=== PATIENT | female | born 1945 | race Caucasian/White ===

== ENCOUNTER 2016-10-14 11:08 | Inpatient (IN) | payer OTHER ==
[~2016-10-14] VITALS: Ht 157.5 cm; Wt 41.0 kg
[~2016-10-14 11:08] MED LIST: ATOR-22 PO; CALC-20 PO; ESOM45CA PO; FENO145T26 PO; MULT-845 PO; SERT1TAB71 PO
--- NOTE | 2016-10-14 11:41 | EMERGENCY ROOM VISIT NOTE ---
History Report prepared by Tanesha: Fiorella Cisse Under the Supervision of: Dr. Miracle Guerra M.D. First contact with patient: 11:27 Chief Complaint: VOMITING Stated Complaint: VOMITING, DIARRHEA, DIZZINESS Nursing Triage Summary: Triage note: Pt reports since sunday diarrhea, nausea, some vomitting, headache and dizziness. pt also reports cough x 2 weeks "my right ribs are sore and i don't know why." History of Present Illness The patient is a 71 year old female who presents to the Emergency Room with complaints of a persistent cough starting 4 days ago. She also complains of right sided chest pain and some shortness of breath. She has worsening pain with breathing. She has been smoking 1 pack of cigarettes a day for the past 50 years. She has a history of emphysema. She does not wear oxygen at home. She has not had any worsened difficulty breathing in the past few weeks. The patient initially had nausea and vomiting which has resolved. She also started having persistent diarrhea 4 days ago. A few days ago, the patient also started having dizziness and lightheadedness. When she feels lightheaded she attempts to lie down to prevent falling. She denies any injuries. This morning she had a syncopal episode. The patient denies fevers, chills, or any other complaints. She did not receive her flu shot this year. Source of History: patient Onset: 4 days ago Position: other (global) Quality: other (cough) Timing: other (persistent) Associated Symptoms: + SOB, + chest pain (right sided), + diarrhea, + nausea (resolved), + vomiting (resolved), No chills, No fevers Review of Systems See HPI for pertinent positives and negatives. A total of 10 systems reviewed and were otherwise negative. Past Medical & Surgical Medical Problems: (1) Emphysema lung (2) Syncope Family History No significant family history Social History Smoking Status: Current Every Day Smoker Housing Status: lives with family Occupation Status: retired Current/Historical Medications Scheduled Atorvastatin (Lipitor), 20 MG PO DAILY Calcium Carbonate-Vitamin D (Calcium 600 + D), 1 TAB PO BID Fenofibrate (Tricor ), 145 MG PO DAILY Sertraline Hcl (Zoloft), 50 MG PO DAILY Allergies Coded Allergies: No Known Allergies (Unverified , 12/25/14) Physical Exam Vital Signs Date Time Temp Pulse Resp B/P Pulse Ox O2 Delivery O2 Flow Rate FiO2 10/14/16 12:55 82 119/62 95 Room Air 82 127/58 84 117/63 10/14/16 12:12 92 10/14/16 12:07 91 18 106/58 92 Room Air 10/14/16 11:12 36.6 98 20 116/64 93 Room Air Physical Exam GENERAL: Patient is well appearing and in no acute distress. HEENT: No acute trauma, normocephalic atraumatic, mucous membranes moist, no nasal congestion, no scleral icterus. NECK: No stridor, no adenopathy, no meningismus, trachea is midline. LUNGS: Tactile fremitus. Prolonged I:E ratio. HEART: Tachycardic rate and regular rhythm. No murmurs, rubs, gallops appreciated. ABDOMEN: Soft, nontender, bowel sounds positive, no masses appreciated, no peritonitis. BACK: No midline tenderness, no CVA tenderness EXTREMITIES: Normal motion all extremities, no cyanosis, no edema. NEUROLOGIC: Alert and oriented, no acute motor or sensory deficits, no focal weakness, cranial nerves grossly intact. SKIN: No rash, no jaundice, no diaphoresis. Medical Decision & Procedures ER Provider Diagnostic Interpretation: X ray results and stated below per my interpretation and radiologist interpretation. CHEST 2 VIEWS ROUTINE CLINICAL HISTORY: Pneumonia, dizziness, diarrhea. COMPARISON STUDY: 12/25/2014 FINDINGS: The heart is normal in size. There is radiographic evidence of emphysema. There is dense consolidation involving the periphery of the right upper lobe. There is right hilar enlargement. Also evident are subtle left basal airspace opacities. There are no pleural effusions.[ IMPRESSION: 1. Right upper lobe pulmonary consolidation, consistent with pneumonia 2. Mild left basilar airspace opacities, likely secondary to an additional area of pneumonitis 3. Right hilar fullness. This could indicate reactive adenopathy although a central mass is not excluded 4. Radiographic follow-up subsequent to antibiotic therapy is recommended. Electronically signed by: Jon Woodruff M.D. 10/14/2016 12:56 PM Dictated Date/Time: 10/14/2016 12:54 PM As per my interpretation; right upper lobe pneumonia versus mass. Laboratory Results 10/14/16 11:35 Red Blood Count 4.21, Mean Corpuscular Volume 77.2, Mean Corpuscular Hemoglobin 27.3, Mean Corpuscular Hemoglobin Concent 35.4, Mean Platelet Volume 9.5, Neutrophils (%) (Auto) 94.5, Lymphocytes (%) (Auto) 1.1, Monocytes (%) (Auto) 2.8, Eosinophils (%) (Auto) 0.0, Basophils (%) (Auto) 0.0, Neutrophils # (Auto) 19.24, Lymphocytes # (Auto) 0.23, Monocytes # (Auto) 0.57, Eosinophils # (Auto) 0.00, Basophils # (Auto) 0.00 10/14/16 11:35 Test 10/14/16 11:35 10/14/16 12:35 10/14/16 13:03 White Blood Count 20.36 K/uL (4.8-10.8) Red Blood Count 4.21 M/uL (4.2-5.4) Hemoglobin 11.5 g/dL (12.0-16.0) Hematocrit 32.5 % (37-47) Mean Corpuscular Volume 77.2 fL (80-100) Mean Corpuscular Hemoglobin 27.3 pg (25-34) Mean Corpuscular Hemoglobin Concent 35.4 g/dl (32-36) Platelet Count 323 K/uL (130-400) Mean Platelet Volume 9.5 fL (7.4-10.4) Neutrophils (%) (Auto) 94.5 % Lymphocytes (%) (Auto) 1.1 % Monocytes (%) (Auto) 2.8 % Eosinophils (%) (Auto) 0.0 % Basophils (%) (Auto) 0.0 % Neutrophils # (Auto) 19.24 K/uL (1.4-6.5) Lymphocytes # (Auto) 0.23 K/uL (1.2-3.4) Monocytes # (Auto) 0.57 K/uL (0.11-0.59) Eosinophils # (Auto) 0.00 K/uL (0-0.5) Basophils # (Auto) 0.00 K/uL (0-0.2) RDW Standard Deviation 41.6 fL (36.4-46.3) RDW Coefficient of Variation 14.6 % (11.5-14.5) Immature Granulocyte % (Auto) 1.6 % Immature Granulocyte # (Auto) 0.32 K/uL (0.00-0.02) Anion Gap 16.0 mmol/L (3-11) Est Creatinine Clear Calc Drug Dose 16.4 ml/min Estimated GFR () 28.8 Estimated GFR (Non- 24.8 BUN/Creatinine Ratio 22.4 (10-20) Calcium Level 8.7 mg/dl (8.5-10.1) Phosphorus Level 3.3 mg/dl (2.5-4.9) Magnesium Level 1.6 mg/dl (1.8-2.4) Total Bilirubin 0.5 mg/dl (0.2-1) Direct Bilirubin 0.2 mg/dl (0-0.2) Aspartate Amino Transf (AST/SGOT) 76 U/L (15-37) Alanine Aminotransferase (ALT/SGPT) 62 U/L (12-78) Alkaline Phosphatase 225 U/L (45-117) Troponin I < 0.015 ng/ml (0-0.045) Total Protein 7.9 gm/dl (6.4-8.2) Albumin 3.1 gm/dl (3.4-5.0) Lipase 47 U/L (73-393) Venous Blood pH 7.42 (7.36-7.41) Venous Blood Partial Pressure CO2 32 mmHg (38.0-50.0) Venous Blood Partial Pressure O2 19 mmHg Venous Blood HCO3 20 mmol/L Venous Blood Oxygen Saturation < 60.0 % Venous Blood Base Excess -3.8 mmol/L Medications Administered Medications (Trade) Dose Ordered Sig/Jarrod Route Start Time Stop Time Status Last Admin Dose Admin Sodium Chloride (Nss 1000ml) 2,000 ml @ 999 mls/hr Q2H1M IV 10/14/16 12:00 11/13/16 11:59 10/14/16 12:00 999 MLS/HR Potassium Chloride (Klor-Con M10) 40 meq NOW STAT PO 10/14/16 12:36 10/14/16 12:40 DC 10/14/16 12:53 40 MEQ Magnesium Sulfate (Magnesium Sulfate) 1 gm NOW STAT IV 10/14/16 12:36 10/14/16 12:41 DC 10/14/16 12:54 1 GM ECG Indication: chest pain, SOB/dyspnea Rate (beats per minute): 91 Rhythm: normal sinus Findings: other (normal axis; normal intervals; poor r wave progression) Comparison ECG Date: December 25, 2014 Change: no significant change ED Course 1127: The patient was evaluated in room B04B. A complete history and physical exam was performed. 1200: Sodium Chloride 2000 ml @ 999 mls/hr IV 1236: Magnesium Sulfate 1 gm IV, Potassium Chloride 40 meq PO 1257: Rocephin Inj 1 gm IV 1300: Tamiflu Cap 75 mg PO, Levofloxacin 750 mg IV 1305: Upon reevaluation, the patient is resting comfortably. Discussed results and treatment plan with the patient. She verbalized understanding and agreement with the treatment plan. I discussed the patient's case with Dr. Gallegos, from [facility]. The patient will be evaluated for further management. Medical Decision Differential diagnosis: Etiologies such as infections, reactive airway disease, pneumonia, pneumothorax , COPD, CHF, cardiac ischemia, pulmonary embolism, musculoskeletal, gastrointestinal, as well as others were entertained. Patient is 71-year-old female without significant past medical history with the exception of COPD and a 50+ pack year smoking history who presents with a 5 day history of generalized weakness and syncope, vomiting, diarrhea, dehydration. She was found today to have a right upper lobe pneumonia she is at risk with structural lung disease for incontinent influenza, I have started her on empiric 1 g Rocephin IV, 750 mg of Levaquin IV, and Tamiflu 75 mg by mouth 1, her influenza antigen and reflexed PCR are still pending at this time. I discussed the case with Dr. Mortensen at [facility] for further inpatient management, she has an JAMARI which given the multiple medical conditions and complex of these she requires further inpatient management. Consults Time Called: 1300 Consulting Physician: Dr. Gallegos, from [facility] Returned Call: 1305 I discussed the patient's case with Dr. Gallegos, from [facility]. Impression Primary Impression: Right upper lobe pneumonia Additional Impressions: Nausea, vomiting, and diarrhea Hypokalemia Vomiting Hypomagnesemia JAMARI (acute kidney injury) COPD (chronic obstructive pulmonary disease) Hyponatremia Elevated alkaline phosphatase level Hypoalbuminemia Scribe Attestation The scribes documentation has been prepared under my direction and personally reviewed by me in its entirety. I confirm that the note above accurately reflects all work, treatment, procedures, and medical decision making performed by me. Departure Information Dispostion Being Evaluated By Hospitalist Referrals Uziel Fontaine M.D.(OSCAR) (PCP) Patient Instructions My [facility] Problem Qualifiers
[2016-10-14] MEDS ORDERED: SODIUM CHLORIDE 0.9% 1000ML 2,000 ML IV SCH (12:00)
[2016-10-14 12:15] LABS: COMPLETE YES; HEMATOCRIT 32.5 % (37-47); IG% 1.6 %; LYMPH % 1.1 %; LYMPH ABS # 0.23 K/uL (1.2-3.4); MEAN CELL VOLUME 77.2 fL (80-100); MEAN CORPUSCULAR HEMOGLOBIN 27.3 pg (25-34); MEAN CORPUSCULAR HGB CONC 35.4 g/dl (32-36); MEAN PLATELET VOLUME 9.5 fL (7.4-10.4); MONO % 2.8 %; NEUT % 94.5 %; PLATELET COUNT 323 K/uL (130-400); RED BLOOD COUNT 4.21 M/uL (4.2-5.4); WHITE BLOOD COUNT 20.36 K/uL (4.8-10.8)
[2016-10-14 12:36] LABS: ALKALINE PHOSPHATASE 225 U/L (45-117); ALT/SGPT 62 U/L (12-78); AST/SGOT 76 U/L (15-37); BLOOD UREA NITROGEN 45 mg/dl (7-18); BUN/CREATININE RATIO 22.4 (10-20); CALCIUM 8.7 mg/dl (8.5-10.1); CARBON DIOXIDE 19 mmol/L (21-32); CHLORIDE 95 mmol/L (98-107); GLUCOSE 124 mg/dl (70-99); MAGNESIUM 1.6 mg/dl (1.8-2.4); PHOSPHORUS 3.3 mg/dl (2.5-4.9); POTASSIUM 2.5 mmol/L (3.5-5.1); SODIUM 131 mmol/L (136-145)
[2016-10-14] MEDS ORDERED: POTASSIUM CHLORIDE 10 MEQ TABCR PO STA ×3 (12:36→21:12)
[2016-10-14] MEDS ORDERED: MAGNESIUM SULFATE 1GM / D5W 1 GM BAG IV STA (12:36)
[2016-10-14 12:53] LABS: VEN BLD GAS O2 SATURATION < 60.0 %; VEN BLOOD GAS BASE EXCESS -3.8 mmol/L; VENOUS BLOOD GAS PCO2 32 mmHg (38.0-50.0); VENOUS BLOOD GAS PO2 19 mmHg
[2016-10-14] MEDS ORDERED: CEFTRIAXONE SOD INJ 1 GM ADDVIAL IV STA (12:57)
--- NOTE | 2016-10-14 12:57 | DIAGNOSTIC IMAGING REPORT ---
CHEST 2 VIEWS ROUTINE CLINICAL HISTORY: Pneumonia, dizziness, diarrhea. COMPARISON STUDY: 12/25/2014 FINDINGS: The heart is normal in size. There is radiographic evidence of emphysema. There is dense consolidation involving the periphery of the right upper lobe. There is right hilar enlargement. Also evident are subtle left basal airspace opacities. There are no pleural effusions.[ IMPRESSION: 1. Right upper lobe pulmonary consolidation, consistent with pneumonia 2. Mild left basilar airspace opacities, likely secondary to an additional area of pneumonitis 3. Right hilar fullness. This could indicate reactive adenopathy although a central mass is not excluded 4. Radiographic follow-up subsequent to antibiotic therapy is recommended. Electronically signed by: Jon Woodruff M.D. 10/14/2016 12:56 PM Dictated Date/Time: 10/14/2016 12:54 PM
[2016-10-14] MEDS ORDERED: OSELTAMIVIR PHOSPHATE 75 MG CAP PO ONE (13:00)
[2016-10-14] MEDS ORDERED: LEVAQUIN 750MG / 150ML D5W IV ONE (13:00)
[2016-10-14] MEDS ORDERED: MAGNESIUM HYDROXIDE SUSP 30 ML UDC PO PRN (13:45)
[2016-10-14] MEDS ORDERED: ONDANSETRON INJ 2 MG/ML 2 ML VIAL IV PRN (13:45)
[2016-10-14] MEDS ORDERED: ALUMINUM/MAGNESIUM/SIMETH (MAALOX MAX) 30 ML UDC PO PRN (13:45)
[2016-10-14 14:31] VITALS: BP 146/72; PULSE 92; TEMP 36.4; O2SAT 90; O2SAT 93; Ht 157.5 cm; Wt 41.0 kg
[2016-10-14] MEDS ORDERED: POTASSIUM CHLORIDE INJ 40 MEQ in SODIUM CHLORIDE 0.9% 1000ML 1,000 ML IV SCH (15:30)
[2016-10-14 15:34] LABS: INFLUENZA A PCR Neg for Influ A (NEG); INFLUENZA B PCR Neg for Influ B (NEG)
--- NOTE | 2016-10-14 15:35 | History and Physical ---
History & Physical Date & Time of Service: Oct 14, 2016 at 15:35 Chief Complaint: Hypokalemia,Hypomagnesemia,R Upper Lobe Pneumonia Primary Care Physician: Uziel Fontaine M.D.(OSCAR) History of Present Illness Source: patient this is a 71 yo F with hx of Depression , anxiety disorder , heavy tobacco use , brought to ED by her Daughters , as pt this AM fell down in her bathroom , having ongoing nausea , vomiting , diarrhea Pt has not been feeling well since last Sunday , had fever and chills ongoing nausea , vomiting , fever , severe body ache had diarrhea pt smokes 1 pk cig a day , has chronic cough this morning -pt was found on floor of bathroom by her daughter , ongoing diarrhea , in coherent ED lab showed : WBC 20 K , hyponatremia , Hypokalemia, low mg Cxray shows dense Rt upper lobe infiltrate pt initially refused to be admitted -stating she does not like hospital, wants to go home and wants to have instructions how she can take care of her pneumonia, dehydration at home pt is counselled , updated that she is in Sepsis -critical illness due to pneumonia with severe dehydration , electrolyte derangement, need IV Abx , IVF , close monitoring in Hospital setting -good recovering with early aggressive treatment with out that she can develop septic shock -which could be life threatening pt is agreeable to stay in hospital for over weekend for treatment Daughters present at bedside Past Medical/Surgical History Medical Problems: (1) Emphysema lung Status: Chronic (2) Syncope Status: Resolved Family History No significant family history Social History Smoking Status: Current Every Day Smoker Occupational Status: retired Allergies Coded Allergies: No Known Allergies (Unverified , 12/25/14) Home Medications Scheduled Atorvastatin (Lipitor), 20 MG PO DAILY Calcium Carbonate-Vitamin D (Calcium 600 + D), 1 TAB PO BID Fenofibrate (Tricor ), 145 MG PO DAILY Sertraline Hcl (Zoloft), 50 MG PO DAILY Review of Systems Constitutional: + chills, + fatigue, + fever, + sweats, + weakness Respiratory: + cough, + dyspnea on exertion, + shortness of breath, + sputum, + wheezing Cardiovascular: + PND, + chest pain, + orthopnea Abdomen: + diarrhea, + nausea, + pain, + vomiting Musculoskeletal: + muscle pain Neurologic: + vertigo, + weakness Physical Exam Vital Signs Date Time Temp Pulse Resp B/P Pulse Ox O2 Delivery O2 Flow Rate FiO2 10/14/16 14:31 36.4 92 25 146/72 90 Room Air 10/14/16 14:21 87 16 129/71 93 Room Air 10/14/16 13:45 82 20 137/74 92 Room Air 10/14/16 12:55 82 119/62 95 Room Air 82 127/58 84 117/63 10/14/16 12:12 92 10/14/16 12:07 91 18 106/58 92 Room Air 10/14/16 11:12 36.6 98 20 116/64 93 Room Air General Appearance: no apparent distress, + thin Head: normocephalic, atraumatic Eyes: normal inspection Respiratory/Chest: + decreased breath sounds, + rales (at rt base ) Cardiovascular: regular rate, rhythm Abdomen/GI: non tender, soft Extremities/Musculoskelatal: normal capillary refill, no pedal edema, normal range of motion Neurologic/Psych: no motor/sensory deficits, alert, normal mood/affect, oriented x 3 Skin: normal color, warm/dry, no rash Lymphatic: no adenopathy Diagnostics Laboratory Results Results Past 24 Hours Test 10/14/16 11:34 10/14/16 11:35 10/14/16 12:35 10/14/16 13:03 Range/Units D-Dimer 930 0-500 ug/L FEU Influenza Type A (RT-PCR) Neg for Influ A NEG Influenza Type B (RT-PCR) Neg for Influ B NEG White Blood Count 20.36 4.8-10.8 K/uL Red Blood Count 4.21 4.2-5.4 M/uL Hemoglobin 11.5 12.0-16.0 g/dL Hematocrit 32.5 37-47 % Mean Corpuscular Volume 77.2 80-100 fL Mean Corpuscular Hemoglobin 27.3 25-34 pg Mean Corpuscular Hemoglobin Concent 35.4 32-36 g/dl Platelet Count 323 130-400 K/uL Mean Platelet Volume 9.5 7.4-10.4 fL Neutrophils (%) (Auto) 94.5 % Lymphocytes (%) (Auto) 1.1 % Monocytes (%) (Auto) 2.8 % Eosinophils (%) (Auto) 0.0 % Basophils (%) (Auto) 0.0 % Neutrophils # (Auto) 19.24 1.4-6.5 K/uL Lymphocytes # (Auto) 0.23 1.2-3.4 K/uL Monocytes # (Auto) 0.57 0.11-0.59 K/uL Eosinophils # (Auto) 0.00 0-0.5 K/uL Basophils # (Auto) 0.00 0-0.2 K/uL RDW Standard Deviation 41.6 36.4-46.3 fL RDW Coefficient of Variation 14.6 11.5-14.5 % Immature Granulocyte % (Auto) 1.6 % Immature Granulocyte # (Auto) 0.32 0.00-0.02 K/uL Sodium Level 131 136-145 mmol/L Potassium Level 2.5 3.5-5.1 mmol/L Chloride Level 95 98-107 mmol/L Carbon Dioxide Level 19 21-32 mmol/L Anion Gap 16.0 3-11 mmol/L Blood Urea Nitrogen 45 7-18 mg/dl Creatinine 2.00 0.60-1.20 mg/dl Est Creatinine Clear Calc Drug Dose 16.4 ml/min Estimated GFR () 28.8 Estimated GFR (Non- 24.8 BUN/Creatinine Ratio 22.4 10-20 Random Glucose 124 70-99 mg/dl Calcium Level 8.7 8.5-10.1 mg/dl Phosphorus Level 3.3 2.5-4.9 mg/dl Magnesium Level 1.6 1.8-2.4 mg/dl Total Bilirubin 0.5 0.2-1 mg/dl Direct Bilirubin 0.2 0-0.2 mg/dl Aspartate Amino Transf (AST/SGOT) 76 15-37 U/L Alanine Aminotransferase (ALT/SGPT) 62 12-78 U/L Alkaline Phosphatase 225 45-117 U/L Troponin I < 0.015 0-0.045 ng/ml Total Protein 7.9 6.4-8.2 gm/dl Albumin 3.1 3.4-5.0 gm/dl Lipase 47 73-393 U/L Venous Blood pH 7.42 7.36-7.41 Venous Blood Partial Pressure CO2 32 38.0-50.0 mmHg Venous Blood Partial Pressure O2 19 mmHg Venous Blood HCO3 20 mmol/L Venous Blood Oxygen Saturation < 60.0 % Venous Blood Base Excess -3.8 mmol/L Lactic Acid Level 0.9 0.4-2.0 mmol/L Diagnostic Radiology CHEST 2 VIEWS ROUTINE CLINICAL HISTORY: Pneumonia, dizziness, diarrhea. COMPARISON STUDY: 12/25/2014 FINDINGS: The heart is normal in size. There is radiographic evidence of emphysema. There is dense consolidation involving the periphery of the right upper lobe. There is right hilar enlargement. Also evident are subtle left basal airspace opacities. There are no pleural effusions.[ IMPRESSION: 1. Right upper lobe pulmonary consolidation, consistent with pneumonia 2. Mild left basilar airspace opacities, likely secondary to an additional area of pneumonitis 3. Right hilar fullness. This could indicate reactive adenopathy although a central mass is not excluded 4. Radiographic follow-up subsequent to antibiotic therapy is recommended. Impression Assessment and Plan SEPSIS : meets criteria -presents with fever , leukocytosis , tachycardia source of infection -Rt upper lobe pneumonia IV fluids Abx with Levaquin follow blood culture Influenza Ag negative RT UPPER LOBE PNEUMONIA presents with non productive cough 3-4 days of fever , not feeling well , poor appetite Cxray shows RUL pneumonia pt is a chronic heavy smoker -did not had formal diagnosis of COPD empiric Abx with Levaquin blood //sputum culture and gram statin ordered repeat Cxray in AM does not have any audible wheeze no evidence of Hypoxia cont to monitor clinically pt is counselled for smoking cessation NAUSEA/VOMITING /DIARRHEA possible due to viral gastroenteritis Flu PCR negative supportive care with IV Fluids antiemetics ordered stool for C diff MARKED LEUKOCYTOSIS due to above viral illness /RUL pneumonia Lactic acid level 0.9 Abx , fluid resuscitation follow blood /urine /sputum culture stool c diff daily CBC ordered ELECTROLYTE DERANGEMENTS ( LOW NA/LOW K/LOW MG ) Hyponatremia Na 131 /Marked Hypokalemia K 2.5 /Hypomagnesemia Mg 1.6 due to GI loss -as per Daughters pt has not eaten for past 2-3 days had ongoing Diarrhea /vomiting given 40 meq KCL PO in ED ordered for 20 meq PO IVF NSS + 40 meq @ 100 ml /hr given 1 gm Mg sulfate in ER repeat Labs at 1600 cont to monitor PRP and correct lytes accordingly JAMARI : due to above GI loss ( cr 0.8 on 06/02 ) /poor PO intake , pneumonia IVF avoid nephrotoxins -no NSAID's , contrast studies follow PRP HX OF HYPERLIPIDEMIA cont statin ANXIETY DISORDER/DEPRESSION cont Zoloft PRN Ativan ordered FULL CODE DVT PROPHYLAXIS : DISPOSITION : expected to return to home when medically stable Medicine follow up with Dr Fontaine at [facility] Plan of care d/w patient and daughters Pt was initially very reluctant to stay in hospital -later agreeable to stay till Sunday to receive IV antibiotics , Fluids and electrolyte supplement pt will be followed by Dr Langford form tomorrow 10/15/16 Advanced Directives Existing Advance Directive: No Existing Living Will: No Existing Power of Inspector Fibrous Wallboard: No VTE Prophylaxis VTE Risk Assessment Done? Y/N: Yes Risk Level: Moderate
[2016-10-14] MEDS ORDERED: ALBUT/IPRATROP 3MG/0.5MG NEB 3 ML VIAL INH PRN (15:45)
[2016-10-14 15:54] LABS: INR 1.6 (0.9-1.1); PROTHROMBIN TIME (PATIENT) 17.8 SECONDS (9.0-12.0)
[2016-10-14 16:00] VITALS: PULSE 95
[2016-10-14 16:10] LABS: URINE APPEARANCE CLEAR (CLEAR); URINE BILIRUBIN NEG (NEG); URINE COLOR YELLOW; URINE EPITHELIAL CELL AUTO >30 /lpf (0-5); URINE NITRITE NEG (NEG); URINE SPECIFIC GRAVITY 1.015 (1.000-1.030); UROBILINOGEN NEG (NEG); ZZUR CULT IF INDIC CLEAN CATCH NO
[2016-10-14] MEDS ORDERED: LEVOFLOXACIN CONSULT ACTIVE PRN (16:15)
[2016-10-14] MEDS ORDERED: POTASSIUM PHOS 3 MMOL/1 ML INFUSION IV STA (16:18)
[2016-10-14 16:24] LABS: MANUAL MICROSCOPIC REQUIRED? NO; REVIEW REQ? YES
[2016-10-14] MEDS ORDERED: NURSING VERBAL MED ORDER ONE ×2 (16:30→17:15)
[2016-10-14 16:41] LABS: BUN/CREATININE RATIO 23.6 (10-20); CALCIUM 8.2 mg/dl (8.5-10.1); CREATININE 1.7 mg/dl (0.60-1.20); MAGNESIUM 2.1 mg/dl (1.8-2.4); POTASSIUM 2.5 mmol/L (3.5-5.1)
[2016-10-14] MEDS ORDERED: MAGNESIUM SULFATE 1GM / D5W 1 GM in PREMIXED IN D5W 100 ML IV SCH (17:00)
[2016-10-14] MEDS: POTASSIUM CHLORIDE 20 MEQ TABCR PO SCH ×2 (17:44→18:18)
[2016-10-14 20:47] VITALS: BP 120/64; PULSE 104; TEMP 36.7; O2SAT 91
[2016-10-14 20:56] LABS: BUN/CREATININE RATIO 24.6 (10-20); CREATININE 1.6 mg/dl (0.60-1.20); POTASSIUM 2.8 mmol/L (3.5-5.1)
[2016-10-14] MEDS ORDERED: METOPROLOL TARTRATE 50 MG TAB PO SCH (21:00)
[2016-10-14] MEDS: NSS + 20MEQ KCL 1000ML 1,000 ML IV SCH (21:26)
[2016-10-14] MEDS: CALCIUM 600MG + VIT D 400 IU TAB PO SCH (21:28)
[2016-10-14] MEDS: HEPARIN SOD 5000 UNIT/0.5 ML CARP SQ SCH (21:29)
--- NOTE | 2016-10-14 21:30 | Progress Note ---
Progress Note ATTENDING NOTE : repeat lab checked at 1999 continues to improve : NA 133 , k 2.8 , cr improved 1.6 , Mg 2.1 ordered for 40meq PO K changed IVF NSS + 20 meq rate increased 125 ml /hr repeat all labs in AM remains afebrile, mild tachycardia 104 ; BP stable cont to monitor in tele
[2016-10-14 23:33] VITALS: BP 148/69; PULSE 99; TEMP 36.7; O2SAT 92
[2016-10-15] VITALS (13 sets, daily range): BP systolic 108–200; BP diastolic 60–85; PULSE 90–109; TEMP 36.3–36.7; O2SAT 75–90
[2016-10-15] MEDS: POTASSIUM CHLR 10 MEQ / WTR 10 MEQ in PREMIXED WATER 100 ML IV SCH ×2 (05:15→05:16)
[2016-10-15] MEDS: NSS + 20MEQ KCL 1000ML 1,000 ML IV SCH ×2 (05:17→17:54)
[2016-10-15] MEDS ORDERED: VANCOMYCIN HCL 125 MG/2.5ML SOLN PO ONE (05:52)
[2016-10-15 05:55] LABS: HEMATOCRIT 28.3 % (37-47); MEAN CELL VOLUME 76.7 fL (80-100); MEAN CORPUSCULAR HEMOGLOBIN 26.8 pg (25-34); MEAN PLATELET VOLUME 9.3 fL (7.4-10.4); PLATELET COUNT 280 K/uL (130-400); RED BLOOD COUNT 3.69 M/uL (4.2-5.4); WHITE BLOOD COUNT 15.73 K/uL (4.8-10.8)
[2016-10-15] MEDS ORDERED: RASPBERRY SYRUP 5 ML UDP PO STA (06:05)
[2016-10-15 06:15] LABS: COMPLETE YES; IG% 7.4 %; LYMPH % 1.8 %; LYMPH ABS # 0.28 K/uL (1.2-3.4); MONO % 2.9 %; NEUT % 87.9 %
[2016-10-15 06:30] LABS: BUN/CREATININE RATIO 29.8 (10-20); CALCIUM 8.8 mg/dl (8.5-10.1); CREATININE 1.2 mg/dl (0.60-1.20); MAGNESIUM 1.9 mg/dl (1.8-2.4); POTASSIUM 4.2 mmol/L (3.5-5.1)
[2016-10-15 06:41] LABS: ALB/GLOB RATIO 0.6 (0.9-2)
[2016-10-15] MEDS: HEPARIN SOD 5000 UNIT/0.5 ML CARP SQ SCH ×2 (08:03→20:56)
[2016-10-15] MEDS: POTASSIUM CHLORIDE 20 MEQ TABCR PO SCH (08:05)
[2016-10-15] MEDS: SERTRALINE HCL 50 MG TAB PO SCH (08:05)
[2016-10-15] MEDS: VANCOMYCIN HCL 125 MG/2.5ML SOLN PO SCH ×4 (08:05→20:57)
[2016-10-15] MEDS: RASPBERRY SYRUP 5 ML UDP PO SCH ×4 (08:05→20:57)
[2016-10-15] MEDS: ATORVASTATIN 20 MG TAB PO SCH (08:05)
[2016-10-15] MEDS: FENOFIBRATE 145 MG TAB PO SCH (08:05)
--- NOTE | 2016-10-15 08:22 | DIAGNOSTIC IMAGING REPORT ---
CHEST ONE VIEW PORTABLE HISTORY: right upper lobe pneumonia COMPARISON: Chest 10/14/2016. FINDINGS: Progressive airspace opacity involving the right lung. The heart is normal in size. Left basilar interstitial thickening remains unchanged. No pneumothorax. Mild emphysema. Right hilar fullness is again noted. IMPRESSION: Progressive right lung airspace opacity consistent with worsening pneumonia. Right hilar fullness and left lower lobe interstitial opacities persist. Recommend follow to complete resolution. Electronically signed by: Chandra Tomas M.D. 10/15/2016 8:21 AM Dictated Date/Time: 10/15/2016 8:20 AM
[2016-10-15] MEDS: CALCIUM 600MG + VIT D 400 IU TAB PO SCH ×2 (09:27→21:08)
[2016-10-15] MEDS: LACTOBACILLUS ACIDOPHILUS (FLORANEX) TAB PO SCH ×3 (09:27→18:30)
--- NOTE | 2016-10-15 10:56 | Progress Note ---
Internal Med Progress Note Date of Service: Oct 15, 2016. Provider Documentation: SUBJECTIVE: Patient is alert/awake & is sitting comfortably in the bed in no distress. Breathing comfortably. Denies any nausea/vomiting. Diarrhea is improving. No abdominal pain. No other new change or complaint. OBJECTIVE: Vital Signs-as noted below Examination: General Appearance: Alert/Awake in no apparent distress, + thin Head: normocephalic, atraumatic Eyes: normal inspection ENT: Hearing is normal.Ears, Nose & Throat are normal looking. Neck: Supple, Midline trachea, No JVD. Respiratory/Chest: B/L Moderate air entry, Few fine rales heard at Right lung base. Cardiovascular: regular rate, rhythm, Normal S1,S2. Abdomen/GI: non tender, soft Extremities/Musculoskeletal: normal capillary refill, no pedal edema, normal range of motion Neurologic/Psych: no motor/sensory deficits, alert, normal mood/affect, oriented x 3 Skin: normal color, warm/dry, no rash Lymphatic: no adenopathy Lab data as noted below. ASSESSMENT & PLAN: Right Upper Lobe Pneumonia: Presents with non productive cough with3-4 days of fever , not feeling well , poor appetite Chest X-Ray shows RUL pneumonia. Patient is a chronic heavy smoker -did not had formal diagnosis of COPD. Clinically improving. -Continue Levaquin (Day # 2), -Cultures are negative so far -Reviewed repeat Chest X-Ray in AM -Patient is counselled for smoking cessation -Encouraged to ambulate in AM. C, Diff Colitis: Started on PO Vancomycin(Day # 1)and Lactobacillus. -Nausea/Vomiting has resolved -Diarrhea is resolving. Electrolyte Abnormalities: Resolving.Following closely. -Will replace as needed. Acute Kidney Injury: Due to volume depletion. Gradually improving. -Continue IVF -Avoid any Nephrotoxin. Hyperlipidemia: Continue Statin. History Anxiety/Depression: Stable. Continue Zoloft. -Ativan as needed. Code Status: FULL CODE DVT Prophylaxis: SCDs. Disposition: : Expected to return to home when medically stable. Ordered PT. Medicine follow up with Dr Fontaine at [facility] Vital Signs: Date Time Temp Pulse Resp B/P Pulse Ox O2 Delivery O2 Flow Rate FiO2 10/15/16 08:00 Nasal Cannula 2.0 10/15/16 07:45 36.3 101 18 151/65 90 2.0 10/15/16 04:33 Nasal Cannula 2.0 10/15/16 03:59 36.4 91 20 108/60 89 Nasal Cannula 2.0 10/15/16 00:06 Nasal Cannula 2.0 10/14/16 23:33 36.7 99 20 148/69 92 Nasal Cannula 2.0 10/14/16 20:47 36.7 104 22 120/64 91 Nasal Cannula 2.0 10/14/16 20:07 Nasal Cannula 2.0 10/14/16 16:10 Nasal Cannula 2.0 10/14/16 16:00 95 18 10/14/16 14:31 36.4 92 25 146/72 90 Room Air 10/14/16 14:21 87 16 129/71 93 Room Air 10/14/16 13:45 82 20 137/74 92 Room Air 10/14/16 12:55 82 119/62 95 Room Air 82 127/58 84 117/63 10/14/16 12:12 92 10/14/16 12:07 91 18 106/58 92 Room Air 10/14/16 11:12 36.6 98 20 116/64 93 Room Air Lab Results: Results Past 24 Hours Test 10/14/16 11:34 10/14/16 11:35 10/14/16 12:35 10/14/16 13:03 Range/Units Prothrombin Time 17.8 9.0-12.0 SECONDS Prothromb Time International Ratio 1.6 0.9-1.1 D-Dimer 930 0-500 ug/L FEU Influenza Type A (RT-PCR) Neg for Influ A NEG Influenza Type B (RT-PCR) Neg for Influ B NEG White Blood Count 20.36 4.8-10.8 K/uL Red Blood Count 4.21 4.2-5.4 M/uL Hemoglobin 11.5 12.0-16.0 g/dL Hematocrit 32.5 37-47 % Mean Corpuscular Volume 77.2 80-100 fL Mean Corpuscular Hemoglobin 27.3 25-34 pg Mean Corpuscular Hemoglobin Concent 35.4 32-36 g/dl Platelet Count 323 130-400 K/uL Mean Platelet Volume 9.5 7.4-10.4 fL Neutrophils (%) (Auto) 94.5 % Lymphocytes (%) (Auto) 1.1 % Monocytes (%) (Auto) 2.8 % Eosinophils (%) (Auto) 0.0 % Basophils (%) (Auto) 0.0 % Neutrophils # (Auto) 19.24 1.4-6.5 K/uL Lymphocytes # (Auto) 0.23 1.2-3.4 K/uL Monocytes # (Auto) 0.57 0.11-0.59 K/uL Eosinophils # (Auto) 0.00 0-0.5 K/uL Basophils # (Auto) 0.00 0-0.2 K/uL RDW Standard Deviation 41.6 36.4-46.3 fL RDW Coefficient of Variation 14.6 11.5-14.5 % Immature Granulocyte % (Auto) 1.6 % Immature Granulocyte # (Auto) 0.32 0.00-0.02 K/uL Sodium Level 131 136-145 mmol/L Potassium Level 2.5 3.5-5.1 mmol/L Chloride Level 95 98-107 mmol/L Carbon Dioxide Level 19 21-32 mmol/L Anion Gap 16.0 3-11 mmol/L Blood Urea Nitrogen 45 7-18 mg/dl Creatinine 2.00 0.60-1.20 mg/dl Est Creatinine Clear Calc Drug Dose 16.4 ml/min Estimated GFR () 28.8 Estimated GFR (Non- 24.8 BUN/Creatinine Ratio 22.4 10-20 Random Glucose 124 70-99 mg/dl Calcium Level 8.7 8.5-10.1 mg/dl Phosphorus Level 3.3 2.5-4.9 mg/dl Magnesium Level 1.6 1.8-2.4 mg/dl Total Bilirubin 0.5 0.2-1 mg/dl Direct Bilirubin 0.2 0-0.2 mg/dl Aspartate Amino Transf (AST/SGOT) 76 15-37 U/L Alanine Aminotransferase (ALT/SGPT) 62 12-78 U/L Alkaline Phosphatase 225 45-117 U/L Troponin I < 0.015 0-0.045 ng/ml Total Protein 7.9 6.4-8.2 gm/dl Albumin 3.1 3.4-5.0 gm/dl Lipase 47 73-393 U/L Hepatitis C Antibody Screen NEG NEG Venous Blood pH 7.42 7.36-7.41 Venous Blood Partial Pressure CO2 32 38.0-50.0 mmHg Venous Blood Partial Pressure O2 19 mmHg Venous Blood HCO3 20 mmol/L Venous Blood Oxygen Saturation < 60.0 % Venous Blood Base Excess -3.8 mmol/L Lactic Acid Level 0.9 0.4-2.0 mmol/L Test 10/14/16 15:55 10/14/16 16:00 10/14/16 20:30 10/15/16 05:10 Range/Units Urine Color YELLOW Urine Appearance CLEAR CLEAR Urine pH 5.0 4.5-7.5 Urine Specific Ucon 1.015 1.000-1.030 Urine Protein 1+ NEG Urine Glucose (UA) NEG NEG Urine Ketones NEG NEG Urine Occult Blood TRACE NEG Urine Nitrite NEG NEG Urine Bilirubin NEG NEG Urine Urobilinogen NEG NEG Urine Leukocyte Esterase NEG NEG Urine WBC (Auto) 5-10 0-5 /hpf Urine RBC (Auto) 0-4 0-4 /hpf Urine Hyaline Casts (Auto) 1-5 0-5 /lpf Urine Epithelial Cells (Auto) >30 0-5 /lpf Urine Bacteria (Auto) NEG NEG Urine Renal Epithelial Cells 0-5 0-5 /lpf Sodium Level 134 133 135 136-145 mmol/L Potassium Level 2.5 2.8 4.2 3.5-5.1 mmol/L Chloride Level 99 100 107 98-107 mmol/L Carbon Dioxide Level 19 18 18 21-32 mmol/L Anion Gap 16.0 15.0 10.0 3-11 mmol/L Blood Urea Nitrogen 40 39 36 7-18 mg/dl Creatinine 1.70 1.60 1.20 0.60-1.20 mg/dl Est Creatinine Clear Calc Drug Dose 19.2 20.4 27.2 ml/min Estimated GFR () 35.0 37.7 53.4 Estimated GFR (Non- 30.2 32.5 46.1 BUN/Creatinine Ratio 23.6 24.6 29.8 10-20 Random Glucose 96 84 65 70-99 mg/dl Calcium Level 8.2 8.0 8.8 8.5-10.1 mg/dl Magnesium Level 2.1 1.9 1.8-2.4 mg/dl White Blood Count 15.73 4.8-10.8 K/uL Red Blood Count 3.69 4.2-5.4 M/uL Hemoglobin 9.9 12.0-16.0 g/dL Hematocrit 28.3 37-47 % Mean Corpuscular Volume 76.7 80-100 fL Mean Corpuscular Hemoglobin 26.8 25-34 pg Mean Corpuscular Hemoglobin Concent 35.0 32-36 g/dl Platelet Count 280 130-400 K/uL Mean Platelet Volume 9.3 7.4-10.4 fL Neutrophils (%) (Auto) 87.9 % Lymphocytes (%) (Auto) 1.8 % Monocytes (%) (Auto) 2.9 % Eosinophils (%) (Auto) 0.0 % Basophils (%) (Auto) 0.0 % Neutrophils # (Auto) 13.83 1.4-6.5 K/uL Lymphocytes # (Auto) 0.28 1.2-3.4 K/uL Monocytes # (Auto) 0.46 0.11-0.59 K/uL Eosinophils # (Auto) 0.00 0-0.5 K/uL Basophils # (Auto) 0.00 0-0.2 K/uL RDW Standard Deviation 41.8 36.4-46.3 fL RDW Coefficient of Variation 14.6 11.5-14.5 % Immature Granulocyte % (Auto) 7.4 % Immature Granulocyte # (Auto) 1.16 0.00-0.02 K/uL Total Bilirubin 0.4 0.2-1 mg/dl Aspartate Amino Transf (AST/SGOT) 52 15-37 U/L Alanine Aminotransferase (ALT/SGPT) 46 12-78 U/L Alkaline Phosphatase 213 45-117 U/L Total Protein 6.5 6.4-8.2 gm/dl Albumin 2.4 3.4-5.0 gm/dl Globulin 4.1 2.5-4.0 gm/dl Albumin/Globulin Ratio 0.6 0.9-2 Microbiology Results 10/14/16 Blood Culture, Received Pending 10/14/16 Blood Culture, Received Pending 10/15/16 Shiga Toxin Test, Received Pending 10/15/16 Stool Culture, Received Pending 10/15/16 WBC Smear - Final, Complete 10/15/16 C.difficile Toxin B Gene (PCR) - Final, Complete Positive for C. difficile toxin B gene
[2016-10-15] MEDS: BOOST PLUS VANILLA PO SCH ×4 (14:10→20:57)
[2016-10-15] MEDS ORDERED: ALBUT/IPRATROP 3MG/0.5MG NEB 3 ML VIAL INH ONE (22:09)
--- NOTE | 2016-10-15 22:41 | DIAGNOSTIC IMAGING REPORT ---
CHEST ONE VIEW PORTABLE CLINICAL HISTORY: reps distress dyspnea COMPARISON STUDY: 10/15/2016 7:22 AM FINDINGS: Slightly progressive interstitial infiltrative change at both lung bases. Unchanging right midlung and right upper lobe consolidative change. Left upper lung remains generally clear. No evidence for significant cardiac enlargement. IMPRESSION: Slightly progressive bibasilar parenchymal infiltrative change. All remaining findings are similar. Electronically signed by: Allan Taylor M.D. 10/15/2016 10:40 PM Dictated Date/Time: 10/15/2016 10:39 PM
[2016-10-15 22:54] LABS: ARTERIAL BLD GAS O2 SATURATION 87.2 % (90-95); ARTERIAL BLOOD GAS BASE EXCESS -3.1 mEq/L (-9-1.8); ARTERIAL BLOOD GAS HCO3 20 mmol/L (19-24); ARTERIAL BLOOD GAS PO2 65 mm/Hg (80-95); ARTERIAL BLOOD GAS pH 7.48 (7.35-7.45)
[2016-10-15 22:55] LABS: ALLEN TEST POS (POS); O2 ADMINISTRATION 6 L
[2016-10-15] MEDS ORDERED: VANCOMYCIN INJ 0 MG in SODIUM CHLORIDE 0.9% 250ML 250 ML IV SCH (23:15)
--- NOTE | 2016-10-15 23:18 | Progress Note ---
Progress Note [facility] Called to see patient for worsening oxygenation. Staff noted O2 sats in the 70's and 80's on 5 L NC. Patient denies SOB. No chest pain. Occasional nonproductive cough. Exam: General - chronically-ill appearing, somewhat tachypneic, no acute distress Neck- + JVD Lungs- diffuse moderate wheezing, coarse rales RUL, finer rales at bases Heart- distant heart sounds, RRR, tachy Extr- trace pretibial edema Stat portable chest x-ray: RUL infiltrate, worsening multilobar infiltrates bilaterally. ABG on 6 L NC: pO2 65, pCO2 27, HCO3 20, pH 7.48. A/P: 71 YO smoker, admitted with RUL pneumonia. O2 sats 93% on RA in ED. Influenza PCR negative. Now with acute respiratory failure, worsening CXR. Differential diagnosis includes progressive pneumonia, ARDS, pulmonary edema. Patent transferred to ICU and stat labs ordered. Case discussed with [facility] medicine who assumed care of patient. Daughter called with update. .
[2016-10-15] MEDS ORDERED: VANCOMYCIN INJ 1,000 MG in SODIUM CHLORIDE 0.9% 250ML 250 ML IV SCH (23:30)
[2016-10-15] MEDS ORDERED: VANCOMYCIN CONSULT ACTIVE PRN (23:30)
[2016-10-15] MEDS ORDERED: PIPERACILL/TAZOBAC IV 3.375 GM in DEXTROSE 5% 100ML 100 ML IV SCH (23:30)
[2016-10-15] MEDS ORDERED: RAPID SEQUENCE INDUCTION BAG ONE (23:37)
[2016-10-15 23:54] LABS: BASO % 0.1 %; BASO ABS # 0.01 K/uL (0-0.2); COMPLETE YES; EOS % 0.1 %; HEMATOCRIT 31.4 % (37-47); IG% 2.5 %; LYMPH % 3.6 %; MEAN CELL VOLUME 76.2 fL (80-100); MEAN CORPUSCULAR HEMOGLOBIN 27.4 pg (25-34); MONO % 3.4 %; NEUT % 90.3 %; PLATELET COUNT 370 K/uL (130-400); RED BLOOD COUNT 4.12 M/uL (4.2-5.4); WHITE BLOOD COUNT 16.71 K/uL (4.8-10.8)
[2016-10-16] VITALS (23 sets, daily range): BP systolic 117–180; BP diastolic 64–95; PULSE 78–102; TEMP 36.4–36.9; O2SAT 75–100
[2016-10-16 00:08] LABS: INR 1.5 (0.9-1.1); PARTIAL THROMBOPLASTIN RATIO 1.7
[2016-10-16 00:20] LABS: BUN/CREATININE RATIO 25.9 (10-20); CREATININE 0.79 mg/dl (0.60-1.20); MAGNESIUM 1.6 mg/dl (1.8-2.4); POTASSIUM 3.4 mmol/L (3.5-5.1)
[2016-10-16] MEDS ORDERED: [UNRECOGNIZED DRUG - OTHER] IV STA (00:26)
[2016-10-16] MEDS ORDERED: PREMIXED IV STA (00:26)
[2016-10-16] MEDS ORDERED: D5W IV STA (00:26)
[2016-10-16] MEDS ORDERED: MAGNESIUM SULFATE IV STA (00:26)
[2016-10-16 00:27] LABS: ALB/GLOB RATIO 0.6 (0.9-2)
[2016-10-16] MEDS ORDERED: PIPERACILL/TAZOBAC CONSULT ACTIVE PRN (00:30)
[2016-10-16] MEDS ORDERED: POTASSIUM CHLR 10 MEQ / WTR 10 MEQ in PREMIXED WATER 100 ML IV SCH (00:30)
[2016-10-16] MEDS ORDERED: ASPIRIN 81 MG CHEW PO STA ×2 (00:33→00:39)
[2016-10-16] MEDS ORDERED: HEPARIN IV LOW DOSE NO BOLUS STA (00:33)
[2016-10-16] MEDS ORDERED: METOPROLOL TARTRATE 1 MG/ML VIAL IV STA (00:39)
[2016-10-16] MEDS ORDERED: PANTOprazole INJ 40 MG in SYRINGE 0 ML IV STA (00:39)
[2016-10-16] MEDS ORDERED: FUROSEMIDE INJ 20 MG in SYRINGE 0 ML IV STA (00:40)
[2016-10-16] MEDS ORDERED: FUROSEMIDE 40 MG/4 ML VIAL IV STA (00:41)
[2016-10-16] MEDS ORDERED: POTASSIUM CHLORIDE 10 MEQ TABCR PO STA (00:41)
[2016-10-16] MEDS: NITROGLYCERIN OINT 2% 1GM PACKET EXT SCH ×5 (00:50→23:29)
[2016-10-16 01:03] LABS: CKMB/CK RATIO 14.9 (0-3.0)
[2016-10-16] MEDS ORDERED: HEPARIN IV BOLUS 3,000 UNIT in SYRINGE 0 ML IV STA (01:19)
--- NOTE | 2016-10-16 01:22 | Critical Care Consultation ---
Critical Care Consultation Date of Consultation: Oct 16, 2016. Attending Physician: Frank Langford MD Reason for Consultation: Hypoxic respiratory failure History of Present Illness Patient is a 71-year-old female who has a significant past medical history for gastroesophageal reflux, mild depression, and emphysematous lung disease with a greater than 84-liah-cecf smoking history, the patient continues to smoke at the present time. She was initially seen in the emergency department for a cough on October 14, she was diagnosed with an acute kidney injury, right upper lobe pneumonia, nausea vomiting diarrhea, hypomagnesemia, hypo-Jackie anemia, and hyponatremia. He was started on Levaquin and Rocephin for presumptive community-acquired pneumonia. She was later discovered to be positive for C. difficile colitis. There is no significant antibiotic use history in the recent past. She has influenza negative, and and was feeling better in the last 24 hours until early this evening she started having increasing shortness of breath. She's noticed to have increasing oxygen requirements and her oxygen saturations were dipping into the 70s. Repeat chest x-ray revealed bilateral alveolar infiltrates, improvement in the right upper lobe pneumonia. When I evaluated the patient in the ICU, she was mildly dyspneic, however able to talk in full sentences, and requiring 6 L of oxygen via nasal cannula, this was switched to a simple Ventimask as her saturations were still low 80s with conversation. At this point were antibiotics have been changed to vancomycin, Zosyn, discontinuation of Levaquin, and oral vancomycin. Family History No significant family history Social History Smoking Status: Current Every Day Smoker Housing Status: lives with family Occupation Status: retired Allergies Coded Allergies: No Known Allergies (Unverified , 12/25/14) Home Medications Scheduled Atorvastatin (Lipitor), 20 MG PO DAILY Calcium Carbonate-Vitamin D (Calcium 600 + D), 1 TAB PO BID Fenofibrate (Tricor ), 145 MG PO DAILY Sertraline Hcl (Zoloft), 50 MG PO DAILY Current Inpatient Medications Current Inpatient Medications Medications (Trade) Dose Ordered Sig/Jarrod Route Start Time Stop Time Status Last Admin Dose Admin Heparin Sodium (Porcine) (Heparin Sq 5000 Unit/0.5ml) 5,000 unit Q12 SQ 10/14/16 21:00 11/13/16 20:59 10/15/16 20:56 5,000 UNIT Acetaminophen (Tylenol Tab) 650 mg Q4H PRN PO 10/14/16 13:45 11/13/16 13:44 Al Hydrox/Mg Hydrox/Simethicone (Maalox Max Susp) 15 ml Q4H PRN PO 10/14/16 13:45 11/13/16 13:44 Magnesium Hydroxide (Milk Of Magnesia Susp) 30 ml Q12H PRN PO 10/14/16 13:45 11/13/16 13:44 Ondansetron HCl (Zofran Inj) 4 mg Q6H PRN IV 10/14/16 13:45 11/13/16 13:44 Atorvastatin Calcium (Lipitor Tab) 20 mg DAILY PO 10/15/16 09:00 11/14/16 08:59 10/15/16 08:05 20 MG Fenofibrate (Tricor Tab) 145 mg DAILY PO 10/15/16 09:00 11/14/16 08:59 10/15/16 08:05 145 MG Sertraline HCl (Zoloft Tab) 50 mg DAILY PO 10/15/16 09:00 11/14/16 08:59 10/15/16 08:05 50 MG Calcium/Vitamin D (Caltrate Plus Tab) 1 tab BID PO 10/14/16 21:00 11/13/16 20:59 10/15/16 21:08 1 TAB Albuterol/ Ipratropium (Duoneb) 3 ml Q4R PRN INH 10/14/16 15:45 Levofloxacin (Consult) 1 ea UD PRN N/A 10/14/16 16:15 11/13/16 16:14 Potassium Chloride (Klor-Con Tab) 20 meq QAM PO 10/15/16 09:00 11/14/16 08:59 10/15/16 08:05 20 MEQ Vancomycin HCl (Vancomycin Oral Soln) 125 mg QID PO 10/15/16 09:00 10/25/16 08:59 10/15/16 20:57 125 MG Raspberry (Raspberry Syrup 5ml Cup) 5 ml QID PO 10/15/16 09:00 10/25/16 08:59 10/15/16 20:57 5 ML Lactobacillus Acidophilus (Floranex Tab) 4 tab TIDM PO 10/15/16 07:30 11/14/16 07:29 10/15/16 18:30 4 TAB Enteral Nutritional Formula 1 can 1 can TID PO 10/15/16 14:00 11/14/16 13:59 10/15/16 20:57 1 CAN Levofloxacin 750 mg/Prmx 150 ml @ 100 mls/hr Q2D@1200 IV 10/16/16 12:00 10/21/16 11:59 Piperacillin Sod/ Tazobactam Sod 3.375 gm/Dextrose 115 ml @ 200 mls/hr TODAY@2330 IV 10/15/16 23:30 10/16/16 00:05 10/15/16 23:30 200 MLS/HR Vancomycin HCl/ Sodium Chloride (Vancomycin Inj/ Nss 250ml) 250 ml @ 125 mls/hr UD IV 10/15/16 23:15 10/22/16 23:14 UNV Lorazepam 0.25 mg 0.25 mg Q4H PRN PO 10/15/16 23:30 11/14/16 23:29 Vancomycin HCl/ Sodium Chloride (Vancomycin Inj/ Nss 250ml) 270 ml @ 125 mls/hr TODAY@2330 IV 10/15/16 23:30 10/16/16 01:40 10/15/16 23:30 125 MLS/HR Vancomycin HCl (Consult) 1 ea UD PRN N/A 10/15/16 23:30 11/14/16 23:29 Physical Exam Date Time Temp Pulse Resp B/P Pulse Ox O2 Delivery O2 Flow Rate FiO2 10/15/16 23:28 36.7 101 24 84 6.0 10/15/16 22:40 100 20 85 BiPAP/CPAP 6.0 10/15/16 21:57 36.7 101 24 200/85 84 Nasal Cannula 6.0 10/15/16 20:00 75 Nasal Cannula 5.0 10/15/16 15:50 Nasal Cannula 5.0 10/15/16 15:20 36.4 100 18 158/72 89 Nasal Cannula 5.0 10/15/16 14:51 36.4 109 20 90 5.0 10/15/16 14:43 109 90 10/15/16 12:00 Nasal Cannula 5.0 10/15/16 11:18 36.4 90 20 152/77 84 2.0 10/15/16 08:00 Nasal Cannula 2.0 10/15/16 07:45 36.3 101 18 151/65 90 2.0 10/15/16 04:33 Nasal Cannula 2.0 10/15/16 03:59 36.4 91 20 108/60 89 Nasal Cannula 2.0 GENERAL: Patient is well appearing and in no acute distress. HEENT: No acute trauma, normocephalic atraumatic, mucous membranes moist, no nasal congestion, no scleral icterus. NECK: No stridor, no adenopathy, no meningismus, trachea is midline. LUNGS: Tactile fremitus. No obvious wheezes HEART: Regular rate and regular rhythm. No murmurs, rubs, gallops appreciated. ABDOMEN: Soft, nontender, bowel sounds positive, no masses appreciated, no peritonitis. BACK: No midline tenderness, no CVA tenderness EXTREMITIES: Normal motion all extremities, no cyanosis, no edema. NEUROLOGIC: Alert and oriented, no acute motor or sensory deficits, no focal weakness, cranial nerves grossly intact. SKIN: No rash, no jaundice, no diaphoresis. Laboratory Results Last 24 Hours Test 10/15/16 05:10 10/15/16 22:42 10/15/16 23:45 White Blood Count 15.73 K/uL 16.71 K/uL Red Blood Count 3.69 M/uL 4.12 M/uL Hemoglobin 9.9 g/dL 11.3 g/dL Hematocrit 28.3 % 31.4 % Mean Corpuscular Volume 76.7 fL 76.2 fL Mean Corpuscular Hemoglobin 26.8 pg 27.4 pg Mean Corpuscular Hemoglobin Concent 35.0 g/dl 36.0 g/dl Platelet Count 280 K/uL 370 K/uL Mean Platelet Volume 9.3 fL 9.0 fL Neutrophils (%) (Auto) 87.9 % 90.3 % Lymphocytes (%) (Auto) 1.8 % 3.6 % Monocytes (%) (Auto) 2.9 % 3.4 % Eosinophils (%) (Auto) 0.0 % 0.1 % Basophils (%) (Auto) 0.0 % 0.1 % Neutrophils # (Auto) 13.83 K/uL 15.10 K/uL Lymphocytes # (Auto) 0.28 K/uL 0.60 K/uL Monocytes # (Auto) 0.46 K/uL 0.57 K/uL Eosinophils # (Auto) 0.00 K/uL 0.02 K/uL Basophils # (Auto) 0.00 K/uL 0.01 K/uL RDW Standard Deviation 41.8 fL 42.2 fL RDW Coefficient of Variation 14.6 % 15.0 % Immature Granulocyte % (Auto) 7.4 % 2.5 % Immature Granulocyte # (Auto) 1.16 K/uL 0.41 K/uL Sodium Level 135 mmol/L Potassium Level 4.2 mmol/L Chloride Level 107 mmol/L Carbon Dioxide Level 18 mmol/L Anion Gap 10.0 mmol/L Blood Urea Nitrogen 36 mg/dl Creatinine 1.20 mg/dl Est Creatinine Clear Calc Drug Dose 27.2 ml/min Estimated GFR () 53.4 Estimated GFR (Non- 46.1 BUN/Creatinine Ratio 29.8 Random Glucose 65 mg/dl Calcium Level 8.8 mg/dl Magnesium Level 1.9 mg/dl Total Bilirubin 0.4 mg/dl Aspartate Amino Transf (AST/SGOT) 52 U/L Alanine Aminotransferase (ALT/SGPT) 46 U/L Alkaline Phosphatase 213 U/L Total Protein 6.5 gm/dl Albumin 2.4 gm/dl Globulin 4.1 gm/dl Albumin/Globulin Ratio 0.6 Arterial Blood pH 7.48 Arterial Blood Partial Pressure CO2 27 mmHg Arterial Blood Partial Pressure O2 65 mm/Hg Arterial Blood HCO3 20 mmol/L Arterial Blood Oxygen Saturation 87.2 % Arterial Blood Base Excess -3.1 mEq/L Arterial Blood Gas Delivery 6 L Remi Test POS Prothrombin Time 16.0 SECONDS Prothromb Time International Ratio 1.5 Activated Partial Thromboplast Time 43.0 SECONDS Partial Thromboplastin Ratio 1.7 Diagnostic Results EKG dated 10/16/2016 at 00:40: Normal sinus rhythm rate of 97, normal axis normal intervals, septal infarct age indeterminate, mild morphology change, early ST depression in V4 V5 and V6 when compared to prior EKG dated 10/14/2016 at 12:04 abnormal EKG Assessment & Plan (1) ARDS (adult respiratory distress syndrome) (2) Acute respiratory failure with hypoxia (3) Right upper lobe pneumonia (4) Acute respiratory alkalosis (5) Elevated INR (6) Elevated AST (SGOT) (7) Elevated alkaline phosphatase level (8) JAMARI (acute kidney injury) (9) Hyponatremia (10) Emphysema lung (11) Tobacco consumption (12) Tobacco dependence (13) Depression (14) Acute anxiety (15) Elevated troponin I level (16) Elevated brain natriuretic peptide (BNP) level Neuro: Depression: Continue antidepressant Anxiety: Ativan when necessary Respiratory: Acute hypoxic respiratory failure: Acute respiratory alkalosis ARDS: Moderate: P/F ratio 160 vs CHF Right upper lobe pneumonia Vancomycin and Zosyn added, will still require coverage for atypicals as this is still a community-acquired pneumonia Recheck EKG and ensure her QTC is within normal limits No steroids at this point, not retaining CO2, no obvious wheezes Will recheck influenza Elevated d-dimer PE remains in the differential, however the d-dimer is most likely elevated due to the right upper lobe pneumonia. Given the elevated troponins and BNP, she will be started on heparin infusion Will wait to get CT scan at this point as we will be empirically treating and patient had a recent JAMARI Bilateral venous duplex of the lower extremities pending Cardiovascular: Elevated troponin NSTEMI Started heparin infusion, continue to trend troponins, aspirin 325 mg Elevated brain atretic peptide Concern for volume overload, we'll begin gentle diuresis Will hold SURINDER inhibitor due to a K Cardiology consult and morning Will start CPAP/BiPAP for positive cardiovascular effects GI: Elevated AST Elevated alkaline phosphatase Hepatitis C negative May be mild transaminitis from possible cor pulmonale, will check echo and abdominal ultrasound Renal Acute kidney injury improving Strict I's and O's Lasix 40 mg time once given Possible volume overload Hypomagnesemia 2 g magnesium ordered Hematology Anemia On heparin infusion for NSTEMI ID: Community-acquired pneumonia On Zosyn, vancomycin, Levaquin given acute worsening, if this appears to be cardiogenic in nature would have low threshold to de-escalate early Influenza negative: We will recheck given the bilateral diffuse infiltrative pattern, high index of suspicion for influenza despite negative test 1 Community-acquired C. difficile colitis White blood cells and stool was negative No antecedent history of antibiotic she used to potentiate C. difficile colitis Will recheck C. difficile DNA probe to ensure there is no lab error Continue oral vancomycin in the interim Elevated procalcitonin Not greater than 2 concerned for cardiogenic process on top of right upper lobe pneumonia with likely cor pulmonale Endocrine Blood sugars within acceptable range CODE STATUS: Full code Patient was unable to make medical decisions for her she would want her eldest daughter Malgorzata Pagan phone #[phone] as primary decision maker, also comfortable with her other daughter being a decision maker. Patient has been consented to blood transfusions, elective endotracheal intubation, central venous access, his arterial line, bronchoscopy in event any of these procedures or blood transfusion is required. I have personally spent 85 minutes of critical care time in the direct management of this patient. This is a life/limb threatening event. This includes time spent evaluating patient, direct bedside care, chart review, placing orders, interpretation of diagnostic studies, discussion with consultants, patient, and family members, as well as other required patient management activities. This time is exclusive of all separately billable procedures, and teaching time and separate from and in addition to any other critical care service time.
[2016-10-16] MEDS ORDERED: HEPARIN IV BOLUS 2,000 UNIT in SYRINGE 0 ML IV STA (01:36)
[2016-10-16] MEDS: HEPARIN 25,000 UNIT/500ML D5W 500 ML IV PRN (01:38)
[2016-10-16] MEDS: MAGNESIUM SULFATE 1GM / D5W 1 GM in PREMIXED IN D5W 100 ML IV SCH ×4 (01:41→10:48)
[2016-10-16] MEDS ORDERED: NURSING VERBAL MED ORDER ONE ×3 (01:45→18:45)
[2016-10-16 03:41] LABS: INFLUENZA A PCR Neg for Influ A (NEG); INFLUENZA B PCR Neg for Influ B (NEG)
[2016-10-16] MEDS: PIPERACILL/TAZOBAC IV 3.375 GM in DEXTROSE 5% 100ML IV SCH ×3 (04:11→19:30)
--- NOTE | 2016-10-16 07:07 | DIAGNOSTIC IMAGING REPORT ---
ULTRASOUND BILATERAL LOWER EXTREMITY VENOUS CLINICAL HISTORY: Hypoxia. COMPARISON STUDY: No priors. TECHNIQUE: Real-time, grayscale, and color Doppler sonography of the deep veins of the right and left lower extremity was performed from the inguinal crease to the calf. Compression and augmentation were utilized. FINDINGS: There is no sonographic evidence of deep venous thrombosis identified in the right or left lower extremity. The common femoral, superficial femoral, and popliteal veins are patent and normally compressible bilaterally. The greater saphenous vein and the profunda femoris vein at the junction with the common femoral vein are clear in both legs. The visualized calf veins are patent bilaterally. IMPRESSION: There is no sonographic evidence of deep venous thrombosis identified in the right or left lower extremity. Electronically signed by: Jaime Nathan M.D. 10/16/2016 7:06 AM Dictated Date/Time: 10/16/2016 7:05 AM
[2016-10-16] MEDS ORDERED: FUROSEMIDE 40 MG/4 ML VIAL ONE (07:24)
--- NOTE | 2016-10-16 07:52 | DIAGNOSTIC IMAGING REPORT ---
SINGLE VIEW CHEST CLINICAL HISTORY: Pneumonia. FINDINGS: An AP, portable, upright chest radiograph is compared to study dated 10/15/2016. The cardiomediastinal silhouette is unremarkable. There is atherosclerotic calcification of the thoracic aorta. Advanced emphysema and chronic interstitial thickening are again noted. There is patchy airspace consolidation throughout the right lung and at the left lung base typical in appearance for pneumonia. No large pleural effusion or pneumothorax is seen. Apical scarring is observed. The skeletal structures are osteopenic. The bony thorax is grossly intact. IMPRESSION: 1. Multifocal patchy airspace consolidation is similar to previous and typical for multifocal pneumonia. Radiographic follow-up to resolution is recommended. 2. Advanced emphysema is again noted. Electronically signed by: Jaime Nathan M.D. 10/16/2016 7:50 AM Dictated Date/Time: 10/16/2016 7:48 AM
--- NOTE | 2016-10-16 07:53 | DIAGNOSTIC IMAGING REPORT ---
ABDOMINAL ULTRASOUND COMPLETE HISTORY: Renal insufficiency renal failure, elevated AST. COMPARISON: None. FINDINGS: Pancreas: The pancreas demonstrates a normal echotexture. Liver: Mild hepatomegaly. Trace perihepatic ascites. Gallbladder: Prior cholecystectomy CBD: 8 mm most likely on a postoperative basis Kidneys: No hydronephrosis. Spleen: Mild splenomegaly. Maximum linear dimension 13 cm. Aorta: Normal in caliber. IVC: Patent. IMPRESSION: Mild hepatosplenomegaly. Trace perihepatic and perisplenic ascites. Prior cholecystectomy. Electronically signed by: Allan Taylor M.D. 10/16/2016 7:52 AM Dictated Date/Time: 10/16/2016 7:50 AM
[2016-10-16] MEDS: BOOST PLUS VANILLA PO SCH ×6 (08:11→20:32)
[2016-10-16] MEDS: LACTOBACILLUS ACIDOPHILUS (FLORANEX) TAB PO SCH ×3 (08:12→16:14)
[2016-10-16] MEDS: CALCIUM 600MG + VIT D 400 IU TAB PO SCH ×2 (08:12→20:50)
[2016-10-16 08:18] LABS: BASO % 0.1 %; BASO ABS # 0.01 K/uL (0-0.2); COMPLETE YES; EOS % 0.1 %; HEMATOCRIT 30.1 % (37-47); IG% 0.8 %; LYMPH % 3.6 %; LYMPH ABS # 0.49 K/uL (1.2-3.4); MEAN CELL VOLUME 76.6 fL (80-100); MEAN CORPUSCULAR HGB CONC 35.2 g/dl (32-36); MEAN PLATELET VOLUME 9.2 fL (7.4-10.4); MONO % 3.4 %; PLATELET COUNT 366 K/uL (130-400); RED BLOOD COUNT 3.93 M/uL (4.2-5.4); WHITE BLOOD COUNT 13.68 K/uL (4.8-10.8)
[2016-10-16 08:30] LABS: PARTIAL THROMBOPLASTIN RATIO 1.8
[2016-10-16 08:44] LABS: BUN/CREATININE RATIO 19.5 (10-20); CREATININE 0.82 mg/dl (0.60-1.20); MAGNESIUM 1.8 mg/dl (1.8-2.4); POTASSIUM 2.9 mmol/L (3.5-5.1)
[2016-10-16 08:56] LABS: ALB/GLOB RATIO 0.5 (0.9-2)
[2016-10-16] MEDS: RASPBERRY SYRUP 5 ML UDP PO SCH ×4 (09:00→20:52)
[2016-10-16] MEDS: VANCOMYCIN HCL 125 MG/2.5ML SOLN PO SCH ×4 (09:00→20:52)
--- NOTE | 2016-10-16 09:40 | ECHOCARDIOGRAM REPORT ---
*NOTICE TO RECEIVING REPUBLICAN AGENCY This information is strictly Confidential and protected under [place] law. [place] law prohibits you from making any further disclosure of this information unless further disclosure is expressly permitted by the written consent of the person to whom it pertains or is authorized by law. A general authorization for the release of medical or other information is not sufficient for this purpose. Hospital accepts no responsibility if the information is made available to any other person, INCLUDING THE PATIENT. Interpretation Summary * Name: SHAHID MCKEON Study Date: 10/16/2016 08:24 AM BP: 159/84 mmHg * [facility]\S\1 HR: 96 * : 1945 (M/d/yyyy) Gender: Female Height: 62 in * Age: 71 yrs Ethnicity: [place] Weight: 85 lb * Ordering Physician: Elías Tran * Referring Physician: Self, Referred * Performed By: Maria Antonia Johnson RCS * * Reason For Study: NSTEMI * BSA: 1.3 m2 * -- Conclusions -- * The left ventricle is normal in size. * There is mild concentric left ventricular hypertrophy. * There is mild hypokinesis of the inferior wall and inferior septum with otherwise preserved wall motion. * Left ventricular systolic function is normal. * Ejection Fraction = 55-60%. * Grade I diastolic dysfunction, (abnormal relaxation pattern). * Aortic valve sclerosis moderate, without significant aortic valvular stenosis. * There is trace mitral regurgitation. Procedure Details * A complete two-dimensional transthoracic echocardiogram was performed (2D, M-mode, Doppler and color flow Doppler). Left Ventricle * The left ventricle is normal in size. * There is mild concentric left ventricular hypertrophy. * Left ventricular systolic function is normal. * Ejection Fraction = 55-60%. * There is mild hypokinesis of the inferior wall and inferior septum with otherwise preserved wall motion. Right Ventricle * The right ventricle is normal in size and function. Atria * The left atrial size is normal. * Right atrial size is normal. * No ASD detected; PFO is not assessed. Mitral Valve * The mitral valve anatomy is normal. * There is no mitral valve stenosis. * There is trace mitral regurgitation. Tricuspid Valve * The tricuspid valve anatomy is normal. * There is no tricuspid stenosis. * There is trace tricuspid regurgitation. Aortic Valve * The aortic valve is trileaflet. * Aortic valve sclerosis moderate, without significant aortic valvular stenosis. * No aortic regurgitation is present. Pulmonic Valve * The pulmonic valve is not well visualized. Great Vessels * The aortic root is normal size. Pericardium/Pleural * There is no pericardial effusion. Great Vessels * Normal inferior vena cava diameter and respiratory variation suggests normal central venous pressure. Left Ventricular Diastolic Function * Grade I diastolic dysfunction, (abnormal relaxation pattern). MMode 2D Measurements and Calculations IVSd 1.2 cm IVSs 1.2 cm LVIDd 3.2 cm LVIDs 2.5 cm LVPWd 0.99 cm LVPWs 1.4 cm IVS/LVPW 1.2 FS 22.3 % EDV(Teich) 41.4 ml ESV(Teich) 22.3 ml EF(Teich) 46.2 % EDV(cubed) 33.2 ml ESV(cubed) 15.6 ml EF(cubed) 53.1 % % IVS thick 0.87 % % LVPW thick 38.8 % LV mass(C)d 101.1 grams LV mass(C)dI 76.1 grams/m\S\2 LV mass(C)s 93.9 grams LV mass(C)sI 70.7 grams/m\S\2 SV(Teich) 19.1 ml SI(Teich) 14.4 ml/m\S\2 SV(cubed) 17.6 ml SI(cubed) 13.3 ml/m\S\2 Ao root diam 3.0 cm Ao root area 7.0 cm\S\2 LA dimension 3.2 cm LA/Ao 1.1 LVOT diam 1.9 cm LVOT area 2.7 cm\S\2 LVAd ap4 23.7 cm\S\2 LVLd ap4 6.7 cm EDV(MOD-sp4) 68.8 ml EDV(sp4-el) 71.3 ml LVAs ap4 18.2 cm\S\2 LVLs ap4 6.8 cm ESV(MOD-sp4) 40.0 ml ESV(sp4-el) 40.9 ml EF(MOD-sp4) 41.8 % EF(sp4-el) 42.6 % LVAd ap2 24.1 cm\S\2 LVLd ap2 7.2 cm EDV(MOD-sp2) 67.7 ml EDV(sp2-el) 68.4 ml LVAs ap2 18.1 cm\S\2 LVLs ap2 6.6 cm ESV(MOD-sp2) 42.2 ml ESV(sp2-el) 41.8 ml EF(MOD-sp2) 37.7 % EF(sp2-el) 38.9 % LVLd %diff 7.3 % EDV(MOD-bp) 69.0 ml LVLs %diff -3.01 % ESV(MOD-bp) 41.6 ml EF(MOD-bp) 39.8 % SV(MOD-sp4) 28.7 ml SI(MOD-sp4) 21.6 ml/m\S\2 SV(MOD-sp2) 25.5 ml SI(MOD-sp2) 19.2 ml/m\S\2 SV(MOD-bp) 27.4 ml SI(MOD-bp) 20.6 ml/m\S\2 SV(sp4-el) 30.4 ml SI(sp4-el) 22.9 ml/m\S\2 SV(sp2-el) 26.6 ml SI(sp2-el) 20.0 ml/m\S\2 Doppler Measurements and Calculations MV E max mag 80.9 cm/sec MV A max mag 107.8 cm/sec MV E/A 0.75 MV P1/2t max mag 84.7 cm/sec MV P1/2t 90.7 msec MVA(P1/2t) 2.4 cm\S\2 MV dec slope 273.8 cm/sec\S\2 MV dec time 0.19 sec Ao V2 max 118.9 cm/sec Ao max PG 5.7 mmHg Ao max PG (full) 2.9 mmHg RENE(V,A) 1.9 cm\S\2 RENE(V,D) 1.9 cm\S\2 LV V1 max PG 2.8 mmHg LV V1 max 83.6 cm/sec PA V2 max 109.5 cm/sec PA max PG 4.8 mmHg
[2016-10-16] MEDS: SERTRALINE HCL 50 MG TAB PO SCH (09:45)
[2016-10-16] MEDS: POTASSIUM CHLR 10MEQ / WTR IV SCH ×2 (09:45→10:49)
[2016-10-16] MEDS: POTASSIUM CHLORIDE 20 MEQ TABCR PO SCH (09:46)
[2016-10-16] MEDS: ATORVASTATIN 20 MG TAB PO SCH (09:46)
[2016-10-16] MEDS: FENOFIBRATE 145 MG TAB PO SCH (09:46)
[2016-10-16 10:00] LABS: ISTAT ALLEN TEST Pass; ISTAT ARTERIAL BLOOD GAS HCO3 22 meq/L (19-24); ISTAT ARTERIAL BLOOD GAS PCO2 28 mmHg (35-46); ISTAT ARTERIAL BLOOD GAS PO2 48 mmHg (80-95); ISTAT ARTERIAL BLOOD GAS pH 7.51 (7.35-7.45); ISTAT CARBON DIOXIDE 23 mEq/l (24-31); ISTAT DELIVERY SYSTEM BIPAP; ISTAT FIO2 60 %; ISTAT SITE L Radial
[2016-10-16] MEDS ORDERED: METOPROLOL TARTRATE 25 MG TAB PO SCH (10:00)
--- NOTE | 2016-10-16 10:20 | Critical Care Progress Note ---
Critical Care Progress Note Date of Service Oct 16, 2016. ICU Day ICU Day Number: [address] Tran Subjective 71 y/o F with extensive smoking history and COPD admitted with 4 day history of cough, SOB, diarrhea on 10/14 and treated for RUL pneumonia , hypokalemia, JAMARI and was treated with Levaquin for CAP. She was also found to be have C.diff colitis though she has no recent antibiotic use and was treated with vancomycin PO She was transferred to the ICU with acute worsening resp distress overnight Repeat chest x-ray revealed bilateral alveolar infiltrates, improvement in the right upper lobe pneumonia. Currently on Bipap and answering questions denies any chest pain, shortness of breath or palpitations. complains on being uncomfortable on the BIPAP but denies any shortness of breath or wheezing or cough . denies any N/V/abdominal pain, had no new BM since yesterday Objective GENERAL: Patient is in mild distress , has BIPAP HEENT: No acute trauma, normocephalic atraumatic, mucous membranes moist, no nasal congestion, no scleral icterus. NECK: No stridor, no adenopathy, no meningismus, trachea is midline. LUNGS: Clear to auscultation bilaterally, no wheeze, no rhonchi, breath sounds equal. HEART: Without murmurs gallops or rubs, regular rate and rhythm. ABDOMEN: Soft, nontender, bowel sounds positive, no hernias, no peritonitis. EXTREMITIES: No cyanosis or edema, full range of motion of all the joints without pain or difficulty, no signs for acute trauma. NEUROLOGIC: Oriented x 3, no acute motor or sensory deficits, no focal weakness. SKIN: No rash, no jaundice, no diaphoresis. Assessment & Plan 71 y/o F with extensive smoking history and COPD admitted with 4 day history of cough, SOB, diarrhea on 10/14 and treated for RUL pneumonia , hypokalemia, JAMARI She was transferred to the ICU with acute worsening Resp distress overnight with oxygen saturations dropping to 70s . She was restarted on broad spectrum abx and started on a heparin drip for a possible pneumonia. Neuro: h/o Depression: Continue Zoloft Ativan PRN Resp: Acute hypoxic respiratory failure: on BIPAP currently RUL pneumonia: - CXR 10/16: Multifocal patchy airspace consolidation is similar to previous and typical for multifocal pneumonia. Extensive emphysema. - Influenza PCR X2 negative - BC - no growth so far - Vancomycin, Zosyn, Levaquin Elevated d-dimer - D-dimer at 930 , PE vs Lung pathology - CTA deferred considering recent JAMARI - Echo : mild hypokinesis of the inferior wall and inferior septum with otherwise preserved wall motion. EF 55-60%. - Venous Doppler US: negative - Heparin drip Cardiovascular: - Elevated troponin NSTEMI: EKG: - Trend troponins: 3.9 -->2.2 - Aspirin 325 mg - Metoprolol 12.5 mg BID - Nitro paste - Continue statins [place] [address] - strict Is and Os - Lasix 20 mg GI/FEN: Elevated AST and alkaline phosphatase: - Trending down but continue to monitor - Abdominal US: Mild hepatosplenomegaly. Trace perihepatic and perisplenic ascites. Prior cholecystectomy - Hep C negative DIET: clear liquid Pepcid for GI prophylaxis Renal JAMARI : resolved - Cr at admission at 2--->0.8 today - Is and Os Electrolytes: Hypokalemia: K at 2.9, 10 mEq KCL now with 40 mEq PO recheck BMP later today Hypomagnesemia : Mg at 1.8 - 2 g magnesium ID: Community-acquired pneumonia - Zosyn, vancomycin, Levaquin ( for atypical coverage) - Influenza X 2negative - C. difficile colitis - Stool WBC negative - Negative salmonella - No recent abx use - Recheck C.diff stool ag - PO vancomycin Endocrine - Blood sugar within range DVT prophylaxis: - Heparin Drip for possible PE - SCDs CODE STATUS: Full code Resident Physician Supervision Note: Dr. Audra Goddard was resident physician during care of patient. I separately evaluated patient and did history and exam. I discussed the case with the resident and generally agree with the findings and plan. Patient has worsening P/F ratio, concern for worsening pneumonia versus underlying viral process, influenza negative 2. Her oxygen saturation does improve with a CPAP of 13 and 60% FiO2, difficulty being we do not have humidification system for our noninvasive ventilators. The patient is on high flow nasal cannula patient sats in the mid 80s, point we will attempt to utilize CPAP primarily with intermittent episodes of high flow nasal cannula for patient comfort as well as nutrition. Placed arterial line due to frequency of blood gas draws, had extensive discussion with the patient and her family regarding possible endotracheal intubation. Additional confounding factors is a in STEMI, she is on heparin at this time we're adding beta blockers and will add nitrates as long as her blood pressure tolerates. Agree that this is likely demand related, therefore we will attempt to maintain higher saturation greater than 88 and 92 for someone with underlying COPD. I have personally spent 45 minutes of critical care time in the direct management of this patient. This is a life/limb threatening event. This includes time spent evaluating patient, direct bedside care, chart review, placing orders, interpretation of diagnostic studies, discussion with consultants, patient, and family members, as well as other required patient management activities. This time is exclusive of all separately billable procedures, and teaching time and separate from and in addition to any other critical care service time. Documented By: Elías Tran DO Consults & Procedures Consultants: Dr. Coley Data Medications: Current Inpatient Medications Medications (Trade) Dose Ordered Sig/Jarrod Route Start Time Stop Time Status Last Admin Dose Admin Acetaminophen (Tylenol Tab) 650 mg Q4H PRN PO 10/14/16 13:45 11/13/16 13:44 Al Hydrox/Mg Hydrox/Simethicone (Maalox Max Susp) 15 ml Q4H PRN PO 10/14/16 13:45 11/13/16 13:44 Magnesium Hydroxide (Milk Of Magnesia Susp) 30 ml Q12H PRN PO 10/14/16 13:45 11/13/16 13:44 Ondansetron HCl (Zofran Inj) 4 mg Q6H PRN IV 10/14/16 13:45 11/13/16 13:44 Atorvastatin Calcium (Lipitor Tab) 20 mg DAILY PO 10/15/16 09:00 11/14/16 08:59 10/15/16 08:05 20 MG Fenofibrate (Tricor Tab) 145 mg DAILY PO 10/15/16 09:00 11/14/16 08:59 10/15/16 08:05 145 MG Sertraline HCl (Zoloft Tab) 50 mg DAILY PO 10/15/16 09:00 11/14/16 08:59 10/15/16 08:05 50 MG Calcium/Vitamin D (Caltrate Plus Tab) 1 tab BID PO 10/14/16 21:00 11/13/16 20:59 10/16/16 08:12 1 TAB Albuterol/ Ipratropium (Duoneb) 3 ml Q4R PRN INH 10/14/16 15:45 Levofloxacin (Consult) 1 ea UD PRN N/A 10/14/16 16:15 10/20/16 23:59 Potassium Chloride (Klor-Con Tab) 20 meq QAM PO 10/15/16 09:00 11/14/16 08:59 10/15/16 08:05 20 MEQ Vancomycin HCl (Vancomycin Oral Soln) 125 mg QID PO 10/15/16 09:00 11/03/16 23:59 10/15/16 20:57 125 MG Raspberry (Raspberry Syrup 5ml Cup) 5 ml QID PO 10/15/16 09:00 11/03/16 23:59 10/15/16 20:57 5 ML Lactobacillus Acidophilus (Floranex Tab) 4 tab TIDM PO 10/15/16 07:30 11/14/16 07:29 10/16/16 08:12 4 TAB Enteral Nutritional Formula 1 can 1 can TID PO 10/15/16 14:00 11/14/16 13:59 10/15/16 20:57 1 CAN Levofloxacin/Prmx (Levaquin / D5W/ Premixed D5W) 150 ml @ 100 mls/hr Q2D@1200 IV 10/16/16 12:00 10/20/16 23:59 Lorazepam (Ativan Tab) 0.25 mg Q4H PRN PO 10/15/16 23:30 11/14/16 23:29 Vancomycin HCl (Consult) 1 ea UD PRN N/A 10/15/16 23:30 11/14/16 23:29 Piperacillin Sod/ Tazobactam Sod (Consult) 1 ea UD PRN N/A 10/16/16 00:30 11/15/16 00:29 Nitroglycerin (Nitroglycerin 2% Oint) 1 inch Q6H EXT 10/16/16 00:45 11/15/16 00:44 10/16/16 07:32 1 INCH Aspirin 325 mg 325 mg QAM PO 10/17/16 09:00 11/16/16 08:59 Piperacillin Sod/ Tazobactam Sod 3.375 gm/Dextrose 115 ml @ 28.75 mls/ hr Q8H IV 10/16/16 04:00 10/23/16 03:59 10/16/16 04:11 28.75 MLS/HR Heparin Sodium/ Dextrose 500 ml @ 14 mls/hr Q24H PRN IV 10/16/16 01:30 11/15/16 01:29 10/16/16 01:38 14 MLS/HR Vancomycin HCl/ Sodium Chloride (Vancomycin Inj/ Nss 250ml) 265 ml @ 125 mls/hr Q24H IV 10/16/16 16:00 10/21/16 23:59 Metoprolol Tartrate 12.5 mg 12.5 mg BID PO 10/16/16 10:00 11/15/16 09:59 Potassium Chloride 10 meq/ Prmx 100 ml @ 100 mls/hr Q1H IV 10/16/16 09:30 10/16/16 11:29 Magnesium Sulfate/ Prmx (Magnesium Sulfate/Premixed D5W) 100 ml @ 100 mls/hr Q1H IV 10/16/16 09:30 10/16/16 11:29 Famotidine (Pepcid Tab) 20 mg BID PO 10/16/16 21:00 11/15/16 20:59 I & O: 24-Hour Column 10/16/16 07:59 Intake Total 1953 ml Output Total 2050 ml Balance -97 ml Vital Signs: Date Time Temp Pulse Resp B/P Pulse Ox O2 Delivery O2 Flow Rate FiO2 10/16/16 09:05 100 89 60 10/16/16 06:00 102 28 159/84 81 BiPAP 50 10/16/16 05:00 92 28 154/89 91 BiPAP 60 10/16/16 04:00 BiPAP 60 Venturi Mask 10/16/16 04:00 36.5 85 24 117/68 93 BiPAP 60 10/16/16 03:00 86 26 136/73 89 BiPAP 50 10/16/16 02:00 78 27 151/81 92 BiPAP 50 10/16/16 01:30 84 22 139/73 91 BiPAP 50 10/16/16 01:27 84 91 50 10/16/16 01:15 96 179/85 10/16/16 01:00 98 27 179/85 85 Venturi Mask 50 10/16/16 00:30 97 28 163/85 84 Nasal Cannula 6.0 10/16/16 00:00 36.4 99 32 180/82 75 Nasal Cannula 6.0 10/16/16 00:00 Venturi Mask 50 10/15/16 23:50 99 25 167/82 85 Nasal Cannula 6.0 10/15/16 23:30 100 26 179/85 83 Nasal Cannula 6.0 10/15/16 23:28 36.7 101 24 84 6.0 10/15/16 22:40 100 20 85 BiPAP/CPAP 6.0 10/15/16 21:57 36.7 101 24 200/85 84 Nasal Cannula 6.0 10/15/16 20:00 75 Nasal Cannula 5.0 10/15/16 15:50 Nasal Cannula 5.0 10/15/16 15:20 36.4 100 18 158/72 89 Nasal Cannula 5.0 10/15/16 14:51 36.4 109 20 90 5.0 10/15/16 14:43 109 90 10/15/16 12:00 Nasal Cannula 5.0 10/15/16 11:18 36.4 90 20 152/77 84 2.0 Laboratory Results: Last 24 Hours Test 10/15/16 22:42 10/15/16 23:45 10/16/16 00:00 10/16/16 02:00 Arterial Blood pH 7.48 Arterial Blood Partial Pressure CO2 27 mmHg Arterial Blood Partial Pressure O2 65 mm/Hg Arterial Blood HCO3 20 mmol/L Arterial Blood Oxygen Saturation 87.2 % Arterial Blood Base Excess -3.1 mEq/L Arterial Blood Gas Delivery 6 L Remi Test POS White Blood Count 16.71 K/uL Red Blood Count 4.12 M/uL Hemoglobin 11.3 g/dL Hematocrit 31.4 % Mean Corpuscular Volume 76.2 fL Mean Corpuscular Hemoglobin 27.4 pg Mean Corpuscular Hemoglobin Concent 36.0 g/dl Platelet Count 370 K/uL Mean Platelet Volume 9.0 fL Neutrophils (%) (Auto) 90.3 % Lymphocytes (%) (Auto) 3.6 % Monocytes (%) (Auto) 3.4 % Eosinophils (%) (Auto) 0.1 % Basophils (%) (Auto) 0.1 % Neutrophils # (Auto) 15.10 K/uL Lymphocytes # (Auto) 0.60 K/uL Monocytes # (Auto) 0.57 K/uL Eosinophils # (Auto) 0.02 K/uL Basophils # (Auto) 0.01 K/uL RDW Standard Deviation 42.2 fL RDW Coefficient of Variation 15.0 % Immature Granulocyte % (Auto) 2.5 % Immature Granulocyte # (Auto) 0.41 K/uL Prothrombin Time 16.0 SECONDS Prothromb Time International Ratio 1.5 Activated Partial Thromboplast Time 43.0 SECONDS Partial Thromboplastin Ratio 1.7 Sodium Level 138 mmol/L Potassium Level 3.4 mmol/L Chloride Level 103 mmol/L Carbon Dioxide Level 23 mmol/L Anion Gap 12.0 mmol/L Blood Urea Nitrogen 20 mg/dl Creatinine 0.79 mg/dl Est Creatinine Clear Calc Drug Dose 41.4 ml/min Estimated GFR () 88.5 Estimated GFR (Non- 76.4 BUN/Creatinine Ratio 25.9 Random Glucose 130 mg/dl Calcium Level 10.0 mg/dl Magnesium Level 1.6 mg/dl Total Bilirubin 0.5 mg/dl Aspartate Amino Transf (AST/SGOT) 55 U/L Alanine Aminotransferase (ALT/SGPT) 46 U/L Alkaline Phosphatase 225 U/L Total Creatine Kinase 126 U/L Creatine Kinase MB 18.8 ng/ml Creatine Kinase MB Ratio 14.9 Troponin I 3.900 ng/ml Pro-B-Type Natriuretic Peptide 41768 pg/ml Total Protein 7.2 gm/dl Albumin 2.6 gm/dl Globulin 4.6 gm/dl Albumin/Globulin Ratio 0.6 Procalcitonin 1.82 ng/mL Influenza Type A (RT-PCR) Neg for Influ A Influenza Type B (RT-PCR) Neg for Influ B Test 10/16/16 05:59 10/16/16 07:45 Bedside Glucose 134 mg/dl White Blood Count 13.68 K/uL Red Blood Count 3.93 M/uL Hemoglobin 10.6 g/dL Hematocrit 30.1 % Mean Corpuscular Volume 76.6 fL Mean Corpuscular Hemoglobin 27.0 pg Mean Corpuscular Hemoglobin Concent 35.2 g/dl Platelet Count 366 K/uL Mean Platelet Volume 9.2 fL Neutrophils (%) (Auto) 92.0 % Lymphocytes (%) (Auto) 3.6 % Monocytes (%) (Auto) 3.4 % Eosinophils (%) (Auto) 0.1 % Basophils (%) (Auto) 0.1 % Neutrophils # (Auto) 12.59 K/uL Lymphocytes # (Auto) 0.49 K/uL Monocytes # (Auto) 0.46 K/uL Eosinophils # (Auto) 0.02 K/uL Basophils # (Auto) 0.01 K/uL RDW Standard Deviation 42.5 fL RDW Coefficient of Variation 15.0 % Immature Granulocyte % (Auto) 0.8 % Immature Granulocyte # (Auto) 0.11 K/uL Activated Partial Thromboplast Time 47.1 SECONDS Partial Thromboplastin Ratio 1.8 Sodium Level 134 mmol/L Potassium Level 2.9 mmol/L Chloride Level 99 mmol/L Carbon Dioxide Level 23 mmol/L Anion Gap 12.0 mmol/L Blood Urea Nitrogen 16 mg/dl Creatinine 0.82 mg/dl Est Creatinine Clear Calc Drug Dose 41.3 ml/min Estimated GFR () 84.6 Estimated GFR (Non- 73.0 BUN/Creatinine Ratio 19.5 Random Glucose 126 mg/dl Calcium Level 10.0 mg/dl Magnesium Level 1.8 mg/dl Total Bilirubin 0.4 mg/dl Aspartate Amino Transf (AST/SGOT) 49 U/L Alanine Aminotransferase (ALT/SGPT) 37 U/L Alkaline Phosphatase 208 U/L Troponin I 2.250 ng/ml Total Protein 6.7 gm/dl Albumin 2.3 gm/dl Globulin 4.4 gm/dl Albumin/Globulin Ratio 0.5
[2016-10-16] MEDS ORDERED: PANTOprazole INJ 40 MG in SYRINGE 0 ML IV SCH (11:00)
[2016-10-16] MEDS ORDERED: PANTOprazole SOD 40 MG TAB PO SCH (11:00)
--- NOTE | 2016-10-16 11:01 | Procedure Note ---
Procedure Note Procedure Date Oct 16, 2016. (Martine Watts PA-C) Procedure Description Procedure Name: Right Radial Arterial Catheter Insertion Procedure time out: side/site verified, patient ID confirmed, correct procedure Consent obtained: written Time of procedure: 10:35 Performed by: physician claims administrator Indications: diagnostic, therapeutic Contraindications: none Description: Using sterile technique; the right radial artery was cleaned with a chloro- hexadine scrub after adequate palpation, a finder needle with overlaying catheter was then used with approach at a 45* angle without success due to movement of the vasculature under the epidermis. At which point, the ultrasound machine was used and with visualization, the finder needle with overlaying catheter was then again used with approach at a 45* angle until a flash was obtained with direct visualization on ultrasound. Using Seldinger technique, there was initially no difficulty passing the guide wire, on the 1st attempt the guide wire was then passed successfully into the artery and the catheter was threaded over the guide wire; which was then removed. Arterial blood was seen pulsating from catheter tip and a luer lock valve was attached to the catheter. The A-line catheter was then secured with one stat-lock and covered with a sterile surgical dressing. Pt was reassessed and no evidence of hematoma was appreciated. The tubing was placed between the first and second fingers and taped to the forearm. Pt tolerated the procedure well with no complications. Consent was obtained by Dr. Elías Tran (Martine Watts PA-C) Comments: I was physically present during the entire procedure. (Elías Tran, D.O.)
--- NOTE | 2016-10-16 11:23 | Pharmacy Progress Note ---
Pharmacy Antibiotic Consult Date of Service: Oct 16, 2016. Pharmacy Dosing Scope Pharmacy is consulted to initiate vancomycin, piperacillin/tazobactam and levofloxacin IV dosing therapy, order appropriate labs and adjust drug dose/ frequency. Subjective The patient is a 71 year old female admitted on Oct 14, 2016 at 15:19 Objective Height (Feet): 5 Height (Inches): 2.00 Weight (Kilograms): 40.400 Lab Results (24hrs): Laboratory Tests Test 10/15/16 23:45 10/16/16 07:45 BUN/Creatinine Ratio 25.9 19.5 Blood Urea Nitrogen 20 mg/dl 16 mg/dl Creatinine 0.79 mg/dl 0.82 mg/dl White Blood Count 16.71 K/uL 13.68 K/uL Red Blood Count 4.12 M/uL 3.93 M/uL Hemoglobin 11.3 g/dL 10.6 g/dL Hematocrit 31.4 % 30.1 % Mean Corpuscular Volume 76.2 fL 76.6 fL Mean Corpuscular Hemoglobin 27.4 pg 27.0 pg Mean Corpuscular Hemoglobin Concent 36.0 g/dl 35.2 g/dl Platelet Count 370 K/uL 366 K/uL Mean Platelet Volume 9.0 fL 9.2 fL Neutrophils (%) (Auto) 90.3 % 92.0 % Lymphocytes (%) (Auto) 3.6 % 3.6 % Monocytes (%) (Auto) 3.4 % 3.4 % Eosinophils (%) (Auto) 0.1 % 0.1 % Basophils (%) (Auto) 0.1 % 0.1 % Neutrophils # (Auto) 15.10 K/uL 12.59 K/uL Lymphocytes # (Auto) 0.60 K/uL 0.49 K/uL Monocytes # (Auto) 0.57 K/uL 0.46 K/uL Eosinophils # (Auto) 0.02 K/uL 0.02 K/uL Basophils # (Auto) 0.01 K/uL 0.01 K/uL Micro Results: Item Value Date Time Blood Culture - Preliminary Resulted 10/14/16 1600 Blood NO GROWTH TO DATE. Blood Culture - Preliminary Resulted 10/14/16 1607 Blood NO GROWTH TO DATE. C.difficile Toxin B Gene (PCR) - Final Complete 10/15/16 0244 Stool Positive for C. difficile toxin B gene WBC Smear - Final Complete 10/15/16 0244 Stool Shiga Toxin Test - Preliminary Resulted 10/15/16 0244 Stool MRSA DNA Surveillance Screen - Final Complete 10/15/16 2320 Nasal Specimen Negative for MRSA by DNA Probe Item Value Date Time Influenza Type B (RT-PCR) Neg for Influ B 10/16/16 0200 Influenza Type A (RT-PCR) Neg for Influ A 10/16/16 0200 Influenza Type B (RT-PCR) Neg for Influ B 10/14/16 1134 Influenza Type A (RT-PCR) Neg for Influ A 10/14/16 1134 Recent Pertinent Medications Item Value Date Time Vancomycin HCl 125 mg 10/15/16 0900 (Vancomycin Oral QID/PO 10/16/16 0900 Soln) CONTINUES Oseltamivir 75 mg 10/14/16 1300 Phosphate ONE ONCE/PO 10/14/16 1300 (Tamiflu Cap) ONE TIME DOSE Ceftriaxone Sodium 1 gm 10/14/16 1257 (Rocephin Inj) NOW STAT/IV ONE TIME DOSE 10/14/16 1257 Assessment & Plan Assessment: * 71 y/o with history of COPD brought to ICU after worsening respiratory distress overnight * Currently, she is being treated for RUL CA-Pneumonia and CA-C. difficile * Influenza PCR negative x2 * MRSA swab negative Plan: * Continue broad-spectrum antibiotics at this time Vancomycin: * Loading dose: 1000 mg IV X 1 dose * Maintenance dose: 750 mg IV every 24 hours * Estimated kinetics: T1/2 ~ 18 hours * Goal trough: 15-20mcg/mL for pulmonary source * Duration: TBD *may consider de-escalation of Vancomycin since MRSA swab is negative Piperacillin/tazobactam: * Loading dose: 3.375 grams IV x1 dose (over 30 minutes) * Maintenance dose: 3.375 grams IV every 8 hours (over 4 hours) * chose to not increase dose despite patient being in ICU as her body weight is quite low and she likely does not require higher dosing. If she further decompensates, may consider increase. * Duration: TBD Levofloxacin: * Target dose: 750mg IV/PO q24h * Dose adj: 750mg IV/PO q48h for CrCl 20-49mL/min * Duration: 7 days *may consider oral therapy if patient tolerating PO therapy Continue vancomycin PO for C. difficile (not a pharmacy consult) * repeat C. difficile antigen ordered * Duration: TBD * if repeat Ag test positive, will receive 14 days of therapy from the last day of ABX (per ICU rounds) Pharmacy will continue to follow and will adjust dose/frequency as necessary. Thank you
[2016-10-16 11:26] LABS: FERRITIN 231.1 ng/ml (8.0-388.0)
[2016-10-16 11:32] LABS: ISTAT ARTERIAL BLOOD GAS HCO3 22 meq/L (19-24); ISTAT ARTERIAL BLOOD GAS PCO2 31 mmHg (35-46); ISTAT ARTERIAL BLOOD GAS PO2 65 mmHg (80-95); ISTAT ARTERIAL BLOOD GAS pH 7.46 (7.35-7.45); ISTAT CARBON DIOXIDE 23 mEq/l (24-31); ISTAT DELIVERY SYSTEM BIPAP; ISTAT FIO2 60 %; ISTAT RATE 30; ISTAT SITE Art Line
[2016-10-16] MEDS ORDERED: LEVOFLOXACIN / D5W 500 MG in PREMIXED IN D5W 100 ML IV SCH (12:00)
[2016-10-16] MEDS: LEVOFLOXACIN / D5W 750 MG in PREMIXED IN D5W 150 ML IV SCH (13:02)
[2016-10-16] MEDS: ACETAMINOPHEN 325 MG TAB PO PRN (13:41)
[2016-10-16 15:10] LABS: ISTAT ARTERIAL BLOOD GAS HCO3 22 meq/L (19-24); ISTAT ARTERIAL BLOOD GAS PCO2 25 mmHg (35-46); ISTAT ARTERIAL BLOOD GAS PO2 61 mmHg (80-95); ISTAT ARTERIAL BLOOD GAS pH 7.56 (7.35-7.45); ISTAT CARBON DIOXIDE 23 mEq/l (24-31); ISTAT DELIVERY SYSTEM Cannula; ISTAT SITE Art Line
--- NOTE | 2016-10-16 15:21 | Progress Note ---
Internal Med Progress Note Date of Service: Oct 16, 2016. Provider Documentation: SUBJECTIVE: Patient is alert/awake & is sitting in her bed in respiratory distress with CPAP on. Noted all the overnight events. Her O2 Sat still running in 80's most of time. Denies any chest pain/pressure. OBJECTIVE: Vital Signs-as noted below Examination: General Appearance: Alert/Awake in no apparent distress, + thin Head: normocephalic, atraumatic Eyes: normal inspection ENT: Hearing is normal.Ears, Nose & Throat are normal looking. Neck: Supple, Midline trachea, No JVD. Respiratory/Chest: B/L Moderate air entry. Scattered rales present B/L More on R >L. Cardiovascular: regular rate, rhythm, Normal S1,S2. Abdomen/GI: non tender, soft Extremities/Musculoskeletal: normal capillary refill, no pedal edema, normal range of motion Neurologic/Psych: no motor/sensory deficits, alert, normal mood/affect, oriented x 2 Skin: normal color, warm/dry, no rash Lymphatic: no adenopathy Lab data as noted below. ASSESSMENT & PLAN: Echocardiogram The left ventricle is normal in size. There is mild concentric left ventricular hypertrophy. There is mild hypokinesis of the inferior wall and inferior septum with otherwise preserved wall motion. Left ventricular systolic function is normal. Ejection Fraction = 55-60%. Grade I diastolic dysfunction, (abnormal relaxation pattern). Aortic valve sclerosis moderate, without significant aortic valvular stenosis. There is trace mitral regurgitation. Chest X-Ray SINGLE VIEW CHEST CLINICAL HISTORY: Pneumonia. FINDINGS: An AP, portable, upright chest radiograph is compared to study date. The cardiomediastinal silhouette is unremarkable. There is atherosclerotic calcification of the thoracic aorta. Advanced emphysema and chronic interstitial thickening are again noted. There is patchy airspace consolidation throughout the right lung and at the left lung base typical in appearance for pneumonia. No large pleural effusion or pneumothorax is seen. Apical scarring is observed. The skeletal structures are osteopenic. The bony thorax is grossly intact. IMPRESSION: 1. Multifocal patchy airspace consolidation is similar to previous and typical for multifocal pneumonia. Radiographic follow-up to resolution is recommended. 2. Advanced emphysema is again noted. Right Upper Lobe Pneumonia: Presents with non productive cough with3-4 days of fever , not feeling well , poor appetite Chest X-Ray shows RUL pneumonia. Patient is a chronic heavy smoker -did not had formal diagnosis of COPD. Clinically worsening. -Changed Levaquin (Day # 2) to vancomycin (day # 1) & Zosyn (Day # 1). -Cultures are negative so far -Flu screen is negative -DVT Study is negative as had elevated D-dimer. -Reviewed repeat Chest X-Ray in AM shows worsening of Pneumonia -Patient is counselled for smoking cessation -Using CPAP and High flow to maintain oxygenation C, Diff Colitis: Continue PO Vancomycin(Day # 2)and Lactobacillus. -Nausea/Vomiting has resolved -Diarrhea is resolving. Elevated Troponin: Likely due to demand ischemia. -Troponin trend is as : <0.15 --> 3.9 --> 2.2.5 -- > 1.72. -Continue I/V Heparin -Reviewed Echo findings. -Noted Cardiology input. Thanks Electrolyte Abnormalities: Resolving.Following closely. -Will replace as needed. Acute Kidney Injury: Due to volume depletion. Gradually improving. -Off IVF -Avoid any Nephrotoxin. Hyperlipidemia: Continue Statin. History Anxiety/Depression: Stable. Continue Zoloft. -Ativan as needed. Code Status: FULL CODE DVT Prophylaxis: SCDs. Disposition: : Expected to return to home when medically stable. Ordered PT. Medicine follow up with Dr Fontaine at [facility] Vital Signs: Date Time Temp Pulse Resp B/P Pulse Ox O2 Delivery O2 Flow Rate FiO2 10/16/16 14:00 36.9 91 20 117/77 90 CPAP 70 10/16/16 12:30 91 22 145/86 89 CPAP 60 10/16/16 12:30 CPAP 50 10/16/16 11:31 99 90 60 10/16/16 10:00 96 28 146/87 96 CPAP 60 10/16/16 09:05 100 89 60 10/16/16 08:00 CPAP 60 10/16/16 08:00 97 28 141/79 90 BiPAP 60 10/16/16 08:00 BiPAP 60 10/16/16 06:00 102 28 159/84 81 BiPAP 50 10/16/16 05:00 92 28 154/89 91 BiPAP 60 10/16/16 04:00 BiPAP 60 Venturi Mask 10/16/16 04:00 36.5 85 24 117/68 93 BiPAP 60 10/16/16 03:00 86 26 136/73 89 BiPAP 50 10/16/16 02:00 78 27 151/81 92 BiPAP 50 10/16/16 01:30 84 22 139/73 91 BiPAP 50 10/16/16 01:27 84 91 50 10/16/16 01:15 96 179/85 10/16/16 01:00 98 27 179/85 85 Venturi Mask 50 10/16/16 00:30 97 28 163/85 84 Nasal Cannula 6.0 10/16/16 00:00 36.4 99 32 180/82 75 Nasal Cannula 6.0 10/16/16 00:00 Venturi Mask 50 10/15/16 23:50 99 25 167/82 85 Nasal Cannula 6.0 10/15/16 23:30 100 26 179/85 83 Nasal Cannula 6.0 10/15/16 23:28 36.7 101 24 84 6.0 10/15/16 22:40 100 20 85 BiPAP/CPAP 6.0 10/15/16 21:57 36.7 101 24 200/85 84 Nasal Cannula 6.0 10/15/16 20:00 75 Nasal Cannula 5.0 10/15/16 15:50 Nasal Cannula 5.0 Lab Results: Results Past 24 Hours Test 10/15/16 22:42 10/15/16 23:45 10/16/16 00:00 10/16/16 02:00 Range/Units Arterial Blood pH 7.48 7.35-7.45 Arterial Blood Partial Pressure CO2 27 35-46 mmHg Arterial Blood Partial Pressure O2 65 80-95 mm/Hg Arterial Blood HCO3 20 19-24 mmol/L Arterial Blood Oxygen Saturation 87.2 90-95 % Arterial Blood Base Excess -3.1 -9-1.8 mEq/L Arterial Blood Gas Delivery 6 L Remi Test POS POS White Blood Count 16.71 4.8-10.8 K/uL Red Blood Count 4.12 4.2-5.4 M/uL Hemoglobin 11.3 12.0-16.0 g/dL Hematocrit 31.4 37-47 % Mean Corpuscular Volume 76.2 80-100 fL Mean Corpuscular Hemoglobin 27.4 25-34 pg Mean Corpuscular Hemoglobin Concent 36.0 32-36 g/dl Platelet Count 370 130-400 K/uL Mean Platelet Volume 9.0 7.4-10.4 fL Neutrophils (%) (Auto) 90.3 % Lymphocytes (%) (Auto) 3.6 % Monocytes (%) (Auto) 3.4 % Eosinophils (%) (Auto) 0.1 % Basophils (%) (Auto) 0.1 % Neutrophils # (Auto) 15.10 1.4-6.5 K/uL Lymphocytes # (Auto) 0.60 1.2-3.4 K/uL Monocytes # (Auto) 0.57 0.11-0.59 K/uL Eosinophils # (Auto) 0.02 0-0.5 K/uL Basophils # (Auto) 0.01 0-0.2 K/uL RDW Standard Deviation 42.2 36.4-46.3 fL RDW Coefficient of Variation 15.0 11.5-14.5 % Immature Granulocyte % (Auto) 2.5 % Immature Granulocyte # (Auto) 0.41 0.00-0.02 K/uL Prothrombin Time 16.0 9.0-12.0 SECONDS Prothromb Time International Ratio 1.5 0.9-1.1 Activated Partial Thromboplast Time 43.0 21.0-31.0 SECONDS Partial Thromboplastin Ratio 1.7 Sodium Level 138 136-145 mmol/L Potassium Level 3.4 3.5-5.1 mmol/L Chloride Level 103 98-107 mmol/L Carbon Dioxide Level 23 21-32 mmol/L Anion Gap 12.0 3-11 mmol/L Blood Urea Nitrogen 20 7-18 mg/dl Creatinine 0.79 0.60-1.20 mg/dl Est Creatinine Clear Calc Drug Dose 41.4 ml/min Estimated GFR () 88.5 Estimated GFR (Non- 76.4 BUN/Creatinine Ratio 25.9 10-20 Random Glucose 130 70-99 mg/dl Calcium Level 10.0 8.5-10.1 mg/dl Magnesium Level 1.6 1.8-2.4 mg/dl Total Bilirubin 0.5 0.2-1 mg/dl Aspartate Amino Transf (AST/SGOT) 55 15-37 U/L Alanine Aminotransferase (ALT/SGPT) 46 12-78 U/L Alkaline Phosphatase 225 45-117 U/L Total Creatine Kinase 126 26-192 U/L Creatine Kinase MB 18.8 0.5-3.6 ng/ml Creatine Kinase MB Ratio 14.9 0-3.0 Troponin I 3.900 0-0.045 ng/ml Pro-B-Type Natriuretic Peptide 05389 0-900 pg/ml Total Protein 7.2 6.4-8.2 gm/dl Albumin 2.6 3.4-5.0 gm/dl Globulin 4.6 2.5-4.0 gm/dl Albumin/Globulin Ratio 0.6 0.9-2 Procalcitonin 1.82 0-0.5 ng/mL Influenza Type A (RT-PCR) Neg for Influ A NEG Influenza Type B (RT-PCR) Neg for Influ B NEG Test 10/16/16 05:59 10/16/16 07:45 10/16/16 09:47 10/16/16 11:18 Range/Units Bedside Glucose 134 70-90 mg/dl White Blood Count 13.68 4.8-10.8 K/uL Red Blood Count 3.93 4.2-5.4 M/uL Hemoglobin 10.6 12.0-16.0 g/dL Hematocrit 30.1 37-47 % Mean Corpuscular Volume 76.6 80-100 fL Mean Corpuscular Hemoglobin 27.0 25-34 pg Mean Corpuscular Hemoglobin Concent 35.2 32-36 g/dl Platelet Count 366 130-400 K/uL Mean Platelet Volume 9.2 7.4-10.4 fL Neutrophils (%) (Auto) 92.0 % Lymphocytes (%) (Auto) 3.6 % Monocytes (%) (Auto) 3.4 % Eosinophils (%) (Auto) 0.1 % Basophils (%) (Auto) 0.1 % Neutrophils # (Auto) 12.59 1.4-6.5 K/uL Lymphocytes # (Auto) 0.49 1.2-3.4 K/uL Monocytes # (Auto) 0.46 0.11-0.59 K/uL Eosinophils # (Auto) 0.02 0-0.5 K/uL Basophils # (Auto) 0.01 0-0.2 K/uL RDW Standard Deviation 42.5 36.4-46.3 fL RDW Coefficient of Variation 15.0 11.5-14.5 % Immature Granulocyte % (Auto) 0.8 % Immature Granulocyte # (Auto) 0.11 0.00-0.02 K/uL Activated Partial Thromboplast Time 47.1 21.0-31.0 SECONDS Partial Thromboplastin Ratio 1.8 Sodium Level 134 136-145 mmol/L Potassium Level 2.9 3.5-5.1 mmol/L Chloride Level 99 98-107 mmol/L Carbon Dioxide Level 23 21-32 mmol/L Anion Gap 12.0 3-11 mmol/L Blood Urea Nitrogen 16 7-18 mg/dl Creatinine 0.82 0.60-1.20 mg/dl Est Creatinine Clear Calc Drug Dose 41.3 ml/min Estimated GFR () 84.6 Estimated GFR (Non- 73.0 BUN/Creatinine Ratio 19.5 10-20 Random Glucose 126 70-99 mg/dl Calcium Level 10.0 8.5-10.1 mg/dl Magnesium Level 1.8 1.8-2.4 mg/dl Iron Level 17 35-150 mcg/dl Ferritin 231.1 8.0-388.0 ng/ml Total Bilirubin 0.4 0.2-1 mg/dl Aspartate Amino Transf (AST/SGOT) 49 15-37 U/L Alanine Aminotransferase (ALT/SGPT) 37 12-78 U/L Alkaline Phosphatase 208 45-117 U/L Troponin I 2.250 0-0.045 ng/ml Total Protein 6.7 6.4-8.2 gm/dl Albumin 2.3 3.4-5.0 gm/dl Globulin 4.4 2.5-4.0 gm/dl Albumin/Globulin Ratio 0.5 0.9-2 Blood Gas Sample Site L Radial Art Line Bedside Blood Gas pH (LAB) 7.51 7.46 7.35-7.45 Bedside Blood Gas pCO2 (LAB) 28 31 35-46 mmHg Bedside Blood Gas pO2 (LAB) 48 65 80-95 mmHg Bedside Blood Gas HCO3 (LAB) 22 22 19-24 meq/L Bedside Blood Gas Total CO2 23 23 24-31 mEq/l Bedside Blood Gas Base Excess (LAB) -1.0 -2.0 -9-1.8 meq/L Bedside Blood Gas O2 Saturation 89.0 94.0 90-95 % Remi Test Pass NA Oxygen Delivery Device BIPAP BIPAP Bedside FiO2 60 60 % Bedside Oxygen Rate (breaths/min) 30 Test 10/16/16 12:10 10/16/16 14:56 Range/Units Troponin I 1.750 0-0.045 ng/ml Blood Gas Sample Site Art Line Bedside Blood Gas pH (LAB) 7.56 7.35-7.45 Bedside Blood Gas pCO2 (LAB) 25 35-46 mmHg Bedside Blood Gas pO2 (LAB) 61 80-95 mmHg Bedside Blood Gas HCO3 (LAB) 22 19-24 meq/L Bedside Blood Gas Total CO2 23 24-31 mEq/l Bedside Blood Gas Base Excess (LAB) 0.0 -9-1.8 meq/L Bedside Blood Gas O2 Saturation 95.0 90-95 % Remi Test NA Oxygen Delivery Device Cannula Microbiology Results 10/15/16 MRSA DNA Surveillance Screen - Final, Complete Specimen Negative for MRSA by DNA Probe
--- NOTE | 2016-10-16 15:26 | Gastrointestinal Consultation ---
Gastrointestinal Consultation Date of Consultation: Oct 16, 2016 Attending Physician: Elías Tran Consulting Physician: Doug Caal Reason for Consultation: Hepatosplenomegaly, elevated LFTs History of Present Illness Patient is a 71 year old female w PMHx of depression, anxiety, tobacco abuse, emphysema, who is currently admitted for sepsis, likely secondary to pneumonia, treated w Levaquin and Zosyn. Upon her workup, she was noted to have elevated Troponin >3, BNP >14K, JAMARI w Cr of 2, now normalizing. She was having s/s of nausea, vomiting, diarrhea, + Cdiff but negative stool cx. She is currently on Vancomycin therapy. GI consulted as she was noted to have elevated LFTs: Tbili 0.4, AST 49, ALT 37, Alk phos 208. Her abd u/s showed mild hepatosplenomegaly w trace perihepatic ascites. No other inpt or outpt abd imaging studies to compare. Pt denies any hx of liver diseases or elevated LFTs. She denies any ETOH abuse, + 1 tattoo, no illicit drugs, no family hx of autoimmune diseases. She denies any fever, chills, breathing is improved not as SOB, but still on CPAP. Denies any CP, abd pain, n/v. Her diarrhea is better, last BM last night, no rectal bleeding. She did admit to have 20lbs weight loss 5 yrs ago but stable weight since then. Past Medical/Surgical History Medical Problems: (1) JAMARI (acute kidney injury) Status: Acute (2) COPD (chronic obstructive pulmonary disease) Status: Acute (3) Elevated alkaline phosphatase level Status: Acute (4) Hypoalbuminemia Status: Acute (5) Hypokalemia Status: Acute (6) Hypomagnesemia Status: Acute (7) Hyponatremia Status: Acute (8) Nausea, vomiting, and diarrhea Status: Acute (9) Right upper lobe pneumonia Status: Acute (10) Vomiting Status: Acute Past Medical History: See above. Past Surgical History: Tonsillectomy Appendectomy Cholecystectomy Family History No significant family history Social History Smoking Status: Current Every Day Smoker Alcohol Use: none Drug Use: none Housing Status: lives with family Occupation Status: retired Allergies Coded Allergies: No Known Allergies (Unverified , 12/25/14) Current Medications Home Meds and Scripts Medications Dose Route/Sig Max Daily Dose Days Date Category Tricor (Fenofibrate) 145 Mg Tab 145 Mg PO DAILY 12/25/14 Reported Zoloft (Sertraline Hcl) 50 Mg Tab 50 Mg PO DAILY 12/25/14 Reported Lipitor (Atorvastatin Calcium) 20 Mg Tab 20 Mg PO DAILY 12/25/14 Reported Calcium 600 + D (Calcium Carbonate-Vitamin D) 1 Tab Tab 1 Tab PO BID 12/25/14 Reported Review of Systems Constitutional: No chills, No fever Respiratory: + shortness of breath (improved), No cough Cardiac: No chest pain Abdomen: No nausea, No pain, No vomiting Physical Exam Date Time Temp Pulse Resp B/P Pulse Ox O2 Delivery O2 Flow Rate FiO2 10/16/16 14:00 36.9 91 20 117/77 90 CPAP 70 10/16/16 12:30 91 22 145/86 89 CPAP 60 10/16/16 12:30 CPAP 50 10/16/16 11:31 99 90 60 10/16/16 10:00 96 28 146/87 96 CPAP 60 10/16/16 09:05 100 89 60 10/16/16 08:00 CPAP 60 10/16/16 08:00 97 28 141/79 90 BiPAP 60 10/16/16 08:00 BiPAP 60 10/16/16 06:00 102 28 159/84 81 BiPAP 50 10/16/16 05:00 92 28 154/89 91 BiPAP 60 10/16/16 04:00 BiPAP 60 Venturi Mask 10/16/16 04:00 36.5 85 24 117/68 93 BiPAP 60 10/16/16 03:00 86 26 136/73 89 BiPAP 50 10/16/16 02:00 78 27 151/81 92 BiPAP 50 10/16/16 01:30 84 22 139/73 91 BiPAP 50 10/16/16 01:27 84 91 50 10/16/16 01:15 96 179/85 10/16/16 01:00 98 27 179/85 85 Venturi Mask 50 10/16/16 00:30 97 28 163/85 84 Nasal Cannula 6.0 10/16/16 00:00 36.4 99 32 180/82 75 Nasal Cannula 6.0 10/16/16 00:00 Venturi Mask 50 10/15/16 23:50 99 25 167/82 85 Nasal Cannula 6.0 10/15/16 23:30 100 26 179/85 83 Nasal Cannula 6.0 10/15/16 23:28 36.7 101 24 84 6.0 10/15/16 22:40 100 20 85 BiPAP/CPAP 6.0 10/15/16 21:57 36.7 101 24 200/85 84 Nasal Cannula 6.0 10/15/16 20:00 75 Nasal Cannula 5.0 10/15/16 15:50 Nasal Cannula 5.0 10/15/16 15:20 36.4 100 18 158/72 89 Nasal Cannula 5.0 General Appearance: + thin Eyes: normal inspection, PERRL, EOMI Neck: supple, no JVD, trachea midline Respiratory/Chest: no respiratory distress, no accessory muscle use, + decreased breath sounds Cardiovascular: regular rate, rhythm, no gallop, no murmur Abdomen: normal bowel sounds, non tender, soft Extremities: normal inspection, no pedal edema, no calf tenderness Neurologic/Psych: alert, normal mood/affect, oriented x 3 Skin: normal color, no jaundice, no rash Laboratory Results Last 24 Hours Test 10/15/16 22:42 10/15/16 23:45 10/16/16 00:00 10/16/16 02:00 Arterial Blood pH 7.48 Arterial Blood Partial Pressure CO2 27 mmHg Arterial Blood Partial Pressure O2 65 mm/Hg Arterial Blood HCO3 20 mmol/L Arterial Blood Oxygen Saturation 87.2 % Arterial Blood Base Excess -3.1 mEq/L Arterial Blood Gas Delivery 6 L Remi Test POS White Blood Count 16.71 K/uL Red Blood Count 4.12 M/uL Hemoglobin 11.3 g/dL Hematocrit 31.4 % Mean Corpuscular Volume 76.2 fL Mean Corpuscular Hemoglobin 27.4 pg Mean Corpuscular Hemoglobin Concent 36.0 g/dl Platelet Count 370 K/uL Mean Platelet Volume 9.0 fL Neutrophils (%) (Auto) 90.3 % Lymphocytes (%) (Auto) 3.6 % Monocytes (%) (Auto) 3.4 % Eosinophils (%) (Auto) 0.1 % Basophils (%) (Auto) 0.1 % Neutrophils # (Auto) 15.10 K/uL Lymphocytes # (Auto) 0.60 K/uL Monocytes # (Auto) 0.57 K/uL Eosinophils # (Auto) 0.02 K/uL Basophils # (Auto) 0.01 K/uL RDW Standard Deviation 42.2 fL RDW Coefficient of Variation 15.0 % Immature Granulocyte % (Auto) 2.5 % Immature Granulocyte # (Auto) 0.41 K/uL Prothrombin Time 16.0 SECONDS Prothromb Time International Ratio 1.5 Activated Partial Thromboplast Time 43.0 SECONDS Partial Thromboplastin Ratio 1.7 Sodium Level 138 mmol/L Potassium Level 3.4 mmol/L Chloride Level 103 mmol/L Carbon Dioxide Level 23 mmol/L Anion Gap 12.0 mmol/L Blood Urea Nitrogen 20 mg/dl Creatinine 0.79 mg/dl Est Creatinine Clear Calc Drug Dose 41.4 ml/min Estimated GFR () 88.5 Estimated GFR (Non- 76.4 BUN/Creatinine Ratio 25.9 Random Glucose 130 mg/dl Calcium Level 10.0 mg/dl Magnesium Level 1.6 mg/dl Total Bilirubin 0.5 mg/dl Aspartate Amino Transf (AST/SGOT) 55 U/L Alanine Aminotransferase (ALT/SGPT) 46 U/L Alkaline Phosphatase 225 U/L Total Creatine Kinase 126 U/L Creatine Kinase MB 18.8 ng/ml Creatine Kinase MB Ratio 14.9 Troponin I 3.900 ng/ml Pro-B-Type Natriuretic Peptide 89928 pg/ml Total Protein 7.2 gm/dl Albumin 2.6 gm/dl Globulin 4.6 gm/dl Albumin/Globulin Ratio 0.6 Procalcitonin 1.82 ng/mL Influenza Type A (RT-PCR) Neg for Influ A Influenza Type B (RT-PCR) Neg for Influ B Test 10/16/16 05:59 10/16/16 07:45 10/16/16 09:47 10/16/16 11:18 Bedside Glucose 134 mg/dl White Blood Count 13.68 K/uL Red Blood Count 3.93 M/uL Hemoglobin 10.6 g/dL Hematocrit 30.1 % Mean Corpuscular Volume 76.6 fL Mean Corpuscular Hemoglobin 27.0 pg Mean Corpuscular Hemoglobin Concent 35.2 g/dl Platelet Count 366 K/uL Mean Platelet Volume 9.2 fL Neutrophils (%) (Auto) 92.0 % Lymphocytes (%) (Auto) 3.6 % Monocytes (%) (Auto) 3.4 % Eosinophils (%) (Auto) 0.1 % Basophils (%) (Auto) 0.1 % Neutrophils # (Auto) 12.59 K/uL Lymphocytes # (Auto) 0.49 K/uL Monocytes # (Auto) 0.46 K/uL Eosinophils # (Auto) 0.02 K/uL Basophils # (Auto) 0.01 K/uL RDW Standard Deviation 42.5 fL RDW Coefficient of Variation 15.0 % Immature Granulocyte % (Auto) 0.8 % Immature Granulocyte # (Auto) 0.11 K/uL Activated Partial Thromboplast Time 47.1 SECONDS Partial Thromboplastin Ratio 1.8 Sodium Level 134 mmol/L Potassium Level 2.9 mmol/L Chloride Level 99 mmol/L Carbon Dioxide Level 23 mmol/L Anion Gap 12.0 mmol/L Blood Urea Nitrogen 16 mg/dl Creatinine 0.82 mg/dl Est Creatinine Clear Calc Drug Dose 41.3 ml/min Estimated GFR () 84.6 Estimated GFR (Non- 73.0 BUN/Creatinine Ratio 19.5 Random Glucose 126 mg/dl Calcium Level 10.0 mg/dl Magnesium Level 1.8 mg/dl Iron Level 17 mcg/dl Ferritin 231.1 ng/ml Total Bilirubin 0.4 mg/dl Aspartate Amino Transf (AST/SGOT) 49 U/L Alanine Aminotransferase (ALT/SGPT) 37 U/L Alkaline Phosphatase 208 U/L Troponin I 2.250 ng/ml Total Protein 6.7 gm/dl Albumin 2.3 gm/dl Globulin 4.4 gm/dl Albumin/Globulin Ratio 0.5 Blood Gas Sample Site L Radial Art Line Bedside Blood Gas pH (LAB) 7.51 7.46 Bedside Blood Gas pCO2 (LAB) 28 mmHg 31 mmHg Bedside Blood Gas pO2 (LAB) 48 mmHg 65 mmHg Bedside Blood Gas HCO3 (LAB) 22 meq/L 22 meq/L Bedside Blood Gas Total CO2 23 mEq/l 23 mEq/l Bedside Blood Gas Base Excess (LAB) -1.0 meq/L -2.0 meq/L Bedside Blood Gas O2 Saturation 89.0 % 94.0 % Remi Test Pass NA Oxygen Delivery Device BIPAP BIPAP Bedside FiO2 60 % 60 % Bedside Oxygen Rate (breaths/min) 30 Test 10/16/16 12:10 Troponin I 1.750 ng/ml Impression Patient is a 71 year old female currently admitted w sepsis secondary to pneumomia, ARDS, JAMARI (resolved), Cdiff, NSTEMI seen for mild elevation of LFTs, and u/s evidence of mild hepatosplenomegaly. Hep C negative. Unclear etiology of elevated LFTs and hepatosplenomeglay for now, however will r/o viral infections such as mono, CMV, EBV which may cause these abnormalities. Another thought if possible sarcoidosis given respiratory issues along w weight loss. Congestive hepatopathy also among differentials. Plan - Obtain CMV, EBV, [place], [place], HSV, SPEP, alpha 1 antitrypsin labs - Monitor LFTs - May consider repeating abd u/s if appears to accumulate ascites to calculate SAAG to r/o cirrhosis (less likely given normal plts) vs infections or cardiac source of ascites. I have seen, examined and agree with the plan as outlined by NEMYAR Dorado as above. -exam reveals soft abd -Very ill lady with multiple issues that are acute now of which I am not convinced that cirrhosis and or liver disease is one of them. Given Plts being normal and physical appearances. -Infiltrative diseases such as Sarcoid (given her Chest LAD) or amyloid may be a possibility -Serology work up -If has ascites develop to the extent of ability to tap, then please send for albumin and total protein for SAAG. C-diff can also give you ascites without other etiologies. -Will follow -For now, would continue therapy for C-diff given improvement in diarrhea
[2016-10-16] MEDS: VANCOMYCIN INJ 750 MG in SODIUM CHLORIDE 0.9% 250ML 250 ML IV SCH (16:13)
[2016-10-16 18:30] LABS: BUN/CREATININE RATIO 15.1 (10-20); CALCIUM 8.9 mg/dl (8.5-10.1); CREATININE 0.99 mg/dl (0.60-1.20); POTASSIUM 2.6 mmol/L (3.5-5.1)
[2016-10-16] MEDS: POTASSIUM CHLR 10 MEQ / WTR 10 MEQ in PREMIXED WATER 100 ML IV SCH ×4 (19:15→22:34)
[2016-10-16] MEDS ORDERED: MAGNESIUM SULFATE 1GM / D5W 1 GM in PREMIXED IN D5W 100 ML IV ONE (20:30)
[2016-10-16] MEDS: METOPROLOL TARTRATE 25 MG TAB PO SCH (20:51)
[2016-10-16] MEDS: FAMOTIDINE 20 MG TAB PO SCH (20:55)
--- NOTE | 2016-10-16 21:28 | CARDIOLOGY CONSULTATION ---
DATE OF CONSULTATION: 10/16/2016 PRIMARY CARE PHYSICIAN: Dr. Dario Fontaine. REFERRING: Dr. Frank Langford and Dr. Tran. INDICATIONS: Acute respiratory distress, elevated troponins. HISTORY OF PRESENT ILLNESS: The patient is a 71-year-old female, who per discussion with the patient and review of records carries a history of chronic obstructive lung disease with chronic tobacco use, history of hyperlipidemia/hypertriglyceridemia on therapy, but no prior history of documented cardiac disease. The patient presents now having been admitted to [facility] on 10/14/2016 with 4 days history of worsening cough, right-sided chest discomfort, diarrhea and nausea. Symptoms had accelerated to the point where patient was having marked difficulty breathing. On initial evaluation she was found to be hypoxic, elevated white cell count pattern and history consistent with acute sepsis. The patient was treated with IV fluids and antibiotic therapies with initial improvement, there was persistent hypoxia. The patient last evening; however, had acute worsening respiratory distress, was transferred to the intensive care unit and begun on BiPAP supplementation. She is currently answering questions and talking appropriately with BiPAP place. Feels "substantially better than she did last evening." She notes illness as described as well as diarrhea. Stools have tested positive for C. difficile. She notes no history of chronic fever, does not use oxygen or inhalers at home. Notes no prior history of cardiac disease, myocardial infarction, angina, is relatively sedentary about her home, has had no recent bleeding difficulties, did note she had lost a substantial amount of weight 10 years ago and has been unable to regain it, but no recent acute changes in weight or sleep habits. She denies any signs or symptoms of orthopnea. REVIEW OF SYSTEMS: Otherwise negative. ALLERGIES: No known drug allergies. MEDICATIONS PRIOR TO HOSPITALIZATION: Sertraline 100 mg p.o. daily, atorvastatin 20 mg p.o. daily, fenofibrate 145 mg p.o. day and calcium supplements. PAST SURGICAL HISTORY: Notable for prior laparoscopic cholecystectomy in 2007, remote appendectomy and tonsillectomy. FAMILY HISTORY: Positive for history of rheumatic valvular disease in mother. SOCIAL HISTORY: The patient is a local resident, smokes approximately one-half pack of cigarettes per day, lives independently. Uses very rare alcoholic beverages. PHYSICAL EXAMINATION: VITAL SIGNS: Heart rate is 100, blood pressure is 159/84. GENERAL: The patient is thin, wearing a BIPAP mask. HEENT: Normocephalic and atraumatic. Nares are without discharge. Throat was clear with minimal observation through mask. NECK: There is no distinct jugular venous distention with patient at 30 degrees. LUNGS: Reveal markedly diminished breath sounds diffusely. CARDIOVASCULAR: Regular with a grade 1/6 systolic murmur. There is no diastolic murmur. ABDOMEN: Soft, nontender. EXTREMITIES: Without cyanosis or clubbing. There is no peripheral edema. DATA: EKG on presentation revealed sinus rhythm with poor R-wave progression across the anterior precordial leads, nonspecific ST segment changes. EKG this morning demonstrates sinus with minor ST flattening inferior and lateral leads, slightly more pronounced than admitting EKG. Echocardiogram today demonstrates hypokinesis, mild of the inferior and inferoseptal castrejon with otherwise preserved ejection fraction. LABORATORY DATA: On presentation white cell count was 20.3, this morning was 13.6 and hemoglobin of 10.6. There are microcytic indices present. Sodium is 134, potassium is 2.9, chloride is 99, bicarbonate 23, BUN 16, creatinine 0.82. Troponin on initial presentation was less than 0.015, last evening was 3.9 and this morning 2.25. Albumin level is 2.3. Chest x-ray today reflects multifocal patchy airspace consolidation consistent with multifocal pneumonia, findings consistent with advanced emphysema. IMPRESSION: A 71-year-old female without prior documented ischemic heart disease admitted with sepsis, pneumonia with worsening pulmonary status. She has been transferred to the intensive care unit and is currently on BiPAP supplementation with marginal oxygenation. With demands of acute illness she has manifested a non-ST segment elevation myocardial infarction with mild hypokinesis of the inferior wall and inferoseptal castrejon noted on echocardiogram and elevated troponin. PLAN: Support respiratory status. Add beta zelda as tolerated for heart rate control. Add topical nitrates if blood pressure allows. We discussed with the actuarial analyst, patient is marginal for ongoing oxygenation and may likely require intubation during clinical course. Iron studies will be ordered. We will follow patient in the hospital.
[2016-10-16] MEDS ORDERED: POTASSIUM CHLORIDE 20 MEQ TABCR PO SCH (22:00)
[2016-10-16] MEDS: LORAZEPAM 0.5 MG TAB PO PRN (22:16)
[2016-10-17] VITALS (14 sets, daily range): BP systolic 121–172; BP diastolic 60–98; PULSE 75–93; TEMP 36.8–37.3; O2SAT 89–99
[2016-10-17] MEDS: PIPERACILL/TAZOBAC IV 3.375 GM in DEXTROSE 5% 100ML IV SCH ×3 (03:33→19:25)
[2016-10-17 05:34] LABS: HEMATOCRIT 26.4 % (37-47); MEAN CELL VOLUME 75.9 fL (80-100); MEAN CORPUSCULAR HEMOGLOBIN 26.7 pg (25-34); MEAN CORPUSCULAR HGB CONC 35.2 g/dl (32-36); MEAN PLATELET VOLUME 8.7 fL (7.4-10.4); PLATELET COUNT 303 K/uL (130-400); RED BLOOD COUNT 3.48 M/uL (4.2-5.4); WHITE BLOOD COUNT 12.32 K/uL (4.8-10.8)
[2016-10-17 05:45] LABS: PARTIAL THROMBOPLASTIN RATIO 1.7
[2016-10-17 06:04] LABS: ISTAT ALLEN TEST Pass; ISTAT ARTERIAL BLOOD GAS HCO3 26 meq/L (19-24); ISTAT ARTERIAL BLOOD GAS PCO2 36 mmHg (35-46); ISTAT ARTERIAL BLOOD GAS PO2 80 mmHg (80-95); ISTAT ARTERIAL BLOOD GAS pH 7.46 (7.35-7.45); ISTAT CARBON DIOXIDE 27 mEq/l (24-31); ISTAT DELIVERY SYSTEM BIPAP; ISTAT FIO2 60 %; ISTAT SITE L Radial
[2016-10-17 06:06] LABS: BASO % 0.1 %; BASO ABS # 0.01 K/uL (0-0.2); COMPLETE YES; EOS % 0.6 %; IG% 0.9 %; LYMPH % 4.5 %; LYMPH ABS # 0.55 K/uL (1.2-3.4); MONO % 3.3 %; NEUT % 90.6 %
[2016-10-17] MEDS: NITROGLYCERIN OINT 2% 1GM PACKET EXT SCH ×3 (06:08→19:26)
[2016-10-17 06:11] LABS: BUN/CREATININE RATIO 19.1 (10-20); CALCIUM 8.8 mg/dl (8.5-10.1); CREATININE 0.81 mg/dl (0.60-1.20); MAGNESIUM 1.8 mg/dl (1.8-2.4); POTASSIUM 3.5 mmol/L (3.5-5.1)
[2016-10-17 06:16] LABS: ALB/GLOB RATIO 0.5 (0.9-2); PHOSPHORUS 2.2 mg/dl (2.5-4.9)
[2016-10-17] MEDS ORDERED: HEPARIN IV BOLUS 2,000 UNIT in SYRINGE 0 ML IV ONE ×2 (06:45→13:30)
--- NOTE | 2016-10-17 06:59 | DIAGNOSTIC IMAGING REPORT ---
CHEST ONE VIEW PORTABLE CLINICAL HISTORY: Pneumonia COMPARISON STUDY: 10/16/2016 FINDINGS: There is evidence of advanced pulmonary emphysema. There is diffuse elevation of the interstitium, raising the possibility of superimposed congestive failure, or a multifocal interstitial inflammatory process.. There is an area of more focal consolidation within the base the right upper lobe consistent with a pneumonia.[ There is minimal blunting of the lateral costophrenic angles. IMPRESSION: 1. Advanced emphysema 2. Pulmonary consolidation involving the base the right upper lobe consistent with pneumonia 3. Diffuse elevation of the interstitium. This could be secondary to either superimposed congestive failure, or a multifocal interstitial inflammatory process. 4. The examination remains essentially unchanged from the prior study Electronically signed by: Jon Woodruff M.D. 10/17/2016 6:58 AM Dictated Date/Time: 10/17/2016 6:56 AM
[2016-10-17] MEDS ORDERED: MAGNESIUM SULFATE 1GM / D5W 1 GM in PREMIXED IN D5W 100 ML IV SCH ×2 (08:45→12:30)
[2016-10-17] MEDS: CALCIUM 600MG + VIT D 400 IU TAB PO SCH ×2 (08:49→20:44)
[2016-10-17] MEDS: SERTRALINE HCL 50 MG TAB PO SCH (08:50)
[2016-10-17] MEDS: VANCOMYCIN HCL 125 MG/2.5ML SOLN PO SCH ×4 (08:50→20:43)
[2016-10-17] MEDS: METOPROLOL TARTRATE 25 MG TAB PO SCH ×3 (08:50→20:43)
[2016-10-17] MEDS: FENOFIBRATE 145 MG TAB PO SCH (08:50)
[2016-10-17] MEDS: RASPBERRY SYRUP 5 ML UDP PO SCH ×4 (08:50→20:43)
[2016-10-17] MEDS: ATORVASTATIN 20 MG TAB PO SCH (08:50)
[2016-10-17] MEDS: FAMOTIDINE 20 MG TAB PO SCH ×2 (08:50→20:44)
[2016-10-17] MEDS: ASPIRIN 325 MG ECTAB PO SCH (08:50)
[2016-10-17] MEDS: LACTOBACILLUS ACIDOPHILUS (FLORANEX) TAB PO SCH ×3 (08:51→17:04)
[2016-10-17] MEDS: POTASSIUM CHLORIDE 20 MEQ TABCR PO SCH (08:51)
[2016-10-17] MEDS: BOOST PLUS VANILLA PO SCH ×6 (08:56→20:46)
--- NOTE | 2016-10-17 09:41 | CARDIOLOGY PROGRESS NOTE ---
DATE: 10/17/2016 DATE: 10/17/2016. The patient seen and examined. Chart, medications, telemetry reviewed. SUBJECTIVE: The patient appears slightly improved from day prior. Still with marginal respiratory status. Heart rates and blood pressure have been stable. She denies any chest pain other than right sided flank discomfort. Notes no orthopnea. Notes no edema. OBJECTIVE: VITAL SIGNS: Heart rate 87, blood pressure is 150/90. NECK: Thin. There is no jugular venous distention. LUNGS: Notable for diffusely diminished breath sounds, right greater than left. ABDOMEN: Soft. EXTREMITIES: Free of edema. LABORATORY DATA: White cell count is 12.3, hemoglobin is 9.3. Sodium is 134, potassium 3.5, chloride is 98, bicarbonate 25, BUN 16, creatinine 0.8, troponin is 1.0. Chest x-ray reveals persistent right upper lobe consolidation and diffuse emphysema. IMPRESSION: A 71-year-old female with severe emphysematous lung disease admitted with acute pneumonia, respiratory distress and associated demand based non-ST segment elevation myocardial infarction. RECOMMENDATIONS: Will increase metoprolol to 25 mg t.i.d. Will increase topical nitrates to 1-1/2 inches q. 6 for blood pressure and heart rate management. Continue heparin additional day. Supplement potassium to greater than 4 as already ordered. EKG ordered for this morning.
[2016-10-17] MEDS ORDERED: POTASSIUM PHOSPHATE INJ 15 MMOL in SODIUM CHLORIDE 0.9% 250ML 250 ML IV SCH (10:00)
--- NOTE | 2016-10-17 10:00 | Critical Care Progress Note ---
Critical Care Progress Note Date of Service Oct 17, 2016. Attending Dr. Tran Subjective 71 y/o F with extensive smoking history and COPD admitted with 4 day history of cough, SOB, diarrhea on 10/14 and treated for RUL pneumonia , hypokalemia, JAMARI and was treated with Levaquin for CAP. She was also found to be have C.diff colitis though she has no recent antibiotic use and was treated with vancomycin PO She was transferred to the ICU with acute worsening resp distress Has been doing better on HFNC. denies any chest pain/SOB/palpitations but has some pain along the right side of chest on deep inspiration and coughing. Had 1 loose stool yesterday, denies any nausea/vomiting or abdominal pain Objective GENERAL: Patient is in mild distress , HFNC HEENT: No acute trauma, normocephalic atraumatic, mucous membranes moist, no nasal congestion, no scleral icterus. NECK: No stridor, no adenopathy, no meningismus, trachea is midline. LUNGS: Clear to auscultation bilaterally, no wheeze, no rhonchi, breath sounds equal. HEART: Without murmurs gallops or rubs, regular rate and rhythm. ABDOMEN: Soft, nontender, bowel sounds positive, no hernias, no peritonitis. EXTREMITIES: No cyanosis or edema, full range of motion of all the joints without pain or difficulty, no signs for acute trauma. Right UE arterial line NEUROLOGIC: Oriented x 3, no acute motor or sensory deficits, no focal weakness. SKIN: No rash, no jaundice, no diaphoresis. Assessment & Plan 71 y/o F with extensive smoking history and COPD admitted with 4 day history of cough, SOB, diarrhea on 10/14 and treated for RUL pneumonia , hypokalemia, JAMARI She was transferred to the ICU with acute worsening Resp distress overnight with oxygen saturations dropping to 70s . She was restarted on broad spectrum abx and started on a heparin drip for a possible pneumonia. Doing better on HFNC Neuro: h/o Depression: Continue Zoloft Ativan PRN Resp: Acute hypoxic respiratory failure: on HFNC currently RUL pneumonia: - CXR 10/16: Multifocal patchy airspace consolidation is similar to previous and typical for multifocal pneumonia. Extensive emphysema. CXR 10/17: Pulmonary consolidation involving the base the right upper lobe consistent with pneumonia, advanced emphysema - Influenza PCR X2 negative - BC - no growth so far - Vancomycin, Zosyn, Levaquin Elevated d-dimer - D-dimer at 930 , PE vs Lung pathology - CTA deferred considering recent JAMARI - Echo : mild hypokinesis of the inferior wall and inferior septum with otherwise preserved wall motion. EF 55-60%. - Venous Doppler US: negative - Heparin drip for another day Cardiovascular: - Elevated troponin NSTEMI: EKG: - Trend troponins: 3.9 -->2.2--->1.75--->1.08 - Aspirin 325 mg - Metoprolol 25 mg TID - Nitro paste 1 1/2 inch q6h - Continue statins [place] [address] - strict Is and Os GI/FEN: Elevated AST and alkaline phosphatase: - Trending down but continue to monitor - Abdominal US: Mild hepatosplenomegaly. Trace perihepatic and perisplenic ascites. Prior cholecystectomy - Hep C negative - GI consulted - appreciate input - CMV, EBV, MOno, HSV, SPEP, alpha 1 antitrypsin pending DIET: advance as tolerated Pepcid for GI prophylaxis Renal JAMARI : resolved - Cr at admission at 2--->0.8 today - Is and Os Electrolytes: - Hypokalemia: K at 3.5, 24 Mmol Kphos , 40 KCL PO - Hypomagnesemia : Mg at 1.8, 2 g magnesium ID: Community-acquired pneumonia - Zosyn, vancomycin, Levaquin ( for atypical coverage) - Influenza X 2negative C. difficile colitis - Stool WBC negative - Negative salmonella - No recent abx use - PO vancomycin for 14 days Endocrine - Blood sugar within range DVT prophylaxis: - Heparin Drip for possible PE - SCDs PT/OT CODE STATUS: Full code Resident Physician Supervision Note: Dr. Bernard Goddard was resident physician during care of patient. I separately evaluated patient and did history and exam. I discussed the case with the resident and generally agree with the findings and plan. Patient's oxygenation mildly better, tolerated CPAP throughout the night via oronasal face mask. I have opted to not de-escalate the antibiotics at this point given that her lungs were so tenuous and bordering on requiring endotracheal intubation and mechanical ventilation. I have personally spent 35 minutes of critical care time in the direct management of this patient. This is a life/limb threatening event. This includes time spent evaluating patient, direct bedside care, chart review, placing orders, interpretation of diagnostic studies, discussion with consultants, patient, and family members, as well as other required patient management activities. This time is exclusive of all separately billable procedures, and teaching time and separate from and in addition to any other critical care service time. Documented By: Elías Tran DO Data Medications: Current Inpatient Medications Medications (Trade) Dose Ordered Sig/Jarrod Route Start Time Stop Time Status Last Admin Dose Admin Acetaminophen (Tylenol Tab) 650 mg Q4H PRN PO 10/14/16 13:45 11/13/16 13:44 10/16/16 13:41 650 MG Al Hydrox/Mg Hydrox/Simethicone (Maalox Max Susp) 15 ml Q4H PRN PO 10/14/16 13:45 11/13/16 13:44 Magnesium Hydroxide (Milk Of Magnesia Susp) 30 ml Q12H PRN PO 10/14/16 13:45 11/13/16 13:44 Ondansetron HCl (Zofran Inj) 4 mg Q6H PRN IV 10/14/16 13:45 11/13/16 13:44 Atorvastatin Calcium (Lipitor Tab) 20 mg DAILY PO 10/15/16 09:00 11/14/16 08:59 10/17/16 08:50 20 MG Fenofibrate (Tricor Tab) 145 mg DAILY PO 10/15/16 09:00 11/14/16 08:59 10/17/16 08:50 145 MG Sertraline HCl (Zoloft Tab) 50 mg DAILY PO 10/15/16 09:00 11/14/16 08:59 10/17/16 08:50 50 MG Calcium/Vitamin D (Caltrate Plus Tab) 1 tab BID PO 10/14/16 21:00 11/13/16 20:59 10/17/16 08:49 1 TAB Albuterol/ Ipratropium (Duoneb) 3 ml Q4R PRN INH 10/14/16 15:45 Levofloxacin (Consult) 1 ea UD PRN N/A 10/14/16 16:15 10/20/16 23:59 Potassium Chloride (Klor-Con Tab) 20 meq QAM PO 10/15/16 09:00 11/14/16 08:59 10/17/16 08:51 20 MEQ Vancomycin HCl (Vancomycin Oral Soln) 125 mg QID PO 10/15/16 09:00 11/03/16 23:59 10/17/16 08:50 125 MG Raspberry (Raspberry Syrup 5ml Cup) 5 ml QID PO 10/15/16 09:00 11/03/16 23:59 10/17/16 08:50 5 ML Lactobacillus Acidophilus (Floranex Tab) 4 tab TIDM PO 10/15/16 07:30 11/14/16 07:29 10/17/16 08:51 4 TAB Enteral Nutritional Formula 1 can 1 can TID PO 10/15/16 14:00 11/14/16 13:59 10/17/16 08:56 1 CAN Levofloxacin/Prmx (Levaquin / D5W/ Premixed D5W) 150 ml @ 100 mls/hr Q2D@1200 IV 10/16/16 12:00 10/20/16 23:59 10/16/16 13:02 100 MLS/HR Lorazepam (Ativan Tab) 0.25 mg Q4H PRN PO 10/15/16 23:30 11/14/16 23:29 10/16/16 22:16 0.25 MG Vancomycin HCl (Consult) 1 ea UD PRN N/A 10/15/16 23:30 11/14/16 23:29 Piperacillin Sod/ Tazobactam Sod (Consult) 1 ea UD PRN N/A 10/16/16 00:30 11/15/16 00:29 Aspirin 325 mg 325 mg QAM PO 10/17/16 09:00 11/16/16 08:59 10/17/16 08:50 325 MG Piperacillin Sod/ Tazobactam Sod 3.375 gm/Dextrose 115 ml @ 28.75 mls/ hr Q8H IV 10/16/16 04:00 10/23/16 03:59 10/17/16 03:33 28.75 MLS/HR Heparin Sodium/ Dextrose 500 ml @ 16 mls/hr Q24H PRN IV 10/16/16 01:30 11/15/16 01:29 10/16/16 01:38 14 MLS/HR Vancomycin HCl/ Sodium Chloride (Vancomycin Inj/ Nss 250ml) 265 ml @ 125 mls/hr Q24H IV 10/16/16 16:00 10/21/16 23:59 10/16/16 16:13 125 MLS/HR Famotidine 20 mg 20 mg BID PO 10/16/16 21:00 11/15/16 20:59 10/17/16 08:50 20 MG Potassium Phosphate/Sodium Chloride (Potassium Phosphate Inj/Nss 250ml) 255 ml @ 102 mls/hr TODAY@1000 IV 10/17/16 10:00 10/17/16 12:29 10/17/16 08:49 102 MLS/HR Metoprolol Tartrate (Lopressor Tab) 25 mg TID PO 10/17/16 14:00 11/16/16 13:59 UNV Nitroglycerin (Nitroglycerin 2% Oint) 1.5 inch Q6H EXT 10/17/16 12:45 11/16/16 12:44 UNV I & O: 24-Hour Column 10/17/16 08:00 Intake Total 2610 ml Output Total 2325 ml Balance 285 ml Vital Signs: Date Time Temp Pulse Resp B/P Pulse Ox O2 Delivery O2 Flow Rate FiO2 10/17/16 08:00 89 24 158/85 90 High Flow Oxygen 50.0 60 10/17/16 08:00 High Flow Oxygen 50.0 60 10/17/16 06:00 87 25 150/90 93 High Flow Oxygen 60 10/17/16 04:00 36.8 87 26 121/91 96 CPAP 60 148/87 10/17/16 04:00 99 CPAP 60 10/17/16 03:40 85 98 60 10/17/16 02:00 78 22 159/85 96 CPAP 60 10/17/16 00:00 37.0 75 26 149/86 98 CPAP 60 10/16/16 23:59 100 CPAP 60 10/16/16 22:26 78 92 60 10/16/16 22:00 82 24 155/86 95 High Flow Oxygen 70 10/16/16 20:01 36.4 92 22 154/84 87 High Flow Oxygen 60 138/95 10/16/16 20:00 92 High Flow Oxygen 70 10/16/16 18:20 36.8 92 24 145/70 92 CPAP 60 10/16/16 16:00 CPAP 60 10/16/16 16:00 96 24 125/64 90 CPAP 60 10/16/16 14:00 36.9 91 20 117/77 90 CPAP 70 10/16/16 12:30 91 22 145/86 89 CPAP 60 10/16/16 12:30 CPAP 50 10/16/16 11:31 99 90 60 10/16/16 10:00 96 28 146/87 96 CPAP 60 Laboratory Results: Last 24 Hours Test 10/16/16 11:18 10/16/16 12:10 10/16/16 14:56 10/16/16 16:05 Blood Gas Sample Site Art Line Art Line Bedside Blood Gas pH (LAB) 7.46 7.56 Bedside Blood Gas pCO2 (LAB) 31 mmHg 25 mmHg Bedside Blood Gas pO2 (LAB) 65 mmHg 61 mmHg Bedside Blood Gas HCO3 (LAB) 22 meq/L 22 meq/L Bedside Blood Gas Total CO2 23 mEq/l 23 mEq/l Bedside Blood Gas Base Excess (LAB) -2.0 meq/L 0.0 meq/L Bedside Blood Gas O2 Saturation 94.0 % 95.0 % Remi Test NA NA Oxygen Delivery Device BIPAP Cannula Bedside Oxygen Rate (breaths/min) 30 Bedside FiO2 60 % Troponin I 1.750 ng/ml Monoscreen NEG Test 10/16/16 18:05 10/17/16 05:19 10/17/16 05:50 Sodium Level 133 mmol/L 134 mmol/L Potassium Level 2.6 mmol/L 3.5 mmol/L Chloride Level 97 mmol/L 98 mmol/L Carbon Dioxide Level 24 mmol/L 25 mmol/L Anion Gap 12.0 mmol/L 11.0 mmol/L Blood Urea Nitrogen 15 mg/dl 16 mg/dl Creatinine 0.99 mg/dl 0.81 mg/dl Est Creatinine Clear Calc Drug Dose 34.2 ml/min 41.8 ml/min Estimated GFR () 67.4 85.9 Estimated GFR (Non- 58.1 74.1 BUN/Creatinine Ratio 15.1 19.1 Random Glucose 121 mg/dl 106 mg/dl Calcium Level 8.9 mg/dl 8.8 mg/dl White Blood Count 12.32 K/uL Red Blood Count 3.48 M/uL Hemoglobin 9.3 g/dL Hematocrit 26.4 % Mean Corpuscular Volume 75.9 fL Mean Corpuscular Hemoglobin 26.7 pg Mean Corpuscular Hemoglobin Concent 35.2 g/dl Platelet Count 303 K/uL Mean Platelet Volume 8.7 fL Neutrophils (%) (Auto) 90.6 % Lymphocytes (%) (Auto) 4.5 % Monocytes (%) (Auto) 3.3 % Eosinophils (%) (Auto) 0.6 % Basophils (%) (Auto) 0.1 % Neutrophils # (Auto) 11.17 K/uL Lymphocytes # (Auto) 0.55 K/uL Monocytes # (Auto) 0.41 K/uL Eosinophils # (Auto) 0.07 K/uL Basophils # (Auto) 0.01 K/uL RDW Standard Deviation 42.3 fL RDW Coefficient of Variation 15.1 % Immature Granulocyte % (Auto) 0.9 % Immature Granulocyte # (Auto) 0.11 K/uL Nucleated RBC Absolute Count (auto) 0.02 K/uL Nucleated Red Blood Cells % 0.1 % Red Blood Cell Morphology Unremarkable Activated Partial Thromboplast Time 43.7 SECONDS Partial Thromboplastin Ratio 1.7 Phosphorus Level 2.2 mg/dl Magnesium Level 1.8 mg/dl Total Bilirubin 0.5 mg/dl Direct Bilirubin 0.2 mg/dl Aspartate Amino Transf (AST/SGOT) 31 U/L Alanine Aminotransferase (ALT/SGPT) 29 U/L Alkaline Phosphatase 164 U/L Troponin I 1.080 ng/ml Total Protein 6.1 gm/dl Albumin 1.9 gm/dl Globulin 4.2 gm/dl Albumin/Globulin Ratio 0.5 Blood Gas Sample Site L Radial Bedside Blood Gas pH (LAB) 7.46 Bedside Blood Gas pCO2 (LAB) 36 mmHg Bedside Blood Gas pO2 (LAB) 80 mmHg Bedside Blood Gas HCO3 (LAB) 26 meq/L Bedside Blood Gas Total CO2 27 mEq/l Bedside Blood Gas Base Excess (LAB) 2.0 meq/L Bedside Blood Gas O2 Saturation 97.0 % Remi Test Pass Oxygen Delivery Device BIPAP Bedside FiO2 60 %
--- NOTE | 2016-10-17 10:58 | Gastroenterology Progress Note ---
Progress Note Date of Service: Oct 17, 2016 Subjective Pt evaluation today including: conversation w/ patient, conversation w/ family , physical exam, chart review, lab review, review of inpatient medication list Pt reports feeling well, denies any issues w abd pain, n/v. Diarrhea resolving, last BM yesterday w/o rectal bleeding. Tolerating CL diet well. LFTs normalizing, repeat Cdiff negative. Review of Systems Constitutional: No chills, No fever Respiratory: + shortness of breath (improved), No cough Abdomen: No diarrhea, No nausea, No pain, No vomiting Medications Current Inpatient Medications Medications (Trade) Dose Ordered Sig/Jarrod Route Start Time Stop Time Status Last Admin Dose Admin Acetaminophen (Tylenol Tab) 650 mg Q4H PRN PO 10/14/16 13:45 11/13/16 13:44 10/16/16 13:41 650 MG Al Hydrox/Mg Hydrox/Simethicone (Maalox Max Susp) 15 ml Q4H PRN PO 10/14/16 13:45 11/13/16 13:44 Magnesium Hydroxide (Milk Of Magnesia Susp) 30 ml Q12H PRN PO 10/14/16 13:45 11/13/16 13:44 Ondansetron HCl (Zofran Inj) 4 mg Q6H PRN IV 10/14/16 13:45 11/13/16 13:44 Atorvastatin Calcium (Lipitor Tab) 20 mg DAILY PO 10/15/16 09:00 11/14/16 08:59 10/17/16 08:50 20 MG Fenofibrate (Tricor Tab) 145 mg DAILY PO 10/15/16 09:00 11/14/16 08:59 10/17/16 08:50 145 MG Sertraline HCl (Zoloft Tab) 50 mg DAILY PO 10/15/16 09:00 11/14/16 08:59 10/17/16 08:50 50 MG Calcium/Vitamin D (Caltrate Plus Tab) 1 tab BID PO 10/14/16 21:00 11/13/16 20:59 10/17/16 08:49 1 TAB Albuterol/ Ipratropium (Duoneb) 3 ml Q4R PRN INH 10/14/16 15:45 Levofloxacin (Consult) 1 ea UD PRN N/A 10/14/16 16:15 10/20/16 23:59 Potassium Chloride (Klor-Con Tab) 20 meq QAM PO 10/15/16 09:00 11/14/16 08:59 10/17/16 08:51 20 MEQ Vancomycin HCl (Vancomycin Oral Soln) 125 mg QID PO 10/15/16 09:00 11/03/16 23:59 10/17/16 08:50 125 MG Raspberry (Raspberry Syrup 5ml Cup) 5 ml QID PO 10/15/16 09:00 11/03/16 23:59 10/17/16 08:50 5 ML Lactobacillus Acidophilus (Floranex Tab) 4 tab TIDM PO 10/15/16 07:30 11/14/16 07:29 10/17/16 08:51 4 TAB Enteral Nutritional Formula 1 can 1 can TID PO 10/15/16 14:00 11/14/16 13:59 10/17/16 08:56 1 CAN Levofloxacin/Prmx (Levaquin / D5W/ Premixed D5W) 150 ml @ 100 mls/hr Q2D@1200 IV 10/16/16 12:00 10/20/16 23:59 10/16/16 13:02 100 MLS/HR Lorazepam (Ativan Tab) 0.25 mg Q4H PRN PO 10/15/16 23:30 11/14/16 23:29 10/16/16 22:16 0.25 MG Vancomycin HCl (Consult) 1 ea UD PRN N/A 10/15/16 23:30 11/14/16 23:29 Piperacillin Sod/ Tazobactam Sod (Consult) 1 ea UD PRN N/A 10/16/16 00:30 11/15/16 00:29 Aspirin 325 mg 325 mg QAM PO 10/17/16 09:00 11/16/16 08:59 10/17/16 08:50 325 MG Piperacillin Sod/ Tazobactam Sod 3.375 gm/Dextrose 115 ml @ 28.75 mls/ hr Q8H IV 10/16/16 04:00 10/23/16 03:59 10/17/16 03:33 28.75 MLS/HR Heparin Sodium/ Dextrose 500 ml @ 16 mls/hr Q24H PRN IV 10/16/16 01:30 11/15/16 01:29 10/16/16 01:38 14 MLS/HR Vancomycin HCl/ Sodium Chloride (Vancomycin Inj/ Nss 250ml) 265 ml @ 125 mls/hr Q24H IV 10/16/16 16:00 10/21/16 23:59 10/16/16 16:13 125 MLS/HR Famotidine 20 mg 20 mg BID PO 10/16/16 21:00 11/15/16 20:59 10/17/16 08:50 20 MG Potassium Phosphate/Sodium Chloride (Potassium Phosphate Inj/Nss 250ml) 255 ml @ 102 mls/hr TODAY@1000 IV 10/17/16 10:00 10/17/16 12:29 10/17/16 08:49 102 MLS/HR Metoprolol Tartrate (Lopressor Tab) 25 mg TID PO 10/17/16 14:00 11/16/16 13:59 Nitroglycerin (Nitroglycerin 2% Oint) 1.5 inch Q6H EXT 10/17/16 13:00 11/16/16 12:59 Objective Vital Signs Date Time Temp Pulse Resp B/P Pulse Ox O2 Delivery O2 Flow Rate FiO2 10/17/16 10:12 87 20 147/80 89 High Flow Oxygen 50.0 60 10/17/16 08:00 89 24 158/85 90 High Flow Oxygen 50.0 60 10/17/16 08:00 High Flow Oxygen 50.0 60 10/17/16 06:00 87 25 150/90 93 High Flow Oxygen 60 10/17/16 04:00 36.8 87 26 121/91 96 CPAP 60 148/87 10/17/16 04:00 99 CPAP 60 10/17/16 03:40 85 98 60 10/17/16 02:00 78 22 159/85 96 CPAP 60 10/17/16 00:00 37.0 75 26 149/86 98 CPAP 60 10/16/16 23:59 100 CPAP 60 10/16/16 22:26 78 92 60 10/16/16 22:00 82 24 155/86 95 High Flow Oxygen 70 10/16/16 20:01 36.4 92 22 154/84 87 High Flow Oxygen 60 138/95 10/16/16 20:00 92 High Flow Oxygen 70 10/16/16 18:20 36.8 92 24 145/70 92 CPAP 60 10/16/16 16:00 CPAP 60 10/16/16 16:00 96 24 125/64 90 CPAP 60 10/16/16 14:00 36.9 91 20 117/77 90 CPAP 70 10/16/16 12:30 91 22 145/86 89 CPAP 60 10/16/16 12:30 CPAP 50 10/16/16 11:31 99 90 60 Physical Exam General Appearance: WD/WN, no apparent distress, + thin Eyes: normal inspection, PERRL, EOMI Neck: supple, no JVD, trachea midline Respiratory/Chest: no respiratory distress, no accessory muscle use, + decreased breath sounds Cardiovascular: regular rate, rhythm, no gallop, no murmur Abdomen: normal bowel sounds, non tender, soft Extremities: normal inspection, no pedal edema, no calf tenderness Neurologic/Psych: alert, normal mood/affect, oriented x 3 Skin: normal color, no jaundice, no rash Laboratory Results Last 24 Hours Test 10/16/16 11:18 10/16/16 12:10 10/16/16 14:56 10/16/16 16:05 Blood Gas Sample Site Art Line Art Line Bedside Blood Gas pH (LAB) 7.46 7.56 Bedside Blood Gas pCO2 (LAB) 31 mmHg 25 mmHg Bedside Blood Gas pO2 (LAB) 65 mmHg 61 mmHg Bedside Blood Gas HCO3 (LAB) 22 meq/L 22 meq/L Bedside Blood Gas Total CO2 23 mEq/l 23 mEq/l Bedside Blood Gas Base Excess (LAB) -2.0 meq/L 0.0 meq/L Bedside Blood Gas O2 Saturation 94.0 % 95.0 % Remi Test NA NA Oxygen Delivery Device BIPAP Cannula Bedside Oxygen Rate (breaths/min) 30 Bedside FiO2 60 % Troponin I 1.750 ng/ml Monoscreen NEG Test 10/16/16 18:05 10/17/16 05:19 10/17/16 05:50 Sodium Level 133 mmol/L 134 mmol/L Potassium Level 2.6 mmol/L 3.5 mmol/L Chloride Level 97 mmol/L 98 mmol/L Carbon Dioxide Level 24 mmol/L 25 mmol/L Anion Gap 12.0 mmol/L 11.0 mmol/L Blood Urea Nitrogen 15 mg/dl 16 mg/dl Creatinine 0.99 mg/dl 0.81 mg/dl Est Creatinine Clear Calc Drug Dose 34.2 ml/min 41.8 ml/min Estimated GFR () 67.4 85.9 Estimated GFR (Non- 58.1 74.1 BUN/Creatinine Ratio 15.1 19.1 Random Glucose 121 mg/dl 106 mg/dl Calcium Level 8.9 mg/dl 8.8 mg/dl White Blood Count 12.32 K/uL Red Blood Count 3.48 M/uL Hemoglobin 9.3 g/dL Hematocrit 26.4 % Mean Corpuscular Volume 75.9 fL Mean Corpuscular Hemoglobin 26.7 pg Mean Corpuscular Hemoglobin Concent 35.2 g/dl Platelet Count 303 K/uL Mean Platelet Volume 8.7 fL Neutrophils (%) (Auto) 90.6 % Lymphocytes (%) (Auto) 4.5 % Monocytes (%) (Auto) 3.3 % Eosinophils (%) (Auto) 0.6 % Basophils (%) (Auto) 0.1 % Neutrophils # (Auto) 11.17 K/uL Lymphocytes # (Auto) 0.55 K/uL Monocytes # (Auto) 0.41 K/uL Eosinophils # (Auto) 0.07 K/uL Basophils # (Auto) 0.01 K/uL RDW Standard Deviation 42.3 fL RDW Coefficient of Variation 15.1 % Immature Granulocyte % (Auto) 0.9 % Immature Granulocyte # (Auto) 0.11 K/uL Nucleated RBC Absolute Count (auto) 0.02 K/uL Nucleated Red Blood Cells % 0.1 % Red Blood Cell Morphology Unremarkable Activated Partial Thromboplast Time 43.7 SECONDS Partial Thromboplastin Ratio 1.7 Phosphorus Level 2.2 mg/dl Magnesium Level 1.8 mg/dl Total Bilirubin 0.5 mg/dl Direct Bilirubin 0.2 mg/dl Aspartate Amino Transf (AST/SGOT) 31 U/L Alanine Aminotransferase (ALT/SGPT) 29 U/L Alkaline Phosphatase 164 U/L Troponin I 1.080 ng/ml Total Protein 6.1 gm/dl Albumin 1.9 gm/dl Globulin 4.2 gm/dl Albumin/Globulin Ratio 0.5 Blood Gas Sample Site L Radial Bedside Blood Gas pH (LAB) 7.46 Bedside Blood Gas pCO2 (LAB) 36 mmHg Bedside Blood Gas pO2 (LAB) 80 mmHg Bedside Blood Gas HCO3 (LAB) 26 meq/L Bedside Blood Gas Total CO2 27 mEq/l Bedside Blood Gas Base Excess (LAB) 2.0 meq/L Bedside Blood Gas O2 Saturation 97.0 % Remi Test Pass Oxygen Delivery Device BIPAP Bedside FiO2 60 % Assessment and Plan Impression Patient is a 71 year old female currently admitted w sepsis secondary to pneumomia, ARDS, JAMARI (resolved), Cdiff, NSTEMI seen for mild elevation of LFTs, and u/s evidence of mild hepatosplenomegaly. Hep C negative. Unclear etiology of elevated LFTs and hepatosplenomeglay for now, however will r/o viral infections such as mono, CMV, EBV which may cause these abnormalities. Another thought if possible sarcoidosis given respiratory issues along w weight loss. Congestive hepatopathy also among differentials. Plan - Obtain CMV, EBV, Tift, Parvo, HSV, SPEP, alpha 1 antitrypsin labs -> pending - Monitor LFTs -> normalizing. - May consider repeating abd u/s if appears to accumulate ascites to calculate SAAG to r/o cirrhosis (less likely given normal plts) vs infections or cardiac source of ascites -> defer for now. - Recommend continuing Vancomycin 125mg q6hr PO for Cdiff treatment to complete the 10 days course given diarrhea improving, initial Cdiff test was positive, and she's on multiple systemic antibiotics. I have seen , examined and agree with the plan as outlined by NEYMAR Mcelroy as above. -exam reveals soft abd -Improving -Continue c-diff treatment -Will sign off
[2016-10-17] MEDS ORDERED: POTASSIUM CHLORIDE 20 MEQ TABCR PO ONE ×2 (12:30→17:30)
[2016-10-17 12:49] LABS: PARTIAL THROMBOPLASTIN RATIO 1.8
[2016-10-17] MEDS ORDERED: POTASSIUM PHOSPHATE INJ 9 MMOL in SODIUM CHLORIDE 0.9% 250ML 250 ML IV SCH (13:00)
[2016-10-17] MEDS ORDERED: VANCOMYCIN TROUGH SCH (15:30)
[2016-10-17 16:14] LABS: BUN/CREATININE RATIO 17.1 (10-20); CALCIUM 8.4 mg/dl (8.5-10.1); CREATININE 0.82 mg/dl (0.60-1.20); MAGNESIUM 2.2 mg/dl (1.8-2.4); POTASSIUM 3.3 mmol/L (3.5-5.1)
[2016-10-17 16:25] LABS: PHOSPHORUS 3.6 mg/dl (2.5-4.9)
[2016-10-17] MEDS: VANCOMYCIN INJ 750 MG in SODIUM CHLORIDE 0.9% 250ML 250 ML IV SCH (17:04)
--- NOTE | 2016-10-17 18:15 | Progress Note ---
Subjective Date of Service: Oct 17, 2016. Subjective Pt evaluation today including: conversation w/ patient, physical exam, lab review, review of studies, review of inpatient medication list Saw/examined the patient in room 108 She is doing better this morning Denies chest pain, shortness of breath +tired, +fatigued, +weakness Problem List Medical Problems: (1) JAMARI (acute kidney injury) Status: Acute (2) COPD (chronic obstructive pulmonary disease) Status: Acute (3) Elevated alkaline phosphatase level Status: Acute (4) Hypoalbuminemia Status: Acute (5) Hypokalemia Status: Acute (6) Hypomagnesemia Status: Acute (7) Hyponatremia Status: Acute (8) Nausea, vomiting, and diarrhea Status: Acute (9) Right upper lobe pneumonia Status: Acute (10) Vomiting Status: Acute Review of Systems Constitutional: + fatigue, + weakness, No chills, No fever Respiratory: No cough, No shortness of breath, No sputum Cardiac: No chest pain Abdomen: + diarrhea, No nausea, No pain, No vomiting Female : No dysuria, No urinary frequency Heme: No abnormal bleeding/bruising Medications Current Inpatient Medications Medications (Trade) Dose Ordered Sig/Jarrod Route Start Time Stop Time Status Last Admin Dose Admin Acetaminophen (Tylenol Tab) 650 mg Q4H PRN PO 10/14/16 13:45 11/13/16 13:44 10/16/16 13:41 650 MG Al Hydrox/Mg Hydrox/Simethicone (Maalox Max Susp) 15 ml Q4H PRN PO 10/14/16 13:45 11/13/16 13:44 Magnesium Hydroxide (Milk Of Magnesia Susp) 30 ml Q12H PRN PO 10/14/16 13:45 11/13/16 13:44 Ondansetron HCl (Zofran Inj) 4 mg Q6H PRN IV 10/14/16 13:45 11/13/16 13:44 Atorvastatin Calcium (Lipitor Tab) 20 mg DAILY PO 10/15/16 09:00 11/14/16 08:59 10/17/16 08:50 20 MG Fenofibrate (Tricor Tab) 145 mg DAILY PO 10/15/16 09:00 11/14/16 08:59 10/17/16 08:50 145 MG Sertraline HCl (Zoloft Tab) 50 mg DAILY PO 10/15/16 09:00 11/14/16 08:59 10/17/16 08:50 50 MG Calcium/Vitamin D (Caltrate Plus Tab) 1 tab BID PO 10/14/16 21:00 11/13/16 20:59 10/17/16 08:49 1 TAB Albuterol/ Ipratropium (Duoneb) 3 ml Q4R PRN INH 10/14/16 15:45 Levofloxacin (Consult) 1 ea UD PRN N/A 10/14/16 16:15 10/20/16 23:59 Potassium Chloride (Klor-Con Tab) 20 meq QAM PO 10/15/16 09:00 11/14/16 08:59 10/17/16 08:51 20 MEQ Vancomycin HCl (Vancomycin Oral Soln) 125 mg QID PO 10/15/16 09:00 11/03/16 23:59 10/17/16 17:04 125 MG Raspberry (Raspberry Syrup 5ml Cup) 5 ml QID PO 10/15/16 09:00 11/03/16 23:59 10/17/16 17:04 5 ML Lactobacillus Acidophilus (Floranex Tab) 4 tab TIDM PO 10/15/16 07:30 11/14/16 07:29 10/17/16 17:04 4 TAB Enteral Nutritional Formula 1 can 1 can TID PO 10/15/16 14:00 11/14/16 13:59 10/17/16 14:21 1 CAN Levofloxacin/Prmx (Levaquin / D5W/ Premixed D5W) 150 ml @ 100 mls/hr Q2D@1200 IV 10/16/16 12:00 10/20/16 23:59 10/16/16 13:02 100 MLS/HR Lorazepam (Ativan Tab) 0.25 mg Q4H PRN PO 10/15/16 23:30 11/14/16 23:29 10/16/16 22:16 0.25 MG Vancomycin HCl (Consult) 1 ea UD PRN N/A 10/15/16 23:30 11/14/16 23:29 Piperacillin Sod/ Tazobactam Sod (Consult) 1 ea UD PRN N/A 10/16/16 00:30 11/15/16 00:29 Aspirin 325 mg 325 mg QAM PO 10/17/16 09:00 11/16/16 08:59 10/17/16 08:50 325 MG Piperacillin Sod/ Tazobactam Sod 3.375 gm/Dextrose 115 ml @ 28.75 mls/ hr Q8H IV 10/16/16 04:00 10/21/16 23:59 10/17/16 12:36 28.75 MLS/HR Heparin Sodium/ Dextrose 500 ml @ 18 mls/hr Q24H PRN IV 10/16/16 01:30 11/15/16 01:29 10/16/16 01:38 14 MLS/HR Vancomycin HCl/ Sodium Chloride (Vancomycin Inj/ Nss 250ml) 265 ml @ 125 mls/hr Q24H IV 10/16/16 16:00 10/21/16 23:59 10/17/16 17:04 125 MLS/HR Famotidine (Pepcid Tab) 20 mg BID PO 10/16/16 21:00 11/15/16 20:59 10/17/16 08:50 20 MG Metoprolol Tartrate (Lopressor Tab) 25 mg TID PO 10/17/16 14:00 11/16/16 13:59 10/17/16 14:22 25 MG Nitroglycerin (Nitroglycerin 2% Oint) 1.5 inch Q6H EXT 10/17/16 13:00 11/16/16 12:59 10/17/16 12:36 1.5 INCH Objective Vital Signs Date Time Temp Pulse Resp B/P Pulse Ox O2 Delivery O2 Flow Rate FiO2 10/17/16 16:00 36.9 88 20 154/84 90 High Flow Oxygen 50.0 60 10/17/16 16:00 High Flow Oxygen 50.0 60 10/17/16 14:45 86 30 127/66 90 High Flow Oxygen 50.0 60 10/17/16 12:00 High Flow Oxygen 50.0 60 10/17/16 12:00 93 18 131/60 92 High Flow Oxygen 50.0 60 10/17/16 10:12 87 20 147/80 89 High Flow Oxygen 50.0 60 10/17/16 08:00 89 24 158/85 90 High Flow Oxygen 50.0 60 10/17/16 08:00 High Flow Oxygen 60 10/17/16 08:00 High Flow Oxygen 50.0 60 10/17/16 06:00 87 25 150/90 93 High Flow Oxygen 60 10/17/16 04:00 36.8 87 26 121/91 96 CPAP 60 148/87 10/17/16 04:00 99 CPAP 60 10/17/16 03:40 85 98 60 10/17/16 02:00 78 22 159/85 96 CPAP 60 10/17/16 00:00 37.0 75 26 149/86 98 CPAP 60 10/16/16 23:59 100 CPAP 60 10/16/16 22:26 78 92 60 10/16/16 22:00 82 24 155/86 95 High Flow Oxygen 70 10/16/16 20:01 36.4 92 22 154/84 87 High Flow Oxygen 60 138/95 10/16/16 20:00 92 High Flow Oxygen 70 10/16/16 18:20 36.8 92 24 145/70 92 CPAP 60 Physical Exam General Appearance: no apparent distress Respiratory/Chest: lungs clear, normal breath sounds, no respiratory distress, no accessory muscle use Cardiovascular: regular rate, rhythm, no edema, no murmur Abdomen: normal bowel sounds, non tender, soft Extremities: normal inspection, no pedal edema Neurologic/Psychiatric: no motor/sensory deficits, alert, normal mood/affect Laboratory Results Last 24 Hours Test 10/17/16 05:19 10/17/16 05:50 10/17/16 12:05 10/17/16 15:40 White Blood Count 12.32 K/uL Red Blood Count 3.48 M/uL Hemoglobin 9.3 g/dL Hematocrit 26.4 % Mean Corpuscular Volume 75.9 fL Mean Corpuscular Hemoglobin 26.7 pg Mean Corpuscular Hemoglobin Concent 35.2 g/dl Platelet Count 303 K/uL Mean Platelet Volume 8.7 fL Neutrophils (%) (Auto) 90.6 % Lymphocytes (%) (Auto) 4.5 % Monocytes (%) (Auto) 3.3 % Eosinophils (%) (Auto) 0.6 % Basophils (%) (Auto) 0.1 % Neutrophils # (Auto) 11.17 K/uL Lymphocytes # (Auto) 0.55 K/uL Monocytes # (Auto) 0.41 K/uL Eosinophils # (Auto) 0.07 K/uL Basophils # (Auto) 0.01 K/uL RDW Standard Deviation 42.3 fL RDW Coefficient of Variation 15.1 % Immature Granulocyte % (Auto) 0.9 % Immature Granulocyte # (Auto) 0.11 K/uL Nucleated RBC Absolute Count (auto) 0.02 K/uL Nucleated Red Blood Cells % 0.1 % Red Blood Cell Morphology Unremarkable Activated Partial Thromboplast Time 43.7 SECONDS 46.4 SECONDS Partial Thromboplastin Ratio 1.7 1.8 Sodium Level 134 mmol/L 133 mmol/L Potassium Level 3.5 mmol/L 3.3 mmol/L Chloride Level 98 mmol/L 97 mmol/L Carbon Dioxide Level 25 mmol/L 26 mmol/L Anion Gap 11.0 mmol/L 10.0 mmol/L Blood Urea Nitrogen 16 mg/dl 14 mg/dl Creatinine 0.81 mg/dl 0.82 mg/dl Est Creatinine Clear Calc Drug Dose 41.8 ml/min 41.2 ml/min Estimated GFR () 85.9 84.6 Estimated GFR (Non- 74.1 73.0 BUN/Creatinine Ratio 19.1 17.1 Random Glucose 106 mg/dl 133 mg/dl Calcium Level 8.8 mg/dl 8.4 mg/dl Phosphorus Level 2.2 mg/dl 3.6 mg/dl Magnesium Level 1.8 mg/dl 2.2 mg/dl Total Bilirubin 0.5 mg/dl Direct Bilirubin 0.2 mg/dl Aspartate Amino Transf (AST/SGOT) 31 U/L Alanine Aminotransferase (ALT/SGPT) 29 U/L Alkaline Phosphatase 164 U/L Troponin I 1.080 ng/ml Total Protein 6.1 gm/dl Albumin 1.9 gm/dl Globulin 4.2 gm/dl Albumin/Globulin Ratio 0.5 Blood Gas Sample Site L Radial Bedside Blood Gas pH (LAB) 7.46 Bedside Blood Gas pCO2 (LAB) 36 mmHg Bedside Blood Gas pO2 (LAB) 80 mmHg Bedside Blood Gas HCO3 (LAB) 26 meq/L Bedside Blood Gas Total CO2 27 mEq/l Bedside Blood Gas Base Excess (LAB) 2.0 meq/L Bedside Blood Gas O2 Saturation 97.0 % Remi Test Pass Oxygen Delivery Device BIPAP Bedside FiO2 60 % Random Vancomycin Level 5.2 mcg/ml Assessment and Plan This is a 71 year old female with PMH of depression/anxiety, tobacco use disorder presents with pneumonia Sepsis secondary to Right Upper Lobe Pneumonia presented with fever, leukocytosis, tachycardia CXR - RUL pneumonia IV Vanco and IV Zosyn started currently on high flow oxygen, saturating well Denies significant shortness of breath today Ongoing tobacco use - 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 Diff Colitis continue PO vanco as per GI, appreciate input total of 14 days Acute Kidney Injury, resolved dehydration related creat from 2.0 to < 1.0 Hyperlipidemia Continue statin History Anxiety/Depression continue home medications DVT ppx SCDs FULL CODE
[2016-10-17 19:36] LABS: PARTIAL THROMBOPLASTIN RATIO 1.6
[2016-10-17] MEDS ORDERED: HEPARIN IV BOLUS 3,000 UNIT in SYRINGE 0 ML IV ONE (20:30)
[2016-10-17] MEDS: HEPARIN 25,000 UNIT/500ML D5W 500 ML IV PRN (20:42)
[2016-10-18] VITALS (14 sets, daily range): BP systolic 91–154; BP diastolic 60–82; PULSE 77–88; TEMP 36.8–37.5; O2SAT 85–100
[2016-10-18] MEDS: NITROGLYCERIN OINT 2% 1GM PACKET EXT SCH ×4 (00:39→19:00)
[2016-10-18] MEDS ORDERED: BENZONATATE 100MG CAP PO PRN (03:30)
[2016-10-18] MEDS: PIPERACILL/TAZOBAC IV 3.375 GM in DEXTROSE 5% 100ML IV SCH (03:38)
[2016-10-18] MEDS: GUAIFENESIN SUGAR FREE 100 MG/5 ML UDC PO PRN (04:52)
[2016-10-18 07:40] LABS: HEMATOCRIT 24.5 % (37-47); MEAN CELL VOLUME 78.5 fL (80-100); MEAN CORPUSCULAR HEMOGLOBIN 26.6 pg (25-34); MEAN CORPUSCULAR HGB CONC 33.9 g/dl (32-36); MEAN PLATELET VOLUME 9.1 fL (7.4-10.4); PLATELET COUNT 312 K/uL (130-400); RED BLOOD COUNT 3.12 M/uL (4.2-5.4); WHITE BLOOD COUNT 13.32 K/uL (4.8-10.8)
[2016-10-18] MEDS ORDERED: VANCOMYCIN INJ 750 MG in SODIUM CHLORIDE 0.9% 250ML 250 ML IV SCH (08:00)
[2016-10-18] MEDS: SERTRALINE HCL 50 MG TAB PO SCH (08:09)
[2016-10-18] MEDS: VANCOMYCIN HCL 125 MG/2.5ML SOLN PO SCH ×4 (08:09→20:50)
[2016-10-18] MEDS: BOOST PLUS VANILLA PO SCH ×6 (08:09→20:55)
[2016-10-18] MEDS: ATORVASTATIN 20 MG TAB PO SCH (08:09)
[2016-10-18] MEDS: RASPBERRY SYRUP 5 ML UDP PO SCH ×4 (08:09→20:50)
[2016-10-18] MEDS: CALCIUM 600MG + VIT D 400 IU TAB PO SCH ×2 (08:10→20:50)
[2016-10-18] MEDS: FENOFIBRATE 145 MG TAB PO SCH (08:10)
[2016-10-18] MEDS: LACTOBACILLUS ACIDOPHILUS (FLORANEX) TAB PO SCH ×3 (08:10→16:51)
[2016-10-18] MEDS: ASPIRIN 325 MG ECTAB PO SCH (08:10)
[2016-10-18] MEDS: POTASSIUM CHLORIDE 20 MEQ TABCR PO SCH (08:10)
[2016-10-18] MEDS: FAMOTIDINE 20 MG TAB PO SCH ×2 (08:11→20:50)
[2016-10-18] MEDS: METOPROLOL TARTRATE 25 MG TAB PO SCH ×3 (08:11→16:50)
[2016-10-18 08:24] LABS: BUN/CREATININE RATIO 19.9 (10-20); CALCIUM 8.4 mg/dl (8.5-10.1); CREATININE 0.7 mg/dl (0.60-1.20); MAGNESIUM 1.7 mg/dl (1.8-2.4); POTASSIUM 3.8 mmol/L (3.5-5.1)
--- NOTE | 2016-10-18 09:58 | Clinical Documentation Query ---
CLINICAL DOCUMENTATION QUERY Query #1/2 71 year old female who presents to the Emergency Room with complaints of a persistent cough. Reports subjective fever and chills. She was diagnosed with RUL Pneumonia and has since gotten worse. On presentation she was leukocytotic 23.36, in ARF (creatinine 2.00), and demonstrated some minor hypotension (106/58). H&P makes reference to this patient being in sepsis but then is not repeated until day 4 of stay. 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 In your clinical opinion is this patient being managed for: ( X ) Early Sepsis POA ( ) Sepsis occurring after admission (not POA) Query #2/2 71 year old female with worsening pneumonia. In your clinical opinion is this patient being managed for: ( ) Likely Staphylococcal Pneumonia ( ) Likely Gram Negative Pneumonia ( ) Possible Aspiration Pneumonia 2/2 to recent vomiting. ( ) Other explanation of clinical findings (Please Explain) ( ) Unable to determine (Please Define) ( ) Need to Discuss ( ) Not Agree The medical record reflects the following clinical findings, treatment, and risk factors. Clinical Indicators: +N&V. Leukocytosis 20.36, Worsening pneumonia by CXR with RUL consolidation since admission. Treatment: IV Vancomycin, IV Levofloxacin, IV Zosyn Risk Factors: Age, COPD, N/V, failure of initial treatment, Please clarify and document your clinical opinion in the progress notes and discharge summary. Terms such as "probable", "suspected", "likely", "questionable", "possible", or "still to be ruled out" are acceptable. IF IN AGREEMENT, YOU MUST DOCUMENT ABOVE DIAGNOSTIC STATEMENT IN DAILY PROGRESS NOTES AND DISCHARGE SUMMARY. This document is not part of the patient's record. Thank You, Ramakrishna Olivares, RN [phone]
--- NOTE | 2016-10-18 10:36 | PROGRESS NOTE ---
DATE: 10/18/2016 The patient seen and examined. Chart, medications, telemetry reviewed. SUBJECTIVE: The patient demonstrates clinical improvement gradually. Still has a wheezy cough. Notes no chest pains. Notes no dizziness or lightheadedness. Notes no syncope or near syncope. She is still requiring significant oxygen demands. OBJECTIVE: VITAL SIGNS: Heart rate is 81, blood pressure 141/74. NECK: Thin. There is no jugular venous distention. LUNGS: Reveal markedly diminished breath sounds with diffuse wheezes on forced cough. CARDIOVASCULAR: Regular. There is no S3 gallop. ABDOMEN: Soft. EXTREMITIES: Without cyanosis or clubbing. There is no peripheral edema. LABORATORY DATA: Sodium is 135, potassium is 3.8, chloride is 99, bicarbonate is 25, BUN is 14, creatinine 0.7, glucose is 119, hemoglobin is 8.3, white cell count is 13.3. Iron study was 17. IMPRESSION: 1. A 71-year-old female admitted with acute pneumonia sepsis with respiratory failure. 2. Non-ST segment elevation myocardial infarction secondary to demand based ischemia. 3. Microcytic anemia. 4. History of Clostridium difficile positive, possible colitis. RECOMMENDATIONS: Will continue current beta zelda and nitrate therapies. Heart rate and blood pressure coming under control. IV heparin will be discontinued. EKG repeated today. Ultimate goals will be stabilization on optimal medical therapy, then stress testing once pulmonary status is stabilized. Will continue to follow the patient in hospital.
--- NOTE | 2016-10-18 10:55 | Progress Note ---
Subjective Date of Service: Oct 18, 2016. Subjective Pt evaluation today including: conversation w/ patient, physical exam, lab review, review of studies, review of inpatient medication list Saw/examined the patient in room 108 Seated in a chair Denies chest pain +cough with deep inhalation Problem List Medical Problems: (1) JAMARI (acute kidney injury) Status: Acute (2) COPD (chronic obstructive pulmonary disease) Status: Acute (3) Elevated alkaline phosphatase level Status: Acute (4) Hypoalbuminemia Status: Acute (5) Hypokalemia Status: Acute (6) Hypomagnesemia Status: Acute (7) Hyponatremia Status: Acute (8) Nausea, vomiting, and diarrhea Status: Acute (9) Right upper lobe pneumonia Status: Acute (10) Vomiting Status: Acute Review of Systems Constitutional: No chills, No fever Respiratory: + cough, No shortness of breath, No sputum Cardiac: No chest pain, No edema, No palpitations Abdomen: + diarrhea, No GI bleeding, No constipation, No nausea, No pain, No vomiting Female : No dysuria, No urinary frequency Medications Current Inpatient Medications Medications (Trade) Dose Ordered Sig/Jarrod Route Start Time Stop Time Status Last Admin Dose Admin Acetaminophen (Tylenol Tab) 650 mg Q4H PRN PO 10/14/16 13:45 11/13/16 13:44 10/16/16 13:41 650 MG Al Hydrox/Mg Hydrox/Simethicone (Maalox Max Susp) 15 ml Q4H PRN PO 10/14/16 13:45 11/13/16 13:44 Magnesium Hydroxide (Milk Of Magnesia Susp) 30 ml Q12H PRN PO 10/14/16 13:45 11/13/16 13:44 Ondansetron HCl (Zofran Inj) 4 mg Q6H PRN IV 10/14/16 13:45 11/13/16 13:44 Atorvastatin Calcium (Lipitor Tab) 20 mg DAILY PO 10/15/16 09:00 11/14/16 08:59 10/18/16 08:09 20 MG Fenofibrate (Tricor Tab) 145 mg DAILY PO 10/15/16 09:00 11/14/16 08:59 10/18/16 08:10 145 MG Sertraline HCl (Zoloft Tab) 50 mg DAILY PO 10/15/16 09:00 11/14/16 08:59 2/1/17 08:09 50 MG Calcium/Vitamin D (Caltrate Plus Tab) 1 tab BID PO 10/14/16 21:00 11/13/16 20:59 10/18/16 08:10 1 TAB Albuterol/ Ipratropium (Duoneb) 3 ml Q4R PRN INH 10/14/16 15:45 Levofloxacin (Consult) 1 ea UD PRN N/A 10/14/16 16:15 10/20/16 23:59 Potassium Chloride (Klor-Con Tab) 20 meq QAM PO 10/15/16 09:00 11/14/16 08:59 10/18/16 08:10 20 MEQ Vancomycin HCl (Vancomycin Oral Soln) 125 mg QID PO 10/15/16 09:00 11/03/16 23:59 10/18/16 08:09 125 MG Raspberry (Raspberry Syrup 5ml Cup) 5 ml QID PO 10/15/16 09:00 11/03/16 23:59 10/18/16 08:09 5 ML Lactobacillus Acidophilus (Floranex Tab) 4 tab TIDM PO 10/15/16 07:30 11/14/16 07:29 10/18/16 08:10 4 TAB Enteral Nutritional Formula 1 can 1 can TID PO 10/15/16 14:00 11/14/16 13:59 10/18/16 08:09 1 CAN Levofloxacin/Prmx (Levaquin / D5W/ Premixed D5W) 150 ml @ 100 mls/hr Q2D@1200 IV 10/16/16 12:00 10/20/16 23:59 10/16/16 13:02 100 MLS/HR Lorazepam (Ativan Tab) 0.25 mg Q4H PRN PO 10/15/16 23:30 11/14/16 23:29 10/16/16 22:16 0.25 MG Vancomycin HCl (Consult) 1 ea UD PRN N/A 10/15/16 23:30 11/14/16 23:29 Piperacillin Sod/ Tazobactam Sod (Consult) 1 ea UD PRN N/A 10/16/16 00:30 11/15/16 00:29 Aspirin 325 mg 325 mg QAM PO 10/17/16 09:00 11/16/16 08:59 10/18/16 08:10 325 MG Piperacillin Sod/ Tazobactam Sod/ Dextrose (Zosyn Iv/D5 100ml) 115 ml @ 28.75 mls/ hr Q8H IV 10/16/16 04:00 10/21/16 23:59 10/18/16 03:38 28.75 MLS/HR Famotidine (Pepcid Tab) 20 mg BID PO 10/16/16 21:00 11/15/16 20:59 10/18/16 08:11 20 MG Nitroglycerin 1.5 inch 1.5 inch Q6H EXT 10/17/16 13:00 11/16/16 12:59 10/18/16 08:09 1.5 INCH Vancomycin HCl/ Sodium Chloride (Vancomycin Inj/ Nss 250ml) 265 ml @ 125 mls/hr Q16H IV 10/18/16 08:00 10/21/16 23:59 10/18/16 08:08 125 MLS/HR Guaifenesin (Robitussin Sugar Free Syrup) 100 mg Q6H PRN PO 10/18/16 03:45 11/17/16 03:44 10/18/16 04:52 100 MG Metoprolol Tartrate (Lopressor Tab) 50 mg BID17 PO 10/18/16 11:00 11/17/16 10:59 Objective Vital Signs Date Time Temp Pulse Resp B/P Pulse Ox O2 Delivery O2 Flow Rate FiO2 10/18/16 10:23 87 20 151/82 90 High Flow Oxygen 50.0 60 10/18/16 08:00 81 24 141/74 93 High Flow Oxygen 50.0 60 10/18/16 08:00 High Flow Oxygen 50.0 60 10/18/16 06:00 80 27 132/65 97 High Flow Oxygen 50.0 60 10/18/16 04:00 78 27 138/68 100 High Flow Oxygen 50.0 60 10/18/16 04:00 99 High Flow Oxygen 60 10/18/16 02:06 84 26 152/69 99 High Flow Oxygen 50.0 60 10/18/16 00:00 37.5 79 24 127/63 99 High Flow Oxygen 50.0 60 10/17/16 23:59 99 High Flow Oxygen 60 10/17/16 22:00 88 24 144/73 97 High Flow Oxygen 50.0 60 10/17/16 20:00 96 High Flow Oxygen 60 10/17/16 20:00 37.3 93 22 135/72 95 High Flow Oxygen 50.0 60 10/17/16 18:34 91 20 172/98 94 High Flow Oxygen 50.0 60 10/17/16 16:00 36.9 88 20 154/84 90 High Flow Oxygen 50.0 60 10/17/16 16:00 High Flow Oxygen 50.0 60 10/17/16 14:45 86 30 127/66 90 High Flow Oxygen 50.0 60 10/17/16 12:00 High Flow Oxygen 50.0 60 10/17/16 12:00 93 18 131/60 92 High Flow Oxygen 50.0 60 Physical Exam General Appearance: no apparent distress Respiratory/Chest: no respiratory distress, no accessory muscle use, + decreased breath sounds Cardiovascular: regular rate, rhythm, no edema, no murmur Abdomen: normal bowel sounds, non tender, soft Extremities: normal inspection, no pedal edema Neurologic/Psychiatric: no motor/sensory deficits, alert, normal mood/affect Laboratory Results Last 24 Hours Test 10/17/16 12:05 10/17/16 15:40 10/17/16 19:15 10/18/16 02:14 Activated Partial Thromboplast Time 46.4 SECONDS 40.6 SECONDS 52.3 SECONDS Partial Thromboplastin Ratio 1.8 1.6 2.0 Sodium Level 133 mmol/L Potassium Level 3.3 mmol/L Chloride Level 97 mmol/L Carbon Dioxide Level 26 mmol/L Anion Gap 10.0 mmol/L Blood Urea Nitrogen 14 mg/dl Creatinine 0.82 mg/dl Est Creatinine Clear Calc Drug Dose 41.2 ml/min Estimated GFR () 84.6 Estimated GFR (Non- 73.0 BUN/Creatinine Ratio 17.1 Random Glucose 133 mg/dl Calcium Level 8.4 mg/dl Phosphorus Level 3.6 mg/dl Magnesium Level 2.2 mg/dl Random Vancomycin Level 5.2 mcg/ml Test 10/18/16 07:25 White Blood Count 13.32 K/uL Red Blood Count 3.12 M/uL Hemoglobin 8.3 g/dL Hematocrit 24.5 % Mean Corpuscular Volume 78.5 fL Mean Corpuscular Hemoglobin 26.6 pg Mean Corpuscular Hemoglobin Concent 33.9 g/dl RDW Standard Deviation 44.5 fL RDW Coefficient of Variation 15.4 % Platelet Count 312 K/uL Mean Platelet Volume 9.1 fL Sodium Level 135 mmol/L Potassium Level 3.8 mmol/L Chloride Level 99 mmol/L Carbon Dioxide Level 25 mmol/L Anion Gap 11.0 mmol/L Blood Urea Nitrogen 14 mg/dl Creatinine 0.70 mg/dl Est Creatinine Clear Calc Drug Dose 49.0 ml/min Estimated GFR () 102.5 Estimated GFR (Non- 88.4 BUN/Creatinine Ratio 19.9 Random Glucose 119 mg/dl Calcium Level 8.4 mg/dl Phosphorus Level 2.6 mg/dl Magnesium Level 1.7 mg/dl Assessment and Plan This is a 71 year old female with PMH of depression/anxiety, tobacco use disorder presents with pneumonia Sepsis secondary to Right Upper Lobe Pneumonia 10/18 At this point, continue Vanco/zosyn she is still on high flow oxygen continue nebulizers and oxygen use states she does not need a nicotine patch afebrile, no tachycardia, hemodynamically stable leukocytosis persists 10/17 presented with fever, leukocytosis, tachycardia CXR - RUL pneumonia IV Vanco and IV Zosyn started currently on high flow oxygen, saturating well Denies significant shortness of breath today Ongoing tobacco use - will savings counselor on tobacco cessation prior to discharge Elevated Troponin 10/18 appreciate cardiology input IV heparin stopped dose of b-zelda adjusted to 50mg BID 10/17 demand ischemic/infection related appreciate cardiology input continue IV heparin for today b-zelda dose increased nitro paste dose increased monitor on tele monitoring keep K > 4 C. Diff Colitis continue PO vanco as per GI, appreciate input total of 14 days Acute Kidney Injury, resolved dehydration related creat from 2.0 to < 1.0 Hyperlipidemia Continue statin History Anxiety/Depression continue home medications DVT ppx SCDs FULL CODE
[2016-10-18] MEDS ORDERED: MAGNESIUM SULFATE 1GM / D5W 1 GM in PREMIXED IN D5W 100 ML IV ONE (11:00)
[2016-10-18] MEDS: LEVOFLOXACIN / D5W 750 MG in PREMIXED IN D5W 150 ML IV SCH (12:36)
[2016-10-18] MEDS ORDERED: POTASSIUM PHOS 3 MMOL/1 ML INFUSION IV STA (12:56)
[2016-10-18] MEDS ORDERED: MAGNESIUM SULFATE 1GM / D5W 1 GM in PREMIXED IN D5W 100 ML IV STA (13:15)
--- NOTE | 2016-10-18 13:25 | Gastroenterology Progress Note ---
Progress Note Date of Service: Oct 18, 2016 Subjective Pt evaluation today including: conversation w/ patient, conversation w/ family , physical exam, chart review, lab review, review of studies, review of inpatient medication list Ms. Pagan is a 71 yr old female admitted 10/14 for pneumonia. GI was consulted yesterday for elevated LFTs and C-diff. LFTs are improving: AST 76 on arrival, today 31. Alk phos on arrival 225, now 164. Bili is normal. C-diff positive, treated with Vanco po. Frequency and volume of diarrhea are improved. F/u C-diff stool (-). Review of Systems Constitutional: No fever Respiratory: + cough, + problem reported (O2 by NC at 6L/min), + shortness of breath (improving), + wheezing Cardiac: No chest pain Abdomen: + diarrhea (improving), No nausea, No pain, No vomiting Female : No dysuria Neuro: No memory loss Psych: No depression symptoms Endo: No fatigue Skin: No jaundice, No rash Medications Current Inpatient Medications Medications (Trade) Dose Ordered Sig/Jarrod Route Start Time Stop Time Status Last Admin Dose Admin Acetaminophen (Tylenol Tab) 650 mg Q4H PRN PO 10/14/16 13:45 11/13/16 13:44 10/16/16 13:41 650 MG Al Hydrox/Mg Hydrox/Simethicone (Maalox Max Susp) 15 ml Q4H PRN PO 10/14/16 13:45 11/13/16 13:44 Magnesium Hydroxide (Milk Of Magnesia Susp) 30 ml Q12H PRN PO 10/14/16 13:45 11/13/16 13:44 Ondansetron HCl (Zofran Inj) 4 mg Q6H PRN IV 10/14/16 13:45 11/13/16 13:44 Atorvastatin Calcium (Lipitor Tab) 20 mg DAILY PO 10/15/16 09:00 11/14/16 08:59 10/18/16 08:09 20 MG Fenofibrate (Tricor Tab) 145 mg DAILY PO 10/15/16 09:00 11/14/16 08:59 10/18/16 08:10 145 MG Sertraline HCl (Zoloft Tab) 50 mg DAILY PO 10/15/16 09:00 11/14/16 08:59 10/18/16 08:09 50 MG Calcium/Vitamin D (Caltrate Plus Tab) 1 tab BID PO 10/14/16 21:00 11/13/16 20:59 10/18/16 08:10 1 TAB Albuterol/ Ipratropium (Duoneb) 3 ml Q4R PRN INH 10/14/16 15:45 Levofloxacin (Consult) 1 ea UD PRN N/A 10/14/16 16:15 10/20/16 23:59 Potassium Chloride (Klor-Con Tab) 20 meq QAM PO 10/15/16 09:00 11/14/16 08:59 10/18/16 08:10 20 MEQ Vancomycin HCl (Vancomycin Oral Soln) 125 mg QID PO 10/15/16 09:00 11/03/16 23:59 10/18/16 12:38 125 MG Raspberry (Raspberry Syrup 5ml Cup) 5 ml QID PO 10/15/16 09:00 11/03/16 23:59 10/18/16 12:38 5 ML Lactobacillus Acidophilus (Floranex Tab) 4 tab TIDM PO 10/15/16 07:30 11/14/16 07:29 10/18/16 12:36 4 TAB Enteral Nutritional Formula (Boost Plus Vanilla) 1 can TID PO 10/15/16 14:00 11/14/16 13:59 10/18/16 08:09 1 CAN Lorazepam (Ativan Tab) 0.25 mg Q4H PRN PO 10/15/16 23:30 11/14/16 23:29 10/16/16 22:16 0.25 MG Aspirin (Ecotrin Tab) 325 mg QAM PO 10/17/16 09:00 11/16/16 08:59 10/18/16 08:10 325 MG Famotidine (Pepcid Tab) 20 mg BID PO 10/16/16 21:00 11/15/16 20:59 10/18/16 08:11 20 MG Nitroglycerin (Nitroglycerin 2% Oint) 1.5 inch Q6H EXT 10/17/16 13:00 11/16/16 12:59 10/18/16 12:38 1.5 INCH Guaifenesin (Robitussin Sugar Free Syrup) 100 mg Q6H PRN PO 10/18/16 03:45 11/17/16 03:44 10/18/16 04:52 100 MG Metoprolol Tartrate (Lopressor Tab) 50 mg BID17 PO 10/18/16 11:00 11/17/16 10:59 10/18/16 12:37 25 MG Enoxaparin Sodium (Lovenox Inj) 30 mg QPM SQ 10/18/16 21:00 11/17/16 20:59 Potassium Phosphate 18 mmol 18 mmol NOW STAT IV 10/18/16 12:56 10/18/16 12:57 UNV Magnesium Sulfate/ Prmx (Magnesium Sulfate/Premixed D5W) 100 ml @ 100 mls/hr NOW STAT IV 10/18/16 13:15 10/18/16 14:14 Levofloxacin 750 mg 750 mg Q2D@11 PO 10/20/16 11:00 10/20/16 23:59 Potassium Phosphate/Sodium Chloride (Potassium Phosphate Inj/Nss 500ml) 506 ml @ 168.667 mls/hr TODAY@1400 ONCE IV 10/18/16 14:00 10/18/16 16:59 Objective Vital Signs Date Time Temp Pulse Resp B/P Pulse Ox O2 Delivery O2 Flow Rate FiO2 10/18/16 12:00 77 20 125/60 97 Nasal Cannula 6.0 10/18/16 12:00 Nasal Cannula 6.0 10/18/16 10:23 87 20 151/82 90 High Flow Oxygen 50.0 60 10/18/16 08:00 81 24 141/74 93 High Flow Oxygen 50.0 60 10/18/16 08:00 High Flow Oxygen 60 10/18/16 08:00 High Flow Oxygen 50.0 60 10/18/16 06:00 80 27 132/65 97 High Flow Oxygen 50.0 60 10/18/16 04:00 78 27 138/68 100 High Flow Oxygen 50.0 60 10/18/16 04:00 99 High Flow Oxygen 60 10/18/16 02:06 84 26 152/69 99 High Flow Oxygen 50.0 60 10/18/16 00:00 37.5 79 24 127/63 99 High Flow Oxygen 50.0 60 10/17/16 23:59 99 High Flow Oxygen 60 10/17/16 22:00 88 24 144/73 97 High Flow Oxygen 50.0 60 10/17/16 20:00 96 High Flow Oxygen 60 10/17/16 20:00 37.3 93 22 135/72 95 High Flow Oxygen 50.0 60 10/17/16 18:34 91 20 172/98 94 High Flow Oxygen 50.0 60 10/17/16 16:00 36.9 88 20 154/84 90 High Flow Oxygen 50.0 60 10/17/16 16:00 High Flow Oxygen 50.0 60 10/17/16 14:45 86 30 127/66 90 High Flow Oxygen 50.0 60 Physical Exam General Appearance: no apparent distress Neck: no JVD Respiratory/Chest: + decreased breath sounds, + wheezing Cardiovascular: regular rate, rhythm, no JVD, no murmur Abdomen: non tender, soft Extremities: non-tender Neurologic/Psych: alert, normal mood/affect, oriented x 3 Skin: normal color Laboratory Results Last 24 Hours Test 10/17/16 15:40 10/17/16 19:15 10/18/16 02:14 10/18/16 07:25 Sodium Level 133 mmol/L 135 mmol/L Potassium Level 3.3 mmol/L 3.8 mmol/L Chloride Level 97 mmol/L 99 mmol/L Carbon Dioxide Level 26 mmol/L 25 mmol/L Anion Gap 10.0 mmol/L 11.0 mmol/L Blood Urea Nitrogen 14 mg/dl 14 mg/dl Creatinine 0.82 mg/dl 0.70 mg/dl Est Creatinine Clear Calc Drug Dose 41.2 ml/min 49.0 ml/min Estimated GFR () 84.6 102.5 Estimated GFR (Non- 73.0 88.4 BUN/Creatinine Ratio 17.1 19.9 Random Glucose 133 mg/dl 119 mg/dl Calcium Level 8.4 mg/dl 8.4 mg/dl Phosphorus Level 3.6 mg/dl 2.6 mg/dl Magnesium Level 2.2 mg/dl 1.7 mg/dl Random Vancomycin Level 5.2 mcg/ml Activated Partial Thromboplast Time 40.6 SECONDS 52.3 SECONDS Partial Thromboplastin Ratio 1.6 2.0 White Blood Count 13.32 K/uL Red Blood Count 3.12 M/uL Hemoglobin 8.3 g/dL Hematocrit 24.5 % Mean Corpuscular Volume 78.5 fL Mean Corpuscular Hemoglobin 26.6 pg Mean Corpuscular Hemoglobin Concent 33.9 g/dl RDW Standard Deviation 44.5 fL RDW Coefficient of Variation 15.4 % Platelet Count 312 K/uL Mean Platelet Volume 9.1 fL Liver US on 10/16/16: Mild hepatosplenomegaly. Trace perihepatic and perisplenic ascites Assessment and Plan Ms. Pagan is a 71 yr old female with emphysema, admitted for pneumonia. GI consulted for LFTs: likely elevated from the illness or the antibiotics, but improving and for C-diff, also improving on Vanco. Plan: 1. Finish at least 10 day tx of C-diff with Vanco 125mg QID. 2. Minimize antibiotics use. 3. No further GI w/u and no OP GI f/u required. GI will sign off. Please notify us if new/worsening GI issues. I have seen , examined and agree with the plan as outlined by NEYMAR Mcelroy as above. -exam reveals soft abd
[2016-10-18] MEDS ORDERED: POTASSIUM PHOSPHATE INJ 18 MMOL in SODIUM CHLORIDE 0.9% 500ML 500 ML IV ONE (14:00)
[2016-10-18] MEDS ORDERED: VANCOMYCIN TROUGH SCH (15:30)
[2016-10-18] MEDS: LORAZEPAM 0.5 MG TAB PO PRN (17:30)
--- NOTE | 2016-10-18 17:48 | Critical Care Progress Note ---
Critical Care Progress Note Date of Service Oct 18, 2016. Attending Dr. Tran Subjective 71 y/o F with extensive smoking history and COPD admitted with 4 day history of cough, SOB, diarrhea on 10/14 and treated for RUL pneumonia , hypokalemia, JAMARI and was treated with Levaquin for CAP. She was also found to be have C.diff colitis though she has no recent antibiotic use and was treated with vancomycin PO She was transferred to the ICU with acute worsening resp distress on 10/16 was switched to NC and has zoey doing well denies any chest pain/SOB/palpitations but has some pain along the right side of chest on deep inspiration and coughing. denies any nausea/vomiting or abdominal pain has had several loose stools overnight. denies any fevers/chills Objective GENERAL: Patient is in mild distress , NC HEENT: No acute trauma, normocephalic atraumatic, mucous membranes moist, no nasal congestion, no scleral icterus. NECK: No stridor, no adenopathy, no meningismus, trachea is midline. LUNGS: Clear to auscultation bilaterally, scattered wheezes HEART: Without murmurs gallops or rubs, regular rate and rhythm. ABDOMEN: Soft, nontender, bowel sounds positive, no hernias, no peritonitis. EXTREMITIES: No cyanosis or edema, full range of motion of all the joints without pain or difficulty, no signs for acute trauma. Right UE arterial line NEUROLOGIC: Oriented x 3, no acute motor or sensory deficits, no focal weakness. SKIN: No rash, no jaundice, no diaphoresis. Assessment & Plan 71 y/o F with extensive smoking history and COPD admitted with 4 day history of cough, SOB, diarrhea on 10/14 and treated for RUL pneumonia , hypokalemia, JAMARI She was transferred to the ICU with acute worsening Resp distress overnight with oxygen saturations dropping to 70s on 10/16 She was restarted on broad spectrum abx and started on a heparin drip for a possible pneumonia. Doing well on NC Neuro: h/o Depression: Continue Zoloft Ativan PRN Resp: Acute hypoxic respiratory failure: on NC currently maintain O2 sats >92 RUL pneumonia: - CXR 10/16: Multifocal patchy airspace consolidation is similar to previous and typical for multifocal pneumonia. Extensive emphysema. CXR 10/17: Pulmonary consolidation involving the base the right upper lobe consistent with pneumonia, advanced emphysema - Influenza PCR X2 negative - BC - no growth so far - DC Vancomycin, Zosyn, - Levaquin switched to PO Elevated d-dimer - D-dimer at 930 , PE vs Lung pathology - CTA deferred considering recent JAMARI - Echo : mild hypokinesis of the inferior wall and inferior septum with otherwise preserved wall motion. EF 55-60%. - Venous Doppler US: negative - Heparin drip DC today Cardiovascular: - Elevated troponin NSTEMI: EKG: - Trend troponins: 3.9 -->2.2--->1.75--->1.08 - Aspirin 325 mg - Metoprolol 50 mg BID - Nitro paste 1 1/2 inch q6h - Continue statins [place] [address] on arrival - strict Is and Os GI/FEN: Elevated AST and alkaline phosphatase: - Trending down but continue to monitor - Abdominal US: Mild hepatosplenomegaly. Trace perihepatic and perisplenic ascites. Prior cholecystectomy - Hep C negative - GI consulted - appreciate input - CMV, EBV, Piatt, HSV, SPEP, alpha 1 antitrypsin pending DIET: advance as tolerated Pepcid for GI prophylaxis Renal JAMARI : resolved - Cr at admission at 2--->0.7 today - Is and Os Electrolytes: - Hypokalemia: K at 3.8, 18 Mmol Kphos - Hypomagnesemia : Mg at 1.7, 2 g magnesium ID: Community-acquired pneumonia - Dc broad spectrum abx , will continue Levaquin - Influenza X 2negative C. difficile colitis - Stool WBC negative - Negative salmonella - No recent abx use - PO vancomycin for 14 days after discontinuing other antibiotics - will need to explore other sources/causes of diarrhea Endocrine - Blood sugar within range DVT prophylaxis: - Lovenox - SCDs PT/OT CODE STATUS: Full code Resident Physician Supervision Note: Dr. Bernard Goddard was resident physician during care of patient. I separately evaluated patient and did history and exam. I discussed the case with the resident and generally agree with the findings and plan. Patient continues to improve, discontinued Zosyn and vancomycin, continue Levaquin for 10 day treatment. Continue to increase beta zelda as patient tolerates. Discontinue León, stable for downgraded to telemetry status. Documented By: Elías Tran DO Data Medications: Current Inpatient Medications Medications (Trade) Dose Ordered Sig/Jarrod Route Start Time Stop Time Status Last Admin Dose Admin Acetaminophen (Tylenol Tab) 650 mg Q4H PRN PO 10/14/16 13:45 11/13/16 13:44 10/16/16 13:41 650 MG Al Hydrox/Mg Hydrox/Simethicone (Maalox Max Susp) 15 ml Q4H PRN PO 10/14/16 13:45 11/13/16 13:44 Magnesium Hydroxide (Milk Of Magnesia Susp) 30 ml Q12H PRN PO 10/14/16 13:45 11/13/16 13:44 Ondansetron HCl (Zofran Inj) 4 mg Q6H PRN IV 10/14/16 13:45 11/13/16 13:44 Atorvastatin Calcium (Lipitor Tab) 20 mg DAILY PO 10/15/16 09:00 11/14/16 08:59 10/18/16 08:09 20 MG Fenofibrate (Tricor Tab) 145 mg DAILY PO 10/15/16 09:00 11/14/16 08:59 10/18/16 08:10 145 MG Sertraline HCl (Zoloft Tab) 50 mg DAILY PO 10/15/16 09:00 11/14/16 08:59 10/18/16 08:09 50 MG Calcium/Vitamin D (Caltrate Plus Tab) 1 tab BID PO 10/14/16 21:00 11/13/16 20:59 10/18/16 08:10 1 TAB Albuterol/ Ipratropium (Duoneb) 3 ml Q4R PRN INH 10/14/16 15:45 Levofloxacin (Consult) 1 ea UD PRN N/A 10/14/16 16:15 10/20/16 23:59 Potassium Chloride (Klor-Con Tab) 20 meq QAM PO 10/15/16 09:00 11/14/16 08:59 10/18/16 08:10 20 MEQ Vancomycin HCl (Vancomycin Oral Soln) 125 mg QID PO 10/15/16 09:00 11/03/16 23:59 10/18/16 16:49 125 MG Raspberry (Raspberry Syrup 5ml Cup) 5 ml QID PO 10/15/16 09:00 11/03/16 23:59 10/18/16 16:49 5 ML Lactobacillus Acidophilus (Floranex Tab) 4 tab TIDM PO 10/15/16 07:30 11/14/16 07:29 10/18/16 16:51 4 TAB Enteral Nutritional Formula (Boost Plus Vanilla) 1 can TID PO 10/15/16 14:00 11/14/16 13:59 10/18/16 14:54 1 CAN Lorazepam (Ativan Tab) 0.25 mg Q4H PRN PO 10/15/16 23:30 11/14/16 23:29 10/18/16 17:30 0.25 MG Aspirin (Ecotrin Tab) 325 mg QAM PO 10/17/16 09:00 11/16/16 08:59 10/18/16 08:10 325 MG Famotidine (Pepcid Tab) 20 mg BID PO 10/16/16 21:00 11/15/16 20:59 10/18/16 08:11 20 MG Nitroglycerin (Nitroglycerin 2% Oint) 1.5 inch Q6H EXT 10/17/16 13:00 11/16/16 12:59 10/18/16 12:38 1.5 INCH Guaifenesin (Robitussin Sugar Free Syrup) 100 mg Q6H PRN PO 10/18/16 03:45 11/17/16 03:44 10/18/16 04:52 100 MG Metoprolol Tartrate (Lopressor Tab) 50 mg BID17 PO 10/18/16 11:00 11/17/16 10:59 10/18/16 16:50 50 MG Enoxaparin Sodium (Lovenox Inj) 30 mg QPM SQ 10/18/16 21:00 11/17/16 20:59 Levofloxacin (Levaquin Tab) 750 mg Q2D@11 PO 10/20/16 11:00 10/20/16 23:59 I & O: 24-Hour Column 10/18/16 08:00 Intake Total 2785 ml Output Total 900 ml Balance 1885 ml Vital Signs: Date Time Temp Pulse Resp B/P Pulse Ox O2 Delivery O2 Flow Rate FiO2 10/18/16 17:30 88 24 85 High Flow Oxygen 50.0 45 10/18/16 16:00 36.8 87 20 134/69 90 High Flow Oxygen 50.0 45 10/18/16 15:43 37.5 77 20 97 6.0 10/18/16 12:00 77 20 125/60 97 Nasal Cannula 6.0 10/18/16 12:00 Nasal Cannula 6.0 10/18/16 10:23 87 20 151/82 90 High Flow Oxygen 50.0 60 10/18/16 08:00 81 24 141/74 93 High Flow Oxygen 50.0 60 10/18/16 08:00 High Flow Oxygen 60 10/18/16 08:00 High Flow Oxygen 50.0 60 10/18/16 06:00 80 27 132/65 97 High Flow Oxygen 50.0 60 10/18/16 04:00 78 27 138/68 100 High Flow Oxygen 50.0 60 10/18/16 04:00 99 High Flow Oxygen 60 10/18/16 02:06 84 26 152/69 99 High Flow Oxygen 50.0 60 10/18/16 00:00 37.5 79 24 127/63 99 High Flow Oxygen 50.0 60 10/17/16 23:59 99 High Flow Oxygen 60 10/17/16 22:00 88 24 144/73 97 High Flow Oxygen 50.0 60 10/17/16 20:00 96 High Flow Oxygen 60 10/17/16 20:00 37.3 93 22 135/72 95 High Flow Oxygen 50.0 60 10/17/16 18:34 91 20 172/98 94 High Flow Oxygen 50.0 60 Laboratory Results: Last 24 Hours Test 10/17/16 19:15 10/18/16 02:14 10/18/16 07:25 Activated Partial Thromboplast Time 40.6 SECONDS 52.3 SECONDS Partial Thromboplastin Ratio 1.6 2.0 White Blood Count 13.32 K/uL Red Blood Count 3.12 M/uL Hemoglobin 8.3 g/dL Hematocrit 24.5 % Mean Corpuscular Volume 78.5 fL Mean Corpuscular Hemoglobin 26.6 pg Mean Corpuscular Hemoglobin Concent 33.9 g/dl RDW Standard Deviation 44.5 fL RDW Coefficient of Variation 15.4 % Platelet Count 312 K/uL Mean Platelet Volume 9.1 fL Sodium Level 135 mmol/L Potassium Level 3.8 mmol/L Chloride Level 99 mmol/L Carbon Dioxide Level 25 mmol/L Anion Gap 11.0 mmol/L Blood Urea Nitrogen 14 mg/dl Creatinine 0.70 mg/dl Est Creatinine Clear Calc Drug Dose 49.0 ml/min Estimated GFR () 102.5 Estimated GFR (Non- 88.4 BUN/Creatinine Ratio 19.9 Random Glucose 119 mg/dl Calcium Level 8.4 mg/dl Phosphorus Level 2.6 mg/dl Magnesium Level 1.7 mg/dl
[2016-10-18] MEDS: ENOXAPARIN 30 MG/0.3 ML SYR SQ SCH (20:51)
[2016-10-19] VITALS (14 sets, daily range): BP systolic 101–190; BP diastolic 58–92; PULSE 77–96; TEMP 36.6–37.6; O2SAT 84–97
[2016-10-19] MEDS: NITROGLYCERIN OINT 2% 1GM PACKET EXT SCH ×4 (02:10→19:00)
--- NOTE | 2016-10-19 05:10 | Clinical Documentation Query ---
CLINICAL DOCUMENTATION QUERY Query #/ 71 year old female who presents to the Emergency Room with complaints of a persistent cough. Reports subjective fever and chills. She was diagnosed with RUL Pneumonia and has since gotten worse. On presentation she was leukocytotic 23.36, in ARF (creatinine 2.00), and demonstrated some minor hypotension (106/58). H&P makes reference to this patient being in sepsis but then is not repeated until day 4 of stay. This documentation may be considered not sufficient by a endoscope technician. In your clinical opinion is this patient being managed for: ( ) Early Sepsis POA ( ) Sepsis occurring after admission (not POA) Query #2/3 71 year old female with worsening pneumonia. In your clinical opinion is this patient being managed for: ( ) Likely Staphylococcal Pneumonia ( ) Likely Gram Negative Pneumonia ( ) Possible Aspiration Pneumonia 2/2 to recent vomiting. ( ) Other explanation of clinical findings (Please Explain) ( ) Unable to determine (Please Define) ( ) Need to Discuss ( ) Not Agree The medical record reflects the following clinical findings, treatment, and risk factors. Clinical Indicators: +N&V. Leukocytosis 20.36, Worsening pneumonia by CXR with RUL consolidation since admission. Treatment: IV Vancomycin, IV Levofloxacin, IV Zosyn Risk Factors: Age, COPD, N/V, failure of initial treatment, Query #3/3 The medical record is conflictual between motorboat operator documentation and internal medicine documentation. The medical record is reflecting the following: Elevated Troponin 10/18 appreciate cardiology input IV heparin stopped dose of b-zelda adjusted to 50mg BID 10/17 demand ischemic/infection related appreciate cardiology input continue IV heparin for today b-zelda dose increased nitro paste dose increased monitor on tele monitoring keep K > 4 Mattress Packer is noting on 10/18: Cardiovascular: - Elevated troponin NSTEMI: EKG: - Trend troponins: 3.9 -->2.2--->1.75--->1.08 - Aspirin 325 mg - Metoprolol 50 mg BID - Nitro paste 1 1/2 inch q6h - Continue statins In your clinical opinion is this patient being managed for: ( ) Non-ST elevation (NSTEMI) myocardial infarction type II in setting of sepsis, pneumonia, and respiratory failure. ( ) Patient has not incurred NSTEMI Please clarify and document your clinical opinion in the progress notes and discharge summary. Terms such as "probable", "suspected", "likely", "questionable", "possible", or "still to be ruled out" are acceptable. IF IN AGREEMENT, YOU MUST DOCUMENT ABOVE DIAGNOSTIC STATEMENT IN DAILY PROGRESS NOTES AND DISCHARGE SUMMARY. This document is not part of the patient's record. Thank You, Ramakrishna Olivares, RN [phone]
[2016-10-19 06:13] LABS: HEMATOCRIT 24.5 % (37-47); MEAN CELL VOLUME 78.8 fL (80-100); MEAN CORPUSCULAR HGB CONC 33.1 g/dl (32-36); MEAN PLATELET VOLUME 8.9 fL (7.4-10.4); PLATELET COUNT 335 K/uL (130-400); RED BLOOD COUNT 3.11 M/uL (4.2-5.4)
[2016-10-19 06:21] LABS: PARTIAL THROMBOPLASTIN RATIO 1.2
[2016-10-19 06:38] LABS: BUN/CREATININE RATIO 20.7 (10-20); CALCIUM 8.4 mg/dl (8.5-10.1); CREATININE 0.67 mg/dl (0.60-1.20); MAGNESIUM 1.5 mg/dl (1.8-2.4); POTASSIUM 3.9 mmol/L (3.5-5.1)
[2016-10-19] MEDS: LORAZEPAM 0.5 MG TAB PO PRN ×2 (08:06→16:11)
[2016-10-19] MEDS: VANCOMYCIN HCL 125 MG/2.5ML SOLN PO SCH ×4 (08:07→22:54)
[2016-10-19] MEDS: SERTRALINE HCL 50 MG TAB PO SCH (08:07)
[2016-10-19] MEDS: ASPIRIN 325 MG ECTAB PO SCH (08:07)
[2016-10-19] MEDS: ATORVASTATIN 20 MG TAB PO SCH (08:07)
[2016-10-19] MEDS: FAMOTIDINE 20 MG TAB PO SCH ×2 (08:07→22:55)
[2016-10-19] MEDS: RASPBERRY SYRUP 5 ML UDP PO SCH ×4 (08:07→22:55)
[2016-10-19] MEDS: GUAIFENESIN SUGAR FREE 100 MG/5 ML UDC PO PRN (08:07)
[2016-10-19] MEDS: CALCIUM 600MG + VIT D 400 IU TAB PO SCH ×2 (08:08→22:56)
[2016-10-19] MEDS: BOOST PLUS VANILLA PO SCH ×6 (08:08→21:00)
[2016-10-19] MEDS: METOPROLOL TARTRATE 25 MG TAB PO SCH ×2 (08:08→16:11)
[2016-10-19] MEDS: LACTOBACILLUS ACIDOPHILUS (FLORANEX) TAB PO SCH ×3 (08:08→16:10)
[2016-10-19] MEDS: FENOFIBRATE 145 MG TAB PO SCH (08:09)
[2016-10-19] MEDS: POTASSIUM CHLORIDE 20 MEQ TABCR PO SCH (08:09)
[2016-10-19] MEDS: MAGNESIUM SULFATE 1GM / D5W 1 GM in PREMIXED IN D5W 100 ML IV SCH ×2 (08:29→10:33)
--- NOTE | 2016-10-19 09:07 | Progress Note ---
Subjective Date of Service: Oct 19, 2016. Subjective Pt evaluation today including: conversation w/ patient, physical exam, lab review, review of studies, review of inpatient medication list Saw/examined the patient in room 207 Denies chest pain +shortness of breath, +cough, +sputum +anxious this morning Problem List Medical Problems: (1) JAMARI (acute kidney injury) Status: Acute (2) COPD (chronic obstructive pulmonary disease) Status: Acute (3) Elevated alkaline phosphatase level Status: Acute (4) Hypoalbuminemia Status: Acute (5) Hypokalemia Status: Acute (6) Hypomagnesemia Status: Acute (7) Hyponatremia Status: Acute (8) Nausea, vomiting, and diarrhea Status: Acute (9) Right upper lobe pneumonia Status: Acute (10) Vomiting Status: Acute Review of Systems Constitutional: No chills, No fever Respiratory: + cough, + shortness of breath, + sputum, + wheezing, No dyspnea at rest, No dyspnea on exertion, No hemoptysis Cardiac: No chest pain, No edema, No orthopnea, No palpitations Abdomen: No diarrhea, No nausea, No pain, No vomiting Female : No dysuria, No urinary frequency Heme: No abnormal bleeding/bruising Medications Current Inpatient Medications Medications (Trade) Dose Ordered Sig/Jarrod Route Start Time Stop Time Status Last Admin Dose Admin Acetaminophen (Tylenol Tab) 650 mg Q4H PRN PO 10/14/16 13:45 11/13/16 13:44 10/16/16 13:41 650 MG Al Hydrox/Mg Hydrox/Simethicone (Maalox Max Susp) 15 ml Q4H PRN PO 10/14/16 13:45 11/13/16 13:44 Magnesium Hydroxide (Milk Of Magnesia Susp) 30 ml Q12H PRN PO 10/14/16 13:45 11/13/16 13:44 Ondansetron HCl (Zofran Inj) 4 mg Q6H PRN IV 10/14/16 13:45 11/13/16 13:44 Atorvastatin Calcium (Lipitor Tab) 20 mg DAILY PO 10/15/16 09:00 11/14/16 08:59 10/19/16 08:07 20 MG Fenofibrate (Tricor Tab) 145 mg DAILY PO 10/15/16 09:00 11/14/16 08:59 10/19/16 08:09 145 MG Sertraline HCl (Zoloft Tab) 50 mg DAILY PO 10/15/16 09:00 11/14/16 08:59 10/19/16 08:07 50 MG Calcium/Vitamin D (Caltrate Plus Tab) 1 tab BID PO 10/14/16 21:00 11/13/16 20:59 10/19/16 08:08 1 TAB Albuterol/ Ipratropium (Duoneb) 3 ml Q4R PRN INH 10/14/16 15:45 Levofloxacin (Consult) 1 ea UD PRN N/A 10/14/16 16:15 10/20/16 23:59 Potassium Chloride (Klor-Con Tab) 20 meq QAM PO 10/15/16 09:00 11/14/16 08:59 10/19/16 08:09 20 MEQ Vancomycin HCl (Vancomycin Oral Soln) 125 mg QID PO 10/15/16 09:00 11/03/16 23:59 10/19/16 08:07 125 MG Raspberry (Raspberry Syrup 5ml Cup) 5 ml QID PO 10/15/16 09:00 11/03/16 23:59 10/19/16 08:07 5 ML Lactobacillus Acidophilus (Floranex Tab) 4 tab TIDM PO 10/15/16 07:30 11/14/16 07:29 10/19/16 08:08 4 TAB Enteral Nutritional Formula (Boost Plus Vanilla) 1 can TID PO 10/15/16 14:00 11/14/16 13:59 10/19/16 08:08 1 CAN Lorazepam (Ativan Tab) 0.25 mg Q4H PRN PO 10/15/16 23:30 11/14/16 23:29 10/19/16 08:06 0.25 MG Aspirin (Ecotrin Tab) 325 mg QAM PO 10/17/16 09:00 11/16/16 08:59 10/19/16 08:07 325 MG Famotidine (Pepcid Tab) 20 mg BID PO 10/16/16 21:00 11/15/16 20:59 10/19/16 08:07 20 MG Nitroglycerin (Nitroglycerin 2% Oint) 1.5 inch Q6H EXT 10/17/16 13:00 11/16/16 12:59 10/19/16 08:09 1.5 INCH Guaifenesin (Robitussin Sugar Free Syrup) 100 mg Q6H PRN PO 10/18/16 03:45 11/17/16 03:44 10/19/16 08:07 100 MG Metoprolol Tartrate (Lopressor Tab) 50 mg BID17 PO 10/18/16 11:00 11/17/16 10:59 10/19/16 08:08 50 MG Enoxaparin Sodium (Lovenox Inj) 30 mg QPM SQ 10/18/16 21:00 11/17/16 20:59 10/18/16 20:51 30 MG Levofloxacin 750 mg 750 mg Q2D@11 PO 10/20/16 11:00 10/20/16 23:59 Magnesium Sulfate/ Prmx (Magnesium Sulfate/Premixed D5W) 100 ml @ 100 mls/hr Q1H IV 10/19/16 08:14 10/19/16 10:13 10/19/16 08:29 100 MLS/HR Objective Vital Signs Date Time Temp Pulse Resp B/P Pulse Ox O2 Delivery O2 Flow Rate FiO2 10/19/16 08:17 36.8 96 22 190/92 94 High Flow Oxygen 10/19/16 04:21 36.9 91 22 164/90 89 High Flow Oxygen 10/19/16 04:00 94 High Flow Oxygen 70.0 45 10/19/16 02:09 87 164/82 10/19/16 00:00 90 High Flow Oxygen 60.0 45 10/18/16 23:35 37.2 88 22 154/67 88 High Flow Oxygen 10/18/16 20:00 90 High Flow Oxygen 50.0 45 10/18/16 19:03 37.2 82 18 91/79 91 BiPAP 10/18/16 18:00 BiPAP 10/18/16 17:40 87 94 60 10/18/16 17:30 88 24 85 High Flow Oxygen 50.0 45 10/18/16 16:00 90 High Flow Oxygen 50.0 45 10/18/16 16:00 36.8 87 20 134/69 90 High Flow Oxygen 50.0 45 10/18/16 15:43 37.5 77 20 97 6.0 10/18/16 12:00 77 20 125/60 97 Nasal Cannula 6.0 10/18/16 12:00 Nasal Cannula 6.0 10/18/16 10:23 87 20 151/82 90 High Flow Oxygen 50.0 60 Physical Exam General Appearance: no apparent distress Respiratory/Chest: no respiratory distress, no accessory muscle use, + decreased breath sounds, + wheezing Cardiovascular: regular rate, rhythm, no edema, no murmur Abdomen: normal bowel sounds, non tender, soft Extremities: normal inspection, no pedal edema Neurologic/Psychiatric: no motor/sensory deficits, alert, + pertinent finding ( +anxious) Laboratory Results Last 24 Hours Test 10/19/16 05:42 White Blood Count 12.80 K/uL Red Blood Count 3.11 M/uL Hemoglobin 8.1 g/dL Hematocrit 24.5 % Mean Corpuscular Volume 78.8 fL Mean Corpuscular Hemoglobin 26.0 pg Mean Corpuscular Hemoglobin Concent 33.1 g/dl RDW Standard Deviation 44.8 fL RDW Coefficient of Variation 15.4 % Platelet Count 335 K/uL Mean Platelet Volume 8.9 fL Activated Partial Thromboplast Time 32.2 SECONDS Partial Thromboplastin Ratio 1.2 Sodium Level 136 mmol/L Potassium Level 3.9 mmol/L Chloride Level 99 mmol/L Carbon Dioxide Level 28 mmol/L Anion Gap 9.0 mmol/L Blood Urea Nitrogen 14 mg/dl Creatinine 0.67 mg/dl Est Creatinine Clear Calc Drug Dose 52.8 ml/min Estimated GFR () 103.9 Estimated GFR (Non- 89.7 BUN/Creatinine Ratio 20.7 Random Glucose 111 mg/dl Calcium Level 8.4 mg/dl Magnesium Level 1.5 mg/dl Assessment and Plan This is a 71 year old female with PMH of depression/anxiety, tobacco use disorder presents with pneumonia Sepsis secondary to Right Upper Lobe Pneumonia 2/2 present on admission as this is clearly documented on the H&P currently afebrile, no tachycardia, and hemodynamically stable Now down to Levaquin for antibiotics x 10 days continue nebulizers and oxygen 10/18 At this point, continue Vanco/zosyn she is still on high flow oxygen continue nebulizers and oxygen use states she does not need a nicotine patch afebrile, no tachycardia, hemodynamically stable leukocytosis persists 10/17 presented with fever, leukocytosis, tachycardia CXR - RUL pneumonia IV Vanco and IV Zosyn started currently on high flow oxygen, saturating well Denies significant shortness of breath today Ongoing tobacco use - will financial services counselor on tobacco cessation prior to discharge NSTEMI 10/19 IV heparin is stopped continue aspirin, statin and metoprolol increased lopressor dose to 75mg BID 10/18 appreciate cardiology input IV heparin stopped dose of b-zelda adjusted to 50mg BID 10/17 demand ischemic/infection related appreciate cardiology input continue IV heparin for today b-zelda dose increased nitro paste dose increased monitor on tele monitoring keep K > 4 C. Diff Colitis continue PO vanco as per GI, appreciate input total of 14 days Acute Kidney Injury, resolved dehydration related creat from 2.0 to < 1.0 Hyperlipidemia Continue statin History Anxiety/Depression continue home medications DVT ppx SCDs FULL CODE
[2016-10-19] MEDS ORDERED: METOPROLOL TARTRATE 25 MG TAB PO ONE (09:15)
[2016-10-19] MEDS ORDERED: LISINOPRIL 5 MG TAB PO ONE (09:15)
--- NOTE | 2016-10-19 11:55 | CARDIOLOGY PROGRESS NOTE ---
DATE: 10/19/2016 The patient seen and examined. Chart, medications, telemetry reviewed. SUBJECTIVE: Still requiring significant amounts of oxygen for supplementation. Blood pressures have been running higher today. Notes no chest pain or discomfort. Notes no tachypalpitations. OBJECTIVE: VITAL SIGNS: Heart rate is 96, blood pressure is 190/92. NECK: Thin. There is no distinct jugular venous distention. LUNGS: Notable for diminished breath sounds, scattered wheezes with forced cough. CARDIOVASCULAR: Regular. There is no S3 gallop. ABDOMEN: Soft. EXTREMITIES: Without cyanosis or clubbing. There is no distinct edema. LABORATORY DATA: Sodium is 136, potassium is 3.9, chloride is 99, bicarbonate 28, BUN is 14, creatinine 0.67. White cell count 12.8, hemoglobin is 8.1, hematocrit is 24.5. IMPRESSION: A 71-year-old female admitted with acute respiratory failure secondary to emphysema and superimposed right-sided pneumonia with demand based non-ST segment elevation myocardial infarction. PLAN: As already ordered, upward titration of beta zelda to 75 mg twice per day with metoprolol. Add lisinopril to regimen. May taper back nitrates depending on blood pressure response. Continue aspirin. Will consider for stress testing post-hospital discharge depending on clinical course. Would not allow her anemia to drop much further.
[2016-10-19] MEDS: ENOXAPARIN 30 MG/0.3 ML SYR SQ SCH (22:55)
[2016-10-19 23:38] LABS: ALBUMIN 2.6 G/DL (3.8-4.8); ALPHA-1-ANTITRYPSIN TC 67710E 444 MG/DL (83-199); CYTOMEGALOVIRUS IGG AB 4.45; EBV EARLY ANTIGEN AB 1.44 INDEX; EPSTEIN BARR VIR CAPSID IGG >5.00 INDEX; GAMMA GLOBULIN 0.8 G/DL (0.8-1.7); HERPES SIMPLEX AB IGG-2 0.01; HSV1 AB IGM Negative (Negative); HSV2 AB IGM Negative (Negative); PARVOVIRUS IgG INDEX 10.3 (<0.9); PARVOVIRUS IgM INDEX 0.3 (<0.9); TOTAL PROTEIN 5.7 G/DL (6.2-8.3)
[2016-10-20] MEDS: NITROGLYCERIN OINT 2% 1GM PACKET EXT SCH ×2 (01:02→08:31)
[2016-10-20 01:36] VITALS: BP 137/63; PULSE 82; O2SAT 90
[2016-10-20 04:14] VITALS: BP 144/69; PULSE 80; TEMP 36.9; O2SAT 95
[2016-10-20 07:12] LABS: HEMATOCRIT 24.3 % (37-47); MEAN CELL VOLUME 78.9 fL (80-100); MEAN CORPUSCULAR HEMOGLOBIN 26.3 pg (25-34); MEAN CORPUSCULAR HGB CONC 33.3 g/dl (32-36); MEAN PLATELET VOLUME 9.5 fL (7.4-10.4); PLATELET COUNT 356 K/uL (130-400); RED BLOOD COUNT 3.08 M/uL (4.2-5.4); WHITE BLOOD COUNT 11.32 K/uL (4.8-10.8)
[2016-10-20 07:45] VITALS: BP 140/71; PULSE 86; TEMP 36.9; O2SAT 91
[2016-10-20 07:45] LABS: BUN/CREATININE RATIO 24.6 (10-20); CALCIUM 8.5 mg/dl (8.5-10.1); CREATININE 0.63 mg/dl (0.60-1.20); MAGNESIUM 1.7 mg/dl (1.8-2.4); POTASSIUM 3.4 mmol/L (3.5-5.1)
[2016-10-20] MEDS: CALCIUM 600MG + VIT D 400 IU TAB PO SCH ×2 (08:31→21:17)
[2016-10-20] MEDS: FAMOTIDINE 20 MG TAB PO SCH ×2 (08:31→21:17)
[2016-10-20] MEDS: FENOFIBRATE 145 MG TAB PO SCH (08:31)
[2016-10-20] MEDS: LACTOBACILLUS ACIDOPHILUS (FLORANEX) TAB PO SCH ×3 (08:32→17:30)
[2016-10-20] MEDS: ATORVASTATIN 20 MG TAB PO SCH (08:32)
[2016-10-20] MEDS: ASPIRIN 325 MG ECTAB PO SCH (08:32)
[2016-10-20] MEDS: VANCOMYCIN HCL 125 MG/2.5ML SOLN PO SCH ×4 (08:32→21:17)
[2016-10-20] MEDS: RASPBERRY SYRUP 5 ML UDP PO SCH ×4 (08:32→21:17)
[2016-10-20] MEDS: METOPROLOL TARTRATE 25 MG TAB PO SCH ×2 (08:32→17:30)
[2016-10-20] MEDS: BOOST PLUS VANILLA PO SCH ×6 (08:32→21:18)
[2016-10-20] MEDS: SERTRALINE HCL 50 MG TAB PO SCH (08:32)
[2016-10-20] MEDS: POTASSIUM CHLORIDE 20 MEQ TABCR PO SCH (08:33)
[2016-10-20] MEDS ORDERED: POTASSIUM CHLR 10 MEQ / WTR 10 MEQ in PREMIXED WATER 100 ML IV ONE (09:00)
[2016-10-20] MEDS ORDERED: MAGNESIUM SULFATE 1GM / D5W 1 GM in PREMIXED IN D5W 100 ML IV ONE (10:00)
[2016-10-20] MEDS: LISINOPRIL 5 MG TAB PO SCH (10:56)
[2016-10-20] MEDS ORDERED: LEVOFLOXACIN 750 MG TAB PO SCH (11:00)
[2016-10-20 11:05] VITALS: BP 163/71; PULSE 76; TEMP 37.1; O2SAT 92
--- NOTE | 2016-10-20 11:24 | Cardiology Follow-Up ---
Subjective Subjective Date of Service: Oct 20, 2016. Pt evaluation today including: conversation w/ patient, physical exam, chart review, lab review, review of studies, review of inpatient medication list Additional Details: Pt seen and examined, states that she's feeling ok, states that her breathing may have slightly improved. But still requiring high flow O2. Denies cp, palpitations, lightheadedness or dizziness. Tele reviewed: Problem List Medical Problems: (1) JAMARI (acute kidney injury) Status: Acute (2) COPD (chronic obstructive pulmonary disease) Status: Acute (3) Elevated alkaline phosphatase level Status: Acute (4) Hypoalbuminemia Status: Acute (5) Hypokalemia Status: Acute (6) Hypomagnesemia Status: Acute (7) Hyponatremia Status: Acute (8) Nausea, vomiting, and diarrhea Status: Acute (9) Right upper lobe pneumonia Status: Acute (10) Vomiting Status: Acute Review of Systems Constitutional: No chills, No fever Respiratory: + cough, + shortness of breath, + sputum, + wheezing, No dyspnea at rest, No dyspnea on exertion, No hemoptysis Cardiac: No chest pain, No edema, No orthopnea, No palpitations Abdomen: No diarrhea, No nausea, No pain, No vomiting Female : No dysuria, No urinary frequency Neurologic: No memory loss Psychiatric: No depression symptoms Heme: No abnormal bleeding/bruising Endo: No fatigue Objective Vital Signs Last Vital Signs Documentation Date Time Temp Pulse Resp B/P Pulse Ox O2 Delivery O2 Flow Rate FiO2 10/20/16 11:05 37.1 76 24 163/71 92 High Flow Oxygen 10/20/16 04:00 50.0 10/19/16 20:00 80 Physical Exam: General Appearance: WD/WN, no apparent distress Eyes: bilateral eyes EOMI, bilateral eyes PERRL, bilateral eyes normal inspection ENT: normal ENT inspection, hearing grossly normal, pharynx normal Neck: supple, no adenopathy, thyroid normal, no JVD, no carotid bruits, trachea midline Respiratory/Chest: no respiratory distress, no accessory muscle use, + decreased breath sounds, + wheezing Cardiovascular: regular rate, rhythm (but distant unable to appreciate murmurs , rubs or gallops), no edema Abdomen: normal bowel sounds, non tender, soft Extremities: normal inspection, no pedal edema, no calf tenderness Neurologic/Psychiatric: 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 respiratory failure secondary to pneumonia attempting to wean high flow O2 2. elevated troponin likely secondary to increased demand from #1 no chest pain slight inferior wall hypokinesis on echo with preserved LV systolic function , possibly secondary to RV overload will complete ischemic evaluation as outpatient once pulmonary status improves will d/c nitro paste start imdur later today cont metoprolol, atorvastatin and asa cont to monitor on tele
[2016-10-20] MEDS ORDERED: HYDROCODONE/HOMATROPINE SYRUP 5MG/1.5MG 5ML UDP PO PRN (12:15)
--- NOTE | 2016-10-20 12:16 | Progress Note ---
Subjective Date of Service: Oct 20, 2016. Subjective Pt evaluation today including: conversation w/ patient, physical exam, lab review, review of studies, review of inpatient medication list Saw/examined the patient in room 207 +intermittent coughing spells +mild shortness of breath during coughing spells no chest pain, no palpitations Problem List Medical Problems: (1) JAMARI (acute kidney injury) Status: Acute (2) COPD (chronic obstructive pulmonary disease) Status: Acute (3) Elevated alkaline phosphatase level Status: Acute (4) Hypoalbuminemia Status: Acute (5) Hypokalemia Status: Acute (6) Hypomagnesemia Status: Acute (7) Hyponatremia Status: Acute (8) Nausea, vomiting, and diarrhea Status: Acute (9) Right upper lobe pneumonia Status: Acute (10) Vomiting Status: Acute Review of Systems Constitutional: No chills, No fever Respiratory: + cough, + shortness of breath, + sputum, No dyspnea at rest, No dyspnea on exertion, No wheezing Abdomen: No diarrhea, No nausea, No pain, No vomiting Heme: No abnormal bleeding/bruising Medications Current Inpatient Medications Medications (Trade) Dose Ordered Sig/Jarrod Route Start Time Stop Time Status Last Admin Dose Admin Acetaminophen (Tylenol Tab) 650 mg Q4H PRN PO 10/14/16 13:45 11/13/16 13:44 10/16/16 13:41 650 MG Al Hydrox/Mg Hydrox/Simethicone (Maalox Max Susp) 15 ml Q4H PRN PO 10/14/16 13:45 11/13/16 13:44 Magnesium Hydroxide (Milk Of Magnesia Susp) 30 ml Q12H PRN PO 10/14/16 13:45 11/13/16 13:44 Ondansetron HCl (Zofran Inj) 4 mg Q6H PRN IV 10/14/16 13:45 11/13/16 13:44 Atorvastatin Calcium (Lipitor Tab) 20 mg DAILY PO 10/15/16 09:00 11/14/16 08:59 10/20/16 08:32 20 MG Fenofibrate (Tricor Tab) 145 mg DAILY PO 10/15/16 09:00 11/14/16 08:59 10/20/16 08:31 145 MG Sertraline HCl (Zoloft Tab) 50 mg DAILY PO 10/15/16 09:00 11/14/16 08:59 10/20/16 08:32 50 MG Calcium/Vitamin D (Caltrate Plus Tab) 1 tab BID PO 10/14/16 21:00 11/13/16 20:59 10/20/16 08:31 1 TAB Albuterol/ Ipratropium (Duoneb) 3 ml Q4R PRN INH 10/14/16 15:45 Levofloxacin (Consult) 1 ea UD PRN N/A 10/14/16 16:15 10/20/16 23:59 Potassium Chloride (Klor-Con Tab) 20 meq QAM PO 10/15/16 09:00 11/14/16 08:59 10/20/16 08:33 20 MEQ Vancomycin HCl (Vancomycin Oral Soln) 125 mg QID PO 10/15/16 09:00 11/03/16 23:59 10/20/16 08:32 125 MG Raspberry (Raspberry Syrup 5ml Cup) 5 ml QID PO 10/15/16 09:00 11/03/16 23:59 10/20/16 08:32 5 ML Lactobacillus Acidophilus (Floranex Tab) 4 tab TIDM PO 10/15/16 07:30 11/14/16 07:29 10/20/16 08:32 4 TAB Enteral Nutritional Formula (Boost Plus Vanilla) 1 can TID PO 10/15/16 14:00 11/14/16 13:59 10/20/16 08:32 1 CAN Lorazepam (Ativan Tab) 0.25 mg Q4H PRN PO 10/15/16 23:30 11/14/16 23:29 10/19/16 16:11 0.25 MG Aspirin (Ecotrin Tab) 325 mg QAM PO 10/17/16 09:00 11/16/16 08:59 10/20/16 08:32 325 MG Famotidine (Pepcid Tab) 20 mg BID PO 10/16/16 21:00 11/15/16 20:59 10/20/16 08:31 20 MG Guaifenesin (Robitussin Sugar Free Syrup) 100 mg Q6H PRN PO 10/18/16 03:45 11/17/16 03:44 10/19/16 08:07 100 MG Enoxaparin Sodium (Lovenox Inj) 30 mg QPM SQ 10/18/16 21:00 11/17/16 20:59 10/19/16 22:55 30 MG Levofloxacin (Levaquin Tab) 750 mg Q2D@11 PO 10/20/16 11:00 10/20/16 23:59 Metoprolol Tartrate (Lopressor Tab) 75 mg BID17 PO 10/19/16 17:00 11/18/16 16:59 10/20/16 08:32 75 MG Lisinopril (Zestril Tab) 5 mg QAM PO 10/20/16 09:00 11/19/16 08:59 10/20/16 10:56 5 MG Isosorbide Mononitrate (Imdur Ext Rel Tab) 30 mg QAM PO 10/20/16 13:00 11/19/16 12:59 Objective Vital Signs Date Time Temp Pulse Resp B/P Pulse Ox O2 Delivery O2 Flow Rate FiO2 10/20/16 11:05 37.1 76 24 163/71 92 High Flow Oxygen 10/20/16 07:45 36.9 86 24 140/71 91 High Flow Oxygen 10/20/16 04:14 36.9 80 28 144/69 95 10/20/16 04:00 High Flow Oxygen 50.0 10/20/16 01:36 82 30 137/63 90 High Flow Oxygen 10/19/16 23:59 High Flow Oxygen 50.0 10/19/16 23:22 37.0 81 32 168/79 87 High Flow Oxygen 10/19/16 20:00 92 CPAP 80 10/19/16 19:48 37.6 77 30 159/81 97 BiPAP 10/19/16 18:25 87 93 80 10/19/16 16:00 86 High Flow Oxygen 50.0 60 10/19/16 15:36 36.6 83 36 170/69 86 High Flow Oxygen Physical Exam General Appearance: no apparent distress, + thin Respiratory/Chest: no respiratory distress, no accessory muscle use, + decreased breath sounds Cardiovascular: regular rate, rhythm, no edema, no murmur Abdomen: normal bowel sounds, non tender, soft, no organomegaly Extremities: normal inspection, no pedal edema Neurologic/Psychiatric: no motor/sensory deficits, alert, normal mood/affect Laboratory Results Last 24 Hours Test 10/20/16 06:12 White Blood Count 11.32 K/uL Red Blood Count 3.08 M/uL Hemoglobin 8.1 g/dL Hematocrit 24.3 % Mean Corpuscular Volume 78.9 fL Mean Corpuscular Hemoglobin 26.3 pg Mean Corpuscular Hemoglobin Concent 33.3 g/dl RDW Standard Deviation 44.1 fL RDW Coefficient of Variation 15.2 % Platelet Count 356 K/uL Mean Platelet Volume 9.5 fL Activated Partial Thromboplast Time 25.7 SECONDS Partial Thromboplastin Ratio 1.0 Sodium Level 138 mmol/L Potassium Level 3.4 mmol/L Chloride Level 99 mmol/L Carbon Dioxide Level 30 mmol/L Anion Gap 9.0 mmol/L Blood Urea Nitrogen 15 mg/dl Creatinine 0.63 mg/dl Est Creatinine Clear Calc Drug Dose 56.1 ml/min Estimated GFR () 106.1 Estimated GFR (Non- 91.5 BUN/Creatinine Ratio 24.6 Random Glucose 106 mg/dl Calcium Level 8.5 mg/dl Magnesium Level 1.7 mg/dl Assessment and Plan This is a 71 year old female with PMH of depression/anxiety, tobacco use disorder presents with pneumonia Sepsis secondary to Right Upper Lobe Pneumonia 2/3 sepsis is resolved continues to have hypoxic episodes, requiring high flow O2 continue Levaquin added Hycodan PRN nocturnally continue nebulizers may need to add steroids if hypoxia persists PT/OT; plan for rehab / present on admission as this is clearly documented on the H&P currently afebrile, no tachycardia, and hemodynamically stable Now down to Levaquin for antibiotics x 10 days continue nebulizers and oxygen 10/18 At this point, continue Vanco/zosyn she is still on high flow oxygen continue nebulizers and oxygen use states she does not need a nicotine patch afebrile, no tachycardia, hemodynamically stable leukocytosis persists 10/17 presented with fever, leukocytosis, tachycardia CXR - RUL pneumonia IV Vanco and IV Zosyn started currently on high flow oxygen, saturating well Denies significant shortness of breath today Ongoing tobacco use - will counselor aid on tobacco cessation prior to discharge NSTEMI 2/3 aspirin, statin, metoprolol and imdur added today appreciate cardiology input outpatient f/u 2/2 IV heparin is stopped continue aspirin, statin and metoprolol increased lopressor dose to 75mg BID 10/18 appreciate cardiology input IV heparin stopped dose of b-zelda adjusted to 50mg BID 10/17 demand ischemic/infection related appreciate cardiology input continue IV heparin for today b-zelda dose increased nitro paste dose increased monitor on tele monitoring keep K > 4 C. Diff Colitis continue PO vanco as per GI, appreciate input total of 14 days Acute Kidney Injury, resolved dehydration related creat from 2.0 to < 1.0 Hyperlipidemia Continue statin History Anxiety/Depression continue home medications DVT ppx SCDs FULL CODE
[2016-10-20] MEDS: ISOSORBIDE MONONITRATE 30 MG TABCR PO SCH (13:16)
[2016-10-20 15:40] VITALS: BP 150/77; PULSE 87; TEMP 36.6; O2SAT 91
[2016-10-20 19:22] VITALS: BP 149/67; PULSE 81; TEMP 37; O2SAT 92
[2016-10-20] MEDS: ENOXAPARIN 30 MG/0.3 ML SYR SQ SCH (21:18)
[2016-10-21] VITALS (13 sets, daily range): BP systolic 97–168; BP diastolic 50–80; PULSE 71–86; TEMP 36.5–37; O2SAT 88–94
[2016-10-21 06:11] LABS: HEMATOCRIT 23.9 % (37-47); MEAN CELL VOLUME 79.4 fL (80-100); MEAN CORPUSCULAR HEMOGLOBIN 26.2 pg (25-34); MEAN CORPUSCULAR HGB CONC 33.1 g/dl (32-36); MEAN PLATELET VOLUME 9.3 fL (7.4-10.4); PLATELET COUNT 383 K/uL (130-400); RED BLOOD COUNT 3.01 M/uL (4.2-5.4); WHITE BLOOD COUNT 12.69 K/uL (4.8-10.8)
[2016-10-21 06:31] LABS: PARTIAL THROMBOPLASTIN RATIO 1.1
[2016-10-21 06:34] LABS: BUN/CREATININE RATIO 20.5 (10-20); CALCIUM 8.3 mg/dl (8.5-10.1); CREATININE 0.58 mg/dl (0.60-1.20); MAGNESIUM 1.4 mg/dl (1.8-2.4); POTASSIUM 3.2 mmol/L (3.5-5.1)
[2016-10-21] MEDS: METOPROLOL TARTRATE 25 MG TAB PO SCH ×2 (08:13→17:39)
[2016-10-21] MEDS: ATORVASTATIN 20 MG TAB PO SCH (08:13)
[2016-10-21] MEDS: FENOFIBRATE 145 MG TAB PO SCH (08:14)
[2016-10-21] MEDS: CALCIUM 600MG + VIT D 400 IU TAB PO SCH ×2 (08:14→21:01)
[2016-10-21] MEDS: BOOST PLUS VANILLA PO SCH ×6 (08:14→21:06)
[2016-10-21] MEDS: LISINOPRIL 5 MG TAB PO SCH (08:14)
[2016-10-21] MEDS: ASPIRIN 325 MG ECTAB PO SCH (08:15)
[2016-10-21] MEDS: FAMOTIDINE 20 MG TAB PO SCH ×2 (08:15→21:01)
[2016-10-21] MEDS: SERTRALINE HCL 50 MG TAB PO SCH (08:15)
[2016-10-21] MEDS: LACTOBACILLUS ACIDOPHILUS (FLORANEX) TAB PO SCH ×3 (08:15→17:40)
[2016-10-21] MEDS: ISOSORBIDE MONONITRATE 30 MG TABCR PO SCH (08:16)
[2016-10-21] MEDS: POTASSIUM CHLORIDE 20 MEQ TABCR PO SCH (08:16)
[2016-10-21] MEDS: VANCOMYCIN HCL 125 MG/2.5ML SOLN PO SCH ×4 (08:16→21:02)
[2016-10-21] MEDS: RASPBERRY SYRUP 5 ML UDP PO SCH ×4 (08:17→21:02)
[2016-10-21] MEDS ORDERED: POTASSIUM CHLORIDE 10 MEQ TABCR PO STA (10:10)
--- NOTE | 2016-10-21 10:24 | Cardiology Follow-Up ---
Subjective Subjective Date of Service: Oct 21, 2016. Pt evaluation today including: conversation w/ patient, physical exam, chart review, lab review, review of studies, review of inpatient medication list Additional Details: Pt seen and examined, states that she feels tired, otherwise, states breathing is ok. Unable to titrate high flow O2. Denies cp, palpitations, lightheadedness or dizziness. Tele reviewed: Sinus rhythm without arrhythmia or significant ectopy. Problem List Medical Problems: (1) JAMARI (acute kidney injury) Status: Acute (2) COPD (chronic obstructive pulmonary disease) Status: Acute (3) Elevated alkaline phosphatase level Status: Acute (4) Hypoalbuminemia Status: Acute (5) Hypokalemia Status: Acute (6) Hypomagnesemia Status: Acute (7) Hyponatremia Status: Acute (8) Nausea, vomiting, and diarrhea Status: Acute (9) Right upper lobe pneumonia Status: Acute (10) Vomiting Status: Acute Review of Systems Constitutional: No chills, No fever Respiratory: + cough, + shortness of breath, + sputum, No dyspnea at rest, No dyspnea on exertion, No wheezing Cardiac: No chest pain, No edema, No orthopnea, No palpitations Abdomen: No diarrhea, No nausea, No pain, No vomiting Female : No dysuria, No urinary frequency Neurologic: No memory loss Psychiatric: No depression symptoms Heme: No abnormal bleeding/bruising Endo: No fatigue Objective Vital Signs Last Vital Signs Documentation Date Time Temp Pulse Resp B/P Pulse Ox O2 Delivery O2 Flow Rate FiO2 10/21/16 07:52 36.6 86 30 155/65 90 High Flow Oxygen 10/21/16 07:10 50.0 60 Physical Exam: General Appearance: no apparent distress, + thin Eyes: bilateral eyes EOMI, bilateral eyes PERRL, bilateral eyes normal inspection ENT: normal ENT inspection, hearing grossly normal, pharynx normal Neck: supple, no adenopathy, thyroid normal, no JVD, no carotid bruits, trachea midline Respiratory/Chest: no respiratory distress, no accessory muscle use, + decreased breath sounds Cardiovascular: regular rate, rhythm, no edema, no murmur Abdomen: normal bowel sounds, non tender, soft, no organomegaly Extremities: normal inspection, no pedal edema Neurologic/Psychiatric: no motor/sensory deficits, alert, normal mood/affect Skin: normal color, warm/dry, no rash Lymphatic: no adenopathy Assessment and Plan 1. respiratory failure secondary to pneumonia attempting to wean high flow O2 will check abg will ask pulmonary to evaluate 2. elevated troponin likely secondary to increased demand from #1 no chest pain slight inferior wall hypokinesis on echo with preserved LV systolic function , possibly secondary to RV overload will complete ischemic evaluation as outpatient once pulmonary status improves will d/c nitro paste start imdur later today cont metoprolol, atorvastatin and asa cont to monitor on tele
[2016-10-21] MEDS: LEVOFLOXACIN 750 MG TAB PO SCH (11:09)
--- NOTE | 2016-10-21 11:21 | Progress Note ---
Subjective Date of Service: Oct 21, 2016. Subjective Pt evaluation today including: conversation w/ patient, physical exam, lab review, review of studies, review of inpatient medication list Saw/examined the patient in room 207 Doing okay this morning still requiring high flow oxygen denies chest pain Problem List Medical Problems: (1) JAMARI (acute kidney injury) Status: Acute (2) COPD (chronic obstructive pulmonary disease) Status: Acute (3) Elevated alkaline phosphatase level Status: Acute (4) Hypoalbuminemia Status: Acute (5) Hypokalemia Status: Acute (6) Hypomagnesemia Status: Acute (7) Hyponatremia Status: Acute (8) Nausea, vomiting, and diarrhea Status: Acute (9) Right upper lobe pneumonia Status: Acute (10) Vomiting Status: Acute Review of Systems Constitutional: + weakness, No chills, No fever Respiratory: + cough, + shortness of breath, + sputum, No dyspnea at rest, No dyspnea on exertion, No hemoptysis, No wheezing Cardiac: No chest pain, No edema, No palpitations Abdomen: + diarrhea, No nausea, No pain, No vomiting Medications Current Inpatient Medications Medications (Trade) Dose Ordered Sig/Jarrod Route Start Time Stop Time Status Last Admin Dose Admin Acetaminophen (Tylenol Tab) 650 mg Q4H PRN PO 10/14/16 13:45 11/13/16 13:44 10/16/16 13:41 650 MG Al Hydrox/Mg Hydrox/Simethicone (Maalox Max Susp) 15 ml Q4H PRN PO 10/14/16 13:45 11/13/16 13:44 Magnesium Hydroxide (Milk Of Magnesia Susp) 30 ml Q12H PRN PO 10/14/16 13:45 11/13/16 13:44 Ondansetron HCl (Zofran Inj) 4 mg Q6H PRN IV 10/14/16 13:45 11/13/16 13:44 Atorvastatin Calcium (Lipitor Tab) 20 mg DAILY PO 10/15/16 09:00 11/14/16 08:59 10/21/16 08:13 20 MG Fenofibrate (Tricor Tab) 145 mg DAILY PO 10/15/16 09:00 11/14/16 08:59 10/21/16 08:14 145 MG Sertraline HCl (Zoloft Tab) 50 mg DAILY PO 10/15/16 09:00 11/14/16 08:59 10/21/16 08:15 50 MG Calcium/Vitamin D (Caltrate Plus Tab) 1 tab BID PO 10/14/16 21:00 11/13/16 20:59 10/21/16 08:14 1 TAB Albuterol/ Ipratropium (Duoneb) 3 ml Q4R PRN INH 10/14/16 15:45 Potassium Chloride (Klor-Con Tab) 20 meq QAM PO 10/15/16 09:00 11/14/16 08:59 10/21/16 08:16 20 MEQ Vancomycin HCl (Vancomycin Oral Soln) 125 mg QID PO 10/15/16 09:00 11/03/16 23:59 10/21/16 08:16 125 MG Raspberry (Raspberry Syrup 5ml Cup) 5 ml QID PO 10/15/16 09:00 11/03/16 23:59 10/21/16 08:17 5 ML Lactobacillus Acidophilus (Floranex Tab) 4 tab TIDM PO 10/15/16 07:30 11/14/16 07:29 10/21/16 08:15 4 TAB Enteral Nutritional Formula (Boost Plus Vanilla) 1 can TID PO 10/15/16 14:00 11/14/16 13:59 10/21/16 08:14 1 CAN Lorazepam (Ativan Tab) 0.25 mg Q4H PRN PO 10/15/16 23:30 11/14/16 23:29 10/19/16 16:11 0.25 MG Aspirin (Ecotrin Tab) 325 mg QAM PO 10/17/16 09:00 11/16/16 08:59 10/21/16 08:15 325 MG Famotidine (Pepcid Tab) 20 mg BID PO 10/16/16 21:00 11/15/16 20:59 10/21/16 08:15 20 MG Guaifenesin (Robitussin Sugar Free Syrup) 100 mg Q6H PRN PO 10/18/16 03:45 11/17/16 03:44 10/19/16 08:07 100 MG Enoxaparin Sodium (Lovenox Inj) 30 mg QPM SQ 10/18/16 21:00 11/17/16 20:59 10/20/16 21:18 30 MG Metoprolol Tartrate (Lopressor Tab) 75 mg BID17 PO 10/19/16 17:00 11/18/16 16:59 10/21/16 08:13 75 MG Lisinopril (Zestril Tab) 5 mg QAM PO 10/20/16 09:00 11/19/16 08:59 10/21/16 08:14 5 MG Isosorbide Mononitrate (Imdur Ext Rel Tab) 30 mg QAM PO 10/20/16 13:00 11/19/16 12:59 10/21/16 08:16 30 MG Hydrocodone Bit/ Homatropine Methylb (Hycodan Syrup) 5 ml HS PRN PO 10/20/16 12:15 11/03/16 12:14 10/20/16 13:24 5 ML Levofloxacin (Levaquin Tab) 750 mg DAILY@1100 PO 10/21/16 11:00 10/23/16 11:01 Objective Vital Signs Date Time Temp Pulse Resp B/P Pulse Ox O2 Delivery O2 Flow Rate FiO2 10/21/16 08:30 High Flow Oxygen 50.0 80 10/21/16 07:52 36.6 86 30 155/65 90 High Flow Oxygen 10/21/16 07:10 71 22 94 Nasal Cannula 50.0 60 10/21/16 04:00 37.0 84 18 168/78 88 High Flow Oxygen 50.0 80 10/21/16 04:00 High Flow Oxygen 50.0 80 10/21/16 00:00 High Flow Oxygen 50.0 80 10/21/16 00:00 36.8 77 22 139/60 94 High Flow Oxygen 10/20/16 20:00 High Flow Oxygen 50.0 80 10/20/16 19:22 37.0 81 26 149/67 92 High Flow Oxygen 10/20/16 16:00 High Flow Oxygen 50.0 10/20/16 15:40 36.6 87 24 150/77 91 High Flow Oxygen 10/20/16 12:00 High Flow Oxygen 50.0 Physical Exam General Appearance: no apparent distress, + thin (frail) Respiratory/Chest: no respiratory distress, no accessory muscle use, + decreased breath sounds Cardiovascular: regular rate, rhythm, no edema, no murmur Abdomen: normal bowel sounds, non tender, soft Extremities: normal inspection, no pedal edema Neurologic/Psychiatric: alert Laboratory Results Last 24 Hours Test 10/21/16 05:24 White Blood Count 12.69 K/uL Red Blood Count 3.01 M/uL Hemoglobin 7.9 g/dL Hematocrit 23.9 % Mean Corpuscular Volume 79.4 fL Mean Corpuscular Hemoglobin 26.2 pg Mean Corpuscular Hemoglobin Concent 33.1 g/dl RDW Standard Deviation 43.1 fL RDW Coefficient of Variation 14.8 % Platelet Count 383 K/uL Mean Platelet Volume 9.3 fL Activated Partial Thromboplast Time 29.7 SECONDS Partial Thromboplastin Ratio 1.1 Sodium Level 136 mmol/L Potassium Level 3.2 mmol/L Chloride Level 97 mmol/L Carbon Dioxide Level 30 mmol/L Anion Gap 9.0 mmol/L Blood Urea Nitrogen 12 mg/dl Creatinine 0.58 mg/dl Est Creatinine Clear Calc Drug Dose 61.0 ml/min Estimated GFR () 109.0 Estimated GFR (Non- 94.0 BUN/Creatinine Ratio 20.5 Random Glucose 113 mg/dl Calcium Level 8.3 mg/dl Magnesium Level 1.4 mg/dl Assessment and Plan This is a 71 year old female with PMH of depression/anxiety, tobacco use disorder presents with pneumonia Sepsis secondary to Right Upper Lobe Pneumonia 2/4 sepsis, resolved still hypoxic and requiring high flow O2 pulm consult placed for further input PT/OT she is refusing rehab; wants to go home with home health when medically stable 2/3 sepsis is resolved continues to have hypoxic episodes, requiring high flow O2 continue Levaquin added Hycodan PRN nocturnally continue nebulizers may need to add steroids if hypoxia persists PT/OT; plan for rehab 2/2 present on admission as this is clearly documented on the H&P currently afebrile, no tachycardia, and hemodynamically stable Now down to Levaquin for antibiotics x 10 days continue nebulizers and oxygen 10/18 At this point, continue Vanco/zosyn she is still on high flow oxygen continue nebulizers and oxygen use states she does not need a nicotine patch afebrile, no tachycardia, hemodynamically stable leukocytosis persists 10/17 presented with fever, leukocytosis, tachycardia CXR - RUL pneumonia IV Vanco and IV Zosyn started currently on high flow oxygen, saturating well Denies significant shortness of breath today Ongoing tobacco use - will psychotherapist counselor on tobacco cessation prior to discharge Anemia chronic disease vs. iron deficiency Hgb now down to 7.9 will type and cross and recheck H/H in the afternoon transfuse if still < 8 NSTEMI 10/21 appreciate cardiology input continue metoprolol, imdur, aspirin, statin 10/20 aspirin, statin, metoprolol and imdur added today appreciate cardiology input outpatient f/u 10/19 IV heparin is stopped continue aspirin, statin and metoprolol increased lopressor dose to 75mg BID 10/18 appreciate cardiology input IV heparin stopped dose of b-zelda adjusted to 50mg BID 10/17 demand ischemic/infection related appreciate cardiology input continue IV heparin for today b-zelda dose increased nitro paste dose increased monitor on tele monitoring keep K > 4 C. Diff Colitis continue PO vanco as per GI, appreciate input total of 14 days Acute Kidney Injury, resolved dehydration related creat from 2.0 to < 1.0 Hyperlipidemia Continue statin History Anxiety/Depression continue home medications DVT ppx SCDs FULL CODE
[2016-10-21] MEDS ORDERED: POTASSIUM CHLR 10 MEQ / WTR 10 MEQ in PREMIXED WATER 100 ML IV ONE (11:30)
[2016-10-21] MEDS ORDERED: NURSING VERBAL MED ORDER ONE (11:45)
[2016-10-21] MEDS: MAGNESIUM SULFATE 1GM / D5W 1 GM in PREMIXED IN D5W 100 ML IV SCH ×2 (12:20→13:35)
[2016-10-21 12:40] LABS: HEMATOCRIT 23.8 % (37-47)
[2016-10-21] MEDS: ACETAMINOPHEN 325 MG TAB PO PRN (13:40)
--- NOTE | 2016-10-21 14:52 | Pulmonary Consultation ---
History General Date of Service: Oct 21, 2016. Stated Complaint: Hypokalemia,Hypomagnesemia,R Upper Lobe Pneumonia HPI The patient is a 71 year old female who presents to [facility] with complaints of Hypokalemia,Hypomagnesemia,R Upper Lobe Pneumonia. The patient's primary care provider is Uziel Fontaine M.D.([facility]). 71-year-old female initially admitted 10/14/2016 status post a fall in her bathroom with continuous nausea vomiting and diarrhea in notable productive cough for 3-4 days prior to admission. On workup the patient was noted to have a possible right upper lobe infiltrate, C. difficile colitis and JAMARI. From October 15 to the the patients respiratory distress progressed (Sao2 into the 70s) and she was transferred to the intensive care unit for increased level of care. She was started on BiPAP, broad spectrum antibiotics (vancomycin , Zosyn, Levaquin) and a heparin drip. With her progressive illness in the intensive care unit the patient was also noted to sustain a non-ST segment elevation myocardial infarction with notable transaminitis. Even though the patient appears to have resolution of her septic illness as well as cardiac dysfunction and acute renal insufficiency she continues to have hypoxia requiring high flow oxygen supplementation. Patient is currently on high flow nasal oxygen system with the FiO2 at 50% and flow rate of 50 L/m. the patient is doing well today, she notes continued dyspnea on exertion but no dyspnea at rest and minimal cough no mucous production. She denies: Fever, chills, cardiac chest pain, pleurisy. AB10/15/16: 7.48/27/65/20--6 L nasal cannula 10/17/16: 7.46/36/80/26BiPAP() FiO2: 60% Chest x-ray: 10/17/16: Bilateral infiltrative/reticular changes with notable infiltrate in the right upper lobe lateral segment Appears necrotic in nature Venous Doppler studies: 10/16/2016: Within normal limits bilaterally lower extremities Abdominal ultrasound 10/16/2016: Mild hepatosplenomegaly, perihepatic and perisplenic ascites #1 echocardiogram (10/16/16) -LV: LVH, EF=55-60% -Grade 1 diastolic dysfunction Treatment: #1 Levaquin--community acquired pneumonia #2 vancomycin/Lactobacillus --- C. difficile colitis Historian: patient, caregiver, EMS Review of Systems Constitutional: reports: weakness Eyes: reports: no symptoms ENT: reports: no symptoms Cardiovascular: reports: no symptoms Respiratory: reports: FLEMING, cough Gastrointestinal: reports: no symptoms Genitourinary - Female: reports: no symptoms Musculoskeletal: reports: myalgias Integumentary: reports: no symptoms Neurologic: reports: no symptoms Psychiatric: reports: no symptoms Endocrine: no symptoms Hematologic / Lymphatic: no symptoms Allergic / Immunologic: no symptoms Past Medical History Past Medical History: #1 emphysema #2 syncope #3 gastroesophageal reflux disease #4 depression #5 tobacco dependence grade and 50 pack years/current smoker Past Surgical History: None Family History No significant family history Social History Smoking Status: Current Every Day Smoker Occupational Status: retired Allergies Coded Allergies: No Known Allergies (Unverified , 12/25/14) Current Medications Reported Home Medications Medications Dose Route/Sig Max Daily Dose Days Date Category Tricor (Fenofibrate) 145 Mg Tab 145 Mg PO DAILY 12/25/14 Reported Zoloft (Sertraline Hcl) 50 Mg Tab 50 Mg PO DAILY 12/25/14 Reported Lipitor (Atorvastatin Calcium) 20 Mg Tab 20 Mg PO DAILY 12/25/14 Reported Calcium 600 + D (Calcium Carbonate-Vitamin D) 1 Tab Tab 1 Tab PO BID 12/25/14 Reported Physical Physical Exam Vital Signs: Date Time Temp Pulse Resp B/P Pulse Ox O2 Delivery O2 Flow Rate FiO2 10/21/16 12:30 High Flow Oxygen 50.0 80 10/21/16 11:43 36.8 76 30 132/59 90 High Flow Oxygen 10/21/16 08:30 High Flow Oxygen 50.0 80 10/21/16 07:52 36.6 86 30 155/65 90 High Flow Oxygen 10/21/16 07:10 71 22 94 Nasal Cannula 50.0 60 10/21/16 04:00 37.0 84 18 168/78 88 High Flow Oxygen 50.0 80 10/21/16 04:00 High Flow Oxygen 50.0 80 10/21/16 00:00 High Flow Oxygen 50.0 80 10/21/16 00:00 36.8 77 22 139/60 94 High Flow Oxygen 10/20/16 20:00 High Flow Oxygen 50.0 80 10/20/16 19:22 37.0 81 26 149/67 92 High Flow Oxygen 10/20/16 16:00 High Flow Oxygen 50.0 10/20/16 15:40 36.6 87 24 150/77 91 High Flow Oxygen General Appearance: cachetic Head: NORMOCEPHALIC, ATRAUMATIC Eyes: PERRLA, SCLERAE NORMAL ENT: NORMAL EAR EXAM, NORMAL MOUTH EXAM, NORMAL THROAT EXAM, NORMAL DENTAL EXAM , other (nasal cannula in the naris) Neck: NORMAL RANGE OF MOTION, NO TENDERNESS, TRACHEA MIDLINE, NO STRIDOR Respiratory: other (decreased breath sounds bilaterally notably greater on the left than the right with rhonchi appreciated on the right lower lobe) Cardiovasular: REGULAR RATE/RHYTHM, NORMAL S1S2, NO M/G/R Abdomen: NON TENDER, NORMAL BOWEL SOUNDS, NO REBOUND, NO MASSES, NO GUARDING, NO ORGANOMEGALY Genitourinary - Female: EXTERNAL GENITALIA NORMAL Back: NORMAL INSPECTION, NO CVA TENDERNESS, NO PARAVERTEBRAL TTP Upper Extremities: NO EDEMA Lower Extremities: NO EDEMA Pulses: carotid (R) (2+), carotid (L) (2+), dorsalis pedis (R) (1+), dorsalis pedis (L) (1+) Neuro: ALERT, ORIENTED x 3, NORMAL MOTOR EXAM, NORMAL SENSATION Reflexes: biceps (R) (2+), bicpes (L) (2+), patellar (R) (2+), patellar (L) (2+ ), achilles (R) Babinski Testing: right (downgoing), left (downgoing) Psychiatric: NORMAL AFFECT, NO SUICIDAL IDEATION Diagnostics Labs Results Past 24 Hours Test 10/21/16 05:24 10/21/16 12:10 Range/Units White Blood Count 12.69 4.8-10.8 K/uL Red Blood Count 3.01 4.2-5.4 M/uL Hemoglobin 7.9 7.8 12.0-16.0 g/dL Hematocrit 23.9 23.8 37-47 % Mean Corpuscular Volume 79.4 80-100 fL Mean Corpuscular Hemoglobin 26.2 25-34 pg Mean Corpuscular Hemoglobin Concent 33.1 32-36 g/dl RDW Standard Deviation 43.1 36.4-46.3 fL RDW Coefficient of Variation 14.8 11.5-14.5 % Platelet Count 383 130-400 K/uL Mean Platelet Volume 9.3 7.4-10.4 fL Activated Partial Thromboplast Time 29.7 21.0-31.0 SECONDS Partial Thromboplastin Ratio 1.1 Sodium Level 136 136-145 mmol/L Potassium Level 3.2 3.5-5.1 mmol/L Chloride Level 97 98-107 mmol/L Carbon Dioxide Level 30 21-32 mmol/L Anion Gap 9.0 3-11 mmol/L Blood Urea Nitrogen 12 7-18 mg/dl Creatinine 0.58 0.60-1.20 mg/dl Est Creatinine Clear Calc Drug Dose 61.0 ml/min Estimated GFR () 109.0 Estimated GFR (Non- 94.0 BUN/Creatinine Ratio 20.5 10-20 Random Glucose 113 70-99 mg/dl Calcium Level 8.3 8.5-10.1 mg/dl Magnesium Level 1.4 1.8-2.4 mg/dl Diagnostic Radiology 10/17/16: Bilateral infiltrative/reticular changes with notable infiltrate in the right upper lobe lateral segment Appears necrotic in nature Venous Doppler studies: 10/16/2016: Within normal limits bilaterally lower extremities Abdominal ultrasound 10/16/2016: Mild hepatosplenomegaly, perihepatic and perisplenic ascites EKG EKG 10/16/2016: Normal sinus rhythm, signs of left atrial enlargement, nonspecific ST and T-wave abnormalities Impression Assessment and Plan 71-year-old female with continued hypoxia after surgery or necrotizing pneumonia and non-ST elevation MO: #1 Hypoxia: Patient had severe necrotizing pneumonia it appears by CAT scan and clinical evaluation as well as non-ST elevation myocardial infarction. Adding this to the patient's unknown level of COPD/degree her continuous hypoxia is most likely secondary to severe inflammation of the lungs secondary to the above noted. At this time I agree with the antibiotics, high flow oxygen system but suggest we initiate IV Solu-Medrol at low doses 20 mg 3 times a day for possible COPD inflammation. #2 COPD: We will be helpful to obtain the patient's only function tests in the [facility] system. This would help us determine the proper long-term medical/ COPD regimen necessary. #3 Pneumonia: Patient most likely had necrotizing pneumonia and she appears to be progressing clinically would not initiate change in medication/antibodies at this time.
[2016-10-21] MEDS: METHYLPREDNISOLONE IV 20 MG in SYRINGE 0 ML IV SCH ×2 (17:36→23:29)
[2016-10-21] MEDS: ENOXAPARIN 30 MG/0.3 ML SYR SQ SCH (21:02)
[2016-10-22] VITALS (7 sets, daily range): BP systolic 149–161; BP diastolic 75–80; PULSE 67–77; TEMP 36.4–36.7; O2SAT 86–97
[2016-10-22] MEDS: METHYLPREDNISOLONE IV 20 MG in SYRINGE 0 ML IV SCH ×3 (06:26→22:58)
[2016-10-22 06:54] LABS: HEMATOCRIT 28.9 % (37-47); MEAN CELL VOLUME 81.6 fL (80-100); MEAN CORPUSCULAR HEMOGLOBIN 27.1 pg (25-34); MEAN CORPUSCULAR HGB CONC 33.2 g/dl (32-36); MEAN PLATELET VOLUME 9.7 fL (7.4-10.4); PLATELET COUNT 474 K/uL (130-400); RED BLOOD COUNT 3.54 M/uL (4.2-5.4); WHITE BLOOD COUNT 15.16 K/uL (4.8-10.8)
[2016-10-22 07:08] LABS: PARTIAL THROMBOPLASTIN RATIO 1.1
[2016-10-22 07:34] LABS: BUN/CREATININE RATIO 26.3 (10-20); CALCIUM 8.4 mg/dl (8.5-10.1); CREATININE 0.65 mg/dl (0.60-1.20); MAGNESIUM 1.8 mg/dl (1.8-2.4)
[2016-10-22] MEDS: VANCOMYCIN HCL 125 MG/2.5ML SOLN PO SCH ×4 (09:09→20:29)
[2016-10-22] MEDS: RASPBERRY SYRUP 5 ML UDP PO SCH ×4 (09:09→20:29)
[2016-10-22] MEDS: BOOST PLUS VANILLA PO SCH ×6 (09:10→20:29)
[2016-10-22] MEDS: ISOSORBIDE MONONITRATE 30 MG TABCR PO SCH (09:11)
[2016-10-22] MEDS: FENOFIBRATE 145 MG TAB PO SCH (09:11)
[2016-10-22] MEDS: LISINOPRIL 5 MG TAB PO SCH (09:11)
[2016-10-22] MEDS: CALCIUM 600MG + VIT D 400 IU TAB PO SCH ×2 (09:11→20:29)
[2016-10-22] MEDS: METOPROLOL TARTRATE 25 MG TAB PO SCH ×2 (09:11→16:58)
[2016-10-22] MEDS: POTASSIUM CHLORIDE 20 MEQ TABCR PO SCH (09:12)
[2016-10-22] MEDS: LACTOBACILLUS ACIDOPHILUS (FLORANEX) TAB PO SCH ×3 (09:12→16:58)
[2016-10-22] MEDS: ATORVASTATIN 20 MG TAB PO SCH (09:12)
[2016-10-22] MEDS: SERTRALINE HCL 50 MG TAB PO SCH (09:12)
[2016-10-22] MEDS: FAMOTIDINE 20 MG TAB PO SCH ×2 (09:12→20:29)
[2016-10-22] MEDS: ASPIRIN 325 MG ECTAB PO SCH (09:12)
--- NOTE | 2016-10-22 09:54 | Progress Note ---
Subjective Date of Service: Oct 22, 2016. Subjective Pt evaluation today including: conversation w/ patient, physical exam, lab review, review of studies, conversation w/ weight loss consultant, review of inpatient medication list Saw/examined the patient in room 207 She received 1 unit PRBCs; she felt better after the transfusion Her breathing is much improved today; though still requiring high flow O2 No other complaints Problem List Medical Problems: (1) JAMARI (acute kidney injury) Status: Acute (2) COPD (chronic obstructive pulmonary disease) Status: Acute (3) Elevated alkaline phosphatase level Status: Acute (4) Hypoalbuminemia Status: Acute (5) Hypokalemia Status: Acute (6) Hypomagnesemia Status: Acute (7) Hyponatremia Status: Acute (8) Nausea, vomiting, and diarrhea Status: Acute (9) Right upper lobe pneumonia Status: Acute (10) Vomiting Status: Acute Review of Systems Constitutional: No chills, No fever Respiratory: + cough, + shortness of breath, + sputum Cardiac: No chest pain, No edema, No palpitations Abdomen: No diarrhea, No nausea, No pain, No vomiting Medications Current Inpatient Medications Medications (Trade) Dose Ordered Sig/Jarrod Route Start Time Stop Time Status Last Admin Dose Admin Acetaminophen (Tylenol Tab) 650 mg Q4H PRN PO 10/14/16 13:45 11/13/16 13:44 10/21/16 13:40 650 MG Al Hydrox/Mg Hydrox/Simethicone (Maalox Max Susp) 15 ml Q4H PRN PO 10/14/16 13:45 11/13/16 13:44 Magnesium Hydroxide (Milk Of Magnesia Susp) 30 ml Q12H PRN PO 10/14/16 13:45 11/13/16 13:44 Ondansetron HCl (Zofran Inj) 4 mg Q6H PRN IV 10/14/16 13:45 11/13/16 13:44 Atorvastatin Calcium (Lipitor Tab) 20 mg DAILY PO 10/15/16 09:00 11/14/16 08:59 10/22/16 09:12 20 MG Fenofibrate (Tricor Tab) 145 mg DAILY PO 10/15/16 09:00 11/14/16 08:59 10/22/16 09:11 145 MG Sertraline HCl (Zoloft Tab) 50 mg DAILY PO 10/15/16 09:00 11/14/16 08:59 10/22/16 09:12 50 MG Calcium/Vitamin D (Caltrate Plus Tab) 1 tab BID PO 10/14/16 21:00 11/13/16 20:59 10/22/16 09:11 1 TAB Albuterol/ Ipratropium (Duoneb) 3 ml Q4R PRN INH 10/14/16 15:45 11/13/16 15:44 Levofloxacin (Consult) 1 ea UD PRN N/A 10/14/16 16:15 10/23/16 11:01 Potassium Chloride (Klor-Con Tab) 20 meq QAM PO 10/15/16 09:00 11/14/16 08:59 10/22/16 09:12 20 MEQ Vancomycin HCl (Vancomycin Oral Soln) 125 mg QID PO 10/15/16 09:00 11/03/16 23:59 10/22/16 09:09 125 MG Raspberry (Raspberry Syrup 5ml Cup) 5 ml QID PO 10/15/16 09:00 11/03/16 23:59 10/22/16 09:09 5 ML Lactobacillus Acidophilus (Floranex Tab) 4 tab TIDM PO 10/15/16 07:30 11/14/16 07:29 10/22/16 09:12 4 TAB Enteral Nutritional Formula (Boost Plus Vanilla) 1 can TID PO 10/15/16 14:00 11/14/16 13:59 10/22/16 09:10 1 CAN Lorazepam (Ativan Tab) 0.25 mg Q4H PRN PO 10/15/16 23:30 11/14/16 23:29 10/19/16 16:11 0.25 MG Aspirin (Ecotrin Tab) 325 mg QAM PO 10/17/16 09:00 11/16/16 08:59 10/22/16 09:12 325 MG Famotidine (Pepcid Tab) 20 mg BID PO 10/16/16 21:00 11/15/16 20:59 10/22/16 09:12 20 MG Guaifenesin (Robitussin Sugar Free Syrup) 100 mg Q6H PRN PO 10/18/16 03:45 11/17/16 03:44 10/19/16 08:07 100 MG Enoxaparin Sodium (Lovenox Inj) 30 mg QPM SQ 10/18/16 21:00 11/17/16 20:59 10/21/16 21:02 30 MG Metoprolol Tartrate (Lopressor Tab) 75 mg BID17 PO 10/19/16 17:00 11/18/16 16:59 10/22/16 09:11 75 MG Lisinopril (Zestril Tab) 5 mg QAM PO 10/20/16 09:00 11/19/16 08:59 10/22/16 09:11 5 MG Isosorbide Mononitrate (Imdur Ext Rel Tab) 30 mg QAM PO 10/20/16 13:00 11/19/16 12:59 10/22/16 09:11 30 MG Hydrocodone Bit/ Homatropine Methylb (Hycodan Syrup) 5 ml HS PRN PO 10/20/16 12:15 11/03/16 12:14 10/20/16 13:24 5 ML Levofloxacin 750 mg 750 mg DAILY@1100 PO 10/21/16 11:00 10/23/16 11:01 10/21/16 11:09 750 MG Methylprednisolone Sodium Succinate/ Syringe (Solu-Medrol IV/ Syringe) 0.32 ml @ 1.5 mls/min Q8H IV 10/21/16 15:00 11/20/16 14:59 10/22/16 06:26 1.5 MLS/MIN Objective Vital Signs Date Time Temp Pulse Resp B/P Pulse Ox O2 Delivery O2 Flow Rate FiO2 10/22/16 07:44 36.4 75 18 158/80 91 High Flow Oxygen 10/22/16 07:30 Nasal Cannula 40.0 40 10/22/16 07:10 77 24 97 Nasal Cannula 40.0 40 10/22/16 04:00 High Flow Oxygen 40.0 40 10/22/16 03:42 36.4 70 20 153/78 87 High Flow Oxygen 10/22/16 00:00 High Flow Oxygen 50.0 50 10/21/16 23:41 36.5 71 20 156/71 92 High Flow Oxygen 10/21/16 20:00 High Flow Oxygen 50.0 50 10/21/16 19:43 36.8 73 20 158/80 93 Room Air 10/21/16 17:20 36.6 76 24 140/76 88 50.0 10/21/16 16:38 74 22 94 Nasal Cannula 50.0 50 10/21/16 16:23 36.7 76 20 126/64 94 High Flow Oxygen 10/21/16 16:23 36.7 76 20 126/64 94 10/21/16 16:00 High Flow Oxygen 50.0 60 10/21/16 15:40 36.5 77 24 119/50 92 10/21/16 15:10 36.5 77 20 97/64 91 10/21/16 14:55 36.9 77 25 99/55 91 10/21/16 12:30 High Flow Oxygen 50.0 80 10/21/16 11:43 36.8 76 30 132/59 90 High Flow Oxygen Physical Exam General Appearance: no apparent distress, + cachetic, + thin Respiratory/Chest: no respiratory distress, no accessory muscle use, + decreased breath sounds Cardiovascular: regular rate, rhythm, no edema, no murmur Neurologic/Psychiatric: no motor/sensory deficits, alert, normal mood/affect Laboratory Results Last 24 Hours Test 10/21/16 12:10 10/22/16 06:20 Hemoglobin 7.8 g/dL 9.6 g/dL Hematocrit 23.8 % 28.9 % White Blood Count 15.16 K/uL Red Blood Count 3.54 M/uL Mean Corpuscular Volume 81.6 fL Mean Corpuscular Hemoglobin 27.1 pg Mean Corpuscular Hemoglobin Concent 33.2 g/dl RDW Standard Deviation 45.1 fL RDW Coefficient of Variation 15.2 % Platelet Count 474 K/uL Mean Platelet Volume 9.7 fL Activated Partial Thromboplast Time 28.1 SECONDS Partial Thromboplastin Ratio 1.1 Sodium Level 136 mmol/L Potassium Level 4.0 mmol/L Chloride Level 100 mmol/L Carbon Dioxide Level 28 mmol/L Anion Gap 8.0 mmol/L Blood Urea Nitrogen 17 mg/dl Creatinine 0.65 mg/dl Est Creatinine Clear Calc Drug Dose 52.9 ml/min Estimated GFR () 105.0 Estimated GFR (Non- 90.6 BUN/Creatinine Ratio 26.3 Random Glucose 135 mg/dl Calcium Level 8.4 mg/dl Magnesium Level 1.8 mg/dl Assessment and Plan This is a 71 year old female with PMH of depression/anxiety, tobacco use disorder presents with pneumonia Sepsis secondary to Right Upper Lobe Pneumonia 10/22 appreciate pulm input continue O2 as needed, nebulizers IV solu-medrol low dose as per pulm continue antibiotics 10/21 sepsis, resolved still hypoxic and requiring high flow O2 pulm consult placed for further input PT/OT she is refusing rehab; wants to go home with home health when medically stable 10/20 sepsis is resolved continues to have hypoxic episodes, requiring high flow O2 continue Levaquin added Hycodan PRN nocturnally continue nebulizers may need to add steroids if hypoxia persists PT/OT; plan for rehab 10/19 present on admission as this is clearly documented on the H&P currently afebrile, no tachycardia, and hemodynamically stable Now down to Levaquin for antibiotics x 10 days continue nebulizers and oxygen 10/18 At this point, continue Vanco/zosyn she is still on high flow oxygen continue nebulizers and oxygen use states she does not need a nicotine patch afebrile, no tachycardia, hemodynamically stable leukocytosis persists 10/17 presented with fever, leukocytosis, tachycardia CXR - RUL pneumonia IV Vanco and IV Zosyn started currently on high flow oxygen, saturating well Denies significant shortness of breath today Ongoing tobacco use - will counseling department chair on tobacco cessation prior to discharge Anemia 2 s/p 1 unit PRBCs Hgb improved 10/21 chronic disease vs. iron deficiency Hgb now down to 7.9 will type and cross and recheck H/H in the afternoon transfuse if still < 8 NSTEMI 10/21 appreciate cardiology input continue metoprolol, imdur, aspirin, statin 10/20 aspirin, statin, metoprolol and imdur added today appreciate cardiology input outpatient f/u 10/19 IV heparin is stopped continue aspirin, statin and metoprolol increased Lopressor dose to 75mg BID 10/18 appreciate cardiology input IV heparin stopped dose of b-zelda adjusted to 50mg BID 10/17 demand ischemic/infection related appreciate cardiology input continue IV heparin for today b-zelda dose increased nitro paste dose increased monitor on tele monitoring keep K > 4 C. Diff Colitis continue PO vanco as per GI, appreciate input total of 14 days Acute Kidney Injury, resolved dehydration related creat from 2.0 to < 1.0 Hyperlipidemia Continue statin History Anxiety/Depression continue home medications DVT ppx SCDs FULL CODE
[2016-10-22] MEDS: LEVOFLOXACIN 750 MG TAB PO SCH (12:34)
--- NOTE | 2016-10-22 15:25 | Pulmonology Progress Note ---
Pulmonary Progress Note Date of Service Oct 22, 2016. Attending [place] Subjective Patient is feeling much better today with minimal cough Objective Patient able to complete full sentences and not using accessory muscles VS: reviewed RESP: bilateral rhonchi L>R CARD: RRR distant HR Extremities: no C/C/E High Flow O2 System: FiO2 37%, Flow Rate: 40Lm Assessment & Plan 71-year-old female with continued hypoxia after surgery or necrotizing pneumonia and non-ST elevation NH: #1 Hypoxia: Patient had severe necrotizing pneumonia it appears by CAT scan and clinical evaluation as well as non-ST elevation myocardial infarction. Adding this to the patient's unknown level of COPD/degree her continuous hypoxia is most likely secondary to severe inflammation of the lungs secondary to the above noted. -Patient's leukocytosis most likely from steroids, Her O2 requirements are decreasing so lets continue steroids at this time #2 COPD: We will be helpful to obtain the patient's only function tests in the [employer] system. This would help us determine the proper long-term medical/ COPD regimen necessary. #3 Pneumonia: Patient most likely had necrotizing pneumonia and she appears to be progressing clinically would not initiate change in medication/antibodies at this time. Data Medications: Current Inpatient Medications Medications (Trade) Dose Ordered Sig/Jarrod Route Start Time Stop Time Status Last Admin Dose Admin Acetaminophen (Tylenol Tab) 650 mg Q4H PRN PO 10/14/16 13:45 11/13/16 13:44 10/21/16 13:40 650 MG Al Hydrox/Mg Hydrox/Simethicone (Maalox Max Susp) 15 ml Q4H PRN PO 10/14/16 13:45 11/13/16 13:44 Magnesium Hydroxide (Milk Of Magnesia Susp) 30 ml Q12H PRN PO 10/14/16 13:45 11/13/16 13:44 Ondansetron HCl (Zofran Inj) 4 mg Q6H PRN IV 10/14/16 13:45 11/13/16 13:44 Atorvastatin Calcium (Lipitor Tab) 20 mg DAILY PO 10/15/16 09:00 11/14/16 08:59 10/22/16 09:12 20 MG Fenofibrate (Tricor Tab) 145 mg DAILY PO 10/15/16 09:00 11/14/16 08:59 10/22/16 09:11 145 MG Sertraline HCl (Zoloft Tab) 50 mg DAILY PO 10/15/16 09:00 11/14/16 08:59 10/22/16 09:12 50 MG Calcium/Vitamin D (Caltrate Plus Tab) 1 tab BID PO 10/14/16 21:00 11/13/16 20:59 10/22/16 09:11 1 TAB Albuterol/ Ipratropium (Duoneb) 3 ml Q4R PRN INH 10/14/16 15:45 11/13/16 15:44 Levofloxacin (Consult) 1 ea UD PRN N/A 10/14/16 16:15 10/23/16 11:01 Potassium Chloride (Klor-Con Tab) 20 meq QAM PO 10/15/16 09:00 11/14/16 08:59 10/22/16 09:12 20 MEQ Vancomycin HCl (Vancomycin Oral Soln) 125 mg QID PO 10/15/16 09:00 11/03/16 23:59 10/22/16 12:35 125 MG Raspberry (Raspberry Syrup 5ml Cup) 5 ml QID PO 10/15/16 09:00 11/03/16 23:59 10/22/16 12:35 5 ML Lactobacillus Acidophilus (Floranex Tab) 4 tab TIDM PO 10/15/16 07:30 11/14/16 07:29 10/22/16 12:35 4 TAB Enteral Nutritional Formula (Boost Plus Vanilla) 1 can TID PO 10/15/16 14:00 11/14/16 13:59 10/22/16 09:10 1 CAN Lorazepam (Ativan Tab) 0.25 mg Q4H PRN PO 10/15/16 23:30 11/14/16 23:29 10/19/16 16:11 0.25 MG Aspirin (Ecotrin Tab) 325 mg QAM PO 10/17/16 09:00 11/16/16 08:59 10/22/16 09:12 325 MG Famotidine (Pepcid Tab) 20 mg BID PO 10/16/16 21:00 11/15/16 20:59 10/22/16 09:12 20 MG Guaifenesin (Robitussin Sugar Free Syrup) 100 mg Q6H PRN PO 10/18/16 03:45 11/17/16 03:44 2/2/17 08:07 100 MG Enoxaparin Sodium (Lovenox Inj) 30 mg QPM SQ 10/18/16 21:00 11/17/16 20:59 10/21/16 21:02 30 MG Metoprolol Tartrate (Lopressor Tab) 75 mg BID17 PO 10/19/16 17:00 11/18/16 16:59 10/22/16 09:11 75 MG Lisinopril (Zestril Tab) 5 mg QAM PO 10/20/16 09:00 11/19/16 08:59 10/22/16 09:11 5 MG Isosorbide Mononitrate (Imdur Ext Rel Tab) 30 mg QAM PO 10/20/16 13:00 11/19/16 12:59 10/22/16 09:11 30 MG Hydrocodone Bit/ Homatropine Methylb (Hycodan Syrup) 5 ml HS PRN PO 10/20/16 12:15 11/03/16 12:14 10/20/16 13:24 5 ML Levofloxacin 750 mg 750 mg DAILY@1100 PO 10/21/16 11:00 10/23/16 11:01 10/22/16 12:34 750 MG Methylprednisolone Sodium Succinate/ Syringe (Solu-Medrol IV/ Syringe) 0.32 ml @ 1.5 mls/min Q8H IV 10/21/16 15:00 11/20/16 14:59 10/22/16 06:26 1.5 MLS/MIN I & O: 24-Hour Column 10/22/16 07:59 Intake Total 886 ml Output Total 600 ml Balance 286 ml Vital Signs: Date Time Temp Pulse Resp B/P Pulse Ox O2 Delivery O2 Flow Rate FiO2 10/22/16 11:38 36.6 71 18 149/75 86 High Flow Oxygen 10/22/16 11:30 Nasal Cannula 40.0 40 10/22/16 07:44 36.4 75 18 158/80 91 High Flow Oxygen 10/22/16 07:30 Nasal Cannula 40.0 40 10/22/16 07:10 77 24 97 Nasal Cannula 40.0 40 10/22/16 04:00 High Flow Oxygen 40.0 40 10/22/16 03:42 36.4 70 20 153/78 87 High Flow Oxygen 10/22/16 00:00 High Flow Oxygen 50.0 50 10/21/16 23:41 36.5 71 20 156/71 92 High Flow Oxygen 10/21/16 20:00 High Flow Oxygen 50.0 50 10/21/16 19:43 36.8 73 20 158/80 93 Room Air 10/21/16 17:20 36.6 76 24 140/76 88 50.0 10/21/16 16:38 74 22 94 Nasal Cannula 50.0 50 10/21/16 16:23 36.7 76 20 126/64 94 High Flow Oxygen 10/21/16 16:23 36.7 76 20 126/64 94 10/21/16 16:00 High Flow Oxygen 50.0 60 10/21/16 15:40 36.5 77 24 119/50 92 Laboratory Results: Last 24 Hours Test 10/22/16 06:20 White Blood Count 15.16 K/uL Red Blood Count 3.54 M/uL Hemoglobin 9.6 g/dL Hematocrit 28.9 % Mean Corpuscular Volume 81.6 fL Mean Corpuscular Hemoglobin 27.1 pg Mean Corpuscular Hemoglobin Concent 33.2 g/dl RDW Standard Deviation 45.1 fL RDW Coefficient of Variation 15.2 % Platelet Count 474 K/uL Mean Platelet Volume 9.7 fL Activated Partial Thromboplast Time 28.1 SECONDS Partial Thromboplastin Ratio 1.1 Sodium Level 136 mmol/L Potassium Level 4.0 mmol/L Chloride Level 100 mmol/L Carbon Dioxide Level 28 mmol/L Anion Gap 8.0 mmol/L Blood Urea Nitrogen 17 mg/dl Creatinine 0.65 mg/dl Est Creatinine Clear Calc Drug Dose 52.9 ml/min Estimated GFR () 105.0 Estimated GFR (Non- 90.6 BUN/Creatinine Ratio 26.3 Random Glucose 135 mg/dl Calcium Level 8.4 mg/dl Magnesium Level 1.8 mg/dl
[2016-10-22] MEDS: ENOXAPARIN 30 MG/0.3 ML SYR SQ SCH (20:30)
[2016-10-23] VITALS (7 sets, daily range): BP systolic 136–178; BP diastolic 66–93; PULSE 63–70; TEMP 36.5–36.9; O2SAT 92–96
[2016-10-23] MEDS: METHYLPREDNISOLONE IV 20 MG in SYRINGE 0 ML IV SCH ×3 (05:36→22:58)
[2016-10-23] MEDS: CALCIUM 600MG + VIT D 400 IU TAB PO SCH ×2 (07:46→20:49)
[2016-10-23] MEDS: LEVOFLOXACIN 750 MG TAB PO SCH (07:46)
[2016-10-23] MEDS: ISOSORBIDE MONONITRATE 30 MG TABCR PO SCH (07:47)
[2016-10-23] MEDS: ASPIRIN 325 MG ECTAB PO SCH (07:47)
[2016-10-23] MEDS: LACTOBACILLUS ACIDOPHILUS (FLORANEX) TAB PO SCH ×3 (07:48→17:02)
[2016-10-23] MEDS: RASPBERRY SYRUP 5 ML UDP PO SCH ×4 (07:48→20:50)
[2016-10-23] MEDS: METOPROLOL TARTRATE 25 MG TAB PO SCH ×2 (07:48→17:04)
[2016-10-23] MEDS: LISINOPRIL 5 MG TAB PO SCH (07:49)
[2016-10-23] MEDS: FAMOTIDINE 20 MG TAB PO SCH ×2 (07:49→20:49)
[2016-10-23] MEDS: FENOFIBRATE 145 MG TAB PO SCH (07:49)
[2016-10-23] MEDS: BOOST PLUS VANILLA PO SCH ×6 (07:50→20:50)
[2016-10-23] MEDS: ATORVASTATIN 20 MG TAB PO SCH (07:50)
[2016-10-23] MEDS: POTASSIUM CHLORIDE 20 MEQ TABCR PO SCH (07:50)
[2016-10-23 08:07] LABS: MEAN CELL VOLUME 82.7 fL (80-100); MEAN CORPUSCULAR HEMOGLOBIN 27.5 pg (25-34); MEAN CORPUSCULAR HGB CONC 33.2 g/dl (32-36); MEAN PLATELET VOLUME 9.8 fL (7.4-10.4); PLATELET COUNT 571 K/uL (130-400); RED BLOOD COUNT 3.75 M/uL (4.2-5.4); WHITE BLOOD COUNT 18.43 K/uL (4.8-10.8)
[2016-10-23 08:19] LABS: BUN/CREATININE RATIO 34.7 (10-20); CALCIUM 8.8 mg/dl (8.5-10.1); CREATININE 0.64 mg/dl (0.60-1.20); POTASSIUM 3.9 mmol/L (3.5-5.1)
--- NOTE | 2016-10-23 08:20 | PULMONARY PROGRESS NOTE ---
DATE: 10/23/2016 The patient is comfortable this morning. She is able to use the bedside commode without dyspnea. She denies cough or chest pain, slept fairly well last night. She is tolerating antimicrobial agents well. We discussed smoking cessation at great length since she smoked up until the time of admission. PHYSICAL EXAMINATION: VITAL SIGNS: Stable now. Blood pressure remains slightly elevated at 165/70, oxygen saturation 95% on 40% O2, and she is afebrile. I\T\O is 200 in and 900 out. Weight 41 kilograms and that has been stable. According to nurses' notes, she had a fairly good night last night, able to up and out of bed independently with high-flow O2 40 liters per minute at 40% FiO2, had no complaints. HEENT: Nose exam is unremarkable. Posterior pharynx is normal with no evidence of thrush. NECK: No adenopathy is noted. She is quite thin. HEART: Regular rate and rhythm. No murmurs are heard. LUNGS: Reveal markedly decreased breath sounds bilaterally, otherwise are clear. No crackles or wheezing noted. ABDOMEN: Soft, nontender. EXTREMITIES: She has no cyanosis, clubbing or edema. Electrocardiogram revealed normal sinus rhythm with left atrial enlargement, nonspecific ST-T wave changes, and a septal infarction. Chest x-ray on 10/17/2016 revealed pulmonary consolidation in the right upper lobe with changes with hyperinflation. LABORATORY DATA: White count is 15.16, hematocrit 28.9%, platelet count of 474,000. Blood gas revealed pH 7.46, pCO2 of 36, pO2 of 80, that was on 10/17/2016. PRP is stable with a CO2 of 28 on the electrolytes, magnesium is 1.8. C. diff, the GI tract is negative. IMPRESSION: 1. Right upper lobe pneumonia, improving. 2. Chronic obstructive pulmonary disease with exacerbation. 3. [id number] elevation myocardial infarction. RECOMMENDATIONS: 1. Finish out the antimicrobial agents. 2. I think the methylprednisolone could be changed to prednisone 25 mg daily with a taper over about 2 weeks. 3. At this point, I would discontinue the Hycodan. 4. Continue on Lovenox and SCDs for good DVT prophylaxis and the Pepcid. 5. She should be continued on DuoNeb 4 times a day and then q. 4 hours p.r.n. Overall, she is stable. MTDD
[2016-10-23] MEDS: VANCOMYCIN HCL 125 MG/2.5ML SOLN PO SCH ×4 (09:16→20:50)
[2016-10-23] MEDS: SERTRALINE HCL 50 MG TAB PO SCH (09:16)
--- NOTE | 2016-10-23 11:11 | Progress Note ---
Subjective Date of Service: Oct 23, 2016. Subjective Pt evaluation today including: conversation w/ patient, physical exam, lab review, review of studies, review of inpatient medication list Saw/examined the patient in room 207 She feels fine, denies shortness of breath, denies chest pain Problem List Medical Problems: (1) JAMARI (acute kidney injury) Status: Acute (2) COPD (chronic obstructive pulmonary disease) Status: Acute (3) Elevated alkaline phosphatase level Status: Acute (4) Hypoalbuminemia Status: Acute (5) Hypokalemia Status: Acute (6) Hypomagnesemia Status: Acute (7) Hyponatremia Status: Acute (8) Nausea, vomiting, and diarrhea Status: Acute (9) Right upper lobe pneumonia Status: Acute (10) Vomiting Status: Acute Review of Systems Constitutional: No chills, No fever Respiratory: + cough, No shortness of breath, No sputum Cardiac: No chest pain, No edema, No palpitations Abdomen: No diarrhea, No nausea, No pain, No vomiting Medications Current Inpatient Medications Medications (Trade) Dose Ordered Sig/Jarrod Route Start Time Stop Time Status Last Admin Dose Admin Acetaminophen (Tylenol Tab) 650 mg Q4H PRN PO 10/14/16 13:45 11/13/16 13:44 10/21/16 13:40 650 MG Al Hydrox/Mg Hydrox/Simethicone (Maalox Max Susp) 15 ml Q4H PRN PO 10/14/16 13:45 11/13/16 13:44 Magnesium Hydroxide (Milk Of Magnesia Susp) 30 ml Q12H PRN PO 10/14/16 13:45 11/13/16 13:44 Ondansetron HCl (Zofran Inj) 4 mg Q6H PRN IV 10/14/16 13:45 11/13/16 13:44 Atorvastatin Calcium (Lipitor Tab) 20 mg DAILY PO 10/15/16 09:00 11/14/16 08:59 10/23/16 07:50 20 MG Fenofibrate (Tricor Tab) 145 mg DAILY PO 10/15/16 09:00 11/14/16 08:59 10/23/16 07:49 145 MG Sertraline HCl (Zoloft Tab) 50 mg DAILY PO 10/15/16 09:00 11/14/16 08:59 10/23/16 09:16 50 MG Calcium/Vitamin D (Caltrate Plus Tab) 1 tab BID PO 10/14/16 21:00 11/13/16 20:59 10/23/16 07:46 1 TAB Albuterol/ Ipratropium (Duoneb) 3 ml Q4R PRN INH 10/14/16 15:45 11/13/16 15:44 Potassium Chloride (Klor-Con Tab) 20 meq QAM PO 10/15/16 09:00 11/14/16 08:59 10/23/16 07:50 20 MEQ Vancomycin HCl (Vancomycin Oral Soln) 125 mg QID PO 10/15/16 09:00 11/03/16 23:59 10/23/16 09:16 125 MG Raspberry (Raspberry Syrup 5ml Cup) 5 ml QID PO 10/15/16 09:00 11/03/16 23:59 10/23/16 07:48 5 ML Lactobacillus Acidophilus (Floranex Tab) 4 tab TIDM PO 10/15/16 07:30 11/14/16 07:29 10/23/16 07:48 4 TAB Enteral Nutritional Formula (Boost Plus Vanilla) 1 can TID PO 10/15/16 14:00 11/14/16 13:59 10/23/16 07:50 1 CAN Lorazepam (Ativan Tab) 0.25 mg Q4H PRN PO 10/15/16 23:30 11/14/16 23:29 10/19/16 16:11 0.25 MG Aspirin (Ecotrin Tab) 325 mg QAM PO 10/17/16 09:00 11/16/16 08:59 10/23/16 07:47 325 MG Famotidine (Pepcid Tab) 20 mg BID PO 10/16/16 21:00 11/15/16 20:59 10/23/16 07:49 20 MG Guaifenesin (Robitussin Sugar Free Syrup) 100 mg Q6H PRN PO 10/18/16 03:45 11/17/16 03:44 10/19/16 08:07 100 MG Enoxaparin Sodium (Lovenox Inj) 30 mg QPM SQ 10/18/16 21:00 11/17/16 20:59 10/22/16 20:30 30 MG Metoprolol Tartrate (Lopressor Tab) 75 mg BID17 PO 10/19/16 17:00 11/18/16 16:59 10/23/16 07:48 75 MG Lisinopril (Zestril Tab) 5 mg QAM PO 10/20/16 09:00 11/19/16 08:59 10/23/16 07:49 5 MG Isosorbide Mononitrate (Imdur Ext Rel Tab) 30 mg QAM PO 10/20/16 13:00 11/19/16 12:59 10/23/16 07:47 30 MG Hydrocodone Bit/ Homatropine Methylb 5 ml 5 ml HS PRN PO 10/20/16 12:15 11/03/16 12:14 10/20/16 13:24 5 ML Methylprednisolone Sodium Succinate/ Syringe (Solu-Medrol IV/ Syringe) 0.32 ml @ 1.5 mls/min Q8H IV 10/21/16 15:00 11/20/16 14:59 10/23/16 05:36 1.5 MLS/MIN Objective Vital Signs Date Time Temp Pulse Resp B/P Pulse Ox O2 Delivery O2 Flow Rate FiO2 10/23/16 08:00 36.9 65 23 178/84 94 High Flow Oxygen 10/23/16 08:00 High Flow Oxygen 40.0 40 10/23/16 07:10 65 18 95 Nasal Cannula 40.0 40 10/23/16 04:00 36.7 65 20 165/70 93 High Flow Oxygen 10/23/16 04:00 High Flow Oxygen 40.0 40 10/23/16 00:00 High Flow Oxygen 40.0 40 10/23/16 00:00 36.5 65 22 136/66 92 High Flow Oxygen 10/22/16 20:06 36.6 67 20 161/77 94 Room Air 10/22/16 20:00 High Flow Oxygen 40.0 40 10/22/16 16:00 Nasal Cannula 40.0 40 10/22/16 15:49 71 20 93 Nasal Cannula 40.0 40 10/22/16 15:19 36.7 73 20 155/76 88 High Flow Oxygen 10/22/16 11:38 36.6 71 18 149/75 86 High Flow Oxygen 10/22/16 11:30 Nasal Cannula 40.0 40 Physical Exam General Appearance: no apparent distress, + cachetic, + thin Respiratory/Chest: lungs clear, normal breath sounds, no respiratory distress, no accessory muscle use Cardiovascular: regular rate, rhythm, no edema, no murmur Abdomen: normal bowel sounds, non tender, soft Extremities: normal inspection, no pedal edema Laboratory Results Last 24 Hours Test 10/23/16 05:30 White Blood Count 18.43 K/uL Red Blood Count 3.75 M/uL Hemoglobin 10.3 g/dL Hematocrit 31.0 % Mean Corpuscular Volume 82.7 fL Mean Corpuscular Hemoglobin 27.5 pg Mean Corpuscular Hemoglobin Concent 33.2 g/dl RDW Standard Deviation 46.9 fL RDW Coefficient of Variation 15.5 % Platelet Count 571 K/uL Mean Platelet Volume 9.8 fL Activated Partial Thromboplast Time 25.4 SECONDS Partial Thromboplastin Ratio 1.0 Sodium Level 136 mmol/L Potassium Level 3.9 mmol/L Chloride Level 98 mmol/L Carbon Dioxide Level 30 mmol/L Anion Gap 8.0 mmol/L Blood Urea Nitrogen 22 mg/dl Creatinine 0.64 mg/dl Est Creatinine Clear Calc Drug Dose 53.7 ml/min Estimated GFR () 105.5 Estimated GFR (Non- 91.0 BUN/Creatinine Ratio 34.7 Random Glucose 116 mg/dl Calcium Level 8.8 mg/dl Assessment and Plan This is a 71 year old female with PMH of depression/anxiety, tobacco use disorder presents with pneumonia Sepsis secondary to Right Upper Lobe Pneumonia 10/23 continue O2, nebs PRN solu-medrol d/c'd, now on oral prednisone 25mg with a 2 week taper PT/OT plan for discharge to rehab with O2 in 1-2 days 10/22 appreciate pulm input continue O2 as needed, nebulizers IV solu-medrol low dose as per pulm continue antibiotics / sepsis, resolved still hypoxic and requiring high flow O2 pulm consult placed for further input PT/OT she is refusing rehab; wants to go home with home health when medically stable 2/3 sepsis is resolved continues to have hypoxic episodes, requiring high flow O2 continue Levaquin added Hycodan PRN nocturnally continue nebulizers may need to add steroids if hypoxia persists PT/OT; plan for rehab 2/2 present on admission as this is clearly documented on the H&P currently afebrile, no tachycardia, and hemodynamically stable Now down to Levaquin for antibiotics x 10 days continue nebulizers and oxygen 10/18 At this point, continue Vanco/zosyn she is still on high flow oxygen continue nebulizers and oxygen use states she does not need a nicotine patch afebrile, no tachycardia, hemodynamically stable leukocytosis persists 10/17 presented with fever, leukocytosis, tachycardia CXR - RUL pneumonia IV Vanco and IV Zosyn started currently on high flow oxygen, saturating well Denies significant shortness of breath today Ongoing tobacco use - will grief counsellor on tobacco cessation prior to discharge Anemia 10/22 s/p 1 unit PRBCs Hgb improved 10/21 chronic disease vs. iron deficiency Hgb now down to 7.9 will type and cross and recheck H/H in the afternoon transfuse if still < 8 NSTEMI 10/21 appreciate cardiology input continue metoprolol, imdur, aspirin, statin 10/20 aspirin, statin, metoprolol and imdur added today appreciate cardiology input outpatient f/u 10/19 IV heparin is stopped continue aspirin, statin and metoprolol increased Lopressor dose to 75mg BID 10/18 appreciate cardiology input IV heparin stopped dose of b-zelda adjusted to 50mg BID 10/17 demand ischemic/infection related appreciate cardiology input continue IV heparin for today b-zelda dose increased nitro paste dose increased monitor on tele monitoring keep K > 4 C. Diff Colitis continue PO vanco as per GI, appreciate input total of 14 days Acute Kidney Injury, resolved dehydration related creat from 2.0 to < 1.0 Hyperlipidemia Continue statin History Anxiety/Depression continue home medications DVT ppx SCDs FULL CODE
[2016-10-23] MEDS: ENOXAPARIN 30 MG/0.3 ML SYR SQ SCH (20:50)
[2016-10-24] VITALS (8 sets, daily range): BP systolic 131–174; BP diastolic 69–80; PULSE 60–73; TEMP 36.4–36.9; O2SAT 89–97
[2016-10-24] MEDS: METHYLPREDNISOLONE IV 20 MG in SYRINGE 0 ML IV SCH (06:25)
[2016-10-24 06:35] LABS: HEMATOCRIT 35.6 % (37-47); MEAN CELL VOLUME 81.3 fL (80-100); MEAN CORPUSCULAR HEMOGLOBIN 27.6 pg (25-34); MEAN PLATELET VOLUME 9.7 fL (7.4-10.4); PLATELET COUNT 761 K/uL (130-400); RED BLOOD COUNT 4.38 M/uL (4.2-5.4); WHITE BLOOD COUNT 20.02 K/uL (4.8-10.8)
[2016-10-24 06:44] LABS: BUN/CREATININE RATIO 24.8 (10-20); CALCIUM 9.2 mg/dl (8.5-10.1); CREATININE 0.75 mg/dl (0.60-1.20); MAGNESIUM 1.7 mg/dl (1.8-2.4); POTASSIUM 3.9 mmol/L (3.5-5.1)
[2016-10-24] MEDS: LACTOBACILLUS ACIDOPHILUS (FLORANEX) TAB PO SCH ×3 (07:29→16:59)
[2016-10-24] MEDS: BOOST PLUS VANILLA PO SCH ×6 (07:59→20:50)
[2016-10-24] MEDS: CALCIUM 600MG + VIT D 400 IU TAB PO SCH ×2 (08:00→20:53)
[2016-10-24] MEDS: SERTRALINE HCL 50 MG TAB PO SCH (08:00)
[2016-10-24] MEDS: METOPROLOL TARTRATE 25 MG TAB PO SCH ×2 (08:01→16:59)
[2016-10-24] MEDS: ASPIRIN 325 MG ECTAB PO SCH (08:01)
[2016-10-24] MEDS: ATORVASTATIN 20 MG TAB PO SCH (08:02)
[2016-10-24] MEDS: POTASSIUM CHLORIDE 20 MEQ TABCR PO SCH (08:02)
[2016-10-24] MEDS: ISOSORBIDE MONONITRATE 30 MG TABCR PO SCH (08:02)
[2016-10-24] MEDS: LISINOPRIL 5 MG TAB PO SCH (08:03)
[2016-10-24] MEDS: FENOFIBRATE 145 MG TAB PO SCH (08:03)
[2016-10-24] MEDS: FAMOTIDINE 20 MG TAB PO SCH ×2 (08:04→20:54)
[2016-10-24] MEDS: RASPBERRY SYRUP 5 ML UDP PO SCH ×4 (08:04→20:51)
[2016-10-24] MEDS: VANCOMYCIN HCL 125 MG/2.5ML SOLN PO SCH ×4 (08:05→20:51)
--- NOTE | 2016-10-24 15:08 | DIAGNOSTIC IMAGING REPORT ---
CHEST 2 VIEWS ROUTINE CLINICAL HISTORY: Follow up Pneumonia COMPARISON STUDY: 10/17/2016 FINDINGS: The cardiac and mediastinal contours remain stable. There is underlying emphysema. The heart is normal in size. There is been significant improvement in the bilateral pulmonary airspace opacities.[ IMPRESSION: Improving bilateral pulmonary airspace opacities. Continued radiographic follow-up is recommended. Electronically signed by: Jon Woodruff M.D. 10/24/2016 3:07 PM Dictated Date/Time: 10/24/2016 3:06 PM
--- NOTE | 2016-10-24 16:39 | Progress Note ---
Internal Med Progress Note Date of Service: Oct 24, 2016. Provider Documentation: SUBJECTIVE: Patient is alert/awake & is sitting in her bed in respiratory distress with High flow oxygen on. Overall feels better. Denies any cough, chest pain/pressure. OBJECTIVE: Vital Signs-as noted below Examination: General Appearance: Alert/Awake in no apparent distress, + thin Head: normocephalic, atraumatic Eyes: normal inspection ENT: Hearing is normal.Ears, Nose & Throat are normal looking. Neck: Supple, Midline trachea, No JVD. Respiratory/Chest: B/L Moderate air entry. Almost clear to auscultation Cardiovascular: regular rate, rhythm, Normal S1,S2. Abdomen/GI: non tender, soft Extremities/Musculoskeletal: normal capillary refill, no pedal edema, normal range of motion Neurologic/Psych: no motor/sensory deficits, alert, normal mood/affect, oriented x 3 Skin: normal color, warm/dry, no rash Lymphatic: no adenopathy Lab data as noted below. ASSESSMENT & PLAN: Chest X-Ray (10/24/2016) CLINICAL HISTORY: Follow up Pneumonia COMPARISON STUDY: 10/17/2016 FINDINGS: The cardiac and mediastinal contours remain stable. There is underlying emphysema. The heart is normal in size. There is been significant improvement in the bilateral pulmonary airspace opacities.[ IMPRESSION: Improving bilateral pulmonary airspace opacities. Continued radiographic follow-up is recommended. Echocardiogram The left ventricle is normal in size. There is mild concentric left ventricular hypertrophy. There is mild hypokinesis of the inferior wall and inferior septum with otherwise preserved wall motion. Left ventricular systolic function is normal. Ejection Fraction = 55-60%. Grade I diastolic dysfunction, (abnormal relaxation pattern). Aortic valve sclerosis moderate, without significant aortic valvular stenosis. There is trace mitral regurgitation. Chest X-Ray SINGLE VIEW CHEST CLINICAL HISTORY: Pneumonia. FINDINGS: An AP, portable, upright chest radiograph is compared to study date. The cardiomediastinal silhouette is unremarkable. There is atherosclerotic calcification of the thoracic aorta. Advanced emphysema and chronic interstitial thickening are again noted. There is patchy airspace consolidation throughout the right lung and at the left lung base typical in appearance for pneumonia. No large pleural effusion or pneumothorax is seen. Apical scarring is observed. The skeletal structures are osteopenic. The bony thorax is grossly intact. IMPRESSION: 1. Multifocal patchy airspace consolidation is similar to previous and typical for multifocal pneumonia. Radiographic follow-up to resolution is recommended. 2. Advanced emphysema is again noted. Right Upper Lobe Pneumonia: Presented with non productive cough with3-4 days of fever , not feeling well , poor appetite Chest X-Ray shows RUL pneumonia. Patient is a chronic heavy smoker -did not had formal diagnosis of COPD. Clinically improving and is stable. -Treated with Levaquin, Vancomycin & Zosyn. Off antibiotics now. -Cultures are negative so far -Flu screen negative -DVT Study is negative as had elevated D-dimer. -Reviewed repeat Chest X-Ray in AM shows improvement of Pneumonia -Patient is counselled for smoking cessation -Using CPAP and High flow to maintain oxygenation -Changed from Solumedrol to prednisone 20 mg daily. C, Diff Colitis: Stable. Continue PO Vancomycin(Day # 9 )and Lactobacillus. -Nausea/Vomiting has resolved -Diarrhea is resolving. Elevated Troponin/ NSTEMI: Likely due to demand ischemia. -Troponin trend is as : <0.15 --> 3.9 --> 2.2.5 -- > 1.72. -Off I/V Heparin -Reviewed Echo findings. -Noted Cardiology input. Thanks Electrolyte Abnormalities: Resolving.Following closely. -Will replace as needed. Acute Kidney Injury: Resolved. Due to volume depletion. -Off IVF -Avoid any Nephrotoxin. Hyperlipidemia: Continue Statin. History Anxiety/Depression: Stable. Continue Zoloft. -Ativan as needed. Code Status: FULL CODE DVT Prophylaxis: SCDs. Disposition: : Expected to return to home when medically stable. Ordered PT. Wants to go home only. Medicine follow up with Dr Fontaine at [facility] Vital Signs: Date Time Temp Pulse Resp B/P Pulse Ox O2 Delivery O2 Flow Rate FiO2 10/24/16 16:04 36.7 73 18 166/71 89 High Flow Oxygen 10/24/16 16:00 High Flow Oxygen 40.0 40 10/24/16 12:00 High Flow Oxygen 40.0 40 10/24/16 11:18 36.5 60 18 143/73 96 High Flow Oxygen 40.0 40 10/24/16 10:06 High Flow Oxygen 40.0 40 10/24/16 08:00 High Flow Oxygen 40.0 40 10/24/16 07:33 36.9 62 18 170/76 96 High Flow Oxygen 10/24/16 04:19 36.6 63 17 153/75 97 High Flow Oxygen 10/24/16 04:00 High Flow Oxygen 40.0 40 10/24/16 00:32 36.7 61 17 174/80 97 High Flow Oxygen 10/24/16 00:00 High Flow Oxygen 40.0 40 10/23/16 20:14 36.8 63 20 145/93 96 High Flow Oxygen 10/23/16 20:00 High Flow Oxygen 40.0 40 Lab Results: Results Past 24 Hours Test 10/24/16 05:53 Range/Units White Blood Count 20.02 4.8-10.8 K/uL Red Blood Count 4.38 4.2-5.4 M/uL Hemoglobin 12.1 12.0-16.0 g/dL Hematocrit 35.6 37-47 % Mean Corpuscular Volume 81.3 80-100 fL Mean Corpuscular Hemoglobin 27.6 25-34 pg Mean Corpuscular Hemoglobin Concent 34.0 32-36 g/dl RDW Standard Deviation 45.5 36.4-46.3 fL RDW Coefficient of Variation 15.5 11.5-14.5 % Platelet Count 761 130-400 K/uL Mean Platelet Volume 9.7 7.4-10.4 fL Sodium Level 133 136-145 mmol/L Potassium Level 3.9 3.5-5.1 mmol/L Chloride Level 94 98-107 mmol/L Carbon Dioxide Level 29 21-32 mmol/L Anion Gap 10.0 3-11 mmol/L Blood Urea Nitrogen 19 7-18 mg/dl Creatinine 0.75 0.60-1.20 mg/dl Est Creatinine Clear Calc Drug Dose 44.9 ml/min Estimated GFR () 94.3 Estimated GFR (Non- 81.3 BUN/Creatinine Ratio 24.8 10-20 Random Glucose 100 70-99 mg/dl Calcium Level 9.2 8.5-10.1 mg/dl Magnesium Level 1.7 1.8-2.4 mg/dl
[2016-10-24] MEDS: ENOXAPARIN 30 MG/0.3 ML SYR SQ SCH (20:52)
[2016-10-24] MEDS ORDERED: METHYLPREDNISOLONE IV 20 MG in SYRINGE 0 ML IV SCH (21:00)
[2016-10-25] VITALS (12 sets, daily range): BP systolic 128–174; BP diastolic 61–92; PULSE 59–68; TEMP 36.6–37.1; O2SAT 91–98
[2016-10-25 05:55] LABS: HEMATOCRIT 31.8 % (37-47); MEAN CELL VOLUME 80.7 fL (80-100); MEAN CORPUSCULAR HEMOGLOBIN 27.4 pg (25-34); MEAN PLATELET VOLUME 9.3 fL (7.4-10.4); PLATELET COUNT 711 K/uL (130-400); RED BLOOD COUNT 3.94 M/uL (4.2-5.4); WHITE BLOOD COUNT 16.61 K/uL (4.8-10.8)
[2016-10-25 06:29] LABS: BUN/CREATININE RATIO 31.1 (10-20); CALCIUM 8.8 mg/dl (8.5-10.1); CREATININE 0.75 mg/dl (0.60-1.20); POTASSIUM 3.8 mmol/L (3.5-5.1)
[2016-10-25 06:32] LABS: ALB/GLOB RATIO 0.6 (0.9-2)
[2016-10-25 06:44] LABS: BASO % 0.1 %; BASO ABS # 0.02 K/uL (0-0.2); COMPLETE YES; EOS % 0.2 %; HYPOSEGMENTED POLYS 1+; IG% 0.8 %; LYMPH % 10.4 %; LYMPH ABS # 1.73 K/uL (1.2-3.4); MONO % 4.3 %; NEUT % 84.2 %
[2016-10-25] MEDS: VANCOMYCIN HCL 125 MG/2.5ML SOLN PO SCH ×4 (08:35→20:04)
[2016-10-25] MEDS: LACTOBACILLUS ACIDOPHILUS (FLORANEX) TAB PO SCH ×3 (08:36→16:50)
[2016-10-25] MEDS: ISOSORBIDE MONONITRATE 30 MG TABCR PO SCH (08:36)
[2016-10-25] MEDS: POTASSIUM CHLORIDE 20 MEQ TABCR PO SCH (08:36)
[2016-10-25] MEDS: FENOFIBRATE 145 MG TAB PO SCH (08:36)
[2016-10-25] MEDS: RASPBERRY SYRUP 5 ML UDP PO SCH ×4 (08:36→20:04)
[2016-10-25] MEDS: ATORVASTATIN 20 MG TAB PO SCH (08:36)
[2016-10-25] MEDS: ASPIRIN 325 MG ECTAB PO SCH (08:37)
[2016-10-25] MEDS: LISINOPRIL 5 MG TAB PO SCH (08:37)
[2016-10-25] MEDS: FAMOTIDINE 20 MG TAB PO SCH ×2 (08:38→20:05)
[2016-10-25] MEDS: BOOST PLUS VANILLA PO SCH ×6 (08:39→20:04)
[2016-10-25] MEDS: SERTRALINE HCL 50 MG TAB PO SCH (09:51)
[2016-10-25] MEDS: METOPROLOL TARTRATE 25 MG TAB PO SCH ×2 (09:51→16:51)
[2016-10-25] MEDS: CALCIUM 600MG + VIT D 400 IU TAB PO SCH ×2 (09:51→20:05)
--- NOTE | 2016-10-25 10:30 | Progress Note ---
Internal Med Progress Note Date of Service: Oct 25, 2016. Provider Documentation: SUBJECTIVE: Patient is alert/awake & is sitting in her bed in respiratory distress with High flow oxygen on. Overall feels better. Denies any cough, chest pain/pressure.Occasional trouble sleeping. OBJECTIVE: Vital Signs-as noted below Examination: General Appearance: Alert/Awake in no apparent distress, + thin Head: normocephalic, atraumatic Eyes: normal inspection ENT: Hearing is normal.Ears, Nose & Throat are normal looking. Neck: Supple, Midline trachea, No JVD. Respiratory/Chest: B/L Moderate air entry. Almost clear to auscultation Cardiovascular: regular rate, rhythm, Normal S1,S2. Abdomen/GI: non tender, soft Extremities/Musculoskeletal: normal capillary refill, no pedal edema, normal range of motion Neurologic/Psych: no motor/sensory deficits, alert, normal mood/affect, oriented x 3 Skin: normal color, warm/dry, no rash Lymphatic: no adenopathy Lab data as noted below. ASSESSMENT & PLAN: Chest X-Ray (10/24/2016) CLINICAL HISTORY: Follow up Pneumonia COMPARISON STUDY: 10/17/2016 FINDINGS: The cardiac and mediastinal contours remain stable. There is underlying emphysema. The heart is normal in size. There is been significant improvement in the bilateral pulmonary airspace opacities.[ IMPRESSION: Improving bilateral pulmonary airspace opacities. Continued radiographic follow-up is recommended. Echocardiogram The left ventricle is normal in size. There is mild concentric left ventricular hypertrophy. There is mild hypokinesis of the inferior wall and inferior septum with otherwise preserved wall motion. Left ventricular systolic function is normal. Ejection Fraction = 55-60%. Grade I diastolic dysfunction, (abnormal relaxation pattern). Aortic valve sclerosis moderate, without significant aortic valvular stenosis. There is trace mitral regurgitation. Chest X-Ray SINGLE VIEW CHEST CLINICAL HISTORY: Pneumonia. FINDINGS: An AP, portable, upright chest radiograph is compared to study date. The cardiomediastinal silhouette is unremarkable. There is atherosclerotic calcification of the thoracic aorta. Advanced emphysema and chronic interstitial thickening are again noted. There is patchy airspace consolidation throughout the right lung and at the left lung base typical in appearance for pneumonia. No large pleural effusion or pneumothorax is seen. Apical scarring is observed. The skeletal structures are osteopenic. The bony thorax is grossly intact. IMPRESSION: 1. Multifocal patchy airspace consolidation is similar to previous and typical for multifocal pneumonia. Radiographic follow-up to resolution is recommended. 2. Advanced emphysema is again noted. Right Upper Lobe Pneumonia: Presented with non productive cough with3-4 days of fever , not feeling well , poor appetite Chest X-Ray shows RUL pneumonia. Patient is a chronic heavy smoker -did not had formal diagnosis of COPD. Clinically improving and is stable. -Treated with Levaquin, Vancomycin & Zosyn. Off antibiotics now. -Cultures are negative so far -Flu screen negative -DVT Study is negative as had elevated D-dimer. -Reviewed repeat Chest X-Ray & it shows improvement of Pneumonia -Patient is counselled for smoking cessation -Using CPAP and High flow to maintain oxygenation -Changed from Solumedrol to prednisone 20 mg daily which is being tapered slowly. -Leukocytosis likely due to Prednisone. C, Diff Colitis: Stable. Continue PO Vancomycin(Day # 10 )and Lactobacillus. -Nausea/Vomiting has resolved -Diarrhea is resolving. -Enteric pathogens are negative. -Last dose of Levaquin was 10/20/16 so will continue PO Vancomycin till 2016. Elevated Troponin/ NSTEMI: Likely due to demand ischemia. -Troponin trend is as : <0.15 --> 3.9 --> 2.2.5 -- > 1.72. -Off I/V Heparin -Reviewed Echo findings. -Noted Cardiology input. Thanks Electrolyte Abnormalities: Resolving.Following closely. -Will replace as needed. Acute Kidney Injury: Resolved. Due to volume depletion. -Off IVF -Avoid any Nephrotoxin. Hypertension: BP has been running high. -Increased Lisinopril to 10 mg daily under parameters. Hyperlipidemia: Continue Statin. History Anxiety/Depression: Stable. Continue Zoloft. -Ativan as needed. Code Status: FULL CODE DVT Prophylaxis: SCDs. Disposition: : Expected to return to home when medically stable. Ordered PT. Wants to go home only. Medicine follow up with Dr Fontaine at [facility] Vital Signs: Date Time Temp Pulse Resp B/P Pulse Ox O2 Delivery O2 Flow Rate FiO2 10/25/16 08:00 High Flow Oxygen 40.0 40 10/25/16 07:50 36.9 62 15 172/84 98 High Flow Oxygen 40.0 40 10/25/16 04:13 36.9 59 16 174/92 96 High Flow Oxygen 40.0 40 10/25/16 04:00 95 High Flow Oxygen 40.0 40 10/25/16 00:01 37.1 68 18 143/66 91 High Flow Oxygen 10/24/16 23:59 95 High Flow Oxygen 40.0 40 10/24/16 20:19 36.4 64 21 131/69 93 High Flow Oxygen 10/24/16 20:00 95 High Flow Oxygen 40.0 40 10/24/16 16:04 36.7 73 18 166/71 89 High Flow Oxygen 10/24/16 16:00 High Flow Oxygen 40.0 40 10/24/16 12:00 High Flow Oxygen 40.0 40 10/24/16 11:18 36.5 60 18 143/73 96 High Flow Oxygen 40.0 40 Lab Results: Results Past 24 Hours Test 10/25/16 05:22 Range/Units White Blood Count 16.61 4.8-10.8 K/uL Red Blood Count 3.94 4.2-5.4 M/uL Hemoglobin 10.8 12.0-16.0 g/dL Hematocrit 31.8 37-47 % Mean Corpuscular Volume 80.7 80-100 fL Mean Corpuscular Hemoglobin 27.4 25-34 pg Mean Corpuscular Hemoglobin Concent 34.0 32-36 g/dl Platelet Count 711 130-400 K/uL Mean Platelet Volume 9.3 7.4-10.4 fL Neutrophils (%) (Auto) 84.2 % Lymphocytes (%) (Auto) 10.4 % Monocytes (%) (Auto) 4.3 % Eosinophils (%) (Auto) 0.2 % Basophils (%) (Auto) 0.1 % Neutrophils # (Auto) 13.98 1.4-6.5 K/uL Lymphocytes # (Auto) 1.73 1.2-3.4 K/uL Monocytes # (Auto) 0.71 0.11-0.59 K/uL Eosinophils # (Auto) 0.04 0-0.5 K/uL Basophils # (Auto) 0.02 0-0.2 K/uL RDW Standard Deviation 45.2 36.4-46.3 fL RDW Coefficient of Variation 15.5 11.5-14.5 % Immature Granulocyte % (Auto) 0.8 % Immature Granulocyte # (Auto) 0.13 0.00-0.02 K/uL Hyposegmented Neutrophils 1+ Sodium Level 133 136-145 mmol/L Potassium Level 3.8 3.5-5.1 mmol/L Chloride Level 96 98-107 mmol/L Carbon Dioxide Level 29 21-32 mmol/L Anion Gap 8.0 3-11 mmol/L Blood Urea Nitrogen 23 7-18 mg/dl Creatinine 0.75 0.60-1.20 mg/dl Est Creatinine Clear Calc Drug Dose 46.5 ml/min Estimated GFR () 94.3 Estimated GFR (Non- 81.3 BUN/Creatinine Ratio 31.1 10-20 Random Glucose 92 70-99 mg/dl Calcium Level 8.8 8.5-10.1 mg/dl Total Bilirubin 0.3 0.2-1 mg/dl Aspartate Amino Transf (AST/SGOT) 34 15-37 U/L Alanine Aminotransferase (ALT/SGPT) 37 12-78 U/L Alkaline Phosphatase 111 45-117 U/L Total Protein 6.2 6.4-8.2 gm/dl Albumin 2.4 3.4-5.0 gm/dl Globulin 3.8 2.5-4.0 gm/dl Albumin/Globulin Ratio 0.6 0.9-2
[2016-10-25] MEDS: ENOXAPARIN 30 MG/0.3 ML SYR SQ SCH (20:06)
[2016-10-26] VITALS (9 sets, daily range): BP systolic 118–179; BP diastolic 64–84; PULSE 56–66; TEMP 36.5–36.8; O2SAT 93–98
[2016-10-26] MEDS: VANCOMYCIN HCL 125 MG/2.5ML SOLN PO SCH ×4 (07:57→20:26)
[2016-10-26] MEDS: RASPBERRY SYRUP 5 ML UDP PO SCH ×4 (07:58→20:26)
[2016-10-26] MEDS: CALCIUM 600MG + VIT D 400 IU TAB PO SCH (07:58)
[2016-10-26] MEDS: LISINOPRIL 5 MG TAB PO SCH (07:59)
[2016-10-26] MEDS: METOPROLOL TARTRATE 25 MG TAB PO SCH ×2 (07:59→16:51)
[2016-10-26] MEDS: SERTRALINE HCL 50 MG TAB PO SCH (07:59)
[2016-10-26] MEDS: FAMOTIDINE 20 MG TAB PO SCH ×2 (08:00→20:26)
[2016-10-26] MEDS: ATORVASTATIN 20 MG TAB PO SCH (08:00)
[2016-10-26] MEDS: ASPIRIN 325 MG ECTAB PO SCH (08:00)
[2016-10-26] MEDS: ISOSORBIDE MONONITRATE 30 MG TABCR PO SCH (08:00)
[2016-10-26] MEDS: LACTOBACILLUS ACIDOPHILUS (FLORANEX) TAB PO SCH ×3 (08:00→16:50)
[2016-10-26] MEDS: POTASSIUM CHLORIDE 20 MEQ TABCR PO SCH (08:01)
[2016-10-26] MEDS: FENOFIBRATE 145 MG TAB PO SCH (08:01)
[2016-10-26] MEDS: BOOST PLUS VANILLA PO SCH ×6 (08:01→20:25)
--- NOTE | 2016-10-26 12:19 | Progress Note ---
Internal Med Progress Note Date of Service: Oct 26, 2016. Provider Documentation: SUBJECTIVE: Patient is alert/awake & is sitting in her bed in respiratory distress with High flow oxygen on. Overall feels better. Denies any cough, chest pain/pressure.Occasional trouble sleeping. No other new change or complaint. OBJECTIVE: Vital Signs-as noted below Examination: General Appearance: Alert/Awake in no apparent distress, + thin Head: normocephalic, atraumatic Eyes: normal inspection ENT: Hearing is normal.Ears, Nose & Throat are normal looking. Neck: Supple, Midline trachea, No JVD. Respiratory/Chest: B/L Moderate air entry. Almost clear to auscultation Cardiovascular: regular rate, rhythm, Normal S1,S2. Abdomen/GI: non tender, soft Extremities/Musculoskeletal: normal capillary refill, no pedal edema, normal range of motion Neurologic/Psych: no motor/sensory deficits, alert, normal mood/affect, oriented x 3 Skin: normal color, warm/dry, no rash Lymphatic: no adenopathy Lab data as noted below. ASSESSMENT & PLAN: Chest X-Ray (10/24/2016) CLINICAL HISTORY: Follow up Pneumonia COMPARISON STUDY: 10/17/2016 FINDINGS: The cardiac and mediastinal contours remain stable. There is underlying emphysema. The heart is normal in size. There is been significant improvement in the bilateral pulmonary airspace opacities. IMPRESSION: Improving bilateral pulmonary airspace opacities. Continued radiographic follow-up is recommended. Echocardiogram The left ventricle is normal in size. There is mild concentric left ventricular hypertrophy. There is mild hypokinesis of the inferior wall and inferior septum with otherwise preserved wall motion. Left ventricular systolic function is normal. Ejection Fraction = 55-60%. Grade I diastolic dysfunction, (abnormal relaxation pattern). Aortic valve sclerosis moderate, without significant aortic valvular stenosis. There is trace mitral regurgitation. Chest X-Ray SINGLE VIEW CHEST CLINICAL HISTORY: Pneumonia. FINDINGS: An AP, portable, upright chest radiograph is compared to study date. The cardiomediastinal silhouette is unremarkable. There is atherosclerotic calcification of the thoracic aorta. Advanced emphysema and chronic interstitial thickening are again noted. There is patchy airspace consolidation throughout the right lung and at the left lung base typical in appearance for pneumonia. No large pleural effusion or pneumothorax is seen. Apical scarring is observed. The skeletal structures are osteopenic. The bony thorax is grossly intact. IMPRESSION: 1. Multifocal patchy airspace consolidation is similar to previous and typical for multifocal pneumonia. Radiographic follow-up to resolution is recommended. 2. Advanced emphysema is again noted. Right Upper Lobe Pneumonia: Presented with non productive cough with3-4 days of fever , not feeling well , poor appetite Chest X-Ray shows RUL pneumonia. Patient is a chronic heavy smoker -did not had formal diagnosis of COPD. Clinically improving and is stable. -Treated with Levaquin, Vancomycin & Zosyn. Off antibiotics now. -Cultures are negative so far -Flu screen negative -DVT Study is negative as had elevated D-dimer. -Reviewed repeat Chest X-Ray & it shows improvement of Pneumonia -Patient is counselled for smoking cessation -Using CPAP and High flow to maintain oxygenation -Changed from Solumedrol to prednisone 20 mg daily which is being tapered slowly. -Leukocytosis likely due to Prednisone. -Will start decreasing the O2 strength gradually to prepare her for discharge. C, Diff Colitis: Stable. Continue PO Vancomycin(Day # 10 )and Lactobacillus. -Nausea/Vomiting has resolved -Diarrhea is resolving. -Enteric pathogens are negative. -Last dose of Levaquin was 10/20/16 so will continue PO Vancomycin till 2016. Elevated Troponin/ NSTEMI: Likely due to demand ischemia. -Troponin trend is as : <0.15 --> 3.9 --> 2.2.5 -- > 1.72. -Off I/V Heparin -Reviewed Echo findings. -Noted Cardiology input. Thanks Electrolyte Abnormalities: Resolving.Following closely. -Will replace as needed. Acute Kidney Injury: Resolved. Due to volume depletion. -Off IVF -Avoid any Nephrotoxin. Hypertension: BP has been running high. -Increased Lisinopril to 10 mg daily under parameters. Hyperlipidemia: Continue Statin. History Anxiety/Depression: Stable. Continue Zoloft. -Ativan as needed. Code Status: FULL CODE DVT Prophylaxis: SCDs. Disposition: : Expected to return to home when medically stable. Ordered PT. Wants to go home only. Medicine follow up with Dr Fontaine at [facility] Vital Signs: Date Time Temp Pulse Resp B/P Pulse Ox O2 Delivery O2 Flow Rate FiO2 10/26/16 11:46 36.8 66 18 131/64 96 10/26/16 09:32 62 18 93 Nasal Cannula 5.0 10/26/16 08:00 96 High Flow Oxygen 40.0 40 10/26/16 07:43 36.5 56 18 127/75 96 High Flow Oxygen 10/26/16 04:13 36.6 57 20 179/84 98 High Flow Oxygen 10/26/16 04:00 96 High Flow Oxygen 40.0 40 10/25/16 23:59 97 High Flow Oxygen 40.0 40 10/25/16 23:55 36.9 60 18 142/61 97 High Flow Oxygen 10/25/16 20:00 96 High Flow Oxygen 40.0 40 10/25/16 19:54 36.6 63 22 128/65 96 High Flow Oxygen 10/25/16 16:18 37.0 61 19 132/66 95 High Flow Oxygen 10/25/16 16:00 High Flow Oxygen 40.0 40 10/25/16 13:47 60 95
[2016-10-26] MEDS: ENOXAPARIN 30 MG/0.3 ML SYR SQ SCH (20:27)
[2016-10-27] VITALS: BP 145/78; PULSE 61; TEMP 36.3; O2SAT 92
[2016-10-27 06:57] LABS: HEMATOCRIT 34.6 % (37-47); MEAN CORPUSCULAR HEMOGLOBIN 27.3 pg (25-34); MEAN CORPUSCULAR HGB CONC 33.2 g/dl (32-36); MEAN PLATELET VOLUME 9.2 fL (7.4-10.4); PLATELET COUNT 756 K/uL (130-400); RED BLOOD COUNT 4.22 M/uL (4.2-5.4); WHITE BLOOD COUNT 13.06 K/uL (4.8-10.8)
[2016-10-27 07:28] LABS: CALCIUM 8.4 mg/dl (8.5-10.1)
[2016-10-27 07:33] LABS: BASO % 0.7 %; BASO ABS # 0.09 K/uL (0-0.2); COMPLETE YES; HYPERSEGMENTED POLYS 3+; IG% 1.7 %; LYMPH % 13.6 %; LYMPH ABS # 1.78 K/uL (1.2-3.4); MONO % 6.8 %; NEUT % 76.2 %
[2016-10-27] MEDS: VANCOMYCIN HCL 125 MG/2.5ML SOLN PO SCH ×4 (07:58→20:19)
[2016-10-27] MEDS: FENOFIBRATE 145 MG TAB PO SCH (07:58)
[2016-10-27] MEDS: METOPROLOL TARTRATE 25 MG TAB PO SCH ×2 (07:58→16:37)
[2016-10-27] MEDS: BOOST PLUS VANILLA PO SCH ×6 (07:58→20:19)
[2016-10-27] MEDS: RASPBERRY SYRUP 5 ML UDP PO SCH ×4 (07:58→20:19)
[2016-10-27] MEDS: LISINOPRIL 5 MG TAB PO SCH (07:58)
[2016-10-27] MEDS: LACTOBACILLUS ACIDOPHILUS (FLORANEX) TAB PO SCH ×3 (07:59→16:36)
[2016-10-27] MEDS: SERTRALINE HCL 50 MG TAB PO SCH (07:59)
[2016-10-27] MEDS: POTASSIUM CHLORIDE 20 MEQ TABCR PO SCH (07:59)
[2016-10-27] MEDS: ISOSORBIDE MONONITRATE 30 MG TABCR PO SCH (07:59)
[2016-10-27] MEDS: ATORVASTATIN 20 MG TAB PO SCH (07:59)
[2016-10-27] MEDS: ASPIRIN 325 MG ECTAB PO SCH (08:00)
[2016-10-27] MEDS: FAMOTIDINE 20 MG TAB PO SCH ×2 (08:02→20:20)
[2016-10-27 08:06] VITALS: BP 154/84; PULSE 66; TEMP 36.4; O2SAT 90
[2016-10-27 16:01] VITALS: BP 92/45; PULSE 61; TEMP 36.5; O2SAT 97
[2016-10-27 16:15] VITALS: O2SAT 97
[2016-10-27 17:30] VITALS: BP 110/55
--- NOTE | 2016-10-27 17:44 | Progress Note ---
Internal Med Progress Note Date of Service: Oct 27, 2016. Provider Documentation: SUBJECTIVE: Patient is alert/awake & is sitting in her bed in no respiratory distress & has been doing well on nasal cannula. Overall feels better. Denies any cough, chest pain/pressure.Occasional trouble sleeping. No other new change or complaint. OBJECTIVE: Vital Signs-as noted below Examination: General Appearance: Alert/Awake in no apparent distress, + thin Head: normocephalic, atraumatic Eyes: normal inspection ENT: Hearing is normal.Ears, Nose & Throat are normal looking. Neck: Supple, Midline trachea, No JVD. Respiratory/Chest: B/L Moderate air entry. Almost clear to auscultation Cardiovascular: regular rate, rhythm, Normal S1,S2. Abdomen/GI: non tender, soft Extremities/Musculoskeletal: normal capillary refill, no pedal edema, normal range of motion Neurologic/Psych: no motor/sensory deficits, alert, normal mood/affect, oriented x 3 Skin: normal color, warm/dry, no rash Lymphatic: no adenopathy Lab data as noted below. ASSESSMENT & PLAN: Chest X-Ray (10/24/2016) CLINICAL HISTORY: Follow up Pneumonia COMPARISON STUDY: 10/17/2016 FINDINGS: The cardiac and mediastinal contours remain stable. There is underlying emphysema. The heart is normal in size. There is been significant improvement in the bilateral pulmonary airspace opacities. IMPRESSION: Improving bilateral pulmonary airspace opacities. Continued radiographic follow-up is recommended. Echocardiogram The left ventricle is normal in size. There is mild concentric left ventricular hypertrophy. There is mild hypokinesis of the inferior wall and inferior septum with otherwise preserved wall motion. Left ventricular systolic function is normal. Ejection Fraction = 55-60%. Grade I diastolic dysfunction, (abnormal relaxation pattern). Aortic valve sclerosis moderate, without significant aortic valvular stenosis. There is trace mitral regurgitation. Chest X-Ray SINGLE VIEW CHEST CLINICAL HISTORY: Pneumonia. FINDINGS: An AP, portable, upright chest radiograph is compared to study date. The cardiomediastinal silhouette is unremarkable. There is atherosclerotic calcification of the thoracic aorta. Advanced emphysema and chronic interstitial thickening are again noted. There is patchy airspace consolidation throughout the right lung and at the left lung base typical in appearance for pneumonia. No large pleural effusion or pneumothorax is seen. Apical scarring is observed. The skeletal structures are osteopenic. The bony thorax is grossly intact. IMPRESSION: 1. Multifocal patchy airspace consolidation is similar to previous and typical for multifocal pneumonia. Radiographic follow-up to resolution is recommended. 2. Advanced emphysema is again noted. Right Upper Lobe Pneumonia: Presented with non productive cough with3-4 days of fever , not feeling well , poor appetite Chest X-Ray shows RUL pneumonia. Patient is a chronic heavy smoker -did not had formal diagnosis of COPD. Clinically improving and is stable. -Treated with Levaquin, Vancomycin & Zosyn. Off antibiotics now. -Cultures are negative so far -Flu screen negative -DVT Study is negative as had elevated D-dimer. -Reviewed repeat Chest X-Ray & it shows improvement of Pneumonia -Patient is counselled for smoking cessation -Using CPAP and High flow to maintain oxygenation -Changed from Solumedrol to prednisone 20 mg daily which is being tapered slowly. -Leukocytosis likely due to Prednisone. -Will start decreasing the O2 strength gradually to prepare her for discharge. C, Diff Colitis: Stable. Continue PO Vancomycin(Day # 10 )and Lactobacillus. -Nausea/Vomiting has resolved -Diarrhea is resolving. -Enteric pathogens are negative. -Last dose of Levaquin was 10/20/16 so will continue PO Vancomycin till 2016. Elevated Troponin/ NSTEMI: Likely due to demand ischemia. -Troponin trend is as : <0.15 --> 3.9 --> 2.2.5 -- > 1.72. -Off I/V Heparin -Reviewed Echo findings. -Noted Cardiology input. Thanks Electrolyte Abnormalities: Resolving.Following closely. -Will replace as needed. Acute Kidney Injury: Resolved. Due to volume depletion. -Off IVF -Avoid any Nephrotoxin. Hypertension: BP has been running high. -Increased Lisinopril to 10 mg daily under parameters. Hyperlipidemia: Continue Statin. History Anxiety/Depression: Stable. Continue Zoloft. -Ativan as needed. Code Status: FULL CODE DVT Prophylaxis: SCDs. Disposition: : Expected to return to home on 10/28/1016. Ordered PT. Wants to go home only. Medicine follow up with Dr Fontaine at [facility] Vital Signs: Date Time Temp Pulse Resp B/P Pulse Ox O2 Delivery O2 Flow Rate FiO2 10/27/16 16:01 36.5 61 18 92/45 97 3.0 10/27/16 08:45 Nasal Cannula 3.0 10/27/16 08:06 36.4 66 16 154/84 90 Nasal Cannula 3.0 10/27/16 02:00 Nasal Cannula 3.0 10/27/16 00:00 36.3 61 18 145/78 92 3.0 Lab Results: Results Past 24 Hours Test 10/27/16 00:30 10/27/16 06:30 Range/Units Heparin Anti-Xa Act, Low Molec Wt 0.84 0 - <0.10 IU/ML White Blood Count 13.06 4.8-10.8 K/uL Red Blood Count 4.22 4.2-5.4 M/uL Hemoglobin 11.5 12.0-16.0 g/dL Hematocrit 34.6 37-47 % Mean Corpuscular Volume 82.0 80-100 fL Mean Corpuscular Hemoglobin 27.3 25-34 pg Mean Corpuscular Hemoglobin Concent 33.2 32-36 g/dl Platelet Count 756 130-400 K/uL Mean Platelet Volume 9.2 7.4-10.4 fL Neutrophils (%) (Auto) 76.2 % Lymphocytes (%) (Auto) 13.6 % Monocytes (%) (Auto) 6.8 % Eosinophils (%) (Auto) 1.0 % Basophils (%) (Auto) 0.7 % Neutrophils # (Auto) 9.95 1.4-6.5 K/uL Lymphocytes # (Auto) 1.78 1.2-3.4 K/uL Monocytes # (Auto) 0.89 0.11-0.59 K/uL Eosinophils # (Auto) 0.13 0-0.5 K/uL Basophils # (Auto) 0.09 0-0.2 K/uL RDW Standard Deviation 46.4 36.4-46.3 fL RDW Coefficient of Variation 15.6 11.5-14.5 % Immature Granulocyte % (Auto) 1.7 % Immature Granulocyte # (Auto) 0.22 0.00-0.02 K/uL Hypersegmented Polys 3+ Sodium Level 135 136-145 mmol/L Potassium Level 4.0 3.5-5.1 mmol/L Chloride Level 99 98-107 mmol/L Carbon Dioxide Level 26 21-32 mmol/L Anion Gap 10.0 3-11 mmol/L Blood Urea Nitrogen 29 7-18 mg/dl Creatinine 1.00 0.60-1.20 mg/dl Est Creatinine Clear Calc Drug Dose 34.4 ml/min Estimated GFR () 66.6 Estimated GFR (Non- 57.4 BUN/Creatinine Ratio 29.0 10-20 Random Glucose 98 70-99 mg/dl Calcium Level 8.4 8.5-10.1 mg/dl
[2016-10-27] MEDS: HEPARIN SOD 5000 UNIT/0.5 ML CARP SQ SCH (20:20)
[2016-10-28 00:01] VITALS: BP 138/67; PULSE 65; TEMP 36.5; O2SAT 97
[2016-10-28 07:10] VITALS: BP 148/68; PULSE 73; TEMP 36.7; O2SAT 96
[2016-10-28] MEDS: BOOST PLUS VANILLA PO SCH ×2 (08:46)
[2016-10-28] MEDS: VANCOMYCIN HCL 125 MG/2.5ML SOLN PO SCH ×2 (08:47→11:28)
[2016-10-28] MEDS: RASPBERRY SYRUP 5 ML UDP PO SCH ×2 (08:47→11:28)
[2016-10-28] MEDS: FAMOTIDINE 20 MG TAB PO SCH (08:48)
[2016-10-28] MEDS: METOPROLOL TARTRATE 25 MG TAB PO SCH (08:49)
[2016-10-28] MEDS: FENOFIBRATE 145 MG TAB PO SCH (08:49)
[2016-10-28] MEDS: ASPIRIN 325 MG ECTAB PO SCH (08:49)
[2016-10-28] MEDS: LACTOBACILLUS ACIDOPHILUS (FLORANEX) TAB PO SCH ×2 (08:50→11:28)
[2016-10-28] MEDS: ISOSORBIDE MONONITRATE 30 MG TABCR PO SCH (08:50)
[2016-10-28] MEDS: ATORVASTATIN 20 MG TAB PO SCH (08:50)
[2016-10-28] MEDS: LISINOPRIL 5 MG TAB PO SCH (08:51)
[2016-10-28] MEDS: SERTRALINE HCL 50 MG TAB PO SCH (08:52)
[2016-10-28] MEDS: POTASSIUM CHLORIDE 20 MEQ TABCR PO SCH (08:52)
[2016-10-28] MEDS: HEPARIN SOD 5000 UNIT/0.5 ML CARP SQ SCH (09:39)
--- NOTE | 2016-10-28 11:22 | Progress Note ---
Internal Med Progress Note Date of Service: Oct 28, 2016. Provider Documentation: SUBJECTIVE: Patient is alert/awake & is sitting in her chair in no respiratory distress & has been doing well on nasal cannula. Overall feels better. Denies any cough, chest pain/pressure.Occasional trouble sleeping.Regular BM. No other new change or complaint. OBJECTIVE: Vital Signs-as noted below Examination: General Appearance: Alert/Awake in no apparent distress, + thin Head: normocephalic, atraumatic Eyes: normal inspection ENT: Hearing is normal.Ears, Nose & Throat are normal looking. Neck: Supple, Midline trachea, No JVD. Respiratory/Chest: B/L Moderate air entry. Almost clear to auscultation Cardiovascular: regular rate, rhythm, Normal S1,S2. Abdomen/GI: non tender, soft Extremities/Musculoskeletal: normal capillary refill, no pedal edema, normal range of motion Neurologic/Psych: no motor/sensory deficits, alert, normal mood/affect, oriented x 3 Skin: normal color, warm/dry, no rash Lymphatic: no adenopathy Lab data as noted below. ASSESSMENT & PLAN: Chest X-Ray (10/24/2016) CLINICAL HISTORY: Follow up Pneumonia COMPARISON STUDY: 10/17/2016 FINDINGS: The cardiac and mediastinal contours remain stable. There is underlying emphysema. The heart is normal in size. There is been significant improvement in the bilateral pulmonary airspace opacities. IMPRESSION: Improving bilateral pulmonary airspace opacities. Continued radiographic follow-up is recommended. Echocardiogram The left ventricle is normal in size. There is mild concentric left ventricular hypertrophy. There is mild hypokinesis of the inferior wall and inferior septum with otherwise preserved wall motion. Left ventricular systolic function is normal. Ejection Fraction = 55-60%. Grade I diastolic dysfunction, (abnormal relaxation pattern). Aortic valve sclerosis moderate, without significant aortic valvular stenosis. There is trace mitral regurgitation. Chest X-Ray SINGLE VIEW CHEST CLINICAL HISTORY: Pneumonia. FINDINGS: An AP, portable, upright chest radiograph is compared to study date. The cardiomediastinal silhouette is unremarkable. There is atherosclerotic calcification of the thoracic aorta. Advanced emphysema and chronic interstitial thickening are again noted. There is patchy airspace consolidation throughout the right lung and at the left lung base typical in appearance for pneumonia. No large pleural effusion or pneumothorax is seen. Apical scarring is observed. The skeletal structures are osteopenic. The bony thorax is grossly intact. IMPRESSION: 1. Multifocal patchy airspace consolidation is similar to previous and typical for multifocal pneumonia. Radiographic follow-up to resolution is recommended. 2. Advanced emphysema is again noted. Right Upper Lobe Pneumonia: Presented with non productive cough with3-4 days of fever , not feeling well , poor appetite Chest X-Ray shows RUL pneumonia. Patient is a chronic heavy smoker -did not had formal diagnosis of COPD. Clinically improving and is stable. -Treated with Levaquin, Vancomycin & Zosyn. Off antibiotics now. -Cultures are negative so far -Flu screen negative -DVT Study is negative as had elevated D-dimer. -Reviewed repeat Chest X-Ray & it shows improvement of Pneumonia -Patient is counselled for smoking cessation -Using CPAP and High flow to maintain oxygenation -Changed from Solumedrol to prednisone 20 mg daily which is being tapered slowly. -Leukocytosis likely due to Prednisone. -Reviewed the result of two-step and she will need supplemental oxygen at home @ 3 L via nasal cannula. C, Diff Colitis: Stable. Continue PO Vancomycin(Day # 10 )and Lactobacillus. -Nausea/Vomiting has resolved -Diarrhea is resolving. -Enteric pathogens are negative. -Last dose of Levaquin was 10/20/16 so will continue PO Vancomycin till 2016. Elevated Troponin/ NSTEMI: Likely due to demand ischemia. -Troponin trend is as : <0.15 --> 3.9 --> 2.2.5 -- > 1.72. -Off I/V Heparin -Reviewed Echo findings. -Noted Cardiology input. Thanks Electrolyte Abnormalities: Resolving.Following closely. -Will replace as needed. Acute Kidney Injury: Resolved. Due to volume depletion. -Off IVF -Avoid any Nephrotoxin. Hypertension: BP has been running high. -Increased Lisinopril to 10 mg daily under parameters. Hyperlipidemia: Continue Statin. History Anxiety/Depression: Stable. Continue Zoloft. -Ativan as needed. Code Status: FULL CODE DVT Prophylaxis: SCDs. Disposition:Medicine follow up with Dr Fontaine at [facility] on 11/03/2016 @ 12.40 PM. Follow up with Cardiology as outpatient in 2 weeks. Vital Signs: Date Time Temp Pulse Resp B/P Pulse Ox O2 Delivery O2 Flow Rate FiO2 10/28/16 08:00 Room Air 10/28/16 07:10 36.7 73 18 148/68 96 2.0 10/28/16 00:01 36.5 65 20 138/67 97 2.0 10/28/16 00:00 Nasal Cannula 3.0 10/27/16 17:30 110/55 10/27/16 16:15 97 Nasal Cannula 3.0 10/27/16 16:01 36.5 61 18 92/45 97 3.0
[2016-10-28] MEDS ORDERED: PRD10 PO (11:25)
[2016-10-28] MEDS ORDERED: LSN5 PO (11:25)
[2016-10-28] MEDS ORDERED: PRED-301 PO (11:25)
[2016-10-28] MEDS ORDERED: LPR25 PO (11:25)
[2016-10-28] MEDS ORDERED: LACTCAP3 PO (11:25)
[2016-10-28] MEDS ORDERED: FAMO40TA6 PO (11:25)
[2016-10-28] MEDS ORDERED: ASPEC325 PO (11:25)
[2016-10-28] MEDS ORDERED: VNCS125 PO (11:25)
[2016-10-28] MEDS ORDERED: IMDSR30 PO (11:25)
--- NOTE | 2016-10-28 11:28 | Discharge Instructions ---
Discharge Instructions Admission Reason for Admission: Hypokalemia,Hypomagnesemia,R Upper Lobe Pneumonia Discharge Discharge Diagnosis / Problem: Right Sided Pneumonia Discharge Goals Goal(s): Decrease discomfort, Improve function, Increase independence, Improve disease control, Improve nutritional status, Learn about illness, Diagnostic testing, Therapeutic intervention Activity Recommendations Activity Limitations: resume your previous activity (As Tolkerated following fall precautions) Lifting Limitations: no more than 5 pounds Exercise/Sports Limitations: as tolerated Shower/Bathe: no limitations Driving or Machine Use: Try gradually one week after discharge . Instructions / Follow-Up Instructions / Follow-Up Take all the medications as directed. Avoid fried/fatty food. Drink adequate amount of liquids regularly Medicine follow up with Dr Fontaine at [facility] on 11/03/2016 @ 12.40 PM. Follow up with Cardiology as outpatient in 2 weeks. Current Hospital Diet Patient's current hospital diet: Regular Diet Discharge Diet Recommended Diet: AHA Diet (Heart Healthy) Pending Studies Studies pending at discharge: no Medical Emergencies . Who to Call and When: Medical Emergencies: If at any time you feel your situation is an emergency, please call 911 immediately. . Non-Emergent Contact Non-Emergency issues call your: Primary Care Provider . . "Provider Documentation" section prepared by Frank Langford. VTE Core Measure Inpt VTE Proph given/why not?: SCD's
--- NOTE | 2016-10-28 11:30 | Discharge Summary ---
Discharge Summary Admission Date: Oct 14, 2016 at 15:19 Discharge Date: Oct 28, 2016 Discharge Disposition: Home with services Principal Diagnosis: Right Sided Pneumonia C. Diff Colitis NSTEMI Electrolyte Abnormalities (resolved) Acute Kidney Injury (Resolved) Chronic Respiratory Failure Secondary Diagnoses/Problems: Hypertension Dyslipidemia Anxiety/Depression Procedures: CHEST 2 VIEWS ROUTINE FINDINGS: The heart is normal in size. There is radiographic evidence of emphysema. There is dense consolidation involving the periphery of the right upper lobe. There is right hilar enlargement. Also evident are subtle left basal airspace opacities. There are no pleural effusions.[ IMPRESSION: 1. Right upper lobe pulmonary consolidation, consistent with pneumonia 2. Mild left basilar airspace opacities, likely secondary to an additional area of pneumonitis 3. Right hilar fullness. This could indicate reactive adenopathy although a central mass is not excluded 4. Radiographic follow-up subsequent to antibiotic therapy is recommended. ABDOMINAL ULTRASOUND COMPLETE HISTORY: Renal insufficiency renal failure, elevated AST. COMPARISON: None. FINDINGS: Pancreas: The pancreas demonstrates a normal echotexture. Liver: Mild hepatomegaly. Trace perihepatic ascites. Gallbladder: Prior cholecystectomy CBD: 8 mm most likely on a postoperative basis Kidneys: No hydronephrosis. Spleen: Mild splenomegaly. Maximum linear dimension 13 cm. Aorta: Normal in caliber. IVC: Patent. IMPRESSION: Mild hepatosplenomegaly. Trace perihepatic and perisplenic ascites. Prior cholecystectomy. CHEST 2 VIEWS ROUTINE CLINICAL HISTORY: Follow up Pneumonia COMPARISON STUDY: 10/17/2016 FINDINGS: The cardiac and mediastinal contours remain stable. There is underlying emphysema. The heart is normal in size. There is been significant improvement in the bilateral pulmonary airspace opacities. IMPRESSION: Improving bilateral pulmonary airspace opacities. Continued radiographic follow-up is recommended. Vaccinations: NONE Consultations: Cardiology Critical care Pending Studies/Follow-Up: Needs CBC, CMP in one week. Repeat Chest X-Ray in 8-10 days. Needs outpatient Cardiology follow up to undergo Nuclear Stress Test Medication Reconciliation New Medications: Famotidine (Pepcid) 40 Mg Tab 1 TAB PO DAILY for 30 Days, #30 TAB 3 Refills Lactobacillus (Acidophilus) 1 Cap Cap 1 CAP PO TID, #15 Prednisone (Prednisone) 5 Mg Tab 5 MG PO QDB, #3 TAB Aspirin (Aspirin) 325 Mg Ectab 325 MG PO QAM, #100 TAB Isosorbide Mononitrate (Isosorbide Mononitrate ER) 30 Mg Tabcr 30 MG PO QAM, #90 TAB Lisinopril (Lisinopril) 5 Mg Tab 10 MG PO QAM, #90 TAB Metoprolol Tartrate (Lopressor) 25 Mg Tab 75 MG PO BID17 for 30 Days, #180 TAB Prednisone (Prednisone) 10 Mg Tab 10 MG PO DAILY, #3 TAB Vancomycin HCl (Vancomycin HCl) 125 Mg/2.5 Ml Susp 125 MG PO QID for 3 Days Continued Medications: Atorvastatin (Lipitor) 20 Mg Tab 20 MG PO DAILY, TAB Calcium Carbonate-Vitamin D (Calcium 600 + D) 1 Tab Tab 1 TAB PO BID Fenofibrate (Tricor ) 145 Mg Tab 145 MG PO DAILY, TAB Sertraline Hcl (Zoloft) 50 Mg Tab 50 MG PO DAILY, TAB Admission Information HPI (per Admitting provider): this is a 71 yo F with hx of Depression , anxiety disorder , heavy tobacco use , brought to ED by her Daughters , as pt this AM fell down in her bathroom , having ongoing nausea , vomiting , diarrhea Pt has not been feeling well since last Sunday , had fever and chills ongoing nausea , vomiting , fever , severe body ache had diarrhea pt smokes 1 pk cig a day , has chronic cough this morning -pt was found on floor of bathroom by her daughter , ongoing diarrhea , in coherent ED lab showed : WBC 20 K , hyponatremia , Hypokalemia, low mg Cxray shows dense Rt upper lobe infiltrate pt initially refused to be admitted -stating she does not like hospital, wants to go home and wants to have instructions how she can take care of her pneumonia, dehydration at home pt is counselled , updated that she is in Sepsis -critical illness due to pneumonia with severe dehydration , electrolyte derangement, need IV Abx , IVF , close monitoring in Hospital setting -good recovering with early aggressive treatment with out that she can develop septic shock -which could be life threatening pt is agreeable to stay in hospital for over weekend for treatment Daughters present at bedside Physical Exam (per Admitting): General Appearance: no apparent distress, + thin Head: normocephalic, atraumatic Eyes: normal inspection Respiratory/Chest: + decreased breath sounds, + rales (at rt base ) Cardiovascular: regular rate, rhythm Abdomen/GI: non tender, soft Extremities/Musculoskelatal: normal capillary refill, no pedal edema, normal range of motion Neurologic/Psych: no motor/sensory deficits, alert, normal mood/affect, oriented x 3 Skin: normal color, warm/dry, no rash Lymphatic: no adenopathy Hospital Course Chest X-Ray (10/24/2016) CLINICAL HISTORY: Follow up Pneumonia COMPARISON STUDY: 10/17/2016 FINDINGS: The cardiac and mediastinal contours remain stable. There is underlying emphysema. The heart is normal in size. There is been significant improvement in the bilateral pulmonary airspace opacities. IMPRESSION: Improving bilateral pulmonary airspace opacities. Continued radiographic follow-up is recommended. Echocardiogram The left ventricle is normal in size. There is mild concentric left ventricular hypertrophy. There is mild hypokinesis of the inferior wall and inferior septum with otherwise preserved wall motion. Left ventricular systolic function is normal. Ejection Fraction = 55-60%. Grade I diastolic dysfunction, (abnormal relaxation pattern). Aortic valve sclerosis moderate, without significant aortic valvular stenosis. There is trace mitral regurgitation. Chest X-Ray SINGLE VIEW CHEST CLINICAL HISTORY: Pneumonia. FINDINGS: An AP, portable, upright chest radiograph is compared to study date. The cardiomediastinal silhouette is unremarkable. There is atherosclerotic calcification of the thoracic aorta. Advanced emphysema and chronic interstitial thickening are again noted. There is patchy airspace consolidation throughout the right lung and at the left lung base typical in appearance for pneumonia. No large pleural effusion or pneumothorax is seen. Apical scarring is observed. The skeletal structures are osteopenic. The bony thorax is grossly intact. IMPRESSION: 1. Multifocal patchy airspace consolidation is similar to previous and typical for multifocal pneumonia. Radiographic follow-up to resolution is recommended. 2. Advanced emphysema is again noted. Right Upper Lobe Pneumonia: Presented with non productive cough with3-4 days of fever , not feeling well , poor appetite Chest X-Ray shows RUL pneumonia. Patient is a chronic heavy smoker -did not had formal diagnosis of COPD. Clinically improving and is stable. -Treated with Levaquin, Vancomycin & Zosyn. Off antibiotics now. -Cultures are negative so far -Flu screen negative -DVT Study is negative as had elevated D-dimer. -Reviewed repeat Chest X-Ray & it shows improvement of Pneumonia -Patient is counselled for smoking cessation -Using CPAP and High flow to maintain oxygenation -Changed from Solumedrol to prednisone 20 mg daily which is being tapered slowly. -Leukocytosis likely due to Prednisone. -Will start decreasing the O2 strength gradually to prepare her for discharge. C, Diff Colitis: Stable. Continue PO Vancomycin(Day # 10 )and Lactobacillus. -Nausea/Vomiting has resolved -Diarrhea is resolving. -Enteric pathogens are negative. -Last dose of Levaquin was 10/20/16 so will continue PO Vancomycin till 2016. Elevated Troponin/ NSTEMI: Likely due to demand ischemia. -Troponin trend is as : <0.15 --> 3.9 --> 2.2.5 -- > 1.72. -Off I/V Heparin -Reviewed Echo findings. -Noted Cardiology input. Thanks Electrolyte Abnormalities: Resolving.Following closely. -Will replace as needed. Acute Kidney Injury: Resolved. Due to volume depletion. -Off IVF -Avoid any Nephrotoxin. Hypertension: BP has been running high. -Increased Lisinopril to 10 mg daily under parameters. Hyperlipidemia: Continue Statin. History Anxiety/Depression: Stable. Continue Zoloft. -Ativan as needed. Code Status: FULL CODE DVT Prophylaxis: SCDs. Disposition:Medicine follow up with Dr Fontaine at [facility] on 11/03/2016 @ 12.40 PM. Follow up with Cardiology as outpatient in 2 weeks. Total time spent on discharge = 45 minutes This includes examination of the patient, discharge planning, medication reconciliation, and communication with other providers. Discharge Instructions Discharge Goals Goal(s): Decrease discomfort, Improve function, Increase independence, Improve disease control, Improve nutritional status, Learn about illness, Diagnostic testing, Therapeutic intervention Activity Recommendations Activity Limitations: resume your previous activity (As Tolkerated following fall precautions) Lifting Limitations: no more than 5 pounds Exercise/Sports Limitations: as tolerated Shower/Bathe: no limitations Driving or Machine Use: Try gradually one week after discharge . Instructions / Follow-Up Instructions / Follow-Up Take all the medications as directed. Avoid fried/fatty food. Drink adequate amount of liquids regularly Medicine follow up with Dr Fontaine at [facility] on 11/03/2016 @ 12.40 PM. Follow up with Cardiology as outpatient in 2 weeks. Current Hospital Diet Patient's current hospital diet: Regular Diet Discharge Diet Recommended Diet: AHA Diet (Heart Healthy) Additional Copies To Uziel Fontaine M.D.([email or web address]
[2016-10-28 11:34] VITALS: BP 148/68; PULSE 73; TEMP 36.7; O2SAT 96
== END 2016-10-28 13:40 | disposition home health service (06) | DRG 871 ==
LOC: ENRESERVTM → CANRESERV → ENRESERVDT → C.EDB 11:09 → C.2E 15:19 → UNDOADMIN 15:19 → CANBEDREQ 10-15 12:42 → C.2E 10-15 15:01 → C.MS2W 10-15 15:01 → C.MSICU 10-15 22:41 → C.MS2W 10-15 22:41 → C.MSICU 10-18 13:04 → C.2E 10-18 13:04 → C.MS4W 10-26 14:09
PROVIDERS: ADMIT Hospitalist; ATTEND Emergency Medicine
PROC: 03HY32Z Insertion of Monitoring Device into Upper Artery, Percutaneous Approach (ICD-10-PCS; principal; 2016-10-16)
DX: A41.9 Sepsis, unspecified organism (principal); J18.9 Pneumonia, unspecified organism; N17.9 Acute kidney failure, unspecified; E87.3 Alkalosis; E87.1 Hypo-osmolality and hyponatremia; A04.7 Enterocolitis due to Clostridium difficile; I24.8 Other forms of acute ischemic heart disease; J96.21 Acute and chronic respiratory failure with hypoxia; I21.4 Non-ST elevation (NSTEMI) myocardial infarction; R18.8 Other ascites; F17.210 Nicotine dependence, cigarettes, uncomplicated; E87.6 Hypokalemia; E83.42 Hypomagnesemia; E88.09 Other disorders of plasma-protein metabolism, not elsewhere classified; E86.0 Dehydration; E78.5 Hyperlipidemia, unspecified; I10 Essential (primary) hypertension; K21.9 Gastro-esophageal reflux disease without esophagitis; R65.20 Severe sepsis without septic shock; D50.9 Iron deficiency anemia, unspecified; J44.9 Chronic obstructive pulmonary disease, unspecified

== ENCOUNTER 2024-06-03 21:28 | Inpatient (IN) ==
[2024-06-03 22:11] LABS: Basophils # (auto) 0.01 K/uL (0.00-0.20); Basophils % (auto) 0.1 %; Eosinophils # (auto) 0.01 K/uL (0.00-0.50); Eosinophils % (auto) 0.1 %; Hemoglobin 12.5 g/dl (12.0-16.0); Immature Granulocytes # (auto) 0.05 K/uL (0.01-0.20); Immature Granulocytes % (auto) 0.4 %; Lymphocytes # (auto) 0.92 K/uL (1.20-3.40); Lymphocytes % (auto) 7.8 %; Mean Corpuscular Hemoglobin 30.9 pg (25.0-34.0); Mean Corpuscular Hgb Conc 35.7 g/dL (32.0-36.0); Mean Corpuscular Volume 86.4 fL (80.0-100.0); Mean Platelet Volume 9.7 fL (9.4-12.4); Monocytes # (auto) 0.61 K/uL (0.11-0.59); Monocytes % (auto) 5.2 %; Neutrophils # (auto) 10.16 K/uL (1.40-6.50); Neutrophils % (auto) 86.4 %; Platelet Count 319 K/uL (130-400); RDW Coefficient of Variation 12.4 % (11.5-14.5); RDW Standard Deviation 39.6 fL (36.4-46.3); Red Blood Count 4.05 M/uL (4.20-5.40); White Blood Count 11.76 K/ul (4.8-10.8)
[2024-06-03] MEDS: SODIUM CHLORIDE 0.9% 500 ML IV STA (22:12)
[2024-06-03 22:41] LABS: Albumin Globulin Ratio 1.3 (0.9-2); Albumin Level 4.4 gm/dl (3.4-5.0); Calcium 12.6 mg/dl (8.6-10.3); Creatinine Clr Calc Pharmacy 32.7 ml/min; Est GFR (African American) 75.5 ml/min; Est GFR (Non-African American) 65.2 ml/min; Globulin 3.5 gm/dl (2.5-4.0); Potassium 3.6 mmol/L (3.5-5.1); Total Protein 7.9 gm/dl (6.0-8.3)
--- NOTE | 2024-06-03 23:11 | Emergency Department Note ---
Impression & Plan Lower abdominal pain, Enteritis, Hypercalcemia, Acute hyponatremia, AAA (abdominal aortic aneurysm) without rupture ED Provider Note NAME: SHAHID MCKEON AGE: 79 SEX: Female INFORMANT: Patient ED PROVIDER(S): Jerrod Barber MD CHIEF COMPLAINT: Abdominal pain PLAN: Disposition: Admitted Outpatient prescription management: none Referral: None MEDICAL DECISION MAKING: Patient present because of nausea and abdominal pain. Blood work was obtained. The patient was found to have hyponatremia as well as hypercalcemia. She was gently hydrated. She was given Zofran and had resolution of her abdominal discomfort and nausea. Patient underwent CT imaging. There is no evidence of aortic rupture. Her aneurysm has enlarged since last year. She notes she has been followed by the [facility] for this. In light of her electrolyte abnormalities as well as no evidence of rupture for the AAA patient will need further evaluation and management in the hospital. Consultation was made with the [facility] hospitalist service, Dr. Gates. Patient was evaluated in the ER and admitted for further management Care/management discussed with: healthcare economics manager Level of care consideration(s): After review of the information above and other included data, I feel the patient requires escalation of care to admission Triage Nursing notes: reviewed and agree them. Vital Signs: reviewed and remarkable for hypertension Additional History obtained from: none Chronic Medical/Social Conditions affecting care: AAA, COPD Prior/ Outside/ External records reviewed: none Differential Diagnosis: Foodborne illness, appendicitis, ovarian cyst, ovarian torsion, ectopic , TOA, PID, infections, diverticulitis, UTI, obstruction, mesenteric ischemia, aortic pathology, inflammatory bowel disease, renal colic, PUD, pancreatitis, biliary pathology, hernia, volvulus, constipation, as well as other pathologies. Diagnostics, independently interpreted by me: ECG: Twelve-lead ECG was sinus tachycardia at [address] elevation or depression. No PACs or PVCs. Cardiac Monitoring: Cardiac monitoring ordered by me: The patient was placed on continuous cardiac monitoring and observed. It revealed a normal sinus rhythm at 87 beats per minute without ectopy or evidence of dysrhythmia. Medical decision rules: none Imaging studies: CT imaging reveals a nonruptured large AAA. Mild distention of several loops of bowel in the pelvis concerning for enteritis. No free air. I refer you to the EMR for further details. HPI: 79 year old Female arrives for evaluation of abdominal pain. This started 3 days and is lower. The patient also notes the following associated symptoms, nausea. The patient has taken tylenol for relieving factors. Current pain is rated as 8/10. Went to urgent care and referred. hx of AAA and incontinence. Pt denies LOC, headache, fevers, chills, diaphoresis, visual changes, neck pain, chest pain, breathing difficulties, vomiting, back pain, melena, hematochezia, numbness, weakness, lymphadenopathy, rash, or other complaints. . PAST MEDICAL HISTORY: See Below, AAA, COPD PAST SURGICAL HISTORY: See Below, SOCIAL HISTORY: See Below, smokes HOME MEDICATIONS: See Below ALLERGIES: See Below VITALS: See Below PHYSICAL EXAMINATION: GENERAL: Awake, alert, uncomfortable-appearing, in no distress HENT: Normocephalic, atraumatic. Oropharynx unremarkable. EYES: Normal conjunctiva. Sclera non-icteric. NECK: Inspection normal. Non-tender. Supple. No nuchal rigidity. FROM. No masses. RESPIRATORY: Clear to auscultation. No wheezes. No rales. Normal respiratory effort. CARDIAC: Normal rate. Normal rhythm. No murmurs. No rubs. Extremities warm and well perfused. Pulses equal. No JVD. GI: Soft, non-distended. Lower tenderness to palpation. No rebound or guarding. No masses. RECTAL: Deferred. MUSCULOSKELETAL: Atraumatic. Chest examination reveals no tenderness. The back is symmetrical on inspection without obvious abnormality. There is no CVA tenderness to palpation. No joint edema. LOWER EXTREMITIES: Calves are equal size bilaterally and non-tender. No edema. No discoloration. NEURO: Normal sensorium. No sensory or motor deficits noted. SKIN: No rash or jaundice noted. PROCEDURES: none CRITICAL CARE: none OBSERVATION NOTE: none Past Med/Surg History Problem List AAA (abdominal aortic aneurysm) without rupture (Acute) Acute hyponatremia (Acute) Hypercalcemia (Acute) Enteritis (Acute) Lower abdominal pain (Acute) Acute hypoxemic respiratory failure Sepsis (Acute) Pneumonia (Acute) Leukocytosis (Acute) Hypoxia (Acute) Hypertension JAMARI (acute kidney injury) Hyponatremia COPD exacerbation UTI (urinary tract infection) (Acute) Pneumonia (Acute) Hypokalemia (Acute) Anxiety (Chronic) GERD (gastroesophageal reflux disease) (Chronic) Dyslipidemia (Chronic) COPD (chronic obstructive pulmonary disease) (Chronic) RLS (restless legs syndrome) (Chronic) Hx of cholecystectomy (Chronic) History of appendectomy (Chronic) Hx of tonsillectomy (Chronic) Tobacco consumption Family History (Updated 07/27/18 @ 10:[address] MD) Other Diabetes Family history non-contributory Heart disease Social History Smoking Status: Current every day smoker Tobacco Type: Cigarettes Cigarettes Per Day: 1 pack per day; Hx Alcohol Use: No Hx Substance Use: Yes Last Used Substance: Unknown Preferred Language: [place] Communication Ability: Effective 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 Beliefs That Will Affect Care: None Current Living Situation: Family Feels Safe at Home: Yes Assistive Devices: Cane and Other Allergies Allergies Allergy/AdvReac Type Severity Reaction Status Date / Time No Known Allergies Allergy Unverified 07/10/23 19:06 Home Meds Home Medications Medication Instructions Recorded Confirmed calcium carbonate 600 mg-vitamin 1 tab PO BID 07/26/18 07/10/23 D3 20 mcg (800 unit) chewable tablet (Caltrate 600 plus D) fenofibrate nanocrystallized 145 145 mg PO QAM 07/26/18 07/10/23 mg tablet (Tricor) isosorbide mononitrate 30 mg 30 mg PO QAM 07/26/18 07/10/23 tablet,extended release 24 hr albuterol sulfate 90 mcg/actuation 2 puff inhalation Q6 PRN Shortness 07/10/23 07/10/23 aerosol inhaler Of Breath Or Wheezing aspirin 81 mg tablet,delayed 81 mg PO QAM 07/10/23 07/10/23 release atorvastatin 40 mg tablet 40 mg PO HS 07/10/23 07/10/23 buspirone 10 mg tablet 5 mg PO BID 07/10/23 07/10/23 famotidine 20 mg tablet 20 mg PO AMHS 07/10/23 07/10/23 fluticasone fur. 200 mcg-umeclid 1 inh inhalation QAM 07/10/23 07/10/23 62.5 mcg-vilant 25 mcg inhalat.powder (Trelegy Ellipta) lisinopril 20 mg tablet 20 mg PO QAM 07/10/23 07/10/23 mirtazapine 15 mg tablet 15 mg PO HS 07/10/23 07/10/23 ondansetron HCl 4 mg tablet 4 mg PO Q6 PRN nausea or vomiting 07/10/23 07/10/23 sertraline 100 mg tablet 100 mg PO HS 07/10/23 07/10/23 Previous Rx's Medication Instructions Recorded amlodipine 5 mg tablet (Norvasc) 5 mg PO QAM #30 tabs 07/14/23 amoxicillin 875 mg-potassium 1 tab PO BIDM #12 tabs 07/14/23 clavulanate 125 mg tablet metoprolol tartrate 50 mg tablet 50 mg PO BID #30 tabs 07/14/23 prednisone 20 mg tablet 20 mg PO DAILY #1 tab 07/14/23 Results & Data (ED) Vital Signs Vital Signs - 24 hr 06/03/24 21:30 06/03/24 21:40 06/03/24 21:47 Temperature 36.8 C 36.5 C Temperature Source Oral Oral Pulse Rate 100 H 98 H Pulse Rate [Apical] 99 H Pulse Rhythm Regular Pulse Rhythm [Apical] Regular Pulse Strength Normal Pulse Strength [Apical] Normal Respiratory Rate 14 18 Respiratory Effort / Characteristics Non-Labored Spontaneous Non-Labored Spontaneous Respiratory Depth Normal Normal Respiratory Pattern Regular Regular Blood Pressure 170/99 H Blood Pressure [Right Arm] 170/99 H Blood Pressure Mean 122 Blood Pressure Mean [Right Arm] 122 Blood Pressure Position [Right Arm] Pulse Oximetry 94 99 Oxygen Delivery Method Room Air Room Air Sepsis Recent Fever Within 48 Hours No Sepsis New/Unexplained Change in Mental Status N/A Sepsis Action Taken by Nursing No Action Required 06/03/24 22:13 06/03/24 23:02 06/04/24 00:00 Temperature Temperature Source Pulse Rate Pulse Rate [Apical] 98 H 94 H 95 H Pulse Rhythm Pulse Rhythm [Apical] Regular Pulse Strength Pulse Strength [Apical] Normal Normal Respiratory Rate 21 18 22 Respiratory Effort / Characteristics Non-Labored Spontaneous Non-Labored Spontaneous Non-Labored Respiratory Depth Normal Normal Normal Respiratory Pattern Regular Regular Regular Blood Pressure Blood Pressure [Right Arm] 176/102 H 184/89 H 132/76 Blood Pressure Mean Blood Pressure Mean [Right Arm] 126 120 94 Blood Pressure Position [Right Arm] Pulse Oximetry 95 94 94 Oxygen Delivery Method Room Air Room Air Room Air Sepsis Recent Fever Within 48 Hours Sepsis New/Unexplained Change in Mental Status Sepsis Action Taken by Nursing 06/04/24 01:00 Temperature Temperature Source Pulse Rate Pulse Rate [Apical] 87 Pulse Rhythm Pulse Rhythm [Apical] Pulse Strength Pulse Strength [Apical] Respiratory Rate 20 Respiratory Effort / Characteristics Non-Labored Respiratory Depth Respiratory Pattern Blood Pressure Blood Pressure [Right Arm] 156/88 H Blood Pressure Mean Blood Pressure Mean [Right Arm] 110 Blood Pressure Position [Right Arm] Lying Pulse Oximetry 93 Oxygen Delivery Method Room Air Sepsis Recent Fever Within 48 Hours Sepsis New/Unexplained Change in Mental Status Sepsis Action Taken by Nursing Laboratory Data 06/03/24 21:37 06/03/24 21:37 Lab Results 06/03/24 06/04/24 Range/Units 21:37 00:20 WBC 11.76 H (4.8-10.8) K/ul RBC 4.05 L (4.20-5.40) M/uL Hgb 12.5 (12.0-16.0) g/dl Hct 35.0 L (37.0-47.0) % MCV 86.4 (80.0-100.0) fL MCH 30.9 (25.0-34.0) pg MCHC 35.7 (32.0-36.0) g/dL RDW Std Deviation 39.6 (36.4-46.3) fL RDW Coeff of Carlos Manuel 12.4 (11.5-14.5) % Plt Count 319 (130-400) K/uL MPV 9.7 (9.4-12.4) fL Immature Gran % (Auto) 0.4 % Neut % (Auto) 86.4 % Lymph % (Auto) 7.8 % [place] % (Auto) 5.2 % Eos % (Auto) 0.1 % Baso % (Auto) 0.1 % Neut # (Auto) 10.16 H (1.40-6.50) K/uL Lymph # (Auto) 0.92 L (1.20-3.40) K/uL [place] # (Auto) 0.61 H (0.11-0.59) K/uL Eos # (Auto) 0.01 (0.00-0.50) K/uL Baso # (Auto) 0.01 (0.00-0.20) K/uL Immature Gran # (Auto) 0.05 (0.01-0.20) K/uL Sodium 124 L (136-145) mmol/L Potassium 3.6 (3.5-5.1) mmol/L Chloride 89 L (98-107) mmol/L Carbon Dioxide 24 (21-32) mmol/L Anion Gap 11 (3-11) BUN 31 H (6-23) mg/dl Creatinine 0.86 (0.6-1.2) mg/dl Est Cr Clr Drug Dosing 32.7 ml/min Est GFR ( Amer) 75.5 ml/min Est GFR (Non-Af Amer) 65.2 ml/min BUN/Creatinine Ratio 36.0 H (10-20) Glucose 135 H (70-99(Fasting)) mg/dl Calcium 12.6 H* (8.6-10.3) mg/dl Total Bilirubin 1.0 (0.2-1.0) mg/dl AST 34 (13-39) U/L ALT 16 (7-52) U/L Alkaline Phosphatase 73 (34-104) U/L Total Protein 7.9 (6.0-8.3) gm/dl Albumin 4.4 (3.4-5.0) gm/dl Globulin 3.5 (2.5-4.0) gm/dl Albumin/Globulin Ratio 1.3 (0.9-2) Lipase 81 (11-82) U/L Urine Color Yellow Urine Appearance Clear (Clear) Urine pH 7.5 (4.5-7.5) Ur Specific [place] 1.038 H (1.000-1.030) Urine Protein Negative (Negative) Urine Glucose (UA) Negative (Negative) Urine Ketones Negative (Negative) Urine Blood Negative (Negative) Urine Nitrite Negative (Negative) Urine Bilirubin Negative (Negative) Urine Urobilinogen Negative (Negative) Ur Leukocyte Esterase Negative (Negative) Administered Medications Discontinued Medications Sodium Chloride (Nss) 500 mls @ 999 mls/hr IV .Q31M STA Stop: 06/03/24 22:21 Last Infusion: 06/03/24 22:49 Dose: Infused Documented By: Admin: 06/03/24 22:12 Dose: 999 mls/hr Documented By: LIZET Ioversol (Optiray 320 100ml) 100 ml IV ONCE ONE Stop: 06/03/24 23:23 Last Admin: 06/03/24 23:22 Dose: 93 ml Documented By: ELENA Ondansetron HCl (Ondansetron Inj 2 Mg/Ml 2 Ml Vial) 4 mg IV NOW STA Stop: 06/03/24 23:15 Last Admin: 06/03/24 23:30 Dose: 4 mg Documented By: ELIZA Imaging Data Radiologist's Impression: Abdomen/Pelvis CT 06/03/24 23:13 Exam(s): CT ABDOMEN + PELVIS With Contrast IV Amt: 93 ML OPTIRAY 320 EXAM: CT Abdomen and Pelvis With Intravenous Contrast CLINICAL HISTORY: Reason for exam: lower abd pain. hx of AAA. TECHNIQUE: Axial computed tomography images of the abdomen and pelvis with intravenous contrast. CTDI is 6.43 mGy and DLP is 282.67 mGy-cm. Automated exposure control was utilized for the study. A dose lowering technique was utilized adhering to the principles of ALARA. CONTRAST: Patient received 93 ML OPTIRAY 320 of IV contrast COMPARISON: No relevant prior studies available. FINDINGS: Lung bases: Unremarkable. No mass. No consolidation. ABDOMEN: Liver: Unremarkable. No mass. Gallbladder and bile ducts: Cholecystectomy. No ductal dilation. Pancreas: Unremarkable. No mass. No ductal dilation. Spleen: Unremarkable. No splenomegaly. Adrenals: Unremarkable. No mass. Kidneys and ureters: LEFT upper pole renal cyst measures 1.6 cm. No hydronephrosis. Stomach and bowel: Mild fluid-filled small bowel, with mild wall thickening, concerning for mild enteritis. No obstruction. PELVIS: Appendix: No findings to suggest acute appendicitis. Bladder: Unremarkable. No mass. Reproductive: Unremarkable as visualized. ABDOMEN and PELVIS: Intraperitoneal space: Unremarkable. No free air. No significant fluid collection. Bones/joints: No acute fracture. No dislocation. Soft tissues: Unremarkable. Vasculature: Infrarenal abdominal aortic aneurysm, measures 7.0 x 3.3 x 4.1 cm. This has increased in size when compared to July 10, 2023. Vascular surgical evaluation recommended. Lymph nodes: Unremarkable. No enlarged lymph nodes. IMPRESSION: 1. Infrarenal abdominal aortic aneurysm, measures 7.0 x 3.3 x 4.1 cm. This has increased in size when compared to July 10, 2023. Vascular surgical evaluation recommended. 2. Mild fluid-filled small bowel, with mild wall thickening, concerning for mild enteritis. 3. Cholecystectomy. Electronically signed by: Lucio Augustine MD 06/04/24 01:01 AM Discharge Plan Visit Data Chief Complaint: Abdominal Pain Stated Complaint: ABDOMINAL PAIN, HX OF AAA, WANTS CHECKED ED Provider: Jerrod Barber Discharge Problem: Lower abdominal pain, Enteritis, Hypercalcemia, Acute hyponatremia, AAA (abdominal aortic aneurysm) without rupture Forms Stand Alone Forms: My [facility] Prescriptions Prescriptions: No Action isosorbide mononitrate 30 mg Tablet Extended Release 24 Hr 30 mg PO QAM fenofibrate nanocrystallized [Tricor] 145 mg Tablet 145 mg PO QAM Caltrate 600 plus D 600 mg (1,500 mg)-800 unit Tablet,Chewable 1 tab PO BID albuterol sulfate 90 mcg/actuation HFA aerosol inhaler 2 puff INHALATION Q6 PRN (Reason: Shortness Of Breath Or Wheezing) ondansetron HCl 4 mg tablet 4 mg PO Q6 PRN (Reason: nausea or vomiting) atorvastatin 40 mg tablet 40 mg PO HS lisinopril 20 mg tablet 20 mg PO QAM sertraline 100 mg tablet 100 mg PO HS Trelegy Ellipta 200-62.5-25 mcg blister with device 1 inh INHALATION QAM buspirone 10 mg tablet 5 mg PO BID famotidine 20 mg tablet 20 mg PO AMHS mirtazapine 15 mg tablet 15 mg PO HS aspirin 81 mg Tablet,Delayed Release (Dr/Ec) 81 mg PO QAM amlodipine [Norvasc] 5 mg Tablet 5 mg PO QAM Qty: 30 0RF metoprolol tartrate 50 mg Tablet 50 mg PO BID Qty: 30 0RF amoxicillin-pot clavulanate 875-125 mg Tablet 1 tab PO BIDM Qty: 12 0RF prednisone 20 mg Tablet 20 mg PO DAILY Qty: 1 0RF Rx Instructions: Take the final dose of prednisone 20mg by mouth on 07/14/23. Referrals Referrals: Phi Kyle DO [Primary Care Provider] -
[2024-06-03] MEDS: OPTIRAY 320 100ml IV ONE (23:22)
[2024-06-03] MEDS: ONDANSETRON INJ 2 MG/ML 2 ML VIAL IV STA (23:30)
[2024-06-04 00:34] LABS: Appearance Urine Clear (Clear); Bilirubin Urine Negative (Negative); Blood Urine Negative (Negative); Color Urine Yellow; Glucose Urine UA Negative (Negative); Ketones Urine Negative (Negative); Leukocyte Esterase Urine Negative (Negative); Nitrite Urine Negative (Negative); Protein Urine Negative (Negative); Specific Gravity Urine 1.038 (1.000-1.030); Urobilinogen Urine Negative (Negative); pH Urine 7.5 (4.5-7.5)
--- NOTE | 2024-06-04 01:02 | CT Scan Report ---
Exam(s): CT ABDOMEN + PELVIS With Contrast IV Amt: 93 ML OPTIRAY 320 EXAM: CT Abdomen and Pelvis With Intravenous Contrast CLINICAL HISTORY: Reason for exam: lower abd pain. hx of AAA. TECHNIQUE: Axial computed tomography images of the abdomen and pelvis with intravenous contrast. CTDI is 6.43 mGy and DLP is 282.67 mGy-cm. Automated exposure control was utilized for the study. A dose lowering technique was utilized adhering to the principles of ALARA. CONTRAST: Patient received 93 ML OPTIRAY 320 of IV contrast COMPARISON: No relevant prior studies available. FINDINGS: Lung bases: Unremarkable. No mass. No consolidation. ABDOMEN: Liver: Unremarkable. No mass. Gallbladder and bile ducts: Cholecystectomy. No ductal dilation. Pancreas: Unremarkable. No mass. No ductal dilation. Spleen: Unremarkable. No splenomegaly. Adrenals: Unremarkable. No mass. Kidneys and ureters: LEFT upper pole renal cyst measures 1.6 cm. No hydronephrosis. Stomach and bowel: Mild fluid-filled small bowel, with mild wall thickening, concerning for mild enteritis. No obstruction. PELVIS: Appendix: No findings to suggest acute appendicitis. Bladder: Unremarkable. No mass. Reproductive: Unremarkable as visualized. ABDOMEN and PELVIS: Intraperitoneal space: Unremarkable. No free air. No significant fluid collection. Bones/joints: No acute fracture. No dislocation. Soft tissues: Unremarkable. Vasculature: Infrarenal abdominal aortic aneurysm, measures 7.0 x 3.3 x 4.1 cm. This has increased in size when compared to July 10, 2023. Vascular surgical evaluation recommended. Lymph nodes: Unremarkable. No enlarged lymph nodes. IMPRESSION: 1. Infrarenal abdominal aortic aneurysm, measures 7.0 x 3.3 x 4.1 cm. This has increased in size when compared to July 10, 2023. Vascular surgical evaluation recommended. 2. Mild fluid-filled small bowel, with mild wall thickening, concerning for mild enteritis. 3. Cholecystectomy. Electronically signed by: Lucio Augustine MD 06/04/24 01:01 AM
--- NOTE | 2024-06-04 05:48 | History & Physical Report ---
Date of Service June 04, 2024 Assessment & Plan (1) Enteritis: Plan: 79-year-old female with past medical history significant for dyslipidemia, prediabetes, COPD, was on oxygen last year for few months but currently not on any oxygen at home, pulmonary Cachexia due to chronic obstructive pulmonary disease, hiatal hernia, multiple lung nodules, seasonal allergic rhinitis, renal artery stenosis, mesenteric artery stenosis, iliac artery stenosis bilateral, hypertension, CAD, history of abdominal aortic aneurysm, GERD, dysphagia, CKD stage III, restless leg syndrome, anemia and due to chronic kidney disease, DEVAN, tobacco use disorder, mild cognitive impairment, BMI less than 19 who lives at home with her daughter ambulates without support comes because of abdominal pain going on for last 4 days. Patient states also having severe abdominal pain for last 4 days not getting better so she came to the ER. Was also nauseous. Received Zofran in the ER. Currently nausea improved. Currently abdominal pain is much better. Did not move her bowels for last 4 days. Micturating less. Denies any chest pain or shortness of breath. No cough. No fevers. No headache. No runny nose or sore throat. Did not eat much last few days. Currently resting comfortably and hemodynamically stable., Somewhat hard to hear. Abdominal pain CT abdomen showing mild enteritis Denies nausea or diarrhea Gentle fluids Clear liquid diet Antiemetics as needed Will monitor Hyponatremia Sodium 124 History of chronic hyponatremia Will check urine osmolality, serum osmolality and urine sodium levels Getting gentle fluids Close monitoring of the labs Slow correction Nephrology consult in a.m. Hypercalcemia Calcium 12.6 Will check vitamin D levels and PTH levels Hold home vitamin D and calcium supplement Follow repeat labs If still elevated will give calcitonin Nephrology consult for further recommendations Abdominal aortic aneurysm Today CT scan showing 7 x 3.3x 4.1 cm infrarenal abdominal aortic aneurysm which is increased in size compared to July 10, 2023 when the size was 4.1x 4.2 cm Patient following with [facility] vascular surgery and was seen in November 2023 and the notes mention sizes 4.1 x 4.2 cm Since significant increase in size will consult vascular surgery COPD Continue home inhalers Pulmonary cachexia due to COPD Dietitian consult History of multiple lung nodules There is a follow-up CT scan this month 06/07 as per PCP notes CKD stage III Presented creatinine 0.8 Will follow labs History of CAD On statin, fenofibrate, Imdur, Toprol tartrate and aspirin GERD PPI and famotidine Prediabetes Will follow l HbA1c levels Generalized anxiety disorder On Remeron buspirone and Zoloft Hypertension On amlodipine, metoprolol, lisinopril, isosorbide mononitrate Will monitor Malnutrition Dietitian consult DVT prophylaxis Heparin subcu Disposition Telemetry Full code History of Present Illness Chief Complaint: Abdominal pain Primary Care Provider: Phi Kyle DO 79-year-old female with past medical history significant for dyslipidemia, prediabetes, COPD, was on oxygen last year for few months but currently not on any oxygen at home, pulmonary Cachexia due to chronic obstructive pulmonary disease, hiatal hernia, multiple lung nodules, seasonal allergic rhinitis, renal artery stenosis, mesenteric artery stenosis, iliac artery stenosis bilateral, hypertension, CAD, history of abdominal aortic aneurysm, GERD, dysphagia, CKD stage III, restless leg syndrome, anemia and due to chronic kidney disease, DEVAN, tobacco use disorder, mild cognitive impairment, BMI less than 19 who lives at home with her daughter ambulates without support comes because of abdominal pain going on for last 4 days. Patient states also having severe abdominal pain for last 4 days not getting better so she came to the ER. Was also nauseous. Received Zofran in the ER. Currently nausea improved. Currently abdominal pain is much better. Did not move her bowels for last 4 days. Micturating less. Denies any chest pain or shortness of breath. No cough. No fevers. No headache. No runny nose or sore throat. Did not eat much last few days. Currently resting comfortably and hemodynamically stable., Somewhat hard to hear. Past medical history. As mentioned above Past surgical history. EGD. Laparoscopic cholecystectomy. Punctured drainage of the right breast cyst. Appendectomy. Tonsillectomy. Social history. . Living with her daughter. Smokes 1 pack a day for last 50 years. No alcohol use. No drug use. Family history. Brother had COPD. Father had diabetes. Hypertension. Tumor in colon. Brother had lung cancer. Mother had heart disorder. Scarlet fever as a child. Allergies Allergy/AdvReac Type Severity Reaction Status Date / Time No Known Allergies Allergy Unverified 07/10/23 19:06 Home Medications Medication Instructions Recorded Confirmed Type albuterol sulfate 90 mcg/actuation 2 puff inhalation Q6H PRN 06/04/24 06/04/24 History aerosol inhaler Shortness Of Breath Or Wheezing amlodipine 10 mg tablet 10 mg PO DAILY 06/04/24 06/04/24 History aspirin 81 mg tablet,delayed 81 mg PO DAILY 06/04/24 06/04/24 History release atorvastatin 40 mg tablet 40 mg PO DAILY 06/04/24 06/04/24 History buspirone 10 mg tablet 5 mg PO BID 06/04/24 06/04/24 History calcium carb-vit D3-minerals 600 1 tab PO DAILY 06/04/24 06/04/24 History mg calcium-400 unit tablet famotidine 20 mg tablet 20 mg PO DAILY 06/04/24 06/04/24 History fenofibrate nanocrystallized 145 145 mg PO DAILY 06/04/24 06/04/24 History mg tablet fluticasone fur. 200 mcg-umeclid 1 inh inhalation DAILY 06/04/24 06/04/24 History 62.5 mcg-vilant 25 mcg inhalat.powder (Trelegy Ellipta) gabapentin 100 mg capsule 100 mg PO BID 06/04/24 06/04/24 History icosapent ethyl 1 gram capsule 2 g PO BID 06/04/24 06/04/24 History isosorbide mononitrate 30 mg 30 mg PO DAILY 06/04/24 06/04/24 History tablet,extended release 24 hr lisinopril 20 mg tablet 20 mg PO DAILY 06/04/24 06/04/24 History metoprolol tartrate 25 mg tablet 25 mg PO BID 06/04/24 06/04/24 History mirtazapine 15 mg tablet 15 mg PO HS 06/04/24 06/04/24 History montelukast 10 mg tablet 10 mg PO DAILY 06/04/24 06/04/24 History omeprazole 20 mg capsule,delayed 40 mg PO DAILY 06/04/24 06/04/24 History release sertraline 100 mg tablet 100 mg PO DAILY 06/04/24 06/04/24 History Past Med/Surg History Problem List AAA (abdominal aortic aneurysm) without rupture (Acute) Acute hyponatremia (Acute) Hypercalcemia (Acute) Enteritis (Acute) Lower abdominal pain (Acute) Acute hypoxemic respiratory failure Sepsis (Acute) Pneumonia (Acute) Leukocytosis (Acute) Hypoxia (Acute) Hypertension JAMARI (acute kidney injury) Hyponatremia COPD exacerbation UTI (urinary tract infection) (Acute) Pneumonia (Acute) Hypokalemia (Acute) Anxiety (Chronic) GERD (gastroesophageal reflux disease) (Chronic) Dyslipidemia (Chronic) COPD (chronic obstructive pulmonary disease) (Chronic) RLS (restless legs syndrome) (Chronic) Hx of cholecystectomy (Chronic) History of appendectomy (Chronic) Hx of tonsillectomy (Chronic) Tobacco consumption Family History (Updated 07/27/18 @ 10:[address] MD) Other Diabetes Family history non-contributory Heart disease Social History Smoking Status: Current every day smoker Tobacco Type: Cigarettes Cigarettes Per Day: 1 pack per day; Hx Alcohol Use: No Hx Substance Use: Yes Last Used Substance: Unknown Preferred Language: Vietnamese Communication Ability: Effective Paraoptometric Required: No Beliefs That Will Affect Care: None Current Living Situation: Family Feels Safe at Home: Yes Assistive Devices: Cane and Other Review of Systems Review of Systems: All systems reviewed & are unremarkable except as noted in HPI & below Physical Exam Physical Exam: General- Not in distress.Cachectic appearing Head- atraumatic Eyes- PERRL. ENT- oropharynx clear Neck- supple, no JVD. Lungs- clear to auscultation no wheezing or crackles. Heart- regular rhythm; no murmur, no gallop. Abdomen- normal bowel sounds, soft, nontender, no distension Extremities- no pretibial edema, no erythema seen. Neuro- alert, oriented PERRL, no facial palsy; no dysarthria; moves extremities Results & Data Results & Data Vital Signs (Past 12 Hours) Vital Signs Temp Pulse Pulse Resp BP BP Pulse Ox 06/04/24 05:00 88 16 170/93 H 95 06/04/24 03:00 89 21 152/87 H 92 06/04/24 02:00 87 24 163/90 H 92 06/04/24 01:45 89 06/04/24 01:00 87 20 156/88 H 93 06/04/24 00:00 95 H 22 132/76 94 06/03/24 23:02 94 H 18 184/89 H 94 06/03/24 22:13 98 H 21 176/102 H 95 06/03/24 21:47 98 H 06/03/24 21:40 36.5 C 99 H 18 170/99 H 99 06/03/24 21:30 36.8 C 100 H 14 170/99 H 94 O2 Del Method 06/04/24 05:00 Room Air 06/04/24 03:00 Room Air 06/04/24 02:00 Room Air 06/04/24 01:45 06/04/24 01:00 Room Air 06/04/24 00:00 Room Air 06/03/24 23:02 Room Air 06/03/24 22:13 Room Air 06/03/24 21:47 06/03/24 21:40 Room Air 06/03/24 21:30 Room Air Diagnostic Findings Laboratory Results WBC 11.76 K/ul (4.8-10.8) H 06/03/24 21:37 RBC 4.05 M/uL (4.20-5.40) L 06/03/24 21:37 Hgb 12.5 g/dl (12.0-16.0) 06/03/24 21:37 Hct 35.0 % (37.0-47.0) L 06/03/24 21:37 MCV 86.4 fL (80.0-100.0) 06/03/24 21:37 MCH 30.9 pg (25.0-34.0) 06/03/24 21:37 MCHC 35.7 g/dL (32.0-36.0) 06/03/24 21:37 RDW Std Deviation 39.6 fL (36.4-46.3) 06/03/24 21:37 RDW Coeff of Carlos Manuel 12.4 % (11.5-14.5) 06/03/24 21:37 Plt Count 319 K/uL (130-400) 06/03/24 21:37 MPV 9.7 fL (9.4-12.4) 06/03/24 21:37 Immature Gran % (Auto) 0.4 % 06/03/24 21:37 Neut % (Auto) 86.4 % 06/03/24 21:37 Lymph % (Auto) 7.8 % 06/03/24 21:37 [place] % (Auto) 5.2 % 06/03/24 21:37 Eos % (Auto) 0.1 % 06/03/24 21:37 Baso % (Auto) 0.1 % 06/03/24 21:37 Neut # (Auto) 10.16 K/uL (1.40-6.50) H 06/03/24 21:37 Lymph # (Auto) 0.92 K/uL (1.20-3.40) L 06/03/24 21:37 [place] # (Auto) 0.61 K/uL (0.11-0.59) H 06/03/24 21:37 Eos # (Auto) 0.01 K/uL (0.00-0.50) 06/03/24 21:37 Baso # (Auto) 0.01 K/uL (0.00-0.20) 06/03/24 21:37 Immature Gran # (Auto) 0.05 K/uL (0.01-0.20) 06/03/24 21:37 Sodium 124 mmol/L (136-145) L 06/03/24 21:37 Potassium 3.6 mmol/L (3.5-5.1) 06/03/24 21:37 Chloride 89 mmol/L (98-107) L 06/03/24 21:37 Carbon Dioxide 24 mmol/L (21-32) 06/03/24 21:37 Anion Gap 11 (3-11) 06/03/24 21:37 BUN 31 mg/dl (6-23) H 06/03/24 21:37 Creatinine 0.86 mg/dl (0.6-1.2) 06/03/24 21:37 Est Cr Clr Drug Dosing 32.7 ml/min 06/03/24 21:37 Est GFR ( Amer) 75.5 ml/min 06/03/24 21:37 Est GFR (Non-Af Amer) 65.2 ml/min 06/03/24 21:37 BUN/Creatinine Ratio 36.0 (10-20) H 06/03/24 21:37 Glucose 135 mg/dl (70-99(Fasting)) H 06/03/24 21:37 Calcium 12.6 mg/dl (8.6-10.3) H* 06/03/24 21:37 Total Bilirubin 1.0 mg/dl (0.2-1.0) 06/03/24 21:37 AST 34 U/L (13-39) 06/03/24 21:37 ALT 16 U/L (7-52) 06/03/24 21:37 Alkaline Phosphatase 73 U/L (34-104) 06/03/24 21:37 Total Protein 7.9 gm/dl (6.0-8.3) 06/03/24 21:37 Albumin 4.4 gm/dl (3.4-5.0) 06/03/24 21:37 Globulin 3.5 gm/dl (2.5-4.0) 06/03/24 21:37 Albumin/Globulin Ratio 1.3 (0.9-2) 06/03/24 21:37 Lipase 81 U/L (11-82) 06/03/24 21:37 Urine Color Yellow 06/04/24 00:20 Urine Appearance Clear (Clear) 06/04/24 00:20 Urine pH 7.5 (4.5-7.5) 06/04/24 00:20 Ur Specific [place] 1.038 (1.000-1.030) H 06/04/24 00:20 Urine Protein Negative (Negative) 06/04/24 00:20 Urine Glucose (UA) Negative (Negative) 06/04/24 00:20 Urine Ketones Negative (Negative) 06/04/24 00:20 Urine Blood Negative (Negative) 06/04/24 00:20 Urine Nitrite Negative (Negative) 06/04/24 00:20 Urine Bilirubin Negative (Negative) 06/04/24 00:20 Urine Urobilinogen Negative (Negative) 06/04/24 00:20 Ur Leukocyte Esterase Negative (Negative) 06/04/24 00:20 Impressions Abdomen/Pelvis CT 06/03/24 23:13 Exam(s): CT ABDOMEN + PELVIS With Contrast IV Amt: 93 ML OPTIRAY 320 EXAM: CT Abdomen and Pelvis With Intravenous Contrast CLINICAL HISTORY: Reason for exam: lower abd pain. hx of AAA. TECHNIQUE: Axial computed tomography images of the abdomen and pelvis with intravenous contrast. CTDI is 6.43 mGy and DLP is 282.67 mGy-cm. Automated exposure control was utilized for the study. A dose lowering technique was utilized adhering to the principles of ALARA. CONTRAST: Patient received 93 ML OPTIRAY 320 of IV contrast COMPARISON: No relevant prior studies available. FINDINGS: Lung bases: Unremarkable. No mass. No consolidation. ABDOMEN: Liver: Unremarkable. No mass. Gallbladder and bile ducts: Cholecystectomy. No ductal dilation. Pancreas: Unremarkable. No mass. No ductal dilation. Spleen: Unremarkable. No splenomegaly. Adrenals: Unremarkable. No mass. Kidneys and ureters: LEFT upper pole renal cyst measures 1.6 cm. No hydronephrosis. Stomach and bowel: Mild fluid-filled small bowel, with mild wall thickening, concerning for mild enteritis. No obstruction. PELVIS: Appendix: No findings to suggest acute appendicitis. Bladder: Unremarkable. No mass. Reproductive: Unremarkable as visualized. ABDOMEN and PELVIS: Intraperitoneal space: Unremarkable. No free air. No significant fluid collection. Bones/joints: No acute fracture. No dislocation. Soft tissues: Unremarkable. Vasculature: Infrarenal abdominal aortic aneurysm, measures 7.0 x 3.3 x 4.1 cm. This has increased in size when compared to July 10, 2023. Vascular surgical evaluation recommended. Lymph nodes: Unremarkable. No enlarged lymph nodes. IMPRESSION: 1. Infrarenal abdominal aortic aneurysm, measures 7.0 x 3.3 x 4.1 cm. This has increased in size when compared to July 10, 2023. Vascular surgical evaluation recommended. 2. Mild fluid-filled small bowel, with mild wall thickening, concerning for mild enteritis. 3. Cholecystectomy. Electronically signed by: Lucio Augustine MD 06/04/24 01:01 AM ECG Additional Comments: ECG. Sinus tachycardia rate of 101. Possible left atrial enlargement. No acute ST changes seen. Code Status & VTE Plan VTE Prophylaxis Plan VTE Prophylaxis will be ordered: Yes
--- NOTE | 2024-06-04 07:01 | XRay Report ---
XR chest 1V not portable CLINICAL HISTORY: Chest pain. COMPARISON STUDY: Chest CT July 26, 2018. Chest radiograph July 10, 2023. FINDINGS: Emphysema. No pneumothorax or pleural effusion. Pulmonary vascularity is normal. Cardiomedi astinal silhouette is stable. A few patchy right lower lung opacities are noted. No consolidation wit hin the left lung. IMPRESSION: 1. A few patchy right lower lobe opacities which favor a mild infectious process. Radiographic follow -up to ensure resolution is recommended. 2. Emphysema. ACT 112: Negative or not required by law. Electronically signed by: Fabio Jenkins M.D. 06/04/2024 7:00 AM
[2024-06-04] MEDS ORDERED: NITROGLYCERIN SL 0.4 MG/TAB TAB SL PRN (08:24)
[2024-06-04] MEDS ORDERED: HYDROmorphone INJ 0.5 MG/0.5 ML SYR IV PRN (08:24)
[2024-06-04] MEDS ORDERED: ALBUTEROL HFA 8 GM INHALER INH PRN (08:24)
[2024-06-04] MEDS ORDERED: ONDANSETRON INJ 2 MG/ML 2 ML VIAL IV PRN (08:24)
[2024-06-04] MEDS: HEPARIN SOD 5,000 UNIT/0.5 ML VIAL SQ SCH (09:00)
[2024-06-04] MEDS ORDERED: NON-FORMULARY MEDICATION (Fluticasone-Umeclidin-Vilanter [Trelegy Ellipta] 200-62.5-25 mcg INH SCH (09:00)
[2024-06-04] MEDS: SODIUM CHLORIDE 0.9% 1,000 ML IV SCH (09:00)
[2024-06-04 09:16] LABS: Basophils # (auto) 0.02 K/uL (0.00-0.20); Basophils % (auto) 0.2 %; Eosinophils # (auto) 0.05 K/uL (0.00-0.50); Eosinophils % (auto) 0.5 %; Hemoglobin 11.7 g/dl (12.0-16.0); Immature Granulocytes # (auto) 0.06 K/uL (0.01-0.20); Immature Granulocytes % (auto) 0.6 %; Lymphocytes # (auto) 1.03 K/uL (1.20-3.40); Lymphocytes % (auto) 10.5 %; Mean Corpuscular Hemoglobin 30.8 pg (25.0-34.0); Mean Corpuscular Hgb Conc 35.5 g/dL (32.0-36.0); Mean Corpuscular Volume 86.8 fL (80.0-100.0); Mean Platelet Volume 9.6 fL (9.4-12.4); Monocytes % (auto) 7.1 %; Neutrophils # (auto) 7.97 K/uL (1.40-6.50); Neutrophils % (auto) 81.1 %; Platelet Count 298 K/uL (130-400); RDW Coefficient of Variation 12.7 % (11.5-14.5); RDW Standard Deviation 39.9 fL (36.4-46.3); White Blood Count 9.83 K/ul (4.8-10.8)
[2024-06-04 09:36] LABS: Potassium 3.4 mmol/L (3.5-5.1)
[2024-06-04] MEDS: ATORVASTATIN 40 MG TAB PO SCH (09:45)
[2024-06-04] MEDS: amLODIPine BESYLATE 5 MG TAB PO SCH (09:45)
[2024-06-04] MEDS: busPIRone 5 MG TAB PO SCH (09:45)
[2024-06-04] MEDS: SERTRALINE HCL 100 MG TABLET PO SCH (09:45)
[2024-06-04] MEDS: METOPROLOL TARTRATE 25 MG TAB PO SCH (09:45)
[2024-06-04] MEDS: GABAPENTIN 100 MG CAP PO SCH (09:46)
[2024-06-04] MEDS: ISOSORBIDE MONO EXTENDED REL 30 MG TABCR PO SCH (09:46)
[2024-06-04] MEDS: ASPIRIN 81 MG ECTAB PO SCH (09:46)
[2024-06-04] MEDS: PANTOprazole 40 MG TAB PO SCH (09:46)
[2024-06-04] MEDS: FAMOTIDINE 20 MG TAB PO SCH (09:46)
[2024-06-04] MEDS: lisinopril 20 MG TAB PO SCH (09:46)
[2024-06-04] MEDS: FENOFIBRATE NANOCRYSTALLIZED 145 MG TABLET PO SCH (09:46)
[2024-06-04] MEDS: MONTELUKAST SODIUM 10 MG TABLET PO SCH (09:46)
[2024-06-04] MEDS: FLUTICASONE FUROATE 200MCG 14 PUFFS/INHALER INH SCH (09:47)
[2024-06-04] MEDS: UMECLIDINIUM/VILANTEROL 62.5/25MCG 7 PUFFS/INHALER INH SCH (09:47)
--- OUTSIDE RECORDS SUMMARY | 2024-06-04 09:54 | External Medical Summary | Summary of Care ---
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 Name Role Phone Anabella Phi Primary Care Provider + [phone] Reason for Visit * Reason Onset Date Comments Appointment 04/10/2024 Upper endoscopy Encounter Details Date Type Department Care Team (Late st Contact Info) Description 04/10/2024 Telephone Gastroenterology, [place] [address] [place] [address] Specified, Isabel No Resource [address] [place] [address] Appointment (Upper endoscopy /) Allergies Active Allergy Reactions Criticality Noted Date Comments Ragweed 07/21/2014 documented as of this encounter (statuses as of 04/30/2024) Medications Medication Sig Dispensed Refills Start Date End Date Status Aspirin EC 81 MG Oral Tablet Delayed Release Take 1 Tablet by mouth in the morning. Active Melatonin 10 MG Oral Capsule Take 1 Capsule by mouth at bedtime. Active Lisinopril 20 MG Oral Tablet (Prinivil)Indicatio ns:Hypertensive kidney disease with stage 3b chronic kidney disease (HCC) Take 1 Tablet by mouth in the morning. 90 Tablet 3 05/29/2023 Active Isosorbide Mononitrate ER 30 MG Oral Tablet Extended Release 24 Hour (Imdur)Indications: NSTEMI (non-ST elevated myocardial infarction) (HCC) Take 1 tablet by mouth once daily 90 Tablet 3 08/21/2023 Active Metoprolol Tartrate 25 MG Oral Tablet (Lopressor)Indicati ons:NSTEMI (non-ST elevated myocardial infarction) ([facility]) Take 1 Tablet by mouth in the morning and 1 Tablet before bedtime. 180 Tablet 3 09/21/2023 Active Sertraline HCl 100 MG Oral Tablet (Zoloft)Indications :Anxiety Take 1 tablet by mouth once daily 90 Tablet 3 10/05/2023 Active amLODIPine Besylate 10 MG Oral Tablet (Norvasc)Indication s:HTN, goal below 140/90 Take 1 Tablet by mouth in the morning. 90 Tablet 3 12/24/2023 Active busPIRone HCl 10 MG Oral Tablet (Buspar) Take 1/2 (one-half) tablet by mouth twice daily 90 Tablet 5 01/03/2024 Active Trelegy Ellipta 200-62.5-25 MCG/ACT Aerosol Powder Breath Activated (Fluticasone-Umecli dinium-Vilanterol)I ndications:COPD, group B, by GOLD 2017 classification ([facility]) INHALE 1 PUFF ONCE DAILY 60 Each 5 01/02/2024 Active Omeprazole 20 MG Oral Capsule Delayed Release (PriLOSEC)Indicatio ns:Acute gastric ulcer, unspecified whether gastric ulcer hemorrhage or perforation present Take 2 capsules by mouth once daily 1 hour prior to breakfast 60 Capsule 5 01/02/2024 Active Icosapent Ethyl 1 GM Oral Capsule (Vascepa) TAKE 2 CAPSULES BY MOUTH TWICE DAILY WITH MORNING AND EVENING MEALS. SWALLOW CAPSULES WHOLE. DO NOT OPEN OR BREAK 01/02/2024 Active Albuterol Sulfate HFA 108 (90 Base) MCG/ACT Inhalation Aerosol SolutionIndications :COPD, group B, by GOLD 2017 classification ([facility]) Inhale 2 Puffs by mouth every 6 hours as needed for Cough, Shortness of Breath or Wheezing. 18 g 3 03/11/2024 Active Atorvastatin Calcium 40 MG Oral Tablet (Lipitor)Indication s:Dyslipidemia, goal LDL below 160 Take 1 Tablet by mouth in the morning. 90 Tablet 3 03/10/2024 Active Fenofibrate 145 MG Oral Tablet (Tricor)Indications :Hypertriglyceridem ia Take 1 Tablet by mouth in the morning. 90 Tablet 2 03/26/2024 Active Calcium-Vitamin D-Minerals 600-800 MG-UNIT Oral Tablet Chewable Take 1 Tablet by mouth in the morning. Active Gabapentin 100 MG Oral Capsule (Neurontin)Indicati ons:Right lumbar radiculopathy Take 1 cap at bedtime time 1 week then take 1 cap twice daily times 1 week then increase to 1 cap three times daily 90 Capsule 2 04/10/2024 Active Montelukast Sodium 10 MG Oral Tablet (Singulair)Indicati ons:Seasonal allergic rhinitis due to pollen Take 1 Tablet by mouth in the morning. 90 Tablet 3 04/10/2024 Active Famotidine 20 MG Oral Tablet (Pepcid)Indications :Gastroesophageal reflux disease without esophagitis Take 1 Tablet by mouth every evening. 04/10/2024 Active Mirtazapine 15 MG Oral Tablet (Remeron) TAKE 1 TABLET BY MOUTH AT BEDTIME 90 Tablet 1 09/11/2023 04/17/20 24 Discontinued Hospital, Clinic, or Other Facility Administered Medication Ordered Dose Route Frequency Start Date End Date Status Albuterol Sulfate (Proventil) (2.5 MG/3ML) 0.083% inhalation solution 2.5 mgIndications:COPD, group B, by GOLD 2017 classification ([facility]) 2.5 mg NEBULIZER PRN 06/30/2023 06/29/2024 Acti ve Albuterol Sulfate (Proventil) (5 MG/ML) 0.5% *conc* inhalation solution 2.5 mgIndications:COPD, group B, by GOLD 2017 classification ([facility]) 2.5 mg NEBULIZER PRN 06/30/2023 06/29/2024 Acti ve Albuterol Sulfate (Proventil) (2.5 MG/3ML) 0.083% inhalation solution 2.5 mgIndications:COPD (chronic obstructive pulmonary disease) with chronic bronchitis (HCC) 2.5 mg NEBULIZER Q4H PRN 08/06/2023 Active documented as of this encounter (statuses as of 04/30/2024) Active Problems Problem Noted Date Diagnosed Date Seasonal allergic rhinitis due to pollen 024 Prediabetes 12/22/2023 Chronic hypoxemic respiratory failure 12/21/2023 Mild cognitive impairment 12/21/2023 Renal artery stenosis 07/17/2023 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, bilateral 07/17/2023 Dysphagia 07/17/2023 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 05/29/2023 Age-related osteoporosis wit hout current pathological fracture 10/06/2022 Lumbar degenerative disc disease 04/27/2022 Right lumbar radiculopathy 04/27/2022 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 05/17/2021 Tobacco use disorder 05/17/2021 BMI less than 19,adult 05/17/2021 Abdominal aortic aneurysm (AAA) without rupture 03/11/2021 Overview: >>OVERVIEW FOR AAA (ABDOMINAL AORTIC ANEURYSM) (HCC) WRITTEN ON 03/11/2021 11:10 AM BY FABY GR LPN 3.6 cm AAA noted on CT Chest 01/26/21 DEVAN (generalized anxiety disorder) 02/09/2021 Multiple lung nodules 02/09/2021 Chronic kidney disease, stage 3b 01/25/2021 Overview: Per CKD protocol Hypertensive kidney disease with stage 3b chronic kidney disease 01/25/2021 Overview: Per CKD protocol Anemia due to stage 3b chronic kidney disease Overview: Per CKD protocol - Per CKD protocol Panlobular emphysema 05/15/2017 HTN, goal below 140/90 01/15/2017 [place] (myocardial infarction) 01/15/2017 Restless legs syndrome 04/06/2016 COPD, group B, by GOLD 2017 classification 08/28 Overview: Unable to classify severity based on 08/20/2014 PFT Gastroesophageal reflux disease without esophagi tis 07/21/2014 Dyslipidemia, goal LDL below 70 07/21/2014 Hiatal hernia documented as of this encounter (statuses as of 04/30/2024) Resolved Problems Problem Noted Date Diagnosed Date Resolved Date Chronic hypoxemic respiratory failure 12/21/2023 04/06/2024 Abdominal aortic aneurysm (A AA) without rupture 10/06/2022 11/08/2023 Abdominal aortic aneurysm (A AA) without rupture 10/06/2022 11/08/2023 Major depressive disorder with single episode 10/06/19 23 12/22/2023 NSTEMI (non-ST elevated myoc ardial infarction) 04/18/2021 05/27/2021 Anemia due to stage 3a chronic kidney disease 07/26/20 20 09/02/2020 Overview: Per CKD protocol Hypertensive kidney disease, stage III 01/22/2019 07/14/2019 Hypertensive kidney disease, stage III 10/30/2018 01/27/2021 Overview: Per CKD protocol Unspecified severe protein-c alorie malnutrition 10/30/2018 02/09/2021 Anemia in stage 3 chronic kidney disease 08/14/2018 07/29/2020 Overview: Per CKD protocol Hyponatremia 08/14/2018 02/09/2021 Kidney disease, chronic, sta ge III (GFR 30-59 ml/min) 06/24/2018 08/30/2018 Overview: Per CKD protocol #1 Hypertriglyceridemia 08/17/2014 021 Elevated blood pressure, situational 08/17/2014 01/15/2017 Anxiety state 07/21/2014 02/09/2021 documented as of this encounter (statuses as of 04/30/2024) Immunizations Name Administration Dates Next Due COVID-19 mRNA, LNP-s, No Pre serve, 2-Dose Series (Moderna) 08/29/2021,11/23/2020,10/25/2020 Covid-19, Mrna, Lnp-s, Pf, B ivalent, 50 Mcg, IM, 12 yrs and above (Moderna) 10/27/2022 Pneumococcal Conjugate Vacc, 13 Valent (Prevnar) 06/17/2015 Pneumococcal Conjugate Vaccine, 7 Valent 023 Pneumococcal Polysaccharide PPV23 (Pneumovax) 08/31/2014 TDAP (age 10 and older)(Boostrix) 07/21/2014 Varicella Zoster Vaccine (Adult) 07/21/2014 Zoster Vaccine Recombinant (Shingrix) 06/17/2020 ,04/17/2020 documented as of this encounter Social History Tobacco Use Types Packs/Day Years Used Date Smoking Tobacco: Every Day Cigarettes 1 50 Smokeless Tobacco: Never Comments:12/05/2023 1 pack da eva, declined pamphlet Alcohol Use Standard Drinks/Week Comments Not Currently 0 (1 standard drink = 0.6 oz pur e alcohol) AUDIT-C Answer Date Recorded Q1: How often do you have a drink containing alc ohol? Never 05/17/2021 Q2: How many drinks containi ng alcohol do you have on a typical day when you are drinking? Not asked 05/17/2021 Q3: How often do you have six or more drinks on one occasion? Never 05/17/2021 PHQ-2 Answer Date Recorded PHQ Adult Total Score 1 07/17/2023 Hunger Vital Sign Answer Date Recorded Within the past 12 months, y ou worried that your food would run out before you got the money to buy more. Never true 07/21/20 23 Within the past 12 months, t he food you bought just didn't last and you didn't have money to get more. Never true 07/21/2023 Childcare Answer Date Recorded Do you feel overwhelmed with taking care of a child, family member or friend? No 07/21/2023 Does your family need help f inding childcare? (Household - for ages 0-17 years) Not on file 07/21/2023 Clothing Answer Date Recorded Have you been unable to get clothing when it was really needed? No 07/21/2023 Is your family able to get c lothes or diapers when needed? (Household - for ages 0-17 years) Not on file 07/21/2023 Personal Safety Answer Date Recorded Do you feel unsafe or have concerns for your saf ety? No 07/21/2023 Do you have concerns for you r family's safety? (Household - for ages 0-17 years) Not on file 07/21/2023 Utilities Answer Date Recorded Do you have trouble paying y our heating, water, or electric bill? No 07/21/2023 Is your family able to pay t he heat, water, or electric bill? (Household - for ages 0-17 years) Not on file 07/21/2023 Does your family have access to good internet? (Household - for ages 0-17 years) Not on file 07/21/2023 Employment Status Answer Date Recorded Are you unemployed or without regular income? No 07/21/2023 Does the household have a re gular source of income? (Household - for ages 0-17 years) Not on file 07/21/2023 Social Connections Answer Date Recorded How often do you feel lonely or isolated from th ose around you? Rarely 07/21/2023 Financial Resource Strain Answer Date R ecorded Do you have any trouble payi ng for your medications, or do you think you might in the future? No 07/21/2023 Does your family have troubl e paying for medicine? (Household - for ages 0-17 years) Not on file 07/21/2023 Transportation Needs Answer Date Record ed READ ONLY Do you have troubl e getting a ride to medical visits or work? Never True 07/21/2023 Does your family have a hard time getting a ride to doctors visits? (Household - for ages 0-17 years) Not on file 07/21/2023 Has lack of transportation k ept you from medical appointments, meetings, work, or from getting things needed for daily living? Check all that apply. (Adult - for ages 18 years and over) Not on file 07/21/2023 Do you (or your family) have trouble finding or paying for a ride (transportation)? (Household - for ages 0-17 years) Not on file 07/21/2023 Housing Stability Answer Date Recorded Do you currently live in a s helter or have no steady place to sleep at night? No 07/21/2023 READ ONLY Do you think you a re at risk of becoming homeless? No 07/21/2023 Does your family worry about paying for your home or becoming homeless? (Household - for ages 0-17 years) Not on file 1 09/20/2022 Are you homeless or worried that you might be in the future? (Adult - for ages 18 years and over) Not on file Are you (or your family) byron eless or worried that you might be in the future? (Household - for ages 0-17 years) Not on file Food Insecurity Answer Date Recorded Do you need food for this week? No 07/21/2023 Are you able to get enough f ood for your family? (Household - for ages 0-17 years) Not on file 07/21/2023 Does your family need food t his week? (Household - for ages 0-17 years) Not on file 07/21/2023 Do you always have enough fo od for your family? (Household - for ages 0-17 years) Not on file 07/21/2023 Sex and Gender Information Value Date Recorded Sex Assigned at Female 01/22/2019 10:00 AM EDT Gender Identity Female 01/22/2019 10:00 AM EDT Sexual Orientation Straight 01/22/2019 10 :00 AM EDT Job Start Date Occupation Industry Not on file Not on file Not on file documented as of this encounter Miscellaneous Notes * Telephone Encounter - Ryann Graves OSA - 04/30/2024 2:04 PM EDT Scheduled GITA Edward 04/30/2024 2:04 PM * Telephone Encounter - Nicci Rodriguez OSA - 04/11/2024 11:07 AM EDT Lmm for pt. * Telephone Encounter - Shaina Parsons OSA - 04/10/2024 6:22 PM EDT Referral UPPER ENDOSCOPY GI REFERRAL OP [[id number]] (Order [id number]) Currently Active Insurance Payor Plan Subscriber Member ID Sonia BLAND Sonia BLAND CLASSIC 1 PART D LAURA GLOVER [id number] PCP Information Primary Care Provider Phi Kyle DO Order Information Date Department Ordering/Authorizing 04/10/2024 Family Practice [facility], [place] Phi Kyle DO Order Providers Authorizing Provider Encounter Provider Phi Kyle DO Dematteo, Dominic, DO Referral (Authorized) ID: [id number] Created on: 04/10/2024 Referred by Referred to Phi Kyle DO Gastroenterology Reason: Ancillary Services Required Priority: Within 10 days (routine) Type: Ancillary Services Visits Requested: 999 Decision Date: 04/10/2024 Start Date: 04/10/2024 Related Appointments None Associated Diagnoses Hiatal hernia [K44.9] Comments Upper Endoscopy ASGE Guidelines Upper abdominal symptoms that persist despite an appropriate trial of therapy ADDITIONAL INFORMATION 1. Is the patient on Coumadin? No 2. Is the patient on Pradaxa? No Status History Encounter View Encounter Order Questions Question Answer Referral Priority Within 10 days (routine) Where should this appointment be scheduled? [facility] Encounter View Encounter THIS REFERRAL HAS BEEN ELECTRONICALLY SIGNED * Administrative Questions: [phone] or [id number] Reprint Requisition UPPER ENDOSCOPY GI REFERRAL OP (Order #[id number]) on 04/10/24 documented in this encounter Plan of Treatment Upcoming Encounters Date Type Department Care Team (Latest Contact Info) Description 05/29/2024 2:00 PM EDT [facility] [address] [place] [id number] Martha, Nurse Annual Wellness Visit [address] [facility] [address] [place] [address] 07/11/2024 2:20 PM EDT Office Visit Family Practice [facility], [place] [address] [place] [address] Phi Kyle, DO [address] [place] [address] 08/13/2024 10:36 AM EST Hospital Encounter OR [facility], Operating Room, [place] - 4th Floor [address] [place] [address] Aakash Marina MD [address] [place] [phone] 08/13/2024 10:36 AM EST - 08/13/2024 11:03 AM EST Surgery OR [facility], Operating Room, [place] - 4th Floor [address] [place] [address] Aakash Marina MD [address] [place] [phone] ESOPHAGOGASTRODUODENOSCOPY (EGD), FLEXIBLE, TRANSORAL, DIAGNOSTIC Scheduled Procedures Name Priority Associated Diagnoses Date/Ti me ESOPHAGOGASTRODUODENOSCOPY ( EGD), FLEXIBLE, TRANSORAL, DIAGNOSTIC Hiatal hernia 08/13/2024 10:36 AM EST Health Maintenance Due Date Last Done Comments Adult Wellness Visit 2013 *BISPHONATE OR OTHER ACCEPTABLE MEDICATION NEEDED FOR OSTEOPOROSIS (REFER TO SMARTSET #1146) 10/09/2022 COVID-19 Vaccine ( season) 2023 10/27/2022, 08/29/2021, 11/23/2020, Additional history exists DISCUSS TOBACCO CESSATION (REFER TO SMARTSET #3291) 09/22/2023 09/22/2022, 07/29/2021, 05/17/2021 CKD PHOS USE SMARTSET 29419 10/12/202309/18, 08/21/2020, 01/10/2019 DXA Scan 12/21/2023 12/20/2021, 12/20/2021 GFR 05/13/2024 11/13/2023, 07/19, 06/28/2023, Additional history exists Influenza Vaccine (FLU shot) (#1) 2024 Albumin/Creatinine Ratio 07/17/2024 07/17/2023, 09/18 Depression Screening 07/17/2024 07/17/2023 DTaP,Tdap,and Td Vaccines (2 - Td or Tdap) 07/21/2024 07/21/2014 HbA1c 08/13/2024 08/13/2023 CKD HGB USE SMARTSET 33220 11/13/202411/13, 11/13/2023, 08/13/2023, Additional history exists O2 ASSESSMENT COMPLETED IN PAST YEAR FOR COPD 04/10/2025 04/10/2024 Alpha-1 Antitrypsin Completed 03/23/2017 VITAMIN D LEVEL ONCE IN A LIFETIME-USE SMARTSET# [id number] Completed 08/14/2018, 05/19/2016, 07/31/2014 Zoster Vaccines Completed 06/17/2020, 11/2019, 04/17/2020, Additional history exists Cologuard Discontinued 10/20/2021, 09/18, 10/13/2021, Additional history exists Colorectal Cancer Screening Discontinued Pneumococcal Vaccine: 65+ Years Completed 10/27/2022, 06/17/2015, 08/31/2014 Lung Cancer Screening Completed 09/06/2023 , 08/15/2022, 07/18/2021, Additional history exists Colonoscopy Discontinued Fecal Occult Blood Test Discontinued HPV (Gardasil) Vaccine Aged Out No lo nger eligible based on patient's age to complete this topic Hepatitis B Vaccine Aged Out No longe r eligible based on patient's age to complete this topic MENINGOCOCCAL (MENACTRA/MENVEO) Aged Out No longer eligible based on patient's age to complete this topic Sigmoidoscopy Discontinued documented as of this encounter Medical Devices Not on filedocumented as of this encounter Care Teams Milk 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
--- OUTSIDE RECORDS SUMMARY | 2024-06-04 09:54 | External Medical Summary | Summary of Care ---
Author Name Unknown Organization [facility] Address [address] [place] [address] Phone [phone] Care Team Providers Care Sanitary Plumber Name Role Phone AnabellaPhi armstrong Primary Care Provider + [phone] Encounter Details Date Type Department Care Team (Late st Contact Info) Description 01/25/2024 Telephone Care Coordination and Integration [address], [place] [id number] Tressa Ray, RN [address] [place] [address] Allergies Active Allergy Reactions Criticality Noted Date Comments Ragweed 07/21/2014 documented as of this encounter (statuses as of 04/25/2024) Medications Medication Sig Dispensed Refills Start Date End Date Status Aspirin EC 81 MG Oral Tablet Delayed Release Take 1 Tablet by mouth in the morning. Active Melatonin 10 MG Oral Capsule Take 1 Capsule by mouth at bedtime. Active Lisinopril 20 MG Oral Tablet (Prinivil)Indications :Hypertensive kidney disease with stage 3b chronic kidney disease (HCC) Take 1 Tablet by mouth in the morning. 90 Tablet 3 05/29/2023 Active Isosorbide Mononitrate ER 30 MG Oral Tablet Extended Release 24 Hour (Imdur)Indications:NS VASILIY (non-ST elevated myocardial infarction) (HCC) Take 1 tablet by mouth once daily 90 Tablet 3 08/21/2023 Active Metoprolol Tartrate 25 MG Oral Tablet (Lopressor)Indication s:NSTEMI (non-ST elevated myocardial infarction) (HCC) Take 1 Tablet by mouth in the morning and 1 Tablet before bedtime. 180 Tablet 09/21/2023 Active Sertraline HCl 100 MG Oral Tablet (Zoloft)Indications:A nxiety Take 1 tablet by mouth once daily 90 Tablet 10/05/2023 Active amLODIPine Besylate 10 MG Oral Tablet (Norvasc)Indications: HTN, goal below 140/90 Take 1 Tablet by mouth in the morning. 90 Tablet 12/24/2023 Active busPIRone HCl 10 MG Oral Tablet (Buspar) Take 1/2 (one-half) tablet by mouth twice daily 90 Tablet 01/03/2024 Active Trelegy Ellipta 200-62.5-25 MCG/ACT Aerosol Powder Breath Activated (Fluticasone-Umeclidi nium-Vilanterol)Indic ations:COPD, group B, by GOLD 2017 classification ([facility]) INHALE 1 PUFF ONCE DAILY 60 Each 01/02/2024 Active Omeprazole 20 MG Oral Capsule Delayed Release (PriLOSEC)Indications :Acute gastric ulcer, unspecified whether gastric ulcer hemorrhage or perforation present Take 2 capsules by mouth once daily 1 hour prior to breakfast 60 Capsule 01/02/2024 Active Hospital, Clinic, or Other Facility Administered Medication Ordered Dose Route Frequency Start Date End Date Status Albuterol Sulfate (Proventil) (2.5 MG/3ML) 0.083% inhalation solution 2.5 mgIndications:COPD, group B, by GOLD 2017 classification ([facility]) 2.5 mg NEBULIZER PRN 06/30/2023 06/29/2024 Acti ve Albuterol Sulfate (Proventil) (5 MG/ML) 0.5% *conc* inhalation solution 2.5 mgIndications:COPD, group B, by GOLD 2017 classification ([facility]) 2.5 mg NEBULIZER PRN 06/30/2023 06/29/2024 Acti ve Albuterol Sulfate (Proventil) (2.5 MG/3ML) 0.083% inhalation solution 2.5 mgIndications:COPD (chronic obstructive pulmonary disease) with chronic bronchitis (HCC) 2.5 mg NEBULIZER Q4H PRN 08/06/2023 Active documented as of this encounter (statuses as of 04/25/2024) Active Problems Problem Noted Date Diagnosed Date Seasonal allergic rhinitis due to pollen 024 Prediabetes 12/22/2023 Chronic hypoxemic respiratory failure 12/21/2023 Mild cognitive impairment 12/21/2023 Renal artery stenosis 07/17/2023 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, bilateral 07/17/2023 Dysphagia 07/17/2023 Coronary artery disease invo lving [place] coronary artery of [place] heart without angina pectoris 05/29/2023 Age-related osteoporosis [...] 05/15/2017 HTN, goal below 140/90 01/15/2017 Old [place] (myocardial infarction) 01/15/2017 Restless legs syndrome 04/06/2016 COPD, group B, by GOLD 2017 classification 08/28 Overview: Unable to classify severity based on 08/20/2014 PFT Gastroesophageal reflux disease without esophagi tis 07/21/2014 Dyslipidemia, goal LDL below 70 07/21/2014 Hiatal hernia documented as of this encounter (statuses as of 04/25/2024) Resolved Problems Problem Noted Date Diagnosed Date Resolved Date Chronic hypoxemic respiratory failure 12/21/2023 04/06/2024 Abdominal aortic aneurysm (A AA) without rupture 10/06/2022 11/08/2023 Abdominal aortic aneurysm (A AA) without rupture 10/06/2022 11/08/2023 Major depressive disorder with single episode 10/06/19 23 12/22/2023 NSTEMI (non-ST elevated myoc ardial infarction) 04/18/2021 05/27/2021 Anemia due to stage 3a chronic kidney disease 07/26/2009/02/2020 Overview: Per CKD protocol Hypertensive kidney disease, [...] as of this encounter (statuses as of 04/25/2024) Immunizations Name Administration Dates Next Due COVID-19 [...] No 07/21/2023 Does the household have a [facility] source of income? (Household - for ages [...] encounter Miscellaneous Notes * Telephone Encounter - Tressa Ray RN - 01/25/2024 8:49 AM EDT Please discharge the patient from [facility] ([facility] [place] [place]). Device(s)/IVR to be discontinued: Ivr calls due to completion. Thank you. documented in this encounter Plan of Treatment Upcoming Encounters Date Type Department Care Team (Late st Contact Info) Description 05/29/2024 2:00 PM EDT Nurse Only Ancillary [address] [place] [address] Martha Nurse Annual Wellness Visit [address] [place] [address] 07/11/2024 2:20 PM EDT Office Visit Family Practice 65 [address] [place] [address] Phi Kyle, [address] [place] [address] Health Maintenance Due Date Last Done Comments Adult Wellness Visit 2013 *BISPHONATE OR OTHER ACCEPTABLE MEDICATION NEEDED FOR OSTEOPOROSIS (REFER TO SMARTSET #1146) 10/09/2022 COVID-19 Vaccine ( season) 2023 10/27/2022, 08/29/2021, 11/23/2020, Additional history exists DISCUSS TOBACCO CESSATION (REFER TO SMARTSET #3291) 09/22/2023 09/22/2022, 07/29/2021, 05/17/2021 CKD PHOS USE SMARTSET 36017 10/12/202309/18, 08/21/2020, 01/10/2019 DXA Scan 12/21/2023 12/20/2021, 12/20/2021 GFR 05/13/2024 11/13/2023, 07/19, 06/28/2023, Additional history exists Influenza Vaccine (FLU shot) (#1) 2024 Albumin/Creatinine Ratio 07/17/2024 07/17/2023, 09/18 Depression Screening 07/17/2024 07/17/2023 DTaP,Tdap,and Td Vaccines (2 - Td or Tdap) 07/21/2024 07/21/2014 HbA1c 08/13/2024 08/13/2023 CKD HGB USE SMARTSET 59709 11/13/202411/13, 11/13/2023, 08/13/2023, Additional history exists O2 ASSESSMENT COMPLETED IN PAST YEAR FOR COPD 04/10/2025 04/10/2024 Alpha-1 Antitrypsin Completed 03/23/2017 VITAMIN D LEVEL ONCE IN A LIFETIME-USE SMARTSET# [id number] Completed 08/14/2018, 05/19/2016, 07/31/2014 Zoster Vaccines Completed [...] filedocumented as of this encounter Care Teams Sanitary Plumber Relationship Specialty Start Date End Date Phi Kyle DO [address] [place] [phone] PCP - General Family Medicine 08/16/23 documented as of this encounter
--- OUTSIDE RECORDS SUMMARY | 2024-06-04 09:54 | External Medical Summary | Summary of Care ---
Author Name Unknown Organization [facility] Address [address] [facility] [place] [address] Phone [phone] Care Team Providers Care Skirt Panel Assembler Name Role Phone Arabella Kyle DO Primary Care Provider [phone] Reason for Visit * Reason Comments eRx-Medication Refill Encounter Details Date Type Department Care Team (Late st Contact Info) Description 04/17/2024 Refill Family Practice [facility] [address] [facility] [place] [phone] Arabella Kyle DO [address] [place] [address] Allergies Active Allergy Reactions Criticality Noted Date Comments Ragweed 07/21/2014 documented as of this encounter (statuses as of 04/17/2024) Medications Medication Sig Dispensed Refills Start Date [...] Hour (Imdur)Indications: NSTEMI (non-ST elevated myocardial infarction) ([facility]) Take 1 tablet by mouth once daily 90 Tablet 3 08/21/2023 Active Metoprolol Tartrate 25 MG Oral Tablet (Lopressor)Indicati ons:NSTEMI (non-ST elevated myocardial infarction) ([facility]) Take 1 Tablet by mouth in the [...] ndications:COPD, group B, by GOLD 2017 classification ([facility]) INHALE 1 PUFF ONCE DAILY 60 Each [...] :COPD, group B, by GOLD 2017 classification ([facility]) Inhale 2 Puffs by mouth every 6 [...] TABLET BY MOUTH AT BEDTIME 90 Tablet 04/17/2024 Active Mirtazapine 15 MG Oral Tablet (Remeron) TAKE 1 TABLET BY MOUTH AT BEDTIME 90 Tablet 1 09/11/2023 04/17/20 24 Discontinued Hospital, Clinic, or Other Facility Administered Medication Ordered Dose Route Frequency Start Date End Date Status Albuterol Sulfate (Proventil) (2.5 MG/3ML) 0.083% inhalation solution 2.5 mgIndications:COPD, group B, by GOLD 2017 classification ([facility]) 2.5 mg NEBULIZER PRN 06/30/2023 06/29/2024 Acti ve Albuterol Sulfate (Proventil) (5 MG/ML) 0.5% *conc* inhalation solution 2.5 mgIndications:COPD, group B, by GOLD 2017 classification ([facility]) 2.5 mg NEBULIZER PRN 06/30/2023 06/29/2024 Acti ve Albuterol Sulfate (Proventil) (2.5 MG/3ML) 0.083% inhalation solution 2.5 mgIndications:COPD (chronic obstructive pulmonary disease) with chronic bronchitis (HCC) 2.5 mg NEBULIZER Q4H PRN 08/06/2023 Active documented as of this encounter (statuses as of 04/17/2024) Active Problems Problem Noted Date Diagnosed Date Seasonal allergic rhinitis due to pollen 024 Prediabetes 12/22/2023 Chronic hypoxemic respiratory failure 12/21/2023 Mild cognitive impairment 12/21/2023 Renal artery stenosis 07/17/2023 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, bilateral 07/17/2023 Dysphagia 07/17/2023 Coronary artery disease invo lving [place] coronary artery of [place] heart without angina pectoris 05/29/2023 Age-related osteoporosis [...] 05/15/2017 HTN, goal below 140/90 01/15/2017 Old [place] (myocardial infarction) 01/15/2017 Restless legs syndrome 04/06/2016 COPD, group B, by GOLD 2017 classification 08/28 Overview: Unable to classify severity based on 08/20/2014 PFT Gastroesophageal reflux disease without esophagi tis 07/21/2014 Dyslipidemia, goal LDL below 70 07/21/2014 Hiatal hernia documented as of this encounter (statuses as of 04/17/2024) Resolved Problems Problem Noted Date Diagnosed Date [...] as of this encounter (statuses as of 04/17/2024) Immunizations Name Administration Dates Next Due COVID-19 [...] 52 Smokeless Tobacco: Never Comments:12/05/2023 1 pack irais velasquez, declined pamphlet Alcohol Use Standard Drinks/Week Comments [...] encounter Miscellaneous Notes * Telephone Encounter - Arabella Kyle DO - 04/17/2024 4:03 PM EDTSigned Prescriptions: Disp Refills Mirtazapine 15 MG Oral Tablet (Remeron) 90 Tab*0 Sig: TAKE 1 TABLET BY MOUTH AT BEDTIME Authorizing Provider: ARABELLA KYLE * Telephone Encounter - Marquise Vaughn [facility] - 04/17/2024 3:49 PM EDT Pending Prescriptions: Disp Refills Mirtazapine 15 MG Oral Tablet 90 Tab*0 Sig: TAKE 1 TABLET BY MOUTH AT BEDTIME * Telephone Encounter - Marquise Vaughn [facility] - 04/17/2024 3:45 PM EDT Unable to authorize medication refills for pended medication(s) at this time. Part of the protocol criteria used for refill authorization was not satisfied. Patient wbc and lipids outside normal limits. Please approve if appropriate. Pending Prescriptions: Disp Refills Mirtazapine 15 MG Oral Tablet (Remeron) [*90 Tab*0 Sig: TAKE 1 TABLET BY MOUTH AT BEDTIME Last Visit: 06/28/2023 (in office), Visit date not found (telemedicine) Next Visit: Visit date not found If no future appointments scheduled, and last appointment is greater than a year ago, please schedule patient for a follow-up appointment Last date the medication was ordered: 09/11/2023 [facility] [address] [address] Is this request for a controlled substance? No Urine Drug Screen:No results found for this or any previous visit. Patient Phone Numbers Labs: Lab Results Component Value Date/Time CREAT 1.1 (H) 11/13/2023 10:07 AM CREAT 1.3 (H) 08/21/2020 09:26 AM POTASSIUM 3.8 11/13/2023 10:07 AM POTASSIUM 3.6 08/21/2020 09:26 AM TSH 1.63 08/13/2023 03:33 PM TSH 0.81 11/08/2019 09:27 AM LDLCALC UNINTERPRETABLE RESULT 08/06/2018 04:21 PM LDLDIRECT 30 11/13/2023 10:07 AM LDLDIRECT 45 08/21/2020 09:26 AM ALT 22 08/13/2023 03:33 PM ALT 14 08/21/2020 09:26 AM HGBA1C 5.8 (H) 08/13/2023 03:33 PM Thank you, Federico Vaughn, PharmD Clinical Pharmacist [facility] 04/17/24 3:46 PM [phone] documented in this encounter Plan of Treatment Upcoming Encounters Date Type Department Care Team (Late st Contact Info) Description 05/29/2024 2:00 PM EDT Nurse Only Ancillary [address] [place] [address] [place] [address] Nurse Martha Annual Wellness Visit [address] [place] [address] 07/11/2024 2:20 PM EDT Office Visit Family Practice [address] [place] [address] [place] [address] Arabella Kyle, [address] [place] [address] Health Maintenance Due Date Last Done Comments *BISPHONATE OR OTHER ACCEPTABLE MEDICATION NEEDED FOR OSTEOPOROSIS (REFER TO SMARTSET #1146) 10/09/2022 COVID-19 Vaccine ( season) 2023 10/27/2022, 08/29/2021, 11/23/2020, Additional history exists DISCUSS TOBACCO CESSATION (REFER TO SMARTSET #3291) 09/22/2023 09/22/2022, 07/29/2021, 05/17/2021 CKD PHOS USE SMARTSET 28599 10/12/202309/18, 08/21/2020, 01/10/2019 DXA Scan 12/21/2023 12/20/2021, 12/20/2021 GFR 05/13/2024 11/13/2023, 07/19, 06/28/2023, Additional history exists Influenza Vaccine (FLU shot) (#1) 2024 Albumin/Creatinine Ratio 07/17/2024 07/17/2023, 09/18 Depression Screening 07/17/2024 07/17/2023 DTaP,Tdap,and Td Vaccines (2 - Td or Tdap) 07/21/2024 07/21/2014 HbA1c 08/13/2024 08/13/2023 CKD HGB USE SMARTSET 34194 11/13/202411/13, 11/13/2023, 08/13/2023, Additional history exists O2 ASSESSMENT COMPLETED IN PAST YEAR FOR COPD 04/10/2025 04/10/2024 Alpha-1 Antitrypsin Completed 03/23/2017 VITAMIN D LEVEL ONCE IN A LIFETIME-USE SMARTSET# [id number] Completed 08/14/2018, 05/19/2016, 07/31/2014 Zoster Vaccines Completed [...] filedocumented as of this encounter Care Teams Skirt Panel Assembler Relationship Specialty Start Date End Date Arabella Kyle DO [address] [place] [phone] PCP - General Family Medicine 08/16/23 documented as of this encounter
--- OUTSIDE RECORDS SUMMARY | 2024-06-04 09:54 | External Medical Summary | Summary of Care ---
Author Name Unknown Organization [facility] Address [address] [facility] [place] [address] Phone [phone] Care Team Providers Care Cushion Maker Name Role Phone Phi Kyle DO Primary Care Provider [phone] Encounter Details Date Type Department Care Team (Late st Contact Info) Description 05/13/2024 Telephone Family Practice [address] [facility] [address] [place] [address] Phi Kyle DO [address] [place] [address] Allergies Active Allergy Reactions Criticality Noted Date Comments Ragweed 07/21/2014 documented as of this encounter (statuses as of 05/14/2024) Medications Medication Sig Dispensed Refills Start Date [...] ations:COPD, group B, by GOLD 2017 classification ([facility]) INHALE 1 PUFF ONCE DAILY 60 Each 01/02/2024 Active Omeprazole 20 MG Oral Capsule Delayed Release (PriLOSEC)Indications :Acute gastric ulcer, unspecified whether gastric ulcer hemorrhage or perforation present Take 2 capsules by mouth once daily 1 hour prior to breakfast 60 Capsule 01/02/2024 Active Icosapent Ethyl 1 GM Oral Capsule (Vascepa) TAKE 2 CAPSULES BY MOUTH TWICE DAILY WITH MORNING AND EVENING MEALS. SWALLOW CAPSULES WHOLE. DO NOT OPEN OR BREAK 01/02/2024 Active Albuterol Sulfate HFA 108 (90 Base) MCG/ACT Inhalation Aerosol SolutionIndications:C OPD, group B, by GOLD 2017 classification ([facility]) Inhale 2 Puffs by mouth every 6 hours as needed for Cough, Shortness of Breath or Wheezing. 18 g 3 03/11/2024 Active Atorvastatin Calcium 40 MG Oral Tablet (Lipitor)Indications: Dyslipidemia, goal LDL below 160 Take 1 Tablet by mouth in the morning. 90 Tablet 3 03/10/2024 Active Fenofibrate 145 MG Oral Tablet (Tricor)Indications:H ypertriglyceridemia Take 1 Tablet by mouth in the morning. 90 Tablet 2 03/26/2024 Active Calcium-Vitamin D-Minerals 600-800 MG-UNIT Oral Tablet Chewable Take 1 Tablet by mouth in the morning. Active Gabapentin 100 MG Oral Capsule (Neurontin)Indication s:Right lumbar radiculopathy Take 1 cap at bedtime time 1 week then take 1 cap twice daily times 1 week then increase to 1 cap three times daily 90 Capsule 2 04/10/2024 Active Montelukast Sodium 10 MG Oral Tablet (Singulair)Indication s:Seasonal allergic rhinitis due to pollen Take 1 Tablet by mouth in the morning. 90 Tablet 3 04/10/2024 Active Famotidine 20 MG Oral Tablet (Pepcid)Indications:G astroesophageal reflux disease without esophagitis Take 1 Tablet by mouth every evening. 04/10/2024 Active Mirtazapine 15 MG Oral Tablet (Remeron) TAKE 1 TABLET BY MOUTH AT BEDTIME 90 Tablet 04/17/2024 Active Hospital, Clinic, or Other Facility Administered Medication Ordered Dose Route Frequency Start Date End Date Status Albuterol Sulfate (Proventil) (2.5 MG/3ML) 0.083% inhalation solution 2.5 mgIndications:COPD, group B, by GOLD 2017 classification ([facility]) 2.5 mg NEBULIZER PRN 06/30/2023 06/29/2024 Acti ve Albuterol Sulfate (Proventil) (5 MG/ML) 0.5% *conc* inhalation solution 2.5 mgIndications:COPD, group B, by GOLD 2017 classification ([facility]) 2.5 mg NEBULIZER PRN 06/30/2023 06/29/2024 Acti ve Albuterol Sulfate (Proventil) (2.5 MG/3ML) 0.083% inhalation solution 2.5 mgIndications:COPD (chronic obstructive pulmonary disease) with chronic bronchitis (HCC) 2.5 mg NEBULIZER Q4H PRN 08/06/2023 Active documented as of this encounter (statuses as of 05/14/2024) Active Problems Problem Noted Date Diagnosed Date Seasonal allergic rhinitis due to pollen 024 Prediabetes 12/22/2023 Chronic hypoxemic respiratory failure 12/21/2023 Mild cognitive impairment 12/21/2023 Renal artery stenosis 07/17/2023 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, bilateral 07/17/2023 Dysphagia 07/17/2023 Coronary artery disease invo lving [place] coronary artery of [place] heart without angina pectoris 05/29/2023 Age-related osteoporosis [...] as of this encounter (statuses as of 05/14/2024) Resolved Problems Problem Noted Date Diagnosed Date [...] as of this encounter (statuses as of 05/14/2024) Immunizations Name Administration Dates Next Due COVID-19 [...] encounter Miscellaneous Notes * Telephone Encounter - Radha Arita CCMA - 05/13/2024 1:28 PM EDT Noted * Telephone Encounter - Phi Kyle DO - 05/13/2024 11:34 AM EDT See my Multis[employer] message X-ray lumbar spine previously ordered and may be completed at patient's earliest convenience. DEXA scan order authorized. Lab studies previously ordered for CBC, CMP and lipase level to be completed. * Telephone Encounter - Cierra Lagos LPN - 05/13/2024 10:16 AM EDT Daughter Malgorzata called with some questions. Pt is willing to have a Dexa scan. Pended the order. Pt is due for some Lab work, and they are wanting to know if you would like to add to the order. Questioned having kidney function and Albumin/creatinine ratio done also at this time. They would like to get all the lab work done at the same time. Malgorzata also states her mother is not active and doesn't eat much. Laura has leg weakness. Daughter asked about X-rays. Daughter states her mom has cancelled several appt but is now willing to have some of these needed things done. Please advise. Daughter Malgorzata said we can call her cell # [phone] or message her on [employer] portal documented in this encounter Plan of Treatment Upcoming Encounters Date Type Department Care Team (Latest Contact Info) Description 05/30/2024 2:00 PM EDT Nurse Only Ancillary [address] [facility] [address] [place] [address] College, Nurse Annual Wellness Visit [address] [facility] [address] [place] [address] 07/11/2024 2:20 PM EDT Office Visit Family Practice [address] [place] [address] [place] [address] Phi Kyle DO [address] [place] [address] 08/13/2024 9:19 AM EST Hospital Encounter OR [facility], Operating Room, [facility] - 4th Floor [address] [place] [phone] Aakash Marina MD [address] [place] [address] 08/13/2024 9:19 AM EST - 08/13/2024 9:46 AM EST Surgery OR [facility], Operating Room, [facility] - 4th Floor [address] [place] [phone] Aakash Marina MD [address] [place] [address] ESOPHAGOGASTRODUODENOSCOPY (EGD), FLEXIBLE, TRANSORAL, DIAGNOSTIC Scheduled Orders Name Type Priority Associated Diagnoses Orde r Schedule DEXA SCAN/BONE MINERAL AXIAL Medical Imaging Routine Localized osteoporosis without current pathological fracture Ordered: 05/13/2024 Scheduled Procedures Name Priority Associated Diagnoses Date/Ti ri ESOPHAGOGASTRODUODENOSCOPY ( EGD), FLEXIBLE, TRANSORAL, DIAGNOSTIC Hiatal hernia 08/13/2024 9:19 AM EST Health Maintenance Due Date Last Done Comments Adult Wellness Visit 2013 *BISPHONATE OR OTHER ACCEPTABLE MEDICATION NEEDED FOR OSTEOPOROSIS (REFER TO SMARTSET #1146) 10/09/2022 COVID-19 Vaccine (2022-24 season) 2023 10/27/2022, 08/29/2021, 11/23/2020, Additional history exists DISCUSS TOBACCO CESSATION (REFER TO SMARTSET #3291) 09/22/2023 09/22/2022, 07/29/2021, 05/17/2021 CKD PHOS USE SMARTSET 92629 10/12/202309/18, 08/21/2020, 01/10/2019 DXA Scan 12/21/2023 12/20/2021, 12/20/2021 GFR 05/13/2024 11/13/2023, 07/19, 06/28/2023, Additional history exists Influenza Vaccine (FLU shot) (#1) 2024 Albumin/Creatinine Ratio 07/17/2024 07/17/2023, 09/18 Depression Screening 07/17/2024 07/17/2023 DTap/Tdap Vaccines (2 - Td or Tdap) 07/21/2024 07/21/2014 HbA1c 08/13/2024 08/13/2023 CKD HGB USE SMARTSET [id number] 11/13/202411/13, 11/13/2023, 08/13/2023, Additional history exists O2 ASSESSMENT COMPLETED IN PAST YEAR FOR COPD 04/10/2025 04/10/2024 Alpha-1 Antitrypsin Completed 03/23/2017 VITAMIN D LEVEL ONCE IN A LIFETIME-USE SMARTSET# [id number] Completed 08/14/2018, 05/19/2016, 07/31/2014 Zoster Vaccines Completed [...] Not on filedocumented as of this encounter Visit Diagnoses Diagnosis Localized osteoporosis without current pathological fracture- Primary Hiatal hernia Diaphragmatic hernia without mention of obstruction or gangrene documented in this encounter Care Teams Cushion Maker Relationship Specialty Start Date End Date Phi Kyle DO [address] [place] [address] PCP - General Family Medicine 08/16/23 documented as of this encounter
--- OUTSIDE RECORDS SUMMARY | 2024-06-04 09:55 | External Medical Summary | Summary of Care ---
Author Name Unknown Organization [facility] Address [address] [facility] [place] [address] Phone [phone] Care Team Providers Care Credit Advisor Name Role Phone Phi Kyle DO Primary Care Provider + [phone] Reason for Referral * Ancillary Services (Within 10 days (routine)) - Authorized Specialty Diagnoses / Procedures Referred By Mary Kay lu Referred To Contact Gastroenterology Diagnoses Hiatal hernia Phi Kyle DO [address] [place] [address] Referral ID Status Reason Start Date Expiration Date Visits Requested Visits Authorized [id number] Authorized Ancillary Services Required 04/10/2024 [id number] Question Answer Referral Priority Within 10 days (routine) Where should this appointment be scheduled? Nancy Comments Upper Endoscopy ASGE Guidelines Upper abdominal symptoms that persist despite an appropriate trial of therapy ADDITIONAL INFORMATION 1. Is the patient on Coumadin? No 2. Is the patient on Pradaxa? 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); Tobacco use disorder; Seasonal allergic rhinitis due to pollen; Gastroesophageal reflux disease without esophagitis; Hiatal hernia; Prediabetes; Lumbar degenerative disc disease; Right lumbar radiculopathy; Age-related osteoporosis without current pathological fracture; Abdominal aortic aneurysm (AAA) without rupture, unspecified part (HCC); DEVAN (generalized anxiety disorder); Risk and functional assessment Allergies Active Allergy Reactions Criticality Noted Date Comments Ragweed 07/21/2014 documented as of this encounter (statuses as of 04/12/2024) Medications Medication Sig Dispensed Refills Start Date End Date Status Aspirin EC 81 MG Oral Tablet Delayed Release Take 1 Tablet by mouth in the morning. Active Melatonin 10 MG Oral Capsule Take 1 Capsule by mouth at bedtime. Active Lisinopril 20 MG Oral Tablet (Prinivil)Indicati ons:Hypertensive kidney disease with stage 3b chronic kidney disease (HCC) Take 1 Tablet by mouth in the morning. 90 Tablet 3 3 Active Isosorbide Mononitrate ER 30 MG Oral Tablet Extended Release 24 Hour (Imdur)Indications :NSTEMI (non-ST elevated myocardial infarction) (HCC) Take 1 tablet by mouth once daily 90 Tablet 3 3 Active Mirtazapine 15 MG Oral Tablet (Remeron) TAKE 1 TABLET BY MOUTH AT BEDTIME 90 Tablet 1 3 Active Metoprolol Tartrate 25 MG Oral Tablet (Lopressor)Indicat ions:NSTEMI (non-ST elevated myocardial infarction) (HCC) Take 1 Tablet by mouth in the morning and 1 Tablet before bedtime. 180 Tablet 3 4 Active Sertraline HCl 100 MG Oral Tablet (Zoloft)Indication s:Anxiety Take 1 tablet by mouth once daily 90 Tablet 3 4 Active amLODIPine Besylate 10 MG Oral Tablet (Norvasc)Indicatio ns:HTN, goal below 140/90 Take 1 Tablet by mouth in the morning. 90 Tablet 3 4 Active busPIRone HCl 10 MG Oral Tablet (Buspar) Take 1/2 (one-half) tablet by mouth twice daily 90 Tablet 5 4 Active Trelegy Ellipta 200-62.5-25 MCG/ACT Aerosol Powder Breath Activated (Fluticasone-Umecl idinium-Vilanterol )Indications:COPD, group B, by GOLD 2017 classification ([facility]) INHALE 1 PUFF ONCE DAILY 60 Each 5 4 Active Omeprazole 20 MG Oral Capsule Delayed Release (PriLOSEC)Indicati ons:Acute gastric ulcer, unspecified whether gastric ulcer hemorrhage or perforation present Take 2 capsules by mouth once daily 1 hour prior to breakfast 60 Capsule 5 4 Active Icosapent Ethyl 1 GM Oral Capsule (Vascepa) TAKE 2 CAPSULES BY MOUTH TWICE DAILY WITH MORNING AND EVENING MEALS. SWALLOW CAPSULES WHOLE. DO NOT OPEN OR BREAK 4 Active Albuterol Sulfate HFA 108 (90 Base) MCG/ACT Inhalation Aerosol SolutionIndication s:COPD, group B, by GOLD 2017 classification ([facility]) Inhale 2 Puffs by mouth every 6 hours as needed for Cough, Shortness of Breath or Wheezing. 18 g 3 4 Active Atorvastatin Calcium 40 MG Oral Tablet (Lipitor)Indicatio ns:Dyslipidemia, goal LDL below 160 Take 1 Tablet by mouth in the morning. 90 Tablet 3 4 Active Fenofibrate 145 MG Oral Tablet (Tricor)Indication s:Hypertriglycerid emia Take 1 Tablet by mouth in the morning. 90 Tablet 2 4 Active Calcium-Vitamin D-Minerals 600-800 MG-UNIT Oral Tablet Chewable Take 1 Tablet by mouth in the morning. Active Gabapentin 100 MG Oral Capsule (Neurontin)Indicat ions:Right lumbar radiculopathy Take 1 cap at bedtime time 1 week then take 1 cap twice daily times 1 week then increase to 1 cap three times daily 90 Capsule 2 4 Active Montelukast Sodium 10 MG Oral Tablet (Singulair)Indicat ions:Seasonal allergic rhinitis due to pollen Take 1 Tablet by mouth in the morning. 90 Tablet 3 4 Active Famotidine 20 MG Oral Tablet (Pepcid)Indication s:Gastroesophageal reflux disease without esophagitis Take 1 Tablet by mouth every evening. 4 Active Famotidine 20 MG Oral Tablet (Pepcid)Indication s:Gastroesophageal reflux disease without esophagitis Take 1 Tablet by mouth every other day. 45 Tablet 3 3 04/10/20 24 Discontinued Prevagen Extra Strength 20 MG Oral Capsule (Apoaequorin) Take 1 Capsule by mouth daily. 04/10/20 24 Discontinued[facility] Hospital, Clinic, or Other Facility Administered Medication Ordered Dose Route Frequency Start Date End Date Status Albuterol Sulfate (Proventil) (2.5 MG/3ML) 0.083% inhalation solution 2.5 mgIndications:COPD, group B, by GOLD 2017 classification ([facility]) 2.5 mg NEBULIZER PRN 06/30/2023 06/29/2024 Acti ve Albuterol Sulfate (Proventil) (5 MG/ML) 0.5% *conc* inhalation solution 2.5 mgIndications:COPD, group B, by GOLD 2017 classification ([facility]) 2.5 mg NEBULIZER PRN 06/30/2023 06/29/2024 Acti ve Albuterol Sulfate (Proventil) (2.5 MG/3ML) 0.083% inhalation solution 2.5 mgIndications:COPD (chronic obstructive pulmonary disease) with chronic bronchitis (HCC) 2.5 mg NEBULIZER Q4H PRN 08/06/2023 Active documented as of this encounter (statuses as of 04/12/2024) Active Problems Problem Noted Date Diagnosed Date Seasonal allergic rhinitis due to pollen 024 Prediabetes 12/22/2023 Chronic hypoxemic respiratory failure 12/21/2023 Mild cognitive impairment 12/21/2023 Renal artery stenosis 07/17/2023 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, bilateral 07/17/2023 Dysphagia 07/17/2023 Coronary artery disease invo lving curyung coronary artery of curyung heart without angina pectoris 05/29/2023 Age-related osteoporosis [...] 05/15/2017 HTN, goal below 140/90 01/15/2017 Old NC (myocardial infarction) 01/15/2017 Restless legs syndrome 04/06/2016 COPD, group B, by GOLD 2017 classification 08/28 Overview: Unable to classify severity based on 08/20/2014 PFT Gastroesophageal reflux disease without esophagi tis 07/21/2014 Dyslipidemia, goal LDL below 70 07/21/2014 Hiatal hernia documented as of this encounter (statuses as of 04/12/2024) Resolved Problems Problem Noted Date Diagnosed Date [...] as of this encounter (statuses as of 04/12/2024) Immunizations Name Administration Dates Next Due COVID-19 [...] Day Cigarettes 1 50 Smokeless Tobacco: Never Tobacco Cessation:Ready to Q uit: No; Counseling Given: Yes Comments:12/05/2023 1 pack daily, declined pamphlet Alcohol Use Standard Drinks/Week Comments [...] on file documented as of this encounter Last Filed Vital Signs Vital Sign Reading Time Taken Comments Blood Pressure 108/58 04/10/2024 3:09 PM EDT Pulse 74 04/10/2024 3:09 PM EDT Temperature 37.3 C (99.1 F) 04/10/2024 3:09 PM ED T Respiratory Rate - - Oxygen Saturation 96% 04/10/2024 3:09 PM EDT Inhaled Oxygen Concentration - - Weight 37.2 kg (82 lb 1.6 oz) 04/10/2024 3:09 PM EDT Height - - Body Mass Index 15.02 07/17/2023 12:02 PM EDT documented in this encounter Patient Instructions * Patient Instructions* Cierra Lagos LPN - 04/10/2024 3:07 PM EDT Patient Instructions - Fall Prevention (This education is for all patients over 65 regardless of symptoms) Remember to take your current medications as prescribed. In order to prevent falls, you are encouraged to: Exercise Utilize assistive/adaptive devices Avoid multifocal lenses when walking Avoid hazards in home Maintain a regular toileting schedule Any questions please contact our office. Preventing Falls in the Home (This education is for all patients over 65 regardless of symptoms) As you get older, falls are more likely. Thats because your reaction time slows. Your muscles and joints may also get stiffer, making them less flexible. Illness, medications, and vision changes can also affect your balance. A fall could leave you unable to live on your own. To make your home safer, follow these tips: Floors Put nonskid pads under area rugs Remove throw rugs Replace worn floor coverings Tack carpets firmly to each step on carpeted stairs. Put nonskid strips on the edges of uncarpeted stairs Keep floors and stairs free of clutter and cords Arrange furniture so there are clear pathways Clean up any spills right away Bathrooms Install grab bars in the tub or shower Apply nonskid strips or put a nonskid rubber mat in the tub or shower Sit on a bath chair to bathe Use bathmats with nonskid backing Lighting Keep a flashlight in each room Put a nightlight along the pathway between the bedroom and the bathroom [employer] Patient Education Copyright 2008 - 2010 Henry except where otherwise noted Preventing Falls: Exercises to Improve Balance, Flexibility, Strength, and Staying Power (This education is for all patients over 65 regardless of symptoms) Certain types of exercises may help make you less likely to fall. Try the ones below. Or do other exercises that your healthcare provider suggests. Depending on your health, you may need to start slowly. Dont let that stop you. Even small amounts of exercise can help you. Be sure to talk to yourhealthcare provider before starting any exercise program. Improve Balance Many types of exercise can help improve balance. Anthony chi and yoga are good examples. Heres another one to try. You can do it anytime and almost anywhere. Stand next to a counter or solid support. Push yourself up onto your tiptoes. Hold for 5 seconds. If you start to lose your balance, hold on to the counter. Rest and repeat 5 times. Work up to holding for 20 to 30 seconds, if you can. Increase Flexibility Being more flexible makes it easier for you to move around safely. Try exercises like the seated hamstring stretch. Sit in a chair and put one foot on a stool. Straighten your leg and reach with both hands down either side of your leg. Reach as far down your leg as you can. Hold for about 20 seconds. Go back to the starting position. Then repeat 5 times. Switch legs. Build Strength Resistance exercises help build strength. You can do them without equipment. Or you can use weights, elastic bands, or special machines. One such exercise is called the biceps curl. You can hold a 1 pound weight or even a can of soup. Do this exercise at least 3 times a week. Strive for everyday. Sit up straight in a chair. Keep your elbow close to your body and your wrist straight. Bend your arm, moving your hand up to your shoulder. Then slowly lower your arm. Repeat 5 times. Switch to the other arm. Build Your Staying Power Aerobic exercises make your heart and lungs stronger so you can keep moving longer. Walking and swimming are two of the best types of exercises you can do. Using a stationary bike is great, too. Find an aerobic exercise that you enjoy. Start slowly and build up. Even 5 minutes is helpful. Aimfor a goal of 30 minutes, at least 3 times a week. You dont have to do 30 minutes in one session. Break it up and walk a little throughout the day. More Helpful Tips Start easy. Slowly work up to doing more. Talk with your healthcare provider about the best exercises for you. Call senior centers or health clubs about exercise programs. If needed, have a family member watch you walk every so often to check your stability. Exercise with a friend. Choose an activity you both enjoy. Try exercises that you can do anytime, anywhere. Here are two examples. Have someone with you when you first try these: Practice walking by placing one foot right in front of the other. Stand up and sit down 10 times. Repeat this throughout the day. [employer] Patient Education Copyright 2009 - 2010 Henry except where otherwise noted. Preventing Falls: Moving Safely Using a Cane or Walker (This education is for all patients over 65 regardless of symptoms) Keep the cane away from your feet so you dont trip. A walking aid, such as a cane or walker, can help you stay more independent and avoid falls. Remember to keep your walking aid within easy reach when youre in a chair or in bed. And learn how to use it safely so you dont injure yourself. Using a Cane If you have a stronger side, hold the cane on that side. Get your balance. Move the cane and your weaker leg forward. Support your weight on both the cane and your weaker side. Step with your stronger leg. Start again from step 1. If youre using a folding walker, be sure you know how to lock it open. Check that its locked open before each use. Using a Walker Roll the walker (or lift it, if youre using one without wheels) forward about 12 inches. Step forward with your weaker leg first. Use the walker to help keep your balance. Bring your other foot forward to the center of the walker. Start again from step 1. Helpful Tips Check with your healthcare provider about the right walking aid to use. Ask about a walker with a seat attached. Check the tips of your cane or walker to make sure they have nonskid covers. Move slowly from room to room. Dont jimenez. Sit down to get dressed. Use a matt pack or backpack to keep your hands free. Get help for jobs that mean climbing, even on a stepstool. [employer] Patient Education Copyright 2008 - 2010 Henry except where otherwise noted. Urinary Incontinence Plan of Care Documentation: (This education is for all patients over 65 regardless of symptoms) Current medications reconciled. Patient encouraged to: Practice kegal exercises Provide education materials Use the restroom every 2 hours throughout the day Limit caffeine, alcohol, spicy foods and acidic foods Keep a bladder diary Limit fluid intake 3-4 hours before bed Lose weight Prevent constipation Take fluid pills at a time when you can get to the bathroom quickly Control sugar better if diabetic Limit fluid intake to 60 oz. per day Wear support stockings (TEDs)if you have edema Cierra Lagos LPN 04/10/2024 Kegel Exercises Kegel exercises dont require special clothing or equipment. Theyre easy to learn and simple to do. And if you do them right, no one can tell youre doing them, so they can be done almost anywhere. Your doctor, nurse, or physical therapist can answer any questions you have and help you get started. A Weak Pelvic Floor The pelvic floor muscles may weaken due to aging, and vaginal childbirth, injury, surgery, chronic cough, or lack of exercise. If the pelvic floor is weak, your bladder and other pelvic organs may sag out of place. The urethra may also open too easily and allow urine to leak out. Kegel exercises can help you strengthen your pelvic floor muscles so they can better support the pelvic organs and control urine flow. How Kegel Exercises Are Done Try each of the Kegel exercises described below. When youre doing them, try not to move your leg, buttock, or stomach muscles. While youre urinating, try to stop the flow of urine. Start and stop it as often as you can. Contract as if you were stopping your urine stream, but do it when youre not urinating. Tighten your rectum as if trying not to pass gas. Contract your anus, but dont move your buttocks. Helpful Hints Do your Kegels as often as you can. The more you do them, the faster youll feel the results. Pick an activity you do often as a reminder. For instance, do your Kegels every time you sit down. Tighten your pelvic floor before you sneeze, get up from a chair, cough, laugh, or lift. This protects your pelvic floor from injury and can help prevent urine leakage. Try to hold each Kegel for a slow count to five. You probably wont be able to hold them for thatlong at first, but keep practicing. It will get easier as your pelvic floor gets stronger. Eventually, special weights that you place in your vagina may be recommended to help make your Kegels even more effective. [employer] Patient Education Copyright 2008 - 2010 Henry except where otherwise noted. Here are some helpful tips for your urinary incontinence: (This education is for all patients over 65 regardless of symptoms) Practice Kegel exercises Use the restroom every 2 hours throughout the day Limit caffeine, alcohol, spicy foods, and acidic foods Keep a bladder diary Limit fluid intake 3-4 hours before bed Lose weight Prevent constipation Take fluid pills at a time when can get to the bathroom quickly Control sugar better if diabetic Limit fluid intake to 60 oz. per day Any questions, please feel free to contact our office. documented in this encounter Progress Notes * Phi Kyle, - 04/10/2024 4:17 PM EDT Images from the original note were not included. History of Present Illness Laura Pagan is a 79 year old female that presents for Follow Up (Lower back pain, leg pain, noappetite, trelegy barnard) Patient is a 79-year-old female here for medical follow-up. Patient is here with daughter in attendance. Patient has a history of hypertension, coronary artery disease, emphysema, multiple lung nodules, chronic hypoxemic respiratory failure, pulmonary cachexia, tobacco use, allergic rhinitis, GERD,hiatal hernia, prediabetes, lumbar degenerative disc disease, osteoporosis, abdominal aortic aneurysm, generalized anxiety disorder with insomnia. Patient denies fever chills or sweats. Patient complains of seasonal allergies with chronic nasal congestion postnasal drip. Patient denies sore throat or earache. Patient complains of chronic shortness of breath, dyspnea on exertion and nonproductive cough . Patient denies chest pain palpitations or edema. Patient denies abdominal pain nausea vomiting diarrhea constipation. Patient denies urinary frequency dysuria urgency or hematuria. Patient complains of chronic low back pain and stiffness with pain radiating into right leg. Patient denies muscle weakness or numbness.. Patient denies headache or dizziness. Patient denies skin rash or lesions. Review systems otherwise negative Physical Exam Vitals: 04/10/24 1509 Temp: 37.3 C (99.1 F) Pulse: 74 SpO2: 96% BP: 108/58 BP Readings from Last 3 Encounters: 04/10/24 108/58 12/21/23 190/98 12/05/23 182/100 Wt Readings from Last 3 Encounters: 04/10/24 37.2 kg (82 lb 1.6 oz) 12/21/23 37.4 kg (82 lb 8 oz) 12/05/23 37.4 kg (82 lb 6.4 oz) BMI Readings from Last 3 Encounters: 04/10/24 15.02 kg/m 12/21/23 15.09 kg/m 12/05/23 15.07 kg/m BP 108/58 (BP Site: Right Arm, BP Position: Sitting) | Pulse 74 | Temp 37.3 C (99.1 F) | Wt 37.2 kg (82 lb 1.6 oz) | SpO2 96% | BMI 15.02 kg/m | BSA 1.28 m General: alert, cachectic, in no distress Head: Normocephalic, No masses, lesions, tenderness or abnormalities Eye Exam: PERRLA, extraocular movements intact, conjunctiva are pink and non- injected, sclera clear Ears: External ears normal, Canals clear, TM's Normal Nose: Nasal turbinates enlarged pale and boggy with clear rhinorrhea Oropharynx: no exudate, no erythema, lips, buccal mucosa, and tongue normal, and mucous membranes are moist Neck: supple, no adenopathy, no bruits, thyroid normal size, non-tender, without nodularity Lymph: no palpable lymphadenopathy Heart: regular rate & rhythm, no murmur, and no gallops Lungs: chest symmetric with normal AP diameter, no chest deformities noted, no chest wall tenderness, decreased breath sounds with end-expiratory wheeze bilateral, no rales or rhonchi Pulses: carotid=2/4 w/o bruits Abdomen: abdomen soft, non-tender, normal bowel sounds, and no masses or organomegaly Back: back symmetric, excess kyphosis, no costovertebral angle tenderness, lumbar paravertebral muscle spasm and tenderness decreased range of motion lumbar flexion L1-L5 Extremities: No edema cyanosis or clubbing, decreased straight leg raising right leg with pain Neuro Exam: alert & oriented x 3 with fluent speech, no focal motor/sensory deficits, shuffled gait, DTRs 0/4 bilateral Achilles Skin: skin color, texture, turgor are normal, no rashes or significant lesions I have reviewed the following results: Lipid Panel, Hemoglobin A1C, TSH, CBC, and BMP Assessment and Plan HTN, goal below 140/90 Blood pressure at goal. Continue present medication Amlodipine 10 mg 1 tab once daily Lisinopril 20 mg 1 tab once daily - COMPREHENSIVE METABOLIC PANEL; Future Coronary artery disease involving curyung coronary artery of curyung heart without angina pectoris Stable Continue present medication Metoprolol tartrate 25 mg 1 tab twice daily Isosorbide mononitrate ER 30 mg 1 tab once daily Atorvastatin 40 mg 1 tab once daily Fenofibrate 145 mg 1 tab once daily Aspirin 81 mg 1 tab once - CBC WITH WBC DIFFERENTIAL; Future - COMPREHENSIVE METABOLIC PANEL; Future Panlobular emphysema (HCC) Stable Continue present medication Trelegy Ellipta 200-60 2.5-25 mcg inhale 1 puff once daily Albuterol HFA 2 puffs Q 4-6 hours p.r.n. Albuterol 0.083% inhalation solution inhale 1 vial via nebulizer four times daily p.r.n. 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 Gastroesophageal reflux disease without esophagitis Stable Continue present medication Famotidine 20 mg 1 tab HS Omeprazole 20 mg 1 tab once daily - CBC WITH WBC DIFFERENTIAL; Future - COMPREHENSIVE METABOLIC PANEL; Future - LIPASE; Future Hiatal hernia - UPPER ENDOSCOPY GI REFERRAL OP Continue present medication Famotidine 20 mg 1 tab HS Omeprazole 20 mg 1 tab once daily Prediabetes Stable Diabetic diet - COMPREHENSIVE METABOLIC PANEL; Future Lumbar degenerative disc disease - XR L SPINE AP AND LATERAL Avoid strenuous activities, no heavy lifting Warm compresses four times daily affected area Tylenol OTC as directed p.r.n. Gabapentin 100 mg take 1 cap at bedtime x1 week then 1 cap twice daily x1 week then increase to 1 cap 3 times daily Right lumbar radiculopathy - XR L SPINE AP AND LATERAL - Gabapentin 100 MG Oral Capsule (Neurontin); Take 1 cap at bedtime time 1 week then take 1 cap twice daily times 1 week then increase to 1 cap three times daily Age-related osteoporosis without current pathological fracture Calcium and vitamin-D supplementation Abdominal aortic aneurysm (AAA) without rupture, unspecified part (HCC) Stable Follow with Vascular Surgery Repeat abdominal aortic and mesenteric duplex November 2024 Advise stop smoking DEVAN (generalized anxiety disorder) Stable Continue present medication BuSpar 10 mg 1/2 tab twice daily Mirtazapine 15 mg 1 tab once daily Risk and functional assessment Wrap-Up Follow Up: Return in about 3 months (around 07/11/2024) for Clinic Visit. | For: Clinic Visit Time: I spent a total of 40-54 minutes (exact time 40 mins) on the date of service in preparation, delivery, and documentation of the care provided to Laura Pagan excluding any time spent in the performance of separately billed services. * Cierra Lagos LPN - 04/10/2024 3:07 PM EDT Patient has been verbally educated on the need or importance of Dexa Scan and has declined topic(s). Urinary Incontinence Plan of Care Documentation: (This education is for all patients over 65 regardless of symptoms) Current medications reconciled. Patient encouraged to: Practice kegal exercises Provide education materials Use the restroom every 2 hours throughout the day Limit caffeine, alcohol, spicy foods and acidic foods Keep a bladder diary Limit fluid intake 3-4 hours before bed Lose weight Prevent constipation Take fluid pills at a time when you can get to the bathroom quickly Control sugar better if diabetic Limit fluid intake to 60 oz. per day Wear support stockings (TEDs)if you have edema Cierra Lagos LPN 04/10/2024 documented in this encounter Plan of Treatment Upcoming Encounters Date Type Department Care Team (Late st Contact Info) Description 05/29/2024 2:00 PM EDT Nurse Only Ancillary [address] [place] [address] [place] [address] [place] Nurse Annual Wellness Visit [address] [place] [phone] 07/11/2024 2:20 PM EDT Office Visit Family Practice [address] [place] [address] [place] [address] Phi Kyle, DO [address] [place] [phone] Scheduled Orders Name Type Priority Associated Diagnoses Orde r Schedule XR L SPINE AP AND LATERAL Medical Imaging Routine Lumbar degenerative disc disease Right lumbar radiculopathy Ordered: 04/10/2024 CBC WITH WBC DIFFERENTIAL Lab Routine Coronary artery disease involving curyung coronary artery of curyung heart without angina pectoris Gastroesophageal reflux disease without esophagitis Expected: 04/10/2024 (Approximate), Expires: 04/10/2025 COMPREHENSIVE METABOLIC PANEL Lab Routine HTN, goal below 140/90 Coronary artery disease involving curyung coronary artery of curyung heart without angina pectoris Gastroesophageal reflux disease without esophagitis Prediabetes Expected: 04/10/2024 (Approximate), Expires: 04/10/2025 LIPASE Lab Routine Gastroesophageal reflux disease without esophagitis Expected: 04/10/2024 (Approximate), Expires: 04/10/2025 Scheduled Referrals Name Type Priority Associated Diagnoses Orde r Schedule UPPER ENDOSCOPY GI REFERRAL OP Referral Within 10 days (routine) Hiatal hernia Ordered: 04/10/2024 Health Maintenance Due Date Last Done Comments *BISPHONATE OR OTHER ACCEPTABLE MEDICATION NEEDED FOR OSTEOPOROSIS (REFER TO SMARTSET #1146) 10/09/2022 COVID-19 Vaccine ( season) 2023 10/27/2022, 08/29/2021, 11/23/2020, Additional history exists DISCUSS TOBACCO CESSATION (REFER TO SMARTSET #3291) 09/22/2023 09/22/2022, 07/29/2021, 05/17/2021 CKD PHOS USE SMARTSET 06399 10/12/202309/18, 08/21/2020, 01/10/2019 DXA Scan 12/21/2023 12/20/2021, 12/20/2021 *CXR OR CT FOR COPD EVER 03/30/2024 GFR 05/13/2024 11/13/2023, 07/19, 06/28/2023, Additional history exists Influenza Vaccine (FLU shot) (#1) 2024 Albumin/Creatinine Ratio 07/17/2024 07/17/2023, 09/18 Depression Screening 07/17/2024 07/17/2023 DTaP,Tdap,and Td Vaccines (2 - Td or Tdap) 07/21/2024 07/21/2014 HbA1c 08/13/2024 08/13/2023 CKD HGB USE SMARTSET 77144 11/13/202411/13, 11/13/2023, 08/13/2023, Additional history exists O2 ASSESSMENT COMPLETED IN PAST YEAR FOR COPD 04/10/2025 04/10/2024 Alpha-1 Antitrypsin Completed 03/23/2017 VITAMIN D LEVEL ONCE IN A LIFETIME-USE SMARTSET# [id number] Completed 08/14/2018, 05/19/2016, 07/31/2014 Zoster Vaccines Completed [...] as of this encounter Visit Diagnoses Diagnosis HTN, goal below 140/90- Primary Unspecified essential hypertension Coronary artery disease involving curyung coronary artery of curyung heart without angina pectoris Panlobular emphysema (HCC) Other emphysema Multiple lung nodules Other nonspecific abnormal finding of lung field Chronic hypoxemic respiratory failure (HCC) Chronic respiratory failure 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) Chronic airway obstruction, not elsewhere classified Tobacco use disorder Seasonal allergic rhinitis due to pollen Gastroesophageal reflux disease without esophagitis Esophageal reflux Hiatal hernia Diaphragmatic hernia without mention of obstruction or gangrene Prediabetes Other abnormal glucose Lumbar degenerative disc disease Degeneration of lumbar or lumbosacral intervertebral disc Right lumbar radiculopathy Thoracic or lumbosacral neuritis or radiculitis, unspecified Age-related osteoporosis without current pathological fracture Senile osteoporosis Abdominal aortic aneurysm (AAA) without rupture, unspecified part (HCC) DEVAN (generalized anxiety disorder) Generalized anxiety disorder Risk and functional assessment Screening for unspecified condition documented in this encounter Care Teams Credit Advisor Relationship Specialty Start Date End Date Phi Kyle DO [address] [place] [address] PCP - General Family Medicine 08/16/23 documented as of this encounter"
--- OUTSIDE RECORDS SUMMARY | 2024-06-04 09:55 | External Medical Summary | Summary of Care ---
Author Name Unknown Organization [facility] Address [address] [place] [address] Phone [phone] Care Team Providers Care Distillery Laborer Name Role Phone AnabellaPhi armstrong Primary Care Provider + [phone] Reason for Visit * Reason Onset Date Comments Appointment 04/10/2024 Upper endoscopy Encounter Details Date Type Department Care Team (Late st Contact Info) Description 04/10/2024 Telephone Gastroenterology, [place] [address] [place] [address] Specified, [place] No Resource [address] [place] [address] Appointment (Upper endoscopy /) Allergies Active Allergy Reactions Criticality Noted Date Comments Ragweed 07/21/2014 documented as of this encounter (statuses as of 04/11/2024) Medications Medication Sig Dispensed Refills Start Date [...] once daily 90 Tablet 3 08/21/2023 Active Mirtazapine 15 MG Oral Tablet (Remeron) TAKE 1 TABLET BY MOUTH AT BEDTIME 90 Tablet 1 09/11/2023 Active Metoprolol Tartrate 25 MG Oral Tablet (Lopressor)Indication s:NSTEMI (non-ST elevated myocardial infarction) ([facility]) Take 1 Tablet by mouth in [...] ations:COPD, group B, by GOLD 2017 classification ([facility]) INHALE 1 PUFF ONCE DAILY 60 [...] OPD, group B, by GOLD 2017 classification ([facility]) Inhale 2 Puffs by mouth every [...] Tablet by mouth every evening. 04/10/2024 Active Hospital, Clinic, or Other Facility Administered Medication Ordered Dose Route Frequency Start Date End Date Status Albuterol Sulfate (Proventil) (2.5 MG/3ML) 0.083% inhalation solution 2.5 mgIndications:COPD, group B, by GOLD 2017 classification ([facility]) 2.5 mg NEBULIZER PRN 06/30/2023 06/29/2024 Acti ve Albuterol Sulfate (Proventil) (5 MG/ML) 0.5% *conc* inhalation solution 2.5 mgIndications:COPD, group B, by GOLD 2017 classification ([facility]) 2.5 mg NEBULIZER PRN 06/30/2023 06/29/2024 Acti ve Albuterol Sulfate (Proventil) (2.5 MG/3ML) 0.083% inhalation solution 2.5 mgIndications:COPD (chronic obstructive pulmonary disease) with chronic bronchitis (HCC) 2.5 mg NEBULIZER Q4H PRN 08/06/2023 Active documented as of this encounter (statuses as of 04/11/2024) Active Problems Problem Noted Date Diagnosed Date Seasonal allergic rhinitis due to pollen 024 Prediabetes 12/22/2023 Chronic hypoxemic respiratory failure 12/21/2023 Mild cognitive impairment 12/21/2023 Renal artery stenosis 07/17/2023 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, bilateral 07/17/2023 Dysphagia 07/17/2023 Coronary artery disease invo lving [place] coronary artery of [place] heart without angina pectoris 05/29/2023 Age-related osteoporosis [...] 05/15/2017 HTN, goal below 140/90 01/15/2017 Old MD (myocardial infarction) 01/15/2017 Restless legs syndrome 04/06/2016 COPD, group B, by GOLD 2017 classification 08/28 Overview: Unable to classify severity based on 08/20/2014 PFT Gastroesophageal reflux disease without esophagi tis 07/21/2014 Dyslipidemia, goal LDL below 70 07/21/2014 Hiatal hernia documented as of this encounter (statuses as of 04/11/2024) Resolved Problems Problem Noted Date Diagnosed Date [...] as of this encounter (statuses as of 04/11/2024) Immunizations Name Administration Dates Next Due COVID-19 [...] encounter Miscellaneous Notes * Telephone Encounter - Nicci Rodriguez OSA - 04/11/2024 11:07 AM EDT Lmm for pt. * Telephone Encounter - Shaina Parsons OSA - 04/10/2024 6:22 PM EDT Referral UPPER ENDOSCOPY GI REFERRAL OP [[id number]] (Order [id number]) Currently Active Insurance Payor Plan Subscriber Member ID [facility] [place] [facility] GOLD CLASSIC 1 PART D [facility] [id number] PCP Information Primary Care Provider Phi Kyle DO Order Information Date Department Ordering/Authorizing 04/10/[address] Phi Kyle DO Order Providers Authorizing Provider Encounter Provider Phi Kyle DO Dematteo, Dominic, DO Referral (Authorized) ID: [id number] Created on: 04/10/2024 Referred by Referred to [...] HAS BEEN ELECTRONICALLY SIGNED * Administrative Questions: [phone] or [id number] Reprint Requisition UPPER ENDOSCOPY GI REFERRAL OP (Order #[id number]) on 04/10/24 documented in this encounter Plan of Treatment Upcoming Encounters Date Type Department Care Team (Late st Contact Info) Description 05/29/2024 2:00 PM EDT Nurse Only Ancillary [address], [place] [address] [place] [address] [place], Nurse Annual Wellness Visit [address] [place] [address] 07/11/2024 2:20 PM EDT Office Visit Family Practice [address], [place] [address] [place] [address] Phi Kyle, DO [address] [place] [address] Health Maintenance Due Date Last Done Comments *BISPHONATE OR OTHER ACCEPTABLE MEDICATION NEEDED FOR OSTEOPOROSIS (REFER TO SMARTSET #1146) 10/09/2022 COVID-19 Vaccine ( season) 2023 10/27/2022, 08/29/2021, 11/23/2020, Additional history exists DISCUSS TOBACCO CESSATION (REFER TO SMARTSET #3291) 09/22/2023 09/22/2022, 07/29/2021, 05/17/2021 CKD PHOS USE SMARTSET 46642 10/12/202309/18, 08/21/2020, 01/10/2019 DXA Scan 12/21/2023 12/20/2021, 12/20/2021 *CXR OR CT FOR COPD EVER 03/30/2024 GFR 05/13/2024 11/13/2023, 07/19, 06/28/2023, Additional history exists Influenza Vaccine (FLU shot) (#1) 2024 Albumin/Creatinine Ratio 07/17/2024 07/17/2023, 09/18 Depression Screening 07/17/2024 07/17/2023 DTaP,Tdap,and Td Vaccines (2 - Td or Tdap) 07/21/2024 07/21/2014 HbA1c 08/13/2024 08/13/2023 CKD HGB USE SMARTSET 30958 11/13/202411/13, 11/13/2023, 08/13/2023, Additional history exists O2 ASSESSMENT COMPLETED IN PAST YEAR FOR COPD 04/10/2025 04/10/2024 Alpha-1 Antitrypsin Completed 03/23/2017 VITAMIN D LEVEL ONCE IN A LIFETIME-USE SMARTSET# [id number] Completed 08/14/2018, 05/19/2016, 07/31/2014 Zoster Vaccines Completed [...] filedocumented as of this encounter Care Teams Distillery Laborer Relationship Specialty Start Date End Date Phi Kyle DO [address] [place] [phone] PCP - General Family Medicine 08/16/23 documented as of this encounter
--- OUTSIDE RECORDS SUMMARY | 2024-06-04 09:55 | External Medical Summary | Summary of Care ---
Author Name Unknown Organization [facility] Address [address] [facility] [place] [address] Phone [phone] Care Team Providers Care Char Filter Operator Name Role Phone Arabella Kyle DO Primary Care Provider [phone] Reason for Visit * Reason Onset Date Comments Medication Refill 03/25/2024 Encounter Details Date Type Department Care Team (Late st Contact Info) Description 03/25/2024 Refill Family Practice [address], [place] [address] [place] [phone] Arabella Kyle DO [address] [place] [address] Hypertriglyceridemia Allergies Active Allergy Reactions Criticality Noted Date Comments Ragweed 07/21/2014 documented as of this encounter (statuses as of 03/26/2024) Medications Medication Sig Dispensed Refills Start Date End Date Status Aspirin EC 81 MG Oral Tablet Delayed Release Take 1 Tablet by mouth in the morning. Active Melatonin 10 MG Oral Capsule Take 1 Capsule by mouth at bedtime. Active Lisinopril 20 MG Oral Tablet (Prinivil)Indication s:Hypertensive kidney disease with stage 3b chronic kidney disease (HCC) Take 1 Tablet by mouth in the morning. 90 Tablet 3 05/29/2023 Active Famotidine 20 MG Oral Tablet (Pepcid)Indications: Gastroesophageal reflux disease without esophagitis Take 1 Tablet by mouth every other day. 45 Tablet 3 08/06/2023 Active Isosorbide Mononitrate ER 30 MG Oral Tablet Extended Release 24 Hour (Imdur)Indications:N STEMI (non-ST elevated myocardial infarction) ([facility]) Take 1 tablet by mouth once daily 90 Tablet 3 08/21/2023 Active Mirtazapine 15 MG Oral Tablet (Remeron) TAKE 1 TABLET BY MOUTH AT BEDTIME 90 Tablet 1 09/11/2023 Active Metoprolol Tartrate 25 MG Oral Tablet (Lopressor)Indicatio ns:NSTEMI (non-ST elevated myocardial infarction) ([facility]) Take 1 Tablet by mouth in the morning and 1 Tablet before bedtime. 180 Tablet 3 09/21/2023 Active Sertraline HCl 100 MG Oral Tablet (Zoloft)Indications: Anxiety Take 1 tablet by mouth once daily 90 Tablet 3 10/05/2023 Active amLODIPine Besylate 10 MG Oral Tablet (Norvasc)Indications :HTN, goal below 140/90 Take 1 Tablet by mouth in the morning. 90 Tablet 3 12/24/2023 Active busPIRone HCl 10 MG Oral Tablet (Buspar) Take 1/2 (one-half) tablet by mouth twice daily 90 Tablet 5 01/03/2024 Active Trelegy Ellipta 200-62.5-25 MCG/ACT Aerosol Powder Breath Activated (Fluticasone-Umeclid inium-Vilanterol)Ind ications:COPD, group B, by GOLD 2017 classification ([facility]) INHALE 1 PUFF ONCE DAILY 60 Each 5 01/02/2024 Active Omeprazole 20 MG Oral Capsule Delayed Release (PriLOSEC)Indication s:Acute gastric ulcer, unspecified whether gastric ulcer hemorrhage or perforation present Take 2 capsules by mouth once daily 1 hour prior to breakfast 60 Capsule 5 01/02/2024 Active Prevagen Extra Strength 20 MG Oral Capsule (Apoaequorin) Take 1 Capsule by mouth daily. Active Icosapent Ethyl 1 GM Oral Capsule (Vascepa) TAKE 2 CAPSULES BY MOUTH TWICE DAILY WITH MORNING AND EVENING MEALS. SWALLOW CAPSULES WHOLE. DO NOT OPEN OR BREAK 01/02/2024 Active Albuterol Sulfate HFA 108 (90 Base) MCG/ACT Inhalation Aerosol SolutionIndications: COPD, group B, by GOLD 2017 classification ([facility]) Inhale 2 Puffs by mouth every 6 hours as needed for Cough, Shortness of Breath or Wheezing. 18 g 3 03/11/2024 Active Atorvastatin Calcium 40 MG Oral Tablet (Lipitor)Indications :Dyslipidemia, goal LDL below 160 Take 1 Tablet by mouth in the morning. 90 Tablet 3 03/10/2024 Active Fenofibrate 145 MG Oral Tablet (Tricor)Indications: Hypertriglyceridemia Take 1 Tablet by mouth in the morning. 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, bilateral 07/17/2023 Dysphagia 07/17/2023 Coronary artery disease invo lving [place] coronary artery of [place] heart without angina pectoris 05/29/2023 Age-related osteoporosis [...] as of this encounter (statuses as of 03/26/2024) Resolved Problems Problem Noted Date Diagnosed Date Resolved Date Abdominal aortic aneurysm (A AA) without rupture [...] as of this encounter (statuses as of 03/26/2024) Immunizations Name Administration Dates Next Due COVID-19 [...] Tobacco: Never Comments:12/05/2023 1 pack irais velasquez, [place] pamphlet Alcohol Use Standard Drinks/Week Comments Not [...] encounter Miscellaneous Notes * Telephone Encounter - Renay Clark RPh - 03/26/2024 4:33 PM EDTSigned Prescriptions: Disp Refills Fenofibrate 145 MG Oral Tablet (Tricor) 90 Tab*2 Sig: Take 1 Tablet by mouth in the morning. Authorizing Provider: ARABELLA KYLE Ordering User: RENAY CLARK * Telephone Encounter - Carrie Cheung, stamps or coins salesperson - 03/25/2024 11:51 AM EDT Did you pend patient's preferred pharmacy and medication before forwarding?yes Pharmacy: [facility] [id number] [place] Pending Prescriptions: Disp Refills Fenofibrate 145 MG Oral Tablet (Tricor) 90 Tab*0 Sig: Take 1 Tablet by mouth in the morning. Last Visit: 12/21/2023 (in office), Visit date not found (telemedicine) Next Visit: 03/28/2024 If no future appointments scheduled, and last appointment is greater than a year ago, please schedule patient for a follow-up appointment Last date the medication was ordered: 11/27/2023 Is this request for a controlled substance?No Urine Drug Screen:No results found for this [...] AM HGBA1C 5.8 (H) 08/13/2023 03:33 PM documented in this encounter Plan of Treatment Upcoming Encounters Date Type Department Care Team (Late st Contact Info) Description 03/28/2024 2:20 PM EDT Office Visit Family Practice [address] [facility], [place] [address] [place] [address] Arabella Kyle DO [address] [place] [address] 05/29/2024 2:00 PM EDT Nurse Only Ancillary [address] [place] [address] [place] [phone] [place], Nurse Annual Wellness Visit [address] [place] [address] Health Maintenance Due Date Last Done Comments *BISPHONATE OR OTHER ACCEPTABLE MEDICATION NEEDED FOR OSTEOPOROSIS (REFER TO SMARTSET #1146) 10/09/2022 COVID-19 Vaccine ( season) 2023 10/27/2022, 08/29/2021, 11/23/2020, Additional history exists DISCUSS TOBACCO CESSATION (REFER TO SMARTSET #3291) 09/22/2023 09/22/2022, 07/29/2021, 05/17/2021 CKD PHOS USE SMARTSET 02814 10/12/202309/18, 08/21/2020, 01/10/2019 DXA Scan 12/21/2023 12/20/2021, 12/20/2021 GFR 05/13/2024 11/13/2023, 07/19, 06/28/2023, Additional history exists Influenza Vaccine (FLU shot) (#1) 2024 Albumin/Creatinine Ratio 07/17/2024 07/17/2023, 09/18 Depression Screening 07/17/2024 07/17/2023 DTaP,Tdap,and Td Vaccines (2 - Td or Tdap) 07/21/2024 07/21/2014 HbA1c 08/13/2024 08/13/2023 CKD HGB USE SMARTSET 45116 11/13/202411/13, 11/13/2023, 08/13/2023, Additional history exists O2 ASSESSMENT COMPLETED IN PAST YEAR FOR COPD 12/20/2024 12/21/2023 Alpha-1 Antitrypsin Completed 03/23/2017 VITAMIN D LEVEL ONCE IN A LIFETIME-USE SMARTSET# 22462 Completed 08/14/2018, 05/19/2016, 07/31/2014 Zoster Vaccines Completed [...] as of this encounter Visit Diagnoses Diagnosis Hypertriglyceridemia Pure hyperglyceridemia documented in this encounter Care Teams Char Filter Operator Relationship Specialty Start Date End Date Arabella Kyle DO [address] [place] [phone] PCP - General Family Medicine 11/30/23 documented as of this encounter
--- OUTSIDE RECORDS SUMMARY | 2024-06-04 09:55 | External Medical Summary | Summary of Care ---
Author Name Unknown Organization [facility] Address [address] [facility] [place] [address] Phone [phone] Care Team Providers Care Laundry Tub Maker Name Role Phone Anabella, Phi Primary Care Provider + [phone] Encounter Details Date Type Department Care Team (Late st Contact Info) Description 03/10/2024 Population Health External Data Unspecified Department Allergies Active Allergy Reactions Criticality Noted Date Comments Ragweed 07/21/2014 documented as of this encounter (statuses as of 03/11/2024) Medications Medication Sig Dispensed Refills Start Date [...] Hour (Imdur)Indications:N STEMI (non-ST elevated myocardial infarction) (HCC) Take 1 tablet by mouth once daily 90 Tablet 3 08/21/2023 Active Mirtazapine 15 MG Oral Tablet (Remeron) TAKE 1 TABLET BY MOUTH AT BEDTIME 90 Tablet 1 09/11/2023 Active Metoprolol Tartrate 25 MG Oral Tablet (Lopressor)Indicatio ns:NSTEMI (non-ST elevated myocardial infarction) (HCC) Take 1 Tablet by mouth in the morning and 1 Tablet before bedtime. 180 Tablet 3 09/21/2023 Active Sertraline HCl 100 MG Oral Tablet (Zoloft)Indications: Anxiety Take 1 tablet by mouth once daily 90 Tablet 3 10/05/2023 Active Fenofibrate 145 MG Oral Tablet (Tricor)Indications: Hypertriglyceridemia Take 1 tablet by mouth once daily 90 Tablet 11/27/2023 Active amLODIPine Besylate 10 MG Oral Tablet (Norvasc)Indications :HTN, goal below 140/90 Take 1 Tablet by mouth in the morning. 90 Tablet 3 12/24/2023 Active busPIRone HCl 10 MG Oral Tablet (Buspar) Take 1/2 (one-half) tablet by mouth twice daily 90 Tablet 5 01/03/2024 Active Trelegy Ellipta 200-62.5-25 MCG/ACT Aerosol Powder Breath Activated (Fluticasone-Umeclid inium-Vilanterol)Ind ications:COPD, group B, by GOLD 2017 classification ([facility]) INHALE 1 PUFF ONCE DAILY 60 Each [...] DO NOT OPEN OR BREAK 01/02/2024 Active Atorvastatin Calcium 40 MG Oral Tablet (Lipitor)Indications :Dyslipidemia, goal LDL below 160 Take 1 Tablet by mouth in the morning. 90 Tablet 3 03/10/2024 Active Albuterol Sulfate HFA 108 (90 Base) MCG/ACT Inhalation Aerosol SolutionIndications: COPD, group B, by GOLD 2017 classification ([facility]) Inhale 2 Puffs by mouth every 6 hours as needed for Cough, Shortness of Breath or Wheezing. 18 g 3 05/15/2023 4 Discontinue d(Refill) Hospital, Clinic, or Other Facility Administered Medication Ordered Dose Route Frequency Start Date End Date Status Albuterol Sulfate (Proventil) (2.5 MG/3ML) 0.083% inhalation solution 2.5 mgIndications:COPD, group B, by GOLD 2017 classification ([facility]) 2.5 mg NEBULIZER PRN 06/30/2023 06/29/2024 Acti ve Albuterol Sulfate (Proventil) (5 MG/ML) 0.5% *conc* inhalation solution 2.5 mgIndications:COPD, group B, by GOLD 2017 classification ([facility]) 2.5 mg NEBULIZER PRN 06/30/2023 06/29/2024 Acti ve Albuterol Sulfate (Proventil) (2.5 MG/3ML) 0.083% inhalation solution 2.5 mgIndications:COPD (chronic obstructive pulmonary disease) with chronic bronchitis ([facility]) 2.5 mg NEBULIZER Q4H PRN 08/06/2023 Active documented as of this encounter (statuses as of 03/11/2024) Active Problems Problem Noted Date Diagnosed Date Prediabetes 12/22/2023 Chronic hypoxemic respiratory failure 12/21/2023 Chronic hypoxemic respiratory failure 12/21/2023 Mild cognitive impairment 12/21/2023 Renal artery stenosis 07/17/2023 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, bilateral 07/17/2023 Dysphagia 07/17/2023 Coronary artery disease invo lving [place] coronary artery of [place] heart without angina pectoris 05/29/2023 Age-related osteoporosis [...] 05/15/2017 HTN, goal below 140/90 01/15/2017 Old [place] (myocardial infarction) 01/15/2017 Restless legs syndrome 04/06/2016 COPD, group B, by GOLD 2017 classification 08/28 Overview: Unable to classify severity based on 08/20/2014 PFT Gastroesophageal reflux disease without esophagi tis 07/21/2014 Dyslipidemia, goal LDL below 70 07/21/2014 Hiatal hernia documented as of this encounter (statuses as of 03/11/2024) Resolved Problems Problem Noted Date Diagnosed Date [...] as of this encounter (statuses as of 03/11/2024) Immunizations Name Administration Dates Next Due COVID-19 [...] on file documented as of this encounter Plan of Treatment Upcoming Encounters Date Type Department Care Team (Late st Contact Info) Description 03/28/2024 2:20 PM EDT Office Visit Family Practice [address] [place] [address] Phi Kyle DO [address] [place] [phone] 05/29/2024 2:00 PM EDT Nurse Only Ancillary [address] [place] [address] [place] [address] [place], Nurse Annual Wellness Visit [address] [place] [address] Health Maintenance Due Date Last Done Comments *BISPHONATE OR OTHER ACCEPTABLE MEDICATION NEEDED FOR OSTEOPOROSIS (REFER TO SMARTSET #1146) 10/09/2022 COVID-19 Vaccine ( season) 2023 10/27/2022, 08/29/2021, 11/23/2020, Additional history exists DISCUSS TOBACCO CESSATION (REFER TO SMARTSET #3291) 09/22/2023 09/22/2022, 07/29/2021, 05/17/2021 CKD PHOS USE SMARTSET 03635 10/12/202309/18, 08/21/2020, 01/10/2019 DXA Scan 12/21/2023 12/20/2021, 12/20/2021 GFR 05/13/2024 11/13/2023, 07/19, 06/28/2023, Additional history exists Influenza Vaccine (FLU shot) (Season Ended) 2024 Albumin/Creatinine Ratio 07/17/2024 07/17/2023, 09/18 Depression Screening 07/17/2024 07/17/2023 DTaP,Tdap,and Td Vaccines (2 - Td or Tdap) 07/21/2024 07/21/2014 HbA1c 08/13/2024 08/13/2023 CKD HGB USE SMARTSET 71259 11/13/202411/13, 11/13/2023, 08/13/2023, Additional history exists O2 ASSESSMENT COMPLETED IN PAST YEAR FOR COPD 12/20/2024 12/21/2023 Alpha-1 Antitrypsin Completed 03/23/2017 VITAMIN D LEVEL ONCE IN A LIFETIME-USE SMARTSET# [id number] Completed 08/14/2018, 05/19/2016, 07/31/2014 Zoster Vaccines Completed 06/17/2020, 11/2019, 04/17/2020, Additional history exists Cologuard Discontinued 10/20/2021, 09/18, 10/13/2021, Additional history exists Colorectal Cancer Screening Discontinued Pneumococcal Vaccine: 65+ Years Completed 10/27/2022, 06/17/2015, 08/31/2014 Lung Cancer Screening Completed 09/06/2023 , 08/15/2022, 07/18/2021, Additional history exists Colonoscopy Discontinued Fecal Occult Blood Test Discontinued GARDASIL-HPV IMMUNIZATION SERIES Aged Out No longer eligible based on patient's age to complete this topic Hepatitis B Aged Out No longer eligi ble based on patient's age to complete this topic MENINGOCOCCAL (MENACTRA/MENVEO) Aged Out No longer eligible based on patient's age to complete this topic Sigmoidoscopy Discontinued documented as of this encounter Medical Devices Not on filedocumented as of this encounter Care Teams Laundry Tub Maker Relationship Specialty Start Date End Date Phi Kyle DO [address] [place] [id number] PCP - General Family Medicine 08/16/23 documented as of this encounter
--- OUTSIDE RECORDS SUMMARY | 2024-06-04 09:55 | External Medical Summary | Summary of Care ---
Author Name Unknown Organization [facility] Address [address] [place] [address] Phone [phone] Care Team Providers Care Manager Interface Name Role Phone AnabellaDavyPhi Primary Care Provider + [phone] Reason for Visit * Reason Onset Date Comments Medication Refill 03/09/2024 Albuterol Sulf ate HFA 108 (90 Base) MCG/ACT Inhalation Aerosol Solution Encounter Details Date Type Department Care Team (Late st Contact Info) Description 03/09/2024 Refill Pulmonary Medicine, [facility] [address] [facility] [place] [address] Jose Medina CRNP [address] [place] [address] COPD, group B, by GOLD 2017 classification ([facility])* Allergies Active Allergy Reactions Criticality Noted Date [...] Hour (Imdur)Indications:N STEMI (non-ST elevated myocardial infarction) ([facility]) Take 1 tablet by mouth once daily 90 Tablet 3 08/21/2023 Active Mirtazapine 15 MG Oral Tablet (Remeron) TAKE 1 TABLET BY MOUTH AT BEDTIME 90 Tablet 1 09/11/2023 Active Metoprolol Tartrate 25 MG Oral Tablet (Lopressor)Indicatio ns:NSTEMI (non-ST elevated myocardial infarction) ([facility]) Take 1 Tablet by mouth in [...] ications:COPD, group B, by GOLD 2017 classification ([facility]) INHALE 1 PUFF ONCE DAILY 60 [...] COPD, group B, by GOLD 2017 classification ([facility]) Inhale 2 Puffs by mouth every 6 hours as needed for Cough, Shortness of Breath or Wheezing. 18 g 3 03/11/2024 Active Albuterol Sulfate HFA 108 (90 Base) MCG/ACT Inhalation Aerosol SolutionIndications: COPD, group B, by GOLD 2017 classification ([facility]) Inhale 2 Puffs by mouth every 6 hours as needed for Cough, Shortness of Breath or Wheezing. 18 g 3 05/15/2023 4 Discontinue d(Refill) Atorvastatin Calcium 40 MG Oral Tablet (Lipitor)Indications :Dyslipidemia, goal LDL below 160 Take 1 tablet by mouth once daily 90 Tablet 1 06/26/2023 4 Discontinue d(Refill) Hospital, Clinic, or Other Facility Administered Medication Ordered Dose Route Frequency Start Date End Date Status Albuterol Sulfate (Proventil) (2.5 MG/3ML) 0.083% inhalation solution 2.5 mgIndications:COPD, group B, by GOLD 2017 classification ([facility]) 2.5 mg NEBULIZER PRN 06/30/2023 06/29/2024 Acti ve Albuterol Sulfate (Proventil) (5 MG/ML) 0.5% *conc* inhalation solution 2.5 mgIndications:COPD, group B, by GOLD 2017 classification ([facility]) 2.5 mg NEBULIZER PRN 06/30/2023 06/29/2024 [...] Dysphagia 07/17/2023 Coronary artery disease invo lving [place] coronary artery of [place] heart without angina pectoris 05/29/2023 Age-related osteoporosis [...] 05/15/2017 HTN, goal below 140/90 01/15/2017 [place] (myocardial infarction) 01/15/2017 Restless legs syndrome 04/06/2016 [...] encounter Miscellaneous Notes * Telephone Encounter - Jose Medina CRNP - 03/11/2024 8:37 AM EDT Signed Prescriptions: Disp Refills Albuterol Sulfate HFA 108 (90 Base) MCG/AC*18 g 3 Sig: Inhale 2 Puffs by mouth every 6 hours as needed for Cough, Shortness of Breath or Wheezing. Authorizing Provider: JOSE MEDINA * Telephone Encounter - Jose Medina CRNP - 03/11/2024 8:37 AM EDT Pending Prescriptions: Disp Refills Albuterol Sulfate HFA 108 (90 Base) MCG/AC*18 g 3 Sig: Inhale 2 Puffs by mouth every 6 hours as needed for Cough, Shortness of Breath or Wheezing. * Telephone Encounter - Ann Jenkins, hydrographic surveyor - 03/10/2024 11:40 AM EDT Did you pend patient's preferred pharmacy and medication before forwarding?yes Pharmacy: [id number] [id number] [address] [place] Pending Prescriptions: Disp Refills Albuterol Sulfate HFA 108 (90 Base) MCG/A*18 g 3 Sig: Inhale 2 Puffs by mouth every 6 hours as needed for Cough, Shortness of Breath or Wheezing. Last Visit: 09/22/2022 (in office), Visit date not found (telemedicine) Next Visit: Visit date not found If no future appointments scheduled, and last appointment is greater than a year ago, please schedule patient for a follow-up appointment Last date the medication was ordered: Is this request for a controlled substance?No [...] AM HGBA1C 5.8 (H) 08/13/2023 03:33 PM * Telephone Encounter - Melonie Grewal LPN - 03/10/2024 6:58 AM EDTPending Prescriptions: Disp Refills Albuterol Sulfate HFA 108 (90 Base) MCG/AC*18 g 3 Sig: Inhale 2Puffs by mouth every 6 hours as needed for Cough, Shortness of Breath or Wheezing. documented in this encounter Plan of Treatment Upcoming Encounters Date Type Department Care Team (Late st Contact Info) Description 03/28/2024 2:20 PM EDT Office Visit Family Practice [address] [facility] [address] [place] [address] Phi Kyle DO [address] [place] [address] 05/29/2024 2:00 PM EDT Nurse Only Ancillary [address] [facility] [address] [place] [address] [place], Nurse Annual Wellness Visit [address] [place] [address] Health Maintenance Due Date Last Done Comments *BISPHONATE OR OTHER ACCEPTABLE MEDICATION NEEDED FOR OSTEOPOROSIS (REFER TO SMARTSET #1146) 10/09/2022 COVID-19 Vaccine ( season) 2023 10/27/2022, 08/29/2021, 11/23/2020, Additional history exists DISCUSS TOBACCO CESSATION (REFER TO SMARTSET #3291) 09/22/2023 09/22/2022, 07/29/2021, 05/17/2021 CKD PHOS USE SMARTSET 21247 10/12/202309/18, 08/21/2020, 01/10/2019 DXA Scan 12/21/2023 12/20/2021, 12/20/2021 GFR 05/13/2024 11/13/2023, 07/19, 06/28/2023, Additional history exists Influenza Vaccine (FLU shot) (Season Ended) 2024 Albumin/Creatinine Ratio 07/17/2024 07/17/2023, 09/18 Depression Screening 07/17/2024 07/17/2023 DTaP,Tdap,and Td Vaccines (2 - Td or Tdap) 07/21/2024 07/21/2014 HbA1c 08/13/2024 08/13/2023 CKD HGB USE SMARTSET 73876 11/13/202411/13, 11/13/2023, 08/13/2023, Additional history exists O2 ASSESSMENT COMPLETED IN PAST YEAR FOR COPD 12/20/2024 12/21/2023 Alpha-1 Antitrypsin Completed 03/23/2017 VITAMIN D LEVEL ONCE IN A LIFETIME-USE SMARTSET# [id number] Completed 08/14/2018, 05/19/2016, 07/31/2014 Zoster Vaccines Completed [...] as of this encounter Visit Diagnoses Diagnosis COPD, group B, by GOLD 2017 classification (HCC)- Primary documented in this encounter Care Teams Manager Interface Relationship Specialty Start Date End Date Phi Kyle DO [address] [place] [phone] PCP - General Family Medicine 08/16/23 documented as of this encounter
--- OUTSIDE RECORDS SUMMARY | 2024-06-04 09:55 | External Medical Summary | Summary of Care ---
Author Name Unknown Organization [facility] Address [address] [facility] [place] [address] Phone [phone] Care Team Providers Care Residential Living Assistant Name Role Phone AnabellaPhi Primary Care Provider + [phone] Encounter Details Date Type Department Care Team (Late st Contact Info) Description 04/08/2024 Population Health External Data Unspecified Department Allergies [...] Hour (Imdur)Indications:NS VASILIY (non-ST elevated myocardial infarction) ([facility]) Take 1 tablet by mouth once [...] ations:COPD, group B, by GOLD 2017 classification ([facility]) INHALE 1 PUFF ONCE DAILY 60 [...] OPD, group B, by GOLD 2017 classification ([facility]) Inhale 2 Puffs by mouth every [...] the morning. 90 Tablet 2 03/26/2024 Active Hospital, Clinic, or Other Facility Administered Medication Ordered Dose Route Frequency Start Date End Date Status Albuterol Sulfate (Proventil) (2.5 MG/3ML) 0.083% inhalation solution 2.5 mgIndications:COPD, group B, by GOLD 2017 classification ([facility]) 2.5 mg NEBULIZER PRN 06/30/2023 06/29/2024 Acti ve Albuterol Sulfate (Proventil) (5 MG/ML) 0.5% *conc* inhalation solution 2.5 mgIndications:COPD, group B, by GOLD 2017 classification ([facility]) 2.5 mg NEBULIZER PRN 06/30/2023 06/29/2024 Acti ve Albuterol Sulfate (Proventil) (2.5 MG/3ML) 0.083% inhalation solution 2.5 mgIndications:COPD (chronic obstructive pulmonary disease) with chronic bronchitis ([facility]) 2.5 mg NEBULIZER Q4H PRN 08/06/2023 Active documented as of this encounter (statuses as of 04/11/2024) Active Problems Problem Noted Date Diagnosed Date Seasonal allergic rhinitis due to pollen 024 Prediabetes 12/22/2023 Chronic hypoxemic respiratory failure 12/21/2023 Mild cognitive impairment 12/21/2023 Renal artery stenosis 07/17/2023 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, bilateral 07/17/2023 Dysphagia 07/17/2023 Coronary artery disease invo lving [place] coronary artery of [place] heart without angina pectoris 05/29/2023 Age-related osteoporosis wit hout current pathological fracture 10/06/2022 Lumbar degenerative disc disease 04/27/2022 Right lumbar radiculopathy 04/27/2022 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 (Household - for ages [...] PM EDT Nurse Only Ancillary [address] [place] [address] [place] [address] [place] Nurse Annual Wellness Visit [address] [place] [address] 07/11/2024 2:20 PM EDT Office Visit Family Practice [address] [place] [address] [place] [address] Phi Kyle DO [address] [place] [address] Health Maintenance Due Date Last Done Comments *BISPHONATE OR OTHER ACCEPTABLE MEDICATION NEEDED FOR OSTEOPOROSIS (REFER TO SMARTSET #1146) 10/09/2022 COVID-19 Vaccine ( season) 2023 10/27/2022, 08/29/2021, 11/23/2020, Additional history exists DISCUSS TOBACCO CESSATION (REFER TO SMARTSET #3291) 09/22/2023 09/22/2022, 07/29/2021, 05/17/2021 CKD PHOS USE SMARTSET 53340 10/12/202309/18, 08/21/2020, 01/10/2019 DXA Scan 12/21/2023 12/20/2021, 12/20/2021 *CXR OR CT FOR COPD EVER 03/30/2024 GFR 05/13/2024 11/13/2023, 07/19, 06/28/2023, Additional history exists Influenza Vaccine (FLU shot) (#1) 2024 Albumin/Creatinine Ratio 07/17/2024 07/17/2023, 09/18 Depression Screening 07/17/2024 07/17/2023 DTaP,Tdap,and Td Vaccines (2 - Td or Tdap) 07/21/2024 07/21/2014 HbA1c 08/13/2024 08/13/2023 CKD HGB USE SMARTSET 66131 11/13/202411/13, 11/13/2023, 08/13/2023, Additional history exists O2 ASSESSMENT COMPLETED IN PAST YEAR FOR COPD 04/10/2025 04/10/2024 Alpha-1 Antitrypsin Completed 03/23/2017 VITAMIN D LEVEL ONCE IN A LIFETIME-USE SMARTSET# [id number] Completed 08/14/2018, 05/19/2016, 07/31/2014 Zoster Vaccines Completed [...] filedocumented as of this encounter Care Teams Residential Living Assistant Relationship Specialty Start Date End Date Phi Kyle DO [address] [place] [phone] PCP - General Family Medicine 08/16/23 documented as of this encounter
--- OUTSIDE RECORDS SUMMARY | 2024-06-04 09:55 | External Medical Summary | Summary of Care ---
Author Name Unknown Organization [facility] Address [address] [facility] [place] [address] Phone [phone] Care Team Providers Care Systems Planner Name Role Phone Phi Kyle DO Primary Care Provider [phone] Reason for Visit * Reason Comments Dosage Adjustment In Person (Anticoag Cl inic) Medication Management Encounter Details Date Type Department Care Team (Late st Contact Info) Description 04/10/2024 2:50 PM EDT Pharmacy Family Practice [address] [facility], [place] [address] [place] [address] [place] Pharmacist [address] [place] [address] Encounter for medication review* Allergies Active Allergy Reactions Criticality Noted Date Comments Ragweed 07/21/2014 documented as of this encounter (statuses as of 04/10/2024) Medications Medication Sig Dispensed Refills Start Date [...] Tablet (Lopressor)Indicati ons:NSTEMI (non-ST elevated myocardial infarction) ([facility]) Take 1 Tablet by mouth in [...] ndications:COPD, group B, by GOLD 2017 classification ([facility]) INHALE 1 PUFF ONCE DAILY 60 [...] :COPD, group B, by GOLD 2017 classification ([facility]) Inhale 2 Puffs by mouth every [...] Tablet by mouth in the morning. Active Famotidine 20 MG Oral Tablet (Pepcid)Indications :Gastroesophageal reflux disease without esophagitis Take 1 Tablet by mouth every other day. 45 Tablet 3 08/06/2023 04/10/20 24 Discontinued Hospital, Clinic, or Other Facility Administered Medication Ordered Dose Route Frequency Start Date End Date Status Albuterol Sulfate (Proventil) (2.5 MG/3ML) 0.083% inhalation solution 2.5 mgIndications:COPD, group B, by GOLD 2017 classification ([facility]) 2.5 mg NEBULIZER PRN 06/30/2023 06/29/2024 Acti ve Albuterol Sulfate (Proventil) (5 MG/ML) 0.5% *conc* inhalation solution 2.5 mgIndications:COPD, group B, by GOLD 2017 classification ([facility]) 2.5 mg NEBULIZER PRN 06/30/2023 06/29/2024 Acti ve Albuterol Sulfate (Proventil) (2.5 MG/3ML) 0.083% inhalation solution 2.5 mgIndications:COPD (chronic obstructive pulmonary disease) with chronic bronchitis (HCC) 2.5 mg NEBULIZER Q4H PRN 08/06/2023 Active documented as of this encounter (statuses as of 04/10/2024) Active Problems Problem Noted Date Diagnosed Date Seasonal allergic rhinitis due to pollen 024 Prediabetes 12/22/2023 Chronic hypoxemic respiratory failure 12/21/2023 Mild cognitive impairment 12/21/2023 Renal artery stenosis 07/17/2023 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, bilateral 07/17/2023 Dysphagia 07/17/2023 Coronary artery disease invo lving [place] coronary artery of [place] heart without angina pectoris 05/29/2023 Age-related osteoporosis [...] as of this encounter (statuses as of 04/10/2024) Resolved Problems Problem Noted Date Diagnosed Date [...] as of this encounter (statuses as of 04/10/2024) Immunizations Name Administration Dates Next Due COVID-19 [...] on file documented as of this encounter Progress Notes * Ian Horne, [facility] - 04/10/2024 3:55 PM EDT Medication Therapy Disease [facility] - Medication Reconciliation Laura Pagan is an 79 year old being seen for medication reconciliation. Prescription insurance information: P Do you have any other prescription coverage: No Preferred pharmacy: [facility] [x] Problem list reviewed [x] Allergies reviewed and updated if needed [x] Drug interaction check completed [] HEDIS list addressed Immunizations: Up to Date Medication Organization/Adherence: Has home care nurse or caregiver: no Patient uses a pill box? Yes, refill(s) completed by self When you are at home, how often do you miss doses of medications? Less than once a week Reports specifically missing due to being away from house and not taking once returning home How difficult is it for you to pay for your medications? Somewhat difficult How often do you experience side effects from your medications? Never Labs/Vitals/Risk Scores: The ASCVD Risk score (Maggie RASCON, et al., 2019) failed to calculate for the following reasons: The patient has a prior [place] or stroke diagnosis BP Readings from Last 3 Encounters: 04/10/24 108/58 12/21/23 190/98 12/05/23 182/100 Recent Labs Units 08/13/23 1533 HEMOGLOBIN A1C - [facility] % 5.8* Recent Labs Units 11/13/23 1007 08/13/23 1533 06/28/23 1131 ESTIMATED GLOMERULAR FILTRATION RATE - [facility] mL/min 55* 59* 60 Serum creatinine: 1.1 mg/dL (H) 11/13/23 1007 Estimated creatinine clearance: 25.2 mL/min (A) Assessment & Plan: Medication discrepancies identified: - none Dose/frequency of medications appropriate for current renal function? yes Other medication problems identified: - Trelegy cost Patient education provided: - rinse mouth after each Trelegy use - Provided PACE/PACENET pamphlet and contact number to assist with medication cost Referral pended for follow up management of: N/A Summary- Changes & Recommendations: - continue current medications, recommend contacting PACE program for enrollment I spent a total of 10-19 minutes (exact time 10 mins) on the date of service in preparation, delivery, and documentation of the care provided to Laura Pagan excluding any time spent in the performance of separately billed services or time spent by another provider/QHP. Ian Horne [facility] Clinical Pharmacist - Jewel Inserter Medication Therapy Management Clinic 04/10/2024, 3:55 PM documented in this encounter Plan of Treatment Upcoming Encounters Date Type Department Care Team (Late st Contact Info) Description 05/29/2024 2:00 PM EDT Nurse Only Ancillary [address], [place] [address] [place] [address] [place], Nurse Annual Wellness Visit [address] [place] [address] Health Maintenance Due Date Last Done Comments *BISPHONATE OR OTHER ACCEPTABLE MEDICATION NEEDED FOR OSTEOPOROSIS (REFER TO SMARTSET #1146) 10/09/2022 COVID-19 Vaccine ( season) 2023 10/27/2022, 08/29/2021, 11/23/2020, Additional history exists DISCUSS TOBACCO CESSATION (REFER TO SMARTSET #3291) 09/22/2023 09/22/2022, 07/29/2021, 05/17/2021 CKD PHOS USE SMARTSET 36670 10/12/202309/18, 08/21/2020, 01/10/2019 DXA Scan 12/21/2023 12/20/2021, 12/20/2021 *CXR OR CT FOR COPD EVER 03/30/2024 GFR 05/13/2024 11/13/2023, 07/19, 06/28/2023, Additional history exists Influenza Vaccine (FLU shot) (#1) 2024 Albumin/Creatinine Ratio 07/17/2024 07/17/2023, 09/18 Depression Screening 07/17/2024 07/17/2023 DTaP,Tdap,and Td Vaccines (2 - Td or Tdap) 07/21/2024 07/21/2014 HbA1c 08/13/2024 08/13/2023 CKD HGB USE SMARTSET 68371 11/13/202411/13, 11/13/2023, 08/13/2023, Additional history exists O2 ASSESSMENT COMPLETED IN PAST YEAR FOR COPD 04/10/2025 04/10/2024 Alpha-1 Antitrypsin Completed 03/23/2017 VITAMIN D LEVEL ONCE IN A LIFETIME-USE SMARTSET# [id number] Completed 08/14/2018, 05/19/2016, 07/31/2014 Zoster Vaccines Completed [...] as of this encounter Visit Diagnoses Diagnosis Encounter for medication review- Primary Encounter for long-term (current) use of other medications documented in this encounter Care Teams Systems Planner Relationship Specialty Start Date End Date Phi Kyle DO [address] [place] [address] PCP - General Family Medicine 08/16/23 documented as of this encounter
--- OUTSIDE RECORDS SUMMARY | 2024-06-04 09:56 | External Medical Summary | Summary of Care ---
Author Name Unknown Organization [facility] Address [address] [facility] [place] [address] Phone [phone] Care Team Providers Care Property Officer Name Role Phone Anabella, Phi Primary Care Provider + [phone] Encounter Details Date Type Department Care Team (Late st Contact Info) Description 02/05/2024 Population Health External Data Unspecified Department Allergies Active Allergy Reactions Criticality Noted Date Comments Ragweed 07/21/2014 documented as of this encounter (statuses as of 02/06/2024) Medications Medication Sig Dispensed Refills Start Date End Date Status Aspirin EC 81 MG Oral Tablet Delayed Release Take 1 Tablet by mouth in the morning. Active Melatonin 10 MG Oral Capsule Take 1 Capsule by mouth at bedtime. Active Albuterol Sulfate HFA 108 (90 Base) MCG/ACT Inhalation Aerosol SolutionIndications:C OPD, group B, by GOLD 2017 classification ([facility]) Inhale 2 Puffs by mouth every 6 hours as needed for Cough, Shortness of Breath or Wheezing. 18 g 3 05/15/2023 Active Lisinopril 20 MG Oral Tablet (Prinivil)Indications :Hypertensive kidney disease with stage 3b chronic kidney disease (HCC) Take 1 Tablet by mouth in the morning. 90 Tablet 3 05/29/2023 Active Atorvastatin Calcium 40 MG Oral Tablet (Lipitor)Indications: Dyslipidemia, goal LDL below 160 Take 1 tablet by mouth once daily 90 Tablet 1 06/26/2023 Active Famotidine 20 MG Oral Tablet (Pepcid)Indications:G astroesophageal reflux disease without esophagitis Take 1 Tablet by mouth every other day. 45 Tablet 3 08/06/2023 Active Isosorbide Mononitrate ER 30 MG Oral Tablet Extended Release 24 Hour (Imdur)Indications:NS VASILIY (non-ST elevated myocardial infarction) ([facility]) Take 1 tablet by mouth once daily 90 Tablet 3 08/21/2023 Active Mirtazapine 15 MG Oral Tablet (Remeron) TAKE 1 TABLET BY MOUTH AT BEDTIME 90 Tablet 1 09/11/2023 Active Metoprolol Tartrate 25 MG Oral Tablet (Lopressor)Indication s:NSTEMI (non-ST elevated myocardial infarction) ([facility]) Take 1 Tablet by mouth in the morning and 1 Tablet before bedtime. 180 Tablet 3 09/21/2023 Active Sertraline HCl 100 MG Oral Tablet (Zoloft)Indications:A nxiety Take 1 tablet by mouth once daily 90 Tablet 3 10/05/2023 Active Fenofibrate 145 MG Oral Tablet (Tricor)Indications:H ypertriglyceridemia Take 1 tablet by mouth once daily [...] ations:COPD, group B, by GOLD 2017 classification ([facility]) INHALE 1 PUFF ONCE DAILY [...] DO NOT OPEN OR BREAK 01/02/2024 Active Hospital, Clinic, or Other Facility Administered Medication Ordered Dose Route Frequency Start Date End Date Status Albuterol Sulfate (Proventil) (2.5 MG/3ML) 0.083% inhalation solution 2.5 mgIndications:COPD, group B, by GOLD 2017 classification ([facility]) 2.5 mg NEBULIZER PRN 06/30/2023 06/29/2024 Acti ve Albuterol Sulfate (Proventil) (5 MG/ML) 0.5% *conc* inhalation solution 2.5 mgIndications:COPD, group B, by GOLD 2017 classification ([facility]) 2.5 mg NEBULIZER PRN 06/30/2023 06/29/2024 Acti ve Albuterol Sulfate (Proventil) (2.5 MG/3ML) 0.083% inhalation solution 2.5 mgIndications:COPD (chronic obstructive pulmonary disease) with chronic bronchitis ([facility]) 2.5 mg NEBULIZER Q4H PRN 08/06/2023 Active documented as of this encounter (statuses as of 02/06/2024) Active Problems Problem Noted Date Diagnosed Date Prediabetes 12/22/2023 Chronic hypoxemic respiratory failure 12/21/2023 Chronic hypoxemic respiratory failure 12/21/2023 Mild cognitive impairment 12/21/2023 Renal artery stenosis 07/17/2023 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, bilateral 07/17/2023 Dysphagia 07/17/2023 Coronary artery disease invo lving [place] coronary artery of [place] heart without angina pectoris 05/29/2023 Age-related osteoporosis [...] 3.6 cm AAA noted on CT Chest 5/12/21 DEVAN (generalized anxiety disorder) 02/09/2021 Multiple lung nodules 02/09/2021 Chronic kidney disease, stage 3b 01/25/2021 Overview: Per CKD protocol Hypertensive kidney disease with stage 3b chronic kidney disease 01/25/2021 Overview: Per CKD protocol Anemia due to stage 3b chronic kidney disease Overview: Per CKD protocol - Per CKD protocol Panlobular emphysema 05/15/2017 HTN, goal below 140/90 01/15/2017 Old [place] (myocardial infarction) 01/15/2017 Restless legs syndrome 04/06/2016 COPD, group B, by GOLD 2017 classification 08/28 Overview: Unable to classify severity based on 08/20/2014 PFT Gastroesophageal reflux disease without esophagi tis 07/21/2014 Dyslipidemia, goal LDL below 70 07/21/2014 Hiatal hernia documented as of this encounter (statuses as of 02/06/2024) Resolved Problems Problem Noted Date Diagnosed Date [...] as of this encounter (statuses as of 02/06/2024) Immunizations Name Administration Dates Next Due COVID-19 [...] money to get more. Never true 07/21/2023 Sex and Gender Information Value Date [...] EDT Office Visit Family Practice [address] [place] [address] [place] [address] Phi Kyle, DO [address] [place] [address] 05/29/2024 2:00 PM EDT Nurse Only Ancillary [address] [place] [address] [place] [address] [place], Nurse Annual Wellness Visit [address] [place] [address] Health Maintenance Due Date Last Done Comments *BISPHONATE OR OTHER ACCEPTABLE MEDICATION NEEDED FOR OSTEOPOROSIS (REFER TO SMARTSET #1146) 10/09/2022 COVID-19 Vaccine ( season) 2023 10/27/2022, 08/29/2021, 11/23/2020, Additional history exists DISCUSS TOBACCO CESSATION (REFER TO SMARTSET #3291) 09/22/2023 09/22/2022, 07/29/2021, 05/17/2021 CKD PHOS USE SMARTSET 27434 10/12/202309/18, 08/21/2020, 01/10/2019 DXA Scan 12/21/2023 12/20/2021, 12/20/2021 *NEPHROLOGY REFERRAL DUE TO RESISTANT HTN 01/18/2024 GFR 05/13/2024 11/13/2023, 07/19, 06/28/2023, Additional history exists Influenza Vaccine (FLU shot) (Season Ended) 2024 Albumin/Creatinine Ratio 07/17/2024 07/17/2023, 09/18 Depression Screening 07/17/2024 07/17/2023 DTaP,Tdap,and Td Vaccines (2 - Td or Tdap) 07/21/2024 07/21/2014 HbA1c 08/13/2024 08/13/2023 CKD HGB USE SMARTSET [id number] 11/13/202411/13, 11/13/2023, 08/13/2023, Additional history exists O2 ASSESSMENT COMPLETED IN PAST YEAR FOR COPD 12/20/2024 12/21/2023 Alpha-1 Antitrypsin Completed 03/23/2017 VITAMIN D LEVEL ONCE IN A LIFETIME-USE SMARTSET# [id number] Completed 08/14/2018, 05/19/2016, 07/31/2014 Zoster Vaccines Completed [...] filedocumented as of this encounter Care Teams Property Officer Relationship Specialty Start Date End Date Phi Kyle DO [address] [place] [address] PCP - General Family Medicine 08/16/23 documented as of this encounter
--- OUTSIDE RECORDS SUMMARY | 2024-06-04 09:56 | External Medical Summary | Summary of Care ---
Author Name Unknown Organization [facility] Address [address] [facility] [place] [address] Phone [phone] Care Team Providers Care Airfreight Loading Supervisor Name Role Phone AnabellaPhi armstrong Primary Care Provider + [phone] Encounter Details Date Type Department Care Team (Late st Contact Info) Description 12/13/2023 Population Health External Data Unspecified Department Allergies Active Allergy Reactions Criticality Noted Date Comments Ragweed 07/21/2014 documented as of this encounter (statuses as of 12/18/2023) Medications Medication Sig Dispensed Refills Start Date End Date Status Calcium Carbonate-Vitamin D 600-400 MG-UNIT Oral Tablet Take 1 Tablet by mouth in the morning. 0 Active Aspirin EC 81 MG Oral Tablet Delayed Release Take 1 Tablet by mouth in the morning. As needed for pain. 0 Active Melatonin 10 MG Oral Capsule Take 1 Capsule by mouth at bedtime. 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 42 Tablet 0 04/27/2022 Active Additional Information Patient not taking.Reported on 12/05/2023 FeroSul 325 (65 Fe) MG Oral Tablet (Ferrous Sulfate)Indications: Iron deficiency anemia due to chronic blood loss TAKE 1 TABLET BY MOUTH THREE TIMES DAILY WITH MEALS 90 Tablet 0 03/09/2023 Active Albuterol Sulfate HFA 108 (90 Base) MCG/ACT Inhalation Aerosol SolutionIndications: COPD, group B, by GOLD 2017 classification ([facility]) Inhale 2 Puffs by mouth every 6 hours as needed for Cough, Shortness of Breath or Wheezing. 18 g 3 05/15/2023 Active Lisinopril 20 MG Oral Tablet (Prinivil)Indication s:Hypertensive kidney disease with stage 3b chronic kidney disease ([facility]) Take 1 Tablet by mouth in the morning. 90 Tablet 3 05/29/2023 Active Trelegy Ellipta 200-62.5-25 MCG/ACT Aerosol Powder Breath Activated (Fluticasone-Umeclid inium-Vilanterol)Ind ications:COPD, group B, by GOLD 2017 classification ([facility]) Inhale 1 Puff by mouth daily. 60 Blister Dosing Unit 5 05/29/2023 Active Atorvastatin Calcium 40 MG Oral Tablet (Lipitor)Indications :Dyslipidemia, goal LDL below 160 Take 1 tablet by mouth once daily 90 Tablet 1 06/26/2023 Active Ondansetron HCl 4 MG Oral Tablet (Zofran)Indications: Nausea and vomiting, unspecified vomiting type TAKE 1 TABLET BY MOUTH EVERY 6 HOURS NEEDED FOR NAUSEA FOR VOMITING 30 Tablet 3 07/05/2023 Active Additional Information Patient not taking.Reported on 12/05/2023 Amoxicillin-Pot Clavulanate 875-125 MG Oral Tablet (Augmentin) Take 1 Tablet by mouth in the morning and 1 Tablet before bedtime. 0 Active amLODIPine Besylate 5 MG Oral Tablet (Norvasc) Take 1 Tablet by mouth in the morning. 0 Active predniSONE 20 MG Oral Tablet (Deltasone)Indicatio ns:COPD exacerbation (HCC) Take 4 tabs daily for 2 days, 3 tabs daily for 2 days, 2 tabs daily for 2 days, 1 tab daily for 2 days 20 Tablet 0 07/17/2023 Active Additional Information Patient not taking.Reported on 12/05/2023 Ipratropium-Albutero l 0.5-2.5 (3) MG/3ML Inhalation Solution (Duoneb)Indications: COPD exacerbation (HCC) Inhale 3 mL by mouth every 6 hours as needed for Shortness of Breath, Cough or Wheezing. 360 mL 2 07/17/2023 Active Additional Information Patient not taking.Reported on 12/05/2023 Famotidine 20 MG Oral Tablet (Pepcid)Indications: Gastroesophageal reflux disease without esophagitis Take 1 Tablet by mouth every other day. 45 Tablet 3 08/06/2023 Active Isosorbide Mononitrate ER 30 MG Oral Tablet Extended Release 24 Hour (Imdur)Indications:N STEMI (non-ST elevated myocardial infarction) ([facility]) Take 1 tablet by mouth once daily 90 Tablet 3 08/21/2023 Active busPIRone HCl 10 MG Oral Tablet (Buspar) Take 1/2 (one-half) tablet by mouth twice daily 90 Tablet 0 08/30/2023 Active Mirtazapine 15 MG Oral Tablet (Remeron) TAKE 1 TABLET BY MOUTH AT BEDTIME 90 Tablet 1 09/11/2023 Active Icosapent Ethyl 1 GM Oral Capsule (Vascepa) Take 2 Capsules by mouth 2 times a day with morning and evening meals. Swallow capsules whole, do not open or break. 120 Capsule 5 09/11/2023 Active Additional Information Patient not taking.Reported on 12/05/2023 Metoprolol Tartrate 25 MG Oral Tablet (Lopressor)Indicatio ns:NSTEMI (non-ST elevated myocardial infarction) ([facility]) Take 1 Tablet by mouth in the morning and 1 Tablet before bedtime. 180 Tablet 3 09/21/2023 Active Sertraline HCl 100 MG Oral Tablet (Zoloft)Indications: Anxiety Take 1 tablet by mouth once daily 90 Tablet 3 10/05/2023 Active Omeprazole 20 MG Oral Capsule Delayed Release (PriLOSEC)Indication s:Acute gastric ulcer, unspecified whether gastric ulcer hemorrhage or perforation present Take 2 capsules by mouth once daily 1 hour prior to breakfast 60 Capsule 0 10/31/2023 Active Fenofibrate 145 MG Oral Tablet (Tricor)Indications: Hypertriglyceridemia Take 1 tablet by mouth once daily 90 Tablet 0 11/27/2023 Active Hospital, Clinic, or Other Facility Administered [...] mgIndications:COPD, group B, by GOLD 2017 classification (HCC) 2.5 mg NEBULIZER PRN 06/30/2023 06/29/2024 Acti ve Albuterol Sulfate (Proventil) (2.5 MG/3ML) 0.083% inhalation solution 2.5 mgIndications:COPD (chronic obstructive pulmonary disease) with chronic bronchitis (HCC) 2.5 mg NEBULIZER Q4H PRN 08/06/2023 Active documented as of this encounter (statuses as of 12/18/2023) Active Problems Problem Noted Date Diagnosed Date Renal artery stenosis 07/17/2023 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, bilateral 07/17/2023 Dysphagia 07/17/2023 Coronary artery disease invo lving [place] coronary artery of [place] heart without angina pectoris 05/29/2023 Major depressive disorder with single episode Age-related osteoporosis wit hout current pathological fracture [...] protocol Panlobular emphysema 05/15/2017 HTN, goal below 130/80 01/15/2017 Old [place] (myocardial infarction) 01/15/2017 Restless legs syndrome 04/06/2016 COPD, group B, by GOLD 2017 classification 08/28 Overview: Unable to classify severity based on 08/20/2014 PFT Gastroesophageal reflux disease without esophagi tis 07/21/2014 Dyslipidemia 07/21/2014 Hiatal hernia documented as of this encounter (statuses as of 12/18/2023) Resolved Problems Problem Noted Date Diagnosed Date Resolved Date Abdominal aortic aneurysm (A AA) without rupture 10/06/2022 11/08/2023 Abdominal aortic aneurysm (A AA) without rupture 10/06/2022 11/08/2023 NSTEMI (non-ST elevated myoc ardial infarction) 04/18/2021 [...] as of this encounter (statuses as of 12/18/2023) Immunizations Name Administration Dates Next Due COVID-19 [...] Care Team (Late st Contact Info) Description 12/21/2023 2:20 PM EDT Office Visit Family Practice [address], [place] [address] [place] [phone] Phi Kyle DO [address] [place] [id number] 12/31/2023 10:30 AM EDT Imaging Radiology, [address] [place] [address] 01/14/2024 10:20 AM EDT Office Visit Rheumatology [address] [place] [address] Elías Funes MD [address] [place] [address] [place] [address] Health Maintenance Due Date Last Done Comments *BISPHONATE OR OTHER ACCEPTABLE MEDICATION NEEDED FOR OSTEOPOROSIS (REFER TO SMARTSET #1146) 10/09/2022 COVID-19 Vaccine ( season) 2023 10/27/2022, 08/29/2021, 11/23/2020, Additional history exists DISCUSS TOBACCO CESSATION (REFER TO SMARTSET #3291) 09/22/2023 09/22/2022, 07/29/2021, 05/17/2021 CKD PHOS USE SMARTSET 27566 10/12/202309/18, 08/21/2020, 01/10/2019 DXA Scan 12/21/2023 12/20/2021, 12/20/2021 GFR 05/13/2024 11/13/2023, 07/19, 06/28/2023, Additional history exists Influenza Vaccine (FLU shot) (Season Ended) 2024 Albumin/Creatinine Ratio 07/17/2024 07/17/2023, 09/18 Depression Screening 07/17/2024 07/17/2023 DTaP,Tdap,and Td Vaccines (2 - Td or Tdap) 07/21/2024 07/21/2014 O2 ASSESSMENT COMPLETED IN PAST YEAR FOR COPD 08/16/2024 08/16/2023 CKD HGB USE SMARTSET 51678 11/13/202411/13, 11/13/2023, 08/13/2023, Additional history exists Alpha-1 Antitrypsin Completed 03/23/2017 VITAMIN D LEVEL ONCE IN A LIFETIME-USE SMARTSET# [id number] Completed 08/14/2018, 05/19/2016, 07/31/2014 Zoster Vaccines Completed 06/17/2020, 11/2019, 04/17/2020, Additional history exists Cologuard Discontinued 10/20/2021, 09/18, 10/13/2021, Additional history exists Colorectal Cancer Screening Discontinued Pneumococcal Vaccine: 65+ Years Completed 10/27/2022, 06/17/2015, 08/31/2014 LUNG CANCER SCREENING - USE SMARTSET 49588 Completed 09/06/2023, 08/15/2022, 07/18/2021, Additional history exists Colonoscopy Discontinued [...] filedocumented as of this encounter Care Teams Airfreight Loading Supervisor Relationship Specialty Start Date End Date Phi Kyle DO [address] [place] [address] PCP - General Family Medicine 08/16/23 documented as of this encounter
--- OUTSIDE RECORDS SUMMARY | 2024-06-04 09:56 | External Medical Summary | Summary of Care ---
Author Name Unknown Organization [facility] Address [address] [place] [address] Phone [phone] Care Team Providers Care Pulpit Operator Name Role Phone Phi Kyle DO Primary Care Provider [phone] Reason for Referral * Evaluate & Treat - Unlimited Visits (Within 10 days (routine)) - Authorized Specialty Diagnoses / Procedures Referred By Mary Kay lu Referred To Contact Psychiatry / Psychology Diagnoses Mild cognitive impairment Phi Kyle DO [address] [place] [address] Referral ID Status Reason Start Date Expiration Date Visits Requested Visits Authorized [id number] Authorized Specialty Services Required 12/21/2023 999 999 Question Answer Referral Priority Within 10 days (routine) Where should this appointment be scheduled? [facility] Is this referral for medication management? No What condition is this patient being seen for? Mild Cognitive Impairment/Mild Neurocognitive Disorder Does the patient have SEVERE cognitive impairment on bedside screeners? (MoCA/MMSE <= 10) No Comments Neuropsychological evaluations are INTERACTIVE and use materials that require a patient to SEE, HEAR, and often WRITE. If a patient is unable to engage in this way, neurocognitive assessment may be abbreviated or deemed inappropriate. Please use caution in establishing expectations with your patient, and note any limitations in the comments section of the referral order. Reason for Visit * Reason Comments Follow Up Encounter Details Date Type Department Care Team (Latest Contact Info) Description 12/21/2023 2:20 PM EDT Office Visit Family Practice [address] [place] [address] [place] [address] Phi Kyle DO [address] [place] [address] Hypertensive kidney disease with stage 3b chronic kidney disease (HCC)*; Coronary artery disease involving catawba coronary artery of catawba heart without angina pectoris; Dyslipidemia, goal LDL below 70; Prediabetes; COPD, group B, by GOLD 2017 classification ([facility]); Multiple lung nodules; Chronic hypoxemic respiratory failure (HCC); 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 0 Active Aspirin EC 81 MG Oral Tablet Delayed Release Take 1 Tablet by mouth in the morning. As needed for pain. 0 Active Melatonin 10 MG Oral Capsule Take 1 Capsule by mouth at bedtime. 0 Active Albuterol Sulfate HFA 108 (90 Base) MCG/ACT Inhalation Aerosol SolutionIndication s:COPD, group B, by GOLD 2017 classification ([facility]) Inhale 2 Puffs by mouth every 6 hours as needed for Cough, Shortness of Breath or Wheezing. 18 g 3 3 Active Lisinopril 20 MG Oral Tablet (Prinivil)Indicati ons:Hypertensive kidney disease with stage 3b chronic kidney disease (HCC) Take 1 Tablet by mouth in the morning. 90 Tablet 3 3 Active Trelegy Ellipta 200-62.5-25 MCG/ACT Aerosol Powder Breath Activated (Fluticasone-Umecl idinium-Vilanterol )Indications:COPD, group B, by GOLD 2017 classification ([facility]) Inhale 1 Puff by mouth daily. 60 Blister Dosing Unit 5 3 Active Atorvastatin Calcium 40 MG Oral Tablet (Lipitor)Indicatio ns:Dyslipidemia, goal LDL below 160 Take 1 tablet by mouth once daily 90 Tablet 1 3 Active Famotidine 20 MG Oral Tablet (Pepcid)Indication s:Gastroesophageal reflux disease without esophagitis Take 1 Tablet by mouth every other day. 45 Tablet 3 3 Active Isosorbide Mononitrate ER 30 MG Oral Tablet Extended Release 24 Hour (Imdur)Indications :NSTEMI (non-ST elevated myocardial infarction) (HCC) Take 1 tablet by mouth once daily 90 Tablet 3 3 Active busPIRone HCl 10 MG Oral Tablet (Buspar) Take 1/2 (one-half) tablet by mouth twice daily 90 Tablet 0 3 Active Mirtazapine 15 MG Oral Tablet [...] once daily 90 Tablet 3 4 Active Omeprazole 20 MG Oral Capsule Delayed Release (PriLOSEC)Indicati ons:Acute gastric ulcer, unspecified whether gastric ulcer hemorrhage or perforation present Take 2 capsules by mouth once daily 1 hour prior to breakfast 60 Capsule 0 4 Active Fenofibrate 145 MG Oral Tablet (Tricor)Indication s:Hypertriglycerid emia Take 1 tablet by mouth once daily 90 Tablet 0 4 Active amLODIPine Besylate 5 MG Oral Tablet (Norvasc)Indicatio ns:Hypertensive kidney disease with stage 3b chronic kidney disease (HCC) Take 2 Tablets by mouth in the morning. 0 4 Active Varenicline Tartrate 0.5 MG X 11 & 1 MG X 42 OralIndications:To bacco use disorder Take as directed on box. 42 Tablet 0 2 12/22/19 24 Discontinued(Med ication List Clean Up) FeroSul 325 (65 Fe) MG Oral Tablet (Ferrous Sulfate)Indication s:Iron deficiency anemia due to chronic blood loss TAKE 1 TABLET BY MOUTH THREE TIMES DAILY WITH MEALS 90 Tablet 0 3 12/22/19 24 Discontinued(Med ication List Clean Up) Ondansetron HCl 4 MG Oral Tablet (Zofran)Indication s:Nausea and vomiting, unspecified vomiting type TAKE 1 TABLET BY MOUTH EVERY 6 HOURS NEEDED FOR NAUSEA FOR VOMITING 30 Tablet 3 3 12/22/19 24 Discontinued(Med ication List Clean Up) Amoxicillin-Pot Clavulanate 875-125 MG Oral Tablet (Augmentin) Take 1 Tablet by mouth in the morning and 1 Tablet before bedtime. 0 12/22/19 24 Discontinued(Med ication List Clean Up) amLODIPine Besylate 5 MG Oral Tablet (Norvasc) Take 1 Tablet by mouth in the morning. 0 12/21/19 24 Discontinued predniSONE 20 MG Oral Tablet (Deltasone)Indicat ions:COPD exacerbation (HCC) Take 4 tabs daily for 2 days, 3 tabs daily for 2 days, 2 tabs daily for 2 days, 1 tab daily for 2 days 20 Tablet 0 3 12/22/19 24 Discontinued(Med ication List Clean Up) Ipratropium-Albute rol 0.5-2.5 (3) MG/3ML Inhalation Solution (Duoneb)Indication s:COPD exacerbation (HCC) Inhale 3 mL by mouth every 6 hours as needed for Shortness of Breath, Cough or Wheezing. 360 mL 2 3 12/22/19 24 Discontinued(Med ication List Clean Up) Icosapent Ethyl 1 GM Oral Capsule (Vascepa) Take 2 Capsules by mouth 2 times a day with morning and evening meals. Swallow capsules whole, do not open or break. 120 Capsule 5 3 12/22/19 24 Discontinued(Med ication List Clean Up) Hospital, Clinic, or Other Facility Administered Medication Ordered Dose Route Frequency Start Date End Date Status Albuterol Sulfate (Proventil) (2.5 MG/3ML) 0.083% inhalation solution 2.5 mgIndications:COPD, group B, by GOLD 2017 classification ([facility]) 2.5 mg NEBULIZER PRN 06/30/2023 [...] as of this encounter (statuses as of 12/22/2023) Active Problems Problem Noted Date Diagnosed Date Prediabetes 12/22/2023 Chronic hypoxemic respiratory failure 12/21/2023 Chronic hypoxemic respiratory failure 12/21/2023 Mild cognitive impairment 12/21/2023 Renal artery stenosis 07/17/2023 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, bilateral 07/17/2023 Dysphagia 07/17/2023 Coronary artery disease invo lving catawba coronary artery of catawba heart without angina pectoris 05/29/2023 Age-related osteoporosis [...] 05/15/2017 HTN, goal below 130/80 01/15/2017 Old [place] (myocardial infarction) 01/15/2017 Restless legs syndrome 04/06/2016 COPD, group B, by GOLD 2017 classification 08/28 Overview: Unable to classify severity based on 08/20/2014 PFT Gastroesophageal reflux disease without esophagi tis 07/21/2014 Dyslipidemia, goal LDL below 70 07/21/2014 Hiatal hernia documented as of this encounter (statuses as of 12/22/2023) Resolved Problems Problem Noted Date Diagnosed Date [...] as of this encounter (statuses as of 12/22/2023) Immunizations Name Administration Dates Next Due COVID-19 [...] Sign Reading Time Taken Comments Blood Pressure 190/98 12/21/2023 2:40 PM EDT Pulse 61 12/21/2023 2:40 PM EDT Temperature 37.2 C (98.9 F) 12/21/2023 2:40 PM ED T Respiratory Rate - - Oxygen Saturation 98% 12/21/2023 2:40 PM EDT Inhaled Oxygen Concentration - - Weight 37.4 kg (82 lb 8 oz) 12/21/2023 2:40 PM E DT Height - - Body Mass Index 15.09 07/17/2023 12:02 PM EDT documented in this encounter Progress Notes * Phi Kyle DO - 12/21/2023 3:54 PM EDT Images from the original note were not included. History of Present Illness Laura Pagan is a 78 year old female that presents for Follow Up Patient is a 78-year-old female with history of hypertension, CKD 3, coronary disease, prediabetes,dyslipidemia, COPD, multiple lung nodules, tobacco use, chronic hypoxemic respiratory failure, pulmonary cachexia, abdominal aortic aneurysm, GERD, lumbar degenerative disc disease and generalized anxiety disorder. Patient is here with daughter in attendance.Patient denies fatigue fever chills or sweats. Patient denies nasal congestion sore throat or earache. Patient complains of chronic nonproductive cough and dyspnea on exertion.. Patient denies chest pain palpitations or edema. Patient denies abdominal pain nausea vomiting diarrhea constipation. Patient denies urinary frequency dysuria urgency or hematuria. Patient complains of chronic low back pain with difficulty walking long distances. Patient uses grocery cart while walking through stores.. Patient denies headache or dizziness. Patient denies skin rash or lesions. Patient is a current smoker and is not interested in quitting tobacco. Patient complains of memory loss and episodic dissociation from her surroundings. Patient denies headache, blurred vision, loss of balance, muscle weakness or numbness. Patient states she suffered a previous traumatic experience when her had in bed next to her. Review systems otherwise negative Physical Exam Vitals: 12/21/23 1440 Temp: 37.2 C (98.9 F) Pulse: 61 SpO2: 98% BP: 190/98 BP Readings from Last 3 Encounters: 12/21/23 190/98 12/05/23 182/100 08/16/23 122/70 Wt Readings from Last 3 Encounters: 12/21/23 37.4 kg (82 lb 8 oz) 12/05/23 37.4 kg (82 lb 6.4 oz) 08/16/23 34.4 kg (75 lb 12.8 oz) BMI Readings from Last 3 Encounters: 12/21/23 15.09 kg/m 12/05/23 15.07 kg/m 08/16/23 13.86 kg/m BP 190/98 (BP Site: Right Arm, BP Position: Sitting) | Pulse 61 | Temp 37.2 C (98.9 F) | Wt 37.4 kg (82 lb 8 oz) | SpO2 98% | BMI 15.09 kg/m | BSA 1.28 m General: alert, and no distress, malnourished Head: Normocephalic, No masses, lesions, tenderness or abnormalities Eye Exam: PERRLA, extraocular movements intact, conjunctiva are pink and non- injected, sclera clear Ears: External ears normal, Canals clear, TM's Normal Nose: no mucosal erythema, no mucosal edema, no purulent discharge Oropharynx: no exudate, no erythema, lips, buccal mucosa, and tongue normal, and mucous membranes are moist Neck: supple, no adenopathy, no bruits, thyroid normal size, non-tender, without nodularity Lymph: no palpable lymphadenopathy Heart: regular rate & rhythm, no murmur, and no gallops Lungs: chest symmetric with normal AP diameter, no chest deformities noted, no chest wall tenderness, decreased breath sounds, no rales rhonchi or wheeze Pulses: carotid=2/4 w/o bruits Abdomen: abdomen soft, non-tender, normal bowel sounds, and no masses or organomegaly Back: back symmetric, no curvature, no costovertebral angle tenderness, lumbar paravertebral musclespasm and tenderness decreased range of motion lumbar flexion L1-L5 Extremities: less than 2 second capillary refill, no joint deformities, effusion, or inflammation Neuro Exam: alert & oriented x 3 with fluent speech, no focal motor/sensory deficits, gait normal, reflexes normal and symmetric, memory loss with decreased short-term recall, MMSE 27/30 Skin: skin color, texture, turgor are normal, no rashes or significant lesions I have reviewed the following results: Lipid Panel, Hemoglobin A1C, TSH, CBC, and BMP Assessment and Plan Hypertensive kidney disease with stage 3b chronic kidney disease (HCC) Increase amlodipine 5 mg take 2 tabs once daily Continue metoprolol tartrate 25 mg 1 tab twice daily Continue lisinopril 20 mg 1 tab once daily Home blood pressure monitor record daily Cardiac diet Return to office in 2 weeks for nurse visit for BP check - MYG GENERAL VITALS PT ENTERED - MYG FITNESS PT ENTERED Coronary artery disease involving catawba coronary artery of catawba heart without angina pectoris Stable Continue present medication Aspirin 81 mg 1 tab once daily Metoprolol tartrate 25 mg 1 tab twice daily Imdur 30 mg 1 tab once daily Atorvastatin 40 mg 1 tab once daily Dyslipidemia, goal LDL below 70 Stable Continue present medication Atorvastatin 40 mg 1 tab once daily Fenofibrate 145 mg 1 tab once daily Prediabetes Diabetic diet and exercise COPD, group B, by GOLD 2017 classification (HCC) Stable Continue present medication Trelegy Ellipta 200-62.5-25 mcg inhale 1 puff once daily Albuterol HFA 2 puffs Q 4-6 hours p.r.n. 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 Lumbar degenerative disc disease Modified home therapeutic exercise Tylenol OTC as directed p.r.n. Tobacco use disorder Advise stop smoking DEVAN (generalized anxiety disorder) Continue present medication BuSpar 10 mg 1/2 tab twice daily Mirtazapine 15 mg 1 tab HS Wrap-Up Follow Up: Return in about 3 months (around 03/21/2024) for Clinic Visit. | For: Clinic Visit | Check-out note: Please schedule AWV please schedule nurse visit for BP check in 2 weeks Time: I spent a total of 40-54 minutes (exact time 40 mins) on the date of service in preparation, delivery, and documentation of the care provided to Laura Pagan excluding any time spent in the performance of separately billed services. * Cierra Lagos LPN - 12/21/2023 2:46 PM EDT Patient has been verbally educated on the need or importance of Immunizations: Covid and has declined topic(s). documented in this encounter Plan of Treatment Upcoming Encounters Date Type Department Care Team (Late st Contact Info) Description 12/31/2023 10:30 AM EDT Imaging Radiology, [address] [place] [address] 01/04/2024 2:30 PM EDT Nurse Only Family Practice [address] [facility] [place] [address] [place] [address] Nurse Martha Fam Prac [address] [place] [address] 01/14/2024 10:20 AM EDT Office Visit Rheumatology [address] [place] [address] Elías Funes MD [address] [place] [address] [place] [address] 03/28/2024 2:20 PM EDT Office Visit Family Practice [address] [place] [address] [place] [address] Phi Kyle DO [address] [place] [address] 05/29/2024 2:00 PM EDT Nurse Only Ancillary [address] [facility] [place] [address] [place] [phone] Martha Nurse Annual Wellness Visit [address] [place] [address] Scheduled Referrals Name Type Priority Associated Diagnoses Order Schedule ADULT/PEDS NEUROPSYCHOLOGY REFERRAL OP Referral Within 10 days (routine) Mild cognitive impairment Ordered: 12/21/2023 Health Maintenance Due Date Last Done Comments *BISPHONATE OR OTHER ACCEPTABLE MEDICATION NEEDED FOR OSTEOPOROSIS (REFER TO SMARTSET #1146) 10/09/2022 COVID-19 Vaccine ( season) 2023 10/27/2022, 08/29/2021, 11/23/2020, Additional history exists DISCUSS TOBACCO CESSATION (REFER TO SMARTSET #3291) 09/22/2023 09/22/2022, 07/29/2021, 05/17/2021 CKD PHOS USE SMARTSET 40549 10/12/202309/18, 08/21/2020, 01/10/2019 DXA Scan 12/21/2023 12/20/2021, 12/20/2021 GFR 05/13/2024 11/13/2023, 07/19, 06/28/2023, Additional history exists Influenza Vaccine (FLU shot) (Season Ended) 2024 Albumin/Creatinine Ratio 07/17/2024 07/17/2023, 09/18 Depression Screening 07/17/2024 07/17/2023 DTaP,Tdap,and Td Vaccines (2 - Td or Tdap) 07/21/2024 07/21/2014 CKD HGB USE SMARTSET 23369 11/13/202411/13, 11/13/2023, 08/13/2023, Additional history exists O2 ASSESSMENT COMPLETED IN PAST YEAR FOR COPD 12/20/2024 12/21/2023 Alpha-1 Antitrypsin Completed 03/23/2017 VITAMIN D LEVEL ONCE IN A LIFETIME-USE SMARTSET# [id number] Completed 08/14/2018, 05/19/2016, 07/31/2014 Zoster Vaccines Completed 06/17/2020, 0 11/2019, 04/17/2020, Additional history exists Cologuard Discontinued 10/20/2021, 09/18, 10/13/2021, Additional history exists Colorectal Cancer Screening Discontinued Pneumococcal Vaccine: 65+ Years Completed 10/27/2022, 06/17/2015, 08/31/2014 LUNG CANCER SCREENING - USE SMARTSET [id number] Completed 09/06/2023, 08/15/2022, 07/18/2021, Additional history exists [...] as of this encounter Visit Diagnoses Diagnosis Hypertensive kidney disease with stage 3b chronic kidney disease (HCC)- Primary Coronary artery disease involving catawba coronary artery of catawba heart without angina pectoris Dyslipidemia, goal LDL below 70 Other and unspecified hyperlipidemia Prediabetes Other abnormal glucose COPD, group B, by GOLD 2017 classification (HCC) Multiple lung nodules Other nonspecific abnormal finding of lung field Chronic hypoxemic respiratory failure (HCC) Chronic respiratory failure 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) Chronic airway obstruction, not elsewhere classified Abdominal aortic aneurysm (AAA) without rupture, unspecified part (HCC) Mild cognitive impairment Mild cognitive impairment, so stated Gastroesophageal reflux disease without esophagitis Esophageal reflux Lumbar degenerative disc disease Degeneration of lumbar or lumbosacral intervertebral disc Tobacco use disorder DEVAN (generalized anxiety disorder) Generalized anxiety disorder documented in this encounter Care Teams Pulpit Operator Relationship Specialty Start Date End Date Phi Kyle DO [address] [place] [address] PCP - General Family Medicine 08/16/23 documented as of this encounter"
--- OUTSIDE RECORDS SUMMARY | 2024-06-04 09:56 | External Medical Summary | Summary of Care ---
Author Name Unknown Organization [facility] Address [address] [place] [address] Phone [phone] Care Team Providers Care Gasoline Power Shovel Operator Name Role Phone AnabellaPhi armstrong Primary Care Provider + [phone] Encounter Details Date Type Department Care Team (Latest Contact Info) Description 01/29/2024 Medication Management Nancy [facility] [address] [place] [address] Marjorie Prabhakar, Formerly [facility] [phone] [place] [address] Referred for management of medication therapy* Allergies Active Allergy Reactions Criticality Noted Date Comments Ragweed 07/21/2014 documented as of this encounter (statuses as of 02/05/2024) Medications Medication Sig Dispensed Refills Start Date End Date Status Aspirin EC 81 MG Oral Tablet Delayed Release Take 1 Tablet by mouth in the morning. Active Melatonin 10 MG Oral Capsule Take 1 Capsule by mouth at bedtime. Active Albuterol Sulfate HFA 108 (90 Base) MCG/ACT Inhalation Aerosol SolutionIndications: COPD, group B, by GOLD 2017 classification ([facility]) Inhale 2 Puffs by mouth every 6 hours as needed for Cough, Shortness of Breath or Wheezing. 18 g 3 05/15/2023 Active Lisinopril 20 MG Oral Tablet (Prinivil)Indication s:Hypertensive kidney disease with stage 3b chronic kidney disease ([facility]) Take 1 Tablet by mouth in the morning. 90 Tablet 3 05/29/2023 Active Atorvastatin Calcium 40 MG Oral Tablet (Lipitor)Indications :Dyslipidemia, goal LDL below 160 Take 1 tablet by mouth once daily 90 Tablet 1 06/26/2023 Active Famotidine 20 MG Oral Tablet (Pepcid)Indications: Gastroesophageal reflux disease without esophagitis Take 1 Tablet by mouth every other day. 45 Tablet 3 08/06/2023 Active Isosorbide Mononitrate ER 30 MG Oral Tablet Extended Release 24 Hour (Imdur)Indications:N STEMI (non-ST elevated myocardial infarction) ([facility]) Take 1 tablet by mouth once daily 90 Tablet 3 08/21/2023 Active Mirtazapine 15 MG Oral Tablet (Remeron) TAKE 1 TABLET BY MOUTH AT BEDTIME 90 Tablet 1 09/11/2023 Active Metoprolol Tartrate 25 MG Oral Tablet (Lopressor)Indicatio ns:NSTEMI (non-ST elevated myocardial infarction) ([facility]) Take 1 Tablet by mouth in the [...] ications:COPD, group B, by GOLD 2017 classification ([facility]) INHALE 1 PUFF ONCE DAILY 60 Each [...] DO NOT OPEN OR BREAK 01/02/2024 Active Calcium Carbonate-Vitamin D 600-400 MG-UNIT Oral Tablet Take 1 Tablet by mouth in the morning. Discontinue d(Medicatio n List Clean Up) Hospital, Clinic, or Other Facility Administered Medication Ordered Dose Route Frequency Start Date End Date Status Albuterol Sulfate (Proventil) (2.5 MG/3ML) 0.083% inhalation solution 2.5 mgIndications:COPD, group B, by GOLD 2017 classification ([facility]) 2.5 mg NEBULIZER PRN 06/30/2023 06/29/2024 Acti ve Albuterol Sulfate (Proventil) (5 MG/ML) 0.5% *conc* inhalation solution 2.5 mgIndications:COPD, group B, by GOLD 2017 classification ([facility]) 2.5 mg NEBULIZER PRN 06/30/2023 06/29/2024 Acti ve Albuterol Sulfate (Proventil) (2.5 MG/3ML) 0.083% inhalation solution 2.5 mgIndications:COPD (chronic obstructive pulmonary disease) with chronic bronchitis (HCC) 2.5 mg NEBULIZER Q4H PRN 08/06/2023 Active documented as of this encounter (statuses as of 02/05/2024) Active Problems Problem Noted Date Diagnosed Date Prediabetes 12/22/2023 Chronic hypoxemic respiratory failure 12/21/2023 Chronic hypoxemic respiratory failure 12/21/2023 Mild cognitive impairment 12/21/2023 Renal artery stenosis 07/17/2023 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, bilateral 07/17/2023 Dysphagia 07/17/2023 Coronary artery disease invo lving cheesh-na coronary artery of cheesh-na heart without angina pectoris 05/29/2023 Age-related osteoporosis [...] 05/15/2017 HTN, goal below 140/90 01/15/2017 Old OK (myocardial infarction) 01/15/2017 Restless legs syndrome 04/06/2016 COPD, group B, by GOLD 2017 classification 08/28 Overview: Unable to classify severity based on 08/20/2014 PFT Gastroesophageal reflux disease without esophagi tis 07/21/2014 Dyslipidemia, goal LDL below 70 07/21/2014 Hiatal hernia documented as of this encounter (statuses as of 02/05/2024) Resolved Problems Problem Noted Date Diagnosed Date [...] as of this encounter (statuses as of 02/05/2024) Immunizations Name Administration Dates Next Due COVID-19 [...] as of this encounter Progress Notes * Marjorie Prabhakar, Formerly [facility] - 02/05/2024 8:31 AM EDT Laura Pagan is a 78 year old female. Objective: Review of patient's allergies indicates: Allergen Reactions Ragweed Current Outpatient Medications - WARNING: List may be incomplete due to filtering Medication Sig Dispense Refill Icosapent Ethyl 1 GM Oral Capsule (Vascepa) TAKE 2 CAPSULES BY MOUTH TWICE DAILY WITH MORNING AND EVENING MEALS. SWALLOW CAPSULES WHOLE. DO NOT OPEN OR BREAK Prevagen Extra Strength 20 MG Oral Capsule (Apoaequorin) Take 1 Capsule by mouth daily. busPIRone HCl 10 MG Oral Tablet (Buspar) Take 1/2 (one-half) tablet by mouth twice daily 90 Tablet 5 Omeprazole 20 MG Oral Capsule Delayed Release (PriLOSEC) Take 2 capsules by mouth once daily 1 hourprior to breakfast 60 Capsule 5 Trelegy Ellipta 200-62.5-25 MCG/ACT Aerosol Powder Breath Activated (Gehqlowfbtl-Fifexwimpsln-Gezbshngvi) INHALE 1 PUFF ONCE DAILY 60 Each 5 amLODIPine Besylate 10 MG Oral Tablet (Norvasc) Take 1 Tablet by mouth in the morning. 90 Tablet 3 Fenofibrate 145 MG Oral Tablet (Tricor) Take 1 tablet by mouth once daily 90 Tablet 0 Sertraline HCl 100 MG Oral Tablet (Zoloft) Take 1 tablet by mouth once daily 90 Tablet 3 Metoprolol Tartrate 25 MG Oral Tablet (Lopressor) Take 1 Tablet by mouth in the morning and 1 Tablet before bedtime. 180 Tablet 3 Mirtazapine 15 MG Oral Tablet (Remeron) TAKE 1 TABLET BY MOUTH AT BEDTIME 90 Tablet 1 Isosorbide Mononitrate ER 30 MG Oral Tablet Extended Release 24 Hour (Imdur) Take 1 tablet by mouthonce daily 90 Tablet 3 Famotidine 20 MG Oral Tablet (Pepcid) Take 1 Tablet by mouth every other day. 45 Tablet 3 Atorvastatin Calcium 40 MG Oral Tablet (Lipitor) Take 1 tablet by mouth once daily 90 Tablet 1 Lisinopril 20 MG Oral Tablet (Prinivil) Take 1 Tablet by mouth in the morning. 90 Tablet 3 Albuterol Sulfate HFA 108 (90 Base) MCG/ACT Inhalation Aerosol Solution Inhale 2 Puffs by mouth every 6 hours as needed for Cough, Shortness of Breath or Wheezing. 18 g 3 Melatonin 10 MG Oral Capsule Take 1 Capsule by mouth at bedtime. Aspirin EC 81 MG Oral Tablet Delayed Release Take 1 Tablet by mouth in the morning. Immunization History Administered Date(s) Administered COVID-19 mRNA, LNP-s, No Preserve, 2-Dose Series (Moderna) 10/25/2020, 11/23/2020, 08/29/2021 Covid-19, Mrna, Lnp-s, Pf, Bivalent, 50 Mcg, IM, 12 yrs and above (Moderna) 10/27/2022 Pneumococcal Conjugate Vacc, 13 Valent (Prevnar) 06/17/2015 Pneumococcal Conjugate Vaccine, 7 Valent 10/27/2022 Pneumococcal Polysaccharide PPV23 (Pneumovax) 08/31/2014 TDAP (age 10 and older)(Boostrix) 07/21/2014 Varicella Zoster Vaccine (Adult) 07/21/2014 Zoster Vaccine Recombinant (Shingrix) 04/17/2020, 06/17/2020 TMR Interventions Incomplete Encounter MTPs No medication therapy recommendations to display Complete Encounter MTPs Referred for management of medication therapy Rationale: Patient Education - Needs Medication Assessment - Adherence Recommendation: Provide Education Status: Accepted - no CPA Needed Note: TMR maintanance inhaler Assessment & Plan Indication, effectiveness, safety and convenience of her medications were reviewed today. The patient's medical conditions were assessed, evaluated, and deemed meeting goals of drug therapy, with thefollowing exceptions. Additional Notes: Patient appears adherent and denies issues Summary Time Spent: 16-30 min Supervising pharmacist who provided the service: Marjorie Prabhakar [employer] Takeaway Information Who was the recipient of the CMR service: beneficiary Language Template for the Patient Takeaway: [place] I attest that I have reviewed and updated the patient's conditions, allergies, and medications to the best of my ability. Patient provided medication list gathered by: Darek Byrnes RPh 02/05/2024, 8:31 AM documented in this encounter Miscellaneous Notes * MTM Personal Medication List - Marjorie Prabhakar RPh - 02/05/2024 8:29 AM EDT Medication How I take it Why I use it Prescriber Albuterol Sulfate HFA 108 (90 Base) MCG/ACT Inhalation Aerosol Solution Inhale 2 Puffs by mouth every 6 hours as needed for Cough, Shortness of Breath or Wheezing. Breathing NEYMAR Lucia amLODIPine Besylate 10 MG Oral Tablet (Norvasc) Take 1 Tablet by mouth in the morning. Blood pressure Phi Kyle DO Aspirin EC 81 MG Oral Tablet Delayed Release Take 1 Tablet by mouth in the morning. Heart self Atorvastatin Calcium 40 MG Oral Tablet (Lipitor) Take 1 tablet by mouth once daily Cholesterol Phi Kyle DO busPIRone HCl 10 MG Oral Tablet (Buspar) Take 1/2 (one-half) tablet by mouth twice daily mood Phi Kyle DO Famotidine 20 MG Oral Tablet (Pepcid) Take 1 Tablet by mouth every other day. Heartburn Phi Kyle DO Fenofibrate 145 MG Oral Tablet (Tricor) Take 1 tablet by mouth once daily Cholesterol Phi Kyle DO Icosapent Ethyl 1 GM Oral Capsule (Vascepa) TAKE 2 CAPSULES BY MOUTH TWICE DAILY WITH MORNING AND EVENING MEALS. SWALLOW CAPSULES WHOLE. DO NOT OPEN OR BREAK Cholesterol Phi Kyle DO Isosorbide Mononitrate ER 30 MG Oral Tablet Extended Release 24 Hour (Imdur) Take 1 tablet by mouthonce daily Heart Phi Kyle DO Lisinopril 20 MG Oral Tablet (Prinivil) Take 1 Tablet by mouth in the morning. Blood pressure Phi Kyle DO Melatonin 10 MG Oral Capsule Take 1 Capsule by mouth at bedtime. sleep self Metoprolol Tartrate 25 MG Oral Tablet (Lopressor) Take 1 Tablet by mouth in the morning and 1 Tablet before bedtime. heart Phi Kyle DO Mirtazapine 15 MG Oral Tablet (Remeron) TAKE 1 TABLET BY MOUTH AT BEDTIME sleep Phi Kyle DO Omeprazole 20 MG Oral Capsule Delayed Release (PriLOSEC) Take 2 capsules by mouth once daily 1 hourprior to breakfast heartburn Phi Kyle DO Prevagen Extra Strength 20 MG Oral Capsule (Apoaequorin) Take 1 Capsule by mouth daily. General health self Sertraline HCl 100 MG Oral Tablet (Zoloft) Take 1 tablet by mouth once daily mood Phi Kyle DO Trelegy Ellipta 200-62.5-25 MCG/ACT Aerosol Powder Breath Activated (Unyibltuquz-Bmhpfllzxvfs-Fwctyzquxf) INHALE 1 PUFF ONCE DAILY breathing Phi Kyle DO * MTM To-Do-List - Marjorie Prabhakar RP - 02/05/2024 8:28 AM EDT Images from the original note were not included. What we talked about: What I should do: The importance of taking your medication as prescribed Your medicine works best when taken as prescribed. It can be hard to remember to take daily medications. Consider making it a part of your daily routine. Pair taking your medication with something you do every day, like brushing your teeth or eating a meal. Consider setting daily alarms to help remind yourself when it is time to take your medicine. Using a pill box can also help you organize your medicines. Pill boxes allow you to fill each day slot with your daily medicine and help you track when your next dose is due. What we talked about: What I should do: [facility] You can get a 90 day supply of your prescription medications delivered to your home. You also can be signed up for automatic refills. Typically, patients who switch to mail order save money on their monthly prescriptions. You will have access to a pharmacist to answer any questions about your medications (Sunday- Sunday, 6:30 am to 7 pm). Call [phone] to enroll in mail order services today. What we talked about: What I should do: Your trelegy Your inhaler trelegy could put you at an increase risk for throat irritation or even throat fungal infections (called thrush). An easy way to keep your throat healthy is swishing and spitting with water after each use. documented in this encounter Plan of Treatment Upcoming Encounters Date Type Department Care Team (Late st Contact Info) Description 03/28/2024 2:20 PM EDT Office Visit Family Practice [address] [place] [address] [place] [address] Phi Kyle DO [address] [place] [address] 05/29/2024 2:00 PM EDT Nurse Only Ancillary [address] [place] [address] Martha, Nurse Annual Wellness Visit [address] [place] [address] Health Maintenance Due Date Last Done Comments *BISPHONATE OR OTHER ACCEPTABLE MEDICATION NEEDED FOR OSTEOPOROSIS (REFER TO SMARTSET #1146) 10/09/2022 COVID-19 Vaccine ( season) 2023 10/27/2022, 08/29/2021, 11/23/2020, Additional history exists DISCUSS TOBACCO CESSATION (REFER TO SMARTSET #3291) 09/22/2023 09/22/2022, 07/29/2021, 05/17/2021 CKD PHOS USE SMARTSET 46832 10/12/202309/18, 08/21/2020, 01/10/2019 DXA Scan 12/21/2023 12/20/2021, 12/20/2021 *NEPHROLOGY REFERRAL DUE TO RESISTANT HTN 01/18/2024 GFR 05/13/2024 11/13/2023, 07/19, 06/28/2023, Additional history exists Influenza Vaccine (FLU shot) (Season Ended) 2024 Albumin/Creatinine Ratio 07/17/2024 07/17/2023, 09/18 Depression Screening 07/17/2024 07/17/2023 DTaP,Tdap,and Td Vaccines (2 - Td or Tdap) 07/21/2024 07/21/2014 HbA1c 08/13/2024 08/13/2023 CKD HGB USE SMARTSET 41917 11/13/202411/13, 11/13/2023, 08/13/2023, Additional history exists O2 ASSESSMENT COMPLETED IN PAST YEAR FOR COPD 12/20/2024 12/21/2023 Alpha-1 Antitrypsin Completed 03/23/2017 VITAMIN D LEVEL ONCE IN A LIFETIME-USE SMARTSET# [id number] Completed 08/14/2018, 05/19/2016, 07/31/2014 Zoster Vaccines Completed [...] as of this encounter Visit Diagnoses Diagnosis Referred for management of medication therapy- Primary Encounter for long-term (current) use of other medications documented in this encounter Care Teams Gasoline Power Shovel Operator Relationship Specialty Start Date End Date Phi Kyle DO [address] [place] [address] PCP - General Family Medicine 08/16/23 documented as of this encounter
--- OUTSIDE RECORDS SUMMARY | 2024-06-04 09:56 | External Medical Summary | Summary of Care ---
Author Name Unknown Organization [facility] Address [address] [facility] [place] [address] Phone [phone] Care Team Providers Care Terrazzo Installer Name Role Phone Phi Kyle DO Primary Care Provider [phone] Reason for Referral * Evaluate & Treat - Unlimited Visits (Within 10 days (routine)) - Authorized Specialty Diagnoses / Procedures Referred By Mary Kay lu Referred To Contact Psychiatry / Psychology Diagnoses Mild cognitive impairment Phi Kyle DO [address] [place] [address] Referral ID Status Reason Start Date Expiration Date Visits Requested Visits Authorized [id number] Authorized Specialty Services Required 12/21/2023 999 999 [...] Visit Family Practice [address], Martha [address] [place] [address] Phi Kyle DO [address] [place] [address] Hypertensive kidney disease with stage 3b chronic kidney disease (HCC)*; Coronary artery disease involving benton coronary artery of benton heart without angina pectoris; Dyslipidemia, goal LDL below 70; Prediabetes; COPD, group B, by GOLD 2017 classification ([facility]); Multiple lung nodules; Chronic hypoxemic respiratory failure (HCC); 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); Abdominal aortic aneurysm (AAA) without rupture, unspecified part (HCC); Mild cognitive impairment; Gastroesophageal reflux disease without esophagitis; Lumbar degenerative disc disease; Tobacco use disorder; DEVAN (generalized anxiety disorder) Allergies Active Allergy Reactions Criticality Noted Date Comments Ragweed 07/21/2014 documented as of this encounter (statuses as of 12/24/2023) Medications Medication Sig Dispensed Refills Start Date [...] s:COPD, group B, by GOLD 2017 classification ([facility]) Inhale 2 Puffs by mouth every 6 [...] )Indications:COPD, group B, by GOLD 2017 classification ([facility]) Inhale 1 Puff by mouth daily. 60 [...] once daily 90 Tablet 0 4 Active Varenicline Tartrate 0.5 MG [...] Up) amLODIPine Besylate 5 MG Oral Tablet (Norvasc)Indicatio ns:Hypertensive kidney disease with stage 3b chronic kidney disease (HCC) Take 2 Tablets by mouth in the morning. 0 4 12/24/19 24 Discontinued(Med ication/Dose Changed) Hospital, Clinic, or Other Facility Administered Medication Ordered Dose Route Frequency Start Date End Date Status Albuterol Sulfate (Proventil) (2.5 MG/3ML) 0.083% inhalation solution 2.5 mgIndications:COPD, group B, by GOLD 2017 classification ([facility]) 2.5 mg NEBULIZER PRN 06/30/2023 06/29/2024 Acti [...] as of this encounter (statuses as of 12/24/2023) Active Problems Problem Noted Date Diagnosed Date Prediabetes 12/22/2023 Chronic hypoxemic respiratory failure 12/21/2023 Chronic hypoxemic respiratory failure 12/21/2023 Mild cognitive impairment 12/21/2023 Renal artery stenosis 07/17/2023 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, bilateral 07/17/2023 Dysphagia 07/17/2023 Coronary artery disease invo lving benton coronary artery of benton heart without angina pectoris 05/29/2023 Age-related osteoporosis [...] as of this encounter (statuses as of 12/24/2023) Resolved Problems Problem Noted Date Diagnosed Date [...] as of this encounter (statuses as of 12/24/2023) Immunizations Name Administration Dates Next Due COVID-19 [...] FITNESS PT ENTERED Coronary artery disease involving benton coronary artery of benton heart without angina pectoris Stable Continue present [...] group B, by GOLD 2017 classification ([facility]) Stable Continue present medication Trelegy Ellipta 200-62.5-25 [...] Description 12/31/2023 10:30 AM EDT Imaging Radiology, [address] [place] [address] 01/04/2024 2:30 PM EDT Nurse Only Family Practice [address] [facility] [address] [place] [address] Nurse Martha Fam Prac [address] [place] [address] 01/14/2024 10:20 AM EDT Office Visit Rheumatology [address] [place] [address] Elías Funes MD [address] [place] [address] [place] [address] 03/28/2024 2:20 PM EDT Office Visit Family Practice [address] [place] [address] [place] [address] Phi Kyle DO [address] [place] [address] 05/29/2024 2:00 PM EDT Nurse Only Ancillary [address] [place] [address] [place] [address] Nurse Martha Annual Wellness Visit [address] [place] [address] Scheduled Referrals Name Type Priority Associated Diagnoses [...] 09/22/2022, 07/29/2021, 05/17/2021 CKD PHOS USE SMARTSET 72737 10/12/202309/18, 08/21/2020, 01/10/2019 DXA Scan 12/21/2023 12/20/2021, 12/20/2021 GFR 05/13/2024 11/13/2023, 07/19, 06/28/2023, Additional history exists Influenza Vaccine (FLU shot) (Season Ended) 2024 Albumin/Creatinine Ratio 07/17/2024 07/17/2023, 09/18 Depression Screening 07/17/2024 07/17/2023 DTaP,Tdap,and Td Vaccines (2 - Td or Tdap) 07/21/2024 07/21/2014 HbA1c 08/13/2024 08/13/2023 CKD HGB USE SMARTSET 46388 11/13/202411/13, 11/13/2023, 08/13/2023, Additional history exists O2 ASSESSMENT COMPLETED IN PAST YEAR FOR COPD 12/20/2024 12/21/2023 Alpha-1 Antitrypsin Completed 03/23/2017 VITAMIN D LEVEL ONCE IN A LIFETIME-USE SMARTSET# [id number] Completed 08/14/2018, 05/19/2016, 07/31/2014 Zoster Vaccines Completed 06/17/2020, 11/2019, 04/17/2020, Additional history exists Cologuard Discontinued 10/20/2021, 09/18, 10/13/2021, Additional history exists Colorectal Cancer Screening Discontinued Pneumococcal Vaccine: 65+ Years Completed 10/27/2022, 06/17/2015, 08/31/2014 LUNG CANCER SCREENING - USE SMARTSET [id number] Completed 09/06/2023, 08/15/2022, 07/18/2021, Additional history exists [...] disease (HCC)- Primary Coronary artery disease involving benton coronary artery of benton heart without angina pectoris Dyslipidemia, goal LDL [...] disorder documented in this encounter Care Teams Terrazzo Installer Relationship Specialty Start Date End Date Phi Kyle DO [address] [place] [address] PCP - General Family Medicine 08/16/23 documented as of this encounter"
--- OUTSIDE RECORDS SUMMARY | 2024-06-04 09:56 | External Medical Summary | Summary of Care ---
Author Name Unknown Organization [facility] Address [address] [facility] [place] [address] Phone [phone] Care Team Providers Care Research Biostatistician Name Role Phone Phi Kyle DO Primary Care Provider [phone] Reason for Visit * Reason Comments eRx-Medication Refill Encounter Details Date Type Department Care Team (Late st Contact Info) Description 01/01/2024 Refill Family Practice [address] [facility] [place] [address] [place] [address] Phi Kyle DO [address] [place] [address] COPD, group B, by GOLD 2017 classification ([facility]); Acute gastric ulcer, unspecified whether gastric ulcer hemorrhage or perforation present Allergies Active Allergy Reactions Criticality Noted Date Comments Ragweed 07/21/2014 documented as of this encounter (statuses as of 01/03/2024) Medications Medication Sig Dispensed Refills Start Date [...] s:COPD, group B, by GOLD 2017 classification ([facility]) Inhale 2 Puffs by mouth every 6 hours as needed for Cough, Shortness of Breath or Wheezing. 18 g 3 3 Active Lisinopril 20 MG Oral Tablet (Prinivil)Indicati ons:Hypertensive kidney disease with stage 3b chronic kidney disease ([facility]) Take 1 Tablet by mouth in the morning. 90 Tablet 3 3 Active Atorvastatin Calcium 40 MG Oral [...] Hour (Imdur)Indications :NSTEMI (non-ST elevated myocardial infarction) ([facility]) Take 1 tablet by mouth once daily 90 Tablet 3 3 Active Mirtazapine 15 MG Oral Tablet (Remeron) TAKE 1 TABLET BY MOUTH AT BEDTIME 90 Tablet 1 3 Active Metoprolol Tartrate 25 MG Oral Tablet (Lopressor)Indicat ions:NSTEMI (non-ST elevated myocardial infarction) ([facility]) Take 1 Tablet by mouth in the morning and 1 Tablet before bedtime. 180 Tablet 3 4 Active Sertraline HCl 100 MG Oral Tablet (Zoloft)Indication s:Anxiety Take 1 tablet by mouth once daily 90 Tablet 3 4 Active Fenofibrate 145 MG Oral Tablet (Tricor)Indication s:Hypertriglycerid emia Take 1 tablet by mouth once daily 90 Tablet 0 4 Active amLODIPine Besylate 10 MG Oral Tablet (Norvasc)Indicatio ns:HTN, goal below 140/90 Take 1 Tablet by mouth in the morning. 90 Tablet 3 4 Active busPIRone HCl 10 MG Oral Tablet (Buspar) Take 1/2 (one-half) tablet by mouth twice daily 90 Tablet 5 4 Active Trelegy Ellipta 200-62.5-25 MCG/ACT Aerosol Powder Breath Activated (Fluticasone-Umecl idinium-Vilanterol )Indications:COPD, group B, by GOLD 2017 classification ([facility]) INHALE 1 PUFF ONCE DAILY 60 Each 5 4 Active Omeprazole 20 MG Oral Capsule Delayed Release (PriLOSEC)Indicati ons:Acute gastric ulcer, unspecified whether gastric ulcer hemorrhage or perforation present Take 2 capsules by mouth once daily 1 hour prior to breakfast 60 Capsule 5 4 Active Trelegy Ellipta 200-62.5-25 MCG/ACT Aerosol Powder Breath Activated (Fluticasone-Umecl idinium-Vilanterol )Indications:COPD, group B, by GOLD 2017 classification ([facility]) Inhale 1 Puff by mouth daily. 60 Blister Dosing Unit 5 3 01/02/20 24 Discontinued busPIRone HCl 10 MG Oral Tablet (Buspar) Take 1/2 (one-half) tablet by mouth twice daily 90 Tablet 0 3 01/03/20 24 Discontinued Omeprazole 20 MG Oral Capsule Delayed Release (PriLOSEC)Indicati ons:Acute gastric ulcer, unspecified whether gastric ulcer hemorrhage or perforation present Take 2 capsules by mouth once daily 1 hour prior to breakfast 60 Capsule 0 4 01/02/20 24 Discontinued(Ref ill) Hospital, Clinic, or Other Facility Administered Medication Ordered Dose Route Frequency Start Date End Date Status Albuterol Sulfate (Proventil) (2.5 MG/3ML) 0.083% inhalation solution 2.5 mgIndications:COPD, group B, by GOLD 2017 classification ([facility]) 2.5 mg NEBULIZER PRN 06/30/2023 06/29/2024 Acti ve Albuterol Sulfate (Proventil) (5 MG/ML) 0.5% *conc* inhalation solution 2.5 mgIndications:COPD, group B, by GOLD 2017 classification ([facility]) 2.5 mg NEBULIZER PRN 06/30/2023 06/29/2024 Acti ve Albuterol Sulfate (Proventil) (2.5 MG/3ML) 0.083% inhalation solution 2.5 mgIndications:COPD (chronic obstructive pulmonary disease) with chronic bronchitis (HCC) 2.5 mg NEBULIZER Q4H PRN 08/06/2023 Active documented as of this encounter (statuses as of 01/03/2024) Active Problems Problem Noted Date Diagnosed Date Prediabetes 12/22/2023 Chronic hypoxemic respiratory failure 12/21/2023 Chronic hypoxemic respiratory failure 12/21/2023 Mild cognitive impairment 12/21/2023 Renal artery stenosis 07/17/2023 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, bilateral 07/17/2023 Dysphagia 07/17/2023 Coronary artery disease invo lving tribe coronary artery of tribe heart without angina pectoris 05/29/2023 Age-related [...] as of this encounter (statuses as of 01/03/2024) Resolved Problems Problem Noted Date Diagnosed Date [...] as of this encounter (statuses as of 01/03/2024) Immunizations Name Administration Dates Next Due COVID-19 [...] encounter Miscellaneous Notes * Telephone Encounter - Phi Kyle DO - 01/03/2024 9:57 AM EDTSigned Prescriptions: Disp Refills busPIRone HCl 10 MG Oral Tablet (Buspar) 90 Tab*5 Sig: Take 1/2 (one-half) tablet by mouth twice daily Authorizing Provider: PHI KYLE Ellipta 200-62.5-25 MCG/ACT Aeroso*60 Each5 Sig: INHALE 1 PUFF ONCE DAILY Authorizing Provider: PHI KYLE Ordering User: JAYE MAR Omeprazole 20 MG Oral Capsule Delayed Rele* 60 Cap*5 Sig: Take 2 capsules by mouth once daily 1 hour prior to breakfast Authorizing Provider: PHI KYLE Ordering User: DURA, JAYE * Telephone Encounter - Vickie Lyman [facility] - 01/02/2024 7:40 PM EDTPending Prescriptions: Disp Refills busPIRone HCl 10 MG Oral Tablet (Buspar) 90 Tab*5 Sig: Take 1/2 (one-half) tablet by mouth twice daily Signed Prescriptions: Disp Refills Trelegy Ellipta 200-62.5-25 MCG/ACT Aeroso*60 Each5 Sig: INHALE 1 PUFF ONCE DAILY Authorizing Provider: PHI KYLE Ordering User: JAYE MAR Omeprazole 20 MG Or al Capsule Delayed Rele*60 Cap*5 Sig: Take 2 capsules by mouth once daily 1 hour prior to breakfast Authorizing Provider: PHI KYLE Ordering User: ISABELA JAYE * Telephone Encounter - Jaye Mar [facility] - 01/02/2024 3:28 PM EDTPending Prescriptions: Disp Refills busPIRone HCl 10 MG Oral Tablet (Buspar) 90 Tab*5 Sig: Take 1/2 (one-half) tablet by mouth twice daily Signed Prescriptions: Disp Refills Trelegy Ellipta 200-62.5-25 MCG/ACT Aeroso*60 Each5 Sig: INHALE 1 PUFF ONCE DAILY Authorizing Provider: PHI KYLE Ordering User: ISABELA JAYE Omeprazole 20 MG Or al Capsule Delayed Rele*60 Cap*5 Sig: Take 2 capsules by mouth once daily 1 hour prior to breakfast Authorizing Provider: PHI KYLE Ordering User: JAYE MAR * Telephone Encounter - Jaye Mar RP - 01/02/2024 3:28 PM EDT [facility] is currently not authorized to approve refills for the pended medication(s) per refill protocol. Please approve if appropriate. Thanks, Jaye Mar PharmD Clinical Pharmacist Centralized Clinical Pharmacy Services ([facility]) [phone] 01/02/2024, 3:28 PM * Telephone Encounter - Toña Marinelli PHARM Tech - 01/02/2024 12:01 PM EDT Did you pend patient's preferred pharmacy and medication before forwarding?yes Pharmacy: [facility] [address] [facility] Pending Prescriptions: Disp Refills busPIRone HCl 10 MG Oral Tablet (Buspar) *90 Tab*0 Sig: Take 1/2 (one-half) tablet by mouth twice daily Trelegy Ellipta 200-62.5-25 MCG/ACT Aeros*60 Each0 Sig: INHALE 1 PUFF ONCE DAILY Omeprazole 20 MG Oral Capsule Delayed Rel*60 Cap*0 Sig: Take 2 capsules by mouth once daily 1 hour prior to breakfast Last Visit: 06/28/2023 (in office), Visit date not found (telemedicine) Next Visit: Visit date not found If no future appointments scheduled, and last appointment is greater than a year ago, please schedule patient for a follow-up appointment Last date the medication was ordered: 10/31 05/29 Is this request for a controlled substance?No [...] Care Team (Late st Contact Info) Description 01/04/2024 2:30 PM EDT Nurse Only Family Practice [address] [place], [place] [address]Martha [address] [place] [address] Nurse Martha [facility] [address] [place] [address] 01/14/2024 10:20 AM EDT Office Visit Rheumatology [place] [address] [address] [place] [address] Elías Funes MD [facility] [employer] [place] [address] 03/28/2024 2:20 PM EDT Office Visit Family Practice [address] [address] [place] [address] Phi Kyle DO [address] [place] [address] 05/29/2024 2:00 PM EDT Nurse Only Ancillary [address] Martha [address] [place] [address] Martha Nurse Annual Wellness Visit [address] [place] [address] Health Maintenance Due Date Last Done Comments *BISPHONATE OR OTHER ACCEPTABLE MEDICATION NEEDED FOR OSTEOPOROSIS (REFER TO SMARTSET #1146) 10/09/2022 COVID-19 Vaccine ( season) 2023 10/27/2022, 08/29/2021, 11/23/2020, Additional history exists DISCUSS TOBACCO CESSATION (REFER TO SMARTSET #3291) 09/22/2023 09/22/2022, 07/29/2021, 05/17/2021 CKD PHOS USE SMARTSET 75987 10/12/202309/18, 08/21/2020, 01/10/2019 DXA Scan 12/21/2023 12/20/2021, 12/20/2021 GFR 05/13/2024 11/13/2023, 07/19, 06/28/2023, Additional history exists Influenza Vaccine (FLU shot) (Season Ended) 2024 Albumin/Creatinine Ratio 07/17/2024 07/17/2023, 09/18 Depression Screening 07/17/2024 07/17/2023 DTaP,Tdap,and Td Vaccines (2 - Td or Tdap) 07/21/2024 07/21/2014 HbA1c 08/13/2024 08/13/2023 CKD HGB USE SMARTSET 33476 11/13/202411/13, 11/13/2023, 08/13/2023, Additional history exists O2 ASSESSMENT COMPLETED IN PAST YEAR FOR COPD 12/20/2024 12/21/2023 Alpha-1 Antitrypsin Completed 03/23/2017 VITAMIN D LEVEL ONCE IN A LIFETIME-USE SMARTSET# 37656 Completed 08/14/2018, 05/19/2016, 07/31/2014 Zoster Vaccines Completed [...] group B, by GOLD 2017 classification (HCC) Acute gastric ulcer, unspecified whether gastric ulcer hemorrhage or perforation present documented in this encounter Care Teams Research Biostatistician Relationship Specialty Start Date End Date Phi Kyle DO [address] [place] [address] PCP - General Family Medicine 08/16/23 documented as of this encounter
--- OUTSIDE RECORDS SUMMARY | 2024-06-04 09:56 | External Medical Summary | Summary of Care ---
Author Name Unknown Organization [facility] Address [address] [place] [address] Phone [phone] Care Team Providers Care Vending Supervisor Name Role Phone AnabellaPhi armstrong Primary Care Provider [phone] Reason for Referral * Evaluate & Treat - Unlimited Visits (Within 3 days (urgent)) - Authorized Specialty Diagnoses / Procedures Referred By Contmynor t Referred To Contact Pulmonary Diseases / Pulmonary Diagnoses Solitary pulmonary nodule Bean Howard MD [address] [place] [address] Referral ID Status Reason Start Date Expiration Date Visits Requested Visits Authorized [id number] Authorized Specialty Services Required 3 [phone] Question Answer Referral Priority Within 3 Days (Urgent) Primary Reason for Referral? Lung Nodule/Mass Reason for Visit * Reason Onset Date Comments STAIR Lung Nodule 09/12/2023 Encounter Details Date Type Department Care Team (Late st Contact Info) Description 09/12/2023 Telephone STAIR LUNG NODULE [address] [place] [address] Program, Stair [address] [place] [address] STAIR Lung Nodule Allergies Active Allergy Reactions Criticality Noted Date Comments Ragweed 07/21/2014 documented as of this encounter (statuses as of 12/09/2023) Medications Medication Sig Dispensed Refills Start Date [...] directed on box. 42 Tablet 0 2 Active Additional Information Patient not taking.Reported on 12/05/2023 FeroSul 325 (65 Fe) MG Oral Tablet (Ferrous Sulfate)Indication s:Iron deficiency anemia due to chronic blood loss TAKE 1 TABLET BY MOUTH THREE TIMES DAILY WITH MEALS 90 Tablet 0 3 Active Albuterol Sulfate HFA 108 (90 Base) [...] 2017 classification ([facility]) Inhale 1 Puff by mouth daily. 60 Blister Dosing Unit 5 3 Active Atorvastatin Calcium 40 MG Oral Tablet (Lipitor)Indicatio ns:Dyslipidemia, goal LDL below 160 Take 1 tablet by mouth once daily 90 Tablet 1 3 Active Ondansetron HCl 4 MG Oral Tablet (Zofran)Indication s:Nausea and vomiting, unspecified vomiting type TAKE 1 TABLET BY MOUTH EVERY 6 HOURS NEEDED FOR NAUSEA FOR VOMITING 30 Tablet 3 3 Active Additional Information Patient not taking.Reported on 12/05/2023 Amoxicillin-Pot Clavulanate 875-125 MG Oral Tablet (Augmentin) Take 1 Tablet by mouth in the morning and 1 Tablet before bedtime. 0 Active amLODIPine Besylate 5 MG Oral Tablet (Norvasc) Take 1 Tablet by mouth in the morning. 0 Active predniSONE 20 MG Oral Tablet (Deltasone)Indicat ions:COPD exacerbation (HCC) Take 4 tabs daily for 2 days, 3 tabs daily for 2 days, 2 tabs daily for 2 days, 1 tab daily for 2 days 20 Tablet 0 3 Active Additional Information Patient not taking.Reported on 12/05/2023 Ipratropium-Albute rol 0.5-2.5 (3) MG/3ML Inhalation Solution (Duoneb)Indication s:COPD exacerbation (HCC) Inhale 3 mL by mouth every 6 hours as needed for Shortness of Breath, Cough or Wheezing. 360 mL 2 3 Active Additional Information Patient not taking.Reported on 12/05/2023 Famotidine 20 MG Oral Tablet (Pepcid)Indication s:Gastroesophageal [...] AT BEDTIME 90 Tablet 1 3 Active Icosapent Ethyl 1 GM Oral Capsule (Vascepa) Take 2 Capsules by mouth 2 times a day with morning and evening meals. Swallow capsules whole, do not open or break. 120 Capsule 5 3 Active Additional Information Patient not taking.Reported on 12/05/2023 Metoprolol Tartrate 25 MG Oral Tablet (Lopressor)Indicat ions:NSTEMI (non-ST elevated myocardial infarction) (HCC) Take 1 tablet by mouth twice daily 180 Tablet 3 2 024 Discontinued(Re fill) Sertraline HCl 100 MG Oral Tablet (Zoloft)Indication s:Anxiety Take 1 tablet by mouth once daily 90 Tablet 2 3 024 Discontinued Omeprazole 20 MG Oral Capsule Delayed Release (PriLOSEC)Indicati ons:Acute gastric ulcer, unspecified whether gastric ulcer hemorrhage or perforation present TAKE 2 CAPSULES BY MOUTH ONCE DAILY 1 HOUR BEFORE THE FIRST MEAL OF THE DAY 60 Capsule 5 3 024 Discontinued Fenofibrate 145 MG Oral Tablet (Tricor)Indication s:Hypertriglycerid emia Take 1 tablet by mouth once daily 90 Tablet 0 3 024 Discontinued Hospital, Clinic, or Other Facility Administered [...] (chronic obstructive pulmonary disease) with chronic bronchitis 2.5 mg NEBULIZER Q4H PRN 08/06/2023 Active documented as of this encounter (statuses as of 12/09/2023) Active Problems Problem Noted Date Diagnosed Date Renal artery stenosis 07/17/2023 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, bilateral 07/17/2023 Dysphagia 07/17/2023 Coronary artery disease invo lving [place] coronary artery of [place] heart without angina pectoris 05/29/2023 Major depressive [...] 05/15/2017 HTN, goal below 130/80 01/15/2017 Old PA (myocardial infarction) 01/15/2017 Restless legs syndrome 04/06/2016 COPD, group B, by GOLD 2017 classification 08/28 Overview: Unable to classify severity based on 08/20/2014 PFT Gastroesophageal reflux disease without esophagi tis 07/21/2014 Dyslipidemia 07/21/2014 Hiatal hernia documented as of this encounter (statuses as of 12/09/2023) Resolved Problems Problem Noted Date Diagnosed Date [...] as of this encounter (statuses as of 12/09/2023) Immunizations Name Administration Dates Next Due COVID-19 [...] Day Cigarettes 1 50 Smokeless Tobacco: Never Comments:07/03/23 1 pack sandeep ly, declined pamphlet Alcohol Use Standard Drinks/Week Comments [...] encounter Miscellaneous Notes * Telephone Encounter - Hannah Crooks LPN - 12/09/2023 10:11 AM EDT Patient managed in STAIR Program for Pulmonary Nodule - banner added * Telephone Encounter - Hannah Crooks LPN - 09/12/2023 1:56 PM EST Images requested from [facility] * Telephone Encounter - Merly Peters RN - 09/12/2023 8:57 AM EST Lung Cancer Screening Program ([facility]) Results Call Summary 09/12/2023 LDCT results reviewed with patient No outside imaging Smoking reviewed (1ppd) Referral placed to STAIR Low Dose CT Lung-RADS Scoring: Lung-RADS Score 4A (suspicious) - care transferred to STAIR program for clinical review, setting care plan, and tracking. (STAIR Team: Patient Identified by Lung Cancer Screening Program. If CT Scan needed, order CT Chest Lung Cancer Screen 3 or 6 Month Follow Up). I have contacted the patient to review the low dose CT results, discuss next steps per Lung Cancer Screening Program Protocol, and address any questions. Merly Peters RN Lung Cancer Screening Vocational Technical Education Teacher [phone] ([phone]) documented in this encounter Plan of Treatment Upcoming Encounters Date Type Department Care Team (Late st Contact Info) Description 12/21/2023 2:20 PM EDT Office Visit [address] [place] [address] Phi Kyle DO [address] [place] [address] 12/31/2023 10:30 AM EDT Imaging Radiology, [address] [place] [address] 01/14/2024 10:20 AM EDT Office Visit Rheumatology [place] [address] [facility] [place] [address] Elías Funes MD [address] [place] [address] [place] [address] Scheduled Referrals Name Type Priority Associated Diagnoses Order Schedule STAIR LUNG NODULE REFERRAL OP (SYSTEM FOR TRACKING ABNORMALITIES OF IMPORTANCE RELIABLY) Referral Within 3 days (urgent) Solitary pulmonary nodule Ordered: 09/12/2023 Health Maintenance Due Date Last Done Comments *BISPHONATE OR OTHER ACCEPTABLE MEDICATION NEEDED FOR OSTEOPOROSIS (REFER TO SMARTSET #1146) 10/09/2022 COVID-19 Vaccine ( season) 2023 10/27/2022, 08/29/2021, 11/23/2020, Additional history exists Influenza Vaccine (FLU shot) (#1) 2023 DISCUSS TOBACCO CESSATION (REFER TO SMARTSET #3291) 09/22/2023 09/22/2022, 07/29/2021, 05/17/2021 CKD PHOS USE SMARTSET 63304 10/12/202309/18, 08/21/2020, 01/10/2019 DXA Scan 12/21/2023 12/20/2021, 12/20/2021 GFR 05/13/2024 11/13/2023, 07/19, 06/28/2023, Additional history exists Albumin/Creatinine Ratio 07/17/2024 07/17/2023, 09/18 Depression Screening 07/17/2024 07/17/2023 DTaP,Tdap,and Td Vaccines (2 - Td or Tdap) 07/21/2024 07/21/2014 O2 ASSESSMENT COMPLETED IN PAST YEAR FOR COPD 08/16/2024 08/16/2023 CKD HGB USE SMARTSET 13275 11/13/202411/13, 11/13/2023, 08/13/2023, Additional history exists Alpha-1 Antitrypsin Completed 03/23/2017 VITAMIN D LEVEL ONCE IN A LIFETIME-USE SMARTSET# 22097 Completed 08/14/2018, 05/19/2016, 07/31/2014 Zoster Vaccines Completed 06/17/2020, 11/2019, 04/17/2020, Additional history exists Cologuard Discontinued 10/20/2021, 09/18, 10/13/2021, Additional history exists Colorectal Cancer Screening Discontinued Pneumococcal Vaccine: 65+ Years Completed 10/27/2022, 06/17/2015, 08/31/2014 LUNG CANCER SCREENING - USE SMARTSET 00030 Completed 09/06/2023, 08/15/2022, 07/18/2021, Additional history exists [...] as of this encounter Visit Diagnoses Diagnosis Solitary pulmonary nodule- Primary documented in this encounter Care Teams Vending Supervisor Relationship Specialty Start Date End Date Phi Kyle DO [address] [place] [id number] PCP - General Family Medicine 08/16/23 documented as of this encounter
--- OUTSIDE RECORDS SUMMARY | 2024-06-04 09:56 | External Medical Summary | Summary of Care ---
Author Name Unknown Organization [facility] Address [address] [facility] [place] [address] Phone [phone] Care Team Providers Care Machine Turner Name Role Phone Phi Kyle DO Primary Care Provider [phone] Reason for Visit * Reason Onset Date Comments Medication Refill 12/24/2023 Encounter Details Date Type Department Care Team (Late st Contact Info) Description 12/24/2023 Telephone Family Practice [facility], [place] [address] [place] [address] Phi Kyle DO [address] [place] [id number] Medication Refill Allergies Active Allergy Reactions Criticality Noted Date [...] :COPD, group B, by GOLD 2017 classification ([facility]) Inhale 2 Puffs by mouth every 6 hours as needed for Cough, Shortness of Breath or Wheezing. 18 g 3 05/15/2023 Active Lisinopril 20 MG Oral Tablet (Prinivil)Indicatio ns:Hypertensive kidney disease with stage 3b chronic kidney disease ([facility]) Take 1 Tablet by mouth in the morning. 90 Tablet 3 05/29/2023 Active Trelegy Ellipta 200-62.5-25 MCG/ACT Aerosol Powder Breath Activated (Fluticasone-Umecli dinium-Vilanterol)I ndications:COPD, group B, by GOLD 2017 classification ([facility]) Inhale 1 Puff by mouth daily. 60 Blister Dosing Unit 5 05/29/2023 Active Atorvastatin Calcium 40 MG Oral Tablet (Lipitor)Indication s:Dyslipidemia, goal LDL below 160 Take 1 tablet by mouth once daily 90 Tablet 1 06/26/2023 Active Famotidine 20 MG Oral Tablet (Pepcid)Indications :Gastroesophageal reflux disease without esophagitis Take 1 Tablet by mouth every other day. 45 Tablet 3 08/06/2023 Active Isosorbide Mononitrate ER 30 MG Oral Tablet Extended Release 24 Hour (Imdur)Indications: NSTEMI (non-ST elevated myocardial infarction) ([facility]) Take 1 tablet by mouth [...] Tablet (Lopressor)Indicati ons:NSTEMI (non-ST elevated myocardial infarction) ([facility]) Take 1 Tablet by mouth [...] 10/31/2023 Active Fenofibrate 145 MG Oral Tablet (Tricor)Indications :Hypertriglyceridem ia Take 1 tablet by mouth once daily 90 Tablet 0 11/27/2023 Active amLODIPine Besylate 10 MG Oral Tablet (Norvasc)Indication s:HTN, goal below 140/90 Take 1 Tablet by mouth in the morning. 90 Tablet 3 12/24/2023 Active amLODIPine Besylate 5 MG Oral Tablet (Norvasc)Indication s:Hypertensive kidney disease with stage 3b chronic kidney disease (HCC) Take 2 Tablets by mouth in the morning. 0 12/21/2023 Discontinue d(Medicatio n/Dose Changed) Hospital, Clinic, or Other Facility Administered Medication Ordered Dose Route Frequency Start Date End Date Status Albuterol Sulfate (Proventil) (2.5 MG/3ML) 0.083% inhalation solution 2.5 mgIndications:COPD, group B, by GOLD 2017 classification ([facility]) 2.5 mg NEBULIZER PRN 06/30/2023 06/29/2024 Acti ve Albuterol Sulfate (Proventil) (5 MG/ML) 0.5% *conc* inhalation solution 2.5 mgIndications:COPD, group B, by GOLD 2017 classification ([facility]) 2.5 mg NEBULIZER PRN 06/30/2023 [...] Dysphagia 07/17/2023 Coronary artery disease invo lving [place] coronary artery of [place] heart without angina pectoris 05/29/2023 Age-related osteoporosis [...] 05/15/2017 HTN, goal below 140/90 01/15/2017 Old [place] (myocardial infarction) 01/15/2017 Restless legs syndrome 04/06/2016 [...] 52 Smokeless Tobacco: Never Comments:12/05/2023 1 pack frederick schmid pamphlet Alcohol Use Standard Drinks/Week Comments Not [...] Telephone Encounter - Phi Kyle DO - 12/24/2023 10:20 AM EDT Spoke with patient's daughter. Prescription for Amlodipine 10 mg 1 tab once daily sent to pharmacy. . Patient advise continue home blood pressure monitoring. Patient may reduce dose amlodipine 10 mg 1/2 tab once daily for BP less than 90/60. Prescription medication list reconciled. Advised discontinue Chantix Advised discontinue Augmentin. Advised discontinue Zofran. documented in this encounter Plan of Treatment Upcoming Encounters Date Type Department Care Team (Late st Contact Info) Description 12/31/2023 10:30 AM EDT Imaging Radiology, [address] [place] [address] 01/04/2024 2:30 PM EDT Nurse Only Family Practice [address], [place] [address] [place] [address] Nurse [place] Fam Prac [address] [place] [address] 01/14/2024 10:20 AM EDT Office Visit Rheumatology [address] [place] [address] Elías Funes MD [address] [place], [place] [address] 03/28/2024 2:20 PM EDT Office Visit Family Practice [address], [place] [address] [place] [address] Phi Kyle DO [address] [place] [address] 05/29/2024 2:00 PM EDT Nurse Only Ancillary [address], [place] [address] [place] [address] [place], Nurse Annual Wellness Visit [address] [place] [address] Health Maintenance Due Date Last Done Comments *BISPHONATE OR OTHER ACCEPTABLE MEDICATION NEEDED FOR OSTEOPOROSIS (REFER TO SMARTSET #1146) 10/09/2022 COVID-19 Vaccine ( season) 2023 10/27/2022, 08/29/2021, 11/23/2020, Additional history exists DISCUSS TOBACCO CESSATION (REFER TO SMARTSET #3291) 09/22/2023 09/22/2022, 07/29/2021, 05/17/2021 CKD PHOS USE SMARTSET 75912 10/12/202309/18, 08/21/2020, 01/10/2019 DXA Scan 12/21/2023 12/20/2021, 12/20/2021 GFR 05/13/2024 11/13/2023, 07/19, 06/28/2023, Additional history exists Influenza Vaccine (FLU shot) (Season Ended) 2024 Albumin/Creatinine Ratio 07/17/2024 07/17/2023, 09/18 Depression Screening 07/17/2024 07/17/2023 DTaP,Tdap,and Td Vaccines (2 - Td or Tdap) 07/21/2024 07/21/2014 HbA1c 08/13/2024 08/13/2023 CKD HGB USE SMARTSET 46186 11/13/202411/13, 11/13/2023, 08/13/2023, Additional history exists O2 ASSESSMENT COMPLETED IN PAST YEAR FOR COPD 12/20/2024 12/21/2023 Alpha-1 Antitrypsin Completed 03/23/2017 VITAMIN D LEVEL ONCE IN A LIFETIME-USE SMARTSET# [id number] Completed 08/14/2018, 05/19/2016, 07/31/2014 Zoster Vaccines Completed 06/17/2020, 11/2019, 04/17/2020, Additional history exists Cologuard Discontinued 10/20/2021, 09/18, 10/13/2021, Additional history exists Colorectal Cancer Screening Discontinued Pneumococcal Vaccine: 65+ Years Completed 10/27/2022, 06/17/2015, 08/31/2014 LUNG CANCER SCREENING - USE SMARTSET 74418 Completed 09/06/2023, 08/15/2022, 07/18/2021, Additional history exists [...] goal below 140/90- Primary Unspecified essential hypertension documented in this encounter Care Teams Machine Turner Relationship Specialty Start Date End Date Phi Kyle DO [address] [place] [address] PCP - General Family Medicine 08/16/23 documented as of this encounter
--- OUTSIDE RECORDS SUMMARY | 2024-06-04 09:56 | External Medical Summary | Summary of Care ---
Author Name Unknown Organization [facility] Address [address] [place] [address] Phone [phone] Care Team Providers Care Olericulture Professor Name Role Phone Anabella, Phi Primary Care Provider + [phone] Reason for Referral * Precert (Within 10 days (routine)) - Pending Review Specialty Diagnoses / Procedures Referred By Mary Kay lu Referred To Contact Radiology Diagnoses Lung nodules Procedures CT CHEST LUNG CANCER SCREEN 3 OR 6 MONTH FOLLOW UP Paulina Ayala CRNP [address] [place] [address] Referral ID Status Reason Start Date Expiration Date V isits Requested Visits Authorized [id number] Pending Review 06/07/[phone] Encounter Details Date Type Department Care Team (Late st Contact Info) Description 12/12/2023 Orders Only [facility] [address] [facility] [address] Paulina Ayala CRNP [address] [place] [address] Lung nodules* Allergies Active Allergy Reactions Criticality Noted Date Comments Ragweed 07/21/2014 documented as of this encounter (statuses as of 12/12/2023) Medications Medication Sig Dispensed Refills Start Date [...] 11 & 1 MG X 42 OralIndications: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 [...] COPD, group B, by GOLD 2017 classification ([facility]) Inhale 2 Puffs by mouth every 6 hours as needed for Cough, Shortness of Breath or Wheezing. 18 g 3 05/15/2023 Active Lisinopril 20 MG Oral Tablet (Prinivil)Indication s:Hypertensive kidney disease with stage 3b chronic kidney disease ([facility]) Take 1 Tablet by mouth in the morning. 90 Tablet 3 05/29/2023 Active Trelegy Ellipta 200-62.5-25 MCG/ACT Aerosol Powder Breath Activated (Fluticasone-Umeclid inium-Vilanterol)Ind ications:COPD, group B, by GOLD 2017 classification ([facility]) Inhale 1 Puff by mouth daily. 60 [...] Hour (Imdur)Indications:N STEMI (non-ST elevated myocardial infarction) ([facility]) Take 1 tablet by mouth once daily [...] Tablet (Lopressor)Indicatio ns:NSTEMI (non-ST elevated myocardial infarction) ([facility]) Take 1 Tablet by mouth in the [...] mgIndications:COPD, group B, by GOLD 2017 classification ([facility]) 2.5 mg NEBULIZER PRN 06/30/2023 06/29/2024 Acti ve Albuterol Sulfate (Proventil) (5 MG/ML) 0.5% *conc* inhalation solution 2.5 mgIndications:COPD, group B, by GOLD 2017 classification ([facility]) 2.5 mg NEBULIZER PRN 06/30/2023 06/29/2024 Acti ve Albuterol Sulfate (Proventil) (2.5 MG/3ML) 0.083% inhalation solution 2.5 mgIndications:COPD (chronic obstructive pulmonary disease) with chronic bronchitis (HCC) 2.5 mg NEBULIZER Q4H PRN 08/06/2023 Active documented as of this encounter (statuses as of 12/12/2023) Active Problems Problem Noted Date Diagnosed Date Renal artery stenosis 07/17/2023 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, bilateral 07/17/2023 Dysphagia 07/17/2023 Coronary artery disease invo lving [place] coronary artery of [place] heart without angina pectoris 05/29/2023 Major depressive disorder with single episode Age-related osteoporosis wit hout current pathological fracture 10/06/2022 Lumbar degenerative disc disease 04/27/2022 Right lumbar radiculopathy 04/27/2022 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 05/17/2021 Tobacco use disorder 05/17/2021 BMI less than 19,adult 05/17/2021 Abdominal aortic aneurysm (AAA) without rupture 03/11/2021 Overview: >>OVERVIEW FOR AAA (ABDOMINAL AORTIC ANEURYSM) ([facility]) WRITTEN ON 03/11/2021 11:10 AM BY FABY GR, CRAYON MOLDING MACHINE OPERATOR 3.6 cm AAA noted on CT Chest [...] 05/15/2017 HTN, goal below 130/80 01/15/2017 Old [place] (myocardial infarction) 01/15/2017 Restless legs syndrome 04/06/2016 COPD, group B, by GOLD 2017 classification 08/28 Overview: Unable to classify severity based on 08/20/2014 PFT Gastroesophageal reflux disease without esophagi tis 07/21/2014 Dyslipidemia 07/21/2014 Hiatal hernia documented as of this encounter (statuses as of 12/12/2023) Resolved Problems Problem Noted Date Diagnosed Date [...] as of this encounter (statuses as of 12/12/2023) Immunizations Name Administration Dates Next Due COVID-19 [...] Visit Family Practice [address] [place] [address] [place] [address] Phi Kyle DO [address] [place] [address] 12/31/2023 10:30 AM EDT Imaging Radiology, [address] [place] [address] 01/14/2024 10:20 AM EDT Office Visit Rheumatology [place] [address] [place] [address] Elías Funes MD [facility] [employer] [facility] [place] [address] Scheduled Orders Name Type Priority Associated Diagnoses Orde r Schedule CT CHEST LUNG CANCER SCREEN 3 OR 6 MONTH FOLLOW UP Medical Imaging Routine Lung nodules Expected: 06/07/2024 (Approximate), Expires: 01/11/2025 Health Maintenance Due Date Last Done Comments *BISPHONATE OR OTHER ACCEPTABLE MEDICATION NEEDED FOR OSTEOPOROSIS (REFER TO SMARTSET #1146) 10/09/2022 COVID-19 Vaccine ( season) 2023 10/27/2022, 08/29/2021, 11/23/2020, Additional history exists Influenza Vaccine (FLU shot) (#1) 2023 DISCUSS TOBACCO CESSATION (REFER TO SMARTSET #3291) 09/22/2023 09/22/2022, 07/29/2021, 05/17/2021 CKD PHOS USE SMARTSET 11356 10/12/202309/18, 08/21/2020, 01/10/2019 DXA Scan 12/21/2023 12/20/2021, 12/20/2021 GFR 05/13/2024 11/13/2023, 07/19, 06/28/2023, Additional history exists Albumin/Creatinine Ratio 07/17/2024 07/17/2023, 09/18 Depression Screening 07/17/2024 07/17/2023 DTaP,Tdap,and Td Vaccines (2 - Td or Tdap) 07/21/2024 07/21/2014 O2 ASSESSMENT COMPLETED IN PAST YEAR FOR COPD 08/16/2024 08/16/2023 CKD HGB USE SMARTSET 65128 11/13/202411/13, 11/13/2023, 08/13/2023, Additional history exists Alpha-1 Antitrypsin Completed 03/23/2017 VITAMIN D LEVEL ONCE IN A LIFETIME-USE SMARTSET# [id number] Completed 08/14/2018, 05/19/2016, 07/31/2014 Zoster Vaccines Completed 06/17/2020, 11/2019, 04/17/2020, Additional history exists Cologuard Discontinued 10/20/2021, 09/18, 10/13/2021, Additional history exists Colorectal Cancer Screening Discontinued Pneumococcal Vaccine: 65+ Years Completed 10/27/2022, 06/17/2015, 08/31/2014 LUNG CANCER SCREENING - USE SMARTSET 66474 Completed 09/06/2023, 08/15/2022, 07/18/2021, Additional history exists [...] as of this encounter Visit Diagnoses Diagnosis Lung nodules- Primary Other nonspecific abnormal finding of lung field documented in this encounter Care Teams Olericulture Professor Relationship Specialty Start Date End Date Phi Kyle DO [address] [place] [address] PCP - General Family Medicine 08/16/23 documented as of this encounter
--- OUTSIDE RECORDS SUMMARY | 2024-06-04 09:57 | External Medical Summary | Summary of Care ---
Author Name Unknown Organization [facility] Address [address] [place] [address] Phone [phone] Care Team Providers Care Configuration Engineer Name Role Phone AnabellaPhi armstrong Primary Care Provider + [phone] Reason for Visit * Reason Onset Date Comments Test Results 09/07/2023 Unexpected or In determinate Result Encounter Details Date Type Department Care Team (Late st Contact Info) Description 09/07/2023 Telephone Radiology [facility] [address] [facility], [place] [address] [facility] [place] [address] Avtar Cheung MD [address] [place] [address] Test Results (Unexpected or Indeterminate ... Allergies Active Allergy Reactions Criticality Noted Date Comments Ragweed 07/21/2014 documented as of this encounter (statuses as of 12/07/2023) Medications Medication Sig Dispensed Refills Start Date [...] as directed on box. 42 Tablet 0 08/11/202 2 Active Additional Information Patient not taking.Reported on 12/05/2023 FeroSul 325 (65 Fe) MG Oral Tablet (Ferrous Sulfate)Indication s:Iron deficiency anemia due to chronic blood loss TAKE 1 TABLET BY MOUTH THREE TIMES DAILY WITH MEALS 90 Tablet 0 3 Active Albuterol Sulfate HFA 108 (90 Base) MCG/ACT Inhalation Aerosol SolutionIndication s:COPD, group B, by GOLD 2017 classification ([facility]) Inhale 2 Puffs by mouth every 6 hours as needed for Cough, Shortness of Breath or Wheezing. 18 g 3 3 Active Lisinopril 20 MG Oral Tablet (Prinivil)Indicati ons:Hypertensive kidney disease with stage 3b chronic kidney disease ([facility]) Take 1 Tablet by mouth in the morning. 90 Tablet 3 3 Active Trelegy Ellipta 200-62.5-25 MCG/ACT Aerosol Powder Breath Activated (Fluticasone-Umecl idinium-Vilanterol )Indications:COPD, group B, by GOLD 2017 classification ([facility]) Inhale 1 Puff by mouth [...] 20 MG Oral Tablet (Deltasone)Indicat ions:COPD exacerbation ([facility]) Take 4 tabs daily for 2 days, 3 tabs daily for 2 days, 2 tabs daily for 2 days, 1 tab daily for 2 days 20 Tablet 0 3 Active Additional Information Patient not taking.Reported on 12/05/2023 Ipratropium-Albute rol 0.5-2.5 (3) MG/3ML Inhalation Solution (Duoneb)Indication s:COPD exacerbation ([facility]) Inhale 3 mL by mouth every 6 [...] Hour (Imdur)Indications :NSTEMI (non-ST elevated myocardial infarction) ([facility]) Take 1 tablet by mouth [...] Additional Information Patient not taking.Reported on 12/05/2023 Molena-3 Fish Oil 1000 MG Oral Capsule (Molena-3)Indicatio ns:Dyslipidemia Take by mouth 1 Capsule in the morning AND 1 Capsule before bedtime. 60 Capsule 5 2 023 Discontinued(Pr dication List Clean Up) Metoprolol Tartrate 25 MG Oral Tablet (Lopressor)Indicat [...] group B, by GOLD 2017 classification ([facility]) 2.5 mg NEBULIZER PRN 06/30/2023 06/29/2024 Acti ve Albuterol Sulfate (Proventil) (5 MG/ML) 0.5% *conc* inhalation solution 2.5 mgIndications:COPD, group B, by GOLD 2017 classification ([facility]) 2.5 mg NEBULIZER PRN 06/30/2023 06/29/2024 Acti ve Albuterol Sulfate (Proventil) (2.5 MG/3ML) 0.083% inhalation solution 2.5 mgIndications:COPD (chronic obstructive pulmonary disease) with chronic bronchitis 2.5 mg NEBULIZER Q4H PRN 08/06/2023 Active documented as of this encounter (statuses as of 12/07/2023) Active Problems Problem Noted Date Diagnosed Date Renal artery stenosis 07/17/2023 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, bilateral 07/17/2023 Dysphagia 07/17/2023 Coronary artery disease invo lving [place] coronary artery of [place] heart without angina pectoris 05/29/2023 Major depressive [...] (HCC) WRITTEN ON 03/11/2021 11:10 AM BY SHRINER, FABY L, RETAIL SALES MERCHANDISER 3.6 cm AAA noted on CT Chest [...] 05/15/2017 HTN, goal below 130/80 01/15/2017 Old [place] (myocardial infarction) 01/15/2017 Restless legs syndrome 04/06/2016 COPD, group B, by GOLD 2017 classification 08/28 Overview: Unable to classify severity based on 08/20/2014 PFT Gastroesophageal reflux disease without esophagi tis 07/21/2014 Dyslipidemia 07/21/2014 Hiatal hernia documented as of this encounter (statuses as of 12/07/2023) Resolved Problems Problem Noted Date Diagnosed Date [...] as of this encounter (statuses as of 12/07/2023) Immunizations Name Administration Dates Next Due COVID-19 [...] encounter Miscellaneous Notes * Telephone Encounter - Na Giron OSA - 09/07/2023 6:46 PM EST Hello- The radiologist discovered an unexpected or indeterminate finding on Laura Pagan ([id number]) and asks that you review the following report. Study Type: CT CHEST LOW DOSE SCAN LUNG CANCER SCREEN 1 YEAR FOLLOW UP Date of Study: 09/06/2023 IMPRESSION 1. LungRADS Category 4A: Positive - Suspicious finding requiring clinical evaluation. Multiple new pulmonary nodules/consolidations bilaterally with utility sales representative nodules measured above. An endobronchial filling defect in a segmental right middle lobe bronchus. A short-term follow upchest CT in 3 months is suggested for re-evaluation. 2. LungRADS Category S: Negative, no new/unknown potentially significant incidental findings requiring urgent additional evaluation. 3. Incidental findings as above. Please respond to this encounter to acknowledge receipt of this message and take responsibility to ensure this report is reviewed. Thank you, GITA Caicedo Client Service [facility] documented in this encounter Plan of Treatment Upcoming Encounters Date Type Department Care Team (Late st Contact Info) Description 12/21/2023 2:20 PM EDT Office Visit Family Practice [facility], [place] [address] [place] [address] Phi Kyle, [address] [place] [place] [address] 12/31/2023 10:30 AM EDT Imaging Radiology, [place] [address] [facility] [place] [address] 01/14/2024 10:20 AM EDT Office Visit Rheumatology [place] [address] [place] [address] Elías Funes MD [address] [place], [place] [address] Health Maintenance Due Date Last Done Comments *BISPHONATE OR OTHER ACCEPTABLE MEDICATION NEEDED FOR OSTEOPOROSIS (REFER TO SMARTSET #1146) 10/09/2022 COVID-19 Vaccine ( season) 2023 10/27/2022, 08/29/2021, 11/23/2020, Additional history exists Influenza Vaccine (FLU shot) (#1) 2023 DISCUSS TOBACCO CESSATION (REFER TO SMARTSET #5578) 09/22/2023 09/22/2022, 07/29/2021, 05/17/2021 CKD PHOS USE SMARTSET 73117 10/12/202309/18, 08/21/2020, 01/10/2019 DXA Scan 12/21/2023 12/20/2021, 12/20/2021 GFR 05/13/2024 11/13/2023, 07/19, 06/28/2023, Additional history exists Albumin/Creatinine Ratio 07/17/2024 07/17/2023, 09/18 Depression Screening 07/17/2024 07/17/2023 DTaP,Tdap,and Td Vaccines (2 - Td or Tdap) 07/21/2024 07/21/2014 O2 ASSESSMENT COMPLETED IN PAST YEAR FOR COPD 08/16/2024 08/16/2023 CKD HGB USE SMARTSET 49519 11/13/202411/13, 11/13/2023, 08/13/2023, Additional history exists Alpha-1 Antitrypsin Completed 03/23/2017 VITAMIN D LEVEL ONCE IN A LIFETIME-USE SMARTSET# [id number] Completed 08/14/2018, 05/19/2016, 07/31/2014 Zoster Vaccines Completed 06/17/2020, 11/2019, 04/17/2020, Additional history exists Cologuard Discontinued 10/20/2021, 09/18, 10/13/2021, Additional history exists Colorectal Cancer Screening Discontinued Pneumococcal Vaccine: 65+ Years Completed 10/27/2022, 06/17/2015, 08/31/2014 LUNG CANCER SCREENING - USE SMARTSET 47014 Completed 09/06/2023, 08/15/2022, 07/18/2021, Additional history exists [...] filedocumented as of this encounter Care Teams Configuration Engineer Relationship Specialty Start Date End Date Phi Kyle DO [address] [place] [address] PCP - General Family Medicine 08/16/23 documented as of this encounter
--- NOTE | 2024-06-04 14:16 | Consultation ---
Date of Consultation June 04, 2024 Assessment & Plan (1) AAA (abdominal aortic aneurysm) without rupture: Pt with 4.3cm AAA, similar to previous CT scans done at [facility]. No sign of impending rupture. No indications for vascular surgical intervention at this time. Pt follows with [facility] vascular surgery, can continue to follow with them as scheduled. This was related to pt, she expresses understanding. Please call if needed. History of Present Illness Reason for Consultation: AAA Attending Physician: Brendan Villeda MD History of Present Illness 79 yo f with hx of AAA, HTN, COPD, GERD, Dyslipidemia, RLS, anxiety, neuropathy, CAD, admitted with abd pain, seen in consultation today for AAA. Pt states she follows with [facility] Vascular Surgery and last saw them in 11/2023. States she developed severe lower abd pain a few days ago which did not improve at home, so came to [facility]. Pt states sx have essentially resolved at this time. Denies SALDANA, fever, chest pain, sob, cough, N/V, rest pain, claudication, other complaints. CT abd/pelvis demonstrates AAA 4.3cm in largest diameter. This is similar to previous imaging. Allergies Allergy/AdvReac Type Severity Reaction Status Date / Time No Known Allergies Allergy Unverified 07/10/23 19:06 Home Medications Medication Instructions Recorded Confirmed Type albuterol sulfate 90 mcg/actuation 2 puff inhalation Q6H PRN 06/04/24 06/04/24 History aerosol inhaler Shortness Of Breath Or Wheezing amlodipine 10 mg tablet 10 mg PO DAILY 06/04/24 06/04/24 History aspirin 81 mg tablet,delayed 81 mg PO DAILY 06/04/24 06/04/24 History release atorvastatin 40 mg tablet 40 mg PO DAILY 06/04/24 06/04/24 History buspirone 10 mg tablet 5 mg PO BID 06/04/24 06/04/24 History calcium carb-vit D3-minerals 600 1 tab PO DAILY 06/04/24 06/04/24 History mg calcium-400 unit tablet famotidine 20 mg tablet 20 mg PO DAILY 06/04/24 06/04/24 History fenofibrate nanocrystallized 145 145 mg PO DAILY 06/04/24 06/04/24 History mg tablet fluticasone fur. 200 mcg-umeclid 1 inh inhalation DAILY 06/04/24 06/04/24 History 62.5 mcg-vilant 25 mcg inhalat.powder (Trelegy Ellipta) gabapentin 100 mg capsule 100 mg PO BID 06/04/24 06/04/24 History icosapent ethyl 1 gram capsule 2 g PO BID 06/04/24 06/04/24 History isosorbide mononitrate 30 mg 30 mg PO DAILY 06/04/24 06/04/24 History tablet,extended release 24 hr lisinopril 20 mg tablet 20 mg PO DAILY 06/04/24 06/04/24 History metoprolol tartrate 25 mg tablet 25 mg PO BID 06/04/24 06/04/24 History mirtazapine 15 mg tablet 15 mg PO HS 06/04/24 06/04/24 History montelukast 10 mg tablet 10 mg PO DAILY 06/04/24 06/04/24 History omeprazole 20 mg capsule,delayed 40 mg PO DAILY 06/04/24 06/04/24 History release sertraline 100 mg tablet 100 mg PO DAILY 06/04/24 06/04/24 History Patient History Family History Other Diabetes Family history non-contributory Heart disease Social History Smoking Status: Current every day smoker Tobacco Type: Cigarettes Cigarettes Per Day: 20; Hx Alcohol Use: No Hx Substance Use: No Preferred Language: Burmese Communication Ability: Effective Staff Interpreter Required: No Beliefs That Will Affect Care: None Current Living Situation: Family Feels Safe at Home: Yes Safety Concerns: Feels Safe At This Time Assistive Devices: None Review of Systems Review of Systems: All systems reviewed & are unremarkable except as noted in HPI & below Physical Exam Constitutional: + thin, cooperative and comfortable (eat ing lunch currently); not in distress ENMT: Ears: no hearing impairment Neck: trachea midline Respiratory: normal respiratory effort Auscultation: lungs clear to auscultation bilaterally and + diminished lung sounds Cardiovascular: Rate/Rhythm: regular rate and regular rhythm Vessels: posterior tibial pulses present, dorsalis pedis pulses present and radial pulses present; + abnormal peripheral pulses Extremities: normal capillary refill; no edema Gastrointestinal (Abdomen): Inspection/Auscultation: abdomen normal to inspection and normal bowel sounds Percussion/Palpation: abdomen soft and + pulsatile mass (approx 4.5cm); abdomen nontender Musculoskeletal: no cyanosis or clubbing, extremities motor strength 5/5 Skin: no rashes, warm and dry Neurologic: moves all extremities and awake; no focal motor deficits and not confused Psychiatric: A+Ox3, euthymic affect Results & Data Vital Signs (Past 12 Hours) Vital Signs Temp Pulse Pulse Resp BP Pulse Ox Pulse Ox 06/04/24 12:54 36.6 C 83 16 131/74 92 06/04/24 08:53 96 06/04/24 08:53 102 H 18 96 06/04/24 08:00 57 L 18 159/100 H 96 06/04/24 06:00 88 21 161/83 H 91 06/04/24 05:35 87 06/04/24 05:00 88 16 170/93 H 95 06/04/24 03:00 89 21 152/87 H 92 O2 Del Method 06/04/24 12:54 Room Air 06/04/24 08:53 06/04/24 08:53 Room Air 06/04/24 08:00 Room Air 06/04/24 06:00 Room Air 06/04/24 05:35 06/04/24 05:00 Room Air 06/04/24 03:00 Room Air
[2024-06-04 14:46] LABS: Calcium 9.7 mg/dl (8.6-10.3)
[2024-06-04 14:47] LABS: BUN Creatinine Ratio 28.7 (10-20); Creatinine Clr Calc Pharmacy 34.2 ml/min; Est GFR (African American) 74.5 ml/min; Est GFR (Non-African American) 64.3 ml/min; Potassium 3.1 mmol/L (3.5-5.1)
--- NOTE | 2024-06-04 14:56 | Nephrology Consultation ---
Date of Consultation June 04, 2024 Assessment & Plan (1) Acute hyponatremia: hyponatremia which is acute on chronic in history and almost certainly multifactorial with SIADH as well as poor nutritional status /low protein intake and a relatively high fluid intake. she only weighs 40 kilos and her protein intake is quite low but then her fluid intake is very high. So this combination of low protein intake and high fluid intake does make hyponatremia worse specially in susceptible patient like her with underlying SIADH. sodium has gone up from 124-128 in about 16 hours time. So this is not a fast rate of correction. Will continue normal saline for the time being at a lower rate of 50 mL/hour. she does not need salt tablet or urea will add fluid restriction of 1200 mL per day we do need urine osmolarity and urine sodium for further assessment of hyponatremia. at this point the next blood work can be done in the morning and would do renal panel magnesium TSH cortisol serum osmolarity. (2) Hypercalcemia: she was taking 6 tablets of Tums per day on top of her regular calcium and vitamin-D. PTH was suppressed as expected. The etiology of hypercalcemia is excessive calcium intake. I did increase the fluid rate mainly to correct the hypercalcemia and it is down to normal range. so we will cut down the saline rate to 50 mL/hour. no further workup for hypercalcemia as needed. I did advise her not to take so much of Tums for abdominal pain /indigestion. with her body weight it does not take a lot of exogenous calcium to cause hypercalcemia. Plan case complexity high. Total time spent 65 minutes. History of Present Illness Reason for Consultation: hyponatremia and hypercalcemia Attending Physician: Brendan Villeda MD History of Present Illness 79-year-old female with history of hyponatremia for many years presumed to be secondary to combination of SIADH and poor nutritional status. her last few outpatient sodium has been in the 130-134 range. in 2018 she had serum sodium as low as 125. does not appear patient is taking any special medication for hyponatremia not following any fluid restriction. on detailed questioning it appears patient does drink a lot of liquid--- about 4 sodas per day as well as 2 large coffee. She does not drink much water. Protein intake is pretty low and she is quite malnourished with a body weight of 40 kilos at this time. for the last 1 week she has been having lower abdominal pain. She went to Urgent Care and was told that her aneurysm is very large and needed urgent vascular evaluation. she has already be seen by vascular at [facility] since being admitted and vascular note says there is no acute indication for surgery at this time. also the abdominal pain is unrelated with abdominal aneurysm. She has not had any bowel movement for the last 1 week. Because of abdominal discomfort she has been taking Tums about 6 tablets per day on top of her regular calcium/ vitamin-D. Not surprisingly her calcium was quite high at 12.6 on the initial blood work but after IV fluid it is already down to 9.8. serum sodium was 124 on the 1st blood test and is up to 128 now. potassium is low. review of systems--- positive for abdominal discomfort in the lower abdomen area with some bloating. No bowel movement for 1 week. poor appetite. Otherwise 12 systems reviewed and negative physical examination very thin elderly white female. She is not in any respiratory distress and was able to tell detailed account of her medical problems. mucous membrane is moist neck is supple no JVD chest bilateral decreased breath sound with occasional wheezing and prolonged expiration CVS S1-S2 regular abdomen is soft nontender extremities shows no edema neurologically she is awake alert oriented x3 and was able to give detailed account of her medical problems normal speech moving all 4 extremities skin- no rash noted Allergies Allergy/AdvReac Type Severity Reaction Status Date / Time No Known Allergies Allergy Unverified 07/10/23 19:06 Home Medications Medication Instructions Recorded Confirmed Type albuterol sulfate 90 mcg/actuation 2 puff inhalation Q6H PRN 06/04/24 06/04/24 History aerosol inhaler Shortness Of Breath Or Wheezing amlodipine 10 mg tablet 10 mg PO DAILY 06/04/24 06/04/24 History aspirin 81 mg tablet,delayed 81 mg PO DAILY 06/04/24 06/04/24 History release atorvastatin 40 mg tablet 40 mg PO DAILY 06/04/24 06/04/24 History buspirone 10 mg tablet 5 mg PO BID 06/04/24 06/04/24 History calcium carb-vit D3-minerals 600 1 tab PO DAILY 06/04/24 06/04/24 History mg calcium-400 unit tablet famotidine 20 mg tablet 20 mg PO DAILY 06/04/24 06/04/24 History fenofibrate nanocrystallized 145 145 mg PO DAILY 06/04/24 06/04/24 History mg tablet fluticasone fur. 200 mcg-umeclid 1 inh inhalation DAILY 06/04/24 06/04/24 History 62.5 mcg-vilant 25 mcg inhalat.powder (Trelegy Ellipta) gabapentin 100 mg capsule 100 mg PO BID 06/04/24 06/04/24 History icosapent ethyl 1 gram capsule 2 g PO BID 06/04/24 06/04/24 History isosorbide mononitrate 30 mg 30 mg PO DAILY 06/04/24 06/04/24 History tablet,extended release 24 hr lisinopril 20 mg tablet 20 mg PO DAILY 06/04/24 06/04/24 History metoprolol tartrate 25 mg tablet 25 mg PO BID 06/04/24 06/04/24 History mirtazapine 15 mg tablet 15 mg PO HS 06/04/24 06/04/24 History montelukast 10 mg tablet 10 mg PO DAILY 06/04/24 06/04/24 History omeprazole 20 mg capsule,delayed 40 mg PO DAILY 06/04/24 06/04/24 History release sertraline 100 mg tablet 100 mg PO DAILY 06/04/24 06/04/24 History Patient History Family History Other Diabetes Family history non-contributory Heart disease Social History Smoking Status: Current every day smoker Tobacco Type: Cigarettes Cigarettes Per Day: 20; Hx Alcohol Use: No Hx Substance Use: No Preferred Language: Greenlandic Communication Ability: Effective Superintendent Service Required: No Beliefs That Will Affect Care: None Current Living Situation: Family Feels Safe at Home: Yes Safety Concerns: Feels Safe At This Time Assistive Devices: None Results & Data Vital Signs (Past 12 Hours) Vital Signs Temp Pulse Pulse Resp BP Pulse Ox Pulse Ox 06/04/24 12:54 36.6 C 83 16 131/74 92 06/04/24 08:53 96 06/04/24 08:53 102 H 18 96 06/04/24 08:00 57 L 18 159/100 H 96 06/04/24 06:00 88 21 161/83 H 91 06/04/24 05:35 87 06/04/24 05:00 88 16 170/93 H 95 06/04/24 03:00 89 21 152/87 H 92 O2 Del Method 06/04/24 12:54 Room Air 06/04/24 08:53 06/04/24 08:53 Room Air 06/04/24 08:00 Room Air 06/04/24 06:00 Room Air 06/04/24 05:35 06/04/24 05:00 Room Air 06/04/24 03:00 Room Air
[2024-06-04] MEDS ORDERED: bisacodyL 10 MG SUPP PR PRN (15:02)
[2024-06-04] MEDS: POTASSIUM CHLORIDE CRTAB 20 MEQ TABCR PO ONE (16:18)
[2024-06-04] MEDS: cefTRIAXone SODIUM 1,000 MG/50 ML BAG IV SCH (16:18)
[2024-06-04] MEDS: POLYETHYLENE (MIRALAX) 17 GM PACK PO SCH (17:03)
[2024-06-04 17:11] LABS: BUN Creatinine Ratio 32.5 (10-20); Creatinine Clr Calc Pharmacy 37.2 ml/min; Est GFR (African American) 82.4 ml/min; Est GFR (Non-African American) 71.1 ml/min
[2024-06-04] MEDS: POTASSIUM CHLORIDE / WTR 10 MEQ/100 ML PLCT IV SCH (17:24)
--- NOTE | 2024-06-04 18:16 | Hospitalist Progress Note ---
Date of Service June 04, 2024 Assessment & Plan (1) Enteritis: Plan: 79-year-old female with past medical history significant for dyslipidemia, prediabetes, COPD, was on oxygen last year for few months but currently not on any oxygen at home, pulmonary Cachexia due to chronic obstructive pulmonary disease, hiatal hernia, multiple lung nodules, seasonal allergic rhinitis, renal artery stenosis, mesenteric artery stenosis, iliac artery stenosis bilateral, hypertension, CAD, history of abdominal aortic aneurysm, GERD, dysphagia, CKD stage III, restless leg syndrome, anemia and due to chronic kidney disease, DEVAN, tobacco use disorder, mild cognitive impairment, BMI less than 19 who lives at home with her daughter ambulates without support comes because of abdominal pain going on for last 4 days. Patient states also having severe abdominal pain for last 4 days not getting better so she came to the ER. Was also nauseous. Received Zofran in the ER. Currently nausea improved. Currently abdominal pain is much better. Did not move her bowels for last 4 days. Micturating less. Denies any chest pain or shortness of breath. No cough. No fevers. No headache. No runny nose or sore throat. Did not eat much last few days. Currently resting comfortably and hemodynamically stable., Somewhat hard to hear. Abdominal pain ? Secondary to constipation CT abdomen showing mild enteritis Will obtain stool studies if develops diarrhea Gentle IV fluids Liquid diet for now Monitor Community-acquired pneumonia --CXR:A few patchy right lower lobe opacities which favor a mild infectious process. -- Elevated procalcitonin --Check BioFire -Empirically started on Rocephin, doxycycline Saturating low 90s on room air Abdominal aortic aneurysm --CT: Infrarenal abdominal aortic aneurysm, measures 7.0 x 3.3 x 4.1 cm. This has increased in size when compared to July 10, 2023 -- Appreciate vascular surgery input: No surgical intervention needed at this time -- Needs follow-up with outpatient vascular surgery on discharge Constipation Started on bowel regimen Monitor Acute on Chronic Hyponatremia Sodium 124>128 Likely multifactorial: SIADH, poor nutritional status, high fluid intake -- Continue gentle IV fluids Continue fluid restriction as well Appreciate nephrology input Follow-up urine osmolality, urine sodium, TSH, serum osmolality Hypercalcemia Calcium 12.6 Likely secondary to Tums Hold calcium supplements Continue gentle IV fluids Monitor calcium levels Hypercalcemia workup pending Hypokalemia Replete electrolytes as needed Monitor COPD Continue home inhalers Pulmonary cachexia due to COPD Dietitian consult H/O Multiple lung nodules There is a follow-up CT scan this month 06/07 as per PCP notes CKD III Cr at baseline Monitor H/O CAD Continue statin, fenofibrate, Imdur, metoprolol, aspirin GERD PPI and famotidine Prediabetes Check HbA1c levels Generalized anxiety disorder On Remeron buspirone and Zoloft Hypertension On amlodipine, metoprolol, lisinopril, isosorbide mononitrate monitor Malnutrition Dietitian consult DVT Px Heparin SQ Code Status Full code Disposition PT OT prior to discharge Admission and Anticipated Discharge Date Admission Date: June 04, 2024 Subjective Patient is seen and examined at bedside States having cough with some expectoration Abdominal pain much improved this morning per patient Denies any chest pain, dyspnea, nausea, vomiting Had no bowel movement today Discussed with patient's family at bedside Review of Systems Review of Systems: All systems reviewed & are unremarkable except as noted in Subjective Physical Exam Physical Exam: Physical Exam: Vitals signs as noted above General Appearance: Thin, frail, elderly, no apparent distress Head: normocephalic, Atraumatic Eyes: normal inspection, EOMI Neck: supple, Trachea midline Respiratory/Chest: Decreased breath sounds, CTA, No accessory muscle use Cardiovascular: S1, S2, No murmur Abdomen/GI:Soft, Non tender, Bowel sounds present Extremities/Musculoskeletal:normal inspection, no edema Neurologic/Psych:AAOX3, grossly no focal neurological deficits Skin: normal color, warm Results & Data Results & Data Vital Signs (Past 12 Hours) Vital Signs Temp Pulse Resp BP Pulse Ox Pulse Ox O2 Del Method 06/04/24 16:30 36.5 C 81 18 114/64 91 Room Air 06/04/24 16:18 82 17 114/67 90 Room Air 06/04/24 12:54 36.6 C 83 16 131/74 92 Room Air 06/04/24 08:53 96 06/04/24 08:53 102 H 18 96 Room Air 06/04/24 08:00 57 L 18 159/100 H 96 Room Air Laboratory Results Short CBC 06/03/24 06/04/24 Range/Units 21:37 08:54 WBC 11.76 H 9.83 (4.8-10.8) K/ul Hgb 12.5 11.7 L (12.0-16.0) g/dl Hct 35.0 L 33.0 L (37.0-47.0) % Plt Count 319 298 (130-400) K/uL BMP 06/03/24 06/04/24 06/04/24 21:37 08:54 14:14 Sodium 124 L 126 L 128 L Potassium 3.6 3.4 L 3.1 L Chloride 89 L 94 L 99 Carbon Dioxide 24 23 21 BUN 31 H 26 H 25 H Creatinine 0.86 0.80 0.87 Glucose 135 H 96 124 H Calcium 12.6 H* 11.0 H 9.7 Liver Function 06/03/24 Range/Units 21:37 Total Bilirubin 1.0 (0.2-1.0) mg/dl AST 34 (13-39) U/L ALT 16 (7-52) U/L Alkaline Phosphatase 73 (34-104) U/L Albumin 4.4 (3.4-5.0) gm/dl Urine 06/04/24 Range/Units 00:20 Urine Color Yellow Urine Appearance Clear (Clear) Urine pH 7.5 (4.5-7.5) Ur Specific Jud 1.038 H (1.000-1.030) Urine Protein Negative (Negative) Urine Glucose (UA) Negative (Negative)
[2024-06-04] MEDS: icosapent ethyL 1 GM CAP PO SCH (18:53)
[2024-06-04 19:45] LABS: Adenovirus PCR Not Detected (NotDetected); Bordetella parapertussis PCR Not Detected (NotDetected); Bordetella pertussis PCR Not Detected (NotDetected); Chlamydia pneumoniae PCR Not Detected (NotDetected); Coronavirus 229E PCR Not Detected (NotDetected); Coronavirus CoV-2 (COVID19)PCR Not Detected (NotDetected); Coronavirus HKU1 PCR Not Detected (NotDetected); Coronavirus NL63 PCR Not Detected (NotDetected); Coronavirus OC43PCR Not Detected (NotDetected); Human Metapneumovirus PCR Not Detected (NotDetected); Influenza A PCR Not Detected (NotDetected); Influenza B PCR Not Detected (NotDetected); Mycoplasma pneumoniae PCR Not Detected (NotDetected); Parainfluenza Virus 1 PCR Not Detected (NotDetected); Parainfluenza Virus 2 PCR Not Detected (NotDetected); Parainfluenza Virus 3 PCR Not Detected (NotDetected); Parainfluenza Virus 4 PCR Not Detected (NotDetected); Respiratory Syncytial VirusPCR Not Detected (NotDetected); Rhinovirus/Enterovirus PCR Not Detected (NotDetected)
[2024-06-04] MEDS: MIRTAZAPINE TAB 15 MG TAB PO SCH (20:59)
[2024-06-04] MEDS: DOCUSATE SODIUM 100 MG CAP PO SCH (21:01)
[2024-06-04] MEDS: DOXYCYCLINE HYCLATE 100 MG CAP PO SCH (21:01)
[2024-06-04 21:47] LABS: BUN Creatinine Ratio 26.8 (10-20); Calcium 9.6 mg/dl (8.6-10.3); Creatinine Clr Calc Pharmacy 36.3 ml/min; Potassium 3.5 mmol/L (3.5-5.1)
--- NOTE | 2024-06-05 06:08 | Electrocardiogram Report ---
Test Reason : Blood Pressure : */* mmHG Vent. Rate : 101 BPM Atrial Rate : 101 BPM P-R Int : 126 ms QRS Dur : 82 ms QT Int : 340 ms P-R-T Axes : 77 49 77 degrees QTcB Int : 440 ms Sinus tachycardia Possible Left atrial enlargement Septal infarct (cited on or before 10-Jul-2023) Abnormal ECG When compared with ECG of 10-Jul-2023 16:12, No significant change was found Confirmed by Seven Bonner ([id number]) on 06/05/2024 6:07:52 AM Referred By: REFERRED SELF Confirmed By: Seven Bonner
[2024-06-05 08:09] LABS: Hemoglobin 11.1 g/dl (12.0-16.0); Mean Corpuscular Hemoglobin 30.2 pg (25.0-34.0); Mean Corpuscular Hgb Conc 34.7 g/dL (32.0-36.0); Mean Platelet Volume 9.9 fL (9.4-12.4); Platelet Count 250 K/uL (130-400); RDW Coefficient of Variation 12.5 % (11.5-14.5); RDW Standard Deviation 40.2 fL (36.4-46.3); Red Blood Count 3.68 M/uL (4.20-5.40); White Blood Count 6.89 K/ul (4.8-10.8)
[2024-06-05 08:37] LABS: BUN Creatinine Ratio 26.5 (10-20); Calcium 9.5 mg/dl (8.6-10.3); Creatinine Clr Calc Pharmacy 34.3 ml/min; Est GFR (African American) 78.8 ml/min; Magnesium 1.1 mg/dl (1.7-2.4); Potassium 3.3 mmol/L (3.5-5.1)
[2024-06-05 08:43] LABS: Estimated Average Glucose 114 mg/dl; Hemoglobin A1C 5.6 % (4.5-5.6)
[2024-06-05 08:53] LABS: Thyroid Stimulating Hormone 0.787 uIu/ml (0.300-4.500)
[2024-06-05] MEDS: MAGNESIUM SULFATE / D5W 1 GM/100 ML BAG IV SCH (10:12)
[2024-06-05] MEDS: POTASSIUM CHLORIDE CRTAB 20 MEQ TABCR PO ONE (10:12)
[2024-06-05] MEDS: MAGNESIUM OXIDE 400 MG TAB PO SCH (10:12)
--- NOTE | 2024-06-05 14:35 | Nephrology Progress Note ---
Date of Service June 05, 2024 Assessment & Plan Admission and Anticipated Discharge Date Admission Date: June 04, 2024 Subjective Assessment & Plan (1) Acute hyponatremia: hyponatremia which is acute on chronic in history and almost certainly multifactorial with SIADH as well as poor nutritional status /low protein intake and a relatively high fluid intake. she only weighs 40 kilos and her protein intake is quite low but then her fluid intake is very high. So this combination of low protein intake and high fluid intake does make hyponatremia worse specially in susceptible patient like her with underlying SIADH. sodium has gone up from 124-131 at appropriate rate. Will continue normal saline for the time being at a lower rate of 50 mL/hour till tomorrow till we kn ow she eats normal diet. she does not need salt tablet or urea will add fluid restriction of 1200 mL per day TSH and cortisol normal. mag is low and K is also low--given diarrhea now will give iv mag 2 gm. Also give oral kcl 40 bid. Also change mag ox to slow mag 64 bid. (2) Hypercalcemia: she was taking 6 tablets of Tums per day on top of her regular calcium and vitamin-D. PTH was suppressed as expected. The etiology of hypercalcemia is excessive calcium intake. ca now normal. no further workup for hypercalcemia as needed. I did advise her not to take Tums for abdominal pain /indigestion. She can take the usual one tab of Calcium/Vit D. with her body weight it does not take a lot of exogenous calcium to cause hypercalcemia. S-- started having Stool incontinence after Stool softener. diet advanced to Carb consistent. Not much appetite yet. denies Abd pain or nausea now. Labs are better physical examination very thin elderly white female. She is not in any respiratory distress and was able to tell detailed account of her medical problems. mucous membrane is moist neck is supple no JVD chest bilateral decreased breath sound with occasional wheezing and prolonged expiration CVS S1-S2 regular abdomen is soft nontender extremities shows no edema neurologically she is awake alert oriented x3 and was able to give detailed account of her medical problems normal speech moving all 4 extremities skin- no rash noted Results & Data Vital Signs (Past 12 Hours) Vital Signs Temp Pulse Pulse Resp BP Pulse Ox O2 Del Method 06/05/24 12:38 36.3 C L 81 18 109/65 93 Room Air 06/05/24 09:00 89 06/05/24 07:57 36.6 C 90 18 143/85 H 91 Room Air 06/05/24 03:37 37.1 C 82 18 144/77 H 94 Room Air
--- NOTE | 2024-06-05 15:36 | Hospitalist Progress Note ---
Date of Service June 05, 2024 Assessment & Plan (1) Enteritis: Plan: 79-year-old female with past medical history significant for dyslipidemia, prediabetes, COPD, was on oxygen last year for few months but currently not on any oxygen at home, pulmonary Cachexia due to chronic obstructive pulmonary disease, hiatal hernia, multiple lung nodules, seasonal allergic rhinitis, renal artery stenosis, mesenteric artery stenosis, iliac artery stenosis bilateral, hypertension, CAD, history of abdominal aortic aneurysm, GERD, dysphagia, CKD stage III, restless leg syndrome, anemia and due to chronic kidney disease, DEVAN, tobacco use disorder, mild cognitive impairment, BMI less than 19 who lives at home with her daughter ambulates without support comes because of abdominal pain going on for last 4 days. Patient states also having severe abdominal pain for last 4 days not getting better so she came to the ER. Was also nauseous. Received Zofran in the ER. Currently nausea improved. Currently abdominal pain is much better. Did not move her bowels for last 4 days. Micturating less. Denies any chest pain or shortness of breath. No cough. No fevers. No headache. No runny nose or sore throat. Did not eat much last few days. Currently resting comfortably and hemodynamically stable., Somewhat hard to hear. Abdominal pain ? Secondary to constipation CT abdomen showing mild enteritis Will obtain stool studies if develops diarrhea Gentle IV fluids Abdominal pain resolved Advance diet as tolerated Community-acquired pneumonia --CXR:A few patchy right lower lobe opacities which favor a mild infectious process. -- Elevated procalcitonin --BioFire negative -Empirically started on Rocephin, doxycycline Saturating low 90s on room air Continue current antibiotics Abdominal aortic aneurysm --CT: Infrarenal abdominal aortic aneurysm, measures 7.0 x 3.3 x 4.1 cm. This has increased in size when compared to July 10, 2023 -- Appreciate vascular surgery input: No surgical intervention needed at this time -- Needs follow-up with outpatient vascular surgery on discharge Constipation Continue bowel regimen Monitor Acute on Chronic Hyponatremia Sodium 124>128>131 Likely multifactorial: SIADH, poor nutritional status, high fluid intake -- Continue gentle IV fluids per nephrology Continue fluid restriction as well Appreciate nephrology input Hypercalcemia Calcium 12.6 Likely secondary to Tums Hold calcium supplements Continue gentle IV fluids Monitor calcium levels Resolved, Monitor Hypokalemia Hypomagnesemia Replete electrolytes as needed Monitor COPD Continue home inhalers Pulmonary cachexia due to COPD Dietitian consult H/O Multiple lung nodules There is a follow-up CT scan this month 06/07 as per PCP notes CKD III Cr at baseline Monitor H/O CAD Continue statin, fenofibrate, Imdur, metoprolol, aspirin GERD PPI and famotidine Prediabetes HbA1c 5.6 Generalized anxiety disorder On Remeron buspirone and Zoloft Hypertension On amlodipine, metoprolol, lisinopril, isosorbide mononitrate monitor Malnutrition Dietitian consult DVT Px Heparin SQ Code Status Full code Disposition PT OT prior to discharge Admission and Anticipated Discharge Date Admission Date: June 04, 2024 Subjective Patient is seen and examined at bedside Was mildly delirious overnight per staff Abdominal pain resolved Still has minimal cough Calcium levels normalized Denies any chest pain, dyspnea, nausea, vomiting Had bowel movement today Review of Systems Review of Systems: All systems reviewed & are unremarkable except as noted in Subjective Physical Exam Physical Exam: Physical Exam: Vitals signs as noted above General Appearance: Thin, frail, elderly, no apparent distress Head: normocephalic, Atraumatic Eyes: normal inspection, EOMI Neck: supple, Trachea midline Respiratory/Chest: Decreased breath sounds, CTA, No accessory muscle use Cardiovascular: S1, S2, No murmur Abdomen/GI:Soft, Non tender, Bowel sounds present Extremities/Musculoskeletal:normal inspection, no edema Neurologic/Psych:AAOX3, grossly no focal neurological deficits Skin: normal color, warm Results & Data Results & Data Vital Signs (Past 12 Hours) Vital Signs Temp Pulse Pulse Resp BP Pulse Ox O2 Del Method 06/05/24 15:27 36.3 C L 90 18 135/71 93 Room Air 06/05/24 12:38 36.3 C L 81 18 109/65 93 Room Air 06/05/24 09:00 89 06/05/24 07:57 36.6 C 90 18 143/85 H 91 Room Air 06/05/24 03:37 37.1 C 82 18 144/77 H 94 Room Air Laboratory Results Short CBC 06/05/24 Range/Units 07:37 WBC 6.89 (4.8-10.8) K/ul Hgb 11.1 L (12.0-16.0) g/dl Hct 32.0 L (37.0-47.0) % Plt Count 250 (130-400) K/uL BMP 06/04/24 06/04/24 06/04/24 08:54 14:14 20:57 Sodium 126 L 128 L 126 L Potassium 3.5 Chloride 94 L 97 L Carbon Dioxide 23 21 BUN 26 H 25 H 22 Creatinine 0.80 0.87 0.82 Glucose 96 96 Calcium 11.0 H 9.7 9.6 06/05/24 07:37 Sodium 131 L Potassium 3.3 L Chloride 102 Carbon Dioxide 22 BUN 22 Creatinine 0.83 Glucose 80 Calcium 9.5
[2024-06-05] MEDS: MAGNESIUM CHLORIDE W/CALCIUM 64MG DELAYED REL TAB PO SCH (20:40)
[2024-06-06 07:41] LABS: Hematocrit (blood only) 33.7 % (37.0-47.0); Hemoglobin 11.6 g/dl (12.0-16.0); Mean Corpuscular Hemoglobin 30.1 pg (25.0-34.0); Mean Corpuscular Hgb Conc 34.4 g/dL (32.0-36.0); Mean Corpuscular Volume 87.5 fL (80.0-100.0); Mean Platelet Volume 9.4 fL (9.4-12.4); Platelet Count 292 K/uL (130-400); RDW Coefficient of Variation 12.4 % (11.5-14.5); RDW Standard Deviation 39.8 fL (36.4-46.3); Red Blood Count 3.85 M/uL (4.20-5.40); White Blood Count 7.19 K/ul (4.8-10.8)
[2024-06-06 07:45] LABS: BUN Creatinine Ratio 25.3 (10-20); Calcium 9.2 mg/dl (8.6-10.3); Creatinine Clr Calc Pharmacy 31.2 ml/min; Est GFR (African American) 70.5 ml/min; Est GFR (Non-African American) 60.9 ml/min; Magnesium 1.6 mg/dl (1.7-2.4)
[2024-06-06] MEDS: POTASSIUM CHLORIDE CRTAB 20 MEQ TABCR PO ONE (08:32)
[2024-06-06] MEDS: MAGNESIUM SULFATE / D5W 1 GM/100 ML BAG IV SCH (08:44)
--- NOTE | 2024-06-06 09:40 | Nephrology Progress Note ---
Date of Service June 06, 2024 Assessment & Plan Admission and Anticipated Discharge Date Admission Date: June 04, 2024 Subjective Assessment & Plan (1) Acute hyponatremia: hyponatremia which is acute on chronic in history and almost certainly multifactorial with SIADH as well as poor nutritional status /low protein intake and a relatively high fluid intake. she only weighs 40 kilos and her protein intake is quite low but then her fluid intake is very high. So this combination of low protein intake and high fluid intake does make hyponatremia worse specially in susceptible patient like her with underlying SIADH and COPD. sodium has gone up from 124-133 at appropriate rate. Will continue normal saline for the time being at a lower rate of 50 mL/hour till tomorrow till we know she eats normal diet. she does not need salt tablet or urea will add fluid restriction of 1200 mL per day TSH and cortisol normal. Also give oral kcl 40 bid. Also change mag ox to slow mag 64 bid. (2) Hypercalcemia: she was taking 6 tablets of Tums per day on top of her regular calcium and vitamin-D. PTH was suppressed as expected. The etiology of hypercalcemia is excessive calcium intake. ca now normal. no further workup for hypercalcemia as needed. I did advise her not to take Tums for abdominal pain /indigestion. She can take the usual one tab of Calcium/Vit D. with her body weight it does not take a lot of exogenous calcium to cause hypercalcemia. S-- started having Stool incontinence after Stool softener. diet advanced to Carb consistent. Not much appetite yet. denies Abd pain or nausea now. Labs are better physical examination very thin elderly white female. She is not in any respiratory distress and was able to tell detailed account of her medical problems. mucous membrane is moist neck is supple no JVD chest bilateral decreased breath sound with occasional wheezing and prolonged expiration CVS S1-S2 regular abdomen is soft nontender extremities shows no edema neurologically she is awake alert oriented x3 and was able to give detailed account of her medical problems normal speech moving all 4 extremities skin- no rash noted Results & Data Vital Signs (Past 12 Hours) Vital Signs Temp Pulse Pulse Resp BP Pulse Ox O2 Del Method 06/06/24 07:37 36.3 C L 85 18 155/71 H 93 Room Air 06/06/24 07:33 84 06/06/24 05:04 36.6 C 85 17 160/81 H 93 Room Air 09/19/24 23:27 36.4 C L 78 18 146/72 H 96 Room Air
--- NOTE | 2024-06-06 15:42 | Hospitalist Progress Note ---
Date of Service June 06, 2024 Assessment & Plan (1) Enteritis: Plan: 79-year-old female with past medical history significant for dyslipidemia, prediabetes, COPD, was on oxygen last year for few months but currently not on any oxygen at home, pulmonary Cachexia due to chronic obstructive pulmonary disease, hiatal hernia, multiple lung nodules, seasonal allergic rhinitis, renal artery stenosis, mesenteric artery stenosis, iliac artery stenosis bilateral, hypertension, CAD, history of abdominal aortic aneurysm, GERD, dysphagia, CKD stage III, restless leg syndrome, anemia and due to chronic kidney disease, DEVAN, tobacco use disorder, mild cognitive impairment, BMI less than 19 who lives at home with her daughter ambulates without support comes because of abdominal pain going on for last 4 days. Patient states also having severe abdominal pain for last 4 days not getting better so she came to the ER. Was also nauseous. Received Zofran in the ER. Currently nausea improved. Currently abdominal pain is much better. Did not move her bowels for last 4 days. Micturating less. Denies any chest pain or shortness of breath. No cough. No fevers. No headache. No runny nose or sore throat. Did not eat much last few days. Currently resting comfortably and hemodynamically stable., Somewhat hard to hear. Abdominal pain ? Secondary to constipation CT abdomen showing mild enteritis Will obtain stool studies if develops diarrhea Gentle IV fluids Abdominal pain resolved Had bowel movement, tolerating regular diet Community-acquired pneumonia --CXR:A few patchy right lower lobe opacities which favor a mild infectious proc ess. -- Elevated procalcitonin --BioFire negative -Empirically started on Rocephin, doxycycline Saturating low 90s on room air Transition to oral antibiotics on discharge Abdominal aortic aneurysm --CT: Infrarenal abdominal aortic aneurysm, measures 7.0 x 3.3 x 4.1 cm. This has increased in size when compared to July 10, 2023 -- Appreciate vascular surgery input: No surgical intervention needed at this time -- Needs follow-up with outpatient vascular surgery on discharge Constipation Continue bowel regimen Monitor Acute on Chronic Hyponatremia Sodium 124>128>133 Likely multifactorial: SIADH, poor nutritional status, high fluid intake -- Continue gentle IV fluids per nephrology Continue fluid restriction as well Appreciate nephrology input Hypercalcemia Calcium 12.6 Likely secondary to Tums Hold calcium supplements Received IV fluids Monitor calcium levels Resolved, Monitor Hypokalemia Hypomagnesemia Replete electrolytes as needed Monitor COPD Continue home inhalers Pulmonary cachexia due to COPD Dietitian consult H/O Multiple lung nodules There is a follow-up CT scan this month 06/07 as per PCP notes CKD III Cr at baseline Monitor H/O CAD Continue statin, fenofibrate, Imdur, metoprolol, aspirin GERD PPI and famotidine Prediabetes HbA1c 5.6 Generalized anxiety disorder On Remeron buspirone and Zoloft Hypertension On amlodipine, metoprolol, lisinopril, isosorbide mononitrate monitor Malnutrition Dietitian consult DVT Px Heparin SQ Code Status Full code Disposition Plan to discharge home as able Admission and Anticipated Discharge Date Admission Date: June 04, 2024 Subjective Patient is seen and examined at bedside Was mildly delirious overnight per staff Abdominal pain resolved Still has minimal cough Calcium levels normalized Denies any chest pain, dyspnea, nausea, vomiting Had bowel movement today Review of Systems Review of Systems: All systems reviewed & are unremarkable except as noted in Subjective Physical Exam Physical Exam: Physical Exam: Vitals signs as noted above General Appearance: Thin, frail, elderly, no apparent distress Head: normocephalic, Atraumatic Eyes: normal inspection, EOMI Neck: supple, Trachea midline Respiratory/Chest: Decreased breath sounds, CTA, No accessory muscle use Cardiovascular: S1, S2, No murmur Abdomen/GI:Soft, Non tender, Bowel sounds present Extremities/Musculoskeletal:normal inspection, no edema Neurologic/Psych:AAOX3, grossly no focal neurological deficits Skin: normal color, warm Results & Data Results & Data Vital Signs (Past 12 Hours) Vital Signs Temp Pulse Pulse Resp BP Pulse Ox O2 Del Method 06/06/24 15:34 75 06/06/24 11:32 36.6 C 78 18 133/69 93 Room Air 06/06/24 07:37 36.3 C L 85 18 155/71 H 93 Room Air 06/06/24 07:33 84 06/06/24 05:04 36.6 C 85 17 160/81 H 93 Room Air Laboratory Results Short CBC 06/06/24 Range/Units 06:05 WBC 7.19 (4.8-10.8) K/ul Hgb 11.6 L (12.0-16.0) g/dl Hct 33.7 L (37.0-47.0) % Plt Count 292 (130-400) K/uL BMP 06/06/24 06:05 Sodium 133 L Potassium 3.0 L Chloride 101 Carbon Dioxide 22 BUN 23 Creatinine 0.91 Glucose 98 Calcium 9.2
[2024-06-06] MEDS ORDERED: POTASSIUM CHLORIDE CRTAB 20 MEQ TABCR PO ONE (16:00)
[2024-06-06] MEDS: POTASSIUM CHLORIDE CRTAB 20 MEQ TABCR PO SCH (21:11)
[2024-06-06] MEDS: ACETAMINOPHEN 325 MG TAB PO PRN (22:37)
[2024-06-07 06:28] LABS: BUN Creatinine Ratio 26.7 (10-20); Calcium 8.7 mg/dl (8.6-10.3); Est GFR (African American) 75.5 ml/min; Est GFR (Non-African American) 65.2 ml/min; Magnesium 1.8 mg/dl (1.7-2.4); Potassium 4.1 mmol/L (3.5-5.1)
[2024-06-07 07:15] VITALS: RESP 18; TEMP 97.9; O2SAT 95
--- NOTE | 2024-06-07 08:49 | Hospitalist Progress Note ---
Date of Service June 07, 2024 Assessment & Plan (1) Enteritis: Plan: 79-year-old female with past medical history significant for dyslipidemia, prediabetes, COPD, was on oxygen last year for few months but currently not on any oxygen at home, pulmonary Cachexia due to chronic obstructive pulmonary disease, hiatal hernia, multiple lung nodules, seasonal allergic rhinitis, renal artery stenosis, mesenteric artery stenosis, iliac artery stenosis bilateral, hypertension, CAD, history of abdominal aortic aneurysm, GERD, dysphagia, CKD stage III, restless leg syndrome, anemia and due to chronic kidney disease, DEVAN, tobacco use disorder, mild cognitive impairment, BMI less than 19 who lives at home with her daughter ambulates without support comes because of abdominal pain going on for last 4 days. Patient states also having severe abdominal pain for last 4 days not getting better so she came to the ER. Was also nauseous. Received Zofran in the ER. Currently nausea improved. Currently abdominal pain is much better. Did not move her bowels for last 4 days. Micturating less. Denies any chest pain or shortness of breath. No cough. No fevers. No headache. No runny nose or sore throat. Did not eat much last few days. Currently resting comfortably and hemodynamically stable., Somewhat hard to hear. Abdominal pain ? Secondary to constipation CT abdomen showing mild enteritis Will obtain stool studies if develops diarrhea Received IV fluids Had BMS, tolerated regular diet Resolved Community-acquired pneumonia --CXR:A few patchy right lower lobe opacities which favor a mild infectious process. -- Elevated procalcitonin --BioFire negative -Empirically started on Rocephin, doxycycline Saturating well on room air Transition to oral antibiotics on discharge Abdominal aortic aneurysm --CT: Infrarenal abdominal aortic aneurysm, measures 7.0 x 3.3 x 4.1 cm. This has increased in size when compared to July 10, 2023 -- Appreciate vascular surgery input: No surgical intervention needed at this time -- Needs follow-up with outpatient vascular surgery on discharge Constipation Continue bowel regimen Monitor Acute on Chronic Hyponatremia Sodium 124>128>133> 134 Likely multifactorial: SIADH, poor nutritional status, high fluid intake -- Received IV fluids Continue fluid restriction as well Appreciate nephrology input Hypercalcemia Calcium 12.6>8.7 Likely secondary to Tums Hold calcium supplements Received IV fluids Monitor calcium levels Resolved, Monitor Hypokalemia Hypomagnesemia Replete electrolytes as needed Monitor COPD Continue home inhalers Pulmonary cachexia due to COPD Dietitian consult H/O Multiple lung nodules There is a follow-up CT scan this month 06/07 as per PCP notes CKD III Cr at baseline Monitor H/O CAD Continue statin, fenofibrate, Imdur, metoprolol, aspirin GERD PPI and famotidine Prediabetes HbA1c 5.6 Generalized anxiety disorder On Remeron buspirone and Zoloft Hypertension On amlodipine, metoprolol, lisinopril, isosorbide mononitrate monitor Malnutrition Dietitian consult DVT Px Heparin SQ Code Status Full code Disposition Home Admission and Anticipated Discharge Date Admission Date: June 04, 2024 Subjective Patient is seen and examined at bedside States feeling well today Offers no new complaints Denies any chest pain, dyspnea, nausea, vomiting, abd pain Plan to be discharged home today Review of Systems Review of Systems: All systems reviewed & are unremarkable except as noted in Subjective Physical Exam Physical Exam: Physical Exam: Vitals signs as noted above General Appearance: Thin, frail, elderly, no apparent distress Head: normocephalic, Atraumatic Eyes: normal inspection, EOMI Neck: supple, Trachea midline Respiratory/Chest: Decreased breath sounds, CTA, No accessory muscle use Cardiovascular: S1, S2, No murmur Abdomen/GI:Soft, Non tender, Bowel sounds present Extremities/Musculoskeletal:normal inspection, no edema Neurologic/Psych:AAOX3, grossly no focal neurological deficits Skin: normal color, warm Results & Data Results & Data Vital Signs (Past 12 Hours) Vital Signs Temp Pulse Pulse Resp BP Pulse Ox O2 Del Method 06/07/24 07:29 80 06/07/24 07:15 36.6 C 71 18 103/66 95 Room Air 06/07/24 03:14 36.8 C 70 14 132/66 96 Room Air 06/06/24 23:59 36.5 C 67 14 128/64 95 Room Air 06/06/24 23:57 73 Laboratory Results [facility] 06/07/24 05:30 Sodium 134 L Potassium 4.1 D Chloride 106 Carbon Dioxide 23 BUN 23 Creatinine 0.86 Glucose 89 Calcium 8.7
[2024-06-07 10:42] VITALS: BP 136/69; PULSE 77
[2024-06-07] MEDS: POTASSIUM CHLORIDE CRTAB 20 MEQ TABCR PO SCH (11:14)
[2024-06-07] MEDS: cefUROXime axetil 500 MG TAB PO SCH (11:41)
--- NOTE | 2024-06-07 13:12 | Discharge Summary ---
Date of Service June 07, 2024 Admission HPI Per Admitting Provider 79-year-old female with past medical history significant for dyslipidemia, prediabetes, COPD, was on oxygen last year for few months but currently not on any oxygen at home, pulmonary Cachexia due to chronic obstructive pulmonary disease, hiatal hernia, multiple lung nodules, seasonal allergic rhinitis, renal artery stenosis, mesenteric artery stenosis, iliac artery stenosis bilateral, hypertension, CAD, history of abdominal aortic aneurysm, GERD, dysphagia, CKD stage III, restless leg syndrome, anemia and due to chronic kidney disease, DEVAN, tobacco use disorder, mild cognitive impairment, BMI less than 19 who lives at home with her daughter ambulates without support comes because of abdominal pain going on for last 4 days. Patient states also having severe abdominal pain for last 4 days not getting better so she came to the ER. Was also nauseous. Received Zofran in the ER. Currently nausea improved. Currently abdominal pain is much better. Did not move her bowels for last 4 days. Micturating less. Denies any chest pain or shortness of breath. No cough. No fevers. No headache. No runny nose or sore throat. Did not eat much last few days. Currently resting comfortably and hemodynamically stable., Somewhat hard to hear. Past medical history. As mentioned above Past surgical history. EGD. Laparoscopic cholecystectomy. Punctured drainage of the right breast cyst. Appendectomy. Tonsillectomy. Social history. . Living with her daughter. Smokes 1 pack a day for last 50 years. No alcohol use. No drug use. Family history. Brother had COPD. Father had diabetes. Hypertension. Tumor in colon. Brother had lung cancer. Mother had heart disorder. Scarlet fever as a child. Admission Exam Per Admitting Provider General- Not in distress.Cachectic appearing Head- atraumatic Eyes- PERRL. ENT- oropharynx clear Neck- supple, no JVD. Lungs- clear to auscultation no wheezing or crackles. Heart- regular rhythm; no murmur, no gallop. Abdomen- normal bowel sounds, soft, nontender, no distension Extremities- no pretibial edema, no erythema seen. Neuro- alert, oriented PERRL, no facial palsy; no dysarthria; moves extremities Principal Diagnosis Constipation Community-acquired pneumonia Abdominal aortic aneurysm Hyponatremia Hypercalcemia Hypokalemia Hypomagnesemia Discharge Data Allergies Allergy/AdvReac Type Severity Reaction Status Date / Time No Known Allergies Allergy Unverified 07/10/23 19:06 Consultations 06/04/24 08:24 Consult Nephrology Routine Consult Vascular Surgery Routine Procedures Performed [facility] 06/07/24 05:30 Sodium 134 L Potassium 4.1 D Chloride 106 Carbon Dioxide 23 BUN 23 Creatinine 0.86 Glucose 89 Calcium 8.7 Ordered Studies 06/03/24 23:13 CT Abd and Pelvis [CT abd pelvis IV con only] Stat Hospital Course (1) Enteritis: 79-year-old female with past medical history significant for dyslipidemia, prediabetes, COPD, was on oxygen last year for few months but currently not on any oxygen at home, pulmonary Cachexia due to chronic obstructive pulmonary disease, hiatal hernia, multiple lung nodules, seasonal allergic rhinitis, renal artery stenosis, mesenteric artery stenosis, iliac artery stenosis bilateral, hypertension, CAD, history of abdominal aortic aneurysm, GERD, dysphagia, CKD stage III, restless leg syndrome, anemia and due to chronic kidney disease, DEVAN, tobacco use disorder, mild cognitive impairment, BMI less than 19 who lives at home with her daughter ambulates without support comes because of abdominal pain going on for last 4 days. Patient states also having severe abdominal pain for last 4 days not getting better so she came to the ER. Was also nauseous. Received Zofran in the ER. Currently nausea improved. Currently abdominal pain is much better. Did not move her bowels for last 4 days. Micturating less. Denies any chest pain or shortness of breath. No cough. No fevers. No headache. No runny nose or sore throat. Did not eat much last few days. Currently resting comfortably and hemodynamically stable., Somewhat hard to hear. Abdominal pain ? Secondary to constipation CT abdomen showing mild enteritis Will obtain stool studies if develops diarrhea Received IV fluids Had BMS, tolerated regular diet Resolved Community-acquired pneumonia --CXR:A few patchy right lower lobe opacities which favor a mild infectious process. -- Elevated procalcitonin --BioFire negative -Empirically started on Rocephin, doxycycline Saturating well on room air Transition to oral antibiotics on discharge Abdominal aortic aneurysm --CT: Infrarenal abdominal aortic aneurysm, measures 7.0 x 3.3 x 4.1 cm. This has increased in size when compared to July 10, 2023 -- Appreciate vascular surgery input: No surgical intervention needed at this time -- Needs follow-up with outpatient vascular surgery on discharge Constipation Continue bowel regimen Monitor Acute on Chronic Hyponatremia Sodium 124>128>133> 134 Likely multifactorial: SIADH, poor nutritional status, high fluid intake -- Received IV fluids Continue fluid restriction as well Appreciate nephrology input Hypercalcemia Calcium 12.6>8.7 Likely secondary to Tums Hold calcium supplements Received IV fluids Monitor calcium levels Resolved, Monitor Hypokalemia Hypomagnesemia Replete electrolytes as needed Monitor COPD Continue home inhalers Pulmonary cachexia due to COPD Dietitian consult H/O Multiple lung nodules There is a follow-up CT scan this month 06/07 as per PCP notes CKD III Cr at baseline Monitor H/O CAD Continue statin, fenofibrate, Imdur, metoprolol, aspirin GERD PPI and famotidine Prediabetes HbA1c 5.6 Generalized anxiety disorder On Remeron buspirone and Zoloft Hypertension On amlodipine, metoprolol, lisinopril, isosorbide mononitrate monitor Malnutrition Dietitian consult DVT Px Heparin SQ Code Status Full code Disposition Home Total Time Total Time Spent Total Time Spent (In Minutes): 41 minutes Discharge Plan Discharge Items Patient Disposition: Home - Self-Care Reason For Visit: abdominal pain, hyponatremia, hypercalcemia, AAA Discharge Diagnosis: Constipation Community-acquired pneumonia Abdominal aortic aneurysm Hyponatremia Hypercalcemia Hypokalemia Hypomagnesemia Activity: Per Instructions section Exercise/Sports: Gradually increase as tolerated Non-emergency contact: Primary Care Provider and Surgeon Call non-emergency contact if: you have any medication questions, your symptoms worsen, your pain is concerning for you and you have a fever Follow-up/Referrals: Phi Kyle DO [Primary Care Provider] - Diet: Carb Consistent or DM2 Fluids: 2000ml (8 cups) Addtl Attending Provider Instructions: Follow-up with your primary care physician in 1 week. Please call for appointment Follow-up with your vascular surgeon for further evaluation of abdominal aortic aneurysm as advised. -- Complete the antibiotic course cefuroxime, doxycycline as prescribed. --Get blood work(basic metabolic panel, magnesium) in 1 week and follow-up with your physician for further instructions. Seek immediate medical attention if your symptoms reoccur or worsen Please take all medications as instructed on discharge list below. Please call if you have any questions or problems. You can reach a [facility] hospitalist on duty at [facility] 24 hours a day by calling [phone] Pending Studies at Discharge: No Stand-Alone Forms: My [facility], Smoking Cessation Medications and DC Order Prescriptions: New doxycycline hyclate 100 mg Capsule 100 mg PO BID Qty: 7 0RF cefuroxime axetil 500 mg Tablet 500 mg PO BID Qty: 7 0RF magnesium chloride [Mag 64] 64 mg Tablet,Delayed Release (Dr/Ec) 64 mg PO BID Qty: 20 0RF potassium chloride 20 mEq Tablet,Er Particles/Crystals 20 meq PO DAILY Qty: 10 0RF docusate sodium 100 mg Capsule 100 mg PO BID PRN (Reason: constiaption ) Qty: 30 0RF polyethylene glycol 3350 [Miralax] 17 gram Powder In Packet 17 g PO DAILY PRN (Reason: constipation) Qty: 30 0RF Continued atorvastatin 40 mg tablet 40 mg PO DAILY lisinopril 20 mg tablet 20 mg PO DAILY isosorbide mononitrate 30 mg tablet extended release 24 hr 30 mg PO DAILY sertraline 100 mg tablet 100 mg PO DAILY famotidine 20 mg tablet 20 mg PO DAILY amlodipine 10 mg tablet 10 mg PO DAILY buspirone 10 mg tablet 5 mg PO BID omeprazole 20 mg capsule,delayed release(DR/EC) 40 mg PO DAILY montelukast 10 mg tablet 10 mg PO DAILY mirtazapine 15 mg tablet 15 mg PO HS gabapentin 100 mg capsule 100 mg PO BID albuterol sulfate 90 mcg/actuation HFA aerosol inhaler 2 puff INHALATION Q6H PRN (Reason: Shortness Of Breath Or Wheezing) metoprolol tartrate 25 mg tablet 25 mg PO BID fenofibrate nanocrystallized 145 mg tablet 145 mg PO DAILY icosapent ethyl 1 gram capsule 2 g PO BID Trelegy Ellipta 200-62.5-25 mcg blister with device 1 inh INHALATION DAILY calcium carbonate-vit D3-min 600 mg calcium- 400 unit Tablet 1 tab PO DAILY Rx Instructions: patient taking calcium -vitamin d-minerals 600-800 mg -unit tab aspirin 81 mg Tablet,Delayed Release (Dr/Ec) 81 mg PO DAILY Discharge Orders: Discharge Order (Routine); Ordered 06/07/24 Ordered By: Brendan Villeda Admission Data Admit Date/Time: 06/04/24 05:32 Attending Provider: Brendan Villeda Admit Provider: Adama Gates Primary Care Provider: Phi Kyle Other Providers: Anamaria Dao; Saud Ashotn; Ralf Fonseca; Andres Sands; Nathalia Merritt; Toby Baugh Other Interventions: Discharge Summary Assessment (RN) Last Done: 06/07/24 10:41
== END 2024-06-07 12:16 | disposition home or self-care (01) | DRG 391 ==
LOC: ED 21:28 → EDINP 06-04 05:32 → 2S 06-04 16:27

== ENCOUNTER 2025-03-03 00:30 | Inpatient (IN) ==
[2025-03-03 02:28] LABS: Basophils # (auto) 0.01 K/uL (0.00-0.20); Basophils % (auto) 0.1 %; Hematocrit (blood only) 32.5 % (37.0-47.0); Hemoglobin 11.9 g/dl (12.0-16.0); Immature Granulocytes # (auto) 0.07 K/uL (0.01-0.20); Lymphocytes # (auto) 0.84 K/uL (1.20-3.40); Lymphocytes % (auto) 11.7 %; Mean Corpuscular Hemoglobin 30.5 pg (25.0-34.0); Mean Corpuscular Hgb Conc 36.6 g/dL (32.0-36.0); Mean Corpuscular Volume 83.3 fL (80.0-100.0); Mean Platelet Volume 8.3 fL (9.4-12.4); Monocytes # (auto) 0.12 K/uL (0.11-0.59); Monocytes % (auto) 1.7 %; Neutrophils # (auto) 6.13 K/uL (1.40-6.50); Neutrophils % (auto) 85.5 %; Platelet Count 350 K/uL (130-400); RDW Coefficient of Variation 12.8 % (11.5-14.5); White Blood Count 7.17 K/ul (4.8-10.8)
[2025-03-03] MEDS ORDERED: POLYETHYLENE (MIRALAX) 17 GM PACK PO PRN (02:30)
[2025-03-03] MEDS ORDERED: ALBUT/IPRATROP 3MG/0.5MG NEB 3 ML VIAL NEB PRN (02:30)
[2025-03-03] MEDS ORDERED: NITROGLYCERIN SL 0.4 MG/TAB TAB SL PRN (02:30)
[2025-03-03 02:47] LABS: Albumin Globulin Ratio 1.4 (0.9-2); Albumin Level 4.2 gm/dl (3.4-5.0); Bilirubin,Total 0.4 mg/dl (0.2-1.0); Calcium 8.9 mg/dl (8.6-10.3); Creatinine Clr Calc Pharmacy 29.1 ml/min; Magnesium 1.8 mg/dl (1.7-2.4); Potassium 4.1 mmol/L (3.5-5.1); Total Protein 7.2 gm/dl (6.0-8.3)
[2025-03-03 02:54] LABS: Troponin I High Sensitivity 17.8 pg/ml (0-14)
[2025-03-03 02:56] LABS: Partial Thromboplastin Time 26 Seconds (21-31); Prothrombin Time 11.3 Seconds (9.0-12.0)
--- NOTE | 2025-03-03 03:02 | History & Physical Report ---
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, multiple lung nodules, hiatal hernia, seasonal allergic rhinitis, renal artery stenosis, mesenteric artery stenosis, iliac artery stenosis bilateral, abdominal aortic aneurysm, hypertension, history of CAD, severe protein calorie moderation, GERD, dysphagia, CKD stage III, restless leg syndrome, lumbar degenerative disease, anemia due to CKD stage III, general anxiety disorder, tobacco use disorder, mild cognitive disorder., ambulates with a cane and lives with her daughter went to [facility] because of nausea vomiting and abdominal pain going for last 10 days and was found to have pneumonia, COPD exacerbation and hyponatremia and was transferred here for further care. Patient says for last 10 days she is having lot of nausea and vomiting and not able to eat anything. Associated with abdominal pain. Currently abdominal pain resolved. Having some diarrhea with black stools. Micturating okay. Denies any fevers. Having cough and bringing some phlegm. Denies any chest pain or shortness of breath. No headache. Sometimes feels dizzy associated with some double vision when she stands up quickly and and then resolves. Currently resting comfortably saturating okay on room air and hemodynamically stable. Marleni went to [facility] and was found to have some wheezing. Somewhat tachypneic and heart rates was 90s. EKG was okay. Has elevated WBC, hemoglobin was okay. Alert and oriented. Glucose was 132. Sodium was 119. K was 2.9. D-dimer was elevated at 1200. CTA chest no PE . CXR showed right lower lung pneumonia. She got 1 L of fluids before sodium was checked. [facility] had talked with the nephrology on-call and was advised for urine studies and also close follow-up of the labs and patient was placed on maintenance fluids. Initial recheck sodium went to 118 and repeat recheck sodium went to 120 before she was transferred here. Hyponatremia Initially presented to have an sodium of 119 After 1 L of fluids it was dropped to 118 Patient was placed on maintenance fluids Repeat sodium before transfer was 120 Sodium here is 124 Placed on D5 water at rate of 80 mL/h for now Will follow BMP every 4 hours Will check serum osmolality, urine osmolality and urine sodium levels Close monitoring telemetry Nephrology consult for further recommendations Nausea vomiting and abdominal pain CT abdomen pelvis with IV contrast done at [facility] shows infrarenal abdominal aortic aneurysm craniocaudal length of approximately 6.9 cm in transverse diameter up to 4.2 cm and also ascending thoracic aortic measures 3.3cm No other findings Patient also has mesenteric stenosis >70% and celiac stenosis follows with vascular surgery no indications for operative intervention per vascular surgery Her on and off diarrhea could be related to mesenteric stenosis per Vascular surgery Will check stool studies. tool for hemeoccult Consult GI for any further recommendations Pneumonia Right lower lobe pneumonia on chest x-ray On the CAT scan no obvious pneumonia Empiric Rocephin and doxycycline COPD Currently seems stable Will place on DuoNebs in the clock and as needed and continue home inhalers Will monitor Abdominal aortic aneurysm As mentioned above. Asked images to be transferred to our facility. Celiac and mesenteric stenosis Carotid stenosis CAn review images with vascular surgery on aspirin and statin CKD stage III Creatinine 0.8 Will follow labs Mild elevation of troponin Mostly demand ischemia Will follow serial cardiac enzymes Hypertension On lisinopril Imdur and metoprolol To check with patient if she is still on amlodipine Will monitor Depression On Zoloft, Remeron and BuSpar Meds be causing hyponatremia GERD Omeprazole and famotidine Hyperlipidemia Statin Tobacco abuse Needs counseling Malnutrition Dietitian consult DVT prophylaxis Heparin subcu follow stool for hemeoccult Disposition Telemetry Full code. Admission and Anticipated Discharge Date Admission Date: March 03, 2025 History of Present Illness Chief Complaint: Hyponatremia and pneumonia Primary Care Provider: Phi Kyle DO 79-year-old female with past med significant for SIADH, dyslipidemia, prediabetes, COPD, pulmonary cachexia due to chronic COPD, multiple lung nodules, hiatal hernia, seasonal allergic rhinitis, renal artery stenosis, mesenteric artery stenosis, iliac artery stenosis bilateral, abdominal aortic aneurysm, hypertension, history of CAD, severe protein calorie moderation, GERD, dysphagia, CKD stage III, restless leg syndrome, lumbar degenerative disease, anemia due to CKD stage III, general anxiety disorder, tobacco use disorder, mild cognitive disorder., ambulates with a cane and lives with her daughter went to [facility] because of nausea vomiting and abdominal pain going for last 10 days and was found to have pneumonia, COPD exacerbation and hyponatremia and was transferred here for further care. Patient says for last 10 days she is having lot of nausea and vomiting and not able to eat anything. Associated with abdominal pain. Currently abdominal pain resolved. Having some diarrhea with black stools. Micturating okay. Denies any fevers. Having cough and bringing some phlegm. Denies any chest pain or shortness of breath. No headache. Sometimes feels dizzy associated with some double vision when she stands up quickly and and then resolves. Currently resting comfortably saturating okay on room air and hemodynamically stable. Marleni went to [facility] and was found to have some wheezing. Somewhat tachypneic and heart rates was 90s. EKG was okay. Has elevated WBC, hemoglobin was okay. Alert and oriented. Glucose was 132. Sodium was 119. K was 2.9. D-dimer was elevated at 1200. CTA chest no PE . CXR showed right lower lung pneumonia. She got 1 L of fluids before sodium was checked. [facility] had talked with the nephrology on-call and was advised for urine studies and also close follow-up of the labs and patient was placed on maintenance fluids. Initial recheck sodium went to 118 and repeat recheck sodium went to 120 before she was transferred here. Past medical history. As mentioned above Past surgical history. EGD. Laparoscopic cholecystectomy. Right breast cyst drainage. Appendectomy. Tonsillectomy. Social history. . Smokes 1 pack a day for last 50 years. No alcohol currently. No drug use. Family history. Brother had COPD. Father had diabetes. Hypertension. Tumor in colon. Mother had valvular heart disease. Brother had lung cancer. Allergies Allergy/AdvReac Type Severity Reaction Status Date / Time No Known Allergies Allergy Unverified 07/10/23 19:06 Home Medications Medication Instructions Recorded Confirmed Type albuterol sulfate 90 mcg/actuation 2 puff inhalation Q6H PRN 06/04/24 03/03/25 History aerosol inhaler Shortness Of Breath Or Wheezing amlodipine 10 mg tablet 10 mg PO DAILY 06/04/24 06/04/24 History aspirin 81 mg tablet,delayed 81 mg PO DAILY 06/04/24 03/03/25 History release atorvastatin 40 mg tablet 40 mg PO DAILY 06/04/24 03/03/25 History buspirone 10 mg tablet 5 mg PO BID 06/04/24 03/03/25 History calcium 600 mg (as carbonate)-vit 1 tab PO DAILY 06/04/24 03/03/25 History D3 10 mcg (400 unit)-minerals tablet famotidine 20 mg tablet 20 mg PO DAILY 06/04/24 03/03/25 History fenofibrate nanocrystallized 145 145 mg PO DAILY 06/04/24 03/03/25 History mg tablet fluticasone fur. 200 mcg-umeclid 1 inh inhalation DAILY 06/04/24 03/03/25 History 62.5 mcg-vilant 25 mcg inhalat.powder (Trelegy Ellipta) gabapentin 100 mg capsule 100 mg PO BID 06/04/24 03/03/25 History icosapent ethyl 1 gram capsule 2 g PO BID 06/04/24 06/04/24 History isosorbide mononitrate 30 mg 30 mg PO DAILY 06/04/24 03/03/25 History tablet,extended release 24 hr lisinopril 20 mg tablet 20 mg PO DAILY 06/04/24 03/03/25 History metoprolol tartrate 25 mg tablet 25 mg PO BID 06/04/24 03/03/25 History mirtazapine 15 mg tablet 15 mg PO HS 06/04/24 03/03/25 History montelukast 10 mg tablet 10 mg PO DAILY 06/04/24 06/04/24 History omeprazole 20 mg capsule,delayed 40 mg PO DAILY 06/04/24 03/03/25 History release sertraline 100 mg tablet 100 mg PO DAILY 06/04/24 03/03/25 History cefuroxime axetil 500 mg tablet 500 mg PO BID #7 tabs 06/07/24 Rx docusate sodium 100 mg capsule 100 mg PO BID PRN constiaption 06/07/24 03/03/25 Rx #30 caps doxycycline hyclate 100 mg capsule 100 mg PO BID #7 caps 06/07/24 Rx magnesium chloride 64 mg 64 mg PO BID #20 tabs 06/07/24 03/03/25 Rx (magnesium chloride) tablet,delayed release (Mag 64) potassium chloride 20 mEq 20 meq PO DAILY #10 tabs 06/07/24 03/03/25 Rx tablet,extended release(part/cryst) Past Med/Surg History Problem List AAA (abdominal aortic aneurysm) without rupture (Acute) Acute hyponatremia (Acute) Hypercalcemia (Acute) Enteritis (Acute) Lower abdominal pain (Acute) Acute hypoxemic respiratory failure Sepsis (Acute) Pneumonia (Acute) Leukocytosis (Acute) Hypoxia (Acute) Hypertension JAMARI (acute kidney injury) Hyponatremia COPD exacerbation UTI (urinary tract infection) (Acute) Pneumonia (Acute) Hypokalemia (Acute) Anxiety (Chronic) GERD (gastroesophageal reflux disease) (Chronic) Dyslipidemia (Chronic) COPD (chronic obstructive pulmonary disease) (Chronic) RLS (restless legs syndrome) (Chronic) Hx of cholecystectomy (Chronic) History of appendectomy (Chronic) Hx of tonsillectomy (Chronic) Tobacco consumption Family History Other Diabetes Family history non-contributory Heart disease Social History Smoking Status: Current every day smoker Tobacco Type: Cigarettes Cigarettes Per Day: x1 pack; Hx Alcohol Use: No Hx Substance Use: No Preferred Language: Tamaz[place] Communication Ability: Effective 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 Lungs- clear to auscultation no wheezing or crackles Heart- regular rhythm; no murmur, no gallop. Abdomen- normal bowel sounds, soft, nontender, no distension. Extremities- no pretibial edema, no erythema seen Neuro- alert, oriented , EOMI; no facial palsy; no dysarthria; moves extremities Results & Data Results & Data Vital Signs (Past 12 Hours) Vital Signs Temp Pulse Resp BP Pulse Ox O2 Del Method 03/03/25 02:04 36.5 C 75 18 129/65 95 Room Air Diagnostic Findings Laboratory Results WBC 7.17 K/ul (4.8-10.8) 03/03/25 02:12 RBC 3.90 M/uL (4.20-5.40) L 03/03/25 02:12 Hgb 11.9 g/dl (12.0-16.0) L 03/03/25 02:12 Hct 32.5 % (37.0-47.0) L 03/03/25 02:12 MCV 83.3 fL (80.0-100.0) 03/03/25 02:12 MCH 30.5 pg (25.0-34.0) 03/03/25 02:12 MCHC 36.6 g/dL (32.0-36.0) H 03/03/25 02:12 RDW Std Deviation 39.0 fL (36.4-46.3) 03/03/25 02:12 RDW Coeff of Carlos Manuel 12.8 % (11.5-14.5) 03/03/25 02:12 Plt Count 350 K/uL (130-400) 03/03/25 02:12 MPV 8.3 fL (9.4-12.4) L 03/03/25 02:12 Immature Gran % (Auto) 1.0 % 03/03/25 02:12 Neut % (Auto) 85.5 % 03/03/25 02:12 Lymph % (Auto) 11.7 % 03/03/25 02:12 Bullitt % (Auto) 1.7 % 03/03/25 02:12 Eos % (Auto) 0.0 % 03/03/25 02:12 Baso % (Auto) 0.1 % 03/03/25 02:12 Neut # (Auto) 6.13 K/uL (1.40-6.50) 03/03/25 02:12 Lymph # (Auto) 0.84 K/uL (1.20-3.40) L 03/03/25 02:12 Bullitt # (Auto) 0.12 K/uL (0.11-0.59) 03/03/25 02:12 Eos # (Auto) 0.00 K/uL (0.00-0.50) 03/03/25 02:12 Baso # (Auto) 0.01 K/uL (0.00-0.20) 03/03/25 02:12 Immature Gran # (Auto) 0.07 K/uL (0.01-0.20) 03/03/25 02:12 PT 11.3 Seconds (9.0-12.0) 03/03/25 02:12 INR 1.0 (0.9-1.1) 03/03/25 02:12 APTT 26 Seconds (21-31) 03/03/25 02:12 PTT Ratio 1.0 03/03/25 02:12 Sodium 124 mmol/L (136-145) L 03/03/25 02:12 Potassium 4.1 mmol/L (3.5-5.1) 03/03/25 02:12 Chloride 93 mmol/L (98-107) L 03/03/25 02:12 Carbon Dioxide 21 mmol/L (21-32) 03/03/25 02:12 Anion Gap 10 (3-11) 03/03/25 02:12 BUN 15 mg/dl (6-23) 03/03/25 02:12 Creatinine 0.88 mg/dl (0.6-1.2) 03/03/25 02:12 Est Cr Clr Drug Dosing 29.1 ml/min 03/03/25 02:12 eGFR 67.64 03/03/25 02:12 BUN/Creatinine Ratio 17.0 (10-20) 03/03/25 02:12 Glucose 135 mg/dl (70-99(Fasting)) H 03/03/25 02:12 Osmolality 267 mOsm/kg (280-300) L 03/03/25 02:12 Calcium 8.9 mg/dl (8.6-10.3) 03/03/25 02:12 Magnesium 1.8 mg/dl (1.7-2.4) 03/03/25 02:12 Total Bilirubin 0.4 mg/dl (0.2-1.0) 03/03/25 02:12 AST 25 U/L (13-39) 03/03/25 02:12 ALT 17 U/L (7-52) 03/03/25 02:12 Alkaline Phosphatase 94 U/L (34-104) 03/03/25 02:12 Troponin I High Sens 17.8 pg/ml (0-14) H 03/03/25 02:12 Total Protein 7.2 gm/dl (6.0-8.3) 03/03/25 02:12 Albumin 4.2 gm/dl (3.4-5.0) 03/03/25 02:12 Globulin 3.0 gm/dl (2.5-4.0) 03/03/25 02:12 Albumin/Globulin Ratio 1.4 (0.9-2) 03/03/25 02:12 ECG Additional Comments: ECG. Normal sinus rhythm rate of 77. No significant change was found. Code Status & VTE Plan VTE Prophylaxis Plan VTE Prophylaxis will be ordered: Yes
[2025-03-03] MEDS: DEXTROSE 5% 1,000 ML IV SCH (03:31)
[2025-03-03] MEDS ORDERED: ALBUTEROL HFA 8 GM INHALER INH PRN (04:44)
[2025-03-03] MEDS ORDERED: DOCUSATE SODIUM 100 MG CAP PO PRN (04:44)
[2025-03-03 07:01] LABS: BUN Creatinine Ratio 16.3 (10-20); Calcium 8.4 mg/dl (8.6-10.3); Creatinine Clr Calc Pharmacy 32.1 ml/min; Potassium 3.8 mmol/L (3.5-5.1)
[2025-03-03 07:07] LABS: Troponin I High Sensitivity 16.2 pg/ml (0-14)
[2025-03-03] MEDS: ALBUT/IPRATROP 3MG/0.5MG NEB 3 ML VIAL NEB SCH (07:11)
[2025-03-03] MEDS: FLUTICASONE FUROATE 200MCG 14 PUFFS/INHALER INH SCH (08:45)
[2025-03-03] MEDS: UMECLIDINIUM/VILANTEROL 62.5/25MCG 7 PUFFS/INHALER INH SCH (08:45)
[2025-03-03] MEDS: ASPIRIN 81 MG ECTAB PO SCH (08:45)
[2025-03-03] MEDS: FENOFIBRATE NANOCRYSTALLIZED 145 MG TABLET PO SCH (08:46)
[2025-03-03] MEDS: ATORVASTATIN 40 MG TAB PO SCH (08:46)
[2025-03-03] MEDS: ISOSORBIDE MONO EXTENDED REL 30 MG TABCR PO SCH (08:46)
[2025-03-03] MEDS: CALCIUM 600MG + VIT D 400 IU TAB PO SCH (08:46)
[2025-03-03] MEDS: busPIRone 5 MG TAB PO SCH (08:46)
[2025-03-03] MEDS: PANTOprazole 40 MG TAB PO SCH (08:46)
[2025-03-03] MEDS: METOPROLOL TARTRATE 25 MG TAB PO SCH (08:46)
[2025-03-03] MEDS: GABAPENTIN 100 MG CAP PO SCH (08:46)
[2025-03-03] MEDS: lisinopril 20 MG TAB PO SCH (08:46)
[2025-03-03] MEDS: SERTRALINE HCL 100 MG TABLET PO SCH (08:46)
[2025-03-03] MEDS: MAGNESIUM CHLORIDE W/CALCIUM 64MG DELAYED REL TAB PO SCH (08:46)
[2025-03-03] MEDS: POTASSIUM CHLORIDE CRTAB 20 MEQ TABCR PO SCH ×2 (08:48→14:35)
[2025-03-03] MEDS: HEPARIN SOD 5,000 UNIT/0.5 ML VIAL SQ SCH (08:48)
[2025-03-03] MEDS: DOXYCYCLINE HYCLATE 100 MG in DEXTROSE 5% MINI-B 100 ML IV SCH (08:49)
[2025-03-03] MEDS: cefTRIAXone SODIUM 2,000 MG/50 ML BAG IV SCH (08:49)
[2025-03-03] MEDS: FAMOTIDINE 20 MG TAB PO SCH (08:51)
--- NOTE | 2025-03-03 10:22 | Nephrology Consultation ---
Date of Consultation March 03, 2025 Assessment & Plan (1) Acute hyponatremia: has h/o this from Underlying SIADH ( with Severe Cachexia-weighs 34 kilo and Underlying COPD). Currently Came in with Worsened Serum na --was 118 at [facility] and last one was 123. Cause was nausea and vomiting with Almost total lack of Solid food intake but was still drinking lot of liquids. this created a big mismatch and Caused Na to go lower. Also Nausea triggers more ADH release making her Na go lower. We will give her NS at 50ml/hr for volume and Salt load. But will also phoebe that with Iv lasix 20 mg iv q8hr to lower urine osm and cause aquaresis. Given her nausea and vomiting will try to mange without urea-na. just had BMP done. will decide further management after the results. FFR 1000 ml. If na > 125 will change it to bid labs. (2) Nausea & vomiting: Much better now. 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, multiple lung nodules, hiatal hernia, seasonal allergic rhinitis, renal artery stenosis, mesenteric artery stenosis, iliac artery stenosis bilateral, abdominal aortic aneurysm, hypertension, history of CAD, severe protein calorie moderation, GERD, dysphagia, CKD stage III, restless leg syndrome, lumbar degenerative disease, anemia due to CKD stage III, general anxiety disorder, tobacco use disorder, mild cognitive disorder., ambulates with a cane and lives with her daughter went to [facility] because of nausea vomiting and abdominal pain going for last 10 days and was found to have pneumonia, COPD exacerbation and hyponatremia and was transferred here for further care. Patient says for last 10 days she was having lot of nausea and vomiting and not able to eat anything. However was still drinking lot of water. Having some diarrhea with black stools. Micturating okay. Denies any fevers. Having cough and bringing some phlegm. Denies any chest pain or shortness of breath. No headache. Sometimes feels dizzy associated with some double vision when she stands up quickly and and then resolves. Currently resting comfortably saturating okay on room air and hemodynamically stable. Sodium was 119. K was 2.9. D-dimer was elevated at 1200. CTA chest no PE . CXR showed right lower lung pneumonia. She got 1 L of fluids-NS before sodium was checked. [facility] had talked with the nephrology on-call and was advised for urine studies and also close follow-up of the labs and patient was placed on maintenance fluids. Initial recheck sodium went to 118 and repeat recheck sodium went to 120 after which she was transferred to [facility]--here Na 124 and then it was 123. Currently no Iv fluids and last na was 123. urine osm is high and not appropriate. urine na also high. BP is high currently. She does have h/o Low Na in the past also. ROS--see HPI. 12 Systems reviewed and negative Physical Exam Physical Exam: General- Not in distress. very Thin and frail. Normal accurate Speech MM--moist. Neck- supple, no JVD. Lungs- clear to auscultation . Prolonged wheezing Heart- regular rhythm; no murmur Abdomen- soft, nontender Extremities- no edema Neuro- alert, oriented Allergies Allergy/AdvReac Type Severity Reaction Status Date / Time No Known Allergies Allergy Unverified 07/10/23 19:06 Home Medications Medication Instructions Recorded Confirmed Type albuterol sulfate 90 mcg/actuation 2 puff inhalation Q6H PRN 06/04/24 03/03/25 History aerosol inhaler Shortness Of Breath Or Wheezing amlodipine 10 mg tablet 10 mg PO DAILY 06/04/24 06/04/24 History aspirin 81 mg tablet,delayed 81 mg PO DAILY 06/04/24 03/03/25 History release atorvastatin 40 mg tablet 40 mg PO DAILY 06/04/24 03/03/25 History buspirone 10 mg tablet 5 mg PO BID 06/04/24 03/03/25 History calcium 600 mg (as carbonate)-vit 1 tab PO DAILY 06/04/24 03/03/25 History D3 10 mcg (400 unit)-minerals tablet famotidine 20 mg tablet 20 mg PO DAILY 06/04/24 03/03/25 History fenofibrate nanocrystallized 145 145 mg PO DAILY 06/04/24 03/03/25 History mg tablet fluticasone fur. 200 mcg-umeclid 1 inh inhalation DAILY 06/04/24 03/03/25 History 62.5 mcg-vilant 25 mcg inhalat.powder (Trelegy Ellipta) gabapentin 100 mg capsule 100 mg PO BID 06/04/24 03/03/25 History icosapent ethyl 1 gram capsule 2 g PO BID 06/04/24 06/04/24 History isosorbide mononitrate 30 mg 30 mg PO DAILY 06/04/24 03/03/25 History tablet,extended release 24 hr lisinopril 20 mg tablet 20 mg PO DAILY 06/04/24 03/03/25 History metoprolol tartrate 25 mg tablet 25 mg PO BID 06/04/24 03/03/25 History mirtazapine 15 mg tablet 15 mg PO HS 06/04/24 03/03/25 History montelukast 10 mg tablet 10 mg PO DAILY 06/04/24 06/04/24 History omeprazole 20 mg capsule,delayed 40 mg PO DAILY 06/04/24 03/03/25 History release sertraline 100 mg tablet 100 mg PO DAILY 06/04/24 03/03/25 History cefuroxime axetil 500 mg tablet 500 mg PO BID #7 tabs 06/07/24 Rx docusate sodium 100 mg capsule 100 mg PO BID PRN constiaption 06/07/24 03/03/25 Rx #30 caps doxycycline hyclate 100 mg capsule 100 mg PO BID #7 caps 06/07/24 Rx magnesium chloride 64 mg 64 mg PO BID #20 tabs 06/07/24 03/03/25 Rx (magnesium chloride) tablet,delayed release (Mag 64) potassium chloride 20 mEq 20 meq PO DAILY #10 tabs 06/07/24 03/03/25 Rx tablet,extended release(part/cryst) Patient History Family History Other Diabetes Family history non-contributory Heart disease Social History Smoking Status: Current every day smoker Tobacco Type: Cigarettes Cigarettes Per Day: x1 pack; Hx Alcohol Use: No Hx Substance Use: No Preferred Language: Indonesian Communication Ability: Effective Card Processing Clerk Required: No Beliefs That Will Affect Care: None Current Living Situation: Family Current Living Situation Comment: home with daughter Feels Safe at Home: Yes Safety Concerns: Feels Safe At This Time Assistive Devices: Cane Results & Data Vital Signs (Past 12 Hours) Vital Signs Temp Pulse Pulse Resp BP Pulse Ox O2 Del Method 03/03/25 08:00 Room Air 03/03/25 07:39 36.9 C 91 H 18 173/84 H 97 Room Air 03/03/25 07:11 70 20 98 Room Air 03/03/25 03:35 36.8 C 80 18 143/86 H 96 Room Air 03/03/25 03:17 Room Air 03/03/25 03:00 87 03/03/25 02:04 36.5 C 75 18 129/65 95 Room Air Laboratory Results CBC, renal panel, Urine osm, urine na Diagnostic Findings CXR and CT reviewed.
--- NOTE | 2025-03-03 10:52 | Gastrointestinal Consultation ---
Date of Consultation March 03, 2025 Assessment & Plan (1) Nausea & vomitin79 year old female with history of SIADH, dyslipidemia, prediabetes, COPD, pulmonary cachexia due to chronic COPD, multiple lung nodules, hiatal hernia, seasonal allergic rhinitis, renal artery stenosis, mesenteric artery stenosis, iliac artery stenosis bilateral, abdominal aortic aneurysm, hypertension, CAD, severe protein calorie moderation, GERD, dysphagia, CKD3, RLS, anemia of chronic disease, who presented to [facility] w/ N/V/D transferred for admission for PNA, COPD exacerbation and hyponatremia. GI was asked to evaluate for abd pain, N/V/D. She suggests her nausea/vomiting resolved and her last episode of diarrhea was about 3-4 days ago. Given onset of symptoms, suspect infectious etiology. Follow stool PCR and c.diff. Continue antiemetics as needed. Continue dietary advancement. We did discuss diagnostic workup to include endoscopic evaluation if her symptoms return. However, given her symptoms resolution and ongoing electrolytic abnormality, no plan for invasive GI workup while admitted. Can follow up as an OP with her previously established GI group through [facility]. I spent a total of 60 minutes on the date of service in review of patient's record, and previously obtained information in person and appropriate medical visit, discussion and education of plan, with patient and/or caregiver, placing orders for tests/referral/procedures as medically necessary and documentation of pertinent clinical information in patient's medical records for their visit today. (2) Diarrhea: Supervising Physician Co-Signing Physician Notes Patient may have SIADH nausea vomiting and abdominal pain. Unclear whether the low sodium is the cause of the nausea vomiting or the participating event. Patient has been having issues with this dating back to previous admissions. Patient states she eats though the chart suggest potential otherwise she certainly has a very low BMI. Not sure of the level of previous investigations. May need to review with the daughter her actual oral intake. Also whether previous investigations including upper endoscopy have been formed there is a report of dysphagia on the chart. Patient somewhat denies all of this. She ate a full breakfast this morning except eggs which she states she does not care for. Continue observe p.o. intake during this admission. Review with daughter symptoms and previous investigations but will require consent of the patient in that regard. CT scan from [facility] that some scanned into the chart from this month does not show obvious esophageal or gastric wall thickening or retention. Patient is cachectic may be pulmonary nature she has severe COPD emphysematous changes on imaging. History of Present Illness Reason for Consultation: n/v and diarrhea perisistent Requesting Physician: Vishnu See MD Attending Physician: Vishnu See MD History of Present Illness 79 year old female with history of SIADH, dyslipidemia, prediabetes, COPD, pulmonary cachexia due to chronic COPD, multiple lung nodules, hiatal hernia, seasonal allergic rhinitis, renal artery stenosis, mesenteric artery stenosis, iliac artery stenosis bilateral, abdominal aortic aneurysm, hypertension, CAD, severe protein calorie moderation, GERD, dysphagia, CKD3, RLS, anemia of chronic disease, who presented to [facility] w/ N/V/D transferred for admission for PNA, COPD exacerbation and hyponatremia. GI was asked to evaluate for abd pain, N/V/D. She notes about 10 days ago she developed generalized abd discomfort, nausea/vomiting and inability to advance diet. Suggests about 2-3 days into illness, she developed loose stools. Notes about 2-3 loose, urgent stools. Nonbloody. She suggests her vomiting resolved yesterday and her diarrhea resolved four days ago. She suggests this AM she is about 90% improved from a GI standpoint. She tolerated breakfast this AM. Denies new medications prior to onset No sick contacts No dietary/lifestyle changes Stool PCR ordered not obtained C.diff ordered not obtained NA 123 TBili 0.4 AST 25 ALT 17 ALKP 94 CTAP 2024: at [facility], will need to review but was reported as no acute GI findings Allergies Allergy/AdvReac Type Severity Reaction Status Date / Time No Known Allergies Allergy Unverified 07/10/23 19:06 Home Medications Medication Instructions Recorded Confirmed Type albuterol sulfate 90 mcg/actuation 2 puff inhalation Q6H PRN 06/04/24 03/03/25 History aerosol inhaler Shortness Of Breath Or Wheezing amlodipine 10 mg tablet 10 mg PO DAILY 06/04/24 06/04/24 History aspirin 81 mg tablet,delayed 81 mg PO DAILY 06/04/24 03/03/25 History release atorvastatin 40 mg tablet 40 mg PO DAILY 06/04/24 03/03/25 History buspirone 10 mg tablet 5 mg PO BID 06/04/24 03/03/25 History calcium 600 mg (as carbonate)-vit 1 tab PO DAILY 06/04/24 03/03/25 History D3 10 mcg (400 unit)-minerals tablet famotidine 20 mg tablet 20 mg PO DAILY 06/04/24 03/03/25 History fenofibrate nanocrystallized 145 145 mg PO DAILY 06/04/24 03/03/25 History mg tablet fluticasone fur. 200 mcg-umeclid 1 inh inhalation DAILY 06/04/24 03/03/25 History 62.5 mcg-vilant 25 mcg inhalat.powder (Trelegy Ellipta) gabapentin 100 mg capsule 100 mg PO BID 06/04/24 03/03/25 History icosapent ethyl 1 gram capsule 2 g PO BID 06/04/24 06/04/24 History isosorbide mononitrate 30 mg 30 mg PO DAILY 06/04/24 03/03/25 History tablet,extended release 24 hr lisinopril 20 mg tablet 20 mg PO DAILY 06/04/24 03/03/25 History metoprolol tartrate 25 mg tablet 25 mg PO BID 06/04/24 03/03/25 History mirtazapine 15 mg tablet 15 mg PO HS 06/04/24 03/03/25 History montelukast 10 mg tablet 10 mg PO DAILY 06/04/24 06/04/24 History omeprazole 20 mg capsule,delayed 40 mg PO DAILY 06/04/24 03/03/25 History release sertraline 100 mg tablet 100 mg PO DAILY 06/04/24 03/03/25 History cefuroxime axetil 500 mg tablet 500 mg PO BID #7 tabs 06/07/24 Rx docusate sodium 100 mg capsule 100 mg PO BID PRN constiaption 06/07/24 03/03/25 Rx #30 caps doxycycline hyclate 100 mg capsule 100 mg PO BID #7 caps 06/07/24 Rx magnesium chloride 64 mg 64 mg PO BID #20 tabs 06/07/24 03/03/25 Rx (magnesium chloride) tablet,delayed release (Mag 64) potassium chloride 20 mEq 20 meq PO DAILY #10 tabs 06/07/24 03/03/25 Rx tablet,extended release(part/cryst) Patient History Family History Other Diabetes Family history non-contributory Heart disease Social History Smoking Status: Current every day smoker Tobacco Type: Cigarettes Cigarettes Per Day: x1 pack; Hx Alcohol Use: No Hx Substance Use: No Preferred Language: Botswanan Communication Ability: Effective Photographic Equipment Mechanic Required: No Beliefs That Will Affect Care: None Current Living Situation: Family Current Living Situation Comment: home with daughter Feels Safe at Home: Yes Safety Concerns: Feels Safe At This Time Assistive Devices: Cane Review of Systems Review of Systems: All other findings negative except as noted in HPI. Physical Exam Constitutional: WD/WN, vitals as above Respiratory: normal respiratory effort, lungs clear to auscultation Gastrointestinal (Abdomen): normal bowel sounds, soft, nontender, no hepatosplenomegaly Skin: no rashes, warm and dry Results & Data Vital Signs (Past 12 Hours) Vital Signs Temp Pulse Pulse Resp BP Pulse Ox O2 Del Method 03/03/25 08:00 Room Air 03/03/25 07:39 98.4 F 91 H 18 173/84 H 97 Room Air 03/03/25 07:11 70 20 98 Room Air 03/03/25 03:35 98.2 F 80 18 143/86 H 96 Room Air 03/03/25 03:17 Room Air 03/03/25 03:00 87 03/03/25 02:04 97.7 F 75 18 129/65 95 Room Air Laboratory Results 03/03/25 03/03/25 03/03/25 Range/Units 10:13 06:27 02:12 WBC 7.17 (4.8-10.8) K/ul RBC 3.90 L (4.20-5.40) M/uL Hgb 11.9 L (12.0-16.0) g/dl Hct 32.5 L (37.0-47.0) % MCV 83.3 (80.0-100.0) fL MCH 30.5 (25.0-34.0) pg MCHC 36.6 H (32.0-36.0) g/dL RDW Std Deviation 39.0 (36.4-46.3) fL RDW Coeff of Carlos Manuel 12.8 (11.5-14.5) % Plt Count 350 (130-400) K/uL MPV 8.3 L (9.4-12.4) fL Immature Gran % (Auto) 1.0 % Neut % (Auto) 85.5 % Lymph % (Auto) 11.7 % [place] % (Auto) 1.7 % Eos % (Auto) 0.0 % Baso % (Auto) 0.1 % Neut # (Auto) 6.13 (1.40-6.50) K/uL Lymph # (Auto) 0.84 L (1.20-3.40) K/uL [place] # (Auto) 0.12 (0.11-0.59) K/uL Eos # (Auto) 0.00 (0.00-0.50) K/uL Baso # (Auto) 0.01 (0.00-0.20) K/uL Immature Gran # (Auto) 0.07 (0.01-0.20) K/uL PT 11.3 (9.0-12.0) Seconds INR 1.0 (0.9-1.1) APTT 26 (21-31) Seconds PTT Ratio 1.0 Sodium Pending 123 L 124 L (136-145) mmol/L Potassium Pending 3.8 4.1 (3.5-5.1) mmol/L Chloride Pending 94 L 93 L (98-107) mmol/L Carbon Dioxide Pending 21 21 (21-32) mmol/L Anion Gap Pending 8 10 (3-11) BUN Pending 13 15 (6-23) mg/dl Creatinine Pending 0.80 0.88 (0.6-1.2) mg/dl Est Cr Clr Drug Dosing Pending 32.1 29.1 ml/min eGFR Pending 75.84 67.64 BUN/Creatinine Ratio Pending 16.3 17.0 (10-20) Glucose Pending 117 H 135 H (70-99(Fasting)) mg/dl Osmolality 267 L (280-300) mOsm/kg Calcium Pending 8.4 L 8.9 (8.6-10.3) mg/dl Magnesium 1.8 (1.7-2.4) mg/dl Total Bilirubin 0.4 (0.2-1.0) mg/dl AST 25 (13-39) U/L ALT 17 (7-52) U/L Alkaline Phosphatase 94 (34-104) U/L Troponin I High Sens Pending 16.2 H 17.8 H (0-14) pg/ml Total Protein 7.2 (6.0-8.3) gm/dl Albumin 4.2 (3.4-5.0) gm/dl Globulin 3.0 (2.5-4.0) gm/dl Albumin/Globulin Ratio 1.4 (0.9-2) Hepatitis C Ab Screen Negative (Negative) PG Care Time/CCT Total # of Minutes Spent Total Time Spent with Patient: Total time spent is greater than 50% in coordination of care (as documented) at patient's floor/unit and/or counseling patient: Coding Level of Care Code 26255 INT INP/OBS CARE 2/55MIN Diagnoses Nausea & vomiting R11.2 Diarrhea R19.7
[2025-03-03 11:01] LABS: BUN Creatinine Ratio 17.8 (10-20); Calcium 8.1 mg/dl (8.6-10.3); Creatinine Clr Calc Pharmacy 35.1 ml/min; Potassium 4.1 mmol/L (3.5-5.1)
[2025-03-03 11:07] LABS: Troponin I High Sensitivity 16.7 pg/ml (0-14)
[2025-03-03] MEDS: FUROSEMIDE INJ 20 MG/2 ML VIAL IV SCH (11:10)
[2025-03-03] MEDS: SODIUM CHLORIDE 0.9% 1,000 ML IV SCH (11:10)
--- NOTE | 2025-03-03 12:50 | Hospitalist Progress Note ---
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, multiple lung nodules, hiatal hernia, seasonal allergic rhinitis, renal artery stenosis, mesenteric artery stenosis, iliac artery stenosis bilateral, abdominal aortic aneurysm, hypertension, history of CAD, severe protein calorie moderation, GERD, dysphagia, CKD stage III, restless leg syndrome, lumbar degenerative disease, anemia due to CKD stage III, general anxiety disorder, tobacco use disorder, mild cognitive disorder., ambulates with a cane and lives with her daughter went to [facility] because of nausea vomiting and abdominal pain going for last 10 days and was found to have pneumonia, COPD exacerbation and hyponatremia and was transferred here for further care. Patient says for last 10 days she is having lot of nausea and vomiting and not able to eat anything. Associated with abdominal pain. Currently abdominal pain resolved. Having some diarrhea with black stools. Micturating okay. Denies any fevers. Having cough and bringing some phlegm. Denies any chest pain or shortness of breath. No headache. Sometimes feels dizzy associated with some double vision when she stands up quickly and and then resolves. Currently resting comfortably saturating okay on room air and hemodynamically stable. Marleni went to [facility] and was found to have some wheezing. Somewhat tachypneic and heart rates was 90s. EKG was okay. Has elevated WBC, hemoglobin was okay. Alert and oriented. Glucose was 132. Sodium was 119. K was 2.9. D-dimer was elevated at 1200. CTA chest no PE . CXR showed right lower lung pneumonia. She got 1 L of fluids before sodium was checked. [facility] ER had talked with the nephrology on-call and was advised for urine studies and also close follow-up of the labs and patient was placed on maintenance fluids. Initial recheck sodium went to 118 and repeat recheck sodium went to 120 before she was transferred here. Acute Hyponatremia History of SIADH with severe cachexia likely secondary to underlying chronic COPD presented with nausea vomiting and diarrhea for a total of 10 days duration Presented with sodium of 118 Received D5 water at rate of 80 mL/h Sodium level went up to 124 early this morning and this morning it has been 121 Will check serum osmolality-Low at 267, urine osmolality low at 276 and urine sodium levels- was 76 Appreciate nephrology input and recommendation- has been put on normal saline at 50 mL/h and also IV Lasix 20 mg IV every 8 hourly and no urea at this time Will restrict fluid intake to 1000 mL/day Nausea vomiting and abdominal pain- likely infectious Her on and off diarrhea could be related to mesenteric stenosis per Vascular surgery Will check stool studies. tool for hemeoccult-Awaiting collection and results Consult GI for any further recommendations- appreciate GI input and recommendation no EGD at this time Nausea and vomiting have resolved and the patient is tolerating regular diet Pneumonia Right lower lobe pneumonia on chest x-ray On the CAT scan no obvious pneumonia Empiric Rocephin and doxycycline Will continue empiric Rocephin and doxycycline COPD Currently seems stable Will place on DuoNebs in the clock and as needed and continue home inhalers Will monitor Abdominal aortic aneurysm CT abdomen pelvis with IV contrast done at [facility] shows infrarenal abdominal aortic aneurysm craniocaudal length of approximately 6.9 cm in transverse diameter up to 4.2 cm and also ascending thoracic aortic measures 3.3cm Patient also has mesenteric stenosis >70% and celiac stenosis follows with vascular surgery no indications for operative intervention per vascular surgery As mentioned above. Asked images to be transferred to our facility. Celiac and mesenteric stenosis Carotid stenosis Can review images with vascular surgery on aspirin and statin CKD stage III Creatinine 0.8 Will follow labs Mild elevation of troponin Mostly demand ischemia Will follow serial cardiac enzymes- negative for any ACS Hypertension On lisinopril Imdur and metoprolol To check with patient if she is still on amlodipine Will monitor Depression On Zoloft, Remeron and BuSpar Meds be causing hyponatremia GERD Omeprazole and famotidine Hyperlipidemia Statin Tobacco abuse Needs counseling Malnutrition Dietitian consult DVT prophylaxis Heparin subcu follow stool for hemeoccult Disposition Telemetry Full code. Admission and Anticipated Discharge Date Admission Date: March 03, 2025 Subjective 03/03/2025 The patient was seen and examined in telemetry unit She has been feeling a lot better and has been tolerating diet Denies any significant nausea and/or vomiting and diarrhea is controlled Review of Systems Review of Systems: All systems reviewed and are unremarkable except as noted below Physical Exam Physical Exam: Lying in bed without any acute distress Constitutional: + ill appearing and + thin Eyes: PERRL, conjunctivae normal, anicteric sclerae ENMT: external ear and nose normal, oropharynx normal Neck: trachea midline, no thyromegaly Respiratory: no respiratory distress Auscultation: lungs clear to auscultation bilaterally Cardiovascular: Rate/Rhythm: regular rate and regular rhythm; not tachycardic Heart Sounds: normal S1 and normal S2; no murmur Extremities: no edema Gastrointestinal (Abdomen): Inspection/Auscultation: normal bowel sounds; abdomen not distended Percussion/Palpation: abdomen soft; abdomen nontender Musculoskeletal: No acute arthritis involving any of the joint Neurologic: normal touch/pain/proprioception and moves all extremities; no focal motor deficits Lymphatic: no cervical or axillary lymphadenopathy Results & Data Results & Data Vital Signs (Past 12 Hours) Vital Signs Temp Pulse Pulse Resp BP Pulse Ox O2 Del Method 03/03/25 11:25 71 19 97 Room Air 03/03/25 10:49 36.4 C L 70 18 152/75 H 99 Room Air 03/03/25 08:00 Room Air 03/03/25 07:39 36.9 C 91 H 18 173/84 H 97 Room Air 03/03/25 07:11 70 20 98 Room Air 03/03/25 03:35 36.8 C 80 18 143/86 H 96 Room Air 03/03/25 03:17 Room Air 03/03/25 03:00 87 03/03/25 02:04 36.5 C 75 18 129/65 95 Room Air Laboratory Results Short CBC 03/03/25 Range/Units 02:12 WBC 7.17 (4.8-10.8) K/ul Hgb 11.9 L (12.0-16.0) g/dl Hct 32.5 L (37.0-47.0) % Plt Count 350 (130-400) K/uL BMP 03/03/25 03/03/25 03/03/25 02:12 06:27 10:13 Sodium 124 L 123 L 121 L Potassium 4.1 3.8 4.1 Chloride 93 L 94 L 92 L Carbon Dioxide 21 21 21 BUN 15 13 13 Creatinine 0.88 0.80 0.73 Glucose 135 H 117 H 97 Calcium 8.9 8.4 L 8.1 L Liver Function 03/03/25 Range/Units 02:12 Total Bilirubin 0.4 (0.2-1.0) mg/dl AST 25 (13-39) U/L ALT 17 (7-52) U/L Alkaline Phosphatase 94 (34-104) U/L Albumin 4.2 (3.4-5.0) gm/dl Medications Administered Current Inpatient Medications Acetaminophen (Acetaminophen 325 Mg Tab) 650 mg PO Q4H PRN PRN Reason: Pain or Fever Stop: 04/02/25 02:29 Albuterol (Albut/Ipratrop 3mg/0.5mg Neb 3 Ml Vial) 3 ml NEB QIDR DAYNE; Protocol Stop: 04/02/25 06:59 Last Admin: 03/03/25 11:25 Dose: 3 ml Albuterol (Albut/Ipratrop 3mg/0.5mg Neb 3 Ml Vial) 3 ml NEB Q4H PRN; Protocol PRN Reason: Shortness Of Breath Or Wheezing Stop: 04/02/25 02:29 Albuterol (Albuterol Hfa 8 Gm Inhaler) 2 puffs INH Q6H PRN PRN Reason: Shortness Of Breath Or Wheezing Stop: 04/02/25 04:43 Aspirin (Aspirin 81 Mg Ectab) 81 mg PO DAILY [facility] Stop: 04/02/25 08:59 Last Admin: 03/03/25 08:45 Dose: 81 mg Atorvastatin Calcium (Atorvastatin 40 Mg Tab) 40 mg PO DAILY [facility] Stop: 04/02/25 08:59 Last Admin: 03/03/25 08:46 Dose: 40 mg Buspirone HCl (Buspirone 5 Mg Tab) 5 mg PO BID DAYNE Stop: 04/02/25 08:59 Last Admin: 03/03/25 08:46 Dose: 5 mg Calcium/Vitamin D (Calcium 600mg + Vit D 400 Iu Tab) 1 tab PO DAILY [facility] Stop: 04/02/25 08:59 Last Admin: 03/03/25 08:46 Dose: 1 tab Docusate Sodium (Docusate Sodium 100 Mg Cap) 100 mg PO BID PRN PRN Reason: constiaption Stop: 04/02/25 04:43 Famotidine (Famotidine 20 Mg Tab) 20 mg PO DAILY [facility] Stop: 04/02/25 08:59 Last Admin: 03/03/25 08:51 Dose: 20 mg Fenofibrate (Fenofibrate Nanocrystallized 145 Mg Tablet) 145 mg PO DAILY [facility] Stop: 04/02/25 08:59 Last Admin: 03/03/25 08:46 Dose: 145 mg Fluticasone Furoate (Fluticasone Furoate 200mcg 14 Puffs/Inhaler) 1 puffs INH DAILY DAYNE Stop: 04/02/25 08:59 Last Admin: 03/03/25 08:45 Dose: 1 puffs Furosemide (Furosemide Inj 20 Mg/2 Ml Vial) 20 mg IV Q8H DAYNE Stop: 04/02/25 10:59 Last Admin: 03/03/25 11:10 Dose: 20 mg Gabapentin (Gabapentin 100 Mg Cap) 100 mg PO BID DAYNE Stop: 04/02/25 08:59 Last Admin: 03/03/25 08:46 Dose: 100 mg Heparin Sodium (Porcine) (Heparin Sod 5,000 Unit/0.5 Ml Vial) 5,000 units SQ Q12 DAYNE Stop: 04/02/25 08:59 Last Admin: 03/03/25 08:48 Dose: 5,000 units Ceftriaxone Sodium (Rocephin) 2,000 mg in 50 mls @ 100 mls/hr IV Q24H DAYNE Stop: 03/08/25 07:59 Last Infusion: 03/03/25 09:19 Dose: Infused Doxycycline Hyclate 100 mg/ (Dextrose) 100 mls @ 50 mls/hr IV Q12H DAYNE Stop: 03/08/25 07:59 Last Infusion: 03/03/25 10:49 Dose: Infused Sodium Chloride (Nss) 1,000 mls @ 50 mls/hr IV .Q20H DAYNE Stop: 03/06/25 10:59 Last Admin: 03/03/25 11:10 Dose: 50 mls/hr Isosorbide Mononitrate (Isosorbide Morrill Extended Rel 30 Mg Tabcr) 30 mg PO DAILY DAYNE Stop: 04/02/25 08:59 Last Admin: 03/03/25 08:46 Dose: 30 mg Lisinopril (Lisinopril 20 Mg Tab) 20 mg PO DAILY DAYNE Stop: 04/02/25 08:59 Last Admin: 03/03/25 08:46 Dose: 20 mg Magnesium Chloride (Magnesium Chloride W/Calcium 64mg Delayed Rel Tab) 64 mg PO BID DAYNE Stop: 04/02/25 08:59 Last Admin: 03/03/25 08:46 Dose: 64 mg Metoprolol Tartrate (Metoprolol Tartrate 25 Mg Tab) 25 mg PO BID [facility] Stop: 04/02/25 08:59 Last Admin: 03/03/25 08:46 Dose: 25 mg Mirtazapine (Mirtazapine Tab 15 Mg Tab) 15 mg PO HS [facility] Stop: 04/02/25 20:59 Nitroglycerin (Nitroglycerin Sl 0.4 Mg/Tab Tab) 0.4 mg SL Q5M PRN PRN Reason: Chest Pain Stop: 04/02/25 02:29 Pantoprazole Sodium (Pantoprazole 40 Mg Tab) 40 mg PO DAILY [facility] Stop: 04/02/25 08:59 Last Admin: 03/03/25 08:46 Dose: 40 mg Polyethylene Glycol (Polyethylene (Miralax) 17 Gm Pack) 17 gm PO DAILY PRN PRN Reason: Constipation Stop: 04/02/25 02:29 Potassium Chloride (Potassium Chloride Crtab 20 Meq Tabcr) 20 meq PO TID [facility] Stop: 04/02/25 13:59 Sertraline HCl (Sertraline Hcl 100 Mg Tablet) 100 mg PO DAILY [facility] Stop: 04/02/25 08:59 Last Admin: 03/03/25 08:46 Dose: 100 mg Umeclidinium/Vilanterol (Umeclidinium/Vilanterol 62.5/25mcg 7 Puffs/Inhaler) 1 puffs INH QAM [facility] Stop: 04/02/25 08:59 Last Admin: 03/03/25 08:45 Dose: 1 puffs
[2025-03-03 15:03] LABS: Troponin I High Sensitivity 18.1 pg/ml (0-14)
[2025-03-03 17:55] LABS: Albumin Level 3.6 gm/dl (3.4-5.0); BUN Creatinine Ratio 14.8 (10-20); Calcium 8.5 mg/dl (8.6-10.3); Creatinine Clr Calc Pharmacy 31.7 ml/min; Potassium 3.7 mmol/L (3.5-5.1)
[2025-03-03] MEDS: MIRTAZAPINE TAB 15 MG TAB PO SCH (20:49)
[2025-03-03] MEDS ORDERED: Nursing to Pharmacy Communication SCH (21:00)
[2025-03-03 21:55] LABS: Appearance Urine Clear (Clear); Bilirubin Urine Negative (Negative); Blood Urine Negative (Negative); Color Urine Yellow; Glucose Urine UA Negative (Negative); Ketones Urine Negative (Negative); Leukocyte Esterase Urine Negative (Negative); Nitrite Urine Negative (Negative); Protein Urine Negative (Negative); Specific Gravity Urine 1.006 (1.000-1.030); Urobilinogen Urine Negative (Negative); pH Urine 6.5 (4.5-7.5)
[2025-03-03 23:11] LABS: Calcium 9.1 mg/dl (8.6-10.3); Potassium 4.1 mmol/L (3.5-5.1)
[2025-03-03 23:17] LABS: BUN Creatinine Ratio 16.9 (10-20); Creatinine Clr Calc Pharmacy 28.8 ml/min
--- NOTE | 2025-03-04 05:48 | Electrocardiogram Report ---
Test Reason : Blood Pressure : */* mmHG Vent. Rate : 77 BPM Atrial Rate : 77 BPM P-R Int : 154 ms QRS Dur : 68 ms QT Int : 382 ms P-R-T Axes : 80 61 80 degrees QTcB Int : 432 ms Normal sinus rhythm Septal infarct (cited on or before 10-Jul-2023) Abnormal ECG When compared with ECG of 03-Jun-2024 21:44, No significant change was found Confirmed by Gregory Mar [id number]) on 03/04/2025 5:48:18 AM Referred By: Adama Gates Confirmed By: Gregory Mar
[2025-03-04 07:29] LABS: Basophils # (auto) 0.02 K/uL (0.00-0.20); Basophils % (auto) 0.2 %; Eosinophils # (auto) 0.03 K/uL (0.00-0.50); Eosinophils % (auto) 0.3 %; Hematocrit (blood only) 32.2 % (37.0-47.0); Hemoglobin 11.5 g/dl (12.0-16.0); Immature Granulocytes # (auto) 0.06 K/uL (0.01-0.20); Immature Granulocytes % (auto) 0.7 %; Lymphocytes # (auto) 1.67 K/uL (1.20-3.40); Lymphocytes % (auto) 19.3 %; Mean Corpuscular Hemoglobin 29.7 pg (25.0-34.0); Mean Corpuscular Hgb Conc 35.7 g/dL (32.0-36.0); Mean Corpuscular Volume 83.2 fL (80.0-100.0); Mean Platelet Volume 8.3 fL (9.4-12.4); Monocytes # (auto) 0.73 K/uL (0.11-0.59); Monocytes % (auto) 8.4 %; Neutrophils # (auto) 6.15 K/uL (1.40-6.50); Neutrophils % (auto) 71.1 %; Platelet Count 333 K/uL (130-400); RDW Coefficient of Variation 12.8 % (11.5-14.5); Red Blood Count 3.87 M/uL (4.20-5.40); White Blood Count 8.66 K/ul (4.8-10.8)
[2025-03-04 07:44] LABS: BUN Creatinine Ratio 14.9 (10-20); Calcium 9.2 mg/dl (8.6-10.3); Creatinine Clr Calc Pharmacy 27.7 ml/min; Potassium 4.1 mmol/L (3.5-5.1)
--- NOTE | 2025-03-04 09:23 | Gastroenterology Progress Note ---
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 AM cortisol 22, Stool studies yet to be obtained Diet as tolerated Supportive measures w/ antiemetics If diarrhea returns, consider lose dose Questran once daily Discussed OP EGD/Colonoscopy to ensure no other pathology once she is improved to baseline from a pulmonary standpoint and her electrolytes improve. I spent a total of 40 minutes on the date of service in review of patient's record, and previously obtained information in person and appropriate medical visit, discussion and education of plan, with patient and/or caregiver, placing orders for tests/referral/procedures as medically necessary and documentation of pertinent clinical information in patient's medical records for their visit today. (2) Nausea & vomiting: Admission and Anticipated Discharge Date Admission Date: March 03, 2025 Supervising Physician Co-Signing Physician Notes Based on reports of poor oral intake progressive weight loss I think she might benefit from an EGD. We can perform this once her sodium is around 128 curt. Reviewed with patient she is agreeable. Subjective Pt was seen and evaluated, chart reviewed. Family at bedside. Notes she ate some breakfast but did not complete the tray as it was not food she likes. Denies abd pain, nausea/vomiting. Had one loose BM yesterday, large volume. No black or bloody stools. Stool studies yet to be obtained AM cortisol 22 Review of Systems Review of Systems: All other findings negative except as noted in HPI. Physical Exam Constitutional: WD/WN, vitals as above Respiratory: normal respiratory effort, lungs clear to auscultation Gastrointestinal (Abdomen): normal bowel sounds, soft, nontender, no hepatosplenomegaly Skin: no rashes, warm and dry Results & Data Results & Data Vital Signs (Past 12 Hours) Vital Signs Temp Pulse Pulse Resp BP Pulse Ox O2 Del Method 03/04/25 07:56 98.1 F 87 17 144/75 H 93 Room Air 03/04/25 07:45 79 03/04/25 07:39 Room Air 03/04/25 07:00 86 22 95 Room Air 03/04/25 02:52 97.7 F 81 18 140/84 96 Room Air 03/03/25 23:15 97.9 F 78 18 170/90 H 99 Room Air 03/03/25 22:56 94 H Laboratory Results 03/04/25 03/03/25 03/03/25 Range/Units 07:08 Unknown 22:30 WBC 8.66 (4.8-10.8) K/ul RBC 3.87 L (4.20-5.40) M/uL Hgb 11.5 L (12.0-16.0) g/dl Hct 32.2 L (37.0-47.0) % MCV 83.2 (80.0-100.0) fL MCH 29.7 (25.0-34.0) pg MCHC 35.7 (32.0-36.0) g/dL RDW Std Deviation 39.0 (36.4-46.3) fL RDW Coeff of Carlos Manuel 12.8 (11.5-14.5) % Plt Count 333 (130-400) K/uL MPV 8.3 L (9.4-12.4) fL Immature Gran % (Auto) 0.7 % Neut % (Auto) 71.1 % Lymph % (Auto) 19.3 % Hendricks % (Auto) 8.4 % Eos % (Auto) 0.3 % Baso % (Auto) 0.2 % Neut # (Auto) 6.15 (1.40-6.50) K/uL Lymph # (Auto) 1.67 (1.20-3.40) K/uL Hendricks # (Auto) 0.73 H (0.11-0.59) K/uL Eos # (Auto) 0.03 (0.00-0.50) K/uL Baso # (Auto) 0.02 (0.00-0.20) K/uL Immature Gran # (Auto) 0.06 (0.01-0.20) K/uL Sodium 126 L 121 L (136-145) mmol/L Potassium 4.1 4.1 (3.5-5.1) mmol/L Chloride 93 L 88 L (98-107) mmol/L Carbon Dioxide 25 24 (21-32) mmol/L Anion Gap 8 9 (3-11) BUN 14 15 (6-23) mg/dl Creatinine 0.94 0.89 (0.6-1.2) mg/dl Est Cr Clr Drug Dosing 27.7 28.8 ml/min eGFR 62.50 66.73 BUN/Creatinine Ratio 14.9 16.9 (10-20) Glucose 92 99 (70-99(Fasting)) mg/dl Calcium 9.2 9.1 (8.6-10.3) mg/dl Phosphorus (2.5-4.9) mg/dl Troponin I High Sens (0-14) pg/ml Albumin (3.4-5.0) gm/dl Cortisol AM Sample 22.94 H (6.2-22.6) mcg/dl Urine Color Yellow Urine Appearance Clear (Clear) Urine pH 6.5 (4.5-7.5) Ur Specific [place] 1.006 (1.000-1.030) Urine Protein Negative (Negative) Urine Glucose (UA) Negative (Negative) Urine Ketones Negative (Negative) Urine Blood Negative (Negative) Urine Nitrite Negative (Negative) Urine Bilirubin Negative (Negative) Urine Urobilinogen Negative (Negative) Ur Leukocyte Esterase Negative (Negative) Urine Osmolality 246 L (500-800) mOsm/kg Ur Random Sodium 85 mmol/L Urine Comment 03/03/25 03/03/25 Range/Units 14:28 10:13 WBC (4.8-10.8) K/ul RBC (4.20-5.40) M/uL Hgb (12.0-16.0) g/dl Hct (37.0-47.0) % MCV (80.0-100.0) fL MCH (25.0-34.0) pg MCHC (32.0-36.0) g/dL RDW Std Deviation (36.4-46.3) fL RDW Coeff of Carlos Manuel (11.5-14.5) % Plt Count (130-400) K/uL MPV (9.4-12.4) fL Immature Gran % (Auto) % Neut % (Auto) % Lymph % (Auto) % Hendricks % (Auto) % Eos % (Auto) % Baso % (Auto) % Neut # (Auto) (1.40-6.50) K/uL Lymph # (Auto) (1.20-3.40) K/uL Hendricks # (Auto) (0.11-0.59) K/uL Eos # (Auto) (0.00-0.50) K/uL Baso # (Auto) (0.00-0.20) K/uL Immature Gran # (Auto) (0.01-0.20) K/uL Sodium 125 L 121 L (136-145) mmol/L Potassium 3.7 4.1 (3.5-5.1) mmol/L Chloride 94 L 92 L (98-107) mmol/L Carbon Dioxide 23 21 (21-32) mmol/L Anion Gap 8 8 (3-11) BUN 12 13 (6-23) mg/dl Creatinine 0.81 0.73 (0.6-1.2) mg/dl Est Cr Clr Drug Dosing 31.7 35.1 ml/min eGFR 74.72 84.65 BUN/Creatinine Ratio 14.8 17.8 (10-20) Glucose 106 H 97 (70-99(Fasting)) mg/dl Calcium 8.5 L 8.1 L (8.6-10.3) mg/dl Phosphorus 2.0 L (2.5-4.9) mg/dl Troponin I High Sens 18.1 H 16.7 H (0-14) pg/ml Albumin 3.6 (3.4-5.0) gm/dl Cortisol AM Sample (6.2-22.6) mcg/dl Urine Color Urine Appearance (Clear) Urine pH (4.5-7.5) Ur Specific [place] (1.000-1.030) Urine Protein (Negative) Urine Glucose (UA) (Negative) Urine Ketones (Negative) Urine Blood (Negative) Urine Nitrite (Negative) Urine Bilirubin (Negative) Urine Urobilinogen (Negative) Ur Leukocyte Esterase (Negative) Urine Osmolality (500-800) mOsm/kg Ur Random Sodium mmol/L Urine Comment PG Care Time/CCT Total # of Minutes Spent Total Time Spent with Patient: Total time spent is greater than 50% in coordination of care (as documented) at patient's floor/unit and/or counseling patient: Coding Level of Care Code 15148 SUB INP/OBS CARE 2/35MIN Diagnoses Diarrhea R19.7 Nausea & vomiting R11.2
--- NOTE | 2025-03-04 10:55 | Nephrology Progress Note ---
Date of Service March 04, 2025 Assessment & Plan Admission and Anticipated Discharge Date Admission Date: March 03, 2025 Subjective Assessment & Plan (1) Acute hyponatremia: has h/o this from Underlying SIADH ( with Severe Cachexia-weighs 34 kilo and Underlying COPD). Currently Came in with Worsened Serum na --was 118 at [facility] and last one was 123. Cause was nausea and vomiting with Almost total lack of Solid food intake but was still drinking lot of liquids. this created a big mismatch and Caused Na to go lower. Also Nausea triggers more ADH release making her Na go lower. We will give her NS at 50ml/hr for volume and Salt load. na is 125 this AM. might be hard to raise it past to 130. Does have chronic Hyponatremia But will also phoebe that with Iv lasix / raise it to 30 mg iv q8hr to lower urine osm and cause aquaresis. Given her nausea and vomiting will try to mange without urea--very hard to swallow FFR 1000 ml. change it to bid labs. (2) Nausea & vomiting: Much better now. S--feels better. Stronger and also eating better. Lot of urine but not measured. na is better this AM ROS--see HPI. 12 Systems reviewed and negative Physical Exam Physical Exam: General- Not in distress. very Thin and frail. Normal accurate Speech MM--moist. Neck- supple, no JVD. Lungs- clear to auscultation . Prolonged wheezing Heart- regular rhythm; no murmur Abdomen- soft, nontender Extremities- no edema Neuro- alert, oriented Results & Data Vital Signs (Past 12 Hours) Vital Signs Temp Pulse Pulse Resp BP Pulse Ox O2 Del Method 03/04/25 07:56 36.7 C 87 17 144/75 H 93 Room Air 03/04/25 07:45 79 03/04/25 07:39 Room Air 03/04/25 07:00 86 22 95 Room Air 03/04/25 02:52 36.5 C 81 18 140/84 96 Room Air 03/03/25 23:15 36.6 C 78 18 170/90 H 99 Room Air 03/03/25 22:56 94 H
[2025-03-04] MEDS: FUROSEMIDE INJ 20 MG/2 ML VIAL IV SCH (11:31)
--- NOTE | 2025-03-04 14:28 | Hospitalist Progress Note ---
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, multiple lung nodules, hiatal hernia, seasonal allergic rhinitis, renal artery stenosis, mesenteric artery stenosis, iliac artery stenosis bilateral, abdominal aortic aneurysm, hypertension, history of CAD, severe protein calorie moderation, GERD, dysphagia, CKD stage III, restless leg syndrome, lumbar degenerative disease, anemia due to CKD stage III, general anxiety disorder, tobacco use disorder, mild cognitive disorder., ambulates with a cane and lives with her daughter went to [facility] because of nausea vomiting and abdominal pain going for last 10 days and was found to have pneumonia, COPD exacerbation and hyponatremia and was transferred here for further care. Patient says for last 10 days she is having lot of nausea and vomiting and not able to eat anything. Associated with abdominal pain. Currently abdominal pain resolved. Having some diarrhea with black stools. Micturating okay. Denies any fevers. Having cough and bringing some phlegm. Denies any chest pain or shortness of breath. No headache. Sometimes feels dizzy associated with some double vision when she stands up quickly and and then resolves. Currently resting comfortably saturating okay on room air and hemodynamically stable. Marleni went to [facility] and was found to have some wheezing. Somewhat tachypneic and heart rates was 90s. EKG was okay. Has elevated WBC, hemoglobin was okay. Alert and oriented. Glucose was 132. Sodium was 119. K was 2.9. D-dimer was elevated at 1200. CTA chest no PE . CXR showed right lower lung pneumonia. She got 1 L of fluids before sodium was checked. [facility] ER had talked with the nephrology on-call and was advised for urine studies and also close follow-up of the labs and patient was placed on maintenance fluids. Initial recheck sodium went to 118 and repeat recheck sodium went to 120 before she was transferred here. Acute Hyponatremia History of SIADH with severe cachexia likely secondary to underlying chronic COPD presented with nausea vomiting and diarrhea for a total of 10 days duration Presented with sodium of 118 Received D5 water at rate of 80 mL/h Sodium level went up to 124 early this morning and this morning it has been 121 Will check serum osmolality-Low at 267, urine osmolality low at 276 and urine sodium levels- was 76 Appreciate nephrology input and recommendation- has been put on normal saline at 50 mL/h and also IV Lasix 20 mg IV every 8 hourly and no urea at this time Will restrict fluid intake to 1000 mL/day Sodium level is slightly better at 126 today and will continue current management PRP will be done twice daily Nausea vomiting and abdominal pain- likely infectious Her on and off diarrhea could be related to mesenteric stenosis per Vascular surgery Will check stool studies. tool for hemeoccult-Awaiting collection and results Consult GI for any further recommendations- appreciate GI input and recommendation no EGD at this time Nausea and vomiting have resolved and the patient is tolerating regular diet No more nausea no vomiting and no diarrhea Pneumonia- aspiration pneumonia has been ruled out Right lower lobe pneumonia on chest x-ray On the CAT scan no obvious pneumonia Empiric Rocephin and doxycycline Will continue empiric Rocephin and doxycycline Antibiotics will be discontinued tomorrow COPD Currently seems stable Will place on DuoNebs in the clock and as needed and continue home inhalers Will monitor Abdominal aortic aneurysm CT abdomen pelvis with IV contrast done at [facility] shows infrarenal abdominal aortic aneurysm craniocaudal length of approximately 6.9 cm in transverse diameter up to 4.2 cm and also ascending thoracic aortic measures 3.3cm Patient also has mesenteric stenosis >70% and celiac stenosis follows with vascular surgery no indications for operative intervention per vas cular surgery As mentioned above. Asked images to be transferred to our facility. Celiac and mesenteric stenosis Carotid stenosis Can review images with vascular surgery on aspirin and statin CKD stage III Creatinine 0.8 Will follow labs Mild elevation of troponin Mostly demand ischemia Will follow serial cardiac enzymes- negative for any ACS Hypertension On lisinopril Imdur and metoprolol To check with patient if she is still on amlodipine Blood pressure has been running low at 96/60advised to drink more fluid Depression On Zoloft, Remeron and BuSpar Meds be causing hyponatremia GERD Omeprazole and famotidine Hyperlipidemia Statin Tobacco abuse Needs counseling Malnutrition Dietitian consult Will try boost DVT prophylaxis Heparin subcu follow stool for hemeoccult Disposition Telemetry Full code. Admission and Anticipated Discharge Date Admission Date: March 03, 2025 Subjective 03/03/2025 The patient was seen and examined in telemetry unit She has been feeling a lot better and has been tolerating diet Denies any significant nausea and/or vomiting and diarrhea is controlled 03/04/2025 The patient was seen and examined in telemetry unit in presence of the daughter She has been feeling much better and does not seems to be in confusion Denies any abdominal pain, nausea or vomiting and diarrhea is controlled Review of Systems Review of Systems: All systems reviewed and are unremarkable except as noted below Physical Exam Physical Exam: Lying in bed without any acute distress Constitutional: + ill appearing and + thin Eyes: PERRL, conjunctivae normal, anicteric sclerae ENMT: external ear and nose normal, oropharynx normal Neck: trachea midline, no thyromegaly Respiratory: no respiratory distress Auscultation: lungs clear to auscultation bilaterally Cardiovascular: Rate/Rhythm: regular rate and regular rhythm; not tachycardic Heart Sounds: normal S1 and normal S2; no murmur Extremities: no edema Gastrointestinal (Abdomen): Inspection/Auscultation: normal bowel sounds; abdomen not distended Percussion/Palpation: abdomen soft; abdomen nontender Musculoskeletal: No acute arthritis involving any of the joint Neurologic: normal touch/pain/proprioception and moves all extremities; no focal motor deficits Lymphatic: no cervical or axillary lymphadenopathy Results & Data Results & Data Vital Signs (Past 12 Hours) Vital Signs Temp Pulse Pulse Resp BP Pulse Ox O2 Del Method 03/04/25 11:44 36.5 C 85 18 96/60 L 96 Room Air 03/04/25 11:04 80 18 99 Room Air 03/04/25 07:56 36.7 C 87 17 144/75 H 93 Room Air 03/04/25 07:45 79 03/04/25 07:39 Room Air 03/04/25 07:00 86 22 95 Room Air 03/04/25 02:52 36.5 C 81 18 140/84 96 Room Air Laboratory Results Short CBC 03/04/25 Range/Units 07:08 WBC 8.66 (4.8-10.8) K/ul Hgb 11.5 L (12.0-16.0) g/dl Hct 32.2 L (37.0-47.0) % Plt Count 333 (130-400) K/uL BMP 03/03/25 03/03/25 03/04/25 14:28 22:30 07:08 Sodium 125 L 121 L 126 L Potassium 3.7 4.1 4.1 Chloride 94 L 88 L 93 L Carbon Dioxide 23 24 25 BUN 12 15 14 Creatinine 0.81 0.89 0.94 Glucose 106 H 99 92 Calcium 8.5 L 9.1 9.2 Liver Function 03/03/25 Range/Units 14:28 Albumin 3.6 (3.4-5.0) gm/dl Urine 03/03/25 Range/Units Unknown Urine Color Yellow Urine Appearance Clear (Clear) Urine pH 6.5 (4.5-7.5) Ur Specific [place] 1.006 (1.000-1.030) Urine Protein Negative (Negative) Urine Glucose (UA) Negative (Negative) Medications Administered Current Inpatient Medications Acetaminophen (Acetaminophen 325 Mg Tab) 650 mg PO Q4H PRN PRN Reason: Pain or Fever Stop: 04/02/25 02:29 Albuterol (Albut/Ipratrop 3mg/0.5mg Neb 3 Ml Vial) 3 ml NEB QIDR DAYNE; Protocol Stop: 04/02/25 06:59 Last Admin: 03/04/25 11:03 Dose: 3 ml Albuterol (Albut/Ipratrop 3mg/0.5mg Neb 3 Ml Vial) 3 ml NEB Q4H PRN; Protocol PRN Reason: Shortness Of Breath Or Wheezing Stop: 04/02/25 02:29 Albuterol (Albuterol Hfa 8 Gm Inhaler) 2 puffs INH Q6H PRN PRN Reason: Shortness Of Breath Or Wheezing Stop: 04/02/25 04:43 Aspirin (Aspirin 81 Mg Ectab) 81 mg PO DAILY [facility] Stop: 04/02/25 08:59 Last Admin: 03/04/25 11:30 Dose: 81 mg Atorvastatin Calcium (Atorvastatin 40 Mg Tab) 40 mg PO DAILY [facility] Stop: 04/02/25 08:59 Last Admin: 03/04/25 08:45 Dose: 40 mg Buspirone HCl (Buspirone 5 Mg Tab) 5 mg PO BID [facility] Stop: 04/02/25 08:59 Last Admin: 03/04/25 08:45 Dose: 5 mg Calcium/Vitamin D (Calcium 600mg + Vit D 400 Iu Tab) 1 tab PO DAILY [facility] Stop: 04/02/25 08:59 Last Admin: 03/04/25 08:45 Dose: 1 tab Docusate Sodium (Docusate Sodium 100 Mg Cap) 100 mg PO BID PRN PRN Reason: constiaption Stop: 04/02/25 04:43 Famotidine (Famotidine 20 Mg Tab) 20 mg PO DAILY [facility] Stop: 04/02/25 08:59 Last Admin: 03/04/25 08:46 Dose: 20 mg Fenofibrate (Fenofibrate Nanocrystallized 145 Mg Tablet) 145 mg PO DAILY [facility] Stop: 04/02/25 08:59 Last Admin: 03/04/25 08:46 Dose: 145 mg Fluticasone Furoate (Fluticasone Furoate 200mcg 14 Puffs/Inhaler) 1 puffs INH DAILY [facility] Stop: 04/02/25 08:59 Last Admin: 03/04/25 08:46 Dose: 1 puffs Furosemide (Furosemide Inj 20 Mg/2 Ml Vial) 30 mg IV Q8H [facility] Stop: 04/03/25 10:55 Last Admin: 03/04/25 11:31 Dose: 30 mg Gabapentin (Gabapentin 100 Mg Cap) 100 mg PO BID [facility] Stop: 04/02/25 08:59 Last Admin: 03/04/25 08:46 Dose: 100 mg Heparin Sodium (Porcine) (Heparin Sod 5,000 Unit/0.5 Ml Vial) 5,000 units SQ Q12 [facility] Stop: 04/02/25 08:59 Last Admin: 03/04/25 09:30 Dose: Not Given Ceftriaxone Sodium (Rocephin) 2,000 mg in 50 mls @ 100 mls/hr IV Q24H [facility] Stop: 03/08/25 07:59 Last Infusion: 03/04/25 09:14 Dose: Infused Doxycycline Hyclate 100 mg/ (Dextrose) 100 mls @ 50 mls/hr IV Q12H [facility] Stop: 03/08/25 07:59 Last Infusion: 03/04/25 11:29 Dose: Infused Sodium Chloride (Nss) 1,000 mls @ 50 mls/hr IV .Q20H [facility] Stop: 03/06/25 10:59 Last Admin: 03/04/25 06:17 Dose: 50 mls/hr Isosorbide Mononitrate (Isosorbide Treutlen Extended Rel 30 Mg Tabcr) 30 mg PO DAILY [facility] Stop: 04/02/25 08:59 Last Admin: 03/04/25 08:46 Dose: 30 mg Lisinopril (Lisinopril 20 Mg Tab) 20 mg PO DAILY [facility] Stop: 04/02/25 08:59 Last Admin: 03/04/25 08:46 Dose: 20 mg Magnesium Chloride (Magnesium Chloride W/Calcium 64mg Delayed Rel Tab) 64 mg PO BID [facility] Stop: 04/02/25 08:59 Last Admin: 03/04/25 08:46 Dose: 64 mg Metoprolol Tartrate (Metoprolol Tartrate 25 Mg Tab) 25 mg PO BID [facility] Stop: 04/02/25 08:59 Last Admin: 03/04/25 08:47 Dose: 25 mg Mirtazapine (Mirtazapine Tab 15 Mg Tab) 15 mg PO HS [facility] Stop: 04/02/25 20:59 Last Admin: 03/03/25 20:49 Dose: 15 mg Nitroglycerin (Nitroglycerin Sl 0.4 Mg/Tab Tab) 0.4 mg SL Q5M PRN PRN Reason: Chest Pain Stop: 04/02/25 02:29 Pantoprazole Sodium (Pantoprazole 40 Mg Tab) 40 mg PO DAILY [facility] Stop: 04/02/25 08:59 Last Admin: 03/04/25 08:47 Dose: 40 mg Polyethylene Glycol (Polyethylene (Miralax) 17 Gm Pack) 17 gm PO DAILY PRN PRN Reason: Constipation Stop: 04/02/25 02:29 Potassium Chloride (Potassium Chloride Crtab 20 Meq Tabcr) 20 meq PO TID [facility] Stop: 04/02/25 13:59 Last Admin: 03/04/25 08:47 Dose: 20 meq Sertraline HCl (Sertraline Hcl 100 Mg Tablet) 100 mg PO DAILY [facility] Stop: 04/02/25 08:59 Last Admin: 03/04/25 08:47 Dose: 100 mg Umeclidinium/Vilanterol (Umeclidinium/Vilanterol 62.5/25mcg 7 Puffs/Inhaler) 1 puffs INH QAM [facility] Stop: 04/02/25 08:59 Last Admin: 03/04/25 08:46 Dose: 1 puffs
[2025-03-04 16:22] LABS: BUN Creatinine Ratio 18.3 (10-20); Calcium 8.8 mg/dl (8.6-10.3); Creatinine Clr Calc Pharmacy 23.9 ml/min; Potassium 3.9 mmol/L (3.5-5.1)
[2025-03-04] MEDS ORDERED: Nursing to Pharmacy Communication SCH (19:15)
[2025-03-04 20:19] LABS: Adenovirus F 40/41 PCR Not Detected (NotDetected); Astrovirus PCR Not Detected (NotDetected); Campylobacter PCR Not Detected (NotDetected); Cryptosporidium PCR Not Detected (NotDetected); Cyclospora cayetanensis PCR Not Detected (NotDetected); Entamoeba histolytica PCR Not Detected (NotDetected); Enteroaggregative E.coli(EAEC) Not Detected (NotDetected); Enteropathogenic E.coli (EPEC) Not Detected (NotDetected); Enterotoxigenic E.coli (ETEC) Not Detected (NotDetected); Giardia lamblia PCR Not Detected (NotDetected); Norovirus GI/GII PCR Not Detected (NotDetected); Plesiomonas shigelloides PCR Not Detected (NotDetected); Rotavirus A PCR Not Detected (NotDetected); Salmonella PCR Not Detected (NotDetected); Sapovirus PCR Not Detected (NotDetected); Shiga-like Toxin E.coli (STEC) Not Detected (NotDetected); Shigella/Enteroinvasive E.coli Not Detected (NotDetected); Vibrio cholerae PCR Not Detected (NotDetected); Vibrio species PCR Not Detected (NotDetected); Yersinia enterocolitica PCR Not Detected (NotDetected)
[2025-03-05 03:11] LABS: BUN Creatinine Ratio 19.2 (10-20); Calcium 9.4 mg/dl (8.6-10.3); Creatinine Clr Calc Pharmacy 21.7 ml/min; Potassium 4.9 mmol/L (3.5-5.1)
[2025-03-05 08:23] LABS: Phosphorus 2.1 mg/dl (2.5-4.9)
[2025-03-05] MEDS ORDERED: SODIUM PHOSPHATE 3 MMOL/1 ML 5 ML VIAL IV ONE (08:35)
--- NOTE | 2025-03-05 09:14 | Gastroenterology Progress Note ---
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 AM cortisol 22, Stool PCR negative NPO after midnight for EGD evaluation pending NA Continue PPI and Pepcid Supportive measures w/ antiemetics We appreciate assistance in the management of any serological abnormality and corrections to include: hemoglobin >7, INR <2, platelets >50,000, potassium levels >3.5 but <5.3, and sodium levels within 5 points of the reference range prior to endoscopic evaluation. I spent a total of 40 minutes on the date of service in review of patient's record, and previously obtained information in person and appropriate medical visit, discussion and education of plan, with patient and/or caregiver, placing orders for tests/referral/procedures as medically necessary and documentation of pertinent clinical information in patient's medical records for their visit today. (2) Nausea & vomiting: Admission and Anticipated Discharge Date Admission Date: March 03, 2025 Supervising Physician Co-Signing Physician Notes Patient and daughter noting history of heartburn indigestion previous ulcer and dysphagia type symptoms. Patient is avoided steak for years as she finds it is hard to go through. Even with chicken she states it has to be quite soft she has to cut it small and chew well. Certainly sounds like she may have underlying dysphagia or esophageal stricture. She is agreeable to endoscopy. As long as the sodium is improving ideally above 128 I believe we can safely perform an upper endoscopy tomorrow. Patient seems anxious to proceed in that regard. Potential complications include bleeding and perforation. Subjective Reflux, nausea, heartburn this AM. Agreeable to EGD tomorrow pending NA. Review of Systems Review of Systems: All other findings negative except as noted in HPI. Physical Exam Constitutional: WD/WN, vitals as above Gastrointestinal (Abdomen): normal bowel sounds, soft, nontender, no hepatosplenomegaly Results & Data Results & Data Vital Signs (Past 12 Hours) Vital Signs Temp Pulse Pulse Resp BP Pulse Ox O2 Del Method 03/05/25 07:17 87 17 96 Room Air 03/05/25 03:07 97.9 F 84 18 109/70 94 Room Air 03/04/25 23:18 98.1 F 99 H 18 137/78 97 Room Air 03/04/25 23:02 83 Laboratory Results 03/05/25 03/04/25 03/04/25 Range/Units 02:13 18:25 15:43 Sodium 124 L 124 L (136-145) mmol/L Potassium 4.9 D 3.9 (3.5-5.1) mmol/L Chloride 91 L 92 L (98-107) mmol/L Carbon Dioxide 26 24 (21-32) mmol/L Anion Gap 7 8 (3-11) BUN 23 20 (6-23) mg/dl Creatinine 1.20 1.09 (0.6-1.2) mg/dl Est Cr Clr Drug Dosing 21.7 23.9 ml/min eGFR 46.62 52.32 BUN/Creatinine Ratio 19.2 18.3 (10-20) Glucose 104 H 116 H (70-99(Fasting)) mg/dl Calcium 9.4 8.8 (8.6-10.3) mg/dl Phosphorus 2.1 L (2.5-4.9) mg/dl Stl C. cayetanensis PCR Not Detected (NotDetected) Stool Rotavirus A PCR Not Detected (NotDetected) Stl Adenov F 40/41 PCR Not Detected (NotDetected) Stool Astrovirus (PCR) Not Detected (NotDetected) Stool Campylobacter PCR Not Detected (NotDetected) Stool Cryptosporidium PCR Not Detected (NotDetected) Stl E.coli Shiga Tox PCR Not Detected (NotDetected) Stl Enterotoxigenic E PCR Not Detected (NotDetected) Stool EPEC (PCR) Not Detected (NotDetected) Stool EAEC (PCR) Not Detected (NotDetected) Stl E. histolytica PCR Not Detected (NotDetected) Stool Giardia Lamblia PCR Not Detected (NotDetected) Stool Salmonella PCR Not Detected (NotDetected) Stool Sapovirus (PCR) Not Detected (NotDetected) Stl P. shigelloides PCR Not Detected (NotDetected) Stl Shigella/EIEC PCR Not Detected (NotDetected) St Y.enterocolitica PCR Not Detected (NotDetected) Stool Vibrio (PCR) Not Detected (NotDetected) Stl Vibrio cholerae PCR Not Detected (NotDetected) Stl Norovirus GI/GII PCR Not Detected (NotDetected) PG Care Time/CCT Total # of Minutes Spent Total Time Spent with Patient: Total time spent is greater than 50% in coordination of care (as documented) at patient's floor/unit and/or counseling patient: Coding Level of Care Code 38850 SUB INP/OBS CARE 2/35MIN Diagnoses Diarrhea R19.7 Nausea & vomiting R11.2
[2025-03-05] MEDS: CALCIUM CARBONATE 500 MG CHEWABLE TAB PO PRN (09:30)
[2025-03-05] MEDS: POT PHOSPHATE MONOBASIC W/ SOD TAB PO SCH (10:30)
--- NOTE | 2025-03-05 11:14 | Hospitalist Progress Note ---
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, multiple lung nodules, hiatal hernia, seasonal allergic rhinitis, renal artery stenosis, mesenteric artery stenosis, iliac artery stenosis bilateral, abdominal aortic aneurysm, hypertension, history of CAD, severe protein calorie moderation, GERD, dysphagia, CKD stage III, restless leg syndrome, lumbar degenerative disease, anemia due to CKD stage III, general anxiety disorder, tobacco use disorder, mild cognitive disorder., ambulates with a cane and lives with her daughter went to [facility] because of nausea vomiting and abdominal pain going for last 10 days and was found to have pneumonia, COPD exacerbation and hyponatremia and was transferred here for further care. Patient says for last 10 days she is having lot of nausea and vomiting and not able to eat anything. Associated with abdominal pain. Currently abdominal pain resolved. Having some diarrhea with black stools. Micturating okay. Denies any fevers. Having cough and bringing some phlegm. Denies any chest pain or shortness of breath. No headache. Sometimes feels dizzy associated with some double vision when she stands up quickly and and then resolves. Currently resting comfortably saturating okay on room air and hemodynamically stable. Marleni went to [facility] and was found to have some wheezing. Somewhat tachypneic and heart rates was 90s. EKG was okay. Has elevated WBC, hemoglobin was okay. Alert and oriented. Glucose was 132. Sodium was 119. K was 2.9. D-dimer was elevated at 1200. CTA chest no PE . CXR showed right lower lung pneumonia. She got 1 L of fluids before sodium was checked. [facility] ER had talked with the nephrology on-call and was advised for urine studies and also close follow-up of the labs and patient was placed on maintenance fluids. Initial recheck sodium went to 118 and repeat recheck sodium went to 120 before she was transferred here. Acute Hyponatremia History of SIADH with severe cachexia likely secondary to underlying chronic COPD presented with nausea vomiting and diarrhea for a total of 10 days duration Presented with sodium of 118 Received D5 water at rate of 80 mL/h Sodium level went up to 124 early this morning and this morning it has been 121 Will check serum osmolality-Low at 267, urine osmolality low at 276 and urine sodium levels- was 76 Appreciate nephrology input and recommendation- has been put on normal saline at 50 mL/h and also IV Lasix 20 mg IV every 8 hourly and no urea at this time Will restrict fluid intake to 1000 mL/day Sodium level is slightly better at 126 today and will continue current management PRP will be done twice daily Nausea vomiting and abdominal pain- likely infectious Her on and off diarrhea could be related to mesenteric stenosis per Vascular surgery Will check stool studies. tool for hemeoccult-Awaiting collection and results Consult GI for any further recommendations- appreciate GI input and recommendation no EGD at this time Nausea and vomiting have resolved and the patient is tolerating regular diet No more nausea no vomiting and no diarrhea Still has nausea and epigastric discomfort-Tums has been given for dyspepsia Will have EGD tomorrow Pneumonia- aspiration pneumonia has been ruled out Right lower lobe pneumonia on chest x-ray On the CAT scan no obvious pneumonia Empiric Rocephin and doxycycline Will continue empiric Rocephin and doxycycline Antibiotics will be discontinued tomorrow Antibiotic has been discontinued COPD Currently seems stable Will place on DuoNebs in the clock and as needed and continue home inhalers Will monitor DuoNeb has been changed to as needed and she is saturating normally on room air Abdominal aortic aneurysm CT abdomen pelvis with IV contrast done at [facility] shows infrarenal abdominal aortic aneurysm craniocaudal length of approximately 6.9 cm in transverse diameter up to 4.2 cm and also ascending thoracic aortic measures 3.3cm Patient also has mesenteric stenosis >70% and celiac stenosis follows with vascular surgery no indications for operative intervention per vascular surgery As mentioned above. Asked images to be transferred to our facility. Celiac and mesenteric stenosis Carotid stenosis Can review images with vascular surgery on aspirin and statin CKD stage III Creatinine 0.8 Will follow labs Mild elevation of troponin Mostly demand ischemia Will follow serial cardiac enzymes- negative for any ACS Hypertension On lisinopril Imdur and metoprolol To check with patient if she is still on amlodipine Blood pressure has been running low at 96/60advised to drink more fluid Depression On Zoloft, Remeron and BuSpar Meds be causing hyponatremia GERD Omeprazole and famotidine Hyperlipidemia Statin Tobacco abuse Needs counseling Malnutrition Dietitian consult Will try boost DVT prophylaxis Heparin subcu follow stool for hemeoccult Disposition Telemetry Full code. Admission and Anticipated Discharge Date Admission Date: March 03, 2025 Subjective 03/03/2025 The patient was seen and examined in telemetry unit She has been feeling a lot better and has been tolerating diet Denies any significant nausea and/or vomiting and diarrhea is controlled 03/04/2025 The patient was seen and examined in telemetry unit in presence of the daughter She has been feeling much better and does not seems to be in confusion Denies any abdominal pain, nausea or vomiting and diarrhea is controlled 03/05/2025 Patient was seen and examined in telemetry unit She has been nauseated this morning with minimal cough Denies any other significant symptoms She will have an EGD tomorrow Will get PT and OT evaluation prior to discharge and likely to mediate to a step O2 saturation test before discharge as well Review of Systems Review of Systems: All systems reviewed and are unremarkable except as noted below Physical Exam Physical Exam: Sitting on the bed with nausea and some epigastric discomfort Constitutional: + ill appearing and + thin Eyes: PERRL, conjunctivae normal, anicteric sclerae ENMT: external ear and nose normal, oropharynx normal Neck: trachea midline, no thyromegaly Respiratory: no respiratory distress Auscultation: lungs clear to auscultation bilaterally Cardiovascular: Rate/Rhythm: regular rate and regular rhythm; not tachycardic Heart Sounds: normal S1 and normal S2; no murmur Extremities: no edema Gastrointestinal (Abdomen): Inspection/Auscultation: normal bowel sounds; abdomen not distended Percussion/Palpation: abdomen soft; abdomen nontender Neurologic: normal touch/pain/proprioception and moves all extremities; no focal motor deficits Lymphatic: no cervical or axillary lymphadenopathy Results & Data Results & Data Vital Signs (Past 12 Hours) Vital Signs Temp Pulse Pulse Resp BP Pulse Ox O2 Del Method 03/05/25 10:37 36.5 C 76 18 128/65 98 Room Air 03/05/25 08:00 82 03/05/25 08:00 Room Air 03/05/25 07:17 87 17 96 Room Air 03/05/25 03:07 36.6 C 84 18 109/70 94 Room Air 03/04/25 23:18 36.7 C 99 H 18 137/78 97 Room Air Laboratory Results [facility] 03/04/25 03/05/25 15:43 02:13 Sodium 124 L 124 L Potassium 3.9 4.9 D Chloride 92 L 91 L Carbon Dioxide 24 26 BUN 20 23 Creatinine 1.09 1.20 Glucose 116 H 104 H Calcium 8.8 9.4 Medications Administered Current Inpatient Medications Acetaminophen (Acetaminophen 325 Mg Tab) 650 mg PO Q4H PRN PRN Reason: Pain or Fever Stop: 04/02/25 02:29 Albuterol (Albut/Ipratrop 3mg/0.5mg Neb 3 Ml Vial) 3 ml NEB Q4H PRN; Protocol PRN Reason: Shortness Of Breath Or Wheezing Stop: 04/02/25 02:29 Albuterol (Albuterol Hfa 8 Gm Inhaler) 2 puffs INH Q6H PRN PRN Reason: Shortness Of Breath Or Wheezing Stop: 04/02/25 04:43 Aspirin (Aspirin 81 Mg Ectab) 81 mg PO DAILY [facility] Stop: 04/02/25 08:59 Last Admin: 03/05/25 08:17 Dose: 81 mg Atorvastatin Calcium (Atorvastatin 40 Mg Tab) 40 mg PO DAILY [facility] Stop: 04/02/25 08:59 Last Admin: 03/05/25 08:17 Dose: 40 mg Buspirone HCl (Buspirone 5 Mg Tab) 5 mg PO BID [facility] Stop: 04/02/25 08:59 Last Admin: 03/05/25 08:17 Dose: 5 mg Calcium Carbonate (Calcium Carbonate 500 Mg Chewable Tab) 500 mg PO Q6H PRN PRN Reason: Indigestion Stop: 04/04/25 08:59 Last Admin: 03/05/25 09:30 Dose: 500 mg Calcium/Vitamin D (Calcium 600mg + Vit D 400 Iu Tab) 1 tab PO DAILY [facility] Stop: 04/02/25 08:59 Last Admin: 03/05/25 08:17 Dose: 1 tab Docusate Sodium (Docusate Sodium 100 Mg Cap) 100 mg PO BID PRN PRN Reason: constiaption Stop: 04/02/25 04:43 Famotidine (Famotidine 20 Mg Tab) 20 mg PO DAILY [facility] Stop: 04/02/25 08:59 Last Admin: 03/05/25 09:30 Dose: 20 mg Fenofibrate (Fenofibrate Nanocrystallized 145 Mg Tablet) 145 mg PO DAILY [facility] Stop: 04/02/25 08:59 Last Admin: 03/05/25 08:17 Dose: 145 mg Fluticasone Furoate (Fluticasone Furoate 200mcg 14 Puffs/Inhaler) 1 puffs INH DAILY [facility] Stop: 04/02/25 08:59 Last Admin: 03/05/25 08:15 Dose: 1 puffs Furosemide (Furosemide Inj 20 Mg/2 Ml Vial) 30 mg IV Q8H DAYNE Stop: 04/03/25 10:55 Last Admin: 03/05/25 05:44 Dose: 30 mg Gabapentin (Gabapentin 100 Mg Cap) 100 mg PO BID [facility] Stop: 04/02/25 08:59 Last Admin: 03/05/25 08:17 Dose: 100 mg Heparin Sodium (Porcine) (Heparin Sod 5,000 Unit/0.5 Ml Vial) 5,000 units SQ Q12 [facility] Stop: 04/02/25 08:59 Last Admin: 03/05/25 08:13 Dose: 5,000 units Sodium Chloride (Nss) 1,000 mls @ 50 mls/hr IV .Q20H DAY[facility] Stop: 03/06/25 10:59 Last Admin: 03/05/25 02:18 Dose: 50 mls/hr Isosorbide Mononitrate (Isosorbide Ward Extended Rel 30 Mg Tabcr) 30 mg PO DAILY DAY[facility] Stop: 04/02/25 08:59 Last Admin: 03/05/25 08:17 Dose: 30 mg Lisinopril (Lisinopril 20 Mg Tab) 20 mg PO DAILY [facility] Stop: 04/02/25 08:59 Last Admin: 03/05/25 08:17 Dose: 20 mg Magnesium Chloride (Magnesium Chloride W/Calcium 64mg Delayed Rel Tab) 64 mg PO BID DAY[facility] Stop: 04/02/25 08:59 Last Admin: 03/05/25 08:16 Dose: 64 mg Metoprolol Tartrate (Metoprolol Tartrate 25 Mg Tab) 25 mg PO BID DAYNE Stop: 04/02/25 08:59 Last Admin: 03/05/25 08:17 Dose: 25 mg Mirtazapine (Mirtazapine Tab 15 Mg Tab) 15 mg PO HS DAYNE Stop: 04/02/25 20:59 Last Admin: 03/04/25 20:32 Dose: 15 mg Nitroglycerin (Nitroglycerin Sl 0.4 Mg/Tab Tab) 0.4 mg SL Q5M PRN PRN Reason: Chest Pain Stop: 04/02/25 02:29 Pantoprazole Sodium (Pantoprazole 40 Mg Tab) 40 mg PO DAILY [facility] Stop: 04/02/25 08:59 Last Admin: 03/05/25 08:17 Dose: 40 mg Polyethylene Glycol (Polyethylene (Miralax) 17 Gm Pack) 17 gm PO DAILY PRN PRN Reason: Constipation Stop: 04/02/25 02:29 Potassium Chloride (Potassium Chloride Crtab 20 Meq Tabcr) 20 meq PO TID DAYNE Stop: 04/02/25 13:59 Last Admin: 03/05/25 08:19 Dose: 20 meq Potassium Phosphate (Pot Phosphate Monobasic W/ Sod Tab) 1 tab PO Q8H [facility] Stop: 03/06/25 00:46 Last Admin: 03/05/25 10:30 Dose: 1 tab Sertraline HCl (Sertraline Hcl 100 Mg Tablet) 100 mg PO DAILY [facility] Stop: 04/02/25 08:59 Last Admin: 03/05/25 08:17 Dose: 100 mg Umeclidinium/Vilanterol (Umeclidinium/Vilanterol 62.5/25mcg 7 Puffs/Inhaler) 1 puffs INH QAM [facility] Stop: 04/02/25 08:59 Last Admin: 03/05/25 08:15 Dose: 1 puffs
--- NOTE | 2025-03-05 11:16 | Nephrology Progress Note ---
Date of Service March 05, 2025 Assessment & Plan (1) Hyponatremia: Plan: has h/o this from Underlying SIADH (with Severe Cachexia-weighs 34 kilo though per report stable at this weight for many years and Underlying mild COPD) >> but here the picture on admission is more polydipsia. Came in with Worsened Serum Na -- was 118 at [facility] and last one was 123. Cause was nausea and vomiting with Almost total lack of Solid food intake but was still drinking lot of liquids. this created a big mismatch and Caused Na to go lower. Also Nausea triggers more ADH release making her Na go lower. She came in w/ extremely/inappropriately dilute urine (sg 1006; urine osms 246); serum osms 267 same day. Na was up to 126 yesterday AM but down to 124 this am; improvement stalled >order in to repeat urine osms and lytes now >needs strict I/O and daily standing weight, daily urine osms >> all of this is challenging in her condition w/ no landers > will try to avoid one but if improvement remains stalled may need to revisit >>encourage po intake > eating while I evaluated her >>continue FR 1L/day; protein shakes do NOT count toward FR > so ordered >continue tid labs since improvement stalled but low threshold for bid >given her N/Vomiting > try to avoid salt tabs or/and urea >>control N and pain both of which can make hyponatremia worse >cont to maintain K 4.0 >> put K on hold w/ K 4.9 this am >>increase NS to 70ml/hr for volume and Salt load and continue lasix 30 mg iv q8hr to lower urine osm and cause aquaresis. in order to do EGD safely, GI asking sNa 130 or better >> given this suggest a landers and bmp q8hr Care repeatedly coordinated w/ Stefan See and Sarwat regarding sodium modification strategy, need for landers, goals of care discussion in person, by phone and by TText; we are in agreement. (2) Nausea & vomiting: Plan: ongoing issue w/ heart burn, N, dry heaves. EGD planned for am to evaluate HB/N. (3) Goals of care, counseling/discussion: Plan: GOC d/w pt and daughters for 15 minutes >> agree w/ palliative evaluation so GOC discussion can continue Admission and Anticipated Discharge Date Admission Date: March 03, 2025 Subjective no acute interval events clinically. ongoing heartburn and N today; no emesis but some dry heaves. denies sob, edema, other pain. denies thirst. daughter at bedside; other daughters on phone. seen on late AM rounds; pt & daughter contemplating withdrawing care/comfort measures but they also do not appear to understand what PHYSICAL THERAPIST CLINIC DIRECTOR is Review of Systems 2 Review of Systems: All systems reviewed & are unremarkable except as noted in Subjective Physical Exam 2 Constitutional: well developed and + cachectic Eyes: EOM intact bilaterally ENMT: Mouth: + dry oral mucous membranes Neck: no nuchal rigidity Respiratory: normal respiratory effort Auscultation: + diminished lung sounds Gastrointestinal (Abdomen): Inspection/Auscultation: normal bowel sounds P ercussion/Palpation: abdomen soft; abdomen nontender Musculoskeletal: Extremities: strength 5/5 throughout Skin: no rashes, warm and dry Neurologic: reyes, fluent speech, no tremor Results & Data Vital Signs (Past 12 Hours) Vital Signs Temp Pulse Pulse Resp BP Pulse Ox O2 Del Method 03/05/25 10:37 36.5 C 76 18 128/65 98 Room Air 03/05/25 08:00 82 03/05/25 08:00 Room Air 03/05/25 07:17 87 17 96 Room Air 03/05/25 03:07 36.6 C 84 18 109/70 94 Room Air 03/04/25 23:18 36.7 C 99 H 18 137/78 97 Room Air Laboratory Results 03/04/25 07:08 03/05/25 02:13
--- NOTE | 2025-03-05 13:48 | Communication Note ---
Palliative Care Note Patient seen and examined at bedside. Daughter Aysha also present, discussed goals and values, see conversation below. Patient does get pain after eating and some nausea with occasional vomiting. Pain is dull ache. Otherwise, she is tired of not feeling well. [facility] minutes discussing goals and values with patient and daughter Aysha. Meeting began by discussing her current clinical condition, including chronic illnesses including severe COPD, renal/mesenteric/iliac artery stenosis, chronic AAA, and CAD, and acute illnesses including CAP and acute on chronic hyponatremia. Patient and family are understanding of these conditions. Patient states her goals are to feel better and relax at home, and is willing to do what it takes to make those things happens medically. That includes procedures, catheters and other potential interventions. She states she is hesitant to want to come to the hospital, which is why she sometimes is resistant with her family in regards to coming to the hospital. She is hesitant only because she does not feel she needs to go that often. She enjoys spending time at home with family and her pets. She is scared of suffering and does not want to suffer. Discussed resuscitation at length, risks and benefits explained at length. Given frailty and severe COPD/vascular d isease, resuscitation would not be recommended as it would likely cause suffering without significant benefit to patient. She agrees with this and does not want intubation or chest compressions as they are unlikely to provide the quality of life she wants to live. Patient is DNRDNI. Will plan on family meeting to discuss family and patients worries and concerns further and get everyone on same page. Discussed decision maker in event patient unable to make decisions for herself. She would like her daughter Malgorzata to be her POA, and has a POLST at home reflecting this per Aysha. However, she would want her daughters to make decisions on her behalf together. Gen: A&O 3 NAD, sarcopena/cachexia noted HEENT: NCAT, EOMI, not icteric. External ears normal. No rhinorrhea. Moist mu cous membranes. Neck: Supple, full range of motion, no observable masses, No meningeal sign. Lungs: No Respiratory distress. CV: RRR, no edema. Abdomen: Soft, nondistended, No rebound tenderness. MSK: No joint swelling, no redness. does appear to have diffuse weakness Skin: No rashes, petechiae, lesions. Normal color per patient. Neuro: Normal Gait, Grossly intact. Psych: Appropriate for situation. A/P: #Severe COPD #Chronic Mesenteric/Renal/Iliac Stenosis #Acute on Chronic Hyponatremia -patient is chronically ill, with numerous comorbid conditions -patient still doing ADLs, ECOG 2 at this time, weight relatively consistent for past several years -prognosis on scale of months to years, notwithstanding acute events, given relative stability of symptoms and functional status Plan: -DNRDNI, order placed in chart (will be reversed for procedures) -follow up with palliative care outpatient (will message nursing team to coordinate) -Malgorzata (daughter) is POA as chosen by patient, has POLST at home, can bring in before discharge #Post Ingestion Nausea/Vomiting #Post Ingestion Epigastric Pain -gets nausea about 1 hour after eating, possibly suggestive of gastroparesis 2/2 multivessel stenosis -could also be 2/2 chronic mesenteric ischemia vs. other process such as ulceration/gastritis -pain likely 2/2 chronic mesenteric ischemia, describes as dull ache Plan: -start reglan 5mg tid before meals pending EGD evaluation -start zofran 4mg PO q6hrs prn, ordered -continue tylenol for pain, SNRI such as duloxetine will be considered as course unfolds -avoid opioids and NSAIDs at this time Date of Service: March 05, 2025
[2025-03-05] MEDS ORDERED: ONDANSETRON 4 MG OD TAB PO PRN (14:18)
[2025-03-05 15:31] LABS: Urine Potassium 44.8 mmol/L
[2025-03-05 15:31] LABS: BUN Creatinine Ratio 23.1 (10-20); Creatinine Clr Calc Pharmacy 24.4 ml/min; Potassium 3.9 mmol/L (3.5-5.1)
--- NOTE | 2025-03-05 16:56 | Communication Note ---
Date of Service: March 05, 2025 Events of the day reviewed; repeat bmp shows K and Na both dropped, latter to 122. León placed SBP soft -hold lisinopril starting tomorrow -dose of tolvaptan starting today -bmp q6 hr to continue, next one 2200 (order in) - >>> may need hypertonic saline overnight in 50-100 mL boluses to improve sodium if vaptan not effective >> give bolus, check BMP stat after 1 hr; repeat as needed -stopped NS and held lasix and (after one dose more) potassium Dr See updated via TText.
[2025-03-05] MEDS: POTASSIUM CHLORIDE CRTAB 20 MEQ TABCR PO ONE (17:25)
[2025-03-05] MEDS: TOLVAPTAN 15 MG TABLET PO SCH (17:25)
[2025-03-05 23:49] LABS: BUN Creatinine Ratio 25.4 (10-20); Calcium 9.3 mg/dl (8.6-10.3); Creatinine Clr Calc Pharmacy 23.1 ml/min; Potassium 4.7 mmol/L (3.5-5.1)
[2025-03-06 03:20] LABS: BUN Creatinine Ratio 23.7 (10-20); Calcium 9.7 mg/dl (8.6-10.3); Creatinine Clr Calc Pharmacy 20.1 ml/min; Potassium 4.6 mmol/L (3.5-5.1)
[2025-03-06 06:11] LABS: Basophils # (auto) 0.05 K/uL (0.00-0.20); Basophils % (auto) 0.4 %; Eosinophils # (auto) 0.09 K/uL (0.00-0.50); Eosinophils % (auto) 0.7 %; Hemoglobin 12.3 g/dl (12.0-16.0); Immature Granulocytes # (auto) 0.19 K/uL (0.01-0.20); Immature Granulocytes % (auto) 1.4 %; Lymphocytes # (auto) 2.41 K/uL (1.20-3.40); Lymphocytes % (auto) 17.9 %; Mean Corpuscular Hemoglobin 30.4 pg (25.0-34.0); Mean Corpuscular Hgb Conc 36.2 g/dL (32.0-36.0); Mean Corpuscular Volume 84.2 fL (80.0-100.0); Mean Platelet Volume 8.6 fL (9.4-12.4); Monocytes # (auto) 1.09 K/uL (0.11-0.59); Monocytes % (auto) 8.1 %; Neutrophils # (auto) 9.65 K/uL (1.40-6.50); Neutrophils % (auto) 71.5 %; Platelet Count 347 K/uL (130-400); RDW Standard Deviation 40.4 fL (36.4-46.3); Red Blood Count 4.04 M/uL (4.20-5.40); White Blood Count 13.48 K/ul (4.8-10.8)
[2025-03-06 06:26] LABS: Magnesium 1.3 mg/dl (1.7-2.4); Phosphorus 3.9 mg/dl (2.5-4.9)
[2025-03-06] MEDS: MAGNESIUM SULFATE / D5W 1 GM/100 ML BAG IV SCH (08:58)
--- NOTE | 2025-03-06 09:27 | Gastroenterology Progress Note ---
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 AM cortisol 22, Stool PCR negative NPO for EGD this AM Continue PPI and Pepcid Supportive measures w/ antiemetics Thank you for allowing us to participate in the care of this patient. Please call with any acute changes, questions or concerns. Please see addendum below with additional recommendation from my supervising physician. (2) Nausea & vomiting: Admission and Anticipated Discharge Date Admission Date: March 03, 2025 Supervising Physician Co-Signing Physician Notes Sodium 127. Patient feels well. EGD today to evaluate for dysphagia progressive weight loss. Risk benefits discussed informed consent obtained Subjective NPO for EGD. Questions answered. Review of Systems Review of Systems: All other findings negative except as noted in HPI. Physical Exam Constitutional: WD/WN, vitals as above Gastrointestinal (Abdomen): normal bowel sounds, soft, nontender, no hepatosplenomegaly Skin: no rashes, warm and dry Results & Data Results & Data Vital Signs (Past 12 Hours) Vital Signs Temp Pulse Pulse Resp BP Pulse Ox O2 Del Method 03/06/25 08:36 Room Air 03/06/25 07:59 99.1 F 82 18 109/67 93 Room Air 03/06/25 07:00 78 03/06/25 03:25 97.9 F 79 16 122/65 95 Room Air 03/05/25 23:09 98.2 F 87 16 112/88 95 Room Air Laboratory Results 03/06/25 03/06/25 03/05/25 Range/Units 05:49 02:50 22:34 WBC 13.48 H (4.8-10.8) K/ul RBC 4.04 L (4.20-5.40) M/uL Hgb 12.3 (12.0-16.0) g/dl Hct 34.0 L (37.0-47.0) % MCV 84.2 (80.0-100.0) fL MCH 30.4 (25.0-34.0) pg MCHC 36.2 H (32.0-36.0) g/dL RDW Std Deviation 40.4 (36.4-46.3) fL RDW Coeff of Carlos Manuel 13.0 (11.5-14.5) % Plt Count 347 (130-400) K/uL MPV 8.6 L (9.4-12.4) fL Immature Gran % (Auto) 1.4 % Neut % (Auto) 71.5 % Lymph % (Auto) 17.9 % [place] % (Auto) 8.1 % Eos % (Auto) 0.7 % Baso % (Auto) 0.4 % Neut # (Auto) 9.65 H (1.40-6.50) K/uL Lymph # (Auto) 2.41 (1.20-3.40) K/uL [place] # (Auto) 1.09 H (0.11-0.59) K/uL Eos # (Auto) 0.09 (0.00-0.50) K/uL Baso # (Auto) 0.05 (0.00-0.20) K/uL Immature Gran # (Auto) 0.19 (0.01-0.20) K/uL Sodium 127 L 125 L (136-145) mmol/L Potassium 4.6 4.7 D (3.5-5.1) mmol/L Chloride 93 L 92 L (98-107) mmol/L Carbon Dioxide 25 24 (21-32) mmol/L Anion Gap 9 9 (3-11) BUN 31 H 29 H (6-23) mg/dl Creatinine 1.31 H 1.14 (0.6-1.2) mg/dl Est Cr Clr Drug Dosing 20.1 23.1 ml/min eGFR 41.96 49.58 BUN/Creatinine Ratio 23.7 H 25.4 H (10-20) Glucose 132 H 111 H (70-99(Fasting)) mg/dl Calcium 9.7 9.3 (8.6-10.3) mg/dl Phosphorus 3.9 D (2.5-4.9) mg/dl Magnesium 1.3 L (1.7-2.4) mg/dl Urine Osmolality (500-800) mOsm/kg Urine Sodium mmol/L Urine Potassium mmol/L Urine Chloride mmol/L 03/05/25 03/05/25 Range/Units 14:24 13:55 WBC (4.8-10.8) K/ul RBC (4.20-5.40) M/uL Hgb (12.0-16.0) g/dl Hct (37.0-47.0) % MCV (80.0-100.0) fL MCH (25.0-34.0) pg MCHC (32.0-36.0) g/dL RDW Std Deviation (36.4-46.3) fL RDW Coeff of Carlos Manuel (11.5-14.5) % Plt Count (130-400) K/uL MPV (9.4-12.4) fL Immature Gran % (Auto) % Neut % (Auto) % Lymph % (Auto) % [place] % (Auto) % Eos % (Auto) % Baso % (Auto) % Neut # (Auto) (1.40-6.50) K/uL Lymph # (Auto) (1.20-3.40) K/uL [place] # (Auto) (0.11-0.59) K/uL Eos # (Auto) (0.00-0.50) K/uL Baso # (Auto) (0.00-0.20) K/uL Immature Gran # (Auto) (0.01-0.20) K/uL Sodium 122 L (136-145) mmol/L Potassium 3.9 D (3.5-5.1) mmol/L Chloride 89 L (98-107) mmol/L Carbon Dioxide 24 (21-32) mmol/L Anion Gap 9 (3-11) BUN 25 H (6-23) mg/dl Creatinine 1.08 (0.6-1.2) mg/dl Est Cr Clr Drug Dosing 24.4 ml/min eGFR 52.90 BUN/Creatinine Ratio 23.1 H (10-20) Glucose 115 H (70-99(Fasting)) mg/dl Calcium 9.0 (8.6-10.3) mg/dl Phosphorus (2.5-4.9) mg/dl Magnesium (1.7-2.4) mg/dl Urine Osmolality 316 L (500-800) mOsm/kg Urine Sodium 54 mmol/L Urine Potassium 44.8 mmol/L Urine Chloride 96 mmol/L PG Care Time/CCT Total # of Minutes Spent Total Time Spent with Patient: Total time spent is greater than 50% in coordination of care (as documented) at patient's floor/unit and/or counseling patient: Coding Level of Care Code None Diagnoses Diarrhea R19.7 Nausea & vomiting R11.2
--- NOTE | 2025-03-06 09:57 | Nephrology Progress Note ---
Date of Service March 06, 2025 Assessment & Plan Admission and Anticipated Discharge Date Admission Date: March 03, 2025 Subjective Assessment & Plan (1) Acute hyponatremia: has h/o this from Underlying SIADH ( with Severe Cachexia-weighs 34 kilo and Underlying COPD). Currently Came in with Worsened Serum na --was 118 at [facility] and last one was 123. Cause was nausea and vomiting with Almost total lack of Solid food intake but was still drinking lot of liquids. this created a big mismatch and Caused Na to go lower. Also Nausea triggers more ADH release making her Na go lower. Currently NPO so can continue NS 70ml/hr for volume and Salt load. na is 127 this AM. might be hard to raise it further. Does have chronic Hyponatremia But will also phoebe that with Iv lasix / raise it to 30 mg iv q8hr to lower urine osm and cause aquaresis. Given her nausea and vomiting will try to mange without urea--very hard to swallow FFR 1000 ml. Low mag despite supplement so give iv mag x 2 (2) Nausea & vomiting: Much better now. S--having n and poor PO and and also some diarrhea. na is better but mag is low. getting Scope today ROS--see HPI. 12 Systems reviewed and negative Physical Exam Physical Exam: General- Not in distress. very Thin and frail. Normal accurate Speech MM--moist. Neck- supple, no JVD. Lungs- clear to auscultation . Prolonged wheezing Heart- regular rhythm; no murmur Abdomen- soft, nontender Extremities- no edema Neuro- alert, oriented Results & Data Vital Signs (Past 12 Hours) Vital Signs Temp Pulse Pulse Resp BP Pulse Ox O2 Del Method 03/06/25 08:36 Room Air 03/06/25 07:59 37.3 C 82 18 109/67 93 Room Air 03/06/25 07:00 78 03/06/25 03:25 36.6 C 79 16 122/65 95 Room Air 03/05/25 23:09 36.8 C 87 16 112/88 95 Room Air
[2025-03-06] MEDS ORDERED: MAGNESIUM SULFATE / D5W 1 GM/100 ML BAG IV SCH (10:00)
--- NOTE | 2025-03-06 11:10 | Hospitalist Progress Note ---
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, multiple lung nodules, hiatal hernia, seasonal allergic rhinitis, renal artery stenosis, mesenteric artery stenosis, iliac artery stenosis bilateral, abdominal aortic aneurysm, hypertension, history of CAD, severe protein calorie moderation, GERD, dysphagia, CKD stage III, restless leg syndrome, lumbar degenerative disease, anemia due to CKD stage III, general anxiety disorder, tobacco use disorder, mild cognitive disorder., ambulates with a cane and lives with her daughter went to [facility] because of nausea vomiting and abdominal pain going for last 10 days and was found to have pneumonia, COPD exacerbation and hyponatremia and was transferred here for further care. Patient says for last 10 days she is having lot of nausea and vomiting and not able to eat anything. Associated with abdominal pain. Currently abdominal pain resolved. Having some diarrhea with black stools. Micturating okay. Denies any fevers. Having cough and bringing some phlegm. Denies any chest pain or shortness of breath. No headache. Sometimes feels dizzy associated with some double vision when she stands up quickly and and then resolves. Currently resting comfortably saturating okay on room air and hemodynamically stable. Marleni went to [facility] and was found to have some wheezing. Somewhat tachypneic and heart rates was 90s. EKG was okay. Has elevated WBC, hemoglobin was okay. Alert and oriented. Glucose was 132. Sodium was 119. K was 2.9. D-dimer was elevated at 1200. CTA chest no PE . CXR showed right lower lung pneumonia. She got 1 L of fluids before sodium was checked. [facility] ER had talked with the nephrology on-call and was advised for urine studies and also close follow-up of the labs and patient was placed on maintenance fluids. Initial recheck sodium went to 118 and repeat recheck sodium went to 120 before she was transferred here. Acute Hyponatremia History of SIADH with severe cachexia likely secondary to underlying chronic COPD presented with nausea vomiting and diarrhea for a total of 10 days duration Presented with sodium of 118 Received D5 water at rate of 80 mL/h Sodium level went up to 124 early this morning and this morning it has been 121 Will check serum osmolality-Low at 267, urine osmolality low at 276 and urine sodium levels- was 76 Appreciate nephrology input and recommendation- has been put on normal saline at 50 mL/h and also IV Lasix 20 mg IV every 8 hourly and no urea at this time Will restrict fluid intake to 1000 mL/day Sodium level is slightly better at 126 today and will continue current management PRP will be done twice daily Sodium level is minimally elevated at 127 today and she has been started with tolvaptan and lisinopril is on hold Will keep monitoring the PRP Nausea vomiting and abdominal pain- likely infectious Her on and off diarrhea could be related to mesenteric stenosis per Vascular surgery Will check stool studies. tool for hemeoccult-Awaiting collection and results Consult GI for any further recommendations- appreciate GI input and recommendation no EGD at this time Nausea and vomiting have resolved and the patient is tolerating regular diet No more nausea no vomiting and no diarrhea Still has nausea and epigastric discomfort-Tums has been given for dyspepsia Will have EGD tomorrow Symptomatically much better and will have EGD today Pneumonia- aspiration pneumonia has been ruled out Right lower lobe pneumonia on chest x-ray On the CAT scan no obvious pneumonia Empiric Rocephin and doxycycline Will continue empiric Rocephin and doxycycline Antibiotics will be discontinued tomorrow Antibiotic has been discontinued- no fever and/or chills though white count is slightly elevated likely secondary to her stress COPD Currently seems stable Will place on DuoNebs in the clock and as needed and continue home inhalers Will monitor DuoNeb has been changed to as needed and she is saturating normally on room air Abdominal aortic aneurysm CT abdomen pelvis with IV contrast done at [facility] shows infrarenal abdominal aortic aneurysm craniocaudal length of approximately 6.9 cm in transverse diameter up to 4.2 cm and also ascending thoracic aortic measures 3.3cm Patient also has mesenteric stenosis >70% and celiac stenosis follows with vascular surgery no indications for operative intervention per vascular surgery As mentioned above. Asked images to be transferred to our facility. Celiac and mesenteric stenosis Carotid stenosis Can review images with vascular surgery on aspirin and statin CKD stage III Creatinine 0.8 Will follow labs Mild elevation of troponin Mostly demand ischemia Will follow serial cardiac enzymes- negative for any ACS Hypertension On lisinopril Imdur and metoprolol To check with patient if she is still on amlodipine Blood pressure has been running low at 96/60advised to drink more fluid Depression On Zoloft, Remeron and BuSpar Meds be causing hyponatremia GERD Omeprazole and famotidine Hyperlipidemia Statin Tobacco abuse Needs counseling Malnutrition Dietitian consult Will try boost DVT prophylaxis Heparin subcu follow stool for hemeoccult Disposition Telemetry CODE STATUS: DNR/DNI Admission and Anticipated Discharge Date Admission Date: March 03, 2025 Subjective 03/03/2025 The patient was seen and examined in telemetry unit She has been feeling a lot better and has been tolerating diet Denies any significant nausea and/or vomiting and diarrhea is controlled 03/04/2025 The patient was seen and examined in telemetry unit in presence of the daughter She has been feeling much better and does not seems to be in confusion Denies any abdominal pain, nausea or vomiting and diarrhea is controlled 03/05/2025 Patient was seen and examined in telemetry unit She has been nauseated this morning with minimal cough Denies any other significant symptoms She will have an EGD tomorrow Will get PT and OT evaluation prior to discharge and likely to mediate to a step O2 saturation test before discharge as well 03/06/2025 The patient was seen and examined in telemetry unit She has been feeling much better today and will have EGD this afternoon Denies any significant symptoms except weakness Diarrhea seems to be under control Review of Systems Review of Systems: All systems reviewed and are unremarkable except as noted below Physical Exam Physical Exam: Sitting on the bed without any acute distress Constitutional: + ill appearing and + thin Eyes: PERRL, conjunctivae normal, anicteric sclerae ENMT: external ear and nose normal, oropharynx normal Neck: trachea midline, no thyromegaly Respiratory: no respiratory distress Auscultation: lungs clear to auscultation bilaterally Cardiovascular: Rate/Rhythm: regular rate and regular rhythm; not tachycardic Heart Sounds: normal S1 and normal S2; no murmur Extremities: no edema Gastrointestinal (Abdomen): Inspection/Auscultation: normal bowel sounds; abdomen not distended Percussion/Palpation: abdomen soft; abdomen nontender Neurologic: normal touch/pain/proprioception and moves all extremities; no focal motor deficits Lymphatic: no cervical or axillary lymphadenopathy Results & Data Results & Data Vital Signs (Past 12 Hours) Vital Signs Temp Pulse Pulse Resp BP Pulse Ox O2 Del Method 03/06/25 08:36 Room Air 03/06/25 07:59 37.3 C 82 18 109/67 93 Room Air 03/06/25 07:00 78 03/06/25 03:25 36.6 C 79 16 122/65 95 Room Air 03/05/25 23:09 36.8 C 87 16 112/88 95 Room Air Laboratory Results Short CBC 03/06/25 Range/Units 05:49 WBC 13.48 H (4.8-10.8) K/ul Hgb 12.3 (12.0-16.0) g/dl Hct 34.0 L (37.0-47.0) % Plt Count 347 (130-400) K/uL BMP 03/05/25 03/05/25 03/06/25 14:24 22:34 02:50 Sodium 122 L 125 L 127 L Potassium 3.9 D 4.7 D 4.6 Chloride 89 L 92 L 93 L Carbon Dioxide 24 24 25 BUN 25 H 29 H 31 H Creatinine 1.08 1.14 1.31 H Glucose 115 H 111 H 132 H Calcium 9.0 9.3 9.7 Medications Administered Current Inpatient Medications Acetaminophen (Acetaminophen 325 Mg Tab) 650 mg PO Q4H PRN PRN Reason: Pain or Fever Stop: 04/02/25 02:29 Albuterol (Albut/Ipratrop 3mg/0.5mg Neb 3 Ml Vial) 3 ml NEB Q4H PRN; Protocol PRN Reason: Shortness Of Breath Or Wheezing Stop: 04/02/25 02:29 Albuterol (Albuterol Hfa 8 Gm Inhaler) 2 puffs INH Q6H PRN PRN Reason: Shortness Of Breath Or Wheezing Stop: 04/02/25 04:43 Aspirin (Aspirin 81 Mg Ectab) 81 mg PO DAILY DAYNE Stop: 04/02/25 08:59 Last Admin: 03/06/25 08:43 Dose: 81 mg Atorvastatin Calcium (Atorvastatin 40 Mg Tab) 40 mg PO DAILY DAYNE Stop: 04/02/25 08:59 Last Admin: 03/06/25 08:44 Dose: 40 mg Buspirone HCl (Buspirone 5 Mg Tab) 5 mg PO BID DAYNE Stop: 04/02/25 08:59 Last Admin: 03/06/25 08:44 Dose: 5 mg Calcium Carbonate (Calcium Carbonate 500 Mg Chewable Tab) 500 mg PO Q6H PRN PRN Reason: Indigestion Stop: 04/04/25 08:59 Last Admin: 03/05/25 09:30 Dose: 500 mg Calcium/Vitamin D (Calcium 600mg + Vit D 400 Iu Tab) 1 tab PO DAILY DAYNE Stop: 04/02/25 08:59 Last Admin: 03/06/25 08:43 Dose: 1 tab Famotidine (Famotidine 20 Mg Tab) 20 mg PO DAILY DAYNE Stop: 04/02/25 08:59 Last Admin: 03/06/25 08:58 Dose: 20 mg Fenofibrate (Fenofibrate Nanocrystallized 145 Mg Tablet) 145 mg PO DAILY DAYNE Stop: 04/02/25 08:59 Last Admin: 03/06/25 08:44 Dose: 145 mg Fluticasone Furoate (Fluticasone Furoate 200mcg 14 Puffs/Inhaler) 1 puffs INH DAILY DAYNE Stop: 04/02/25 08:59 Last Admin: 03/06/25 08:42 Dose: 1 puffs Furosemide (Furosemide Inj 20 Mg/2 Ml Vial) 30 mg IV Q8H DAYNE Stop: 04/03/25 10:55 Last Admin: 03/06/25 05:29 Dose: 30 mg Gabapentin (Gabapentin 100 Mg Cap) 100 mg PO BID DAYNE Stop: 04/02/25 08:59 Last Admin: 03/06/25 08:44 Dose: 100 mg Heparin Sodium (Porcine) (Heparin Sod 5,000 Unit/0.5 Ml Vial) 5,000 units SQ Q12 DAYNE Stop: 04/02/25 08:59 Last Admin: 03/06/25 09:00 Dose: 5,000 units Magnesium Sulfate/Dextrose (Magnesium Sulfate / D5w) 1 gm in 100 mls @ 50 mls/hr IV Q2H DAYNE Stop: 03/06/25 11:44 Last Infusion: 03/06/25 09:39 Dose: 50 mls/hr Isosorbide Mononitrate (Isosorbide [place] Extended Rel 30 Mg Tabcr) 30 mg PO DAILY DAYNE Stop: 04/02/25 08:59 Last Admin: 03/06/25 08:44 Dose: 30 mg Lisinopril (Lisinopril 20 Mg Tab) 20 mg PO DAILY DAYNE Stop: 04/02/25 08:59 Last Admin: 03/05/25 08:17 Dose: 20 mg Magnesium Chloride (Magnesium Chloride W/Calcium 64mg Delayed Rel Tab) 64 mg PO BID DAYNE Stop: 04/02/25 08:59 Last Admin: 03/06/25 08:45 Dose: 64 mg Metoprolol Tartrate (Metoprolol Tartrate 25 Mg Tab) [address] [facility] Stop: 04/02/25 08:59 Last Admin: 03/06/25 08:43 Dose: 25 mg Mirtazapine (Mirtazapine Tab 15 Mg Tab) 15 mg PO HS DAYNE Stop: 04/02/25 20:59 Last Admin: 03/05/25 21:28 Dose: 15 mg Ondansetron HCl (Ondansetron 4 Mg Od Tab) 4 mg PO Q6H PRN PRN Reason: Nausea Stop: 04/04/25 14:17 Pantoprazole Sodium (Pantoprazole 40 Mg Tab) 40 mg PO DAILY DAYNE Stop: 04/02/25 08:59 Last Admin: 03/06/25 08:44 Dose: 40 mg Polyethylene Glycol (Polyethylene (Miralax) 17 Gm Pack) 17 gm PO DAILY PRN PRN Reason: Constipation Stop: 04/02/25 02:29 Potassium Chloride (Potassium Chloride Crtab 20 Meq Tabcr) 20 meq PO TID DAYNE Stop: 04/02/25 13:59 Last Admin: 03/05/25 08:19 Dose: 20 meq Sertraline HCl (Sertraline Hcl 100 Mg Tablet) [address] [facility] Stop: 04/02/25 08:59 Last Admin: 03/06/25 08:44 Dose: 100 mg Tolvaptan (Tolvaptan 15 Mg Tablet) [address] [facility] Stop: 04/04/25 16:59 Last Admin: 03/06/25 08:45 Dose: 15 mg Umeclidinium/Vilanterol (Umeclidinium/Vilanterol 62.5/25mcg 7 Puffs/Inhaler) [address] [facility] Stop: 04/02/25 08:59 Last Admin: 03/06/25 08:41 Dose: 1 puffs
--- NOTE | 2025-03-06 11:56 | Communication Note ---
Palliative Care Follow Up Note Patient seen and examined at bedside. Patient doing ok today. She states she wants to get this procedure over with. Gen: A&O 3 NAD, sarcopenia/cachexia noted HEENT: NCAT, EOMI, not icteric. External ears normal. No rhinorrhea. Moist mucous membranes. Neck: Supple, full range of motion, no observable masses, No meningeal sign. Lungs: No Respiratory distress. CV: RRR, no edema. Abdomen: Soft, nondistended, No rebound tenderness. MSK: No joint swelling, no redness. does appear to have diffuse weakness Skin: No rashes, petechiae, lesions. Normal color per patient. Neuro: Normal Gait, Grossly intact. Psych: Appropriate for situation. A/P: #Severe COPD #Chronic Mesenteric/Renal/Iliac Stenosis #Acute on Chronic Hyponatremia -patient is chronically ill, with numerous comorbid conditions -patient still doing ADLs, ECOG 2 at this time, weight relatively consistent for past several years -prognosis on scale of months to years, notwithstanding acute events, given relative stability of symptoms and functional status Plan: -DNRDNI(will be reversed for procedures) -follow up with palliative care outpatient, referral placed -Malgorzata (daughter) is POA as chosen by patient, has POLST at home, updated her on patients wishes and values, she was appreciative of the update #Post Ingestion Nausea/Vomiting #Post Ingestion Epigastric Pain -gets nausea about 1 hour after eating, possibly suggestive of gastroparesis 2/2 multivessel stenosis -could also be 2/2 chronic mesenteric ischemia vs. other process such as ulceration/gastritis -pain likely 2/2 chronic mesenteric ischemia, describes as dull ache Plan: -will start reglan 5mg tid before meals pending EGD evaluation -continue zofran 4mg PO q6hrs prn, ordered -continue tylenol for pain, SNRI such as duloxetine will be considered as course unfolds -avoid opioids and NSAIDs at this time Date of Service: March 06, 2025
--- NOTE | 2025-03-06 14:45 | Anesthesiology Consultation ---
Date of Service March 06, 2025 Assessment & Plan Consults Requested medical & cardiac Pulmonary ASA ASA3 Proposed Anesthesia Anesthesia Type: MAC Risk / Benefits Reviewed With: PT / POA / Parent / Guardian, Accepts Plan and Informed Consent Obtained History Surgery Operation Date: 03/06/25 16:30 Proposed Procedures p Esophagogastroduodenoscopy Dr. Donal Mansfield MD Height/Weight Height: 5 ft 2 in Weight: 35.2 kg Allergies Allergy/AdvReac Type Severity Reaction Status Date / Time No Known Allergies Allergy Unverified 07/10/23 19:06 Medications Home Medications Medication Instructions Recorded Confirmed Last Taken albuterol sulfate 90 mcg/actuation 2 puff inhalation Q6H PRN 06/04/24 03/03/25 Unknown aerosol inhaler Shortness Of Breath Or Wheezing amlodipine 10 mg tablet 10 mg PO DAILY 06/04/24 06/04/24 Unknown aspirin 81 mg tablet,delayed 81 mg PO DAILY 06/04/24 03/03/25 Unknown release atorvastatin 40 mg tablet 40 mg PO DAILY 06/04/24 03/03/25 Unknown buspirone 10 mg tablet 5 mg PO BID 06/04/24 03/03/25 Unknown calcium 600 mg (as carbonate)-vit 1 tab PO DAILY 06/04/24 03/03/25 Unknown D3 10 mcg (400 unit)-minerals tablet famotidine 20 mg tablet 20 mg PO DAILY 06/04/24 03/03/25 Unknown fenofibrate nanocrystallized 145 145 mg PO DAILY 06/04/24 03/03/25 Unknown mg tablet fluticasone fur. 200 mcg-umeclid 1 inh inhalation DAILY 06/04/24 03/03/25 Unknown 62.5 mcg-vilant 25 mcg inhalat.powder (Trelegy Ellipta) gabapentin 100 mg capsule 100 mg PO BID 06/04/24 03/03/25 Unknown icosapent ethyl 1 gram capsule 2 g PO BID 06/04/24 06/04/24 Unknown isosorbide mononitrate 30 mg 30 mg PO DAILY 06/04/24 03/03/25 Unknown tablet,extended release 24 hr lisinopril 20 mg tablet 20 mg PO DAILY 06/04/24 03/03/25 Unknown metoprolol tartrate 25 mg tablet 25 mg PO BID 06/04/24 03/03/25 Unknown mirtazapine 15 mg tablet 15 mg PO HS 06/04/24 03/03/25 Unknown montelukast 10 mg tablet 10 mg PO DAILY 06/04/24 06/04/24 Unknown omeprazole 20 mg capsule,delayed 40 mg PO DAILY 06/04/24 03/03/25 Unknown release sertraline 100 mg tablet 100 mg PO DAILY 06/04/24 03/03/25 Unknown cefuroxime axetil 500 mg tablet 500 mg PO BID #7 tabs 06/07/24 Unknown docusate sodium 100 mg capsule 100 mg PO BID PRN constiaption 06/07/24 03/03/25 Unknown #30 caps doxycycline hyclate 100 mg capsule 100 mg PO BID #7 caps 06/07/24 Unknown magnesium chloride 64 mg 64 mg PO BID #20 tabs 06/07/24 03/03/25 Unknown (magnesium chloride) tablet,delayed release (Mag 64) potassium chloride 20 mEq 20 meq PO DAILY #10 tabs 06/07/24 03/03/25 Unknown tablet,extended release(part/cryst) Active Medications Generic Name Dose Route Start Last Admin Trade Name Freq PRN Reason Stop Dose Admin Aspirin 81 mg 03/03/25 09:00 03/06/25 08:43 Aspirin 81 Mg Ectab PO 04/02/25 08:59 81 mg DAILY DAYNE Administration Atorvastatin Calcium 40 mg 03/03/25 09:00 03/06/25 08:44 Atorvastatin 40 Mg Tab PO 04/02/25 08:59 40 mg DAILY DAYNE Administration Buspirone HCl 5 mg 03/03/25 09:00 03/06/25 08:44 Buspirone 5 Mg Tab PO 04/02/25 08:59 5 mg BID DAYNE Administration Calcium Carbonate 500 mg 03/05/25 09:00 03/05/25 09:30 Calcium Carbonate 500 Mg Chewable Tab PO 04/04/25 08:59 500 mg Q6H PRN Administration Indigestion Calcium/Vitamin D 1 tab 03/03/25 09:00 03/06/25 08:43 Calcium 600mg + Vit D 400 Iu Tab PO 04/02/25 08:59 1 tab DAILY DAYNE Administration Famotidine 20 mg 03/03/25 09:00 03/06/25 08:58 Famotidine 20 Mg Tab PO 04/02/25 08:59 20 mg DAILY DAYNE Administration Fenofibrate 145 mg 03/03/25 09:00 03/06/25 08:44 Fenofibrate Nanocrystallized 145 Mg Tablet PO 04/02/25 08:59 145 mg DAILY DAYNE Administration Fluticasone Furoate 1 puffs 03/03/25 09:00 03/06/25 08:42 Fluticasone Furoate 200mcg 14 Puffs/Inhaler INH 04/02/25 08:59 1 puffs DAILY DAYNE Administration Furosemide 30 mg 03/04/25 10:56 03/06/25 05:29 Furosemide Inj 20 Mg/2 Ml Vial IV 04/03/25 10:55 30 mg Q8H DAYNE Administration Gabapentin 100 mg 03/03/25 09:00 03/06/25 08:44 Gabapentin 100 Mg Cap PO 04/02/25 08:59 100 mg BID DAYNE Administration Heparin Sodium (Porcine) 5,000 units 03/03/25 09:00 03/06/25 09:00 Heparin Sod 5,000 Unit/0.5 Ml Vial SQ 04/02/25 08:59 5,000 units Q12 DAYNE Administration Isosorbide Mononitrate 30 mg 03/03/25 09:00 03/06/25 08:44 Isosorbide Jenkins Extended Rel 30 Mg Tabcr PO 04/02/25 08:59 30 mg DAILY DAYNE Administration Lisinopril 20 mg 03/03/25 09:00 03/05/25 08:17 Lisinopril 20 Mg Tab PO 04/02/25 08:59 20 mg DAILY DAYNE Administration Magnesium Chloride 64 mg 03/03/25 09:00 03/06/25 08:45 Magnesium Chloride W/Calcium 64mg Delayed Rel Tab PO 04/02/25 08:59 64 mg BID DAYNE Administration Metoprolol Tartrate 25 mg 03/03/25 09:00 03/06/25 08:43 Metoprolol Tartrate 25 Mg Tab PO 04/02/25 08:59 25 mg BID DAYNE Administration Mirtazapine 15 mg 03/03/25 21:00 03/05/25 21:28 Mirtazapine Tab 15 Mg Tab PO 04/02/25 20:59 15 mg HS DAYNE Administration Pantoprazole Sodium 40 mg 03/03/25 09:00 03/06/25 08:44 Pantoprazole 40 Mg Tab PO 04/02/25 08:59 40 mg DAILY DAYNE Administration Potassium Chloride 20 meq 03/03/25 14:00 03/05/25 08:19 Potassium Chloride Crtab 20 Meq Tabcr PO 04/02/25 13:59 20 meq TID DAYNE Administration Sertraline HCl 100 mg 03/03/25 09:00 03/06/25 08:44 Sertraline Hcl 100 Mg Tablet PO 04/02/25 08:59 100 mg DAILY DAYNE Administration Tolvaptan 15 mg 03/05/25 17:00 03/06/25 08:45 Tolvaptan 15 Mg Tablet PO 04/04/25 16:59 15 mg QAM DAYNE Administration Umeclidinium/Vilanterol 1 puffs 03/03/25 09:00 03/06/25 08:41 Umeclidinium/Vilanterol 62.5/25mcg 7 Puffs/Inhaler INH 04/02/25 08:59 1 puffs QAM DAYNE Administration NPO Date Last Intake of Fluids: 03/06/25 Time Last Intake of Fluids: 08:45 Date Last Intake of Solids: 03/05/25 Time Last Intake of Solids: 18:30 Exercise / Class Metabolic Activity II 4-5 Yardwork/Stairs/Walk up hill Past Family History Family History Other Diabetes Family history non-contributory Heart disease Past Anesthesia History No Hx of Anesthesia Complications and No Family Hx of Anesthesia Complications History of PONV No Hx of PONV and No Hx of Motion Sickness Social History Smoking Status: Current every day smoker tobacco type: cigarettes Smoking cigarettes per day: x1 pack Hx Alcohol Use: No Hx Substance Use: No substance use type: marijuana Last Used Substance: Hours (ago) Physical Exam Vital Signs Last Vital Signs Temp 36.6 C 03/06/25 14:22 Pulse 64 03/06/25 14:22 Resp 18 03/06/25 14:22 BP 91/47 L 03/06/25 14:22 Pulse Ox 94 03/06/25 14:22 O2 Del Method Room Air 03/06/25 14:22 Constitutional no acute distress ENMT Mouth: + dentures (upper partial denture); no dentition abnormality Thyromental Distance: > or= 3.5 Finger Breadths Mallampati Class: II Neck normal visual inspection Respiratory normal respiratory effort; no respiratory distress Auscultation: lungs clear to auscultation bilaterally Cardiovascular Rate/Rhythm: regular rate and regular rhythm Heart Sounds: no murmur Musculoskeletal Spine: normal cervical ROM Psychiatric Orientation: alert and oriented x 3 Testing Laboratory Results 03/06/25 05:49 03/06/25 02:50 PT 11.3 Seconds (9.0-12.0) 03/03/25 02:12 INR 1.0 (0.9-1.1) 03/03/25 02:12 APTT 26 Seconds (21-31) 03/03/25 02:12 Urine Color Yellow 03/03/25 Unknown Urine Appearance Clear (Clear) 03/03/25 Unknown Urine pH 6.5 (4.5-7.5) 03/03/25 Unknown Ur Specific [place] 1.006 (1.000-1.030) 03/03/25 Unknown Urine Protein Negative (Negative) 03/03/25 Unknown Urine Glucose (UA) Negative (Negative) 03/03/25 Unknown Urine Ketones Negative (Negative) 03/03/25 Unknown Urine Nitrite Negative (Negative) 03/03/25 Unknown Ur Leukocyte Esterase Negative (Negative) 03/03/25 Unknown Day of Procedure Evaluation. Date of Surgery March 06, 2025 Height/Weight Height: 5 ft 2 in Weight: 35.2 kg Vital Signs Last Vital Signs Temp 36.6 C 03/06/25 14:22 Pulse 64 03/06/25 14:22 Resp 18 03/06/25 14:22 BP 91/47 L 03/06/25 14:22 Pulse Ox 94 03/06/25 14:22 O2 Del Method Room Air 03/06/25 14:22 Allergies Allergy/AdvReac Type Severity Reaction Status Date / Time No Known Allergies Allergy Unverified 07/10/23 19:06 Medications Home Medications Medication Instructions Recorded Confirmed Last Taken albuterol sulfate 90 mcg/actuation 2 puff inhalation Q6H PRN 06/04/24 03/03/25 Unknown aerosol inhaler Shortness Of Breath Or Wheezing amlodipine 10 mg tablet 10 mg PO DAILY 06/04/24 06/04/24 Unknown aspirin 81 mg tablet,delayed 81 mg PO DAILY 06/04/24 03/03/25 Unknown release atorvastatin 40 mg tablet 40 mg PO DAILY 06/04/24 03/03/25 Unknown buspirone 10 mg tablet 5 mg PO BID 06/04/24 03/03/25 Unknown calcium 600 mg (as carbonate)-vit 1 tab PO DAILY 06/04/24 03/03/25 Unknown D3 10 mcg (400 unit)-minerals tablet famotidine 20 mg tablet 20 mg PO DAILY 06/04/24 03/03/25 Unknown fenofibrate nanocrystallized 145 145 mg PO DAILY 06/04/24 03/03/25 Unknown mg tablet fluticasone fur. 200 mcg-umeclid 1 inh inhalation DAILY 06/04/24 03/03/25 Unknown 62.5 mcg-vilant 25 mcg inhalat.powder (Trelegy Ellipta) gabapentin 100 mg capsule 100 mg PO BID 06/04/24 03/03/25 Unknown icosapent ethyl 1 gram capsule 2 g PO BID 06/04/24 06/04/24 Unknown isosorbide mononitrate 30 mg 30 mg PO DAILY 06/04/24 03/03/25 Unknown tablet,extended release 24 hr lisinopril 20 mg tablet 20 mg PO DAILY 06/04/24 03/03/25 Unknown metoprolol tartrate 25 mg tablet 25 mg PO BID 06/04/24 03/03/25 Unknown mirtazapine 15 mg tablet 15 mg PO HS 06/04/24 03/03/25 Unknown montelukast 10 mg tablet 10 mg PO DAILY 06/04/24 06/04/24 Unknown omeprazole 20 mg capsule,delayed 40 mg PO DAILY 06/04/24 03/03/25 Unknown release sertraline 100 mg tablet 100 mg PO DAILY 06/04/24 03/03/25 Unknown cefuroxime axetil 500 mg tablet 500 mg PO BID #7 tabs 06/07/24 Unknown docusate sodium 100 mg capsule 100 mg PO BID PRN constiaption 06/07/24 03/03/25 Unknown #30 caps doxycycline hyclate 100 mg capsule 100 mg PO BID #7 caps 06/07/24 Unknown magnesium chloride 64 mg 64 mg PO BID #20 tabs 06/07/24 03/03/25 Unknown (magnesium chloride) tablet,delayed release (Mag 64) potassium chloride 20 mEq 20 meq PO DAILY #10 tabs 06/07/24 03/03/25 Unknown tablet,extended release(part/cryst) Active Medications Generic Name Dose Route Start Last Admin Trade Name Freq PRN Reason Stop Dose Admin Aspirin 81 mg 03/03/25 09:00 03/06/25 08:43 Aspirin 81 Mg Ectab PO 04/02/25 08:59 81 mg DAILY DYANE Administration Atorvastatin Calcium 40 mg 03/03/25 09:00 03/06/25 08:44 Atorvastatin 40 Mg Tab PO 04/02/25 08:59 40 mg DAILY DAYNE Administration Buspirone HCl 5 mg 03/03/25 09:00 03/06/25 08:44 Buspirone 5 Mg Tab PO 04/02/25 08:59 5 mg BID DAYNE Administration Calcium Carbonate 500 mg 03/05/25 09:00 03/05/25 09:30 Calcium Carbonate 500 Mg Chewable Tab PO 04/04/25 08:59 500 mg Q6H PRN Administration Indigestion Calcium/Vitamin D 1 tab 03/03/25 09:00 03/06/25 08:43 Calcium 600mg + Vit D 400 Iu Tab PO 04/02/25 08:59 1 tab DAILY DAYNE Administration Famotidine 20 mg 03/03/25 09:00 03/06/25 08:58 Famotidine 20 Mg Tab PO 04/02/25 08:59 20 mg DAILY DAYNE Administration Fenofibrate 145 mg 03/03/25 09:00 03/06/25 08:44 Fenofibrate Nanocrystallized 145 Mg Tablet PO 04/02/25 08:59 145 mg DAILY DAYNE Administration Fluticasone Furoate 1 puffs 03/03/25 09:00 03/06/25 08:42 Fluticasone Furoate 200mcg 14 Puffs/Inhaler INH 04/02/25 08:59 1 puffs DAILY DAYNE Administration Furosemide 30 mg 03/04/25 10:56 03/06/25 05:29 Furosemide Inj 20 Mg/2 Ml Vial IV 04/03/25 10:55 30 mg Q8H DAYNE Administration Gabapentin 100 mg 03/03/25 09:00 03/06/25 08:44 Gabapentin 100 Mg Cap PO 04/02/25 08:59 100 mg BID DAYNE Administration Heparin Sodium (Porcine) 5,000 units 03/03/25 09:00 03/06/25 09:00 Heparin Sod 5,000 Unit/0.5 Ml Vial SQ 04/02/25 08:59 5,000 units Q12 DAYNE Administration Isosorbide Mononitrate 30 mg 03/03/25 09:00 03/06/25 08:44 Isosorbide Jenkins Extended Rel 30 Mg Tabcr PO 04/02/25 08:59 30 mg DAILY DAYNE Administration Lisinopril 20 mg 03/03/25 09:00 03/05/25 08:17 Lisinopril 20 Mg Tab PO 04/02/25 08:59 20 mg DAILY DAYNE Administration Magnesium Chloride 64 mg 03/03/25 09:00 03/06/25 08:45 Magnesium Chloride W/Calcium 64mg Delayed Rel Tab PO 04/02/25 08:59 64 mg BID DAYNE Administration Metoprolol Tartrate 25 mg 03/03/25 09:00 03/06/25 08:43 Metoprolol Tartrate 25 Mg Tab PO 04/02/25 08:59 25 mg BID DAYNE Administration Mirtazapine 15 mg 03/03/25 21:00 03/05/25 21:28 Mirtazapine Tab 15 Mg Tab PO 04/02/25 20:59 15 mg HS DAYNE Administration Pantoprazole Sodium 40 mg 03/03/25 09:00 03/06/25 08:44 Pantoprazole 40 Mg Tab PO 04/02/25 08:59 40 mg DAILY DAYNE Administration Potassium Chloride 20 meq 03/03/25 14:00 03/05/25 08:19 Potassium Chloride Crtab 20 Meq Tabcr PO 04/02/25 13:59 20 meq TID DAYNE Administration Sertraline HCl 100 mg 03/03/25 09:00 03/06/25 08:44 Sertraline Hcl 100 Mg Tablet PO 04/02/25 08:59 100 mg DAILY DAYNE Administration Tolvaptan 15 mg 03/05/25 17:00 03/06/25 08:45 Tolvaptan 15 Mg Tablet PO 04/04/25 16:59 15 mg QAM DAYNE Administration Umeclidinium/Vilanterol 1 puffs 03/03/25 09:00 03/06/25 08:41 Umeclidinium/Vilanterol 62.5/25mcg 7 Puffs/Inhaler INH 04/02/25 08:59 1 puffs QAM DAYNE Administration Past Anesthesia History No Hx of Anesthesia Complications and No Family Hx of Anesthesia Complications History of PONV No Hx of PONV and No Hx of Motion Sickness NPO Date Last Intake of Fluids: 03/06/25 Time Last Intake of Fluids: 08:45 Date Last Intake of Solids: 03/05/25 Time Last Intake of Solids: 18:30 Home Medications Home Medications Medication Instructions Recorded Confirmed Last Taken albuterol sulfate 90 mcg/actuation 2 puff inhalation Q6H PRN 06/04/24 03/03/25 Unknown aerosol inhaler Shortness Of Breath Or Wheezing amlodipine 10 mg tablet 10 mg PO DAILY 06/04/24 06/04/24 Unknown aspirin 81 mg tablet,delayed 81 mg PO DAILY 06/04/24 03/03/25 Unknown release atorvastatin 40 mg tablet 40 mg PO DAILY 06/04/24 03/03/25 Unknown buspirone 10 mg tablet 5 mg PO BID 06/04/24 03/03/25 Unknown calcium 600 mg (as carbonate)-vit 1 tab PO DAILY 06/04/24 03/03/25 Unknown D3 10 mcg (400 unit)-minerals tablet famotidine 20 mg tablet 20 mg PO DAILY 06/04/24 03/03/25 Unknown fenofibrate nanocrystallized 145 145 mg PO DAILY 06/04/24 03/03/25 Unknown mg tablet fluticasone fur. 200 mcg-umeclid 1 inh inhalation DAILY 06/04/24 03/03/25 Unknown 62.5 mcg-vilant 25 mcg inhalat.powder (Trelegy Ellipta) gabapentin 100 mg capsule 100 mg PO BID 06/04/24 03/03/25 Unknown icosapent ethyl 1 gram capsule 2 g PO BID 06/04/24 06/04/24 Unknown isosorbide mononitrate 30 mg 30 mg PO DAILY 06/04/24 03/03/25 Unknown tablet,extended release 24 hr lisinopril 20 mg tablet 20 mg PO DAILY 06/04/24 03/03/25 Unknown metoprolol tartrate 25 mg tablet 25 mg PO BID 06/04/24 03/03/25 Unknown mirtazapine 15 mg tablet 15 mg PO HS 06/04/24 03/03/25 Unknown montelukast 10 mg tablet 10 mg PO DAILY 06/04/24 06/04/24 Unknown omeprazole 20 mg capsule,delayed 40 mg PO DAILY 06/04/24 03/03/25 Unknown release sertraline 100 mg tablet 100 mg PO DAILY 06/04/24 03/03/25 Unknown cefuroxime axetil 500 mg tablet 500 mg PO BID #7 tabs 06/07/24 Unknown docusate sodium 100 mg capsule 100 mg PO BID PRN constiaption 06/07/24 03/03/25 Unknown #30 caps doxycycline hyclate 100 mg capsule 100 mg PO BID #7 caps 06/07/24 Unknown magnesium chloride 64 mg 64 mg PO BID #20 tabs 06/07/24 03/03/25 Unknown (magnesium chloride) tablet,delayed release (Mag 64) potassium chloride 20 mEq 20 meq PO DAILY #10 tabs 06/07/24 03/03/25 Unknown tablet,extended release(part/cryst) Active Medications Generic Name Dose Route Start Last Admin Trade Name Freq PRN Reason Stop Dose Admin Aspirin 81 mg 03/03/25 09:00 03/06/25 08:43 Aspirin 81 Mg Ectab PO 04/02/25 08:59 81 mg DAILY DAYNE Administration Atorvastatin Calcium 40 mg 03/03/25 09:00 03/06/25 08:44 Atorvastatin 40 Mg Tab PO 04/02/25 08:59 40 mg DAILY DAYNE Administration Buspirone HCl 5 mg 03/03/25 09:00 03/06/25 08:44 Buspirone 5 Mg Tab PO 04/02/25 08:59 5 mg BID DAYNE Administration Calcium Carbonate 500 mg 03/05/25 09:00 03/05/25 09:30 Calcium Carbonate 500 Mg Chewable Tab PO 04/04/25 08:59 500 mg Q6H PRN Administration Indigestion Calcium/Vitamin D 1 tab 03/03/25 09:00 03/06/25 08:43 Calcium 600mg + Vit D 400 Iu Tab PO 04/02/25 08:59 1 tab DAILY DAYNE Administration Famotidine 20 mg 03/03/25 09:00 03/06/25 08:58 Famotidine 20 Mg Tab PO 04/02/25 08:59 20 mg DAILY DAYNE Administration Fenofibrate 145 mg 03/03/25 09:00 03/06/25 08:44 Fenofibrate Nanocrystallized 145 Mg Tablet PO 04/02/25 08:59 145 mg DAILY DAYNE Administration Fluticasone Furoate 1 puffs 03/03/25 09:00 03/06/25 08:42 Fluticasone Furoate 200mcg 14 Puffs/Inhaler INH 04/02/25 08:59 1 puffs DAILY DAYNE Administration Furosemide 30 mg 03/04/25 10:56 03/06/25 05:29 Furosemide Inj 20 Mg/2 Ml Vial IV 04/03/25 10:55 30 mg Q8H DAYNE Administration Gabapentin 100 mg 03/03/25 09:00 03/06/25 08:44 Gabapentin 100 Mg Cap PO 04/02/25 08:59 100 mg BID DAYNE Administration Heparin Sodium (Porcine) 5,000 units 03/03/25 09:00 03/06/25 09:00 Heparin Sod 5,000 Unit/0.5 Ml Vial SQ 04/02/25 08:59 5,000 units Q12 DAYNE Administration Isosorbide Mononitrate 30 mg 03/03/25 09:00 03/06/25 08:44 Isosorbide Jenkins Extended Rel 30 Mg Tabcr PO 04/02/25 08:59 30 mg DAILY DAYNE Administration Lisinopril 20 mg 03/03/25 09:00 03/05/25 08:17 Lisinopril 20 Mg Tab PO 04/02/25 08:59 20 mg DAILY DAYNE Administration Magnesium Chloride 64 mg 03/03/25 09:00 03/06/25 08:45 Magnesium Chloride W/Calcium 64mg Delayed Rel Tab PO 04/02/25 08:59 64 mg BID DAYNE Administration Metoprolol Tartrate 25 mg 03/03/25 09:00 03/06/25 08:43 Metoprolol Tartrate 25 Mg Tab PO 04/02/25 08:59 25 mg BID DAYNE Administration Mirtazapine 15 mg 03/03/25 21:00 03/05/25 21:28 Mirtazapine Tab 15 Mg Tab PO 04/02/25 20:59 15 mg HS DAYNE Administration Pantoprazole Sodium 40 mg 03/03/25 09:00 03/06/25 08:44 Pantoprazole 40 Mg Tab PO 04/02/25 08:59 40 mg DAILY DAYNE Administration Potassium Chloride 20 meq 03/03/25 14:00 03/05/25 08:19 Potassium Chloride Crtab 20 Meq Tabcr PO 04/02/25 13:59 20 meq TID DAYNE Administration Sertraline HCl 100 mg 03/03/25 09:00 03/06/25 08:44 Sertraline Hcl 100 Mg Tablet PO 04/02/25 08:59 100 mg DAILY DAYNE Administration Tolvaptan 15 mg 03/05/25 17:00 03/06/25 08:45 Tolvaptan 15 Mg Tablet PO 04/04/25 16:59 15 mg QAM DAYNE Administration Umeclidinium/Vilanterol 1 puffs 03/03/25 09:00 03/06/25 08:41 Umeclidinium/Vilanterol 62.5/25mcg 7 Puffs/Inhaler INH 04/02/25 08:59 1 puffs QAM DAYNE Administration Exercise / Class Metabolic Activity Metabolic Activity: II 4-5 Yardwork/Stairs/Walk up [place] Physical Exam Constitutional: no acute distress Mouth: + dentures (upper partial denture); no dentition abnormality Thyromental Distance: > or= 3.5 Finger Breadths Mallampati Class: II Neck: + visual inspection normal Respiratory: + respiratory effort normal and + clear to auscultation bilaterally; no respiratory distress Cardiovascular: + regular rate and + regular rhythm; no murmur Musculoskeletal: no limited cervical ROM Psychiatric: + alert and + oriented x 3 ASA ASA3 Proposed Anesthesia Proposed Anesthesia: MAC Risk / Benefits Reviewed With: PT / POA / Parent / Guardian, Accepts Plan and Informed Consent Obtained
--- NOTE | 2025-03-06 15:14 | Communication Note ---
Date of Service: March 06, 2025 Pyloric stenosis. Distal esophagitis which may be stasis related. No retained food in the stomach. Dilation performed with a pyloric channel balloon to 13.5 mm. Disruption of the stenosis. Some oozing from the edges treated with hemostatic clips. pyloric channel patent post Clears today, advance diet tomorrow
--- NOTE | 2025-03-06 15:19 | GI REPORT ---
[facility] Patient: SHAHID MCKEON : 1945 Sex at : Female Age: 79 Years Procedure: Upper GI endoscopy Date: 03/06/2025 Attending Physician: Sebastian Mansfield MD Referring MD: Adama Gates Indications: - Dysphagia - Weight loss Medications: - Monitored Anesthesia Care Complications: - No immediate complications. Estimated Blood Loss: - Estimated blood loss was minimal. Procedure: - The egd scope was introduced through the mouth and advanced to the second part of the duodenum. - The upper GI endoscopy was accomplished without difficulty. - The patient tolerated the procedure well. Findings: - One superficial esophageal ulcer with no stigmata of recent bleeding was found at the gastroesophageal junction. The lesion was 8 mm in largest dimension. - A benign-appearing, intrinsic moderate stenosis was found in the prepyloric region of the stomach. This was non-traversed. Pyloric balloon dilate The dilation site was examined and showed moderate improvement in luminal narrowing. Estimated blood loss was minimal. To prevent bleeding post-intervention, two hemostatic clips were successfully placed. Clip oil fire specialist: Novaled. There was no bleeding at the end of the procedure. - The examined duodenum was normal. Impression: - Esophageal ulcer with no stigmata of recent bleeding. - Gastric stenosis was found in the prepyloric region of the stomach. Clips were placed. Clip oil fire specialist: Novaled. - Normal examined duodenum. - No specimens collected. - Pyloric stenosis may be playing a role in her symptoms and decreased p.o. intake. Treated endoscopically. 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 All Rights Reserved. The CPT codes, CCI edits and ICD codes generated are intended as suggestions and were generated based on input data. These codes are preliminary and upon molding line operator review may be revised to meet current compliance and payer requirements. The provider is responsible for the final determination of appropriate codes, and modifiers. Sebastian Mansfield MD This document has been electronically signed. Note Initiated:03/06/2025 Note Completed:03/06/2025 3:18 PM [id number]
--- NOTE | 2025-03-06 16:07 | Anesthesiology Progress Note ---
Date of Service March 06, 2025 Anesthesia Post Procedure Vital Signs Vital Signs: Temp Pulse Pulse Pulse Resp BP Pulse Ox 03/06/25 15:33 73 77 18 95/49 L 97 03/06/25 15:21 73 77 16 98/53 L 97 03/06/25 14:22 36.6 C 64 18 91/47 L 94 03/06/25 13:02 71 03/06/25 11:32 36.5 C 73 16 92/56 L 96 03/06/25 08:36 03/06/25 07:59 37.3 C 82 18 109/67 93 03/06/25 07:00 78 03/06/25 03:25 36.6 C 79 16 122/65 95 03/05/25 23:09 36.8 C 87 16 112/88 95 03/05/25 19:50 03/05/25 19:43 36.7 C 88 20 111/67 95 O2 Del Method 03/06/25 15:33 Room Air 03/06/25 15:21 Room Air 03/06/25 14:22 Room Air 03/06/25 13:02 03/06/25 11:32 Room Air 03/06/25 08:36 Room Air 03/06/25 07:59 Room Air 03/06/25 07:00 03/06/25 03:25 Room Air 03/05/25 23:09 Room Air 03/05/25 19:50 Room Air 03/05/25 19:43 Room Air Transfer of Care Handoff Completed per policy Notes Mental Status: alert / awake / arousable Patient Amnestic to Procedure: Yes Nausea / Vomiting: adequately controlled Pain: adequately controlled Airway Patency, RR, SpO2: stable & adequate BP & HR: stable & adequate Hydration State: stable & adequate Anesthetic Complications: no major complications apparent
[2025-03-06] MEDS: LIDOCAINE 2% 2 ML VIAL/AMP(20MG/ML) INFIL ONE (16:55)
[2025-03-06] MEDS: ePHEDrine sulfate 50 MG/5 ML SYR ONE (16:55)
[2025-03-06] MEDS: PROPOFOL IV EMULSION 10 MG/ML 20 ML VIAL IV ONE (16:55)
[2025-03-06] MEDS: ACETAMINOPHEN 325 MG TAB PO PRN (17:06)
[2025-03-07 05:59] LABS: Basophils # (auto) 0.03 K/uL (0.00-0.20); Basophils % (auto) 0.3 %; Eosinophils # (auto) 0.09 K/uL (0.00-0.50); Eosinophils % (auto) 0.8 %; Hematocrit (blood only) 31.3 % (37.0-47.0); Hemoglobin 11.1 g/dl (12.0-16.0); Immature Granulocytes % (auto) 0.9 %; Lymphocytes # (auto) 1.61 K/uL (1.20-3.40); Lymphocytes % (auto) 14.8 %; Mean Corpuscular Hemoglobin 30.5 pg (25.0-34.0); Mean Corpuscular Hgb Conc 35.5 g/dL (32.0-36.0); Mean Platelet Volume 8.5 fL (9.4-12.4); Monocytes # (auto) 0.66 K/uL (0.11-0.59); Monocytes % (auto) 6.1 %; Neutrophils # (auto) 8.36 K/uL (1.40-6.50); Neutrophils % (auto) 77.1 %; Platelet Count 279 K/uL (130-400); RDW Coefficient of Variation 13.2 % (11.5-14.5); RDW Standard Deviation 41.2 fL (36.4-46.3); Red Blood Count 3.64 M/uL (4.20-5.40); White Blood Count 10.85 K/ul (4.8-10.8)
[2025-03-07 06:23] LABS: BUN Creatinine Ratio 20.1 (10-20); Calcium 9.1 mg/dl (8.6-10.3); Creatinine Clr Calc Pharmacy 17.1 ml/min; Potassium 3.5 mmol/L (3.5-5.1)
--- NOTE | 2025-03-07 11:45 | Nephrology Progress Note ---
Date of Service March 07, 2025 Assessment & Plan Admission and Anticipated Discharge Date Admission Date: March 03, 2025 Subjective Assessment & Plan (1) Acute hyponatremia: 2 JAMARI has h/o from Underlying SIADH ( with Severe Cachexia-weighs 34 kilo and Underlying COPD). Currently Came in with Worsened Serum na --was 118 at [facility] and last one was 123. Cause was nausea and vomiting with Almost total lack of Solid food intake but was still drinking lot of liquids. this created a big mismatch and Caused Na to go lower. Also Nausea triggers more ADH release making her Na go lower. Currently NPO so can continue NS 50ml/hr for volume and Salt load. na is 131 this AM. Does have chronic Hyponatremia However now creat is 1.54 which for her body size is quite high and qualifies as JAMARI. D/c Iv Lasix and d/c tolvaptan. Continue NS for today 1000 ml--50ml/hr Skip lasix today With her I would aim for na in the high 120 range. Given her nausea and vomiting will try to mange without urea/Salt limit--very hard to swallow FFR 1000 ml. Low mag despite supplement -raise mag to128 bid also remove landers now (2) Nausea & vomiting: Much better now. S--having n and poor PO. EGD done and showed esophageal Ulcer and Pyloric stenosis. na is better but now creat rising to 1.54 ROS--see HPI. 12 Systems reviewed and negative Physical Exam Physical Exam: General- Not in distress. very Thin and frail. Normal accurate Speech MM--moist. Neck- supple, no JVD. Lungs- clear to auscultation . Prolonged wheezing Heart- regular rhythm; no murmur Abdomen- soft, nontender Extremities- no edema Neuro- alert, oriented Results & Data Vital Signs (Past 12 Hours) Vital Signs Temp Pulse Resp BP Pulse Ox O2 Del Method 03/07/25 10:55 36.6 C 69 23 103/60 96 Room Air 03/07/25 07:48 Room Air 03/07/25 07:46 36.5 C 83 23 104/59 L 97 Room Air 03/07/25 02:55 36.9 C 78 16 112/55 L 94 Room Air
--- NOTE | 2025-03-07 12:02 | Hospitalist Progress Note ---
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, multiple lung nodules, hiatal hernia, seasonal allergic rhinitis, renal artery stenosis, mesenteric artery stenosis, iliac artery stenosis bilateral, abdominal aortic aneurysm, hypertension, history of CAD, severe protein calorie moderation, GERD, dysphagia, CKD stage III, restless leg syndrome, lumbar degenerative disease, anemia due to CKD stage III, general anxiety disorder, tobacco use disorder, mild cognitive disorder., ambulates with a cane and lives with her daughter went to [facility] because of nausea vomiting and abdominal pain going for last 10 days and was found to have pneumonia, COPD exacerbation and hyponatremia and was transferred here for further care. Patient says for last 10 days she is having lot of nausea and vomiting and not able to eat anything. Associated with abdominal pain. Currently abdominal pain resolved. Having some diarrhea with black stools. Micturating okay. Denies any fevers. Having cough and bringing some phlegm. Denies any chest pain or shortness of breath. No headache. Sometimes feels dizzy associated with some double vision when she stands up quickly and and then resolves. Currently resting comfortably saturating okay on room air and hemodynamically stable. Marleni went to [facility] and was found to have some wheezing. Somewhat tachypneic and heart rates was 90s. EKG was okay. Has elevated WBC, hemoglobin was okay. Alert and oriented. Glucose was 132. Sodium was 119. K was 2.9. D-dimer was elevated at 1200. CTA chest no PE . CXR showed right lower lung pneumonia. She got 1 L of fluids before sodium was checked. [facility] had talked with the nephrology on-call and was advised for urine studies and also close follow-up of the labs and patient was placed on maintenance fluids. Initial recheck sodium went to 118 and repeat recheck sodium went to 120 before she was transferred here. Acute Hyponatremia History of SIADH with severe cachexia likely secondary to underlying chronic COPD presented with nausea vomiting and diarrhea for a total of 10 days duration Presented with sodium of 118 Received D5 water at rate of 80 mL/h Sodium level went up to 124 early this morning and this morning it has been 121 Will check serum osmolality-Low at 267, urine osmolality low at 276 and urine sodium levels- was 76 Appreciate nephrology input and recommendation- has been put on normal saline at 50 mL/h and also IV Lasix 20 mg IV every 8 hourly and no urea at this time Will restrict fluid intake to 1000 mL/day Sodium level is slightly better at 126 today and will continue current management PRP will be done twice daily Sodium level is minimally elevated at 127 today and she has been started with tolvaptan and lisinopril is on hold Sodium level increased to 131 today and the adjustment of medications were done to continue care Intravenous fluid discontinued at 50 cc an hour, IV diuretics was stopped and also tolvaptan was discontinued Will continue to monitor PRP and electrolytes Will get PT OT and likely to be discharged home on Sunday Pyloric stenosis- status post EGD and dilatation on 03/06/2025 Nausea vomiting and abdominal pain- likely infectious Her on and off diarrhea could be related to mesenteric stenosis per Vascular surgery Will check stool studies. tool for hemeoccult-Awaiting collection and results Consult GI for any further recommendations- appreciate GI input and recommendation no EGD at this time Nausea and vomiting have resolved and the patient is tolerating regular diet No more nausea no vomiting and no diarrhea Still has nausea and epigastric discomfort-Tums has been given for dyspepsia Will have EGD tomorrow Symptomatically much better and will have EGD today Status post EGD and dilatation of the pylorus and she has been feeling much better following the procedure and tolerating diet JAMARI with CKD stage III CKD stage III Creatinine 0.8 Will follow labs Diuretic has been discontinued and she will get cautious amount of intravenous fluid SURINDER inhibitor is on hold Will monitor PRP Pneumonia- aspiration pneumonia has been ruled out Right lower lobe pneumonia on chest x-ray On the CAT scan no obvious pneumonia Empiric Rocephin and doxycycline Will continue empiric Rocephin and doxycycline Antibiotics will be discontinued tomorrow Antibiotic has been discontinued- no fever and/or chills though white count is slightly elevated likely secondary to her stress COPD Currently seems stable Will place on DuoNebs in the clock and as needed and continue home inhalers Will monitor DuoNeb has been changed to as needed and she is saturating normally on room air Abdominal aortic aneurysm CT abdomen pelvis with IV contrast done at [facility] shows infrarenal abdominal aortic aneurysm craniocaudal length of approximately 6.9 cm in transverse diameter up to 4.2 cm and also ascending thoracic aortic measures 3.3cm Patient also has mesenteric stenosis >70% and celiac stenosis follows with vascular surgery no indications for operative intervention per vasc ular surgery As mentioned above. Asked images to be transferred to our facility. Celiac and mesenteric stenosis Carotid stenosis Can review images with vascular surgery on aspirin and statin Mild elevation of troponin Mostly demand ischemia Will follow serial cardiac enzymes- negative for any ACS Hypertension On lisinopril Imdur and metoprolol To check with patient if she is still on amlodipine Blood pressure has been running low at 96/60advised to drink more fluid Depression On Zoloft, Remeron and BuSpar Meds be causing hyponatremia GERD Omeprazole and famotidine Hyperlipidemia Statin Tobacco abuse Needs counseling Malnutrition Dietitian consult Will try boost DVT prophylaxis Heparin subcu follow stool for hemeoccult Disposition Telemetry CODE STATUS: DNR/DNI Admission and Anticipated Discharge Date Admission Date: March 03, 2025 Subjective 03/03/2025 The patient was seen and examined in telemetry unit She has been feeling a lot better and has been tolerating diet Denies any significant nausea and/or vomiting and diarrhea is controlled 03/04/2025 The patient was seen and examined in telemetry unit in presence of the daughter She has been feeling much better and does not seems to be in confusion Denies any abdominal pain, nausea or vomiting and diarrhea is controlled 03/05/2025 Patient was seen and examined in telemetry unit She has been nauseated this morning with minimal cough Denies any other significant symptoms She will have an EGD tomorrow Will get PT and OT evaluation prior to discharge and likely to mediate to a step O2 saturation test before discharge as well 03/06/2025 The patient was seen and examined in telemetry unit She has been feeling much better today and will have EGD this afternoon Denies any significant symptoms except weakness Diarrhea seems to be under control 03/07/2025 The patient was seen and examined in telemetry unit in presence of the daughter Following EGD and pyloric dilatation she has been feeling much better and tolerating diet Remains weak and lethargic and will require more physical therapy before deciding why she will be going She wants to go home today Review of Systems Review of Systems: All systems reviewed and unremarkable except as noted below Physical Exam Physical Exam: Lying in bed without any significant distress. Denies any nausea or vomiting Constitutional: + ill appearing and + thin Eyes: PERRL, conjunctivae normal, anicteric sclerae ENMT: external ear and nose normal, oropharynx normal Neck: trachea midline, no thyromegaly Respiratory: no respiratory distress Auscultation: lungs clear to auscultation bilaterally Cardiovascular: Rate/Rhythm: regular rate and regular rhythm; not tachycardic Heart Sounds: normal S1 and normal S2; no murmur Extremities: no edema Gastrointestinal (Abdomen): Inspection/Auscultation: normal bowel sounds; abdomen not distended Percussion/Palpation: abdomen soft; abdomen nontender Musculoskeletal: No acute arthritis involving any of the joint Neurologic: normal touch/pain/proprioception and moves all extremities; no focal motor deficits Lymphatic: no cervical or axillary lymphadenopathy Results & Data Results & Data Vital Signs (Past 12 Hours) Vital Signs Temp Pulse Resp BP Pulse Ox O2 Del Method 03/07/25 10:55 36.6 C 69 23 103/60 96 Room Air 03/07/25 07:48 Room Air 03/07/25 07:46 36.5 C 83 23 104/59 L 97 Room Air 03/07/25 02:55 36.9 C 78 16 112/55 L 94 Room Air Laboratory Results Short CBC 03/07/25 Range/Units 05:40 WBC 10.85 H (4.8-10.8) K/ul Hgb 11.1 L (12.0-16.0) g/dl Hct 31.3 L (37.0-47.0) % Plt Count 279 (130-400) K/uL BMP 03/07/25 05:40 Sodium 131 L Potassium 3.5 D Chloride 97 L Carbon Dioxide 26 BUN 31 H Creatinine 1.54 H Glucose 151 H Calcium 9.1 Medications Administered Current Inpatient Medications Acetaminophen (Acetaminophen 325 Mg Tab) 650 mg PO Q4H PRN PRN Reason: Pain or Fever Stop: 04/02/25 02:29 Last Admin: 03/06/25 17:06 Dose: 650 mg Albuterol (Albut/Ipratrop 3mg/0.5mg Neb 3 Ml Vial) 3 ml NEB Q4H PRN; Protocol PRN Reason: Shortness Of Breath Or Wheezing Stop: 04/02/25 02:29 Albuterol (Albuterol Hfa 8 Gm Inhaler) 2 puffs INH Q6H PRN PRN Reason: Shortness Of Breath Or Wheezing Stop: 04/02/25 04:43 Aspirin (Aspirin 81 Mg Ectab) 81 mg PO DAILY DAYNE Stop: 04/02/25 08:59 Last Admin: 03/07/25 07:37 Dose: 81 mg Atorvastatin Calcium (Atorvastatin 40 Mg Tab) 40 mg PO DAILY DAYNE Stop: 04/02/25 08:59 Last Admin: 03/07/25 07:37 Dose: 40 mg Buspirone HCl (Buspirone 5 Mg Tab) 5 mg PO BID DAYNE Stop: 04/02/25 08:59 Last Admin: 03/07/25 07:37 Dose: 5 mg Calcium Carbonate (Calcium Carbonate 500 Mg Chewable Tab) 500 mg PO Q6H PRN PRN Reason: Indigestion Stop: 04/04/25 08:59 Last Admin: 03/05/25 09:30 Dose: 500 mg Calcium/Vitamin D (Calcium 600mg + Vit D 400 Iu Tab) 1 tab PO DAILY DAYNE Stop: 04/02/25 08:59 Last Admin: 03/07/25 07:37 Dose: 1 tab Famotidine (Famotidine 20 Mg Tab) 20 mg PO DAILY DAYNE Stop: 04/02/25 08:59 Last Admin: 03/07/25 07:42 Dose: 20 mg Fenofibrate (Fenofibrate Nanocrystallized 145 Mg Tablet) 145 mg PO DAILY DAYNE Stop: 04/02/25 08:59 Last Admin: 03/07/25 07:36 Dose: 145 mg Fluticasone Furoate (Fluticasone Furoate 200mcg 14 Puffs/Inhaler) 1 puffs INH DAILY DAYNE Stop: 04/02/25 08:59 Last Admin: 03/07/25 07:36 Dose: 1 puffs Gabapentin (Gabapentin 100 Mg Cap) 100 mg PO BID DAYNE Stop: 04/02/25 08:59 Last Admin: 03/07/25 07:38 Dose: 100 mg Heparin Sodium (Porcine) (Heparin Sod 5,000 Unit/0.5 Ml Vial) 5,000 units SQ Q12 DAYNE Stop: 04/02/25 08:59 Last Admin: 03/07/25 07:38 Dose: 5,000 units Sodium Chloride (Nss) 1,000 mls @ 50 mls/hr IV .Q20H DAYNE Stop: 03/08/25 07:59 Isosorbide Mononitrate (Isosorbide [place] Extended Rel 30 Mg Tabcr) 30 mg PO DAILY DAYNE Stop: 04/02/25 08:59 Last Admin: 03/07/25 07:37 Dose: 30 mg Lisinopril (Lisinopril 20 Mg Tab) 20 mg PO DAILY [facility] Stop: 04/02/25 08:59 Last Admin: 03/05/25 08:17 Dose: 20 mg Magnesium Chloride (Magnesium Chloride W/Calcium 64mg Delayed Rel Tab) 128 mg PO BID DAYNE Stop: 04/06/25 20:59 Metoprolol Tartrate (Metoprolol Tartrate 25 Mg Tab) 25 mg PO BID DAYNE Stop: 04/02/25 08:59 Last Admin: 03/07/25 07:38 Dose: 25 mg Mirtazapine (Mirtazapine Tab 15 Mg Tab) 15 mg PO HS [facility] Stop: 04/02/25 20:59 Last Admin: 03/06/25 21:33 Dose: 15 mg Ondansetron HCl (Ondansetron 4 Mg Od Tab) 4 mg PO Q6H PRN PRN Reason: Nausea Stop: 04/04/25 14:17 Pantoprazole Sodium (Pantoprazole 40 Mg Tab) 40 mg PO DAILY DAYNE Stop: 04/02/25 08:59 Last Admin: 03/07/25 07:37 Dose: 40 mg Polyethylene Glycol (Polyethylene (Miralax) 17 Gm Pack) 17 gm PO DAILY PRN PRN Reason: Constipation Stop: 04/02/25 02:29 Potassium Chloride (Potassium Chloride Crtab 20 Meq Tabcr) 20 meq PO TID [facility] Stop: 04/02/25 13:59 Last Admin: 03/05/25 08:19 Dose: 20 meq Sertraline HCl (Sertraline Hcl 100 Mg Tablet) 100 mg PO DAILY [facility] Stop: 04/02/25 08:59 Last Admin: 03/07/25 07:38 Dose: 100 mg Umeclidinium/Vilanterol (Umeclidinium/Vilanterol 62.5/25mcg 7 Puffs/Inhaler) 1 puffs INH QAM [facility] Stop: 04/02/25 08:59 Last Admin: 03/07/25 07:36 Dose: 1 puffs
[2025-03-07] MEDS: SODIUM CHLORIDE 0.9% 1,000 ML IV SCH (13:05)
[2025-03-07] MEDS: MAGNESIUM CHLORIDE W/CALCIUM 64MG DELAYED REL TAB PO SCH (20:59)
[2025-03-08 06:48] LABS: BUN Creatinine Ratio 23.4 (10-20); Creatinine Clr Calc Pharmacy 19.1 ml/min; Magnesium 1.4 mg/dl (1.7-2.4); Phosphorus 3.8 mg/dl (2.5-4.9); Potassium 4.1 mmol/L (3.5-5.1)
[2025-03-08 08:03] VITALS: RESP 18
[2025-03-08 10:32] VITALS: BP 119/70; TEMP 97.9; O2SAT 96
--- NOTE | 2025-03-08 11:45 | Discharge Summary ---
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, multiple lung nodules, hiatal hernia, seasonal allergic rhinitis, renal artery stenosis, me senteric artery stenosis, iliac artery stenosis bilateral, abdominal aortic aneurysm, hypertension, history of CAD, severe protein calorie moderation, GERD, dysphagia, CKD stage III, restless leg syndrome, lumbar degenerative disease, anemia due to CKD stage III, general anxiety disorder, tobacco use disorder, mild cognitive disorder., ambulates with a cane and lives with her daughter went to [facility] because of nausea vomiting and abdominal pain going for last 10 days and was found to have pneumonia, COPD exacerbation and hyponatremia and was transferred here for further care. Patient says for last 10 days she is having lot of nausea and vomiting and not able to eat anything. Associated with abdominal pain. Currently abdominal pain resolved. Having some diarrhea with black stools. Micturating okay. Denies any fevers. Having cough and bringing some phlegm. Denies any chest pain or shortness of breath. No headache. Sometimes feels dizzy associated with some double vision when she stands up quickly and and then resolves. Currently resting comfortably saturating okay on room air and hemodynamically stable. Marleni went to [facility] and was found to have some wheezing. Somewhat tachypneic and heart rates was 90s. EKG was okay. Has elevated WBC, hemoglobin was okay. Alert and oriented. Glucose was 132. Sodium was 119. K was 2.9. D-dimer was elevated at 1200. CTA chest no PE . CXR showed right lower lung pneumonia. She got 1 L of fluids before sodium was checked. [facility] had talked with the nephrology on-call and was advised for urine studies and also close follow-up of the labs and patient was placed on maintenance fluids. Initial recheck sodium went to 118 and repeat recheck sodium went to 120 before she was transferred here. Past medical history. As mentioned above Past surgical history. EGD. Laparoscopic cholecystectomy. Right breast cyst drainage. Appendectomy. Tonsillectomy. Social history. . Smokes 1 pack a day for last 50 years. No alcohol currently. No drug use. Family history. Brother had COPD. Father had diabetes. Hypertension. Tumor in colon. Mother had valvular heart disease. Brother had lung cancer. Admission Exam Per Admitting Provider General- Not in distress.Thin and frail Head- atraumatic Eyes- EOMI ENT- oropharynx clear Neck- supple, no JVD. Lungs- clear to auscultation no wheezing or crackles Heart- regular rhythm; no murmur, no gallop. Abdomen- normal bowel sounds, soft, nontender, no distension. Extremities- no pretibial edema, no erythema seen Neuro- alert, oriented , EOMI; no facial palsy; no dysarthria; moves extremities Principal Diagnosis Acute hyponatremia: Pneumonia Discharge Data Allergies Allergy/AdvReac Type Severity Reaction Status Date / Time No Known Allergies Allergy Unverified 07/10/23 19:06 Consultations 03/03/25 08:00 Consult Nephrology Routine 03/03/25 08:16 Consult Gastroenterology Routine Procedures Performed Operation Date: 03/06/25 16:30 Actual Procedures p EGD Dilatation - Sebastian Mansfield MD Hospital Course (1) Acute hyponatremia: 79-year-old female with past med significant for SIADH, dyslipidemia, prediabetes, COPD, 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 Patient was found to have serum sodium of 118; nephrology was consulted during the hospitalization; serum sodium gradually improved with fluid restriction, IV Lasix and fluids. Serum sodium was 133 at the time of the discharge. Instruction were given with the patient and patient's daughter regarding fluid restriction. GI was consulted for nausea, vomiting and abdominal pain; she underwent EGD; found to have pyloric stenosis along with esophageal ulcer which was nonbleeding; patient underwent balloon dilation. After the EGD patient reported feeling much better and was able to tolerate diet. Patient demanded multiple times to get discharged; I discussed with her to follow-up closely with her primary care doctor as she is at risk for recurrence of hyponatremia. I also discussed following up with GI provider for possible need for dilation in the future. Her lisinopril was kept on hold at the time of the discharge. Please note the above document was generated using voice recognition software. It may contain grammatical, syntax or spelling errors. Any formal questions or concerns about the content, text or information contained within the body of this dictation should be directly addressed to the provider for clarification Total Time Total Time Spent Total Time Spent (In Minutes): 56 Total Time Includes: Examination of the Patient, Discharge Planning, Medication Reconciliation, Communication With Other Providers and Other Discharge Plan Discharge Items Patient Disposition: Home - Self-Care Reason For Visit: HYPONATREMIA,COPD EXACERBATION,PNEUMONIA Discharge Diagnosis: Hyponatremia Pyloric stenosis- status post EGD and dilatation on 03/06/2025 JAMARI on CKD Pneumonia Abdominal aortic aneurysm Activity: Resume your previous activity Non-emergency contact: Primary Care Provider Call non-emergency contact if: you have any medication questions and your symptoms worsen Follow-up/Referrals: Phi Kyle DO [Primary Care Provider] - (The office will call you with a follow up appointment.) Diet: Regular Fluids: 1000ml (4 cups) Addtl Attending Provider Instructions: You were admitted to the hospital with low sodium level; you are treated during the hospitalization with medication which led to improvement in the sodium level. Please maintain fluid restriction of 1 L. The fluids includes water, tea, ice. You can have protein shakes/boost that does not count towards fluid restriction. Please hold taking lisinopril. Please repeat BMP to recheck your kidney function and sodium level during your follow-up with your primary care doctor. You need to be on long-term omeprazole 40 mg once a day. Please make an appointment with GI as outpatient. Pending Studies at Discharge: No Stand-Alone Forms: My magnetU, Smoking Cessation Medications and DC Order Prescriptions: Continued atorvastatin 40 mg tablet 40 mg PO DAILY isosorbide mononitrate 30 mg tablet extended release 24 hr 30 mg PO DAILY sertraline 100 mg tablet 100 mg PO DAILY famotidine 20 mg tablet 20 mg PO DAILY buspirone 10 mg tablet 5 mg PO BID omeprazole 20 mg capsule,delayed release(DR/EC) 40 mg PO DAILY montelukast 10 mg tablet 10 mg PO DAILY Patient Comments: pt unaware if she takes, not on "list" mirtazapine 15 mg tablet 15 mg PO HS gabapentin 100 mg capsule 100 mg PO BID albuterol sulfate 90 mcg/actuation HFA aerosol inhaler 2 puff INHALATION Q6H PRN (Reason: Shortness Of Breath Or Wheezing) metoprolol tartrate 25 mg tablet 25 mg PO BID fenofibrate nanocrystallized 145 mg tablet 145 mg PO DAILY icosapent ethyl 1 gram capsule 2 g PO BID Trelegy Ellipta 200-62.5-25 mcg blister with device 1 inh INHALATION DAILY calcium carbonate-vit D3-min 600 mg calcium- 400 unit Tablet 1 tab PO DAILY Rx Instructions: patient taking calcium -vitamin d-minerals 600-800 mg -unit tab aspirin 81 mg Tablet,Delayed Release (Dr/Ec) 81 mg PO DAILY magnesium chloride [Mag 64] 64 mg Tablet,Delayed Release (Dr/Ec) 64 mg PO BID Qty: 20 0RF Patient Comments: pt "suppose" to take potassium chloride 20 mEq Tablet,Er Particles/Crystals 20 meq PO DAILY Qty: 10 0RF Patient Comments: pt "suppose" to take docusate sodium 100 mg Capsule 100 mg PO BID PRN (Reason: constiaption ) Qty: 30 0RF Held lisinopril 20 mg tablet 20 mg PO DAILY Hold Instructions: Resume on 03/16/25. Discontinued amlodipine 10 mg tablet 10 mg PO DAILY Patient Comments: pt no longer takes doxycycline hyclate 100 mg Capsule 100 mg PO BID Qty: 7 0RF Patient Comments: no longer takes cefuroxime axetil 500 mg Tablet 500 mg PO BID Qty: 7 0RF Discharge Orders: Discharge Order (Routine); Ordered 03/08/25 Ordered By: Daniel Figueroa/Other Patient Handouts: AAA, Hyponatremia Dc, ED Chronic Kidney Disease (CKD) Admission Data Admit Date/Time: 03/03/25 02:06 Attending Provider: Daniel Medellin Admit Provider: Adama Gates Primary Care Provider: Phi Kyle Other Providers: Anamaria Dao; Saud Ashton; Ralf Fonseca; Andres Sands; Nathalia Merritt; Adama Gates; Isaac Atkins Other Interventions: Discharge Summary Assessment (RN) Last Done: 03/08/25 11:48
[2025-03-08 11:51] VITALS: PULSE 70
== END 2025-03-08 13:00 | disposition home or self-care (01) | DRG 380 ==
LOC: SUATTDRO 01:59 → 2E 01:59 → SUATTDRO 02:06